=== PATIENT | female | born 1970 | race Caucasian/White ===

== ENCOUNTER → 2017-12-05 11:57 | Outpatient (CLI) | payer OTHER, SELFPAY ==
[2017-12-05 14:11] LABS: Absolute Lymphocyte Count 1.89 X10^3/ul (0.83-4.51); Absolute Neutrophil Count 4.5 X10^3/uL (2.0-7.7); Basophil# 0.02 X10^3/uL; Basophil% 0.3 % (0-1); Eosinophil# 0.43 X10^3/uL; Hematocrit 43.6 % (37-47); Hemoglobin 14.6 g/dl (12.0-15.0); Lymphocyte # 1.89 X10^3/ul (4.0); Lymphocyte % 26.2 % (19-41); Mean Corp Hgb Conc 33.5 g/gl (32-36); Mean Corpuscular Hgb 29.7 pg (27.0-32.0); Mean Corpuscular Volume 88.8 fL (81-99); Mean Platelet Vol. 9.9 fl (6.2-12.0); Monocyte# 0.38 X10^3/uL; Monocyte% 5.3 % (0-10); Neutrophil # 4.49 X10^3/uL (2.7-7.7); Neutrophil % 62.1 % (47-70); POSITIVE COUNT NO; POSITIVE DIFFERENTIAL NO; POSITIVE MORPHOLOGY NO; Platelet Count 317 K/mm3 (150-450); RBC Distribution Width CV 12.6 % (11.6-14.6); RBC Distribution Width SD 40.4 fl (35.1-43.9); Red Blood Count 4.91 M/mm3 (4.2-5.4); White Blood Count 7.2 K/mm3 (4.4-11.0)
[2017-12-05 14:29] LABS: ALB/GLOB Ratio 0.8 RATIO (0.9-2.4); AST(SGOT) 28 U/L (15-37); Alanine Aminotransfer ALT/SGPT 39 U/L (13-56); Albumin, Serum 3.6 g/dL (3.2-5.0); Alkaline Phosphatase 98 U/L (45-117); Anion Gap 6 (5-15); BUN 8 mg/dL (7-18); BUN/Creat Ratio 11.1 RATIO (10-20); Calcium,Total 8.9 mg/dL (8.5-10.1); Chloride 103 mmol/L (98-107); Creatinine, Serum 0.72 mg/dL (0.55-1.02); EST Glomerular Filtration Rate 92 mL/min (>60); Est Glom Filt Rate - Afr Amer 112 mL/min (>60); Globulin 4.3 g/dL (2.2-4.2); Glucose 189 mg/dL (74-106); Magnesium 1.8 mg/dL (1.6-2.6); Potassium 4.2 mmol/L (3.5-5.1); Protein, Total 7.9 g/dL (6.4-8.2); Sodium Level 137 mmol/L (136-145); Thyroid Stim Hormone (TSH) 2.81 uIU/mL (0.358-3.74)
[2017-12-05 14:34] LABS: Microalbumin:Creatinine Ratio 117.4 mg/g CRE (<30 mg/g CRE)
== END ==
PROVIDERS: Family Provider Family Medicine; PCP Family Medicine; Visit Provider Family Medicine
DX: E13.65 Other specified diabetes mellitus with hyperglycemia (principal); I10 Essential (primary) hypertension; E03.9 Hypothyroidism, unspecified
CPT/HCPCS: 36415; 80053; 82043; 82570; 83036; 83735; 84443; 85025

== ENCOUNTER → 2018-06-20 09:04 | Outpatient (CLI) | payer OTHER, SELFPAY ==
[2018-06-20 17:36] LABS: Absolute Neutrophil Count 6.6 X10^3/uL (2.0-7.7); Basophil# 0.05 X10^3/uL; Basophil% 0.5 % (0-1); Eosinophil# 0.28 X10^3/uL; Eosinophils% 2.8 % (0-5); Hematocrit 42.4 % (37-47); Hemoglobin 14.4 g/dl (12.0-15.0); Lymphocyte % 24.3 % (19-41); Mean Corpuscular Hgb 30.1 pg (27.0-32.0); Mean Corpuscular Volume 88.7 fL (81-99); Monocyte# 0.59 X10^3/uL; Neutrophil # 6.55 X10^3/uL (2.7-7.7); Neutrophil % 66.2 % (47-70); Platelet Count 354 K/mm3 (150-450); RBC Distribution Width CV 12.6 % (11.6-14.6); RBC Distribution Width SD 40.2 fl (35.1-43.9); Red Blood Count 4.78 M/mm3 (4.2-5.4); White Blood Count 9.9 K/mm3 (4.4-11.0)
[2018-06-20 17:38] LABS: POSITIVE COUNT NO; POSITIVE DIFFERENTIAL NO; POSITIVE MORPHOLOGY NO
[2018-06-20 18:01] LABS: Hemoglobin A1c 9.1 % (4.2-6.3)
[2018-06-20 18:14] LABS: ALB/GLOB Ratio 0.8 RATIO (0.9-2.4); AST(SGOT) 17 U/L (15-37); Alanine Aminotransfer ALT/SGPT 41 U/L (13-56); Albumin, Serum 3.6 g/dL (3.2-5.0); Alkaline Phosphatase 118 U/L (45-117); BUN 9 mg/dL (7-18); BUN/Creat Ratio 15.1 RATIO (10-20); Calcium,Total 9.1 mg/dL (8.5-10.1); Cholesterol 211 mg/dL (200); EST Glomerular Filtration Rate 114 mL/min (>60); Est Glom Filt Rate - Afr Amer 138 mL/min (>60); Globulin 4.3 g/dL (2.2-4.2); Glucose 128 mg/dL (74-106); Protein, Total 7.9 g/dL (6.4-8.2); Triglycerides 164 mg/dL
[2018-06-20 18:15] LABS: Anion Gap 10 (5-15); Chloride 103 mmol/L (98-107); High Density Lipoprotein 48 mg/dL; Microalbumin,Random Urine 34.7 mg/L (NO RANGE EST.); Microalbumin:Creatinine Ratio 58.2 mg/g CRE (<30 mg/g CRE); Potassium 3.9 mmol/L (3.5-5.1); Sodium Level 139 mmol/L (136-145); T4 Free Direct 1.93 ng/dL (0.76-1.46); Thyroid Stim Hormone (TSH) 1.54 uIU/mL (0.358-3.74); Very Low Density Lipoprotein 33 mg/dL (5-40)
== END ==
PROVIDERS: Family Provider Family Medicine; PCP Family Medicine; Visit Provider Family Medicine
DX: R07.9 Chest pain, unspecified (principal); E11.29 Type 2 diabetes mellitus with other diabetic kidney complication
CPT/HCPCS: 36415; 80053; 80061; 82043; 82570; 83036; 84439; 84443; 85025

== ENCOUNTER → 2018-07-21 06:39 | Outpatient (CLI) | payer OTHER, SELFPAY ==
[2018-06-25 14:08] VITALS: BMI 45.4
--- NOTE | 2018-07-21 06:42 | ECHOD_ITS ---
Reason For Study: chest pain Procedure This was a 2D Doppler, Color Flow transthoracic echocardiogram. Exam performed in department. Left Ventricle Normal LV size. Left ventricular systolic function is normal. The estimated ejection fraction is 65 %. Stage 1 diastolic dysfunction. No regional wall motion abnormalities noted. Right Ventricle Normal RV size. Normal systolic function. Atria Normal left atrium. Normal right atrium. Mitral Valve Normal mitral valve. Tricuspid Valve Normal tricuspid valve. Mild tricuspid valve insufficiency. Pulmonary artery systolic pressure is 25 mmHg. Aortic Valve Normal aortic valve. Trisinus/trileaflet aortic valve. Pulmonic Valve Normal pulmonic valve. Great Vessels Normal aortic root. The pulmonary artery is normal size. Normal inferior vena cava. Pericardium/Pleural No pericardial effusion. MMode/2D Measurements & Calculations LVIDd: 4.3 cm IVSd: 1.1 cm Ao root diam: 2.8 cm LVIDs: 2.8 cm LVPWd: 1.1 cm RVDd: 3.6 cm FS: 35.6 % LAV(MOD-bp): 35.3 ml LA A4 area: 14.6 cm2 LA dimension(2D): 3.8 cm LAV(MOD-bp) Indexed: 17.7 ml/m2 LAV(MOD-sp2): 35.0 ml LAV(MOD-sp4): 35.7 ml RA A4 area: 9.7 cm2 Doppler Measurements & Calculations MV E max timothy: 80.4 cm/sec Lat Peak E' Timothy: 10.5 cm/sec Med Peak E' Timothy: 12.6 cm/sec MV A max timothy: 98.8 cm/sec E/E' lat: 7.7 E/E' med: 6.4 MV E/A: 0.81 Ao V2 max: 147.8 cm/sec LV V1 max: 105.4 cm/sec PA V2 max: 119.9 cm/sec Ao max P.7 mmHg LV V1 max P.5 mmHg TR max timothy: 224.3 cm/sec TR max P.2 mmHg Interpretation Summary Normal LV size. Left ventricular systolic function is normal. The estimated ejection fraction is 65 %. Stage 1 diastolic dysfunction. Mild tricuspid valve insufficiency. Ordering Physician: Michael Liu Referring Physician: Elmre Richards Performed By: Sera Escobar, ERIC, RVT
--- NOTE | 2018-07-21 09:56 | STRESSREP ---
Stress Test Report Exercise myocardial perfusion stress test. 47-year-old lady with a history of coronary artery disease. Medications: Indapamide losartan and amlodipine. Stress protocol: Resting EKG demonstrates normal sinus rhythm with a rate of 75 bpm right bundle branch block and a blood pressure 130/90 mmHg. The patient exercised according to the regular Nikolay protocol for total duration of 3 minutes and 25 seconds the maximum heart rate attained was 148 bpm which was 85% of maximum predicted heart rate the maximum workload was 5.1 metabolic equivalents. At rest there were no ST or T wave changes noted suggest ischemia peak exercise upsloping ST changes only were noted with number the criteria for ischemia. Frequent premature ventricular complexes were noted similar pattern of bigeminy as well as couplets. No sustained runs were noted. The resting blood pressure 130/90 with a peak blood pressure 160/88. Myocardial perfusion protocol. 14.1 mCi of technetium 99m sestamibi was injected at rest. The patient exercised according to regular Nikolay protocol for 3-1/2 minutes at peak exercise 44.3 mCi of technetium 99m sestamibi was injected stress images were obtained stress and rest images were reconstructed and compared in the short axis vertical long horizontal long axis. Gated images was obtained Perfusion SPECT analysis: Review of the stress images demonstrate a focal defect noted in the distal anterior wall and apex on the stress and resting images suggesting a previous infarct. The rest of the images appeared to be normal except for mild reduction in the mid anterior wall. The patient however did not exercise enough to induce ischemia in this territory. Gated SPECT analysis: The gated ejection fraction is noted to be 80%. Conclusion: Myocardial perfusion stress test with evidence of apical infarct. Low exercise capacity does not completely exclude ischemia. Preserved ejection fraction.
== END ==
PROVIDERS: Family Provider Family Medicine; PCP Family Medicine; Referring Provider Internal Medicine Cardiovascular Disease; Visit Provider Internal Medicine Cardiovascular Disease
DX: E78.5 Hyperlipidemia, unspecified (principal)
CPT/HCPCS: 78452; 93017; 93306; A9500; A4216

== ENCOUNTER → 2018-07-23 09:33 | Outpatient (CLI) | payer OTHER, SELFPAY ==
[2018-06-25 14:08] VITALS: BMI 45.4
--- NOTE | 2018-07-23 09:36 | RAD_ITS ---
STUDY: X-RAY CHEST REASON FOR EXAM: Female, 47 years old. Chest pain TECHNIQUE: Frontal and lateral views COMPARISON: None. FINDINGS: Slightly elevated right hemidiaphragm. The lungs are clear and expanded. There is no demonstrated pleural abnormality. Normal size heart. Normal mediastinum and tim. Normal visualized pulmonary arteries. Normal visualized aortic arch and descending thoracic aorta. Normal visualized thoracic spine. Normal visualized ribs, clavicles, and shoulders. There is no demonstrated abnormality of the visualized soft tissue structures of the upper abdomen. RAD/Chest PA and Lateral IMPRESSION: Normal x-ray examination of the chest. Electronically Signed: Girish Mora DO at 23:52 EDT Tel [phone], Service support ,
== END ==
PROVIDERS: Family Provider Family Medicine; PCP Family Medicine; Referring Provider Internal Medicine Cardiovascular Disease; Visit Provider Internal Medicine Cardiovascular Disease
DX: I10 Essential (primary) hypertension (principal); R07.9 Chest pain, unspecified; R94.31 Abnormal electrocardiogram [ECG] [EKG]; I45.10 Unspecified right bundle-branch block
CPT/HCPCS: 71046

== ENCOUNTER 2018-07-30 06:51 | Day surgery (SDC) | payer OTHER, SELFPAY ==
[2018-06-25 14:08] VITALS: BMI 45.4
[2018-07-23 09:42] LABS: Absolute Lymphocyte Count 1.96 X10^3/ul (0.83-4.51); Absolute Neutrophil Count 5.3 X10^3/uL (2.0-7.7); Basophil# 0.04 X10^3/uL; Basophil% 0.5 % (0-1); Eosinophil# 0.38 X10^3/uL; Eosinophils% 4.7 % (0-5); Hematocrit 41.4 % (37-47); Hemoglobin 13.9 g/dl (12.0-15.0); Lymphocyte # 1.96 X10^3/ul (4.0); Mean Corp Hgb Conc 33.6 g/gl (32-36); Mean Corpuscular Hgb 29.8 pg (27.0-32.0); Mean Corpuscular Volume 88.7 fL (81-99); Mean Platelet Vol. 9.4 fl (6.2-12.0); Monocyte# 0.49 X10^3/uL; Neutrophil # 5.26 X10^3/uL (2.7-7.7); Neutrophil % 64.6 % (47-70); Platelet Count 379 K/mm3 (150-450); RBC Distribution Width CV 12.5 % (11.6-14.6); RBC Distribution Width SD 40.1 fl (35.1-43.9); Red Blood Count 4.67 M/mm3 (4.2-5.4); White Blood Count 8.2 K/mm3 (4.4-11.0)
[2018-07-23 09:45] LABS: POSITIVE COUNT NO; POSITIVE DIFFERENTIAL NO; POSITIVE MORPHOLOGY NO
[2018-07-23 09:52] LABS: Prothrombin Time (Protime)PT. 12.7 SECONDS (11.7-14.9)
[2018-07-23 10:02] LABS: Anion Gap 6 (5-15); BUN 10 mg/dL (7-18); BUN/Creat Ratio 15.8 RATIO (10-20); Calcium,Total 8.9 mg/dL (8.5-10.1); Chloride 106 mmol/L (98-107); Creatinine, Serum 0.63 mg/dL (0.55-1.02); EST Glomerular Filtration Rate 107 mL/min (>60); Est Glom Filt Rate - Afr Amer 129 mL/min (>60); Glucose 143 mg/dL (74-106); Sodium Level 140 mmol/L (136-145)
[2018-07-29 07:47] VITALS: BMI 45.5
--- NOTE | 2018-07-30 08:02 | PCM.CONS.C ---
Reason for Consult Date of Consultation: 07/30/18 Reason for Consultation: Chest pain History of Present Illness: KVNG PÉREZ, is a 47 F who presents to the hospital for a cardiac catheterization procedure. She is a pleasant lady with a history of hypertension, hyperlipidemia, diabetes mellitus, obesity who says that she is been having some chest discomfort episodes and on the last visit to her college campus she found that she was really struggling to keep up. She is denied any dizziness or diaphoresis near syncope or syncope but she has this tightness across her chest and also in her armpits. Exercise capacity she thinks has reduced recently. She also has a history of partial thyroidectomy but her TSH has been normal. She has had no other major surgeries. She did have an electrocardiogram performed which demonstrated sinus rhythm with a right bundle branch block pattern. Her physical exam here today demonstrates clear lung horowitz regular rate and rhythm no pedal edema her blood pressure is normal . Past Medical History Allergies/Adverse Reactions: Allergies aspirin Allergy (Verified 06/25/18 13:55) Anaphylaxis codeine Allergy (Verified 06/25/18 13:55) Anaphylaxis Penicillins Allergy (Verified 06/25/18 13:55) rash acetaminophen [From Vicodin] Adverse Reaction (Verified 06/25/18 13:55) syncope erythromycin base [From Erythrocin] Adverse Reaction (Verified 06/25/18 13:55) Unknown hydrocodone [From Vicodin] Adverse Reaction (Verified 06/25/18 13:55) syncope ketorolac [From Toradol] Adverse Reaction (Verified 06/25/18 13:57) anxious Home Medications: Ambulatory Orders Medication Instructions Recorded buspirone 10 mg tablet 10 mg PO DAILY tab 06/24/18 ergocalciferol (vitamin D2) 50,000 unit PO .weekly tab 06/24/18 unit tablet glatiramer 40 mg/mL subcutaneous 40 mg SC ONCE 06/24/18 syringe indapamide 1.25 mg tablet 1.25 mg PO QAM 06/24/18 insulin glargine (U-300) conc. 300 30 unit SC DAILY 06/24/18 unit/mL (3 mL) subcutaneous pen levothyroxine 150 mcg capsule 150 mcg PO DAILY 06/24/18 losartan 50 mg tablet 50 mg PO BID tab 06/24/18 magnesium 400 mg (as magnesium 400 mg PO BID tab 06/24/18 oxide) tablet metformin 500 mg tablet 500 mg PO BID 06/24/18 amlodipine 10 mg tablet 10 mg PO DAILY #90 tab 06/25/18 clopidogrel 75 mg tablet 75 mg PO QDAY #30 tab 07/23/18 Past Medical History (Chronic Problems): Chronic Problems (Last Reviewed 06/25/18 @ 14:35 by Michael Liu MD) Essential (primary) hypertension (Chronic) Hyperlipidemia (Chronic) Right bundle branch block (RBBB) (Chronic) Smoking Status: Former smoker Alcohol: None Drugs: None Review of Systems - Review of Systems General: Denies: Fever, Night Sweats, Fatigue HEENT: Denies: Vision Change Cardiovascular: Reports: Chest Discomfort. Denies: Shortness of Breath, Orthopnea, PND, Peripheral Edema, Palpitations, Lightheadedness, Dizziness, Near Syncope, Syncope Respiratory: Denies: Cough, Sputum Production, Hemoptysis Gastrointestinal: Denies: Hematemesis, Hematochezia, Melena Genitourinary: Denies: Dysuria, Hematuria Skin: Denies: Rash Neurological: Reports: Dizziness Psychiatric: Reports: Anxiety Endocrine: Reports: Heat Intolerance Hematologic/ Lymphatic: Reports: Lymph Node Enlargement Objective: Weight: 233 lb Body Mass Index (BMI) 45.5 Rhythm: EKG: ECHO: Stress Test: Cardiac Cath: PCI: CT Surgery: Holter monitor: EPS: PPM: CXR: Chest CT Scan: Assessment/Plan 1, Abnormal stress test. She does have a history of an abnormal stress test with evidence of previous apical infarct. She exercised to a low metabolic workload and therefore ischemia cannot be completely excluded. On the basis of this it was decided to pursue a cardiac catheterization the risk benefits alternatives have been explained to her she understands and agrees to proceed. Depending on the results further recommendations will be made. Thank you for allowing me to participate in the care of your patient. Please don't hesitate to call if any issues arise
--- NOTE | 2018-07-30 09:10 | CL.D_ITS ---
Patient Name: KVNG PÉREZ Study Date: 07/30/2018 Performing: Michael Liu MD Ht: 59.84 inches 152 cm : 1970 Wt: 233.69 lbs 106 kg Age: 47 Gender: female BSA: 1.99 PROCEDURE(S) PERFORMED HK32-MTU/COR/LV CLINICAL PROFILE AND INDICATIONS Indications: Suspected CAD Heart Failure: None Stress/Imaging Stress Test w/SPECT MPI: Yes Result: IndeterminantStress Test with SPECT MPI: Inde terminant CAD Presentations: Symptom unlikely to be ischemic. CONCLUSIONS Essentially normal coronary arteries with mild myocardial bridging in a small area of apical akinesis and preserved ejection fraction. RECOMMENDATIONS Medical therapy DESCRIPTION OF PROCEDURE The patient arrived to the procedure lab. The risks and benefits of the procedure as well as a full d escription of our services here and current unavailability of surgical backup were fully explained to the patient and/or their significant other prior to the catheterization. The Timeout was completed, verifying the correct patient and procedure. The patient's procedural site was prepped and draped in the usual fashion. Local anesthetic was given subcutaneously to right radial region with Lidocaine 2% . Using a modified Seldinger technique, arterial access was obtained via the right radial artery, a 6 Fr sheath was inserted. Left Coronary Artery selective angiography was performed in multiple views u sing a 5 Fr. 4.0 [place] catheter. Right Coronary Artery selective angiography was then performed in mu ltiple views using a 5 Fr. Angled Pigtail catheter. Left Ventriculography was performed in KAY projec tion using a 5 Fr. Pigtail catheter. LV to AO pullback pressures were then recorded.The arterial sheath was pulled and a TR Band was applied for hemostasis CORONARY ANGIOGRAPHY DOMINANCE: Right Dominant LEFT HEART ASSESSMENT Left Ventricular Ejection Fraction: by LV Gram 55 % Apical Akinesis Normal Left Ventricular systolic function LEFT MAIN: Angiographically normal LEFT ANTERIOR DECENDING ARTERY: No significant disease noted, Myocardial bridging CIRCUMFLEX ARTERY: Angiographically normal RIGHT CORONARY ARTERY: Angiographically normal COMPLICATIONS No Complications PROCEDURE MEDICATIONS Versed 1 mg IV Fentanyl 50 mcg IV Versed 1 mg IV Oxygen: 2 L/min via nasal cannula Heparin diluted in 23cc Heparinized saline. Patient given 10cc IA of this solution. 07/30/2018 08:09: 45 Verapamil 2.5mg, Ntg 100mcgs, 2000 units of Heparin diluted in 23cc Heparinized saline. Patient give n 10cc IA of this solution. 07/30/2018 08:09:45 SUMMARY OF HEMODYNAMIC DATA Time AIR REST ECG 07:10:14 AO 96/67 (80) SA 08:12:12 LV 111/0, 11 08:20:06 LV 115/0, 10 08:20:14 LV 125/1, 10 08:21:40 Signed By Michael Liu MD On 07/30/2018 09:09:11 Michael Liu MD
== END 2018-07-30 13:05 | disposition home or self-care (01) ==
LOC: CLSP 06:51
PROVIDERS: Family Provider Family Medicine; PCP Family Medicine; Referring Provider Internal Medicine Cardiovascular Disease; Visit Provider Internal Medicine Cardiovascular Disease
DX: R07.9 Chest pain, unspecified (principal); I10 Essential (primary) hypertension; E78.5 Hyperlipidemia, unspecified; I45.10 Unspecified right bundle-branch block; E11.69 Type 2 diabetes mellitus with other specified complication; R80.9 Proteinuria, unspecified; E03.9 Hypothyroidism, unspecified; G35 Multiple sclerosis; E55.9 Vitamin D deficiency, unspecified; E66.9 Obesity, unspecified; Z68.42 Body mass index [BMI] 45.0-49.9, adult; Z79.4 Long term (current) use of insulin; Z79.899 Other long term (current) drug therapy; Z87.891 Personal history of nicotine dependence
CPT/HCPCS: 36415; 80048; 85025; 85610; 93458; 99152; 99153; J7040; C1769; C1894; Q9967

== ENCOUNTER → 2019-02-19 09:54 | Outpatient (CLI) | payer OTHER, SELFPAY ==
[2019-02-18 15:24] VITALS: BMI 45.4
--- NOTE | 2019-02-18 15:40 | LIP_PTH ---
PATIENT: KVNG PÉREZ LOC: [facility] U#:[id number] AGE/SX: 54/F ROOM: RE02/19/[address]: Dr. Julio Gregorio MD : 1970 BED: DIS: SPEC #: [id number] RECD: 02/19/19 09:27 STATUS: GOMEZ MERE #: [id number] JACQUELIN: 02/18/19 15:[address]: Julio Gregorio DEPT: SURGICAL PATHOLOGY RECD BY: Carlos Sanchez ENTERED: 02/19/19 10:45 SP TYPE: LIPOMA OTHR DR: Dr. Elmer Richards MD Tissues: Soft tissues, NOS Procedures: Surgery Specimen Level III HEADER OPERATION: Excision right frontoparietal lipoma PRE-OP DIAGNOSIS: Right frontoparietal lipoma TISSUE SUBMITTED: Right frontoparietal lipoma MICROSCOPIC DIAGNOSIS Soft tissue mass, right frontoparietal region, excision: Mature adipose tissue consistent with lipoma. SJ:deborah 02/20/19 MICROSCOPIC DESCRIPTION Slides are reviewed. GROSS DESCRIPTION Received in fixative is one container labeled with the patient's name and designated right frontoparietal lipoma. The specimen consists of a piece of yellow adipose tissue measuring 2 x 2 x 0.3 cm. Also present in the container are multiple pieces of yellow adipose tissue measuring in aggregate 1 x 0.3 x 0.3 cm. The largest piece is bisected. The entire specimen is submitted in one cassette. / MARIELA:deborah 02/19/19 TC:1 CPT: 64131
== END ==
PROVIDERS: Family Provider Family Medicine; PCP Family Medicine; Referring Provider Surgery; Visit Provider Surgery
DX: D17.0 Benign lipomatous neoplasm of skin and subcutaneous tissue of head, face and neck (principal)
CPT/HCPCS: 88304

== ENCOUNTER → 2019-03-30 09:43 | Outpatient (CLI) | payer OTHER, SELFPAY ==
[2019-02-18 15:24] VITALS: BMI 45.4
[2019-03-30 12:18] LABS: Absolute Lymphocyte Count 1.77 X10^3/uL (0.83-4.51); Absolute Neutrophil Count 4.7 X10^3/uL (2.0-7.7); Basophil# 0.05 X10^3/uL; Basophil% 0.7 % (0-1); Eosinophil# 0.35 X10^3/uL; Eosinophils% 4.9 % (0-5); Hematocrit 43.4 % (37-47); Hemoglobin 14.6 g/dL (12.0-15.0); Lymphocyte # 1.77 X10^3/ul (4.0); Lymphocyte % 24.6 % (19-41); Mean Corp Hgb Conc 33.6 g/dL (32-36); Mean Corpuscular Hgb 30.5 pg (27.0-32.0); Mean Corpuscular Volume 90.8 fL (81-99); Mean Platelet Vol. 9.9 fl (6.2-12.0); Monocyte# 0.34 X10^3/uL; Monocyte% 4.7 % (0-10); NRBC Flagged by Analyzer 0 % (0-5); Neutrophil # 4.66 X10^3/uL (2.7-7.7); Neutrophil % 64.8 % (47-70); Platelet Count 359 K/mm3 (150-450); RBC Distribution Width CV 11.9 % (11.6-14.6); RBC Distribution Width SD 39.6 fl (35.1-43.9); Red Blood Count 4.78 M/mm3 (4.2-5.4); White Blood Count 7.2 K/mm3 (4.4-11.0)
[2019-03-30 12:34] LABS: Hemoglobin A1c 7.7 % (4.2-6.3)
[2019-03-30 12:36] LABS: ALB/GLOB Ratio 0.9 RATIO (0.9-2.4); AST(SGOT) 17 U/L (15-37); Alanine Aminotransfer ALT/SGPT 31 U/L (13-56); Albumin, Serum 3.5 g/dL (3.2-5.0); Alkaline Phosphatase 98 U/L (45-117); Anion Gap 7 (5-15); BUN 10 mg/dL (7-18); BUN/Creat Ratio 13.8 RATIO (10-20); Calcium,Total 9.2 mg/dL (8.5-10.1); Chloride 106 mmol/L (98-107); Cholesterol 228 mg/dL (200); Creatinine, Serum 0.73 mg/dL (0.55-1.02); EST Glomerular Filtration Rate 91 mL/min (>60); Est Glom Filt Rate - Afr Amer 110 mL/min (>60); Glucose 155 mg/dL (74-106); High Density Lipoprotein 48 mg/dL; Magnesium 1.8 mg/dL (1.6-2.6); Potassium 4.3 mmol/L (3.5-5.1); Protein, Total 7.5 g/dL (6.4-8.2); Sodium Level 139 mmol/L (136-145); T4 Free Direct 1.62 ng/dL (0.76-1.46); Thyroid Stim Hormone (TSH) 2.24 uIU/mL (0.358-3.74); Triglycerides 163 mg/dL; Very Low Density Lipoprotein 33 mg/dL (5-40)
[2019-03-30 12:37] LABS: Vitamin D,25 Hydroxy 29.4 ng/mL (29.95-100.01)
[2019-03-30 12:44] LABS: PTHIN 62.5 pg/mL (18.4-80.1)
== END ==
PROVIDERS: Family Provider Family Medicine; PCP Family Medicine; Visit Provider Family Medicine
DX: E11.29 Type 2 diabetes mellitus with other diabetic kidney complication (principal); E03.9 Hypothyroidism, unspecified; I10 Essential (primary) hypertension; R53.83 Other fatigue; E78.00 Pure hypercholesterolemia, unspecified
CPT/HCPCS: 36415; 80053; 80061; 82306; 83036; 83735; 83970; 84439; 84443; 85025

== ENCOUNTER → 2019-12-29 16:13 | Outpatient (CLI) | payer OTHER, SELFPAY ==
[2019-09-30 13:34] VITALS: BMI 45.4
[2019-12-29 17:42] LABS: Vitamin D,25 Hydroxy 31.9 ng/mL
[2019-12-29 17:46] LABS: ALB/GLOB Ratio 0.8 RATIO (0.9-2.4); AST(SGOT) 20 U/L (15-37); Alanine Aminotransfer ALT/SGPT 30 U/L (13-56); Albumin, Serum 3.5 g/dL (3.2-5.0); Alkaline Phosphatase 95 U/L (45-117); Anion Gap 5 (5-15); BUN 13 mg/dL (7-18); BUN/Creat Ratio 19.3 RATIO (10-20); Chloride 105 mmol/L (98-107); Cholesterol 224 mg/dL (200); Creatinine, Serum 0.68 mg/dL (0.55-1.02); EST Glomerular Filtration Rate 98 mL/min (>60); Est Glom Filt Rate - Afr Amer 119 mL/min (>60); Globulin 4.3 g/dL (2.2-4.2); Glucose 92 mg/dL (74-106); High Density Lipoprotein 50 mg/dL; Potassium 3.7 mmol/L (3.5-5.1); Protein, Total 7.8 g/dL (6.4-8.2); Sodium Level 136 mmol/L (136-145); T4 Free Direct 1.63 ng/dL (0.76-1.46); Thyroid Stim Hormone (TSH) 0.18 uIU/mL (0.358-3.74); Triglycerides 192 mg/dL; Very Low Density Lipoprotein 38 mg/dL (5-40)
[2019-12-29 17:52] LABS: Microalbumin:Creatinine Ratio 19.8 mg/g CRE (<30 mg/g CRE)
== END ==
PROVIDERS: PCP Family Medicine; Referring Provider Internal Medicine Endocrinology, Diabetes & Metabolism; Visit Provider Internal Medicine Endocrinology, Diabetes & Metabolism
DX: E11.9 Type 2 diabetes mellitus without complications (principal); I10 Essential (primary) hypertension; E78.5 Hyperlipidemia, unspecified; E06.3 Autoimmune thyroiditis; E03.8 Other specified hypothyroidism; E55.9 Vitamin D deficiency, unspecified
CPT/HCPCS: 36415; 80053; 80061; 82043; 82306; 82570; 84439; 84443

== ENCOUNTER → 2020-05-03 12:11 | Outpatient (CLI) | payer OTHER, SELFPAY ==
[2020-05-03 11:36] VITALS: BMI 45.0
[2020-05-03 15:27] LABS: Vitamin D,25 Hydroxy 20.3 ng/mL
[2020-05-03 15:31] LABS: ALB/GLOB Ratio 0.9 RATIO (0.9-2.4); AST(SGOT) 27 U/L (15-37); Alanine Aminotransfer ALT/SGPT 42 U/L (13-56); Albumin, Serum 3.5 g/dL (3.2-5.0); Alkaline Phosphatase 105 U/L (45-117); Anion Gap 6 (5-15); BUN 14 mg/dL (7-18); BUN/Creat Ratio 21.3 RATIO (10-20); Calcium,Total 8.9 mg/dL (8.5-10.1); Chloride 103 mmol/L (98-107); Cholesterol 264 mg/dL (200); Creatinine, Serum 0.66 mg/dL (0.55-1.02); EST Glomerular Filtration Rate 101 mL/min (>60); Est Glom Filt Rate - Afr Amer 123 mL/min (>60); Globulin 4.1 g/dL (2.2-4.2); Glucose 125 mg/dL (74-106); High Density Lipoprotein 63 mg/dL; Potassium 4.4 mmol/L (3.5-5.1); Protein, Total 7.6 g/dL (6.4-8.2); Sodium Level 135 mmol/L (136-145); T4 Free Direct 1.46 ng/dL (0.76-1.46); Thyroid Stim Hormone (TSH) 1.81 uIU/mL (0.358-3.74); Triglycerides 170 mg/dL; Very Low Density Lipoprotein 34 mg/dL (5-40)
[2020-05-03 15:58] LABS: Microalbumin,Random Urine 23.4 mg/L (NO RANGE EST.); Microalbumin:Creatinine Ratio 81.5 mg/g CRE (<30 mg/g CRE)
== END ==
PROVIDERS: PCP Family Medicine; Referring Provider Internal Medicine Endocrinology, Diabetes & Metabolism; Visit Provider Internal Medicine Endocrinology, Diabetes & Metabolism
DX: E03.8 Other specified hypothyroidism (principal); E06.3 Autoimmune thyroiditis; E55.9 Vitamin D deficiency, unspecified; E11.9 Type 2 diabetes mellitus without complications; E78.5 Hyperlipidemia, unspecified; I10 Essential (primary) hypertension
CPT/HCPCS: 36415; 80053; 80061; 82043; 82306; 82570; 84439; 84443

== ENCOUNTER → 2020-05-23 | Outpatient (CLI) | payer OTHER, BC, SELFPAY ==
[2020-05-03 11:36] VITALS: BMI 45.0
== END | disposition home or self-care (01) ==
PROVIDERS: PCP Family Medicine; Visit Provider Obstetrics & Gynecology
DX: Z36.85 Encounter for antenatal screening for Streptococcus B (principal)
CPT/HCPCS: 87081

== ENCOUNTER 2020-07-19 14:02 | Outpatient (RCR) | payer OTHER, BC, SELFPAY ==
[2020-05-03 11:36] VITALS: BMI 45.0
[2020-07-19] MEDS: COVID-19 VACC, MRNA(PFIZER)/PF 30 MCG/0.3 ML SYRINGE IM (13:48)
[2020-08-09] MEDS: COVID-19 VACC, MRNA(PFIZER)/PF 30 MCG/0.3 ML SYRINGE IM (13:52)
== END 2020-07-19 23:59 ==
LOC: IMMUN 14:02
PROVIDERS: PCP Family Medicine; Visit Provider Family Medicine
DX: Z23 Encounter for immunization (principal)
CPT/HCPCS: 0001A; 0002A; 91300

== ENCOUNTER → 2020-09-22 12:43 | Outpatient (CLI) | payer OTHER, SELFPAY ==
[2020-09-15 11:19] VITALS: BMI 45.1
== END ==
PROVIDERS: PCP Family Medicine; Referring Provider Physician Assistant Medical; Visit Provider Physician Assistant Medical
DX: R00.2 Palpitations (principal); R07.9 Chest pain, unspecified; R06.00 Dyspnea, unspecified
CPT/HCPCS: 93225; 93226

== ENCOUNTER → 2020-10-13 12:37 | Outpatient (CLI) | payer OTHER, SELFPAY ==
[2020-09-15 11:19] VITALS: BMI 45.1
== END ==
PROVIDERS: PCP Family Medicine; Referring Provider Physician Assistant Medical; Visit Provider Physician Assistant Medical
DX: I44.1 Atrioventricular block, second degree (principal); Q24.5 Malformation of coronary vessels
CPT/HCPCS: 93225; 93226

== ENCOUNTER → 2020-12-20 16:19 | Outpatient (CLI) | payer OTHER, SELFPAY ==
[2020-09-15 11:19] VITALS: BMI 45.1
--- NOTE | 2020-12-20 16:20 | BI_ITS ---
MAMMOGRAPHY - BILATERAL SCREENING REASON FOR EXAM: Female, 50 years old. Routine annual screening examination. PERTINENT HISTORY: Grandmother with breast cancer. TECHNIQUE: Digital bilateral breast verito (3D mammographic acquisition) in the CC and MLO projections. 2-D mediolateral oblique (MLO) and craniocaudad (CC) views of both breasts were obtained. CAD: Full Field Digital Mammography with Computer Added Detection was performed. COMPARISON: Comparison is made with prior outside examination dated 10/19/2019. FINDINGS: Breast Composition: The breasts are heterogeneously dense, which may obscure small masses. There are no dominant masses or suspicious calcifications. Stable benign-appearing bilateral axillary lymph nodes. No other significant abnormalities are identified. There has been no significant change since the prior study. BI/SCRN MAMM (CAD)W/VERITO BILAT IMPRESSION: Stable bilateral screening mammogram. Yearly follow-up mammogram recommended. (A) ASSESSMENT CATEGORY: BIRADS Category 2: Benign. A letter regarding these results will be sent to the patient by the facility within 30 days. Approximately 10% of breast cancers are not detected by mammography. A normal mammogram should not delay biopsy of a clinically suspicious abnormality. [id number] Electronically Signed: Chauncey Estrada MD at 8:15 EDT , Service support ,
[2020-12-20 18:00] LABS: Vitamin D,25 Hydroxy 42.8 ng/mL
== END ==
PROVIDERS: Nurse Practitioner Family; PCP Family Medicine; Referring Provider Obstetrics & Gynecology; Visit Provider Obstetrics & Gynecology
DX: Z12.31 Encounter for screening mammogram for malignant neoplasm of breast (principal); E55.9 Vitamin D deficiency, unspecified
CPT/HCPCS: 36415; 77063; 77067; 82306

== ENCOUNTER 2021-01-17 06:59 | Day surgery (SDC) | payer OTHER, SELFPAY ==
--- NOTE | 2021-01-17 07:16 | HP.PCM_ITS ---
HPI - General HPI Narrative KVNG PÉREZ, is a 50 F who presents for screening colonoscopy. This is based upon age. She has no bright red blood per rectum or melena. No change in bowel habits. She has not had COVID-19. She has been vaccinated. She states that Dr. 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 She has essential hypertension right bundle branch block and hyperlipidemia. It also appears that she is on Ozempic and insulin and gabapentin and Jardiance in addition to her other medicines She states that she does get short of breath when she walks approximately 1 mile [facility] Medical History (Updated 01/17/21 @ 07:[address] Julio Gregorio MD) Abnormal electrocardiogram Anemia Anxiety Arthritis Back pain Cardiology follow-up encounter Cervicalgia Coronary-myocardial bridge Dietary restriction Easy bruising Essential (primary) hypertension Excessive bleeding Former smoker History of echocardiogram History of edema History of pain when walking History of stress test Hx of vertigo Hyperlipidemia Hypothyroidism Insomnia Migraine headache Mobitz type 2 second degree AV block Multiple sclerosis Multiple sclerosis Obesity Obesity Rheumatoid arthritis Right bundle branch block (RBBB) Seasonal allergies Shortness of breath on exertion Spinal stenosis Thyroid disease Type 2 diabetes mellitus Uncontrolled diabetes mellitus with microalbuminuria Vitamin D deficiency Home Medications glatiramer 40 mg/mL subcutaneous syringe 40 mg SC .Q3DAYS 06/24/18 [History Last Taken Unknown] losartan 50 mg tablet 100 mg PO DAILY tab 09/29/20 [History Last Taken Unknown] amlodipine 5 mg tablet 2.5 mg PO DAILY tab 10/28/20 [History Last Taken Unknown] hydrochlorothiazide 25 mg tablet 25 mg PO DAILY #30 tab 10/28/20 [Rx Last Taken Unknown] cholecalciferol (vitamin D3) 1,250 mcg PO .Q2WEEK 01/16/21 [History Last Taken Unknown] empagliflozin [Jardiance] 25 mg PO DAILY 01/16/21 [History Last Taken Unknown] gabapentin 300 mg PO QHS 01/16/21 [History Last Taken Unknown] insulin degludec [Tresiba FlexTouch U-100] 28 unit SC 1500 01/16/21 [History Last Taken Unknown] levothyroxine 150 mcg PO DAILY 01/16/21 [History Last Taken Unknown] meloxicam [Mobic] 7.5 mg PO DAILY 01/16/21 [History Last Taken Unknown] semaglutide [Ozempic] 1 mg SC WEBB 01/16/21 [History Last Taken 01/08/21] tizanidine 4 mg PO QHS 01/16/21 [History Last Taken Unknown] Allergy/AdvReac Type Severity Reaction Status Date / Time aspirin Allergy Anaphylaxis Verified 01/16/21 11:41 codeine Allergy Anaphylaxis Verified 01/16/21 11:41 Penicillins Allergy rash Verified 01/16/21 11:41 acetaminophen [From Vicodin] AdvReac syncope Verified 01/16/21 11:41 erythromycin base AdvReac Unknown Verified 01/16/21 11:41 [From Erythrocin] hydrocodone [From Vicodin] AdvReac syncope Verified 01/16/21 11:41 ketorolac [From Toradol] AdvReac anxious Verified 01/16/21 11:41 Family History Other Adopted Surgical History (Updated 01/16/21 @ 11:59 by Katina Martinez) H/O partial thyroidectomy History of cardiac catheterization History of carpal tunnel release History of hysterectomy History of left heart catheterization (07/30/18) History of parathyroidectomy Hx of cholecystectomy Social History Smoking Status: Former smoker quit date: 05/06/96 pack-years: 2 alcohol intake: never substance use type: does not use caffeine: Yes what type of physical activity do you participate in: walking frequency: daily ROS Constitutional Constitutional: Denies change in weight Cardiovascular Cardiovascular: Denies chest pain with activity Respiratory/Chest Respiratory/Chest: Reports shortness of breath with exertion Gastrointestinal Gastrointestinal: Denies change in bowel habits or change in stool character Physical Exam Const alert, oriented x3 and no apparent distress General Appearance: cooperative and comfortable Eyes General Eye: normal appearance of both eyes Neck General: normal visual inspection Chest inspection of chest normal Resp Effort and Inspection: able to speak in complete sentences and symmetric chest movement Auscultation: clear to auscultation bilaterally Cardio regular rate and regular rhythm GI soft to palpation, non-tender and non-distended Extremity no calf tenderness Neuro oriented x3 Psych thought process normal Assessment & Plan Assessment/Plan (1) Screening for intestinal cancer: PLAN: I recommended the patient a screening colonoscopy with possible biopsy or polypectomy as indicated. She is aware of the technique, benefit, risk, alternatives. Because of her medical comorbidities we have arranged monitored anesthesia care. It is a note that she does presents via open access today. She has had an opportunity to ask and have questions answered. We will proceed at her discretion. Julio Gregorio M.D., F.A.C.S. Procedure Criteria Type of Procedure Procedure Type: Elective Elective Risks - COVID COVID Risk Discussion: The surgeon/proceduralist and patient have discussed in detail the risk of exposure to and/or potential harm posed by the COVID-19 virus with having a surgery/procedure at this time versus the risk of delaying the surgery/procedure. It is not possible to know either the risk of delaying the surgery or procedure or chance of getting an infection with perfect accuracy, but a joint decision was made between the patient and the surgeon/proceduralist to proceed at this time with the scheduled surgery/procedure as indicated on the consent form.
[2021-01-17 07:20] VITALS: BP 184/97; PULSE 82; RESP 16; TEMP 36.4; O2SAT 96; BMI 46.2
[2021-01-17 07:45] LABS: Bedside Glucose 167 mg/dL (70-110)
--- NOTE | 2021-01-17 08:00 | COLBX_PTH ---
PATIENT: KVNG PÉREZ LOC: [facility] U#:[id number] AGE/SX: 50/F ROOM: RE01/17/[address]: Dr. Julio Gregorio MD : 1970 BED: DIS: 01/17/2021 SPEC #: [id number] RECD: 01/17/21 10:10 STATUS: GOMEZ SEVERINO #: [id number] JACQUELIN: 01/17/21 08:[address]: Julio Gregorio DEPT: SURGICAL PATHOLOGY RECD BY: Samia Cueva ENTERED: 01/17/21 12:28 SP TYPE: COLON BX OTHR DR: Dr. Elmer Richards MD Tissues: A - Transverse colon B - Rectum, NOS Procedures: Surgery Specimen Level IV HEADER OPERATION: Colonoscopy ? open access (MAC) PRE-OP DIAGNOSIS: Screening for intestinal cancer TISSUE SUBMITTED: A ? Distal transverse polyp biopsy, B ? Rectal polyp MICROSCOPIC DIAGNOSIS A. Distal transverse colon polyp, biopsy: Colonic mucosa with focal hyperplastic change. B. Rectal polyp, biopsy: Consistent with severely cauterized hyperplastic polyp. AM:deborah 01/18/2021 MICROSCOPIC DESCRIPTION Slides are reviewed. GROSS DESCRIPTION A - Received in fixative is one container labeled with the patient's name and designated distal transverse polyp biopsy. The specimen consists of multiple irregular fragments of light joya soft tissue that in aggregate measure 0.2 x 0.2 x 0.1 cm. The specimen is totally submitted in one cassette. B - Received in fixative is one container labeled with the patient's name and designated rectal polyp. The specimen consists of one irregular fragment of light joay soft tissue that measures 0.5 x 0.5 x 0.6 cm. The specimen is totally submitted in one cassette. / AM:deborah 01/17/2021 TC:5 [facility]: [id number] x2
[2021-01-17 08:51] VITALS: BP 124/75; BP 184/97; PULSE 92; RESP 16; TEMP 36.5; O2SAT 100
--- NOTE | 2021-01-17 08:51 | OP.COLON_ITS ---
Patient Name: Apple Landry Procedure Date: 01/17/2021 8:22 AM Date of : 1970 Age: 50 Procedure: Colonoscopy Indications: Screening for colorectal malignant neoplasm Providers: Julio Gregorio MD Medicines: See the Anesthesia note for documentation of the administered medications Patient Profile: Last Colonoscopy: none. The patient's first colonoscopy is today. Complications: No immediate complications. Procedure: Pre-Anesthesia Assessment: - Prior to the procedure, a History and Physical was performed, and patient medications and allergies were reviewed. The patient's tolerance of previous anesthesia was also reviewed. The risks and benefits of the procedure and the sedation options and risks were discussed with the patient. All questions were answered, and informed consent was obtained. Prior Anticoagulants: The patient has taken no previous anticoagulant or antiplatelet agents. ASA Grade Assessment: II - A patient with mild systemic disease. After reviewing the risks and benefits, the patient was deemed in satisfactory condition to undergo the procedure. After I obtained informed consent, the scope was passed under direct vision. Throughout the procedure, the patient's blood pressure, pulse, and oxygen saturations were monitored continuously. The adult colonoscope was introduced through the anus and advanced to the cecum, identified by appendiceal orifice and ileocecal valve. The colonoscopy was performed without difficulty. The patient tolerated the procedure well. The quality of the bowel preparation was good. The ileocecal valve and the appendiceal orifice were photographed. Scope In: 8:29:46 AM Scope Withdrawal Time 0 hours 7 minutes 48 seconds Scope Out: 8:45:33 AM Total Procedure Duration Time 0 hours 15 minutes 47 seconds Findings: Hemorrhoids were found on perianal exam. A 5 mm polyp was found in the distal transverse colon. The polyp was sessile. The polyp was removed with a cold biopsy forceps. Resection and retrieval were complete. A 8 mm polyp was found in the rectum. The polyp was sessile. The polyp was removed with a hot snare. Resection and retrieval were complete. The exam was otherwise without abnormality. Impression: - Hemorrhoids found on perianal exam. - One 5 mm polyp in the distal transverse colon, removed with a cold biopsy forceps. Resected and retrieved. - One 8 mm polyp in the rectum, removed with a hot snare. Resected and retrieved. - The examination was otherwise normal. Recommendation: - Discharge patient to home. - Resume previous diet. - Continue present medications. - Repeat colonoscopy in 5 years for surveillance based on pathology results. - Telephone my office for pathology results in 1 week. Procedure Code(s): --- Professional --- 75759, Colonoscopy, flexible; with removal of tumor(s), polyp(s), or other lesion(s) by snare technique 32319, 59, Colonoscopy, flexible; with biopsy, single or multiple Diagnosis Code(s): --- Professional --- Z12.11, Encounter for screening for malignant neoplasm of colon K64.9, Unspecified hemorrhoids D12.3, Benign neoplasm of transverse colon (hepatic flexure or splenic flexure) K62.1, Rectal polyp CPT copyright 2017 [employer]. All rights reserved. The codes documented in this report are preliminary and upon station mechanic review may be revised to meet current compliance requirements. Julio Gregorio MD 01/17/2021 8:50:25 AM This report has been signed electronically. Number of Addenda: 0 Note Initiated On: 01/17/2021 8:22 AM
--- NOTE | 2021-01-17 08:51 | OP.CCLET_ITS ---
01/17/2021 Elmer Richards [address] [place] [address] Re : Colonoscopy procedure for Apple Landry Dear Dr. Richards This procedure was performed on Sunday, January 17, 2021. My impressions and recommendations are as follows: Impressions : - Hemorrhoids found on perianal exam. - One 5 mm polyp in the distal transverse colon, removed with a cold biopsy forceps. Resected and retrieved. - One 8 mm polyp in the rectum, removed with a hot snare. Resected and retrieved. - The examination was otherwise normal. Recommendations : - Discharge patient to home. - Resume previous diet. - Continue present medications. - Repeat colonoscopy in 5 years for surveillance based on pathology results. - Telephone my office for pathology results in 1 week. My findings are described in the full procedure note, which is enclosed. If I can be of further assistance, please feel free to contact me at Doctor phone number(s): Work: . Sincerely, Julio Gregorio MD 01/17/2021 8:50:25 AM This report has been signed electronically.
[2021-01-17 08:55] VITALS: BP 117/98; BP 184/97; PULSE 93; RESP 16; O2SAT 99
[2021-01-17 09:00] VITALS: BP 102/75; BP 184/97; PULSE 82; RESP 16; O2SAT 100
[2021-01-17 09:06] VITALS: BP 118/73; BP 184/97; PULSE 80; RESP 16; TEMP 35.9; O2SAT 95
[2021-01-17 09:28] VITALS: BP 184/97
== END 2021-01-17 09:30 ==
LOC: EN 07:00 → AC 07:01
PROVIDERS: PCP Family Medicine; Referring Provider Family Medicine; Visit Provider Surgery
PROC: 0DJD8ZZ Inspection of Lower Intestinal Tract, Via Natural or Artificial Opening Endoscopic (ICD-10-PCS; CPT 45378; principal; 2021-01-17 07:55)
DX: Z12.11 Encounter for screening for malignant neoplasm of colon (principal); K63.5 Polyp of colon; K64.9 Unspecified hemorrhoids; K62.1 Rectal polyp; I10 Essential (primary) hypertension; E03.9 Hypothyroidism, unspecified; E55.9 Vitamin D deficiency, unspecified; E66.9 Obesity, unspecified; Z68.42 Body mass index [BMI] 45.0-49.9, adult; E78.5 Hyperlipidemia, unspecified; F41.9 Anxiety disorder, unspecified; G35 Multiple sclerosis; M06.9 Rheumatoid arthritis, unspecified; Q24.5 Malformation of coronary vessels; E11.9 Type 2 diabetes mellitus without complications; G47.00 Insomnia, unspecified; I45.10 Unspecified right bundle-branch block; Z86.2 Personal history of diseases of the blood and blood-forming organs and certain disorders involving the immune mechanism; Z79.4 Long term (current) use of insulin; Z79.899 Other long term (current) drug therapy; Z87.891 Personal history of nicotine dependence
CPT/HCPCS: 45380; 45385; 82962; 88305; J7120

== ENCOUNTER → 2021-01-31 10:48 | Outpatient (CLI) | payer OTHER, SELFPAY ==
--- NOTE | 2021-01-31 17:04 | PFTCOMP ---
COMPLETE PULMONARY FUNCTION TEST INTERPRETATION Brief HPI: Patient is a 50 year old female, currently under the care of Vesta Dahl, who presents to [facility] for complete pulmonary function tests secondary to diagnosis of dyspnea. Respiratory therapist reports good effort and reproducible results. Interpretation: Forced expiration spirometry shows no large airways obstructive ventilatory defect with an FEV1 of 86% predicted. There is no significant bronchodilator response by strict ATS criteria. Spirograms are of good quality and plateau normally. The respiratory flow volume loop shows a normal pattern. Lung volumes by body plethysmography show a normal total lung capacity at 3.63 L, 87% predicted. All other lung volumes are within normal limits. Diffusion capacity by carbon monoxide is normal at 73% predicted. The airway resistance is normal. No previous pulmonary function tests were available for review. Impression: These pulmonary function tests are within normal limits
== END ==
PROVIDERS: PCP Family Medicine; Referring Provider Nurse Practitioner Gerontology; Visit Provider Nurse Practitioner Gerontology
DX: R06.00 Dyspnea, unspecified (principal)
CPT/HCPCS: 94060; 94726; 94729

== ENCOUNTER 2021-02-05 19:24 | Observation (INO) | payer OTHER, SELFPAY ==
[2021-02-05 19:26] VITALS: BP 149/92; PULSE 77; RESP 14; TEMP 35.8; O2SAT 98; BMI 47.2
--- NOTE | 2021-02-05 19:44 | EKG12_ITS ---
Test Reason : PALPITATIONS Blood Pressure : / mmHG Vent. Rate : 075 BPM Atrial Rate : 075 BPM P-R Int : 240 ms QRS Dur : 146 ms QT Int : 438 ms P-R-T Axes : 051 -68 062 degrees QTc Int : 489 ms Sinus rhythm with 1st degree A-V block Right bundle branch block Left anterior fascicular block Bifascicular block Abnormal ECG Confirmed by JEAN CARLOS MCLAIN, ABI ([id number]), continuity editor MAE STILL ([id number]) on 02/07/2021 8:06:24 AM Referred By: Omid Dubois Confirmed By:ABI EVANGELISTA MD
--- NOTE | 2021-02-05 19:46 | EDS_ITS ---
HPI History of Present Illness Chief Complaint: Chest Other Detail of Chief Complaint: Palpitations Informant: patient Narrative Narrative: Patient presents to the emergency department with complaint of palpitations that she has had ongoing for months. Patient's had pulmonary function test recently and today began wearing a 30-day event monitor. Patient was called at home and told that she needed to call the ambulance to come to the emergency department. Patient called cardiology on-call and she was advised to come to the emergency department for suspected heart block. Patient denies any shortness of breath out of the ordinary. She denies any chest pain. She never had a pacemaker. She denies syncopal episodes. Prior similar symptoms: Yes PFSH [facility] Medical History (Updated 02/05/21 @ 20:[address] Priyanka Kidd, DO) Abnormal electrocardiogram Anemia Anxiety Arthritis Back pain Cardiology follow-up encounter Cervicalgia Coronary-myocardial bridge Dietary restriction Easy bruising Essential (primary) hypertension Excessive bleeding Former smoker History of echocardiogram History of edema History of pain when walking History of stress test Hx of vertigo Hyperlipidemia Hypothyroidism Insomnia Migraine headache Mobitz type 2 second degree AV block Multiple sclerosis Multiple sclerosis Obesity Obesity Obesity Rheumatoid arthritis Right bundle branch block (RBBB) Seasonal allergies Shortness of breath on exertion Spinal stenosis Thyroid disease Type 2 diabetes mellitus Uncontrolled diabetes mellitus with microalbuminuria Vitamin D deficiency Home Medications glatiramer 40 mg/mL subcutaneous syringe 40 mg SC .Q3DAYS 06/24/18 [History Last Taken Unknown] amlodipine 5 mg tablet 2.5 mg PO DAILY tab 10/28/20 [History Last Taken Unknown] cholecalciferol (vitamin D3) 1,250 mcg PO .Q2WEEK 01/16/21 [History Last Taken Unknown] empagliflozin [Jardiance] 25 mg PO DAILY 01/16/21 [History Last Taken Unknown] gabapentin 300 mg PO QHS 01/16/21 [History Last Taken Unknown] insulin degludec [Tresiba FlexTouch U-100] 28 unit SC 1500 01/16/21 [History Last Taken Unknown] levothyroxine 150 mcg PO DAILY 01/16/21 [History Last Taken Unknown] meloxicam [Mobic] 7.5 mg PO DAILY 01/16/21 [History Last Taken Unknown] tizanidine 4 mg PO QHS 01/16/21 [History Last Taken Unknown] rosuvastatin 5 mg tablet 5 mg PO DAILY #30 tab 01/23/21 [Rx Last Taken Unknown] semaglutide 1 mg/dose (4 mg/3 mL) subcutaneous pen injector 1 mg SUBCUT QWEEK #3 ml 01/23/21 [Rx Last Taken Unknown] hydrochlorothiazide 25 mg tablet 25 mg PO DAILY #30 tab 01/31/21 [Rx Last Taken Unknown] losartan 50 mg tablet 50 mg PO BID #180 tab 01/31/21 [Rx Last Taken Unknown] Allergy/AdvReac Type Severity Reaction Status Date / Time aspirin Allergy Anaphylaxis Verified 02/05/21 19:26 codeine Allergy Anaphylaxis Verified 02/05/21 19:26 Penicillins Allergy rash Verified 02/05/21 19:26 acetaminophen [From Vicodin] AdvReac syncope Verified 02/05/21 19:26 erythromycin base AdvReac Unknown Verified 02/05/21 19:26 [From Erythrocin] hydrocodone [From Vicodin] AdvReac syncope Verified 02/05/21 19:26 ketorolac [From Toradol] AdvReac anxious Verified 02/05/21 19:26 Family History Other Adopted Surgical History H/O partial thyroidectomy History of cardiac catheterization History of carpal tunnel release History of hysterectomy History of left heart catheterization (07/30/18) History of parathyroidectomy Hx of cholecystectomy Social History Smoking Status: Former smoker quit date: 05/06/96 pack-years: 2 alcohol intake: never substance use type: does not use caffeine: Yes what type of physical activity do you participate in: walking frequency: daily ROS ROS ED Constitutional Constitutional ED: Reports systems reviewed and no addt'l complaints, except as documented; Denies body ache(s), change in weight or chills Eyes Eyes: Denies acute decrease in peripheral vision, change in vision, double vision or loss of vision ENT ENT ED: Reports none; Denies ear pain, lip swelling, loss taste/smell, neck pain, otalgia or sore throat Cardiovascular Cardiovascular: Reports none and palpitations; Denies abdominal pain, chest pain with activity, leg edema, lightheadedness, rapid heart rate or syncope Respiratory/Chest Respiratory/Chest: Reports none; Denies change in mental status, dry cough, dyspnea, hemoptysis, shortness of breath at rest or shortness of breath with exertion Gastrointestinal Gastrointestinal: Reports none; Denies abdominal pain, change in stool character, diarrhea, hematemesis, hematochezia, melena, rectal bleeding or vomiting Genitourinary Genitourinary ED: Reports none; Denies abdominal discomfort, anuria, dysuria, genital pain or polyuria Musculoskeletal Musculoskeletal: Reports none; Denies arthralgias, back pain, difficulty walking, extremity pain, muscle weakness or myalgias Integumentary Reports none; Denies abscess or rash Neurologic Neurologic: Reports none; Denies abnormal gait, confusion, focal weakness, frequent falls, headache(s), loss of vision, numbness, paresthesias, radicular pain, vertigo or weakness Psychiatric Psychiatric: Reports systems reviewed and no addt'l complaints, except as documented and none; Denies behavioral changes, confusion, difficulty concentrating, hallucinations, suicidal ideation, tactile hallucinations or visual hallucinations Endocrine Endocrinology: Denies none, cold intolerance, excessive sweating, fatigue or heat intolerance Hematologic/Lymphatic Hematologic/Lymphatic: Reports none; Denies anemia, easy bleeding or easy bruising Allergic/Immunologic Allergic/Immunologic ED: Denies as per HPI, none, lip swelling, mouth swelling, throat swelling, tongue swelling or hives EXAM Physical Exam Const Vital Signs: 02/05/21 19:26 02/05/21 19:44 Temperature 96.5 F L Temperature Source Temporal Pulse Rate 77 Respiratory Rate 14 Respiratory Effort Normal Non-Labored Respiratory Pattern Normal Blood Pressure 149/92 H Blood Pressure Mean 111 Pulse Ox 98 Oxygen Delivery Method Room Air Positive well nourished and well developed General Appearance ED: well developed and NAD HEENT Reports TM's clear and moist mucous membranes normocephalic and atraumatic; Negative for trauma or tenderness Tympanic Membrane ED: Yes TM's clear Eyes PERRL and EOMs intact bilaterally General Eye ED: Negative for pale conjunctiva or scleral icterus Neck no lymphadenopathy, supple and no JVD General: Negative for tenderness Chest Wall inspection of chest normal and palpation of chest normal Chest: Negative for tenderness Resp normal respiratory effort and clear to auscultation bilaterally Effort and Inspection: Negative for respiratory distress or pain with movement Auscultation: Negative for rhonchi, wheezes or diminished lung sounds Cardio regular rate, regular rhythm, S1 normal heart sound, S2 normal heart sound and no murmurs Peripheral Pulses: pulses 2+ throughout GI normal to inspection, nondistended, normoactive bowel sounds, soft to palpation, non-tender, non-distended and no masses Back/Spine no CVA tenderness and no thoracic nor lumbar tenderness Extremity normal to inspection General Extremety ED: Negative for edema General Extremity: Negative for edema Neuro oriented x3, CN's II-XII intact bilaterally, no sensory deficits noted and gait normal Sensorium / Orientation: awake, alert, oriented to person, oriented to place and oriented to time Motor Exam: strength 5/5 throughout and strength abnormal Psych mental status grossly normal Skin no rashes or lesions noted and no wounds MDM MDM MDM Narrative Medical decision making narrative: Patient was seen in the emergency department by buffet server on-call. I was asked to have patient admitted to hospitalist service to PCU. Patient's work-up unremarkable and hemodynamically she is stable currently. On arrival patient had pacer pads placed. Lab Data Attestation: I reviewed the patient's lab results. Labs: Laboratory Results - last 24 hr 02/05/21 02/05/21 19:59 19:59 WBC 14.1 H RBC 4.97 Hgb 14.5 Hct 44.5 MCV 89.5 MCH 29.2 MCHC 32.6 RDW Std Deviation 40.2 RDW Coeff of George 12.3 Plt Count 388 MPV 9.2 Immature Gran % (Auto) 0.400 Neut % (Auto) 78.1 H Lymph % (Auto) 15.3 L Rawlins % (Auto) 4.9 Eos % (Auto) 0.9 Baso % (Auto) 0.4 Absolute Neuts (auto) 11.0 H Absolute Lymphs (auto) 2.15 Nucleated RBC % 0 Sodium 136 Potassium 3.6 Chloride 101 Carbon Dioxide 25.0 Anion Gap 10 BUN 17 Creatinine 0.85 Estim Creat Clear Calc 56.87 Est GFR (MDRD) Af Amer 91 Est GFR (MDRD) Non-Af 75 BUN/Creatinine Ratio 20.0 Glucose 315 H Calcium 9.0 Magnesium 2.1 Troponin I High Sens 5 TSH 1.21 Radiography Chest X-Ray - ED: 1 View Diagnostic Testing: One view chest x-ray obtained interpreted by myself as no acute disease process. Official radiology report pending. EKG Initial EKG: Comments: Sinus rhythm with a ventricular rate of 75 bpm with a first- degree AV block as well as a right bundle branch block and left anterior fascicular block. Prior EKG tracings: available for review Prior: Changed Discharge Plan Triage Chief Complaint: Chest Other ED Provider: Priyanka Kidd Dx/Rx/DC Orders Clinical Impression: AV heart block Prescriptions: No Action glatiramer [Copaxone] 40 mg/mL syringe 40 mg SC .Q3DAYS RF: 0 rosuvastatin 5 mg tablet 5 mg PO DAILY Qty: 30 RF: 5 Ozempic 1 mg/dose (4 mg/3 mL) pen injector 1 mg subcut QWEEK Qty: 3 RF: 4 amlodipine 5 mg tablet 2.5 mg PO DAILY RF: 0 meloxicam [Mobic] 7.5 mg Tablet 7.5 mg PO DAILY RF: 0 gabapentin 300 mg Tablet 300 mg PO QHS RF: 0 tizanidine 4 mg Capsule 4 mg PO QHS RF: 0 Jardiance 25 mg Tablet 25 mg PO DAILY RF: 0 levothyroxine 150 mcg tablet 150 mcg PO DAILY RF: 0 cholecalciferol (vitamin D3) 1,250 mcg (50,000 unit) capsule 1,250 mcg PO .Q2WEEK RF: 0 Tresiba FlexTouch U-100 100 unit/mL (3 mL) insulin pen 28 unit SC 1500 RF: 0 hydrochlorothiazide 25 mg tablet 25 mg PO DAILY Qty: 30 RF: 3 losartan 50 mg tablet 50 mg PO BID Qty: 180 RF: 3 Primary Care Provider: Elmer Richards Referrals: Elmer Richards MD [Primary Care Provider] - Disposition Disposition: Acute Care Hospital [facility]
--- NOTE | 2021-02-05 20:08 | RAD_ITS ---
STUDY: X-RAY CHEST REASON FOR EXAM: Female, 50 years old. Palpitations TECHNIQUE: Frontal view COMPARISON: None. FINDINGS: The lungs are clear and expanded. There is no demonstrated pleural abnormality. Normal size heart. Normal mediastinum and tim. Normal visualized pulmonary arteries. Normal visualized aortic arch and descending thoracic aorta. Normal visualized thoracic spine. Normal visualized ribs, clavicles, and shoulders. There is no demonstrated abnormality of the visualized soft tissue structures of the upper abdomen. RAD/Chest 1 View (Portable) IMPRESSION: Normal x-ray examination of the chest. Electronically Signed: Girish Mora DO at 20:53 EDT Tel [phone], Service support ,
[2021-02-05 20:09] LABS: Absolute Lymphocyte Count 2.15 X10^3/uL (0.83-4.51); Basophil# 0.06 X10^3/uL; Basophil% 0.4 % (0-1); Eosinophil# 0.13 X10^3/uL; Eosinophils% 0.9 % (0-5); Hematocrit 44.5 % (37-47); Hemoglobin 14.5 g/dL (12.0-15.0); Lymphocyte # 2.15 X10^3/ul (0.83-4.51); Lymphocyte % 15.3 % (19-41); Mean Corp Hgb Conc 32.6 g/dL (32-36); Mean Corpuscular Hgb 29.2 pg (27.0-32.0); Mean Corpuscular Volume 89.5 fL (81-99); Mean Platelet Vol. 9.2 fl (6.2-12.0); Monocyte# 0.69 X10^3/uL; Monocyte% 4.9 % (0-10); NRBC Flagged by Analyzer 0 % (0-5); Neutrophil # 10.98 X10^3/uL (2.7-7.7); Neutrophil % 78.1 % (47-70); Platelet Count 388 K/mm3 (150-450); RBC Distribution Width CV 12.3 % (11.6-14.6); RBC Distribution Width SD 40.2 fl (35.1-43.9); Red Blood Count 4.97 M/mm3 (4.2-5.4); White Blood Count 14.1 K/mm3 (4.4-11.0)
--- NOTE | 2021-02-05 20:11 | CON.PCM.CA_ITS ---
Assessment & Plan Assessment/Plan (1) Obesity: QUALIFIERS: Obesity type: due to excess calories Obesity classification: adult class 3 (BMI >= 40) Serious obesity comorbidity presence: with serious comorbidity Body mass index: BMI 45.0-49.9 Qualified Code(s): E66.01 - Morbid (severe) obesity due to excess calories; Z68.42 - Body mass index [BMI] 45.0-49.9, adult (2) MUSTAFA (dyspnea on exertion): (3) Mobitz type 2 second degree AV block: (4) Coronary-myocardial bridge: (5) Essential (primary) hypertension: (6) Hyperlipidemia: QUALIFIERS: Hyperlipidemia type: mixed hyperlipidemia Qualified Code(s): E78.2 - Mixed hyperlipidemia (7) Right bundle branch block (RBBB): (8) First degree AV block: PLAN: 50-year-old female, seen and evaluated in the emergency department at [facility] Patient had symptoms of palpitation. This evening the [employer]event monitor [employer] called me And stated that patient has evidence of third-degree AV block. This patient has history of hypertension, hyperlipidemia and has a evidence of right bundle branch block and type II AV block Been patient denied any symptoms of dizziness or lightheadedness no history of syncopal episode symptoms is mainly palpitation no symptoms of chest pain She has been seen and followed by her primary medical stenographer Dr. Liu and in 07/20/2018 she had cardiac catheterization Revealed normal coronary arteries with mild myocardial bridging and preserved systolic function Cardiac recommendation plan; 1. We will get the records from the event monitor. Patient is stable clinically with EKG showing right bundle and 30 degree AV block, will admit to progressive care unit for telemetry monitoring. 2. I reviewed all her current medication will continue losartan/HCTZ and will hold calcium channel marly amlodipine 3. Primary medical stenographer Dr. Liu will resume care/for continuation of cardiac care plan and further recommendation. HPI Consult Data Date of Consult: 02/05/21 HPI Narrative Reason for Consultation: Called for abnormal event monitor/3rd degree AV block HPI Narrative: KVNG PÉREZ, is a 50 F who presents [facility] Medical History Abnormal electrocardiogram Anemia Anxiety Arthritis Back pain Cardiology follow-up encounter Cervicalgia Coronary-myocardial bridge Dietary restriction Easy bruising Essential (primary) hypertension Excessive bleeding Former smoker History of echocardiogram History of edema History of pain when walking History of stress test Hx of vertigo Hyperlipidemia Hypothyroidism Insomnia Migraine headache Mobitz type 2 second degree AV block Multiple sclerosis Multiple sclerosis Obesity Obesity Obesity Rheumatoid arthritis Right bundle branch block (RBBB) Seasonal allergies Shortness of breath on exertion Spinal stenosis Thyroid disease Type 2 diabetes mellitus Uncontrolled diabetes mellitus with microalbuminuria Vitamin D deficiency Home Medications glatiramer 40 mg/mL subcutaneous syringe 40 mg SC .Q3DAYS 06/24/18 [History Last Taken Unknown] amlodipine 5 mg tablet 2.5 mg PO DAILY tab 10/28/20 [History Last Taken Unknown] cholecalciferol (vitamin D3) 1,250 mcg PO .Q2WEEK 01/16/21 [History Last Taken Unknown] empagliflozin [Jardiance] 25 mg PO DAILY 01/16/21 [History Last Taken Unknown] gabapentin 300 mg PO QHS 01/16/21 [History Last Taken Unknown] insulin degludec [Tresiba FlexTouch U-100] 28 unit SC 1500 01/16/21 [History Last Taken Unknown] levothyroxine 150 mcg PO DAILY 01/16/21 [History Last Taken Unknown] meloxicam [Mobic] 7.5 mg PO DAILY 01/16/21 [History Last Taken Unknown] tizanidine 4 mg PO QHS 01/16/21 [History Last Taken Unknown] rosuvastatin 5 mg tablet 5 mg PO DAILY #30 tab 01/23/21 [Rx Last Taken Unknown] semaglutide 1 mg/dose (4 mg/3 mL) subcutaneous pen injector 1 mg SUBCUT QWEEK #3 ml 01/23/21 [Rx Last Taken Unknown] hydrochlorothiazide 25 mg tablet 25 mg PO DAILY #30 tab 01/31/21 [Rx Last Taken Unknown] losartan 50 mg tablet 50 mg PO BID #180 tab 01/31/21 [Rx Last Taken Unknown] Allergy/AdvReac Type Severity Reaction Status Date / Time aspirin Allergy Anaphylaxis Verified 02/05/21 19:26 codeine Allergy Anaphylaxis Verified 02/05/21 19:26 Penicillins Allergy rash Verified 02/05/21 19:26 acetaminophen [From Vicodin] AdvReac syncope Verified 02/05/21 19:26 erythromycin base AdvReac Unknown Verified 02/05/21 19:26 [From Erythrocin] hydrocodone [From Vicodin] AdvReac syncope Verified 02/05/21 19:26 ketorolac [From Toradol] AdvReac anxious Verified 02/05/21 19:26 Family History Other Adopted Surgical History H/O partial thyroidectomy History of cardiac catheterization History of carpal tunnel release History of hysterectomy History of left heart catheterization (07/30/18) History of parathyroidectomy Hx of cholecystectomy Social History Smoking Status: Former smoker quit date: 05/06/96 pack-years: 2 alcohol intake: never substance use type: does not use caffeine: Yes what type of physical activity do you participate in: walking frequency: daily ROS ROS Narrative Review of 14 point system is unremarkable apart from symptoms of palpitation Physical Exam Narrative Patient seen and evaluated at bedside in the emergency department She is comfortable lying in bed Not in acute distress media monitor normal sinus rhythm and stable hemodynamically Cardiovascular examination; S1-S2 is normal, there is no murmur no systolic or diastolic murmur No gallop rhythm or pericardial rub Chest examination; clear to auscultation bilaterally Examination lower extremity no clubbing no cyanosis no lower extremity edema Central nervous system exam no focal neurological deficit. Objective Data Vital Signs: Vital Signs Temp Pulse Resp BP Pulse Ox 96.5 F L 77 14 149/92 H 98 02/05/21 19:26 02/05/21 19:26 02/05/21 19:26 02/05/21 19:26 02/05/21 19:26 Oxygen Delivery Method Room Air Weight: 241 lb 13.553 oz Body Mass Index (BMI) 47.2 Lab / Micro Data Result Diagrams: 02/05/21 19:59 02/05/21 19:59 Cardiology Labs/Tests Rhythm: Normal sinus EKG: Right bundle branch block, first-degree AV block Cardiac Cath: Cardiac catheterization in 07/20/2018 Revealed normal coronary arteries with mild myocardial bridging and preserved LV systolic function
[2021-02-05] MEDS: 0.9% Normal Saline 1,000 ML 150 ML IV (20:14)
[2021-02-05 20:29] LABS: Anion Gap 10 (5-15); BUN 17 mg/dL (7-18); Chloride 101 mmol/L (98-107); Creatinine, Serum 0.85 mg/dL (0.55-1.02); EST Glomerular Filtration Rate 75 mL/min (>60); Est Glom Filt Rate - Afr Amer 91 mL/min (>60); Estimated Creatinine Clearance 56.87 ml/min; Glucose 315 mg/dL (74-106); Magnesium 2.1 mg/dL (1.6-2.6); Potassium 3.6 mmol/L (3.5-5.1); Sodium Level 136 mmol/L (136-145); Thyroid Stim Hormone (TSH) 1.21 uIU/mL (0.358-3.74); Troponin-I HS 5 pg/mL (3.0-54.0)
--- NOTE | 2021-02-05 20:46 | HP.PCM.HOS_ITS ---
HPI - General General Date of Admission: 02/05/21 Date of Service: 02/05/21 Chief Complaint: Heart block on event monitor HPI Narrative KVNG PÉREZ, is a 50 F with a significant history of multiple sclerosis and diabetes mellitus who was instructed come to emergency department because of heart block found on the monitor. Reportedly an event monitor was placed today (day of presentation) because of palpitations. The event monitor company called patient's and discussed with on-call cardiology. Patient was instructed by event monitor company to come to the emergency department. FOR[facility], [facility] Medical History Abnormal electrocardiogram Anemia Anxiety Arthritis Back pain Cardiology follow-up encounter Cervicalgia Coronary-myocardial bridge Dietary restriction Easy bruising Essential (primary) hypertension Excessive bleeding Former smoker History of echocardiogram History of edema History of pain when walking History of stress test Hx of vertigo Hyperlipidemia Hypothyroidism Insomnia Migraine headache Mobitz type 2 second degree AV block Multiple sclerosis Multiple sclerosis Obesity Obesity Obesity Rheumatoid arthritis Right bundle branch block (RBBB) Seasonal allergies Shortness of breath on exertion Spinal stenosis Thyroid disease Type 2 diabetes mellitus Uncontrolled diabetes mellitus with microalbuminuria Vitamin D deficiency Home Medications glatiramer 40 mg/mL subcutaneous syringe 40 mg SC .Q3DAYS 06/24/18 [History Last Taken Unknown] amlodipine 5 mg tablet 2.5 mg PO DAILY tab 10/28/20 [History Last Taken Unknown] cholecalciferol (vitamin D3) 1,250 mcg PO .Q2WEEK 01/16/21 [History Last Taken Unknown] empagliflozin [Jardiance] 25 mg PO DAILY 01/16/21 [History Last Taken Unknown] gabapentin 300 mg PO QHS 01/16/21 [History Last Taken Unknown] insulin degludec [Tresiba FlexTouch U-100] 28 unit SC 1500 01/16/21 [History Last Taken Unknown] levothyroxine 150 mcg PO DAILY 01/16/21 [History Last Taken Unknown] meloxicam [Mobic] 7.5 mg PO DAILY 01/16/21 [History Last Taken Unknown] tizanidine 4 mg PO QHS 01/16/21 [History Last Taken Unknown] rosuvastatin 5 mg tablet 5 mg PO DAILY #30 tab 01/23/21 [Rx Last Taken Unknown] semaglutide 1 mg/dose (4 mg/3 mL) subcutaneous pen injector 1 mg SUBCUT QWEEK #3 ml 01/23/21 [Rx Last Taken Unknown] hydrochlorothiazide 25 mg tablet 25 mg PO DAILY #30 tab 01/31/21 [Rx Last Taken Unknown] losartan 50 mg tablet 50 mg PO BID #180 tab 01/31/21 [Rx Last Taken Unknown] Allergy/AdvReac Type Severity Reaction Status Date / Time aspirin Allergy Anaphylaxis Verified 02/05/21 19:26 codeine Allergy Anaphylaxis Verified 02/05/21 19:26 Penicillins Allergy rash Verified 02/05/21 19:26 acetaminophen [From Vicodin] AdvReac syncope Verified 02/05/21 19:26 erythromycin base AdvReac Unknown Verified 02/05/21 19:26 [From Erythrocin] hydrocodone [From Vicodin] AdvReac syncope Verified 02/05/21 19:26 ketorolac [From Toradol] AdvReac anxious Verified 02/05/21 19:26 Family History Other Adopted Surgical History H/O partial thyroidectomy History of cardiac catheterization History of carpal tunnel release History of hysterectomy History of left heart catheterization (07/30/18) History of parathyroidectomy Hx of cholecystectomy Social History adopted: Yes household members: spouse and children current occupational status: employed 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 [employer] Smoking Status: Former smoker quit date: 05/06/96 pack-years: 2 alcohol intake: never substance use type: does not use caffeine: Yes what type of physical activity do you participate in: walking frequency: daily ROS ROS Narrative Constitutional: Denies fever, chills, anorexia and change in weight Eyes: Denies blurry vision, change in eye color, change in vision, discharge from eye(s), double vision, erythema, eye pain, loss of vision or other HEENT: Denies abnormal hearing, dysphagia, ear pain, epistaxis, headache(s), hearing loss, nasal congestion, nasal discharge, post nasal drip, sinus pressure, sore throat or other Cardiovascular: Reports palpitations. Reports lightheadedness. Denies chest pain. Respiratory/Chest: Reports shortness of breath. Denies cough. Gastrointestinal: Denies abdominal pain, coffee ground emesis, constipation, diarrhea, dyspepsia, hematemesis, hematochezia, loose stools, melena, nausea, vomiting or other Genitourinary: Denies burning urination, difficulty urinating, dysuria, hematuria, nocturia, urinary frequency, urinary hesitancy, urinary incontinence, urinary urgency or other Musculoskeletal: Denies arthralgias, back pain, joint pain, joint stiffness, joint swelling, myalgias, neck pain or other Neurologic: Denies abnormal gait, abnormal speech, confusion, disequilibrium, dizziness, focal weakness, headache(s), numbness, paresthesias, seizure-like activity, seizures, syncope, tingling, tremor(s) or other Psychiatric: Denies anxiety, depression, homicidal ideation, suicidal ideation or other Endocrinology: Denies change in body appearance, cold intolerance, excessive sweating, heat intolerance, polydipsia, polyuria or other Hematologic/Lymphatic: Denies anemia, easy bleeding, easy bruising, lymphadenopathy or other Integumentary: Denies rashes Allergic/Immunologic: Denies rhinitis, hives, eczema, asthma or other Vital Signs Vital Signs Vital Signs: 02/05/21 19:26 02/05/21 19:44 Temperature 96.5 F L Temperature Source Temporal Pulse Rate 77 Respiratory Rate 14 Respiratory Effort Normal Non-Labored Respiratory Pattern Normal Blood Pressure 149/92 H Blood Pressure Mean 111 Pulse Ox 98 Oxygen Delivery Method Room Air Weight Weight: 109.7 kg Body Mass Index (BMI) 47.2 Physical Exam Narrative Physical exam: General: Well-nourished, well-developed. Head: Normocephalic, atraumatic, no tenderness Eyes: PERRLA, EOMI ENT, no trauma, moist mucous membranes, no rhinorrhea Neck: Nontender, full range of motion, no spinal tenderness, deformities, step- off CVS: Regular rate and rhythm. S1-S2 present. No murmur, gallop or rub. Respiratory : clear to auscultation bilaterally, chest wall nontender, no wheezing Abdomen: Soft, nontender, nondistended, normal bowel sounds, no masses : Deferred Back: Nontender, no CVA tenderness, no midline spinal tenderness, deformities, step-offs Extremities: Nontender full range of motion, no trauma Skin: Normal color, no trauma, abrasions Neuro: Alert, oriented, cranial nerves II through XII grossly intact. Psychiatry: Normal mood. Normal affect. Not depressed. Not anxious. Results Lab / Micro Data Result Diagrams: 02/05/21 19:59 02/05/21 19:59 Labs: Laboratory Results - last 24 hr 02/05/21 19:59: WBC 14.1 H, RBC 4.97, Hgb 14.5, Hct 44.5, MCV 89.5, MCH 29.2, MCHC 32.6, RDW Std Deviation 40.2, RDW Coeff of George 12.3, Plt Count 388, MPV 9.2, Immature Gran % (Auto) 0.400, Neut % (Auto) 78.1 H, Lymph % (Auto) 15.3 L, [place] % (Auto) 4.9, Eos % (Auto) 0.9, Baso % (Auto) 0.4, Absolute Neuts (auto) 11.0 H, Absolute Lymphs (auto) 2.15, Nucleated RBC % 0 02/05/21 19:59: Sodium 136, Potassium 3.6, Chloride 101, Carbon Dioxide 25.0, Anion Gap 10, BUN 17, Creatinine 0.85, Estim Creat Clear Calc 56.87, Est GFR (MDRD) Af Amer 91, Est GFR (MDRD) Non-Af 75, BUN/Creatinine Ratio 20.0, Glucose 315 H, Calcium 9.0, Magnesium 2.1, Troponin I High Sens 5, TSH 1.21 Assessment & Plan Assessment/Plan (1) AV heart block: (2) Obesity: QUALIFIERS: Body mass index: BMI 45.0-49.9 Obesity classification: adult class 3 (BMI >= 40) Obesity type: due to excess calories Serious obesity comorbidity presence: with serious comorbidity Qualified Code(s): E66.01 - Morbid (severe) obesity due to excess calories; Z68.42 - Body mass index [BMI] 45.0-49.9, adult PLAN: Complete heart block Telemetry strip from event monitor was reviewed. It showed complete heart block. And with ventricular rate of 42.9. EKG at the emergency department showed sinus rhythm with first-degree AV block; right bundle branch block; left anterior fascicular block. Observe at progressive care unit on telemetry. Actual chest x-ray image was independently interpreted and I agree radiologist interpretation above. Replace potassium. Magnesium is normal. Discussed case with cardiology. Cardiology consult. N.p.o. after midnight for possible pacemaker placement. Hold home NSAIDs at this time. Neutrophilic leukocytosis White count of 14.1 with neutrophilia and lymphopenia. Likely reactive. Trend. Obesity BMI: 45.4. Complicates care. Lifestyle modification recommended. Diabetes mellitus Patient with hyperglycemia on presentation Basal insulin continued. On semaglutide which she has been taking for the past 2 weeks. The Jardiance continue Accu-Chek QA [facility] with correction scale insulin ordered. Hypertension Blood pressure is not within goal Hydrochlorthiazide and losartan continued. Trend blood pressure and adjust blood pressure medications. Multiple sclerosis Glatiramer continued. Tizanidine continued. DVT prophylaxis Subcutaneous Lovenox ordered. Charges/Coding Multi Select Codes Visit Charges Observation E&M Codin Initial observation care L2
[2021-02-05 21:17] VITALS: PULSE 67; RESP 18; O2SAT 96
[2021-02-05 22:19] VITALS: BP 139/76; PULSE 60; RESP 17; TEMP 36.5; O2SAT 96
[2021-02-05 23:20] VITALS: BP 154/88; PULSE 56; RESP 18; TEMP 36.3; O2SAT 98
[2021-02-05 23:22] VITALS: BMI 45.4
--- NOTE | 2021-02-05 23:23 | PCS.PANDOC ---
PANDEMIC DOCUMENTATION INITIATED: Date: 12/19/2020 Time: 190
[2021-02-05 23:28] VITALS: PULSE 61
[2021-02-05] MEDS: 0.9% Saline Lock 10 ML Syringe IV (23:41)
[2021-02-06] VITALS (17 sets, daily range): BP systolic 119–153; BP diastolic 73–87; PULSE 59–72; RESP 18–20; TEMP 36.2–36.8; O2SAT 94–97
[2021-02-06 00:06] LABS: Bedside Glucose 156 mg/dL (70-110)
[2021-02-06] MEDS: Potassium Chloride Oral Tablet 20 MEQ 40 MEQ PO (00:18)
[2021-02-06] MEDS: tiZANidine HCl 2 MG Tablet 4 MG PO ×2 (00:53→22:14)
[2021-02-06 04:31] LABS: Bedside Glucose 123 mg/dL (70-110)
[2021-02-06] MEDS: Levothyroxine 150 MCG Tablet PO (06:05)
[2021-02-06 06:16] LABS: Bedside Glucose 97 mg/dL (70-110)
[2021-02-06 06:52] LABS: Absolute Lymphocyte Count 2.72 X10^3/uL (0.83-4.51); Absolute Neutrophil Count 9.2 X10^3/uL (2.0-7.7); Basophil# 0.06 X10^3/uL; Basophil% 0.5 % (0-1); Eosinophil# 0.17 X10^3/uL; Eosinophils% 1.3 % (0-5); Hematocrit 43.4 % (37-47); Hemoglobin 13.9 g/dL (12.0-15.0); Lymphocyte # 2.72 X10^3/ul (0.83-4.51); Lymphocyte % 21.1 % (19-41); Mean Corpuscular Hgb 29.1 pg (27.0-32.0); Mean Platelet Vol. 9.5 fl (6.2-12.0); Monocyte# 0.71 X10^3/uL; Monocyte% 5.5 % (0-10); NRBC Flagged by Analyzer 0 % (0-5); Neutrophil # 9.18 X10^3/uL (2.7-7.7); Neutrophil % 71.1 % (47-70); Platelet Count 385 K/mm3 (150-450); RBC Distribution Width CV 12.2 % (11.6-14.6); RBC Distribution Width SD 40.9 fl (35.1-43.9); Red Blood Count 4.77 M/mm3 (4.2-5.4); White Blood Count 12.9 K/mm3 (4.4-11.0)
[2021-02-06] MEDS: 0.9% Normal Saline 1,000 ML 100 ML IV ×2 (09:00→19:37)
[2021-02-06 11:10] LABS: Bedside Glucose 89 mg/dL (70-110)
--- NOTE | 2021-02-06 12:48 | PCM.PN.CARD ---
Subjective Subjective Seen and evaluated. Underwent permanent pacemaker implantation. Objective Data Vital Signs: Vital Signs Temp Pulse Resp BP Pulse Ox 97.8 F 71 18 153/79 H 97 02/06/21 10:47 02/06/21 10:47 02/06/21 10:47 02/06/21 10:47 02/06/21 10:47 Oxygen Delivery Method Room Air Weight: 240 lb 8.389 oz Body Mass Index (BMI) 45.4 Intake & Output: Intake and Output for Last 24 Hours 02/04/21 02/05/21 02/06/21 23:59 23:59 23:59 Intake Total 1025 / 1025 Balance 1025 / 1025 Lab / Micro Data Result Diagrams: 02/06/21 06:10 02/05/21 19:59 Labs: Laboratory Results - last 24 hr 02/05/21 19:59: WBC 14.1 H, RBC 4.97, Hgb 14.5, Hct 44.5, MCV 89.5, MCH 29.2, MCHC 32.6, RDW Std Deviation 40.2, RDW Coeff of George 12.3, Plt Count 388, MPV 9.2, Immature Gran % (Auto) 0.400, Neut % (Auto) 78.1 H, Lymph % (Auto) 15.3 L, [place] % (Auto) 4.9, Eos % (Auto) 0.9, Baso % (Auto) 0.4, Absolute Neuts (auto) 11.0 H, Absolute Lymphs (auto) 2.15, Nucleated RBC % 0 02/05/21 19:59: Sodium 136, Potassium 3.6, Chloride 101, Carbon Dioxide 25.0, Anion Gap 10, BUN 17, Creatinine 0.85, Estim Creat Clear Calc 56.87, Est GFR (MDRD) Af Amer 91, Est GFR (MDRD) Non-Af 75, BUN/Creatinine Ratio 20.0, Glucose 315 H, Calcium 9.0, Magnesium 2.1, Troponin I High Sens 5, TSH 1.21 02/05/21 23:54: POC Glucose 156 H 02/06/21 04:23: POC Glucose 123 H 02/06/21 06:08: POC Glucose 97 02/06/21 06:10: WBC 12.9 H, RBC 4.77, Hgb 13.9, Hct 43.4, MCV 91.0, MCH 29.1, MCHC 32.0, RDW Std Deviation 40.9, RDW Coeff of George 12.2, Plt Count 385, MPV 9.5, Immature Gran % (Auto) 0.500, Neut % (Auto) 71.1 H, Lymph % (Auto) 21.1, [place] % (Auto) 5.5, Eos % (Auto) 1.3, Baso % (Auto) 0.5, Absolute Neuts (auto) 9.2 H, Absolute Lymphs (auto) 2.72, Nucleated RBC % 0 02/06/21 10:43: POC Glucose 89 Cardiology Labs/Tests 02/05/21 19:59: WBC 14.1 H, RBC 4.97, Hgb 14.5, Hct 44.5, MCV 89.5, MCH 29.2, MCHC 32.6, Plt Count 388, MPV 9.2, Immature Gran % (Auto) 0.400, Neut % (Auto) 78.1 H, Lymph % (Auto) 15.3 L, [place] % (Auto) 4.9, Eos % (Auto) 0.9, Baso % (Auto) 0.4, Absolute Neuts (auto) 11.0 H, Nucleated RBC % 0 02/05/21 19:59: Sodium 136, Potassium 3.6, Chloride 101, Carbon Dioxide 25.0, Anion Gap 10, BUN 17, Creatinine 0.85, Est GFR (MDRD) Af Amer 91, Est GFR (MDRD) Non-Af 75, BUN/Creatinine Ratio 20.0, Glucose 315 H, Calcium 9.0, Magnesium 2.1 02/06/21 06:10: WBC 12.9 H, RBC 4.77, Hgb 13.9, Hct 43.4, MCV 91.0, MCH 29.1, MCHC 32.0, Plt Count 385, MPV 9.5, Immature Gran % (Auto) 0.500, Neut % (Auto) 71.1 H, Lymph % (Auto) 21.1, [place] % (Auto) 5.5, Eos % (Auto) 1.3, Baso % (Auto) 0.5, Absolute Neuts (auto) 9.2 H, Nucleated RBC % 0 Rhythm: EKG: ECHO: Stress Test: Cardiac Cath: PCI: CT Surgery: Holter monitor: EPS: PPM: CXR: Chest CT Scan: Radiography Diagnostic Testing: Radiology Impression Chest X-Ray 02/05/21 20:08 IMPRESSION: Normal x-ray examination of the chest. Electronically Signed: Girish Mora DO at 20:53 EDT Tel [phone], Service support , Physical Exam Const alert, oriented x3 and no apparent distress General Appearance: cooperative HEENT hearing grossly normal bilaterally Head and Scalp: atraumatic Eyes EOMs intact bilaterally Neck General: normal visual inspection Chest inspection of chest normal and palpation of chest normal Resp normal respiratory effort Auscultation: clear to auscultation bilaterally Cardio regular rate, regular rhythm, S1 normal heart sound and S2 normal heart sound Jugular Venous Distention: JVD GI normal to inspection, nondistended, normoactive bowel sounds Extremity normal capillary refill and no pedal edema Peripheral Pulses: Yes pulses 2+ throughout and femoral pulses present Skin no rashes or lesions noted Neuro oriented x3 and CN's II-XII intact bilaterally Psych Appearance: grossly normal and appropriate Assessment & Plan Assessment/Plan (1) Complete heart block by electrocardiogram: PLAN: Patient underwent permanent pacemaker implantation successfully. The plan will be to watch her overnight and recheck her pacing parameters. If the above appear to be normal then patient will be discharged for outpatient follow-up. (2) Essential (primary) hypertension: PLAN: Her blood pressure is under good control. We will resume her antihypertensive medications. Thank you for allowing me to participate in the care of your patient. Please don't hesitate to call if any issues arise.
--- NOTE | 2021-02-06 12:49 | CL.IE_ITS ---
Patient: KVNG PÉREZ Study Date: 02/06/2021 Performing: Michael Liu MD : 1970 Age: 50 Gender: female PROCEDURES PERFORMED TI95-EIEBYPR PACER INSERT+DUAL LEADS INDICATIONS Atrioventricular (AV) block PROCEDURE DETAILS The patient was brought to the Catheterization Lab in the postabsorptive nonsedated state. Infor med consent was obtained prior to the procedure. Local anesthetic was given subcutaneously to the le ft upper chest area with Lidocaine 2%. Access was achieved and a guidewire was advanced into the left subclavian vein. Incision was made to the left upper chest. PPM ventricular lead was inserted / posi tioned to right ventricular apex. PPM ventricular lead testing performed. PPM ventricular lead testin g performed. The sheath was then removed. PPM atrial lead was inserted / positioned to the right atri al appendage. PPM atrial lead testing performed. The Atrial lead sutured in place with 2-0 Silk. The Ventricular PM lead sutured in place with 2-0 Silk. Device pocket was irrigated with antibiotic. PPM generator was attached to the lead(s) and inserted into the pocket. Subcutaneous closure was complete d with 3-0 Vicryl. Skin closure was completed with 4-0 Vicryl. Steri-strips applied to left subclavicular incision. The patient tolerated the procedure well. Estimated Blood Loss: 10 ml's IMPLANTED / EX-PLANTED DEVICES IMPLANTED DEVICE(S): PPM Generator - Roadway Technician: [employer], Model #L111 Paulo TAJ PADRON, Serial # [id number] Atrial lead - Roadway Technician: [employer], Model # 7840 [employer] , Serial # [id number] Ventricular lead - Roadway Technician: [employer], Model # 7841 [employer] , Serial # [id number] DEVICE PARAMETERS ATRIAL LEAD PARAMETERS: P wave- 8.7 (mV) Current- 0.7 (mA) threshold- 0.5 (V) impedence- 782 (OHMS) VENTRICULAR LEAD PARAMETERS: R wave- 9.0 (mV) Current- 2.0 (mA) threshold- 1.4 (V) impedence- 734 (OHMS) DEVICE PARAMETERS: Mode- DDD Lower rate- 60 Upper rate- 130 CONCLUSIONS / RECOMMENDATIONS Device Conclusions: Successful implantation of a dual chamber pacemaker Device Recommendations: Follow up with Primary Care Physician PROCEDURE MEDICATIONS Fentanyl 50 mcg IV Versed 1 mg IV Versed 1 mg IV Fentanyl 25 mcg IV Oxygen: 2 L/min via nasal cannula Antibiotic given in appropriate timeframe. Clindamycin 900 mg IV 02/06/2021 11:14:16 Signed By Michael Liu MD On 02/06/2021 12:48:33 Michael Liu MD
--- NOTE | 2021-02-06 13:29 | PN.HOSP_ITS ---
Subjective Subjective Patient seen and examined. She felt anxious about the upcoming pacemaker procedure. She denied any lightheadedness, dizziness, chest pain, palpitations, nausea or vomiting. Review of systems was otherwise negative. Objective Data Objective Data Vital Signs: Vital Signs Temp Pulse Resp BP Pulse Ox 97.3 F L 72 18 140/81 H 94 02/06/21 13:22 02/06/21 13:27 02/06/21 13:22 02/06/21 13:22 02/06/21 13:22 Oxygen Delivery Method Room Air Weight: 240 lb 8.389 oz Body Mass Index (BMI) 45.4 Intake & Output: Intake and Output for Last 24 Hours 02/04/21 02/05/21 02/06/21 23:59 23:59 23:59 Intake Total 1025 / 1025 Balance 1025 / 1025 Lab / Micro Data Result Diagrams: 02/06/21 06:10 02/05/21 19:59 Labs: Laboratory Results - last 24 hr 02/05/21 19:59: WBC 14.1 H, RBC 4.97, Hgb 14.5, Hct 44.5, MCV 89.5, MCH 29.2, MCHC 32.6, RDW Std Deviation 40.2, RDW Coeff of George 12.3, Plt Count 388, MPV 9.2, Immature Gran % (Auto) 0.400, Neut % (Auto) 78.1 H, Lymph % (Auto) 15.3 L, [place] % (Auto) 4.9, Eos % (Auto) 0.9, Baso % (Auto) 0.4, Absolute Neuts (auto) 1 1.0 H, Absolute Lymphs (auto) 2.15, Nucleated RBC % 0 02/05/21 19:59: Sodium 136, Potassium 3.6, Chloride 101, Carbon Dioxide 25.0, Anion Gap 10, BUN 17, Creatinine 0.85, Estim Creat Clear Calc 56.87, Est GFR (MDRD) Af Amer 91, Est GFR (MDRD) Non-Af 75, BUN/Creatinine Ratio 20.0, Glucose 315 H, Calcium 9.0, Magnesium 2.1, Troponin I High Sens 5, TSH 1.21 02/05/21 23:54: POC Glucose 156 H 02/06/21 04:23: POC Glucose 123 H 02/06/21 06:08: POC Glucose 97 02/06/21 06:10: WBC 12.9 H, RBC 4.77, Hgb 13.9, Hct 43.4, MCV 91.0, MCH 29.1, MCHC 32.0, RDW Std Deviation 40.9, RDW Coeff of George 12.2, Plt Count 385, MPV 9.5, Immature Gran % (Auto) 0.500, Neut % (Auto) 71.1 H, Lymph % (Auto) 21.1, [place] % (Auto) 5.5, Eos % (Auto) 1.3, Baso % (Auto) 0.5, Absolute Neuts (auto) 9.2 H, Absolute Lymphs (auto) 2.72, Nucleated RBC % 0 02/06/21 10:43: POC Glucose 89 Radiography Diagnostic Testing: Radiology Impression Chest X-Ray 02/05/21 20:08 IMPRESSION: Normal x-ray examination of the chest. Electronically Signed: Girish Mora DO at 20:53 EDT Tel [phone], Service support , Physical Exam Const alert, oriented x3 and no apparent distress Exam Limitations: no limitations HEENT head/scalp atraumatic, moist oral mucous membranes and oropharynx normal Head and Scalp: normocephalic Eyes PERRL, EOMs intact bilaterally and conjunctivae normal Neck no lymphadenopathy Resp normal respiratory effort, no retractions, no use of accessory muscles and clear to auscultation bilaterally Cardio regular rate, regular rhythm, S1 normal heart sound, S2 normal heart sound and no gallops GI normal to inspection, nondistended, normoactive bowel sounds, soft to palpation, non-tender and non-distended Extremity normal to inspection, full ROM and no clubbing, cyanosis or edema Peripheral Pulses: Yes pulses 2+ throughout Skin no rashes or lesions noted Neuro oriented x3, CN's II-XII intact bilaterally and moves all extremities Sensorium / Orientation: awake and alert Psych Mood & Affect: anxious Assessment & Plan Assessment/Plan (1) Complete heart block by electrocardiogram: (2) AV heart block: PLAN: #Heart block * she was reported as having complete heart block per event montor, however per cardiology notes, it seems she has a second degree heart block * cardiology on board * for pacemaker insertion today * #Type 2 diabetes mellitus * on semaglutide, jardiance and insulin lantus * ISS. Accuchecks ACHS * #Hypertension: On losartan and hydrochlorothiazide #Multiple sclerosis: On glatiramer acetate and tizanidine. DVT prophylaxis: Lovenox Charges/Coding Visit Charges Inpatient E&M: 56059 Subs Hosp L2
--- NOTE | 2021-02-06 14:13 | CHAPLAIN ---
Type of Pastoral Visit _x__ Initial Visit ___ Follow-up Visit ___ On-call Visit ___ General Patient Visit ___ Spiritual Assessment ___ Family Conference ___ Bereavement ___ Rapid Response ___ Code Blue ___ Other (describe below) Pastoral Care Referral From _x__ Patient ___ Family ___ Nurse ___ Physician ___ Machine Chocolate Molder ___ Manager Floral ___ Other (describe below) Sacrament/Intervention _x__ Active listening ___ Anointing ___ Taoism ___ Bereavement ___ Communion ___ Aditi exploration ___ _x__ Life review _x__ Prayer ___ Reconciliation ___ Sacrament of Sick _x__ Supportive presence ___ Wedding ___ Other (describe below) Pastoral Comments patient recognized this custom applicator from a previous meeting and was seeking spiritual care support for this time; spouse is with pt; today is anniversary for couple; pt also asks prayer for family member; no other concerns
[2021-02-06 15:08] LABS: M R Staph aureus DNA By PCR Negative (Negative); Probe Check PASS; Specimen Processing Control PASS
[2021-02-06 18:06] LABS: Bedside Glucose 142 mg/dL (70-110)
[2021-02-06] MEDS: Acetaminophen 325 MG Tablet 650 MG PO (18:14)
[2021-02-06] MEDS: Losartan Potassium 50 MG Tablet PO (22:14)
[2021-02-06] MEDS: Atorvastatin Calcium 10 MG Tablet PO (22:14)
[2021-02-06 22:30] LABS: Bedside Glucose 132 mg/dL (70-110)
[2021-02-07] MEDS: Acetaminophen 325 MG Tablet 650 MG PO ×3 (00:17→11:34)
[2021-02-07 03:00] VITALS: PULSE 63
[2021-02-07 03:33] VITALS: BP 152/79; PULSE 65; RESP 18; TEMP 36.3; O2SAT 98
--- NOTE | 2021-02-07 04:58 | EKG12_ITS ---
Test Reason : AM EKG Blood Pressure : / mmHG Vent. Rate : 060 BPM Atrial Rate : 060 BPM P-R Int : 232 ms QRS Dur : 146 ms QT Int : 456 ms P-R-T Axes : 049 -55 042 degrees QTc Int : 456 ms Sinus rhythm with 1st degree A-V block with Fusion complexes Right bundle branch block Left anterior fascicular block Bifascicular block Abnormal ECG When compared with ECG of 05-FEB-2021 19:43, MANUAL COMPARISON REQUIRED, DATA IS UNCONFIRMED Confirmed by LAUREN MCLAIN, NURIS ([id number]), multimedia editor MAE STILL ([id number]) on 02/13/2021 12:51:26 PM Referred By: Omid Dubois Confirmed By:NIK AGUILAR MD
--- NOTE | 2021-02-07 05:55 | RAD_ITS ---
EXAM: XR CHEST, 3 VIEWS CLINICAL INDICATION: Post permanant ICD/Pacemaker -- inspiration/expiration. Arms Down. Wet read to MD Post permanant ICD/Pacemaker -- inspiration/expiration. Arms Down. Wet read to MD TECHNIQUE: Frontal, lateral and one additional view of the chest. This report was created using [employer] report [employer] technology. COMPARISON: 02/05/2021. FINDINGS: LUNGS AND PLEURAL SPACES: Unremarkable. No consolidation or edema. No pneumothorax. No effusion. HEART: Unremarkable. Cardiac silhouette not enlarged. MEDIASTINUM: Central airways and mediastinal contour are unremarkable. BONES/JOINTS: Unremarkable. SOFT TISSUES: Unremarkable. TUBES, LINES AND DEVICES: There is an atrial ventricular pacemaker, which has been inserted via left subclavian approach. Wires appear to be intact. RAD/Chest 3 View IMPRESSION: 1. Atrial ventricular pacemaker. 2. No evidence for acute cardiopulmonary pathology. Electronically Signed: Kris James MD at 6:32 EDT , Service support ,
[2021-02-07] MEDS: Levothyroxine 150 MCG Tablet PO (06:36)
[2021-02-07] MEDS: 0.9% Normal Saline 1,000 ML 100 ML IV (06:36)
[2021-02-07 06:55] LABS: Bedside Glucose 131 mg/dL (70-110)
[2021-02-07 07:08] LABS: Absolute Lymphocyte Count 2.15 X10^3/uL (0.83-4.51); Basophil# 0.05 X10^3/uL; Basophil% 0.5 % (0-1); Eosinophil# 0.13 X10^3/uL; Eosinophils% 1.3 % (0-5); Hematocrit 43.1 % (37-47); Hemoglobin 13.8 g/dL (12.0-15.0); Lymphocyte # 2.15 X10^3/ul (0.83-4.51); Lymphocyte % 21.8 % (19-41); Mean Corpuscular Hgb 29.4 pg (27.0-32.0); Mean Corpuscular Volume 91.7 fL (81-99); Mean Platelet Vol. 9.4 fl (6.2-12.0); Monocyte# 0.51 X10^3/uL; Monocyte% 5.2 % (0-10); NRBC Flagged by Analyzer 0 % (0-5); Neutrophil # 6.96 X10^3/uL (2.7-7.7); Neutrophil % 70.8 % (47-70); Platelet Count 342 K/mm3 (150-450); RBC Distribution Width CV 12.4 % (11.6-14.6); RBC Distribution Width SD 41.6 fl (35.1-43.9); White Blood Count 9.8 K/mm3 (4.4-11.0)
[2021-02-07 07:50] LABS: Anion Gap 9 (5-15); BUN 12 mg/dL (7-18); BUN/Creat Ratio 22.6 RATIO (10-20); Calcium,Total 8.3 mg/dL (8.5-10.1); Chloride 106 mmol/L (98-107); Creatinine, Serum 0.53 mg/dL (0.55-1.02); EST Glomerular Filtration Rate 129 mL/min (>60); Est Glom Filt Rate - Afr Amer 156 mL/min (>60); Estimated Creatinine Clearance 95.83 ml/min; Glucose 119 mg/dL (74-106); Sodium Level 139 mmol/L (136-145)
[2021-02-07 08:15] VITALS: O2SAT 98
[2021-02-07 08:18] VITALS: BP 171/94; PULSE 61; RESP 14; TEMP 36.9; O2SAT 96
[2021-02-07] MEDS: amLODIPine 2.5 MG Tablet PO (08:24)
[2021-02-07] MEDS: hydroCHLOROthiazide 25 MG Tablet PO (08:24)
[2021-02-07] MEDS: Empagliflozin 25 MG Tablet PO (08:24)
[2021-02-07] MEDS: Losartan Potassium 50 MG Tablet PO (08:24)
--- NOTE | 2021-02-07 08:33 | PN.CARD_ITS ---
Subjective Subjective Patient seen and evaluated. Appears to be doing well. Objective Data Vital Signs: Vital Signs Temp Pulse Resp BP Pulse Ox 98.5 F 61 14 171/94 H 96 02/07/21 08:18 02/07/21 08:18 02/07/21 08:18 02/07/21 08:18 02/07/21 08:18 Oxygen Delivery Method Room Air Weight: 240 lb 8.389 oz Body Mass Index (BMI) 45.4 Intake & Output: Intake and Output for Last 24 Hours 02/05/21 02/06/21 02/07/21 23:59 23:59 23:59 Intake Total 2024 1000 / 1000 Output Total 900 / 900 Balance 2024 100 / 100 Lab / Micro Data Result Diagrams: 02/07/21 05:55 02/07/21 05:55 Labs: Laboratory Results - last 24 hr 02/06/21 08:44: MRSA (PCR) Negative 02/06/21 10:43: POC Glucose 89 02/06/21 16:41: POC Glucose 142 H 02/06/21 22:11: POC Glucose 132 H 02/07/21 05:55: WBC 9.8, RBC 4.70, Hgb 13.8, Hct 43.1, MCV 91.7, MCH 29.4, MCHC 32.0, RDW Std Deviation 41.6, RDW Coeff of George 12.4, Plt Count 342, MPV 9.4, Immature Gran % (Auto) 0.400, Neut % (Auto) 70.8 H, Lymph % (Auto) 21.8, [place] % (Auto) 5.2, Eos % (Auto) 1.3, Baso % (Auto) 0.5, Absolute Neuts (auto) 7.0, Absolute Lymphs (auto) 2.15, Nucleated RBC % 0 02/07/21 05:55: Sodium 139, Potassium 4.0, Chloride 106, Carbon Dioxide 24.0, Anion Gap 9, BUN 12, Creatinine 0.53 L, Estim Creat Clear Calc 95.83, Est GFR (MDRD) Af Amer 156, Est GFR (MDRD) Non-Af 129, BUN/Creatinine Ratio 22.6 H, Glucose 119 H, Calcium 8.3 L 02/07/21 06:34: POC Glucose 131 H Cardiology Labs/Tests 02/07/21 05:55: WBC 9.8, RBC 4.70, Hgb 13.8, Hct 43.1, MCV 91.7, MCH 29.4, MCHC 32.0, Plt Count 342, MPV 9.4, Immature Gran % (Auto) 0.400, Neut % (Auto) 70.8 H , Lymph % (Auto) 21.8, [place] % (Auto) 5.2, Eos % (Auto) 1.3, Baso % (Auto) 0.5, Absolute Neuts (auto) 7.0, Nucleated RBC % 0 02/07/21 05:55: Sodium 139, Potassium 4.0, Chloride 106, Carbon Dioxide 24.0, Anion Gap 9, BUN 12, Creatinine 0.53 L, Est GFR (MDRD) Af Amer 156, Est GFR (MDRD) Non-Af 129, BUN/Creatinine Ratio 22.6 H, Glucose 119 H, Calcium 8.3 L Rhythm: EKG: ECHO: Stress Test: Cardiac Cath: PCI: CT Surgery: Holter monitor: EPS: PPM: CXR: Chest CT Scan: Radiography Diagnostic Testing: Radiology Impression Chest X-Ray 02/07/21 05:55 IMPRESSION: 1. Atrial ventricular pacemaker. 2. No evidence for acute cardiopulmonary pathology. Electronically Signed: Kris James MD at 6:32 EDT , Service support , Physical Exam Const alert, oriented x3 and no apparent distress General Appearance: cooperative HEENT hearing grossly normal bilaterally Head and Scalp: atraumatic Eyes EOMs intact bilaterally Neck General: normal visual inspection Chest inspection of chest normal and palpation of chest normal Resp normal respiratory effort Auscultation: clear to auscultation bilaterally Cardio regular rate, regular rhythm, S1 normal heart sound and S2 normal heart sound Jugular Venous Distention: JVD GI normal to inspection, nondistended, normoactive bowel sounds Extremity normal capillary refill and no pedal edema Peripheral Pulses: Yes pulses 2+ throughout and femoral pulses present Skin no rashes or lesions noted Neuro oriented x3 and CN's II-XII intact bilaterally Psych Appearance: grossly normal and appropriate Assessment & Plan Assessment/Plan (1) Mobitz type 2 second degree AV block: PLAN: Patient has intermittent Mobitz type II second-degree AV block which is symptomatic. Underwent permanent pacemaker implantation yesterday. No pneumothorax noted and pacemaker numbers appear to be stable. Will be discharged for outpatient follow-up.
--- NOTE | 2021-02-07 08:35 | PCM.DC ---
Discharge Instructions Diet Discharge Diet: No restrictions (as you feel able. No excessive stretching. No lifting your arm over your head (keep elbow below shoulder level) until seen for your pacemaker check. Do not lift your elbow away from your side until you are seen for your first visit. Keep the arm sling on if it helps remind you not to lift your arm.) Activity Additional Activity Instructions:: May shower or bathe on []. Do not scrub the incision or soak in the tub. Just wash with soap and let the water run over the incision. Gently pat dry with towel. Medications: Take your pain medication as directed. Refer to your discharge instruction sheet for a list of medications you are to take. Dressing / Incision Call your doctor if your incision/area has: Continuous Slow Oozing, Sudden Increased Bleeding, Increased Pain/ Swelling, Increased Redness, Foul Smelling Discharge and Swelling at the incision site Call your doctor if you observe: Fever of 101 or Higher, Shortness of breath, Dizziness, Fainting spells, Swelling in the ankles, Chest pain, Prolonged hiccupping and Increased palpitations (irregular heartbeat) Additional Dressing/Incision Instructions:: When dressing is removed, wash and dry incision. Keep covered with a light bandage if it is rubbing against your clothing. Do not cover the incision with an airtight bandage. Change the bandage daily. Do not remove steri strips. The strips will fall off on their own. Follow Up Care Please Follow Up With: Michael Liu MD When: Call [phone] for follow up. Follow-up in [facility]acer clinic on February 14 at 11 AM Test Results: Test results from this visit will be discussed in further detail at your follow-up appointment, if applicable. Discharge Plan Admission Admit Date/Time: 02/05/21 20:53 Attending Provider: Yissel Bauer Primary Care Provider: Elmer Richards Consulting Providers: Omid Dubois Discharge Orders/Prescriptions Prescriptions: No Action glatiramer [Copaxone] 40 mg/mL syringe 40 mg SC .Q3DAYS RF: 0 rosuvastatin 5 mg tablet 5 mg PO DAILY Qty: 30 RF: 5 Ozempic 1 mg/dose (4 mg/3 mL) pen injector 1 mg subcut QWEEK Qty: 3 RF: 4 amlodipine 5 mg tablet 2.5 mg PO DAILY RF: 0 meloxicam [Mobic] 7.5 mg Tablet 7.5 mg PO DAILY RF: 0 gabapentin 300 mg Tablet 300 mg PO QHS RF: 0 tizanidine 4 mg Capsule 4 mg PO QHS RF: 0 Jardiance 25 mg Tablet 25 mg PO DAILY RF: 0 levothyroxine 150 mcg tablet 150 mcg PO DAILY RF: 0 cholecalciferol (vitamin D3) 1,250 mcg (50,000 unit) capsule 1,250 mcg PO .Q2WEEK RF: 0 Tresiba FlexTouch U-100 100 unit/mL (3 mL) insulin pen 28 unit SC 1500 RF: 0 hydrochlorothiazide 25 mg tablet 25 mg PO DAILY Qty: 30 RF: 3 losartan 50 mg tablet 50 mg PO BID Qty: 180 RF: 3 Referrals / Follow Up: Elmer Richards MD [Primary Care Provider] -
[2021-02-07 11:07] VITALS: PULSE 63
--- NOTE | 2021-02-07 11:34 | DS.PCM_ITS ---
Providers Date of Admission: 02/05/21 Primary Care Physician: Dr. Elmer Richards MD Consultations 02/05/21 23:25 Consult: Cardiology Routine Consulting Provider: Omid Dubois Reason for Consult: Heart block EMERGENT Consult: No MD Notified: Yes Date Notified: 02/05/21 Time Notified: 20:42 Method of Notification: Verbal Method of Consult:: In-Person Reason For Visit: DYSRHYTHMIA Diagnosis Discharge Diagnosis (1) Mobitz type 2 second degree AV block: Status: Acute Code(s): I44.1 - Atrioventricular block, second degree Medications at Discharge Home Medications glatiramer 40 mg/mL subcutaneous syringe 40 mg SC .Q3DAYS 06/24/18 amlodipine 5 mg tablet 2.5 mg PO DAILY tab 10/28/20 Jardiance 25 mg PO DAILY 01/16/21 Tresiba FlexTouch U-100 28 unit SC 1500 01/16/21 cholecalciferol (vitamin D3) 1,250 mcg PO .Q2WEEK 01/16/21 gabapentin 300 mg PO QHS 01/16/21 levothyroxine 150 mcg PO DAILY 01/16/21 meloxicam [Mobic] 7.5 mg PO DAILY 01/16/21 tizanidine 4 mg PO QHS 01/16/21 rosuvastatin 5 mg tablet 5 mg PO DAILY #30 tab 01/23/21 hydrochlorothiazide 25 mg tablet 25 mg PO DAILY #30 tab 01/31/21 losartan 50 mg tablet 50 mg PO BID #180 tab 01/31/21 Ozempic 1 mg SUBCUT QWEEK 02/07/21 Hospital Course Operations None Procedures - (pacemaker insertion) Summary of Care Provided Minutes Spent on Discharge: 45 Hospital Course: Patient is a-year-old female with past medical history as outlined which includes multiple sclerosis and diabetes mellitus. She was admitted via the ED on 02/05/2021 on account of suspicion for heart block. Patient had an event monitor placed on the day of admission on outpatient basis on account of palpitations. She said was at home, the event monitor company ca lled her and told her she had heart block so she should come into the ED. She denied any chest pain, dizziness, nausea vomiting or diarrhea. Review of systems was otherwise negative. On admission, EKG was suspicious for first- degree AV block and left anterior fascicular block. Cardiology was consulted and per their review, thought patient had a Mobitz type II second-degree AV block.. Patient had a pacemaker insertion on 02/06/2021 and tolerated procedure well. She remained stable and was discharged home on 02/07/2021. She is to follow-up with cardiology and her primary care doctor. Patient seen and examined prior to discharge. She had no complaints and pain was well controlled. Review of systems otherwise negative. Labs and vitals reviewed. Home medication reviewed and reconciled. Physical Exam Const alert, oriented x3 and no apparent distress General Appearance: cooperative, comfortable and well kempt Exam Limitations: no limitations HEENT normocephalic, head/scalp atraumatic, moist oral mucous membranes and oropharynx normal Eyes PERRL, EOMs intact bilaterally and conjunctivae normal Neck no lymphadenopathy Resp normal respiratory effort, no retractions, no use of accessory muscles and clear to auscultation bilaterally Cardio regular rate, regular rhythm, S1 normal heart sound, S2 normal heart sound and no gallops Cardio Narrative: left sided pacemaker inserted, with dressing over pacemaker. GI normal to inspection, nondistended, normoactive bowel sounds, soft to palpation, non-tender and non-distended Extremity normal to inspection, full ROM and no clubbing, cyanosis or edema Skin no rashes or lesions noted Neuro oriented x3, CN's II-XII intact bilaterally and moves all extremities Sensorium / Orientation: awake and alert Psych affect normal Weight / BMI Weight Weight: 240 lb 8.389 oz Body Mass Index (BMI) 45.4 ABG / Lab / Microbiology Data Result Diagrams: 02/07/21 05:55 02/07/21 05:55 Laboratory: Laboratory Results - last 24 hr 02/06/21 08:44: MRSA (PCR) Negative 02/06/21 16:41: POC Glucose 142 H 02/06/21 22:11: POC Glucose 132 H 02/07/21 05:55: WBC 9.8, RBC 4.70, Hgb 13.8, Hct 43.1, MCV 91.7, MCH 29.4, MCHC 32.0, RDW Std Deviation 41.6, RDW Coeff of George 12.4, Plt Count 342, MPV 9.4, Immature Gran % (Auto) 0.400, Neut % (Auto) 70.8 H, Lymph % (Auto) 21.8, [place] % (Auto) 5.2, Eos % (Auto) 1.3, Baso % (Auto) 0.5, Absolute Neuts (auto) 7.0, Absolute Lymphs (auto) 2.15, Nucleated RBC % 0 02/07/21 05:55: Sodium 139, Potassium 4.0, Chloride 106, Carbon Dioxide 24.0, Anion Gap 9, BUN 12, Creatinine 0.53 L, Estim Creat Clear Calc 95.83, Est GFR (MDRD) Af Amer 156, Est GFR (MDRD) Non-Af 129, BUN/Creatinine Ratio 22.6 H, Glucose 119 H, Calcium 8.3 L 02/07/21 06:34: POC Glucose 131 H Radiography Diagnostic Testing: Radiology Impression Chest X-Ray 02/07/21 05:55 IMPRESSION: 1. Atrial ventricular pacemaker. 2. No evidence for acute cardiopulmonary pathology. Electronically Signed: Kris James MD at 6:32 EDT , Service support , D/C Instructions Discharge Diet: No restrictions (as you feel able. No excessive stretching. No lifting your arm over your head (keep elbow below shoulder level) until seen for your pacemaker check. Do not lift your elbow away from your side until you are seen for your first visit. Keep the arm sling on if it helps remind you not to lift your arm.) Additional Activity Instructions: May shower or bathe on []. Do not scrub the incision or soak in the tub. Just wash with soap and let the water run over the incision. Gently pat dry with towel. Medications: Take your pain medication as directed. Refer to your discharge instruction sheet for a list of medications you are to take. Call your doctor if your incision/area has: Continuous Slow Oozing, Sudden Increased Bleeding, Increased Pain/ Swelling, Increased Redness, Foul Smelling Discharge and Swelling at the incision site Call your doctor if you observe: Fever of 101 or Higher, Shortness of breath, Dizziness, Fainting spells, Swelling in the ankles, Chest pain, Prolonged hiccupping and Increased palpitations (irregular heartbeat) Additional Dressing/Incision Instructions: When dressing is removed, wash and dry incision. Keep covered with a light bandage if it is rubbing against your clothing. Do not cover the incision with an airtight bandage. Change the bandage daily. Do not remove steri strips. The strips will fall off on their own. Please Follow Up With: Michael Liu MD When: Call [phone] for follow up. Follow-up in pacer clinic on February 14 at 11 AM Meaningful Use Info Meaningful Use Diagnoses (Choose all that apply): None applicable Discharge Plan Admission Admit Date/Time: 02/05/21 20:53 Primary Reason for Your Visit: second degree heart block Attending Provider: Yissel Bauer Primary Care Provider: Elmer Richards Consulting Providers: Omid Dubois Discharge Orders/Prescriptions Prescriptions: Continued glatiramer [Copaxone] 40 mg/mL syringe 40 mg SC .Q3DAYS RF: 0 rosuvastatin 5 mg tablet 5 mg PO DAILY Qty: 30 RF: 5 amlodipine 5 mg tablet 2.5 mg PO DAILY RF: 0 meloxicam [Mobic] 7.5 mg Tablet 7.5 mg PO DAILY RF: 0 gabapentin 300 mg Tablet 300 mg PO QHS RF: 0 tizanidine 4 mg Capsule 4 mg PO QHS RF: 0 Jardiance 25 mg Tablet 25 mg PO DAILY RF: 0 levothyroxine 150 mcg tablet 150 mcg PO DAILY RF: 0 cholecalciferol (vitamin D3) 1,250 mcg (50,000 unit) capsule 1,250 mcg PO .Q2WEEK RF: 0 Tresiba FlexTouch U-100 100 unit/mL (3 mL) insulin pen 28 unit SC 1500 RF: 0 Ozempic 1 mg/dose (4 mg/3 mL) pen injector 1 mg subcut QWEEK RF: 0 hydrochlorothiazide 25 mg tablet 25 mg PO DAILY Qty: 30 RF: 3 losartan 50 mg tablet 50 mg PO BID Qty: 180 RF: 3 Referrals / Follow Up: Michael Liu MD [STAFF PHYSICIAN] - (As directed) Elmer Richards MD [Primary Care Provider] - Within 2 Weeks Disposition Disposition (needs filled in before D/C Order can be placed): Home, Self Care Charges/Coding Visit Charges Inpatient E&M: 19179 Disch Hosp
[2021-02-07] MEDS: Insulin Lispro 100 UNIT/ML INSULN.PEN SC (11:38)
--- NOTE | 2021-02-07 11:47 | PHA.DC.MR ---
Pharmacy Service has performed discharge medication reconciliation for this patient. The patient's discharge medication list was reviewed for discrepancies and discrepancies were resolved. Home Medications glatiramer 40 mg/mL subcutaneous syringe 40 mg SC .Q3DAYS 06/24/18 amlodipine 5 mg tablet 2.5 mg PO DAILY tab 10/28/20 Jardiance 25 mg PO DAILY 01/16/21 Tresiba FlexTouch U-100 28 unit SC 1500 01/16/21 cholecalciferol (vitamin D3) 1,250 mcg PO .Q2WEEK 01/16/21 gabapentin 300 mg PO QHS 01/16/21 levothyroxine 150 mcg PO DAILY 01/16/21 meloxicam [Mobic] 7.5 mg PO DAILY 01/16/21 tizanidine 4 mg PO QHS 01/16/21 rosuvastatin 5 mg tablet 5 mg PO DAILY #30 tab 01/23/21 hydrochlorothiazide 25 mg tablet 25 mg PO DAILY #30 tab 01/31/21 losartan 50 mg tablet 50 mg PO BID #180 tab 01/31/21 Ozempic 1 mg SUBCUT QWEEK 02/07/21
[2021-02-07 11:56] LABS: Bedside Glucose 160 mg/dL (70-110)
[2021-02-07 12:47] VITALS: BP 143/88; PULSE 66; RESP 14; TEMP 37.1; O2SAT 93
== END 2021-02-07 11:42 | disposition home or self-care (01) ==
LOC: ED 20:35 → PCU 23:04
PROVIDERS: Internal Medicine Cardiovascular Disease; Admitting Provider Hospitalist; Emergency Provider Emergency Medicine; PCP Family Medicine; Referring Provider Internal Medicine Interventional Cardiology; Visit Provider Student in an Organized Health Care Education/Training Program
DX: I44.1 Atrioventricular block, second degree (principal); I45.2 Bifascicular block; Z23 Encounter for immunization; I10 Essential (primary) hypertension; F41.9 Anxiety disorder, unspecified; Q24.5 Malformation of coronary vessels; E03.9 Hypothyroidism, unspecified; G35 Multiple sclerosis; M06.9 Rheumatoid arthritis, unspecified; E55.9 Vitamin D deficiency, unspecified; E11.65 Type 2 diabetes mellitus with hyperglycemia; E78.2 Mixed hyperlipidemia; E66.01 Morbid (severe) obesity due to excess calories; Z68.42 Body mass index [BMI] 45.0-49.9, adult; Z79.899 Other long term (current) drug therapy; Z87.891 Personal history of nicotine dependence; Z79.4 Long term (current) use of insulin; Z79.890 Hormone replacement therapy
CPT/HCPCS: 33208; 36415; 71045; 71047; 80048; 82962; 83735; 84443; 84484; 85025; 87641; 93005; 96360; 96361; 99152; 99153; 99218; 99285; J7030; J7050; 90686; A4216; C1894; G0378

== ENCOUNTER 2021-06-29 11:09 | Outpatient (CLI) | payer OTHER, SELFPAY ==
[2021-06-29 12:21] LABS: Cholesterol 173 mg/dL (200); High Density Lipoprotein 52 mg/dL; Triglycerides 246 mg/dL; Very Low Density Lipoprotein 49 mg/dL (5-40)
== END 2021-06-29 23:59 | disposition home or self-care (01) ==
LOC: BIMLAB 11:09
PROVIDERS: PCP Family Medicine; Referring Provider Nurse Practitioner Family; Visit Provider Nurse Practitioner Family
DX: I44.1 Atrioventricular block, second degree (principal); E78.2 Mixed hyperlipidemia
CPT/HCPCS: 36415; 80061

== ENCOUNTER → 2021-12-07 | Outpatient (CLI) | payer OTHER, SELFPAY ==
[2021-12-07 17:07] LABS: Absolute Lymphocyte Count 2.01 X10^3/uL (0.83-4.51); Absolute Neutrophil Count 7.8 X10^3/uL (2.0-7.7); Basophil# 0.06 X10^3/uL; Basophil% 0.5 % (0-1); Eosinophil# 0.32 X10^3/uL; Eosinophils% 2.9 % (0-5); Hematocrit 48.7 % (37-47); Hemoglobin 15.9 g/dL (12.0-15.0); Lymphocyte # 2.01 X10^3/ul (0.83-4.51); Lymphocyte % 18.3 % (19-41); Mean Corp Hgb Conc 32.6 g/dL (32-36); Mean Corpuscular Hgb 30.1 pg (27.0-32.0); Mean Corpuscular Volume 92.1 fL (81-99); Mean Platelet Vol. 9.5 fl (6.2-12.0); Monocyte# 0.71 X10^3/uL; Monocyte% 6.5 % (0-10); NRBC Flagged by Analyzer 0 % (0-5); Neutrophil # 7.82 X10^3/uL (2.7-7.7); Neutrophil % 71.4 % (47-70); Platelet Count 318 K/mm3 (150-450); RBC Distribution Width SD 43.5 fl (35.1-43.9); Red Blood Count 5.29 M/mm3 (4.2-5.4)
[2021-12-07 17:39] LABS: ALB/GLOB Ratio 0.8 RATIO (0.9-2.4); AST(SGOT) 28 U/L (15-37); Alanine Aminotransfer ALT/SGPT 39 U/L (13-56); Albumin, Serum 3.5 g/dL (3.2-5.0); Alkaline Phosphatase 84 U/L (45-117); Anion Gap 7 (5-15); BUN 15 mg/dL (7-18); BUN/Creat Ratio 20.5 RATIO (10-20); Calcium,Total 9.6 mg/dL (8.5-10.1); Chloride 101 mmol/L (98-107); Creatinine, Serum 0.73 mg/dL (0.55-1.02); EST Glomerular Filtration Rate 89 mL/min (>60); Est Glom Filt Rate - Afr Amer 108 mL/min (>60); Globulin 4.5 g/dL (2.2-4.2); Glucose 145 mg/dL (74-106); Magnesium 2.1 mg/dL (1.6-2.6); Potassium 3.8 mmol/L (3.5-5.1); Sodium Level 137 mmol/L (136-145); Thyroid Stim Hormone (TSH) 0.09 uIU/mL (0.358-3.74)
[2021-12-07 17:45] LABS: Hemoglobin A1c 8.3 % (3.8-5.6)
== END | disposition home or self-care (01) ==
LOC: LAB 16:08
PROVIDERS: PCP Family Medicine; Referring Provider Nurse Practitioner Family; Visit Provider Nurse Practitioner Family
DX: R53.83 Other fatigue (principal); E11.65 Type 2 diabetes mellitus with hyperglycemia; Z79.4 Long term (current) use of insulin; R00.2 Palpitations
CPT/HCPCS: 36415; 80053; 83036; 83735; 84443; 85025

== ENCOUNTER → 2022-02-05 | Outpatient (CLI) | payer OTHER, SELFPAY ==
--- NOTE | 2022-02-05 14:25 | BI_ITS ---
MAMMOGRAPHY - BILATERAL SCREENING REASON FOR EXAM: Female, 51 years old. Routine annual screening examination. PERTINENT HISTORY: Grandmother with breast cancer. TECHNIQUE: Digital bilateral breast verito (3D mammographic acquisition) in the CC and MLO projections. 2-D mediolateral oblique (MLO) and craniocaudad (CC) views of both breasts were obtained. CAD: Full Field Digital Mammography with Computer Added Detection was performed. COMPARISON: Comparison is made with prior study dated 12/20/2020. FINDINGS: Breast Composition: The breasts are heterogeneously dense, which may obscure small masses. There are no dominant masses or suspicious calcifications. Stable small benign-appearing right axillary lymph nodes. A battery pack of a pacemaker device is seen in the left axillary region. No other significant abnormalities are identified. There has been no significant change since the prior study. BI/SCRN MAMM (CAD)W/VERITO BILAT IMPRESSION: Stable bilateral screening mammogram. Yearly follow-up mammogram recommended. (A) ASSESSMENT CATEGORY: BIRADS Category 2: Benign. A letter regarding these results will be sent to the patient by the facility within 30 days. Approximately 10% of breast cancers are not detected by mammography. A normal mammogram should not delay biopsy of a clinically suspicious abnormality. [id number] Electronically Signed: Chauncey Estrada MD at 15:41 EDT ,
== END | disposition home or self-care (01) ==
LOC: OPBI 14:24
PROVIDERS: PCP Family Medicine; Visit Provider Obstetrics & Gynecology
DX: Z12.31 Encounter for screening mammogram for malignant neoplasm of breast (principal)
CPT/HCPCS: 77063; 77067

== ENCOUNTER → 2022-03-19 | Outpatient (CLI) | payer OTHER, SELFPAY ==
[2022-03-19 17:36] LABS: Hemoglobin A1c 7.7 % (3.8-5.6)
[2022-03-19 17:41] LABS: T4 Free Direct 1.57 ng/dL (0.76-1.46); Thyroid Stim Hormone (TSH) 0.65 uIU/mL (0.358-3.74)
== END | disposition home or self-care (01) ==
LOC: LAB 16:15
PROVIDERS: Nurse Practitioner Family; PCP Family Medicine; Referring Provider Internal Medicine Endocrinology, Diabetes & Metabolism; Visit Provider Internal Medicine Endocrinology, Diabetes & Metabolism
DX: E11.9 Type 2 diabetes mellitus without complications (principal); E03.8 Other specified hypothyroidism; E06.3 Autoimmune thyroiditis
CPT/HCPCS: 36415; 83036; 84439; 84443

== ENCOUNTER → 2022-12-24 | Outpatient (CLI) | payer OTHER, SELFPAY ==
--- NOTE | 2022-12-24 15:17 | CT_ITS ---
STUDY: CT ABDOMEN AND PELVIS WITH CONTRAST - URINARY TRACT REASON FOR EXAM: Female, 52 years old. 3days bloody bowel motions and lower abd/back pain, immunocompromised RADIATION DOSAGE (If Supplied By Facility): CTDIvol = ( 17.83 ) mGy, DLP = ( 1177.02 ) mGycm TECHNIQUE: Oral and amp; IV Gastrografin and amp; 100mL Isovue-300 was administered. Transaxial images were obtained from the dome of the diaphragm to the symphysis pubis subsequent to intravenous contrast administration. Multiplanar coronal and sagittal images were reformatted. Individualized Dose Optimization Techniques Were Used For This CT. COMPARISON: No relevant prior comparison study available FINDINGS: The visualized lung bases are unremarkable. There is a dual-lead cardiac pacer device in place. Normal liver. There are surgical clips in the gallbladder fossa consistent with a prior cholecystectomy. Normal spleen. Normal pancreas. Normal bilateral adrenal glands. Normal visualized stomach. There is a diverticulum arising from the duodenum. There is circumferential wall thickening of the descending and sigmoid colon with adjacent mild stranding. There are a few scattered diverticula arising from the colon. The appendix is visualized and appears normal. There are scattered peripheral calcifications of the abdominal aorta consistent with atherosclerosis. No retroperitoneal adenopathy. Normal right kidney. Normal left kidney. Normal urinary bladder. There is a small umbilical hernia containing fat. There are diffuse degenerative changes of the visualized lumbar spine. CT/Abdomen/Pelvis WITH Contrast IMPRESSION: Colitis involving the descending and sigmoid colon, etiologies include ischemic, infectious and inflammatory colitis. Atherosclerosis. Colonic diverticulosis. Duodenal diverticulum. Electronically Signed: Camille Castellanos MD at 15:44 EDT ,
[2022-12-24 15:29] LABS: Absolute Lymphocyte Count 1.82 X10^3/uL (0.83-4.51); Basophil# 0.04 X10^3/uL; Basophil% 0.4 % (0-1); Eosinophil# 0.26 X10^3/uL; Eosinophils% 2.4 % (0-5); Hematocrit 43.8 % (37-47); Hemoglobin 14.1 g/dL (12.0-15.0); Lymphocyte # 1.82 X10^3/ul (0.83-4.51); Lymphocyte % 16.9 % (19-41); Mean Corp Hgb Conc 32.2 g/dL (32-36); Mean Corpuscular Hgb 29.8 pg (27.0-32.0); Mean Corpuscular Volume 92.6 fL (81-99); Monocyte% 5.6 % (0-10); NRBC Flagged by Analyzer 0 % (0-5); Neutrophil # 7.99 X10^3/uL (2.7-7.7); Neutrophil % 74.3 % (47-70); Platelet Count 323 K/mm3 (150-450); RBC Distribution Width CV 12.3 % (11.6-14.6); RBC Distribution Width SD 42.4 fl (35.1-43.9); Red Blood Count 4.73 M/mm3 (4.2-5.4); White Blood Count 10.8 K/mm3 (4.4-11.0)
[2022-12-24 16:25] LABS: ALB/GLOB Ratio 0.7 RATIO (0.9-2.4); AST(SGOT) 19 U/L (15-37); Alanine Aminotransfer ALT/SGPT 29 U/L (13-56); Albumin, Serum 2.9 g/dL (3.2-5.0); Alkaline Phosphatase 93 U/L (45-117); Anion Gap 2 (5-15); BUN 7 mg/dL (7-18); BUN/Creat Ratio 11.3 RATIO (10-20); Calcium,Total 8.7 mg/dL (8.5-10.1); Chloride 105 mmol/L (98-107); Creatinine, Serum 0.62 mg/dL (0.55-1.02); EST Glomerular Filtration Rate 107 mL/min (>60); Est Glom Filt Rate - Afr Amer 130 mL/min (>60); Glucose 190 mg/dL (74-106); Protein, Total 6.9 g/dL (6.4-8.2); Sodium Level 137 mmol/L (136-145)
== END | disposition home or self-care (01) ==
PROVIDERS: PCP Family Medicine; Referring Provider Family Medicine; Visit Provider Family Medicine
DX: K57.32 Diverticulitis of large intestine without perforation or abscess without bleeding (principal)
CPT/HCPCS: 74177; 80053; 85025; 86140; 87506; Q9967

== ENCOUNTER → 2023-01-21 | Outpatient (CLI) | payer OTHER, SELFPAY ==
[2023-01-21 12:37] LABS: Color, Urine Yellow (Yellow); Glucose, Dipstick Normal (Normal); Ketone-Dipstick Negative (Negative); Leukocyte Esterase-Dipstick Negative /ul (Negative); Nitrite-Dipstick Negative (Negative); Occult Blood-Urine Negative /ul (Negative); Protein-Dipstick Negative (Negative); Urine Bilirubin Dipstick Negative (Negative); Urine Clarity Sl. Cloudy (Clear); Urine Urobilinogen Normal (Normal); Urine pH 6.5 (5.0 - 8.0)
[2023-01-21 13:15] LABS: Cholesterol 201 mg/dL (200); High Density Lipoprotein 60 mg/dL; T4 Free Direct 1.36 ng/dL (0.76-1.46); Thyroid Stim Hormone (TSH) 2.44 uIU/mL (0.358-3.74); Triglycerides 175 mg/dL; Very Low Density Lipoprotein 35 mg/dL (5-40)
[2023-01-21 13:33] LABS: Hepatitis B Surface Antibody Non-Reactive; Hepatitis B Surface Antigen Non-Reactive (Nonreactive); Hepatitis C Antibody Non-Reactive (Nonreactive)
[2023-01-23 14:09] LABS: Anti-dsDNA Ab <1 IU/mL (0-9); Vitamin D 1,25-Dihydroxy 66.2 pg/mL (24.8-81.5)
[2023-01-23 15:09] LABS: ANA- Smooth Homogeneous >1:1280 (.); Anti-Nuclear Antibody Test Positive (.)
[2023-01-23 16:09] LABS: Beta-2-Glycoprotein I IgA <9 (0-25); Beta-2-Glycoprotein I IgG <9 (0-20); Beta-2-Glycoprotein I IgM 33 (0-32); Complement C3 157 mg/dL (82-167); Dilute Prothrombin Time (dPT) 33.9 sec (0.0-47.6); Dilute Russell Viper Venom 41.8 sec (0.0-47.0); Hepatitis B Core Ab Total Negative (Negative); Hexagonal Phase Phospholipid 2 14 sec (0-11); Interpretation Comment: (.); PTT-LA 43.7 sec (0.0-43.5); PTT-LA Mix 43.2 sec (0.0-40.5); Thrombin Time 16.3 sec (0.0-23.0); dPT Confirm Ratio 0.97 Ratio (0.00-1.34)
== END | disposition home or self-care (01) ==
LOC: LAB 11:24
PROVIDERS: PCP Family Medicine; Referring Provider Nurse Practitioner Family; Visit Provider Nurse Practitioner Family
DX: G35 Multiple sclerosis (principal); E11.9 Type 2 diabetes mellitus without complications; R53.83 Other fatigue; R76.0 Raised antibody titer; E03.9 Hypothyroidism, unspecified; E78.5 Hyperlipidemia, unspecified; E66.9 Obesity, unspecified
CPT/HCPCS: 80061; 81002; 82306; 82652; 84439; 84443; 86038; 86146; 86160; 86225; 86704; 86706; 86803; 87340

== ENCOUNTER → 2023-02-28 | Outpatient (CLI) | payer OTHER, SELFPAY ==
[2023-03-04 17:07] LABS: Anti-Cardiolipin Ab, IgA, Qn < 9 APL U/mL (0-11); Anti-Cardiolipin Ab, IgG, Qn < 9 GPL U/mL (0-14); Anti-Cardiolipin Ab, IgM, Qn 73 MPL U/mL (0-12); Beta-2-Glycoprotein I IgA <9 (0-25); Beta-2-Glycoprotein I IgG <9 (0-20); Beta-2-Glycoprotein I IgM 42 (0-32); Dilute Russell Viper Venom 46.4 sec (0.0-47.0); Interpretation Comment: (.); PTT-LA 42.9 sec (0.0-43.5); Thrombin Time 16.9 sec (0.0-23.0); dPT Confirm Ratio 1.05 Ratio (0.00-1.34)
== END | disposition home or self-care (01) ==
LOC: LAB 10:22
PROVIDERS: PCP Family Medicine
DX: D68.62 Lupus anticoagulant syndrome (principal)
CPT/HCPCS: 36415; 81240; 86146; 86147

== ENCOUNTER → 2023-03-12 | Outpatient (CLI) | payer OTHER, SELFPAY ==
--- NOTE | 2023-03-12 15:40 | RAD_ITS ---
INDICATION: Please check for ATRIAL LEAD FRACTURE EXAMINATION/TECHNIQUE: X-RAY - XR Chest 2 Views COMPARISON: February 07, 2021 FINDINGS: LINES/DEVICES: Stable left-sided pacemaker. No fracture lead is noted. LUNGS: No consolidation, edema or effusion. No pneumothorax. MEDIASTINUM AND CARDIOVASCULAR STRUCTURES: Cardiac silhouette not enlarged. Central airways and mediastinal contour are unremarkable. BONES AND SOFT TISSUES: Unremarkable. RAD/Chest PA and Lateral IMPRESSION: No radiographic evidence of acute cardiopulmonary disease. Electronically Signed: Girish Mora DO at 23:28 EST ,
== END | disposition home or self-care (01) ==
LOC: RAD 15:40
PROVIDERS: PCP Family Medicine; Referring Provider Specialist; Visit Provider Specialist
DX: I48.0 Paroxysmal atrial fibrillation (principal); I44.1 Atrioventricular block, second degree; Z95.0 Presence of cardiac pacemaker; I45.9 Conduction disorder, unspecified; T82.110A Breakdown (mechanical) of cardiac electrode, initial encounter
CPT/HCPCS: 71046

== ENCOUNTER → 2023-03-20 | Outpatient (CLI) | payer OTHER, SELFPAY ==
--- NOTE | 2023-03-20 14:33 | BI_ITS ---
MAMMOGRAPHY - BILATERAL DIAGNOSTIC REASON FOR EXAM: Female, 52 years old. Occasional left breast pain. PERTINENT HISTORY: Grandmother with breast cancer. TECHNIQUE: Digital bilateral breast fede (3D mammographic acquisition) in the CC and MLO projections. 2-D mediolateral oblique (MLO) and craniocaudad (CC) views of both breasts were obtained. CAD: Full Field Digital Mammography with Computer Added Detection was performed. COMPARISON: Comparison is made with prior study dated February 05, 2022 and December 20, 2020. FINDINGS: Breast Composition: The breasts are heterogeneously dense, which may obscure small masses. There are no dominant masses or suspicious calcifications. Stable axillary lymph nodes. A battery pack from a pacemaker is seen in the left axilla. No other significant abnormalities are identified. There has been no significant change since the prior study. BI/DIAG MAMM W/CAD, BILAT IMPRESSION: Stable bilateral diagnostic mammogram. With the patient''s history of occasional left lateral breast pain, correlation with ultrasound is recommended. ASSESSMENT CATEGORY: BIRADS Category 0: Incomplete. Need additional imaging evaluation. A letter regarding these results will be sent to the patient by the facility within 30 days. Approximately 10% of breast cancers are not detected by mammography. A normal mammogram should not delay biopsy of a clinically suspicious abnormality. Electronically Signed: Chauncey Estrada MD at 15:34 EST ,
--- NOTE | 2023-03-20 14:33 | US_ITS ---
STUDY: ULTRASOUND BREAST - LEFT REASON FOR EXAM: Female, 52 years old. Pain in the left breast. TECHNIQUE: Axial and longitudinal images of the LEFT breast were performed with a high resolution ultrasound transducer. # OF IMAGES: 49 COMPARISON: Comparison is made with prior mammogram done earlier in the day. FINDINGS: LEFT Breast: The lateral half of the left breast was examined with ultrasound. No sonographic abnormality is seen. US/Breast Limited Unilateral IMPRESSION: No sonographic abnormality is seen. ASSESSMENT CATEGORY: BIRADS Category 1: Negative. A letter regarding these results will be sent to the patient by the facility within 30 days. Electronically Signed: Chauncey Estrada MD at 9:21 EST ,
== END | disposition home or self-care (01) ==
PROVIDERS: PCP Family Medicine; Referring Provider Obstetrics & Gynecology; Visit Provider Obstetrics & Gynecology
DX: N64.4 Mastodynia (principal)
CPT/HCPCS: 76642; 77062; 77066; G0279

== ENCOUNTER → 2023-08-02 | Outpatient (CLI) | payer OTHER, SELFPAY ==
--- NOTE | 2023-08-02 08:07 | ECHOD_ITS ---
Reason For Study: Dyspnea Procedure This was a 2D Doppler, Color Flow transthoracic echocardiogram. Exam performed in department. Left Ventricle Normal LV size. Left ventricular systolic function is normal. The estimated ejection fraction is 55 %. No regional wall motion abnormalities noted. Right Ventricle Normal RV size. ICD or pacer leads identified within the right ventricle. Normal systolic function. Atria Normal left atrium. Normal right atrium. Mitral Valve Normal mitral valve. Mild (1+) mitral valve insufficiency. Tricuspid Valve Normal tricuspid valve. Mild (1+) tricuspid valve insufficiency. Pulmonary artery systolic pressure is 28 mmHg. Aortic Valve Trisinus/trileaflet aortic valve. Pulmonic Valve Normal pulmonic valve. Great Vessels Normal aortic root. The pulmonary artery is normal size. Normal inferior vena cava. Pericardium/Pleural No pericardial effusion. MMode/2D Measurements & Calculations LVIDd: 4.6 cm IVSd: 0.89 cm Ao root diam: 3.1 cm LVIDs: 2.4 cm LVPWd: 1.0 cm RVDd: 3.4 cm FS: 47.1 % LAV(MOD-bp): 36.8 ml LVAd ap4: 26.2 cm2 SV(MOD-sp4): 45.4 ml LAV(MOD-bp) Indexed: 17.9 ml/m2 LVLd ap4: 7.2 cm LAV(MOD-sp2): 33.2 ml EDV(MOD-sp4): 78.8 ml LAV(MOD-sp4): 36.2 ml EDV(sp4-el): 81.4 ml LVAs ap4: 15.2 cm2 LVLs ap4: 6.0 cm ESV(MOD-sp4): 33.4 ml ESV(sp4-el): 33.0 ml EF(MOD-sp4): 57.6 % EF(sp4-el): 59.4 % SV(sp4-el): 48.4 ml LA A4 area: 14.3 cm2 LA dimension(2D): 4.4 cm RA A4 area: 10.3 cm2 TAPSE: 2.0 cm Time Measurements MV dec time: 0.20 sec Doppler Measurements & Calculations MV E max timothy: 88.8 cm/sec Lat Peak E' Timothy: 10.7 cm/sec Med Peak E' Timothy: 6.2 cm/sec MV A max timothy: 83.3 cm/sec E/E' lat: 8.3 E/E' med: 14.4 MV E/A: 1.1 Ao V2 max: 151.9 cm/sec LV V1 max: 95.4 cm/sec MV dec slope: 444.7 cm/sec2 Ao max P.2 mmHg LV V1 max P.6 mmHg Ao V2 mean: 111.5 cm/sec Ao mean P.3 mmHg Ao V2 VTI: 36.5 cm PA V2 max: 104.5 cm/sec TR max timothy: 246.2 cm/sec TR max P.3 mmHg ECHO/Echo Complete Interpretation Summary Normal LV size. Left ventricular systolic function is normal. The estimated ejection fraction is 55 %. Mild (1+) mitral valve insufficiency. Ordering Physician: Milvia Negron Referring Physician: Elmer Richards Performed By: Rhianna Ji, ERIC, RVT
== END | disposition home or self-care (01) ==
LOC: CVS 08:07
PROVIDERS: PCP Family Medicine; Referring Provider Physician Assistant Medical; Visit Provider Physician Assistant Medical
DX: R06.00 Dyspnea, unspecified (principal)
CPT/HCPCS: 93306

== ENCOUNTER → 2023-09-03 | Outpatient (CLI) | payer OTHER, SELFPAY ==
[2023-09-03 16:09] LABS: Absolute Lymphocyte Count 1.63 X10^3/uL (0.83-4.51); Absolute Neutrophil Count 5.6 X10^3/uL (2.0-7.7); Basophil# 0.07 X10^3/uL; Basophil% 0.8 % (0-1); Eosinophil# 0.38 X10^3/uL; Eosinophils% 4.6 % (0-5); Hematocrit 41.6 % (37-47); Hemoglobin 13.7 g/dL (12.0-15.0); Lymphocyte # 1.63 X10^3/ul (0.83-4.51); Lymphocyte % 19.6 % (19-41); Mean Corp Hgb Conc 32.9 g/dL (32-36); Mean Corpuscular Hgb 29.3 pg (27.0-32.0); Mean Corpuscular Volume 88.9 fL (81-99); Mean Platelet Vol. 9.9 fl (6.2-12.0); Monocyte# 0.58 X10^3/uL; NRBC Flagged by Analyzer 0 % (0-5); Neutrophil # 5.61 X10^3/uL (2.7-7.7); Neutrophil % 67.6 % (47-70); Platelet Count 296 K/mm3 (150-450); RBC Distribution Width CV 12.4 % (11.6-14.6); RBC Distribution Width SD 40.5 fl (35.1-43.9); Red Blood Count 4.68 M/mm3 (4.2-5.4); White Blood Count 8.3 K/mm3 (4.4-11.0)
[2023-09-03 16:35] LABS: BNP,B-Type NATRIURETIC PEPTIDE 34.9 pg/mL (0-100)
[2023-09-03 16:38] LABS: ALB/GLOB Ratio 0.9 RATIO (0.9-2.4); AST(SGOT) 18 U/L (15-37); Alanine Aminotransfer ALT/SGPT 27 U/L (13-56); Albumin, Serum 3.4 g/dL (3.2-5.0); Alkaline Phosphatase 79 U/L (45-117); Anion Gap 7 (5-15); BUN 10 mg/dL (7-18); BUN/Creat Ratio 15.2 RATIO (10-20); Calcium,Total 8.9 mg/dL (8.5-10.1); Chloride 103 mmol/L (98-107); Creatinine, Serum 0.66 mg/dL (0.55-1.02); EST Glomerular Filtration Rate 100 mL/min (>60); Est Glom Filt Rate - Afr Amer 121 mL/min (>60); Globulin 3.9 g/dL (2.2-4.2); Glucose 214 mg/dL (74-106); Potassium 3.8 mmol/L (3.5-5.1); Protein, Total 7.3 g/dL (6.4-8.2); Sodium Level 135 mmol/L (136-145)
== END | disposition home or self-care (01) ==
LOC: LAB 15:17
PROVIDERS: PCP Family Medicine; Referring Provider Physician Assistant Medical; Visit Provider Physician Assistant Medical
DX: R06.02 Shortness of breath (principal); M79.89 Other specified soft tissue disorders
CPT/HCPCS: 36415; 80053; 83880; 85025

== ENCOUNTER → 2023-09-13 | Outpatient (CLI) | payer OTHER, SELFPAY ==
--- NOTE | 2023-09-13 12:37 | VDUE_ITS ---
Reason For Study: Swelling both hands Right Proximal Left Proximal Right jugular vein is spontaneous, widely Left jugular vein is spontaneous, widely patent, phasic, with no intraluminal patent, phasic, with no intraluminal echogenicity noted. echogenicity noted. Right subclavian vein is spontaneous, widely Left subclavian vein is visualized with color patent, phasic, with no intraluminal only, continuous venous flow noted. echogenicity noted. Left Arm Right Lower Arm Left axillary vein is compressible with Right radial vein is compressible. continuous venous flow noted. Right ulnar vein is compressible. Left brachial vein is compressible. Right Arm Superficial vein thrombosis is noted in the Right axillary vein is spontaneous, patent, left cephalic vein from distal bicep to phasic, competent, compressible and antecube. demonstrates augmentation. Left basilic vein is compressible. Right brachial vein is compressible. Left Lower Arm Right cephalic vein is compressible. Left radial vein is compressible. Right basilic vein is compressible. Left ulnar vein is compressible. Patient Safety Preliminary report to Marjan EARL @ Dr. Adam's office. VL/Venous Duplex US - Brandon Extrem Interpretation Summary Deep veins of the right upper extremity are patent and compressible segmentally . There is no evidence of deep vein thrombosis. Superficial veins of the right upper extremity are patent and compressible segm entally. There is no evidence of superficial vein thrombosis. Superficial vein thrombosis noted in the left upper arm cephalic vein. Continuous flow pattern in left subclavian vein, axillary vein, suggesting more central obstruction Ordering Physician: Michael Liu Referring Physician: Elmer Richards MD Performed By: Marixa Malik RVT ???
== END | disposition home or self-care (01) ==
LOC: CVS 12:36
PROVIDERS: PCP Family Medicine; Referring Provider Internal Medicine Cardiovascular Disease; Visit Provider Internal Medicine Cardiovascular Disease
DX: R60.0 Localized edema (principal)
CPT/HCPCS: 93970

== ENCOUNTER → 2023-10-28 | Outpatient (CLI) | payer OTHER, SELFPAY ==
--- NOTE | 2023-10-28 14:45 | RAD_ITS ---
HISTORY: PAIN IN UNSPECIFIED JOINT. TECHNIQUE: XR Hand Min 3 Views. COMPARISON: None. FINDINGS: BONES : No acute fracture identified. Small bone island of the scaphoid. JOINTS: No dislocation. Joint spaces maintained. RAD/Hand Min 3 Views IMPRESSION: No acute fracture or dislocation identified in the left hand. Electronically Signed: Allyn Pitts MD at 9:15 EDT ,
--- NOTE | 2023-10-28 14:48 | RAD_ITS ---
HISTORY: PAIN IN UNSPECIFIED JOINT. TECHNIQUE: XR Wrist Min 3 Views. COMPARISON: None. FINDINGS: BONES : No acute fracture identified. Mineralization unremarkable. JOINTS: No dislocation. Joint spaces maintained. RAD/Wrist min 3 Views IMPRESSION: No acute fracture or dislocation identified in the right wrist. Electronically Signed: Allyn Pitts MD at 9:17 EDT ,
--- NOTE | 2023-10-28 14:48 | RAD_ITS ---
HISTORY: PAIN IN UNSPECIFIED JOINT. TECHNIQUE: XR Hand Min 3 Views. COMPARISON: None. FINDINGS: BONES : No acute fracture identified. Mineralization unremarkable. JOINTS: No dislocation. Joint spaces maintained. RAD/Hand Min 3 Views IMPRESSION: No acute fracture or dislocation identified in the right hand. Electronically Signed: Allyn Pitts MD at 9:17 EDT ,
--- NOTE | 2023-10-28 14:50 | RAD_ITS ---
HISTORY: PAIN IN UNSPECIFIED JOINT. TECHNIQUE: XR Wrist Min 3 Views. COMPARISON: None. FINDINGS: BONES : No acute fracture identified. Small bone island in the scaphoid. JOINTS: No dislocation. Joint spaces maintained. RAD/Wrist min 3 Views IMPRESSION: No acute fracture or dislocation identified in the left wrist. Electronically Signed: Allyn Pitts MD at 8:38 EDT ,
[2023-10-28 15:02] LABS: Absolute Lymphocyte Count 1.77 X10^3/uL (0.83-4.51); Absolute Neutrophil Count 9.9 X10^3/uL (2.0-7.7); Basophil# 0.06 X10^3/uL; Basophil% 0.5 % (0-1); Eosinophil# 0.17 X10^3/uL; Eosinophils% 1.3 % (0-5); Hematocrit 42.3 % (37-47); Hemoglobin 14.1 g/dL (12.0-15.0); Lymphocyte # 1.77 X10^3/ul (0.83-4.51); Lymphocyte % 13.6 % (19-41); Mean Corp Hgb Conc 33.3 g/dL (32-36); Mean Corpuscular Hgb 29.7 pg (27.0-32.0); Mean Corpuscular Volume 89.2 fL (81-99); Mean Platelet Vol. 9.4 fl (6.2-12.0); Monocyte# 1.03 X10^3/uL; Monocyte% 7.9 % (0-10); NRBC Flagged by Analyzer 0 % (0-5); Neutrophil % 76.3 % (47-70); Platelet Count 383 K/mm3 (150-450); RBC Distribution Width CV 12.5 % (11.6-14.6); RBC Distribution Width SD 40.4 fl (35.1-43.9); Red Blood Count 4.74 M/mm3 (4.2-5.4)
[2023-10-28 15:15] LABS: Color, Urine Yellow (Yellow); Glucose, Dipstick Normal (Normal); Ketone-Dipstick Negative (Negative); Leukocyte Esterase-Dipstick 100 /ul (Negative); Nitrite-Dipstick Negative (Negative); Occult Blood-Urine Negative /ul (Negative); Protein-Dipstick Negative (Negative); Specific Gravity, Urine 1.015 (1.002-1.030); Urine Bilirubin Dipstick Negative (Negative); Urine Clarity Sl. Cloudy (Clear); Urine Urobilinogen Normal (Normal)
[2023-10-28 15:25] LABS: Erythrocyte Sedimentation Rate 26 mm/hr (0-30)
[2023-10-28 15:41] LABS: AST(SGOT) 15 U/L (15-37); Alanine Aminotransfer ALT/SGPT 24 U/L (13-56); BUN 18 mg/dL (7-18); CRP 6.88 mg/L (0.0-3.0); Creatinine, Serum 0.77 mg/dL (0.55-1.02); EST Glomerular Filtration Rate 84 mL/min (>60); Est Glom Filt Rate - Afr Amer 101 mL/min (>60)
[2023-10-28 16:10] LABS: Calcium, Urine (Random) 7.7 mg/dL (Not Estab.)
[2023-10-30 04:08] LABS: Complement C3 166 mg/dL (82-167)
== END | disposition home or self-care (01) ==
LOC: LAB 14:13
PROVIDERS: PCP Family Medicine; Referring Provider Internal Medicine Rheumatology; Visit Provider Internal Medicine Rheumatology
DX: R76.0 Raised antibody titer (principal); M25.50 Pain in unspecified joint
CPT/HCPCS: 36415; 73110; 73130; 81002; 82340; 82565; 84450; 84460; 84520; 85025; 85652; 86140; 86160; 86850; 87086; 87088

== ENCOUNTER → 2024-02-04 | Outpatient (CLI) | payer OTHER, SELFPAY ==
--- NOTE | 2024-02-04 13:18 | US_ITS ---
STUDY: THYROID ULTRASOUND REASON FOR EXAM: Female, 53 years old. hx of partial thyroidectomy TECHNIQUE: Ultrasound evaluation of the thyroid was performed with real-time and static medina-scale imaging. COMPARISON: None. FINDINGS: RIGHT LOBE: Status post right lobectomy.. LEFT LOBE: The left lobe of the thyroid gland measures 4.9 x 1.3 x 1.6 cm. There is a homogeneous echotexture. There are no demonstrated solid, cystic or complex lesions. ISTHMUS: The isthmus measures 5 mm thick. . The regional lymph nodes are normal. US/Thyroid IMPRESSION: Normal ultrasound examination of the thyroid after right lobectomy. Electronically Signed: Bob Jiménez MD at 8:44 EDT ,
== END | disposition home or self-care (01) ==
LOC: US 13:17
PROVIDERS: PCP Family Medicine; Referring Provider Nurse Practitioner Family; Visit Provider Nurse Practitioner Family
DX: Z98.890 Other specified postprocedural states (principal)
CPT/HCPCS: 76536

== ENCOUNTER → 2024-04-15 | Outpatient (CLI) | payer OTHER, SELFPAY ==
--- NOTE | 2024-04-15 12:20 | BI_ITS ---
MAMMOGRAPHY - BILATERAL SCREENING REASON FOR EXAM: Female, 53 years old. Routine annual screening examination. PERTINENT HISTORY: Grandmother with breast cancer. TECHNIQUE: Digital bilateral breast verito (3D mammographic acquisition) in the CC and MLO projections. 2-D mediolateral oblique (MLO) and craniocaudad (CC) views of both breasts were obtained. CAD: Full Field Digital Mammography with Computer Added Detection was performed. COMPARISON: Comparison is made with prior study dated March 20, 2023 and February 05, 2022. FINDINGS: Breast Composition: The breasts are heterogeneously dense, which may obscure small masses. There are no dominant masses or suspicious calcifications. Stable bilateral fat containing axillary lymph nodes. The battery pack of a pacemaker is seen in the left axilla. No other significant abnormalities are identified. There has been no significant change since the prior study. BI/SCRN MAMM (CAD)W/VERITO BILAT IMPRESSION: Stable bilateral screening mammogram. Yearly follow-up mammogram recommended. (A) ASSESSMENT CATEGORY: BIRADS Category 2: Benign. A letter regarding these results will be sent to the patient by the facility within 30 days. Approximately 10% of breast cancers are not detected by mammography. A normal mammogram should not delay biopsy of a clinically suspicious abnormality. [id number] Electronically Signed: Chauncey Estrada MD at 13:54 EST ,
[2024-04-15 14:33] LABS: Mucous, Urine 0 SEEN /hpf (<or=2+); Red Blood Cells-Urine 0 SEEN /hpf (0-5); White Blood Cells 0 SEEN /hpf (0-5)
[2024-04-15 15:25] LABS: Color, Urine Yellow (Yellow); Glucose, Dipstick Normal (Normal); Ketone-Dipstick Negative (Negative); Leukocyte Esterase-Dipstick Negative /ul (Negative); Nitrite-Dipstick Negative (Negative); Occult Blood-Urine Negative /ul (Negative); Protein-Dipstick Negative (Negative); Urine Bilirubin Dipstick Negative (Negative); Urine Clarity Clear (Clear); Urine Urobilinogen Normal (Normal); Urine pH 6.5 (5.0 - 8.0)
[2024-04-15 15:29] LABS: Absolute Lymphocyte Count 1.22 X10^3/uL (0.83-4.51); Absolute Neutrophil Count 5.4 X10^3/uL (2.0-7.7); Basophil# 0.06 X10^3/uL; Basophil% 0.8 % (0-1); Eosinophil# 0.36 X10^3/uL; Eosinophils% 4.7 % (0-5); Hematocrit 40.3 % (37-47); Hemoglobin 13.4 g/dL (12.0-15.0); Lymphocyte # 1.22 X10^3/ul (0.83-4.51); Lymphocyte % 16.1 % (19-41); Mean Corp Hgb Conc 33.3 g/dL (32-36); Mean Corpuscular Hgb 29.7 pg (27.0-32.0); Mean Corpuscular Volume 89.4 fL (81-99); Mean Platelet Vol. 9.6 fl (6.2-12.0); Monocyte# 0.49 X10^3/uL; Monocyte% 6.5 % (0-10); NRBC Flagged by Analyzer 0 % (0-5); Neutrophil # 5.43 X10^3/uL (2.7-7.7); Neutrophil % 71.5 % (47-70); Platelet Count 334 K/mm3 (150-450); RBC Distribution Width CV 12.4 % (11.6-14.6); RBC Distribution Width SD 40.6 fl (35.1-43.9); Red Blood Count 4.51 M/mm3 (4.2-5.4); White Blood Count 7.6 K/mm3 (4.4-11.0)
[2024-04-15 15:40] LABS: Bacteria 1+ /hpf (None Seen); Squamous Epithelial Cells - UA 0-5 SEEN /hpf (5-10)
[2024-04-15 15:48] LABS: Vitamin D,25 Hydroxy 29.7 ng/mL
[2024-04-15 15:54] LABS: ALB/GLOB Ratio 0.9 RATIO (0.9-2.4); AST(SGOT) 20 U/L (15-37); Alanine Aminotransfer ALT/SGPT 29 U/L (13-56); Albumin, Serum 3.5 g/dL (3.2-5.0); Alkaline Phosphatase 82 U/L (45-117); Anion Gap 2 (5-15); BUN 10 mg/dL (7-18); BUN/Creat Ratio 14.7 RATIO (10-20); Chloride 104 mmol/L (98-107); Cholesterol 176 mg/dL (200); Creatinine, Serum 0.68 mg/dL (0.55-1.02); EST Glomerular Filtration Rate 96 mL/min (>60); Est Glom Filt Rate - Afr Amer 116 mL/min (>60); Glucose 77 mg/dL (74-106); High Density Lipoprotein 56 mg/dL; Potassium 3.7 mmol/L (3.5-5.1); Protein, Total 7.5 g/dL (6.4-8.2); Sodium Level 138 mmol/L (136-145); T4 Free Direct 1.04 ng/dL (0.76-1.46); Triglycerides 166 mg/dL; Very Low Density Lipoprotein 33 mg/dL (5-40)
[2024-04-15 17:07] LABS: Erythrocyte Sedimentation Rate 8 mm/hr (0-30)
[2024-04-20 09:22] LABS: Anti-dsDNA Ab <1 IU/mL (0-9); Complement C3 163 mg/dL (82-167)
== END | disposition home or self-care (01) ==
PROVIDERS: Internal Medicine Endocrinology, Diabetes & Metabolism; Nurse Practitioner Family; PCP Family Medicine; Referring Provider Nurse Practitioner Family; Visit Provider Nurse Practitioner Family
DX: Z12.31 Encounter for screening mammogram for malignant neoplasm of breast (principal); E11.65 Type 2 diabetes mellitus with hyperglycemia; Z79.4 Long term (current) use of insulin; Z80.3 Family history of malignant neoplasm of breast; R76.0 Raised antibody titer; E55.9 Vitamin D deficiency, unspecified; E78.2 Mixed hyperlipidemia
CPT/HCPCS: 36415; 77063; 77067; 80053; 80061; 81001; 82306; 84439; 84443; 85025; 85652; 86140; 86160; 86225

== ENCOUNTER → 2024-08-31 | Outpatient (CLI) | payer OTHER, SELFPAY ==
--- NOTE | 2024-08-31 13:34 | CT_ITS ---
PROCEDURE: CHEST WITH CONTRAST 08/31/2024 REASON FOR EXAM: ABNORMAL FINDINGS TECHNIQUE: Axial chest CT with intravenous contrast. Coronal and Sagittal reconstruction series were provided. One or more dose reduction techniques were used (e.g., Automated exposure control, adjustment of the mA and/or kV according to patient size, use of iterative reconstruction technique). FINDINGS: Hardware: Left subclavian pacemaker. Lymph nodes: Unremarkable. Heart and Vasculature: No cardiomegaly. No thoracic aortic aneurysm. Lungs and Airways: No pneumonia, atelectasis, nodule, or mass. Pleura: No pleural effusion. Upper Abdomen: Status post cholecystectomy. Bones: Unremarkable. CT/Chest WITH Contrast IMPRESSION: Coronary artery calcification (CAC) is was not evaluable NO ACUTE FINDINGS ON CONTRAST-ENHANCED CHEST CT. Reading Location: [id number]
[2024-08-31 14:24] LABS: CREATININE FINGERSTICK < 1.0 mg/dL (0.55-1.02); EGFR FINGERSTICK > 60.0000 mL/min (>60)
== END | disposition home or self-care (01) ==
LOC: CT 13:32
PROVIDERS: PCP Family Medicine; Referring Provider Family Medicine; Visit Provider Family Medicine
DX: R68.89 Other general symptoms and signs (principal)
CPT/HCPCS: 71260; Q9967

== ENCOUNTER 2024-10-09 10:44 | Emergency (ER) | payer OTHER, SELFPAY ==
[2024-10-09 10:44] VITALS: BP 147/80; PULSE 72; RESP 14; TEMP 36.4; O2SAT 98
--- NOTE | 2024-10-09 11:09 | VDLE_ITS ---
Reason For Study Reason For Study: RLE PAin / Swelling RIGHT LEFT GSV is normal. CFV is compressible, spontaneous, phasic, competent, CFV is compressible, spontaneous, phasic, competent and demonstrates normal augmentation. and demonstrates normal augmentation. FV is compressible, spontaneous, phasic, competent and demonstrates normal augmentation. POP V is compressible, spontaneous, phasic, competent and demonstrates normal augmentation. T/P Trunk is compressible. PTV is compressible. RT PerV is compressible. Anechoic Nonvascularized area measuring approximately 5.23cm x 1.76cm noted in Rt Pop Fossa. Procedure This is a venous duplex using B-mode, color flow and spectral Doppler. Exam performed portable in ED. The exam was diagnostic. A preliminary report was called and/or faxed to Dr. Doe. VL/Venous Duplex US, Unilateral Interpretation Summary Deep veins of the right lower extremity are patent and compressible segmentally . There is no evidence of right lower extremity deep vein thrombosis. Valvular competence appears intact within the p roximal deep venous system on the right . The right great saphenous vein appears patent and compressible segmentally. A n on-vascular, anechoic structure is noted in the right popliteal space, measuring 5.23 cm x 1.76 cm. This probably repres ents a popliteal cyst. Clinical correlation is advised. The left common femoral vein is patent and compressible . Ordering Physician: Marcello Doe Referring Physician: Elmer Richards MD Performed By: Yadiel Jensen RVT
--- NOTE | 2024-10-09 11:28 | EX.ED.DYSGE1 ---
HPI History of Present Illness Chief Complaint: Edema Detail of Chief Complaint: Right leg pain and swelling and respiratory symptoms Informant: patient Onset/Context/Timing Onset: Days (Cough and congestion started 3 days ago) and Weeks (Leg pain and swelling started approximate week ago) Context: Sudden Onset Timing: Continuous (Leg pain has been constant located proximal calf popliteal fossa) and Intermittent (Respiratory symptoms been intermittent) Quality: Pain Location: Posterior leg on the right Current Severity: Mild Maximum Severity: Moderate Worsened by: Palpation Relieved by: Nothing Associated Symptoms Associated Symptoms: HPI narrative Narrative Narrative: Patient is a 54-year-old woman. She is status post microdiscectomy beginning of August L4-L5 for herniated disc. She contacted her surgeon. Because she has been complaining of leg pain swelling and reported shortness of breath he recommended she come to the emergency room for evaluation. She denies fever, chills night sweats. She denies rhinorrhea or postnasal drainage. She denies sore throat. Her cough is nonproductive. She denies chest pressure, tightness or heaviness. She denies pleuritic chest pain. She denies GI symptoms. She denies prior history of DVT or PE. She is presently on a baby aspirin. She is on no anticoagulant. Prior similar symptoms: No Recent Illness/Hospitalization: Yes [facility] Medical History Preop cardiovascular exam Edema of both upper extremities Lupus (systemic lupus erythematosus) Nonsustained monomorphic ventricular tachycardia Pacemaker lead malfunction Coronary-myocardial bridge Obesity Anxiety Thyroid disease Rheumatoid arthritis Anemia Easy bruising Excessive bleeding Migraine headache Back pain Hx of vertigo Multiple sclerosis Dietary restriction Former smoker Shortness of breath on exertion History of pain when walking History of edema Cardiology follow-up encounter Mobitz type 2 second degree AV block Arthritis Seasonal allergies Coronary-myocardial bridge Abnormal electrocardiogram Vitamin D deficiency Hypothyroidism Essential (primary) hypertension Spinal stenosis Uncontrolled diabetes mellitus with microalbuminuria Type 2 diabetes mellitus Cervicalgia Hyperlipidemia Insomnia Right bundle branch block (RBBB) Home Medications ?Medication ?Instructions ?Recorded ?Last Taken ?Type tizanidine 4 mg capsule 4 mg PO QHS muscle spasms 01/16/21 Unknown History lancing device with lancets kit #1 ea 03/11/23 Unknown Rx (Accu-Chek FastClix Lancing Device kit) blood sugar diagnostic (Accu-Chek #150 ea 07/08/23 Unknown Rx Guide test strips) blood-glucose meter (Accu-Chek #1 ea 07/08/23 Unknown Rx Guide Glucose Meter) lancets (Accu-Chek Fastclix Lancet #200 ea 07/08/23 Unknown Rx Drum) aspirin 81 mg tablet,delayed 81 mg PO DAILY 07/12/23 Unknown History release (Adult Low Dose Aspirin) rosuvastatin 5 mg tablet 5 mg PO DAILY #90 tabs 11/22/23 Unknown Rx diclofenac sodium 50 mg 50 mg PO TID 01/01/24 Unknown History tablet,delayed release semaglutide 0.25 mg or 0.5 mg (2 0.5 mg (0.736 mL) subcut QWEEK #3 01/01/24 Unknown Rx mg/3 mL) subcutaneous pen injector mL (Ozempic) insulin lispro 100 unit/mL 15 unit (0.15 mL) subcut TID #40.5 05/11/24 Unknown Rx subcutaneous pen (Humalog KwikPen mL (U-100) Insulin) blood-glucose sensor (FreeStyle #2 ea 05/18/24 Unknown Rx Luis Miguel 3 Sensor device) modafinil 200 mg tablet 200 mg PO QDAY 05/18/24 Unknown History sertraline 50 mg tablet 50 mg PO QDAY 05/18/24 Unknown History levothyroxine 150 mcg tablet 150 mcg PO DAILY thyroid #90 tabs 05/28/24 Unknown Rx pen needle, diabetic 32 gauge x #400 ea 07/03/24 Unknown Rx 5/32 (BD Ultra-Fine Rin Pen Needle) cholecalciferol (vitamin D3) 50 50 mcg PO QDAY #90 caps 07/15/24 Unknown Rx mcg (2,000 unit) capsule carvedilol 25 mg tablet 12.5 mg (1/2 x 25 mg) PO BID #60 07/28/24 Unknown Rx tabs losartan 50 mg tablet 50 mg PO QDAY #180 tabs 07/28/24 Unknown Rx blood sugar diagnostic (True #50 ea 08/04/24 Unknown Rx Metrix Glucose Test Strip) blood-glucose meter (True Metrix #1 ea 08/04/24 Unknown Rx Glucose Meter) lancets 30 gauge (BD Microtainer #100 ea 08/04/24 Unknown Rx Lancet) acetaminophen 500 mg tablet 1,000 mg PO BID PRN 08/06/24 Unknown History (Tylenol Extra Strength) diroximel fumarate 231 mg 462 mg PO BID 08/06/24 Unknown History capsule,delayed release (Vumerity) gabapentin 600 mg tablet 600 mg PO BID 08/06/24 Unknown History hydrochlorothiazide 25 mg tablet 25 mg PO DAILY this is a dose 09/21/24 Unknown Rx increase #90 tabs insulin glargine 100 unit/mL (3 32 unit (0.32 mL) subcut QAM #30 mL 09/23/24 Unknown Rx mL) subcutaneous pen (Lantus Solostar U-100 Insulin) Allergy/AdvReac Type Severity Reaction Status Date / Time glatiramer (copolymer 1) Allergy Severe hypotension, Verified 10/09/24 10:45 (From Copaxone) shaking, irregular breathing empagliflozin (From Allergy Intermediate yeast Verified 10/09/24 10:45 Jardiance) infection codeine Allergy Anaphylaxis Verified 10/09/24 10:45 Penicillins Allergy rash Verified 10/09/24 10:45 amlodipine AdvReac Intermediate Swelling Verified 10/09/24 10:45 in shins and ankles ached erythromycin base (From AdvReac Unknown Verified 10/09/24 10:45 Erythrocin) hydrocodone (From Vicodin) AdvReac syncope Verified 10/09/24 10:45 ketorolac (From Toradol) AdvReac anxious Verified 10/09/24 10:45 Family History Other Adopted Surgical History History of permanent cardiac pacemaker placement (02/06/21) History of cardiac catheterization History of left heart catheterization (07/30/18) Hx of cholecystectomy History of carpal tunnel release History of hysterectomy History of parathyroidectomy H/O partial thyroidectomy Social History adopted: Yes household members: spouse and children current occupational status: employed 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 [employer] Smoking Status: Former smoker quit date: 05/06/96 pack-years: 2 alcohol intake: never substance use type: does not use caffeine: Yes what type of physical activity do you participate in: none frequency: daily ROS ROS ED Constitutional Constitutional ED: Denies chills, fever(s), subjective, sweats or weight loss Eyes Eyes: Denies blurry vision or change in vision ENT ENT ED: Denies rhinorrhea or sore throat Cardiovascular Cardiovascular: Denies chest pain, orthopnea, palpitations, paroxysmal nocturnal dyspnea or racing heartbeat Respiratory/Chest Respiratory/Chest: Reports cough and dyspnea; Denies dyspnea on exertion, orthopnea, paroxysmal nocturnal dyspnea or sputum Gastrointestinal Gastrointestinal: Denies abdominal pain, nausea or vomiting Musculoskeletal Musculoskeletal: Reports other Details: Posterior right lower extremity pain, leg ; Denies back pain Integumentary Denies rash Neurologic Neurologic: Denies headache(s) or paresthesias Hematologic/Lymphatic Hematologic/Lymphatic: Reports systems reviewed and no addt'l complaints, except as documented EXAM Physical Exam Const Vital Signs: 10/09/24 10:44 10/09/24 10:44 Temperature 97.5 F L Temperature Source Temporal Pulse Rate 72 Respiratory Rate 14 Respiratory Effort Normal Non-Labored Respiratory Pattern Normal Blood Pressure 147/80 H Blood Pressure Mean 102 Pulse Ox 98 Oxygen Delivery Method Room Air Positive well nourished and well developed Constitutional Narrative: Blood pressure slightly elevated. Patient not tachypneic nor is she hypoxic. General Appearance ED: well developed and pallor HEENT Reports moist mucous membranes HEENT Narrative: Head is atraumatic normocephalic. Ears normal. Nares patent. Posterior pharynx is normal Eyes PERRL and EOMs intact bilaterally General Eye ED: Negative for pale conjunctiva or scleral icterus Neck no lymphadenopathy, supple and no JVD Chest Wall inspection of chest normal and palpation of chest normal Resp normal respiratory effort and clear to auscultation bilaterally Cardio regular rate, regular rhythm, S1 normal heart sound, S2 normal heart sound and no murmurs GI normal to inspection, nondistended, normoactive bowel sounds and non-tender Extremity Negative for normal to inspection Extremity Narrative: There is swelling of the right lower extremity. There is pain along the distribution deep venous system i.e. proximal calf, popliteal fossa and abductor canal. There is question of some leg vein distention. Patient is on baby aspirin because she has a history of lupus anticardiolipin. She states if she ever has a blood clot she will be on anticoagulant for life. Patient also reports cough and shortness of breath started 3 days ago. Cough is nonproductive. She denies fever or chills. She denies any other symptoms. General Extremety ED: Yes tenderness; Negative for edema General Extremity: Negative for edema Neuro oriented x3, CN's II-XII intact bilaterally and no sensory deficits noted Sensorium / Orientation: alert Motor Exam: strength 5/5 throughout Psych mental status grossly normal Skin no rashes or lesions noted, no wounds and skin turgor normal General Skin Exam: pallor; Negative for elasticity normal or jaundice MDM MDM MDM Narrative Medical decision making narrative: Light of the fact the patient is status post surgery not been as active as atraumatic right leg swelling with pain palpation along the distribution deep venous system and has a Wells score of 2 patient's moderate pretest probability for DVT. Venous duplex study was ordered. Because she reports upper respiratory symptoms with cough a chest x-ray was obtained to assess for pneumonia. Prior records were reviewed. Last ER visit was February 2021. Patient's final diagnosis was noncardiac chest pain. She also had AV block. She does have a pacemaker. History & Record Review Additional record(s) reviewed:: Prior ED visit and Prior labs Lab Data Attestation: I reviewed the patient's lab results. Lab results narrative: CBC is unremarkable. Basic metabolic panel reveals a glucose of 255 with a normal CO2 anion gap. Patient does have history of diabetes. She is on insulin. Labs: Laboratory Results - last 24 hr 10/09/24 11:19 WBC 7.2 RBC 4.30 Hgb 12.9 Hct 37.8 MCV 87.9 MCH 30.0 MCHC 34.1 RDW Std Deviation 40.5 RDW Coeff of George 12.6 Plt Count 264 MPV 9.4 Immature Gran % (Auto) 0.300 Neut % (Auto) 74.5 H Lymph % (Auto) 11.2 L [place] % (Auto) 5.7 Eos % (Auto) 7.9 H Baso % (Auto) 0.4 Absolute Neuts (auto) 5.4 Absolute Lymphs (auto) 0.81 L Nucleated RBC % 0 Sodium 139 Potassium 4.0 Chloride 102 Carbon Dioxide 27.6 Anion Gap 9 BUN 10 Creatinine 0.64 L Est GFR (MDRD) Non-Af 105 BUN/Creatinine Ratio 15.4 Glucose 255 H Calcium 9.1 Venous duplex study reveals a Haji's cyst. There is no evidence of DVT. Radiography Chest X-Ray - ED: 2 View and Read by ED Physician (2 view chest x-ray reveals hyperinflation. There is no obvious infiltrate and there is no effusion. Patient has dual-chamber pacemaker noted. Mediastinum appears unremarkable. Osseous structures with no acute process.) Diagnostic Testing: Clinical Impression(s) from Imaging Studies Chest X-Ray 10/09/24 12:10 IMPRESSION: Examination limited by AP portable technique, hypoinflation, body habitus, and patient motion. A left thoracic transvenous pacemaker with atrial and ventricular leads remains in place. Although lungs are hypoinflated, no acute pneumonic process is appreciated. No pleural effusion or pneumothorax is seen. The cardiomediastinal silhouette is stable, without evidence of cardiomegaly. Mild thoracic spine degenerative changes are seen. Reading Location: [address] Treatment and Re-Evaluation :: Patient was informed the results. She is discharged to home. Discharge Plan Triage Chief Complaint: Edema ED Provider: Marcello Doe Dx/Rx/DC Orders Clinical Impression: Synovial cyst of popliteal space [Haji], right knee, Mobitz type 2 second degree AV block, History of permanent cardiac pacemaker placement, Lupus (systemic lupus erythematosus), Acute upper respiratory infection, Type 1 diabetes mellitus with hyperglycemia Instructions: ED Haji's Cyst, ED URI, Viral, No Abx (Adult) Prescriptions: No Action Vumerity 231 mg capsule,delayed release(DR/EC) 462 mg PO BID aspirin [Adult Low Dose Aspirin] 81 mg tablet,delayed release (DR/EC) 81 mg PO DAILY diclofenac sodium 50 mg tablet,delayed release (DR/EC) 50 mg PO TID Ozempic 0.25 mg or 0.5 mg (2 mg/3 mL) pen injector 0.5 mg subcut QWEEK Qty: 3 5RF modafinil 200 mg tablet 200 mg PO QDAY sertraline 50 mg tablet 50 mg PO QDAY (DME) FreeStyle Luis Miguel 3 Sensor Device See Rx Instructions .Route Qty: 2 5RF Rx Instructions: 1 sensor q 14 days gabapentin 600 mg tablet 600 mg PO BID acetaminophen [Tylenol Extra Strength] 500 mg tablet 1,000 mg PO BID PRN tizanidine 4 mg Capsule 4 mg PO QHS (DME) lancing device with lancets [Accu-Chek FastClix Lancing Dev] Kit See Rx Instructions .Route Qty: 1 0RF Rx Instructions: As directed (DME) blood-glucose meter [Accu-Chek Guide Glucose Meter] Misc See Rx Instructions .Route Qty: 1 0RF Rx Instructions: As directed (DME) Accu-Chek Guide test strips Strip See Rx Instructions .Route Qty: 150 6RF Rx Instructions: 4 times daily (DME) lancets [Accu-Chek Fastclix Lancet Drum] Misc See Rx Instructions .Route Qty: 200 3RF Rx Instructions: 4 times per day rosuvastatin 5 mg tablet 5 mg PO DAILY Qty: 90 3RF insulin lispro [Humalog KwikPen Insulin] 100 unit/mL insulin pen 15 unit subcut TID Qty: 40.5 1RF levothyroxine 150 mcg tablet 150 mcg PO DAILY Qty: 90 1RF (DME) pen needle, diabetic [BD Ultra-Fine Rin Pen Needle] 32 gauge x 5/32 needle See Rx Instructions .ROUTE .MEDSUPPLY Qty: 400 3RF Rx Instructions: 4 times daily cholecalciferol (vitamin D3) 50 mcg (2,000 unit) capsule 50 mcg PO QDAY Qty: 90 3RF losartan 50 mg tablet 50 mg PO QDAY Qty: 180 3RF carvedilol 25 mg tablet 12.5 mg PO BID Qty: 60 11RF Rx Instructions: must administer with a meal/food (DME) blood-glucose meter [True Metrix Glucose Meter] Misc See Rx Instructions .Route Qty: 1 0RF Rx Instructions: As directed (DME) True Metrix Glucose Test Strip Strip See Rx Instructions .Route Qty: 50 8RF Rx Instructions: daily as backup to CGM (DME) lancets [BD Microtainer Lancet] 30 gauge misc See Rx Instructions .Route Qty: 100 3RF Rx Instructions: daily hydrochlorothiazide 25 mg tablet 25 mg PO DAILY Qty: 90 3RF insulin glargine [Lantus Solostar U-100 Insulin] 100 unit/mL (3 mL) insulin pen 32 unit subcut QAM Qty: 30 1RF Primary Care Provider: Elmer Richards Referrals: Elmer Richards MD [Primary Care Provider] - As Needed Activity Restrictions/Additional Instructions: Recommend contacting your orthopedic surgeon regarding the Haji's cyst. Your blood sugar was elevated to 2 and 55. Print Language: Bangladeshi Disposition Disposition: Home, Self Care
[2024-10-09 11:32] LABS: Absolute Lymphocyte Count 0.81 X10^3/uL (0.83-4.51); Absolute Neutrophil Count 5.4 X10^3/uL (2.0-7.7); Basophil# 0.03 X10^3/uL; Basophil% 0.4 % (0-1); Eosinophil# 0.57 X10^3/uL; Eosinophils% 7.9 % (0-5); Hematocrit 37.8 % (37-47); Hemoglobin 12.9 g/dL (12.0-15.0); Lymphocyte # 0.81 X10^3/ul (0.83-4.51); Lymphocyte % 11.2 % (19-41); Mean Corp Hgb Conc 34.1 g/dL (32-36); Mean Corpuscular Volume 87.9 fL (81-99); Mean Platelet Vol. 9.4 fl (6.2-12.0); Monocyte# 0.41 X10^3/uL; Monocyte% 5.7 % (0-10); NRBC Flagged by Analyzer 0 % (0-5); Neutrophil # 5.39 X10^3/uL (2.7-7.7); Neutrophil % 74.5 % (47-70); Platelet Count 264 K/mm3 (150-450); RBC Distribution Width CV 12.6 % (11.6-14.6); RBC Distribution Width SD 40.5 fl (35.1-43.9); White Blood Count 7.2 K/mm3 (4.4-11.0)
[2024-10-09 11:51] LABS: Anion Gap 9 (5-15); BUN 10 mg/dL (4-19); BUN/Creat Ratio 15.4 RATIO (10-20); Calcium,Total 9.1 mg/dL (7.6-11.0); Carbon Dioxide 27.6 mmol/L (21.0-32.0); Chloride 102 mmol/L (98-108); Creatinine, Serum 0.64 mg/dL (0.70-1.20); EST Glomerular Filtration Rate 105 (>60); Glucose 255 mg/dL (70-99); Sodium Level 139 mmol/L (133-145)
--- NOTE | 2024-10-09 12:10 | RAD_ITS ---
PROCEDURE: CHEST PA AND LATERAL 10/09/2024 REASON FOR EXAM: UPPER RESPIRATORY SYMPTOMS WITH SHORTNESS OF BREAT TECHNIQUE: Frontal and lateral views of the chest. COMPARISON: PA and lateral chest x-ray 03/12/2023. RAD/Chest PA and Lateral IMPRESSION: Examination limited by AP portable technique, hypoinflation, body habitus, and patient motion. A left thoracic transvenous pacemaker with atrial and ventricular leads remains in place. Although lungs are hypoinflated, no acute pneumonic process is appreciated. No pleural effusion or pneumothorax is seen. The cardiomediastinal silhouette is stable, without evidence of cardiomegaly. Mild thoracic spine degenerative changes are seen. Reading Location: [id number]
[2024-10-09 12:44] VITALS: BP 132/84; PULSE 71; RESP 16; O2SAT 99
[2024-10-09 12:48] VITALS: BP 132/84; PULSE 71; RESP 16; TEMP 36.2; O2SAT 99
== END 2024-10-09 12:49 | disposition home or self-care (01) ==
PROVIDERS: Emergency Provider Emergency Medicine; PCP Family Medicine; Visit Provider Emergency Medicine
DX: M79.604 Pain in right leg (principal); Z79.4 Long term (current) use of insulin; M79.89 Other specified soft tissue disorders; M71.21 Synovial cyst of popliteal space [Baker], right knee; E78.5 Hyperlipidemia, unspecified; Z87.891 Personal history of nicotine dependence; I10 Essential (primary) hypertension; Z95.0 Presence of cardiac pacemaker; I44.1 Atrioventricular block, second degree; Z90.710 Acquired absence of both cervix and uterus; Z90.49 Acquired absence of other specified parts of digestive tract; J06.9 Acute upper respiratory infection, unspecified; Z79.899 Other long term (current) drug therapy; Z79.85 Long-term (current) use of injectable non-insulin antidiabetic drugs; E03.9 Hypothyroidism, unspecified; Z79.890 Hormone replacement therapy; F41.9 Anxiety disorder, unspecified
CPT/HCPCS: 71046; 80048; 85025; 93971; 99283; A4216

== ENCOUNTER → 2025-04-28 | Outpatient (CLI) | payer OTHER, SELFPAY ==
--- NOTE | 2025-04-28 12:33 | RAD_ITS ---
PROCEDURE: CHEST PA AND LATERAL 04/28/2025 REASON FOR EXAM: COUGH AND BRONCHITIS TECHNIQUE: Procedure Code: RADCXR Modality: DX Procedure: CHEST PA AND LATERAL COMPARISON: 10/09/24 FINDINGS: Left chest pacer. Diffuse reticular opacities may reflect pulmonary interstitial edema versus atypical pneumonia. Right upper lobe opacity may reflect aspiration/atelectasis/pneumonia. No pleural effusion or pneumothorax. Cardiac silhouette is within normal limits. No acute fractures. RAD/Chest PA and Lateral IMPRESSION: Diffuse reticular opacities may reflect pulmonary interstitial edema versus aty pical pneumonia. Right upper lobe opacity may reflect aspiration/atelectasis/pneumonia. Reading Location: [id number]
--- OUTSIDE RECORDS SUMMARY | 2025-04-28 12:49 | XMS RPT_ITS | CCD ---
Author Organization [facility] Care Team Providers Care Music Engineer Name Role Phone ELMER RICHARDS MD Primary Care Physician ([facility] [place])[phone] Mara Betancourt Unavailable Unavailable Samples Painter Barrel, Amy Unavailable Unavailable Alysia Winkler Unavailable Unavailable Dr. Elmer Richards Primary Care Provider 1([facility] [phone] Michael Liu Attending Provider 1([facility] [phone] Michael Liu Referring Provider 1([facility] [phone] Elmer Richards Referring Provider 1([facility] [place])[phone] Garrison TUNGSTEN TENDERMIGUEL Attending Provider 1([facility] [place])[phone] ELMER RICHARDS MD Primary Care Physician ([facility] [place])[phone] Elmer Richards Primary Care Provider 1([facility] [phone] Elmer Richards Referring Provider 1([facility] [place])[phone] Michael Liu Attending Provider 1([facility] [place][phone] MIGUEL Lnyn Attending Provider 1([facility] [place])[phone] Dr. Elmer Richards Primary Care Provider 1([facility] [place])[phone] Elmer Richards Referring Provider 1([facility] [place])[phone] Michael Liu Attending Provider 1([facility] [place])[phone] Roof TUNGSTEN TENDERMIGUEL Attending Provider 1([facility] [place])[phone] MIGUEL Lynn Attending Provider 1([facility] [place])[phone] Dr. Elmer Richards Primary Care Provider 1([facility] [phone] Elmer Richards Referring Provider 1([facility] [place])[phone] Jami Lopez Attending Provider Unavailable Dr. Michael Liu Attending Provider 1([facility])-[phone] MIGUEL Lynn Attending Provider Dr. Elmer Richards Referring Provider Dr. Elmer Richards Primary Care Provider [phone] Jamil WAGNER, [place] Milvia Miller Attending Provider Dr. Elmer Richards Referring Provider MIGUEL Lynn Attending Provider Dr. Elmer Richards Primary Care Provider [phone] Jamil [place]AG[place], [place] Milvia Miller Attending Provider Dr. Deidre Stanley Attending Provider [phone] Jami Lopez Attending Provider Unavailable Elmer Richards MD Primary Care Provider [phone] Sushil Galvan Unavailable Michael Liu MD Unavailable Elmer Richards MD Primary Care Provider Elmer Richards MD Primary Care Provider Group, [facility] Unavailable Dr. Elmer Richards Primary Care Provider [phone] Michael Liu Attending Provider [phone] Elmer Richards Referring Provider [phone] MIGUEL Lynn Attending Provider [phone] Jamil WAGNER, [place] Milvia Miller Attending Provider Elmer Richards MD Primary Care Provider Dr. Elmer Richards Primary Care Provider [phone] Michael Liu Attending Provider Milan MCLAIN, Ivan uMstafa Unavailable ELMER RICHARDS MD A Primary Care Unavailable DICK MCLAIN, DR CHRISTINA Webster Attending Cecile JENNINGS MD, DR CHRISTINA Webster Attending ELMER Solis MD A Primary Care Unavailable RJ WHALEY MD Attending Unavailable ELMER RICHARDS MD Primary Care Unavailable RJ WHALEY MD Attending Unavailable RICHARDS MD, ELMER A Primary Care Unavailable ANNA MCLAIN, ELMER A Primary Care Unavailable NANA MCLAIN, ELMER A Attending Unavailable SISI DIAZ Attending Cecile RICHARDS MD, ELMER A Primary Care Unavailable ANNA MCLAIN, ELMER A Primary Care Unavailable ARIANNE PA-C, BERNARD Hill Attending Unavailable ANNA MCLAIN, ELMER A Primary Care Unavailable IVAN SEVERINO MD Attending Unavailable ANNA MCLAIN, ELMER A Primary Care Unavailable HEAVENLY BARNES, CORNELL Pina Attending IONA Vigil MD Attending Unavail gracia RICHARDS MD, ELMER A Primary Care Unavailable ANNA MCLAIN, ELMER A Primary Care Unavailable ARIANNE WAGNER-C, BERNARD Hill Attending Unavailable HEAVENLY BARNES, CORNELL Pina Attending Nancy RICHARDS MD, ELMER A Primary Care Unavailable HEAVENLY BARNES, CORNELL Pina Attending Nancy RICHARDS MD, ELMER A Primary Care Unavailable IONA URRUTIA MD Attending Unavail gracia RICHARDS MD, ELMER A Primary Care Unavailable DICK MCLAIN, DR CHRISTINA Webster Attending Cecile RICHARDS MD, ELMER A Primary Care Unavailable ANNA MCLAIN, LEMER A Primary Care Unavailable HEAVENLY BARNES, CORNELL Pina Attending Nancy RICHARDS MD, ELMER A Primary Care Unavailable ARIANNE MCKENNA, BERNARD iHll Attending Unavailable IONA URRUTIA MD Attending Unavail able ANNA MCLAIN, ELMER A Primary Care Unavailable ANNA MCLAIN, ELMER A Primary Care Unavailable DICK MCLAIN, DR CHRISTINA Webster Attending IONA Alegria MD Attending Unavail able ANNA MCLAIN, ELMER A Primary Care Unavailable Group, [facility] Unavailable Unavailable TATO CARRANZA MD Attending Unavailable ANNA MCLAIN, ELMER A Primary Care Unavailable ANNA MCLAIN, ELMER A Primary Care Unavailable MARQUITA MOREIRA Attending Unavail gracia RICHARDS MD, ELMER A Primary Care Unavailable IVAN SEVERINO MD Attending Unavailable TATO CARRANZA MD Attending Unavailable ANNA MCLAIN, ELMER A Primary Care Unavailable ANNA MCLAIN, ELMER A Primary Care Unavailable TATO CARRANZA MD Attending Unavailable ANNA MCLAIN, ELMER A Primary Care Unavailable IVAN SEVERINO MD Attending Unavailable TATO CARRANZA MD Attending Unavailable ANNA MCLAIN, ELMER A Primary Care Unavailable MARQUITA MOREIRA Attending Unavail able Unavailable Primary Care Provider UnavailVLADIMIR Smith Referring Unavaila ble ARMAN DO, ADELINE Admitting Unavailable RICHARDS, ELMER A Primary Care Unavailable JOE MCLAIN, TYLER Consulting Unavailable Anna MCLAIN, Dr. Payne Primary Care Provider Noe MCLAIN, Dr. Rodriguez Attending Provider [phone] Elmer Richards MD Referring Provider [phone] Garrison TUNGSTEN TENDER-Giovanni Sahni Attending Provider Anna MCLAIN, Dr. Payne Attending Provider [phone] Nader MCLAIN, Dr. Armendariz Emergency Provider [phone] Everette MCLAIN, Dyana Unavailable KING CHEMO, ZINA Miller Attending Unavailable ELMER RICHARDS MD Primary Care Unavailable ANNA MCLAIN, ELMER Pina Primary Care Unavailable JUDD MCLAIN, RJ Miller Attending Unavailable ANNA MCLAIN, ELMER A Primary Care Unavailable IVAN SEVERINO MD Attending Unavailable Dr. Elmer Richards MD Primary Care Provider Noe MCLAIN, Dr. Rodriguez Attending Provider [phone] Marcello Doe MD Attending Provider Naveen MCLAIN, Dr. Major Pina Attending Provider Nader MCLAIN, Dr. Armendariz Referring Provider Jami Lopez Attending Provider Unavailable Paresh Dior Attending Provider Shane TUNGSTEN TENDER-Josey Sahni Attending Provider Anna MCLAIN, Dr. Payne Primary Care Provider Dr. Elmer Richards MD Referring Provider DYANA MORAN Referring Unavailable RICHARDS, ELMER A Primary Care Unavailable MORANDYANA Attending Unavailable RICHARDS, ELMER A Primary Care Unavailable RICHARDS, ELMER A Primary Care Unavailable MORANDYANA KERR Attending Unavailable RICHARDS, ELMER A Primary Care Unavailable MORAN, DYANA Referring Unavailable RICHARDS, ELMER A Primary Care Unavailable LYNDSEY HEDRICK Attending Unavailab mir RICHARDS, ELMER A Primary Care Unavailable AYAAN MORELAND Referring Unavailable RICHARDS, ELMER A Primary Care Unavailable AYAAN MORELAND Attending Unavailable MACKI, MOHAMED Referring Unavailable RICHARDS, ELMER A Primary Care Unavailable AYAAN MORELAND Attending Unavailable RICHRADS, ELMER A Primary Care Unavailable MUSHKAT CONOMY, LYNDSEY H Attending Unavailab le MUSHKAT CONOMY, LYNDSEY H Attending Unavailab le RICHARDS, ELMER A Primary Care Unavailable MUSHKAT CONOMY, LYNDSEY H Attending Unavailab le RICHARDS, ELMER A Primary Care Unavailable RICHARDS, ELMER A Primary Care Unavailable MUSHKAT CONOMY, LYNDSEY H Attending Unavailab le RICHARDS, ELMER A Primary Care Unavailable MUSHKAT CONOMY, LYNDSEY H Attending Unavailab le RICHARDS, ELMER A Primary Care Unavailable MUSHKAT CONOMY, LYNDSEY H Attending Unavailab le RICHARDS, ELMER A Primary Care Unavailable AYAAN MORELAND Attending Unavailable RICHARDS, ELMER A Primary Care Unavailable SHAWN EVERETT Admitting Unavailable SHAWN EVERETT Attending Unavailable Richards, Elmer Primary Care Unavailable Richards, Elmer Referring Unavailable Giovanni Ji NP Attending Unavailable Richards, Elmer Primary Care Unavailable Noe, [place] Attending Unavailable Richards, Elmer Primary Care Unavailable Noe, Michael Attending Unavailable Paresh Ramos Attending Unavailable Richards, Elmer Primary Care Unavailable Richards, Elmer Referring Unavailable Richards, Elmer Primary Care Unavailable Richards, Elmer Referring Unavailable Noe, [place] Attending Unavailable Richards, Elmer Primary Care Unavailable Richards, Elmer Referring Unavailable Josey Lynn Attending Unavailable Richards, Elmer Primary Care Unavailable Noe, Michael Attending Unavailable Richards, Elmer Referring Unavailable Deidre Stanley Attending Unavailabl e Richards, Elmer Primary Care Unavailable Richards, Elmer Primary Care Unavailable Marcello Doe Attending Unavailable Josey Lynn Attending Unavailable Richards, Elmer Primary Care Unavailable Noe, Michael Attending Unavailable Richards, Elmer Primary Care Unavailable Noe, Michael Attending Unavailable Richards, Elmer Primary Care Unavailable Richards, Elmer Primary Care Unavailable Richards, Elmer Referring Unavailable Noe, Michael Attending Unavailable Richards, Elmer Primary Care Unavailable Noe, Michael Attending Unavailable Richards, Elmer Referring Unavailable Josey Lynn Attending Unavailable Richards, Elmer Primary Care Unavailable Richards, Elmer Primary Care Unavailable Milvia Soto Referring Unavail able Milvia Soto Attending Unavail able Richards, Elmer Primary Care Unavailable Brigida Rivers Referring Unavailable Brigida Rivers Attending Unavailable Richards, Elmer Primary Care Unavailable Richards, Elmer Referring Unavailable Richards, Elmer Attending Unavailable Richards, Elmer Primary Care Unavailable Richards, Elmer Referring Unavailable Richards, Elmer Attending Unavailable Anna MCLAIN, Dr. Payne Primary Care Physician Noe MCLAIN, Dr. Rdoriguez Attending Physician Dr. Elmer Richards MD Referring Provider Paresh Dior Attending Physician Shane TUNGSTEN TENDER-C, Josey Attending Physician [phone] STEWART FRANKS Attending Unavailable RICHARSD, ELMER A Primary Care Unavailable RICHARDS, ELMER A Primary Care Unavailable MARV PRETTY Referring Unavailable SATISH PACE Attending Unavailable RICHARDS, ELMER A Primary Care Unavailable RICHARDS, ELMER A Primary Care Unavailable STEWART FRANKS Attending Unavailable RICHARDS, ELMER A Primary Care Unavailable SHAWN EVERETT Attending Unavailable STEWART FRANKS Attending Unavailable RICHARDS, ELMER A Primary Care Unavailable RICHARDS, ELMER A Primary Care Unavailable STEWART FRANKS Referring Unavailable STEWART FRANKS Attending Unavailable SHAWN EVERETT Attending Unavailable RICHARDS, ELMER A Primary Care Unavailable SHAWN EVERETT Attending Unavailable RICHARDS, ELMER A Primary Care Unavailable RICHARDS, ELMER A Primary Care Unavailable SELF Referring Unavailable Allergies Allergy Classification Reported Allergen(s) Allergy Type Date of Onset Reaction(s) Facility (20 sources) Acetaminophen / HYDROcodone; Translations: [acetaminophen-hy drocodone] Drug Allergy 5 Itching [facility] (20 sources) Amoxicillin / Clavulanate; Translations: [amoxicillin-clav ulanate] Drug Allergy [facility] (20 sources) Codeine; Translations: [codeine] Drug Allergy 9 Anaphylaxis, Other: See Comments [facility] (20 sources) Erythromycin; Translations: [erythromycin] Drug Allergy 5 Rash, Swelling [facility] (20 sources) Ketorolac; Translations: [ketorolac] Drug Allergy 5 Itching [facility] (20 sources) Penicillin; Translations: [penicillins] Drug Allergy [facility] (9 sources) Aspirin Drug Allergy 2 Anaphylaxis [facility] (20 sources) HYDROcodone; Translations: [HYDROCODONE] Drug Allergy 9 Other: See Comments [facility] (20 sources) Penicillins; Translations: [PENICILLINS] Allergy to substance 5 Hives [facility] (20 sources) Glatiramer; Translations: [glatiramer] Drug Allergy 2 Dyspnea (finding), Tremor (finding) [facility] (17 sources) empagliflozin; Translations: [empagliflozin] Drug Allergy Mycosis (disorder) [facility] (20 sources) amLODIPine; Translations: [AMLODIPINE] Drug Allergy 3 Other: See Comments [facility] (20 sources) empagliflozin; Translations: [EMPAGLIFLOZIN] Drug Allergy 3 Other: See Comments [facility] (20 sources) Glatiramer Drug Allergy 3 Shortness of Breath [facility] (4 sources) Acetaminophen Drug Allergy 9 Other: See Comments [facility] Work Phone: (20 sources) cefdinir; Translations: [CEFDINIR] Drug Allergy 9 Other: See Comments [facility] Work Phone: (1 source) ALLERGIES NOT ON FILE; Translations: [ALLERGIES NOT ON FILE] Propensity to adverse reactions (disorder) [facility] 2 Repository (3 sources) Acetaminophen / HYDROcodone; Translations: [HYDROCODONE-ACET AMINOPHEN] Drug Allergy 5 [facility] Repository (1 source) amLODIPine Drug Allergy 5 [facility] Repository (1 source) Aspirin Drug Allergy 4 [facility] Repository (1 source) Codeine Drug Allergy 5 [facility] Repository (1 source) empagliflozin Drug Allergy 5 [facility] Repository (1 source) Erythromycin Drug Allergy 5 [facility] Repository (1 source) Glatiramer Drug Allergy 5 [facility] Repository (1 source) HYDROcodone Drug Allergy 5 [facility] Repository (1 source) Ketorolac Drug Allergy 5 [facility] Repository Medications Current Medications Medication Drug Class(es) Dates Sig (Normalized) Sig (Original) acetaminophen 500 mg oral tablet (20 sources) Start: 08-06-2024 take 2 tablets by mouth twice daily as needed Start: 04-07-2016 Tylenol Dose : 325 mg =, Oral, PRN as needed for pain, 0 Refill(s) Start Date: 04/07/16 Status: Ordered Repeat number: 1 Start: 04-07-2016 Tylenol 0 Refi ll(s) Start Date: 04/07/16 Status: Ordered Start: 08-19-2014 take 1 tablet by maicol th every six hours as needed acetaminophen (TYLENOL) 500 mg tablet Take 1 tablet by mouth every 6 hours as needed. 0 08/19/2014 Active Comment on above: Take 1 tablet by maicol th every 6 hours as needed. acetaminophen 325 mg / oxyCODONE hydrochloride 5 mg oral tablet (13 sources) Opioid Agonist Start: End: 5 take 1 tablet by mouth every eight hours as needed for pain oxyCODONE-acetaminoph en (PERCOCET) 5-325 mg tablet Indications: Spinal stenosis, lumbar region with neurogenic claudication Take 1 tablet by mouth every 8 hours as needed for pain (for acute post oeprative pain) for up to 7 days. 21 tablet 09/02/2024 09/09/2024 Active Start: 2024 End: 09-02-2024 take 1 tablet by mouth every four hours as needed for pain oxyCODONE-acetaminophen (PERCOCET) 5-325 mg tablet Indications: Spinal stenosis, lumbar region with neurogenic claudication Take 1 tablet by mouth every 4 hours as needed for pain (for acute post oeprative pain) for up to 7 days. 21 tablet 2024 09/02/2024 Discontinued take 1 tablet by maicol th every eight hours as needed oxyCODONE-acetaminophen (PERCOCET) 5-325 mg tablet Take 1 tablet by mouth every 8 hours as needed for pain. 0 Active amLODIPine 2.5 mg oral tablet (20 sources) Dihydropyridine Calcium Channel Josephine Start: 11-09-2020 amLODIPine 2.5 mg oral tablet Dose : 2.5 mg = 1 tab(s), Oral, qDay, # 30 tab(s), 0 Refill(s) Start Date: 11/09/20 Status: Ordered Start: 10-28-2020 End: 04-19-2021 take 2.5 mg by mouth once daily Amlodipine 5 mg tablet Discontinued 2.5 mg PO DAILY October 28, 2020 1:09pm April 19, 2021 4:33pm blood pressure Start: 10-28-2020 End: 04-19-2021 take 2.5 mg by mouth once daily Amlodipine Discontinue d 2.5 MG PO DAILY October 28, 2020 1:09pm April 19, 2021 4:33pm Start: 09-29-2020 End: 10-28-2020 take 1 tablet by mouth once daily Amlodipine 5 mg tablet Discontinued 5 mg PO DAILY 30 6 September 29, 2020 5:08pm October 28, 2020 1:10pm Start: 09-15-2020 End: 09-29-2020 take 1 tablet by mouth once daily Amlodipine (Norvasc) 2.5 mg tablet Discontinued 2.5 mg PO .daily at noon 30 September 19, 2020 5:11pm September 29, 2020 5:09pm Start: 06-25-2018 End: 09-30-2019 take 1 tablet by mouth once daily Amlodipine 10 mg tablet Discontinued 10 mg PO DAILY 90 3 June 25, 2018 1:00am September 30, 2019 10:12am Start: 06-24-2018 End: 06-25-2018 take 1 tablet by mouth once daily Amlodipine 5 mg tablet Discontinued 5 mg PO DAILY June 24, 2018 1:00am June 25, 2018 3:33pm aspirin 81 mg delayed release oral tablet (20 sources) Platelet Aggregation Inhibitor, Nonsteroidal Anti-inflammatory Drug Start: 07-12-2023 Comment on above: Take 81 mg by mouth once daily. Blood-Glucose Meter (Onetouch Verio Reflect Meter) misc (4 sources) Start: 11-19-2024 Blood-Glucose Meter (Onetouch Verio Reflect Meter) misc Active 0 .Route 1 November 19, 2024 12:00am Diabetes mellitus Type 2 diabetes mellitus with hyperglycemia assisted (current) use of insulin As directed Blood-Glucose Sensor (Dexcom G7 Sensor) device (7 sources) Start: 11-02-2024 Blood-Glucose Sensor (Dexcom G7 Sensor) device Active 0 .Route 3 November 02, 2024 12:00am Diabetes mellitus Type 2 diabetes mellitus with hyperglycemia assisted (current) use of insulin 1 sensor q 10 days carvedilol 25 mg oral tablet (20 sources) alpha-Adrenergic Josephine, beta-Adrenergic Josephine Start: 07-28-2024 Start: 07-24-2024 carvedilol (CO REG) 25 mg tablet Take by mouth once daily. 07/24/2024 Active Start: 05-20-2024 End: 07-28-2024 take 1 tablet by mouth twice daily at mealtime Carvedilol 25 mg tablet Discontinued 25 mg PO TWICE A DAY 60 May 20, 2024 3:57pm July 28, 2024 8:21pm must administer with a meal/food Start: 05-01-2024 End: 05-20-2024 take 1 tablet by mouth twice daily at mealtime Carvedilol (Coreg) 12.5 mg tablet Discontinued 12.5 mg PO TWICE A DAY 60 May 01, 2024 1:00am May 20, 2024 3:57pm must administer with a meal/food celecoxib 200 mg oral capsule (13 sources) Nonsteroidal Anti-inflammatory Drug Start: 10-16-2024 End: 12-15-2024 take 1 capsule by mouth twice daily celecoxib (CELEBREX) 200 mg capsule Take 1 capsule by mouth two times a day. 60 capsule 1 10/16/2024 12/15/2024 Active cholecalciferol 0.05 mg oral capsule (20 sources) Vitamin D Start: 07-15-2024 take 1 capsule by mouth once daily Start: 06-24-2024 take [address] [facility] every week cholecalciferol, Vitamin D3, (VITAMIN D3) 1,250 mcg (50,000 unit) cap capsule Take 1 capsule by mouth one time a week. 06/24/2024 Active Start: 05-18-2024 End: 07-15-2024 take 1 capsule by mouth once daily Cholecalciferol (Vitamin D3) 25 mcg (1,000 unit) capsule Discontinued 50 ug PO DAILY May 18, 2024 2:18pm July 15, 2024 4:50pm Start: 04-22-2024 End: 07-15-2024 take 1 capsule by mouth every week Cholecalciferol (Vitamin D3) 1,250 mcg (50,000 unit) capsule Discontinued 1250 ug PO EVERY WEEK April 22, 2024 1:00am July 15, 2024 4:50pm Vitamin d deficiency Vitamin D deficiency, unspecified Start: 04-23-2023 take 1 tablet by mouth once ch olecalciferol (VITAMIN D3) 50 mcg (2,000 unit) tablet Take 2,000 Units by mouth every afternoon. 04/23/2023 Active Start: 04-23-2023 take 1 tablet by mouth once ch olecalciferol (VITAMIN D3) 1,000 unit tab tablet Take 1 tablet by mouth every afternoon. 04/23/2023 Active Start: 02-28-2023 End: 05-18-2024 take 1 capsule by mouth once daily Cholecalciferol (Vitamin D3) 25 mcg (1,000 unit) capsule Discontinued 25 ug PO DAILY February 28, 2023 12:00am May 18, 2024 2:19pm Start: 01-16-2021 End: 04-19-2021 take 1 capsule by mouth every other week Cholecalciferol (Vitamin D3) 1,250 mcg (50,000 unit) capsule Discontinued 1250 ug PO .Q2WEEK 6 February 23, 2021 4:55pm April 19, 2021 4:09pm vitamin Start: 09-30-2019 End: 01-16-2021 take 1 capsule by mouth every week Cholecalciferol (Vitamin D3) 1,250 mcg (50,000 unit) capsule Discontinued 1250 ug PO EVERY WEEK 12 March 11, 2020 1:00am August 22, 2020 10:53am Comment on above: Take 1 tablet by maicol th every afternoon. Copaxone 40 mg/mL subcutaneous solution (2 sources) Start: Copaxone 40 mg/mL subcutaneous solution Dose : 40 mg =, Subcutaneous, Mon/Wed/Fri, # 12 EA, 0 Refill(s) Start Date: 10/17/20 Status: Ordered Diclofenac-Capsicum Oleoresin 75 mg- 0.025 % kit (7 sources) Start: take 75 mg by mouth three times daily Start: 11-11-2024 take 75 mg by mouth three times daily Diclofenac-Capsicum Oleoresin 75 mg- 0.025 % kit Active 1 NMA PO THREE TIMES A DAY November 11, 2024 12:00am back pain/ leg pain diroximel fumarate 231 mg de layed release oral capsule (20 sources) Start: 08-06-2024 Start: 01-03-2022 End: 08-06-2024 take 1 capsule by mouth twice daily Diroximel Fumarate (Vumerity) 231 mg capsule,delayed release(DR/EC) Discontinued 231 mg PO TWICE A DAY January 21, 2023 12:00am August 06, 2024 8:57am Comment on above: Take 462 mg by mouth two times a day. ergocalciferol 1.25 mg oral capsule (10 sources) Provitamin D2 Compound Start: 11-11-2024 take 1 capsule by [place] every other week ergocalciferol, vitamin D2, (VITAMIN D) 50,000 unit capsule Take 50,000 Units by mouth every 2 weeks. 0 Active Comment on above: Take 50,000 Units by mouth every 2 weeks. FREESTYLE LUIS MIGUEL 3 SENSOR [place] (20 sources) Start: 07-14-2024 FREESTYLE LUIS MIGUEL 3 SENSOR [place] CHANGE SENSOR EVERY 14 DAYS 07/14/2024 Active furosemide 40 mg oral tablet (11 sources) Loop Diuretic Start: 11-19-2024 take 1 tablet by mouth once daily in the morning Start: 11-11-2024 End: 11-15-2024 take 1 tablet by mouth once daily in the morning Furosemide (Lasix) 40 mg tablet Discontinued 40 mg PO EVERY MORNING 10 0 November 11, 2024 12:00am November 14, 2024 12:00am November 15, 2024 12:07am gabapentin 800 mg oral tablet (20 sources) Anti-epileptic Agent Start: 11-11-2024 take 1 tablet by mouth three times daily Start: 08-06-2024 End: 11-11-2024 take 1 tablet by mouth twice daily Gabapentin 600 mg tablet Discontinued 600 mg PO TWICE A DAY August 06, 2024 12:00am November 11, 2024 1:27pm Start: 12-16-2023 End: 08-06-2024 take 1 capsule by mouth twice daily Gabapentin 400 mg capsule Discontinued 400 mg PO TWICE A DAY January 01, 2024 12:00am August 06, 2024 8:55am Start: 09-04-2023 End: 03-02-2024 gabapentin 100 mg oral capsu le Dose : 100 mg = 1 cap(s), Oral, BID, # 180 cap(s), 1 Refill(s), Pharmacy: [facility], [place]am[place] stenosis of lumbosacral region, 09/04/23, 152, cm, 09/04/23 9:07:00 EDT, Height, 113.1, kg, 09/04/23 9:07:00 EDT, Dosing Weight Start Date: 09/04/23 Stop Date: 03/02/24 Status: Ordered Start: 07-04-2023 End: 01-01-2024 take 1 tablet by mouth twice daily Gabapentin 300 mg tablet Discontinued 300 mg PO TWICE A DAY July 12, 2023 10:41am January 01, 2024 2:41pm nerve pain Start: 08-29-2022 End: 12-31-2023 take 1 tablet by mouth three times daily Gabapentin 300 mg tablet Discontinued 300 mg PO THREE TIMES A DAY August 29, 2022 1:47pm July 12, 2023 10:43am nerve pain Start: 11-09-2020 End: 08-29-2022 take 1 tablet by mouth twice daily Gabapentin 300 mg tablet Discontinued 300 mg PO TWICE A DAY December 07, 2021 3:08pm August 29, 2022 1:50pm nerve pain Start: 11-09-2020 End: 12-07-2021 take 300 mg by mouth at bedtime Gabapentin Discontinue d 300 MG PO AT BEDTIME January 15, 2021 11:00pm December 07, 2021 2:08pm Start: 05-03-2020 End: 09-15-2020 Gabapentin 300 mg capsule Discontinued NMA PO May 03, 2020 1:00am September 15, 2020 11:17am Start: 05-03-2020 End: 09-15-2020 Gabapentin Discontinued EACH PO May 03, 2020 1:00am September 15, 2020 11:17am Start: 05-03-2020 End: 09-15-2020 Gabapentin Discontinued EACH PO May 03, 2020 12:00am September 15, 2020 10:17am End: 12-01-2024 take 1 tablet by mouth three times daily gabapentin (NEURONTIN) 600 mg tablet Take 600 mg by mouth three times a day. 12/01/2024 Discontinued (Discontinued by Patient) take 2 capsules by m outh twice daily gabapentin (NEURONTIN) 300 mg capsule Take 600 mg by mouth two times a day. Active gabapentin (NEUR ONTIN) 300 mg capsule Take 400 mg by mouth three times a day as needed (nerve pain). Active Comment on above: Take 300 mg by mouth two times a day. Take 300 mg by mouth three times a day as needed (nerve pain). 1 ml glatiramer acetate 40 mg/ml prefilled syringe (20 sources) Start: 10-17-2020 Copaxone 40 mg/mL subcutaneous solution Dose : 40 mg =, Subcutaneous, Sat/Sat/Sat, # 12 EA, 0 Refill(s) Start Date: 10/17/20 Status: Ordered Start: 06-24-2018 End: 12-25-2021 Glatiramer (Copaxone) 40 mg/ mL syringe Discontinued 40 mg SC .Q3June 24, 2018 1:00am December 25, 2021 1:46pm MS Comment on above: Inject 40 mg subcuta neously every other day. 3 ml insulin glargine 100 unt/ml pen injector (20 sources) Insulin Analog Start: 11-19-2024 Start: 08-06-2024 End: 11-19-2024 Insulin Glargine (Lantus Dunia ostar U-100 Insulin) 100 unit/mL (3 mL) insulin pen Discontinued 32 U SC EVERY MORNING 04 06September 23, 2024 4:40pm November 19, 2024 2:29pm Diabetes mellitus Type 2 diabetes mellitus with hyperglycemia assisted (current) use of insulin Start: 02-27-2024 End: 08-06-2024 Insulin Glargine (Lantus Dunia ostar U-100 Insulin) 100 unit/mL (3 mL) insulin pen Discontinued 28 U SC EVERY MORNING 30 February 27, 2024 2:41pm August 06, 2024 8:57am Diabetes mellitus Type 2 diabetes mellitus with hyperglycemia assisted (current) use of insulin Start: 11-27-2023 End: 02-27-2024 Insulin Glargine (Lantus Dunia ostar U-100 Insulin) 100 unit/mL (3 mL) insulin pen Discontinued 30 U SC EVERY MORNING 27 1 November 27, 2023 10:15am February 27, 2024 1:51pm Diabetes mellitus Type 2 diabetes mellitus with hyperglycemia assisted (current) use of insulin Start: 06-17-2023 End: 07-18-2023 LANTUS SOLOSTAR U-100 INSULI N 100 unit/mL (3 mL) Start: 01-22-2023 inject 1 dose by sub cutaneous injection once daily Lantus Dose : 30 unit(s) =, Subcutaneous, qDay, 0 Refill(s) Start Date: 01/22/23 Status: Ordered Repeat number: 1 Start: 01-22-2023 inject 1 dose by sub cutaneous injection once daily Lantus Dose : 30 unit(s) =, Subcutaneous, qDay, 0 Refill(s) Start Date: 01/22/23 Status: Ordered Start: 07-04-2022 End: 11-27-2023 Insulin Glargine (Lantus Dunia ostar U-100 Insulin) 100 unit/mL (3 mL) insulin pen Discontinued 28 U SC EVERY MORNING 25.2 1 September 16, 2023 10:19am November 27, 2023 10:16am Diabetes mellitus Type 2 diabetes mellitus with hyperglycemia assisted (current) use of insulin Start: 06-24-2018 End: 08-13-2019 Insulin Glargine U-300 Conc (Toujeo Max U-300 Solostar) 300 unit/mL (3 mL) insulin pen Discontinued 30 U SC DAILY June 24, 2018 1:00am August 13, 2019 1:12pm insulin glargine (LANTUS SOLOSTAR U-100 INSULIN) 100 unit/mL (3 mL) Inject 32 Units subcutaneously every morning. Active insulin glargine (LANTUS SOLOSTAR U-100 INSULIN) 100 unit/mL (3 mL) Inject subcutaneously. Active insulin glargine (LANTUS SOLOSTAR U-100 INSULIN) 100 unit/mL (3 mL) Inject subcutaneously. 0 Active Comment on above: Inject subcutaneousl y. 3 ml insulin lispro 100 unt/ ml pen injector (20 sources) Insulin Analog Start: 11-23-2024 Start: 11-19-2024 End: 11-23-2024 Insulin Lispro (Humalog Kwik pen Insulin) 100 unit/mL insulin pen Discontinued 18 U SC THREE TIMES A DAY November 19, 2024 2:27pm November 23, 2024 12:18pm Diabetes mellitus Type 2 diabetes mellitus without complications Start: 11-11-2024 End: 11-19-2024 Insulin Lispro (Humalog Kwik pen Insulin) 100 unit/mL insulin pen Discontinued 12 U SC THREE TIMES A DAY November 11, 2024 1:28pm November 19, 2024 2:29pm Diabetes mellitus Type 2 diabetes mellitus without complications Start: 11-04-2024 End: 11-11-2024 Insulin Lispro (Humalog Kwik pen Insulin) 100 unit/mL insulin pen Discontinued 20 U SC THREE TIMES A DAY 54 November 04, 2024 9:47am November 11, 2024 1:30pm Diabetes mellitus Type 2 diabetes mellitus without complications Start: 05-11-2024 End: 11-04-2024 Insulin Lispro (Humalog Kwik pen Insulin) 100 unit/mL insulin pen Discontinued 15 U SC THREE TIMES A DAY 40.5 1 May 11, 2024 9:08am November 04, 2024 9:48am Diabetes mellitus Type 2 diabetes mellitus without complications Start: 02-27-2024 End: 05-11-2024 Insulin Lispro (Humalog Kwik pen Insulin) 100 unit/mL insulin pen Discontinued 10 U SC THREE TIMES A DAY February 27, 2024 1:49pm May 11, 2024 9:09am Diabetes mellitus Type 2 diabetes mellitus without complications Start: 11-27-2023 End: 02-27-2024 Insulin Lispro (Humalog Kwik pen Insulin) 100 unit/mL insulin pen Discontinued 15 U SC THREE TIMES A DAY 40.5 February 14, 2024 10:51am February 27, 2024 1:51pm Diabetes mellitus Type 2 diabetes mellitus without complications Start: 07-04-2023 Insulin Lispro KwikPen 100 units/mL injectable solution Dose : 16 unit(s) =, TIDAC, 0 Refill(s) Start Date: 07/04/23 Status: Ordered Repeat number: 1 Start: 06-27-2023 inject 12 [IU] by webb bcutaneous injection three times daily, then inject 14 [IU] by subcutaneous injection three times daily insulin lispro (HUMALOG KWIKPEN) 100 unit/mL 12 UNITS SQ TID, using 14 UNITS SQ TID while on steroids 06/27/2023 Active Start: 06-27-2023 inject 10 [IU] by webb bcutaneous injection three times daily insulin lispro (HUMALOG KWIKPEN) 100 unit/mL inject 10 units subcutaneously three times a day 06/27/2023 Active Start: 06-27-2023 End: 11-27-2023 Insulin Lispro (Humalog Kwik pen Insulin) 100 unit/mL insulin pen Discontinued 10 U SC THREE TIMES A DAY 9 June 27, 2023 1:00am November 27, 2023 10:16am Diabetes mellitus Type 2 diabetes mellitus without complications Comment on above: inject 10 units subc utaneously three times a day lidocaine 0.04 mg/mg medicated patch (20 sources) Antiarrhythmic, Amide Local Anesthetic Start: 11-19-2024 Start: 09-02-2024 End: 09-02-2024 lidocaine (PF) 10 mg/mL (1 % ) 3 mL injection (XYLOCAINE) Start: 09-02-2024 End: 09-02-2024 3 mL, Injection - FOR ORTHO USE ONLY, ONCE, 1 dose, Starting on Sat09/02/24 at 1339, Until Sat09/02/24 at 1339 lidocaine (SALON PAS) 4 % patch APPLY ONE PATCH AT NIGHT AND LEAVE ON FOR 12 HOURS THEN REMOVE DURING THE DAY Active Lidocaine 4 % adhesive patch,medicated (2 sources) Start: 11-19-2024 Lidocaine 4 % adhesive patch,medicated Active NMA TOPICAL November 19, 2024 12:00am LORazepam 1 mg oral tablet (20 sources) Benzodiazepine Start: 05-03-2023 take 1 tablet by mouth every twelve hours LORazepam (ATIVAN) 1 mg tablet Take 1 tablet by mouth every 12 hours. 05/03/2023 Active Comment on above: Take 1 tablet by maicol th every 12 hours. losartan potassium 50 mg oral tablet (20 sources) Angiotensin 2 Receptor Josephine Start: 07-28-2024 End: 10-15-2024 take 1 tablet by mouth once daily Start: 06-10-2023 End: 07-18-2023 take 1 tablet by mouth every twelve hours losartan (COZAAR) 50 mg tablet Take 1 tablet by mouth every 12 hours. 0 06/10/2023 07/18/2023 Discontinued (Other) Start: 09-29-2020 End: 01-31-2021 take 2 tablets by mouth once daily Losartan 50 mg tablet Discontinued 100 mg PO DAILY September 29, 2020 5:07pm January 31, 2021 10:06am Start: 09-29-2020 End: 01-31-2021 take 100 mg by mouth once daily Losartan Discontinued 100 MG PO DAILY September 29, 2020 5:07pm January 31, 2021 10:06am Start: 06-24-2018 End: 07-28-2024 take 1 tablet by mouth twice daily Losartan 50 mg tablet Discontinued 50 mg PO TWICE A DAY 180 November 22, 2023 11:54am July 28, 2024 8:21pm losartan (COZAAR ) 25 mg tablet Take 12.5 mg by mouth daily at bedtime. 0 Active Comment on above: Take 12.5 mg by mout h daily at bedtime. Take 50 mg by mouth two times a day. Take 1 tablet by maicol th every 12 hours. methocarbamol 500 mg oral tablet (14 sources) Muscle Relaxant Start: End: take 1 tablet by mouth every eight hours as needed methocarbamol (ROBAXIN) 500 mg tablet TAKE 1 TABLET BY MOUTH THREE TIMES A DAY NEEDED (MUSCLE SPASM) FOR UP TO 7 DAYS. 21 tablet 11/17/2024 11/24/2024 Active Start: 09-29-2024 End: 10-06-2024 take 1 tablet by mouth every eight hours as needed methocarbamol (ROBAXIN) 500 mg tablet Take 1 tablet by mouth three times a day as needed (Muscle spasm) for up to 7 days. 21 tablet 09/29/2024 10/06/2024 Active Start: 08-14-2024 End: 09-08-2024 take 1 tablet by mouth every eight hours as needed methocarbamol (ROBAXIN) 500 mg tablet TAKE 1 TABLET BY MOUTH THREE TIMES A DAY NEEDED (MUSCLE SPASM) FOR UP TO 7 DAYS. 21 tablet 09/01/2024 09/08/2024 Active methylPREDNISolone (2 sources) Corticosteroid Start: 2024 End: 08-30-2024 methylPREDNISolone (MEDROL, DIANE,) 4 mg Dose-Pack Day one: 6 tab, Day two: 5 tabs, Day three: 4 tabs, Day four: 3 tabs, Day five: 2 tabs, Day six: 1 tab 21 tablet 2024 08/30/2024 Active Start: 2024 End: 2024 methylPREDNISolone (MEDROL, DIANE,) 4 mg Dose-Pack Day one: 6 tab, Day two: 5 tabs, Day three: 4 tabs, Day four: 3 tabs, Day five: 2 tabs, Day six: 1 tab 21 tablet 2024 2024 Discontinued Gfamhclazmjbe-Vysgcidh-Ijyob n (MULTIVITAMIN 50 PLUS) tab (20 sources) Multivitamins-Mi nerals-Lutein (MULTIVITAMIN 50 PLUS) tab Take 1 tablet by mouth once daily. Active Multivitamins-Mi nerals-Lutein (MULTIVITAMIN 50 PLUS) tab Take 1 tablet by mouth once daily. 0 Suspended Multivitamins-Mi nerals-Lutein (MULTIVITAMIN 50 PLUS) tab Take 1 tablet by mouth once daily. 0 Active Comment on above: Take 1 tablet by maicol th once daily. predniSONE 10 mg oral tablet (3 sources) Start: 10-16-2024 End: 10-25-2024 take 1 tablet by mouth three times daily, then take 1 tablet by mouth twice daily, then take 1 tablet by mouth once daily predniSONE (DELTASONE) 10 mg tablet Take 1 tablet by mouth three times a day for 3 days, THEN 1 tablet two times a day for 3 days, THEN 1 tablet once daily for 3 days. 18 tablet 10/16/2024 10/25/2024 Active Ozempic (20 sources) Start: 01-23-2024 Ozempic Subcutaneous, 0 Refill(s) Start Date: 01/23/24 Status: Ordered Repeat number: 1 Start: 01-23-2024 Ozempic Subcut aneous, 0 Refill(s) Start Date: 01/23/24 Status: Ordered Start: 01-20-2021 End: 01-23-2021 Semaglutide (Ozempic) 1 mg/d ose (2 mg/1.5 mL) pen injector Discontinued 0.5 MG SC WEBB January 20, 2021 11:18am January 23, 2021 1:44pm Start: 01-16-2021 End: 01-20-2021 Semaglutide (Ozempic) 1 mg/d ose (2 mg/1.5 mL) pen injector Discontinued 1 MG SC WEBB January 16, 2021 11:46am January 20, 2021 11:19am Start: 12-29-2019 End: 01-16-2021 Semaglutide (Ozempic) 1 mg/d ose (2 mg/1.5 mL) pen injector Discontinued 1 MG SC EVERY WEEK December 29, 2019 12:00am January 16, 2021 11:49am sertraline 50 mg oral tablet (20 sources) Serotonin Reuptake Inhibitor Start: 03-25-2024 take 1 tablet by mouth once daily Start: 03-25-2024 sertraline (ZO LOFT) 50 mg tablet 100 mg. 03/25/2024 Active Start: 08-13-2019 End: 09-30-2019 take 1 tablet by mouth once daily Sertraline 100 mg tablet Discontinued 100 mg PO DAILY August 13, 2019 12:00am September 30, 2019 10:12am Comment on above: Take 100 mg by mouth every evening. Tirzepatide (2 sources) Start: 11-03-19 Tirzepatide (Mounjaro) 2.5 mg/0.5 mL pen injector (5 sources) Start: 11-03-19 Tirzepatide (Mounjaro) 2.5 mg/0.5 mL pen injector Active 2.5 mg SC EVERY WEEK 2 3 November 02, 2024 12:00am Diabetes mellitus Type 2 diabetes mellitus with hyperglycemia assisted (current) use of insulin tirzepatide (MOUNJARO) 2.5 mg/0.5 mL pen injector (5 sources) inject 2.5 mg by subcutaneous injection every week tirzepatide (MOUNJARO) 2.5 mg/0.5 mL pen injector Inject 2.5 mg subcutaneously one time a week. Active Tresiba FlexTouch 200 units/mL 3 mL subcutaneous solution (2 sources) Start: 05-09-19 21 inject 1 dose by subcutaneous injection once daily Tresiba FlexTouch 200 units/mL 3 mL subcutaneous solution Dose : 42 unit(s) =, Subcutaneous, qDay, 34 UNITS UNDER SKIN DAILY Start Date: 05/09/20 Status: Ordered TRUE METRIX GLUCOSE METER (20 sources) Start: 07-08-19 TRUE METRIX GLUCOSE METER as directed. 07/08/2023 Active Start: 07-08-2023 TRUE METRIX GL UCOSE METER as directed. 0 07/08/2023 Suspended Start: 07-08-2023 TRUE METRIX GL UCOSE METER as directed. 0 07/08/2023 Active Comment on above: as directed. Vitamin D3 (2 sources) Start: 04-07-2016 Vitamin D3 Dose : 50,000 unit(s) =, 0 Refill(s) Start Date: 04/07/16 Status: Ordered zzzOzempic (1 mg dose) 2 mg/1.5 mL subcutaneous solution [id number] (2 sources) Start: 10-17-2020 zzzOzempic (1 mg dose) 2 mg/1.5 mL subcutaneous solution [id number] Refill(s) Start Date: 10/17/20 Status: Ordered Completed/Discontinued Medications Medication Drug Class(es) Dates Sig (Normalized) Sig (Original) acarbose 25 mg oral tablet (18 sources) alpha-Glucosidas e Inhibitor Start: 06-24-2018 End: 06-25-2018 take 1 tablet by mouth three times daily Acarbose 25 mg tablet Discontinued 25 mg PO THREE TIMES A DAY June 24, 2018 1:00am June 25, 2018 3:13pm acetaminophen 325 mg / HYDROcodone bitartrate 5 mg oral tablet (8 sources) Opioid Agonist Start: 10-09-2024 End: 11-11-2024 Hydrocodone-Acetami nophen 5-325 mg tablet Discontinued 1 {tbl} PO EVERY 6 HOURS NEEDED as needed for Pain 10 3 0 October 09, 2024 November 11, 2024 1:28pm Synovial cyst of right popliteal space Type 1 diabetes mellitus with hyperglycemia Synovial cyst of popliteal space [Cullen], right knee Type 1 diabetes mellitus with hyperglycemia ascorbic acid 1000 mg oral tablet (20 sources) Vitamin C End: 12-01-2024 take 1 tablet by mouth once daily Ascorbic Acid (VITAMIN C) 1,000 mg tablet Take 1,000 mg by mouth once daily. 12/01/2024 Discontinued (Discontinued by Patient) Comment on above: Take 1,000 mg by maicol th once daily. atorvastatin 20 mg oral tablet (18 sources) HMG-CoA Reductase Inhibitor Start: 05-07-2020 End: 09-15-2020 take 1 tablet by mouth once daily Atorvastatin 20 mg tablet Discontinued 20 mg PO DAILY 90 May 07, 2020 1:00am September 15, 2020 11:17am Blood-Glucose Meter (Accu-Chek Guide Glucose Meter) misc (11 sources) Start: 07-08-2023 End: 11-19-2024 Blood-Glucose Meter (Accu-Chek Guide Glucose Meter) misc Discontinued 0 .Route 1 0 July 08, 2023 1:00am November 19, 2024 3:03pm As directed Start: 07-08-2023 Blood-Glucose Meter (Accu-Chek Guide Glucose Meter) misc Active 0 .Route 1 0 July 08, 2023 1:00am As directed Start: 07-08-2023 Blood-Glucose Meter (Accu-Chek Guide Glucose Meter) misc Active 0 .Route 1 July 08, 2023 1:00am As directed Blood-Glucose Meter (True Me trix Glucose Meter) misc (9 sources) Start: 08-04-2024 End: 11-19-2024 Blood-Glucose Meter (True Metrix Glucose Meter) misc Discontinued 0 .Route 1 0 August 04, 2024 12:00am November 19, 2024 3:03pm As directed Start: 08-04-2024 Blood-Glucose Meter (True Metrix Glucose Meter) misc Active 0 .Route 1 0 August 04, 2024 12:00am As directed Start: 08-04-2024 Blood-Glucose Meter (True Metrix Glucose Meter) misc Active 0 .Route 1 August 04, 2024 12:00am As directed Blood-Glucose Sensor (Freest [place]le [employer] Miguel 3 Sensor) device (9 sources) Start: 05-18-2024 End: 11-02-2024 Blood-Glucose Sensor (Freest yle Luis Miguel 3 Sensor) device Discontinued 0 .Route 2 May 18, 2024 1:00am November 02, 2024 8:17am Diabetes mellitus Type 2 diabetes mellitus with hyperglycemia assisted (current) use of insulin 1 sensor q 14 days Start: 05-18-2024 Blood-Glucose Sensor (Freestyle Luis Miguel 3 Sensor) device Active 0 .Route 2 May 18, 2024 1:00am 1 sensor q 14 days 12 hr buPROPion hydrochloride 100 mg extended release oral tablet (20 sources) Aminoketone Start: 04-19-2023 End: 07-18-2023 take 1 tablet by mouth every twelve hours buPROPion SR (WELLBUTRIN SR) 100 mg 12 hr tablet Take 1 tablet by mouth every 12 hours. 0 04/19/2023 07/18/2023 Discontinued (Course of therapy completed) Start: 01-21-2023 End: 02-28-2023 take 1 tablet by mouth twice daily Bupropion Hcl (Wellbutrin Sr) 100 mg tablet sustained-release 12 hr Discontinued 100 mg PO TWICE A DAY 60 5 January 21, 2023 11:00am February 28, 2023 9:13am Depression Depression, unspecified Start: 08-29-2022 End: 01-21-2023 take 1 tablet by mouth once daily Bupropion Hcl (Wellbutrin Sr) 100 mg tablet sustained-release 12 hr Discontinued 100 mg PO DAILY 30 September 03, 2022 12:13pm January 21, 2023 11:00am Depression Depression, unspecified Comment on above: Take 1 tablet by maicol th every 12 hours. busPIRone hydrochloride 10 mg oral tablet (18 sources) Start: End: take 1 tablet by mouth once daily Buspirone 10 mg tablet Discontinued 10 mg PO DAILY June 24, 2018 1:00am February 09, 2019 3:21pm calcium carbonate 500 mg chewable tablet (3 sources) Start: take 500 mg by mouth every hour as needed calcium carbonate (TUMS) 500 mg chew Take 1 tablet by mouth every hour as needed (numbness/tingling). 0 08/19/2014 Active Comment on above: Take 1 tablet by maicol th every hour as needed (numbness/tingling). calcium carbonate 1250 mg / cholecalciferol 0.01 mg chewable tablet (3 sources) Vitamin D Start: take 1 tablet by mouth three times daily calcium carbonate-vitamin D3 (OSCAL+D) 500 mg(1,250mg) -400 unit chewable tablet Take 1 tablet by mouth three times daily. 0 08/19/2014 Active Comment on above: Take 1 tablet by maicol th three times daily. chlorthalidone 25 mg oral tablet (3 sources) Thiazide-like Diuretic chlorthalidone (HYGROTON) 25 mg tablet Take 12.5 mg by mouth once daily. 0 Active Comment on above: Take 12.5 mg by mout h once daily. clopidogrel 75 mg oral tablet (18 sources) P2Y12 Platelet Inhibitor Start: End: take 1 tablet by mouth once daily Clopidogrel (Plavix) 75 mg tablet Discontinued 75 mg PO daily 04 04July 23, 2018 12:00am February 09, 2019 3:21pm diazePAM 5 mg oral tablet (4 sources) Benzodiazepine Start: End: diazePAM (VALIUM) 5 mg tablet take 1 tablet by mouth 20 TO 30 MINUTES PRIOR TO MRI MAY TAKE 2ND DOSE IF NEEDED 0 06/17/2023 09/05/2023 Discontinued Comment on above: take 1 tablet by maicol th 20 TO 30 MINUTES PRIOR TO MRI MAY TAKE 2ND DOSE IF NEEDED diclofenac sodium 75 mg delayed release oral tablet (20 sources) Nonsteroidal Anti-inflammatory Drug Start: End: take 1 tablet by mouth twice daily for pain diclofenac, EC, (VOLTAREN) 75 mg EC tablet Take 1 tablet by mouth two times a day. for pain. 60 tablet 1 09/11/2024 10/16/2024 Discontinued Start: 12-23-2023 End: 11-11-2024 take 1 tablet by mouth three times daily Diclofenac Sodium 50 mg tablet,delayed release (DR/EC) Discontinued 50 mg PO THREE TIMES A DAY January 01, 2024 12:00am November 11, 2024 1:26pm Start: 09-11-2022 End: 09-05-2023 diclofenac sodium 50 mg oral delayed release tablet Dose : 50 mg = 1 tab(s), Oral, TID, # 270 tab(s), 1 Refill(s), Pharmacy: [facility], 07/04/23, 152, cm, 07/04/23 6:52:00 EST, Height, kg, 07/04/23 6:52:00 EST, Dosing Weight Start Date: 07/04/23 Status: Ordered Start: 02-28-2023 diclofenac sod ium 50 mg oral delayed release tablet Dose : 50 mg = 1 tab(s), Oral, TID, # 270 tab(s), 0 Refill(s), [id number], [facility], cm, 07/03/22 12:41:00 EST, Height Start Date: 07/03/22 Status: Ordered Start: 04-26-2022 diclofenac sod ium 75 mg oral delayed release tablet Dose : 75 mg = 1 tab(s), Oral, BID, # 60 tab(s), 0 Refill(s), [id number], 152.4, cm, 04/26/22 9:01:00 EST, Height Start Date: 04/26/22 Status: Ordered End: 09-05-2023 take 1 tablet by mouth three times daily diclofenac potassium (CATAFLAM) 50 mg tablet Take 50 mg by mouth three times a day. 0 09/05/2023 Discontinued Comment on above: Take 50 mg by mouth three times a day. [facility] DULoxetine 30 mg delayed release oral capsule (2 sources) Serotonin and Norepinephrine Reuptake Inhibitor Start: 05-03-20 End: 07-18-19 take 1 capsule by mouth once DULoxetine (CYMBALTA) 30 mg capsule Take 1 capsule by mouth every afternoon. 0 05/03/2023 07/18/2023 Discontinued (Course of therapy completed) Start: 05-03-2023 End: 07-18-2023 take 1 capsule by mouth once DULoxetine (CYMBALTA) 60 mg capsule Take 1 capsule by mouth every afternoon. 0 05/03/2023 07/18/2023 Discontinued (Course of therapy completed) Comment on above: Take [address] [facility] every afternoon. empagliflozin 25 mg oral tablet (20 sources) Sodium-Glucose Cotransporter 2 Inhibitor Start: 01-17-20 End: 01-22-20 take 1 tablet by mouth once daily Empagliflozin (Jardiance) 25 mg tablet Discontinued 25 mg PO DAILY September 03, 2022 12:13pm January 21, 2023 10:23am diabetes Start: 09-30-2019 End: 08-22-2020 take 1 tablet by mouth once daily Empagliflozin (Jardiance) 25 mg tablet Discontinued 25 mg PO DAILY 02 11May 12, 2020 6:47pm August 22, 2020 10:42am ergocalciferol (vitamin D2) 50,000 unit tablet (9 sources) Start: 06-24-2018 End: 03-11-2020 take 1 tablet by mouth every week ergocalciferol (vitamin D2) 50,000 unit tablet Discontinued UNIT PO .weekly June 24, 2018 12:00am March 11, 2020 2:52pm Start: 06-24-2018 End: 03-11-2020 take 1 tablet by mouth every week ergocalciferol (vitamin D2) 50,000 unit tablet Discontinued UNIT PO .weekly June 24, 2018 1:00am March 11, 2020 3:52pm Ergocalciferol (Vitamin D2) 50,000 unit tablet (9 sources) Start: 06-24-2018 End: 03-11-2020 Ergocalciferol (Vitamin D2) 50,000 unit tablet Discontinued U PO .weekly June 24, 2018 1:00am March 11, 2020 3:52pm Start: 06-24-2018 End: 03-11-2020 Ergocalciferol (Vitamin D2) 50,000 unit tablet Discontinued U PO .weekly June 24, 2018 1:00am March 11, 2020 3:52pm fluconazole 150 mg oral tablet (20 sources) Azole Antifungal Start: 10-31-2022 End: 01-21-2023 Fluconazole (Diflucan) 150 mg tablet Discontinued 150 mg PO Every 3 Days 2 0 October 31, 2022 12:00am January 21, 2023 10:22am Candidiasis of vagina Acute candidiasis of vulva and vagina Start: 08-27-2021 End: 12-07-2021 take 1 tablet by mouth once Fluconazole 150 mg tablet Discontinued 150 mg PO ONCE 1 August 27, 2021 12:00am December 07, 2021 3:06pm as a single dose Start: 06-20-2020 End: 09-15-2020 Fluconazole 150 mg tablet Di scontinued 150 mg PO Every 3 Days 2 0 0 June 20, 2020 1:00am September 15, 2020 11:17am glimepiride 2 mg oral tablet (20 sources) Sulfonylurea Start: 01-22-2023 glimepiride 2 mg oral tablet Dose : 2 mg = 1 tab(s), Oral, qDay, # 30 tab(s), 0 Refill(s) Start Date: 01/22/23 Status: Ordered Start: 01-21-2023 End: 07-18-2023 take 3 tablets by mouth once daily Glimepiride 2 mg tablet Discontinued 6 mg PO DAILY January 21, 2023 12:00am June 27, 2023 3:25pm Diabetes mellitus Type 2 diabetes mellitus without complications Start: 01-21-2023 End: 06-27-2023 take 6 mg by mouth once daily Glimepiride Discontinued 6 MG PO DAILY January 21, 2023 12:00am June 27, 2023 3:25pm Start: 08-18-2020 End: 11-08-2020 take 1 tablet by mouth once daily Glimepiride 4 mg tablet Discontinued 4 mg PO DAILY 02 10August 18, 2020 12:00am November 08, 2020 11:45am Comment on above: Take 6 mg by mouth d aily with breakfast. Take [address] [facility] every afternoon. 3 ml sodium hyaluronate 10 mg/ml prefilled syringe (2 sources) Start: 11-13-2024 End: 11-13-2024 hyaluronate sod, cross-linked 30 mg injection (GEL-ONE) Start: 11-13-2024 End: 11-13-2024 30 mg, Injection - FOR ORTHO USE ONLY, ONCE, 1 dose, Starting on Sat11/13/24 at 1554, Until Sat11/13/24 at 1554 hydroCHLOROthiazide 25 mg oral tablet (20 sources) Thiazide Diuretic Start: 01-22-2023 End: 09-21-2024 take 1 tablet by mouth once daily Hydrochlorothiazide 25 mg tablet Discontinued 25 mg PO DAILY November 22, 2023 11:54am September 21, 2024 9:46am this is a dose increase Start: 08-29-2022 End: 01-23-2023 take 1 capsule by mouth once daily Hydrochlorothiazide 12.5 mg capsule Discontinued 12.5 mg PO DAILY August 29, 2022 12:00am January 23, 2023 5:15pm Start: 10-28-2020 End: 05-08-2022 take 1 tablet by mouth once daily Hydrochlorothiazide 25 mg tablet Discontinued 25 mg PO DAILY 04 04July 11, 2021 11:39am March 19, 2022 5:08pm hydroCHLOROthiaz raghu 25 mg tablet Take 12.5 mg by mouth once daily. Active Comment on above: Take 25 mg by mouth once daily. Take 1 tablet by maicol th every afternoon. hydroxychloroquine sulfate 200 mg oral tablet (15 sources) Antimalarial, Antirheumatic Agent Start: 2023 End: 2024 take 1 tablet by mouth once daily Hydroxychloroquine 200 mg tablet Discontinued 200 mg PO daily January 01, 2024 12:00am May 18, 2024 2:18pm ibuprofen 600 mg oral tablet (3 sources) Nonsteroidal Anti-inflammatory Drug Start: 2014 take 1 tablet by mouth every six hours as needed ibuprofen (MOTRIN) 600 mg tablet Take 1 tablet by mouth every 6 hours as needed. 0 08/19/2014 Active Comment on above: Take 1 tablet by maicol th every 6 hours as needed. indapamide 1.25 mg oral tablet (18 sources) Thiazide-like Diuretic Start: 2018 End: 2020 take 1 tablet by mouth once daily in the morning Indapamide 1.25 mg tablet Discontinued 1.25 mg PO EVERY MORNING June 24, 2018 1:00am October 28, 2020 1:09pm 3 ml insulin degludec 100 unt/ml pen injector (20 sources) Insulin Analog Start: 2021 End: 2022 Insulin Degludec (Tresiba Flextouch U-100) 100 unit/mL (3 mL) insulin pen Discontinued 28 U SC DAILY 30 June 20, 2022 1:56pm August 29, 2022 1:48pm diabetes Start: 01-16-2021 End: 07-04-2021 Insulin Degludec (Tresiba Flextouch U-100) 100 unit/mL (3 mL) insulin pen Discontinued 28 U SC 1500 30 May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 patient's multidisciplinary team (including the bedside nurse for hospitalized patients) applicable. Stewart Franks PA-C Referring Provider: STEWART FRANKS [[id number]] Allergies As of Date: 11/13/2024 Noted Allergy Reaction CODEINE 12/03/2008 10 - Anaphylaxis 14 - Other: See Comments ERYTHROMYCIN 07/20/2014 2 - Rash 7 - Swelling TORADOL (KETOROLAC) 07/20/2014 9 - Itching Comments: Given with Vicodin at the time of the reaction. VICODIN (HYDROCODONE-ACETAMINOP HE*07/20/2014 9 - Itching Comments: Given with Toradol at the time of the reaction. AMLODIPINE 01/23/2023 14 - Other: See Comments CEFDINIR 12/03/2008 14 - Other: See Comments COPAXONE (GLATIRAMER) 04/01/2023 12 - Shortness of Breath HYDROCODONE 12/03/2008 14 - Other: See Comments JARDIANCE (EMPAGLIFLOZIN) 04/01/2023 14 - Other: See Comments Comments: Chronic yeast infection PENICILLINS 07/20/2014 4 - Hives Date Reviewed: 11/13/2024 Reviewed by: Marixa Mc LPN - Fully Assessed Reason for Visit: Established Patient [175] Knee Pain [132] Primary Visit Diagnosis:Primary osteoarthritis of right knee [M17.11] Order(s):Large Joint Arthro/Inj: R knee joint [MOT431] Order #: [id number] [] hyaluronate sod, cross-linked 30 mg injection (GEL-ONE)Disp: Rfl: Prescriptions as of 11/13/2024 - celecoxib (CELEBREX) 200 mg capsule Take 1 capsule by mouth two times a day. - lidocaine (SALONPAS) 4 % patch APPLY ONE PATCH AT NIGHT AND LEAVE ON FOR 12 HOURS THEN REMOVE DURING THE DAY - sertraline (ZOLOFT) 50 mg tablet 100 mg. - carvedilol (COREG) 25 mg tablet Take by mouth once daily. - FREESTYLE LUIS MIGUEL 3 SENSOR wilbur CHANGE SENSOR EVERY 14 DAYS - cholecalciferol, Vitamin D3, (VITAMIN D3) 1,250 mcg (50,000 unit) cap capsule Take 1 capsule by mouth one time a week. - TRUE METRIX GLUCOSE TEST STRIP test strip use 1 TEST STRIP to TEST BLOOD SUGAR four times a day - TRUE METRIX GLUCOSE METER as directed. - TRUEPLUS LANCETS 30 gauge use 1 LANCET to TEST BLOOD SUGAR four times a day - cholecalciferol (VITAMIN D3) 50 mcg (2,000 unit) tablet Take 2,000 Units by mouth every afternoon. - tiZANidine (ZANAFLEX) 4 mg tablet Take 4 mg by mouth daily at bedtime. - levothyroxine (SYNTHROID) 150 mcg tablet Take 1 tablet by mouth every afternoon. - insulin lispro (HUMALOG KWIKPEN) 100 unit/mL 12 UNITS SQ TID, using 14 UNITS SQ TID while on steroids - aspirin, enteric coated (ASPIRIN, ENTERIC COATED) 81 mg EC tablet Take 81 mg by mouth once daily. - omega-3 fatty acids/fish oil (FISH OIL-OMEGA-3 FATTY ACIDS) 300-1,000 mg cap Take by mouth. - Multivitamins-Minerals- Lutein (MULTIVITAMIN 50 PLUS) tab Take 1 tablet by mouth once daily. - Ascorbic Acid (VITAMIN C) 1,000 mg tablet Take 1,000 mg by mouth once daily. - diroximel fumarate (VUMERITY) 231 mg capsule, delayed release Take 462 mg by mouth two times a day. - hydroCHLOROthiazide 25 mg tablet Take 12.5 mg by mouth once daily. - rosuvastatin (CRESTOR) 5 mg tablet Take 5 mg by mouth once daily. - i (more content not included)... Normal [facility] Large Joint Arthro/Inj: R kn ee jointon 11-13-2024 Stewart Franks P A-C 11/13/2024 3:54 PM Large Joint Arthro/Inj: R knee joint 11/13/2024 3:54 PM The procedure site was prepped in the usual sterile fashion. Site: R knee joint Medications: 30 mg hyaluronate sod, cross-linked 30 mg/3 mL Outcome: Tolerated well, no immediate complications Post-injection instructions were reviewed with the patient and the patient voiced understanding of these instructions. Informed Consent Consent Obtained: Verbal Sarah Ann Protocol A moment to CARE was completed. SIGN IN Personnel directly involved with the procedure wore the appropriate PPE. Special Equipment: N/A Patient/Surrogate Stated/Verified: Patient name, Date of , Relevant allergies and Intended procedure TIME OUT Relevant labs, photos, and/or imaging studies have been reviewed. Intended patient and procedure match source documents. Consent obtained and matches the intended procedure. Correct side/site marked and visible. Medications required for procedure verified. Fire risk assessed and interventions discussed. No implant(s) inserted. SIGN OUT No specimen collected. All instruments, equipment, possible retained foreign bodies accounted for. The post-procedure POC has been communicated to the patient or surrogate. No post-procedure POC communication to the patient's multidisciplinary team (including the bedside nurse for hospitalized patients) applicable. [facility] Cardiology Visit Reporton Cardiology Visit Report [facility] [address] [place] [address] OFFICE VISIT Date of Service: 11/11/24 MR#: [id number] Acct: [id number] Name: KVNG LANDRY Rep #: [id number] 0 : 1970 Provider: BERNARD Jasmine Age/Sex: 54/F Location: [facility] Status: Signed HPI HPI History of Present Illness Details: Kvng Landry is a 54-year-old female who presents to office today for follow-up for monitoring her cardiovascular health. Patient has a history of myocardial bridging, hypertension, hyperlipidemia, MS and diabetes. She notes that she may also have systemic lupus. As you remember she had presented with fatigue having undergone a left heart catheterization in July 2018. It demonstrated LAD myocardial bridging and a small area of apical akinesis. She underwent a 30-day Holter monitor which demonstrated sinus rhythm with first-degree AV block and a left bundle branch block. She also had periods of complete heart block. This led to a pacemaker implantation in February 2021. Due to yearly her young age she underwent a cardiac MRI which did confirm a transmural infarct in the apex. There was late gadolinium enhancement images demonstrating a subendocardial scar at the mid anterior wall involving less than 50%. No other infiltrative conditions were noted. Patient did see Dr. Montanez at [facility] and March 2023. They had adjusted her pacemaker programming to unipolar to help with her high atrial lead impedance that was noted on her pacemaker check. He had recommended that they could undergo an MRI with her pacemaker in the RENATA setting. 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 In May 2023, she was having an MS flare. She is in need of an MRI to look for additional lesions. The was denied per [employer]. Because of this this her insurance company will not cover this. Patient did develop symptoms with her fractured atrial lead. She feels like she did with prior to having her PPM placed. Because of this she she is seeing Dr. Baer on 07/18/2023. In September 2023 patient underwent an extraction of her Ferris pacemaker system with right atrial and right ventricular apex leads with subsequent reimplantation of Medtronic pacemaker system with right atrial and right ventricular septal lead with Dr. Baer. She was seen at outside facility in July 2024 for syncopal episode after obtaining x-ray. She had medication changes. Her episode was thought to be vasovagal related. Upon presentation today, she reports feeling well from a cardiac standpoint. She is battling some symptoms related to her back issues and MS. She is having some pain and numbness in her legs. She is experiencing fatigue that she associates with the medications she taking. This is chronic. Weakness is noticed in her lower extremities and she relates this to back problems and MS. She reports recent increase in her lower extremity edema and does notice some improvement with elevation. She has recently been on and off steroids. Her blood pressure at home has been around 120s over 70s. Further ROS below. Intake Vital Signs 10/09/24 10:44 11/11/24 13:17 Height 5 ft 5 ft Weight: 253 lb BMI 49.4 BP 131/83 H Blood Pressure Location Lt brachial Position Sitting Respiration 18 Pulse 77 Pulse Source Monitor Intake Visit Reasons: 2 M FU/EDEN @ 1 International Accountant Required: No Accompanied by: Self Allergies glatiramer (copolymer 1) (From Copaxone) Allergy (Severe, Verified 11/11/24 13:25) hypotension, shaking, irregular breathing empagliflozin (From Jardiance) Allergy (Intermediate, Verified 11/11/24 13:25) yeast infection codeine Allergy (Verified 11/11/24 13:25) Anaphylaxis Penicillins Allergy (Verified 11/11/24 13:25) rash amlodipine Adverse Reaction (Intermediate, Verified 11/11/24 13:25) Swelling in shins and ankles ached erythromycin base (From Erythrocin) Adverse Reaction (Verified 11/11/24 13:25) Unknown hydrocodone (From Vicodin) Adverse Reaction (Verified 11/11/24 13:25) syncope ketorolac (From Toradol) Adverse Reaction (Verified 11/11/24 13:25) anxious Medications ???Medication ???Instructions ???Recorded ???Confirmed ???Type tizanidine 4 mg capsule 4 mg PO QHS muscle spasms 01/16/21 11/11/24 History lancing device with lancets kit #1 ea 03/11/23 04/15/24 Rx (Accu-Chek FastClix Lancing Device kit) blood sugar diagnostic (Accu-Chek #150 ea 07/08/23 04/15/24 Rx Guide test strips) blood-glucose meter (Accu-Chek #1 ea 07/08/23 04/15/24 Rx Guide Glucose Meter) lancets (Accu-Chek Fastclix Lancet #200 ea 07/08/23 04/15/24 Rx Drum) aspirin 81 mg tablet,delayed 81 mg PO DAILY 07/12/23 11/11/24 H istory release (Adult Low Dose Aspirin) modafinil 200 mg tablet 200 mg PO QDAY 05/18/24 05/18/24 H istory (more content not included)... Normal [facility] Pacemaker Checkon 11-11-2024 Pacemaker Check [facility] [address] [place] [address]. [address] [place] [address] Pacemaker Check Date of Service: 11/11/24 1539 MR#: [id number] Acct: [id number] Name: KVNG LANDRY LEXI Rep #: [id number] 0 : 1970 From: Jami Lopez Age/Sex: 54/F Location: [facility] Status: Signed Billing Codes PM Device Codes: 96094 PM Dev Prog Eval, Dual Assessment and Plan Assessment and Plan (1) Mobitz type 2 second degree AV block: Status: Acute Comment: Intermittent (2) History of permanent cardiac pacemaker placement: Status: Chronic Comment: replacement 09/202311/11/24 1542 Date Jami Rascon Signature: Date (if applicable) CC: Normal [facility] Benigno 11-03-2024 GRANTN Telephone ([facility]) KVNG LANDRY ([id number]) 1970 F Date Time Provider Department 11/03/24 AYAAN MORELAND [facility] During your visit today, we recorded the following information about you: Allergies As of Date: 11/03/2024 Noted Allergy Reaction CODEINE 12/03/2008 10 - Anaphylaxis 14 - Other: See Comments ERYTHROMYCIN 07/20/2014 2 - Rash 7 - Swelling TORADOL (KETOROLAC) 07/20/2014 9 - Itching Comments: Given with Vicodin at the time of the reaction. VICODIN (HYDROCODONE-ACETAMINOP HE*07/20/2014 9 - Itching Comments: Given with Toradol at the time of the reaction. AMLODIPINE 01/23/2023 14 - Other: See Comments CEFDINIR 12/03/2008 14 - Other: See Comments COPAXONE (GLATIRAMER) 04/01/2023 12 - Shortness of Breath HYDROCODONE 12/03/2008 14 - Other: See Comments JARDIANCE (EMPAGLIFLOZIN) 04/01/2023 14 - Other: See Comments Comments: Chronic yeast infection PENICILLINS 07/20/2014 4 - Hives Date Reviewed: 10/22/2024 Reviewed by: Adriane De Los Santos LPN - Fully Assessed Prescriptions as of 11/09/2024 - celecoxib (CELEBREX) 200 mg capsule Take 1 capsule by mouth two times a day. - lidocaine (SALONPAS) 4 % patch APPLY ONE PATCH AT NIGHT AND LEAVE ON FOR 12 HOURS THEN REMOVE DURING THE DAY - sertraline (ZOLOFT) 50 mg tablet 100 mg. - carvedilol (COREG) 25 mg tablet Take by mouth once daily. - FREESTYLE LUIS MIGUEL 3 SENSOR wilbur CHANGE SENSOR EVERY 14 DAYS - cholecalciferol, Vitamin D3, (VITAMIN D3) 1,250 mcg (50,000 unit) cap capsule Take 1 capsule by mouth one time a week. - TRUE METRIX GLUCOSE TEST STRIP test strip use 1 TEST STRIP to TEST BLOOD SUGAR four times a day - TRUE METRIX GLUCOSE METER as directed. - TRUEPLUS LANCETS 30 gauge use 1 LANCET to TEST BLOOD SUGAR four times a day - cholecalciferol (VITAMIN D3) 50 mcg (2,000 unit) tablet Take 2,000 Units by mouth every afternoon. - tiZANidine (ZANAFLEX) 4 mg tablet Take 4 mg by mouth daily at bedtime. - levothyroxine (SYNTHROID) 150 mcg tablet Take 1 tablet by mouth every afternoon. - insulin lispro (HUMALOG KWIKPEN) 100 unit/mL 12 UNITS SQ TID, using 14 UNITS SQ TID while on steroids - aspirin, enteric coated (ASPIRIN, ENTERIC COATED) 81 mg EC tablet Take 81 mg by mouth once daily. - omega-3 fatty acids/fish oil (FISH OIL-OMEGA-3 FATTY ACIDS) 300-1,000 mg cap Take by mouth. - Multivitamins-Minerals- Lutein (MULTIVITAMIN 50 PLUS) tab Take 1 tablet by mouth once daily. - Ascorbic Acid (VITAMIN C) 1,000 mg tablet Take 1,000 mg by mouth once daily. - diroximel fumarate (VUMERITY) 231 mg capsule, delayed release Take 462 mg by mouth two times a day. - hydroCHLOROthiazide 25 mg tablet Take 12.5 mg by mouth once daily. - rosuvastatin (CRESTOR) 5 mg tablet Take 5 mg by mouth once daily. - insulin glargine (LANTUS SOLOSTAR U-100 INSULIN) 100 unit/mL (3 mL) Inject 32 Units subcutaneously every morning. - gabapentin (NEURONTIN) 600 mg tablet Take 600 mg by mouth three times a day. - losartan (COZAAR) 50 mg tablet Take 50 mg by mouth two times a day. - acetaminophen (TYLENOL) 500 mg tablet Take 1 tablet by mouth every 6 hours as needed. 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*03/19/2017 Spondylolisthesis of lumbar region [M43.16] 03/19/2017 Abnormal electrocardiography [R94.31] 07/17/2023 Diagnosed: 07/17/2023 Candidiasis of vagina [B37.31] 07/17/2023 07/18/2023 Diagnosed: 07/17/2023 Spondylosis of cervical spine [M47.812] 03/09/2022 Diagnosed: 07/17/2023 Chest pain [R07.9] 07/17/2023 Diagnosed: 07/17/2023 Diabetes mellitus (HCC) [E11.9] 01/21/2023 Diagnosed: 07/17/2023 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/2023 Diagnosed: 07/17/2023 Dyspnea on exertion [R06.09] 07/17/2023 Diagnosed: 07/17/2023 Fatigue [R53.83] 11/15/2022 Diagnosed: 07/17/2023 History of cardiac catheterization [Z98.890] 07/30/2018 Diagnosed: 07/17/2023 Hyperlipidemia [E78.5] 01/21/2023 Diagnosed: 07/17/2023 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 [*01/21/2023 Diagnosed: 07/17/2023 Lumbosacral radiculopathy [M54.17] 11/14/2021 Diagnosed: 07/17/2023 Migraine [G43.909] 07/17/2023 Diagnosed: 07/17/2023 Muscle pain [M79.10] 03/09/2022 Diagnosed: 07/17/2023 Neck pain [M54.2] 12/15/2021 Diagnosed: 07/17/2023 Palpitations [R00.2] 07/17/2023 Diagnosed: 07/17/2023 Paresis of lower extremity (HCC) [G83.10] 07/17/2023 Diagnosed: 07/17/2023 Paroxysmal atrial fibrillation (HCC) [I48.0] 01/15/2023 Diagnosed: 07/17/2023 Right bundle branch block (RBBB) with left ante*02/06/2021 Diagnosed: 07/17/2023 Systemic lupus erythematosus (HCC) [M32.9] 07/17/2023 Diagnosed: 07/17/2023 Vit (more content not included)... [facility] Telephone ([facility]) KVNG LANDRY ([id number]) 1970 F Date Time Provider Department 11/03/24 AYAAN MORELAND During your visit today, we recorded the following information about you: Yuridia Murcia RN 11/03/2024 3:45 PM Signed Triage received outside medical records including ov notes and outside imaging. Copy placed on Dr Moreland's desk for review and copy sent for scanning. Allergies As of Date: 11/03/2024 Noted Allergy Reaction CODEINE 12/03/2008 10 - Anaphylaxis 14 - Other: See Comments ERYTHROMYCIN 07/20/2014 2 - Rash 7 - Swelling TORADOL (KETOROLAC) 07/20/2014 9 - Itching Comments: Given with Vicodin at the time of the reaction. VICODIN (HYDROCODONE-ACETAMINOP HE*07/20/2014 9 - Itching Comments: Given with Toradol at the time of the reaction. AMLODIPINE 01/23/2023 14 - Other: See Comments CEFDINIR 12/03/2008 14 - Other: See Comments COPAXONE (GLATIRAMER) 04/01/2023 12 - Shortness of Breath HYDROCODONE 12/03/2008 14 - Other: See Comments JARDIANCE (EMPAGLIFLOZIN) 04/01/2023 14 - Other: See Comments Comments: Chronic yeast infection PENICILLINS 07/20/2014 4 - Hives Date Reviewed: 10/22/2024 Reviewed by: Adriane De Los Santos LPN - Fully Assessed Reason for Visit: Clinical Update [1735] Cmt: Outside medical records including ov notes and imaging results Prescriptions as of 11/03/2024 - celecoxib (CELEBREX) 200 mg capsule Take 1 capsule by mouth two times a day. - lidocaine (SALONPAS) 4 % patch APPLY ONE PATCH AT NIGHT AND LEAVE ON FOR 12 HOURS THEN REMOVE DURING THE DAY - sertraline (ZOLOFT) 50 mg tablet 100 mg. - carvedilol (COREG) 25 mg tablet Take by mouth once daily. - FREESTYLE LUIS MIGUEL 3 SENSOR wilbur CHANGE SENSOR EVERY 14 DAYS - cholecalciferol, Vitamin D3, (VITAMIN D3) 1,250 mcg (50,000 unit) cap capsule Take 1 capsule by mouth one time a week. - TRUE METRIX GLUCOSE TEST STRIP test strip use 1 TEST STRIP to TEST BLOOD SUGAR four times a day - TRUE METRIX GLUCOSE METER as directed. - TRUEPLUS LANCETS 30 gauge use 1 LANCET to TEST BLOOD SUGAR four times a day - cholecalciferol (VITAMIN D3) 50 mcg (2,000 unit) tablet Take 2,000 Units by mouth every afternoon. - tiZANidine (ZANAFLEX) 4 mg tablet Take 4 mg by mouth daily at bedtime. - levothyroxine (SYNTHROID) 150 mcg tablet Take 1 tablet by mouth every afternoon. - insulin lispro (HUMALOG KWIKPEN) 100 unit/mL 12 UNITS SQ TID, using 14 UNITS SQ TID while on steroids - aspirin, enteric coated (ASPIRIN, ENTERIC COATED) 81 mg EC tablet Take 81 mg by mouth once daily. - omega-3 fatty acids/fish oil (FISH OIL-OMEGA-3 FATTY ACIDS) 300-1,000 mg cap Take by mouth. - Multivitamins-Minerals- Lutein (MULTIVITAMIN 50 PLUS) tab Take 1 tablet by mouth once daily. - Ascorbic Acid (VITAMIN C) 1,000 mg tablet Take 1,000 mg by mouth once daily. - diroximel fumarate (VUMERITY) 231 mg capsule, delayed release Take 462 mg by mouth two times a day. - hydroCHLOROthiazide 25 mg tablet Take 12.5 mg by mouth once daily. - rosuvastatin (CRESTOR) 5 mg tablet Take 5 mg by mouth once daily. - insulin glargine (LANTUS SOLOSTAR U-100 INSULIN) 100 unit/mL (3 mL) Inject 32 Units subcutaneously every morning. - gabapentin (NEURONTIN) 600 mg tablet Take 600 mg by mouth three times a day. - losartan (COZAAR) 50 mg tablet Take 50 mg by mouth two times a day. - acetaminophen (TYLENOL) 500 mg tablet Take 1 tablet by mouth every 6 hours as needed. 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*03/19/2017 Spondylolisthesis of lumbar region [M43.16] 03/19/2017 Abnormal electrocardiography [R94.31] 07/17/2023 Diagnosed: 07/17/2023 Candidiasis of vagina [B37.31] 07/17/2023 07/18/2023 Diagnosed: 07/17/2023 Spondylosis of cervical spine [M47.812] 03/09/2022 Diagnosed: 07/17/2023 Chest pain [R07.9] 07/17/2023 Diagnosed: 07/17/2023 Diabetes mellitus (HCC) [E11.9] 01/21/2023 Diagnosed: 07/17/2023 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/2023 Diagnosed: 07/17/2023 Dyspnea on exertion [R06.09] 07/17/2023 Diagnosed: 07/17/2023 Fatigue [R53.83] 11/15/2022 Diagnosed: 07/17/2023 History of cardiac catheterization [Z98.890] 07/30/2018 Diagnosed: 07/17/2023 Hyperlipidemia [E78.5] 01/21/2023 Diagnosed: 07/17/2023 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 [facility] Telephone ([facility]) KVNG LANDRY ([id number]) 1970 F Date Time Provider Department 11/03/24 AYAAN MORELAND [facility] During your visit today, we recorded the following information about you: Sisi Whelan 11/03/2024 12:13 PM Signed Patient is inquiring what questions that she should ask of the MS Provider in regards to the spinal cord stimulator. Allergies As of Date: 11/03/2024 Noted Allergy Reaction CODEINE 12/03/2008 10 - Anaphylaxis 14 - Other: See Comments ERYTHROMYCIN 07/20/2014 2 - Rash 7 - Swelling TORADOL (KETOROLAC) 07/20/2014 9 - Itching Comments: Given with Vicodin at the time of the reaction. VICODIN (HYDROCODONE-ACETAMINOP HE*07/20/2014 9 - Itching Comments: Given with Toradol at the time of the reaction. AMLODIPINE 01/23/2023 14 - Other: See Comments CEFDINIR 12/03/2008 14 - Other: See Comments COPAXONE (GLATIRAMER) 04/01/2023 12 - Shortness of Breath HYDROCODONE 12/03/2008 14 - Other: See Comments JARDIANCE (EMPAGLIFLOZIN) 04/01/2023 14 - Other: See Comments Comments: Chronic yeast infection PENICILLINS 07/20/2014 4 - Hives Date Reviewed: 10/22/2024 Reviewed by: Adriane De Los Santos LPN - Fully Assessed Prescriptions as of 11/03/2024 - celecoxib (CELEBREX) 200 mg capsule Take 1 capsule by mouth two times a day. - lidocaine (SALONPAS) 4 % patch APPLY ONE PATCH AT NIGHT AND LEAVE ON FOR 12 HOURS THEN REMOVE DURING THE DAY - sertraline (ZOLOFT) 50 mg tablet 100 mg. - carvedilol (COREG) 25 mg tablet Take by mouth once daily. - FREESTYLE LUIS MIGUEL 3 SENSOR wilbur CHANGE SENSOR EVERY 14 DAYS - cholecalciferol, Vitamin D3, (VITAMIN D3) 1,250 mcg (50,000 unit) cap capsule Take 1 capsule by mouth one time a week. - TRUE METRIX GLUCOSE TEST STRIP test strip use 1 TEST STRIP to TEST BLOOD SUGAR four times a day - TRUE METRIX GLUCOSE METER as directed. - TRUEPLUS LANCETS 30 gauge use 1 LANCET to TEST BLOOD SUGAR four times a day - cholecalciferol (VITAMIN D3) 50 mcg (2,000 unit) tablet Take 2,000 Units by mouth every afternoon. - tiZANidine (ZANAFLEX) 4 mg tablet Take 4 mg by mouth daily at bedtime. - levothyroxine (SYNTHROID) 150 mcg tablet Take 1 tablet by mouth every afternoon. - insulin lispro (HUMALOG KWIKPEN) 100 unit/mL 12 UNITS SQ TID, using 14 UNITS SQ TID while on steroids - aspirin, enteric coated (ASPIRIN, ENTERIC COATED) 81 mg EC tablet Take 81 mg by mouth once daily. - omega-3 fatty acids/fish oil (FISH OIL-OMEGA-3 FATTY ACIDS) 300-1,000 mg cap Take by mouth. - Multivitamins-Minerals- Lutein (MULTIVITAMIN 50 PLUS) tab Take 1 tablet by mouth once daily. - Ascorbic Acid (VITAMIN C) 1,000 mg tablet Take 1,000 mg by mouth once daily. - diroximel fumarate (VUMERITY) 231 mg capsule, delayed release Take 462 mg by mouth two times a day. - hydroCHLOROthiazide 25 mg tablet Take 12.5 mg by mouth once daily. - rosuvastatin (CRESTOR) 5 mg tablet Take 5 mg by mouth once daily. - insulin glargine (LANTUS SOLOSTAR U-100 INSULIN) 100 unit/mL (3 mL) Inject 32 Units subcutaneously every morning. - gabapentin (NEURONTIN) 600 mg tablet Take 600 mg by mouth three times a day. - losartan (COZAAR) 50 mg tablet Take 50 mg by mouth two times a day. - acetaminophen (TYLENOL) 500 mg tablet Take 1 tablet by mouth every 6 hours as needed. 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*03/19/2017 Spondylolisthesis of lumbar region [M43.16] 03/19/2017 Abnormal electrocardiography [R94.31] 07/17/2023 Diagnosed: 07/17/2023 Candidiasis of vagina [B37.31] 07/17/2023 07/18/2023 Diagnosed: 07/17/2023 Spondylosis of cervical spine [M47.812] 03/09/2022 Diagnosed: 07/17/2023 Chest pain [R07.9] 07/17/2023 Diagnosed: 07/17/2023 Diabetes mellitus (HCC) [E11.9] 01/21/2023 Diagnosed: 07/17/2023 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/2023 Diagnosed: 07/17/2023 Dyspnea on exertion [R06.09] 07/17/2023 Diagnosed: 07/17/2023 Fatigue [R53.83] 11/15/2022 Diagnosed: 07/17/2023 History of cardiac catheterization [Z98.890] 07/30/2018 Diagnosed: 07/17/2023 Hyperlipidemia [E78.5] 01/21/2023 Diagnosed: 07/17/2023 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 Normal [facility] 25(OH)D3 [facility] 2024 25-hydroxyvitamin D3 [Mass/Vol] 50.6 ng/mL Normal >=30.0 [facility] Comment on above: Order Comment: Speci men Type: BLOOD SPECIMENOrdering Facility: [facility] Address: [address] [place], [place] [address] [address] Result Comment: Clas sification of 25 [place] Vitamin D status: Deficiency: <= 20.0 ng/ml. Insufficiency: 21.0-29.0 ng/ml. Sufficiency: >= 30.0 ng/ml. Performed By: #### 1 989-3 ####[facility] LABORATORYCLIA [id number] [place] [id number] [place] ROBBI BY IFA SCREENon 10-23-19 25 Nuclear Ab pattern (S) [Interp] Nuclear homogeneous Normal [facility] Comment on above: Order Comment: Speci men Type: BLOOD SPECIMENOrdering Facility: [facility] Address: [address] [place] [address] Performed By: #### A YON 6457-6 ####[facility] LABCLIA [id number] [address] [place] Nuclear Ab Ql (S) Positive Abnormal Negative [facility] Comment on above: Order Comment: Missy liang Type: BLOOD SPECIMENOrdering Facility: [facility] Address: [address] [place] [address] Result Comment: Anti -nuclear antibody test is used as an aid in diagnosis of systemic autoimmune diseases. Where positive and clinically warranted, follow-up using disease-specific testing is recommended. Low positive titers are not uncommon with advanced age, certain chronic infections, and malignancies among others. Test methodology: Indirect fluorescence immunoassay (IFA) using HEp-2 cells. >1:1280 Performed By: #### A YON, 6457-6 ####[facility] LABCLIA [id number] [place] [address] [place] CBC W Auto Differential pane l (Bld)on 10-22-2024 Basophils (Bld) [#/Vol] 0.05 10*3/uL [facility] Basophils/100 WBC (Bld) 0.3 % C [facility] Differential cell count method Nom (Bld) Auto [facility] Eosinophils (Bld) [#/Vol] 0.05 10*3/uL [facility] Eosinophils/100 WBC (Bld) 0.3 % [facility] Erythrocyte distribution width (RBC) [Ratio] 12.9 % 11.5 - 15.0 % [facility] Hematocrit (Bld) [Volume fraction] 42.1 % 36.0 - 46.0 % [facility] Hemoglobin (Bld) [Mass/Vol] 14.2 g/dL 11.5 - 15.5 g/dL [facility] Immature granulocytes (Bld) [#/Vol] 0.09 10*3/[facility] Immature granulocytes/100 WBC (Bld) 0.6 % [facility] Interpretation and review of laboratory results Abnormal [facility] Lymphocytes (Bld) [#/Vol] 1.18 10*3/uL [facility] Lymphocytes/100 WBC (Bld) 8.2 % [facility] MCH (RBC) [Entitic mass] 29.6 pg 26. 0 - 34.0 pg [facility] MCHC (RBC) [Mass/Vol] 33.7 g/dL 30.5 - 36.0 g/dL [facility] MCV (RBC) [Entitic vol] 87.7 fL 80.0 - 100.0 fL [facility] Monocytes (Bld) [#/Vol] 0.83 10*3/uL [facility] Monocytes/100 WBC (Bld) 5.7 % C [facility] Neutrophils (Bld) [#/Vol] 12.26 10*3/uL High [facility] Neutrophils/100 WBC (Bld) 84.9 % [facility] Nucleated RBC (Bld) [#/Vol] [facility] Nucleated RBC/100 WBC (Bld) [Ratio] 0 % /100 WBC [facility] Platelet mean volume (Bld) [Entitic vol] 9.7 fL 9.0 - 12.7 fL [facility] Platelets (Bld) [#/Vol] 332 10*3/uL [facility] RBC (Bld) [#/Vol] 4.8 10*6/uL 3.90 - 5.2 0 m/uL [facility] WBC (Bld) [#/Vol] 14.46 10*3/uL [facility] Basophils (Bld) [#/Vol] 0.05 10*3/uL Normal <0.11 [facility] Comment on above: Order Comment: Speci men Type: BLOOD SPECIMENOrdering Facility: [facility] Address: [address] [place] [address] Performed By: #### 5 7021-8 ####[facility]ORATORYCLIA [id number] [address] [place] Basophils/100 WBC (Bld) 0.3 % Normal [facility] Comment on above: Order Comment: Speci men Type: BLOOD SPECIMENOrdering Facility: [facility] Address: [address] [place] [address] Performed By: #### 5 7021-8 ####[facility]ORATORYCLIA [id number] [address] STATES OF [facility] Differential cell count method Nom (Bld) Auto Normal [facility] Comment on above: Order Comment: Speci men Type: BLOOD SPECIMENOrdering Facility: [facility] Address: [address] [place] [address] Performed By: #### 5 7021-8 ####[facility] LABORATORYCLIA [id number] [address] [place] Eosinophils (Bld) [#/Vol] 0.05 10*3/uL Normal <0.46 [facility] Comment on above: Order Comment: Speci men Type: BLOOD SPECIMENOrdering Facility: [facility] Address: [address] [place] [address] Performed By: #### 5 7021-8 ####[facility]ORATORYCLIA [id number] [address] Eosinophils/100 WBC (Bld) 0.3 % Normal [facility] Comment on above: Order Comment: Speci men Type: BLOOD SPECIMENOrdering Facility: [facility] Address: [address] [place] [address] Performed By: #### 5 7021-8 ####[facility]ORATORYCLIA [id number] [address] [place] Erythrocyte distribution width (RBC) [Ratio] 12.9 % Normal 11.5-15.0 [facility] Comment on above: Order Comment: Speci men Type: BLOOD SPECIMENOrdering Facility: [facility] Address: [address] [place] [address] Performed By: #### 5 7021-8 ####[facility] LABORATORYCLIA [id number] [address] Hematocrit (Bld) [Volume fraction] 42.1 % Normal 36.0-46.0 [facility] Comment on above: Order Comment: Speci men Type: BLOOD SPECIMENOrdering Facility: [facility] Address: [address] [place] [address] Performed By: #### 5 7021-8 ####[facility] LABORATORYCLIA [id number] [address] OF [place] Hemoglobin (Bld) [Mass/Vol] 14.2 g/dL Normal 11.5-15.5 [facility] Comment on above: Order Comment: Speci men Type: BLOOD SPECIMENOrdering Facility: [facility] Address: [address] [place] [address] Performed By: #### 5 7021-8 ####[facility] LABORATORYCLIA [id number] [address] [place] Immature granulocytes (Bld) [#/Vol] 0.09 10*3/uL Normal <0.10 [facility] Comment on above: Order Comment: Speci men Type: BLOOD SPECIMENOrdering Facility: [facility] Address: [address] [place] [address] Performed By: #### 5 7021-8 ####[facility] LABORATORYCLIA [id number] [address] OF [place] Immature granulocytes/100 WBC (Bld) 0.6 % Normal [facility] Comment on above: Order Comment: Speci men Type: BLOOD SPECIMENOrdering Facility: [facility] Address: [address] [place] [address] Performed By: #### 5 7021-8 ####[facility]ORATORYCLIA [id number] [address] OF [place] Lymphocytes (Bld) [#/Vol] 1.18 10*3/uL Normal 1.00-4.00 [facility] Comment on above: Order Comment: Speci men Type: BLOOD SPECIMENOrdering Facility: [facility] Address: [address] [place] [address] Performed By: #### 5 7021-8 ####[facility] LABORATORYCLIA [id number] [address] Lymphocytes/100 WBC (Bld) 8.2 % Normal [facility] Comment on above: Order Comment: Speci men Type: BLOOD SPECIMENOrdering Facility: [facility] Address: [address] [place] [address] Performed By: #### 5 7021-8 ####[facility] LABORATORYCLIA [id number] [address] [place] MCH (RBC) [Entitic mass] 29.6 pg Normal 26.0-34.0 [facility] Comment on above: Order Comment: Speci men Type: BLOOD SPECIMENOrdering Facility: [facility] Address: [address] [place] [address] Performed By: #### 5 7021-8 ####[facility] LABORATORYCLIA [id number] [address] [place] MCHC (RBC) [Mass/Vol] 33.7 g/dL Normal 30.5-36.0 [facility] Comment on above: Order Comment: Speci men Type: BLOOD SPECIMENOrdering Facility: [facility] Address: [address] [place] [address] Performed By: #### 5 7021-8 ####[facility] LABORATORYCLIA [id number] [address] [place] MCV (RBC) [Entitic vol] 87.7 fL Normal 80.0-100.0 A [facility] Comment on above: Order Comment: Speci men Type: BLOOD SPECIMENOrdering Facility: [facility] Address: [address] [place] [address] Performed By: #### 5 7021-8 ####[facility]ORATORYCLIA [id number] [address] [place] Monocytes (Bld) [#/Vol] 0.83 10*3/uL Normal <0.87 [facility] Comment on above: Order Comment: Speci men Type: BLOOD SPECIMENOrdering Facility: [facility] Address: [address] [place] [address] Performed By: #### 5 7021-8 ####[facility]ORATORYCLIA [id number] [address] Monocytes/100 WBC (Bld) 5.7 % Normal A [facility] Comment on above: Order Comment: Speci men Type: BLOOD SPECIMENOrdering Facility: [facility] Address: [address] [place] [address] Performed By: #### 5 7021-8 ####[facility] LABORATORYCLIA [id number] [address] [place] Neutrophils (Bld) [#/Vol] 12.26 10*3/uL High 1.45-7.50 [facility] Comment on above: Order Comment: Speci men Type: BLOOD SPECIMENOrdering Facility: [facility] Address: [address] [place] [address] Performed By: #### 5 7021-8 ####[facility]ORATORYCLIA [id number] [address] Neutrophils/100 WBC (Bld) 84.9 % Normal [facility] Comment on above: Order Comment: Speci men Type: BLOOD SPECIMENOrdering Facility: [facility] Address: [address] [place] [address] Performed By: #### 5 7021-8 ####[facility]ORATORYCLIA [id number] [address] [place] Nucleated RBC (Bld) [#/Vol] 10*3/uL Normal <0.01 [facility] Comment on above: Order Comment: Speci men Type: BLOOD SPECIMENOrdering Facility: [facility] Address: [address] [place] [address] Performed By: #### 5 7021-8 ####[facility] LABORATORYCLIA [id number] [address] [place] Nucleated RBC/100 WBC (Bld) [Ratio] 0.0 /100 WBC Normal [facility] Comment on above: Order Comment: Speci men Type: BLOOD SPECIMENOrdering Facility: [facility] Address: [address] [place] [address] Performed By: #### 5 7021-8 ####[facility] LABORATORYCLIA [id number] [address] [place] Platelet mean volume (Bld) [Entitic vol] 9.7 fL Normal 9.0-12.7 [facility] Comment on above: Order Comment: Speci men Type: BLOOD SPECIMENOrdering Facility: [facility] Address: [address] [place] [address] Performed By: #### 5 7021-8 ####[facility] LABORATORYCLIA [id number] [address] [place] Platelets (Bld) [#/Vol] 332 10*3/uL Normal 150-400 [facility] Comment on above: Order Comment: Speci men Type: BLOOD SPECIMENOrdering Facility: [facility] Address: [address] [place] [address] Performed By: #### 5 7021-8 ####[facility] LABORATORYCLIA [id number] [place] [address] [place] RBC (Bld) [#/Vol] 4.80 10*6/uL Normal 3.90-5.20 [facility] Comment on above: Order Comment: Speci men Type: BLOOD SPECIMENOrdering Facility: [facility] Address: [address] [place] [address] Performed By: #### 5 7021-8 ####[facility] LABORATORYCLIA [id number] [address] [place] WBC (Bld) [#/Vol] 14.46 10*3/uL High 3.70-11.00 [facility] Comment on above: Order Comment: Missy liang Type: BLOOD SPECIMENOrdering Facility: [facility] Address: [address] [place] [address] Performed By: #### 5 7021-8 ####[facility] LABORATORYCLIA [id number] [address] OF [facility] CK SerPl-cCncon 10-22-2024 CK [Catalytic activity/Vol] 89 U/L Normal 42-196 [facility] Comment on above: Order Comment: Missy liang Type: BLOOD SPECIMENOrdering Facility: [facility] Address: [address] [place] [address] Performed By: #### 2 157-6, 67380-7 ####[facility] LABORATORYCLIA [id number] [address] CNOVon 10-22-2024 CNOV Office Visit (RHBATH ) KVNG LANDRY ([id number]) 1970 F Date Time Provider Department 10/22/24 1:20 PM DYANA MORAN [facility] During your visit today, we recorded the following information about you: Temperature Pulse Respiration Blood pressure 97.3 degrees 67/minute 12/minute 129/85 Weight Height 111.1 kg 1.549 m Dyana Moran MD 10/22/2024 4:30 PM Signed RHEUMATOLOGY NEW PATIENT NOTE REFERRING PHYSICIAN: CHIEF COMPLAINT: Patient presents with: Joint Pain New Patient HPI: Kvng Landry is a 54-year-old female with a history of MS, diabetes, and thyroid disease, presenting with joint pain and swelling. Kvng reports severe arthritis in the right knee and has undergone lower back surgery, which did not alleviate symptoms. She experiences significant swelling and stiffness in her hands, ankles, and feet, particularly in the mornings and after periods of inactivity. The stiffness improves somewhat with movement and hydration in the morning but worsens by the end of the day due to fatigue. She describes the sensation as feeling "bloated" and "crunchy," with difficulty bending and gripping. She also notes stiffness and a "crunchy" sensation in her neck, along with dry eyes and mouth. She has been using Systane eye drops frequently over the past six months due to dryness and itching. She denies any sores in the mouth or nose. Kvng reports hair loss despite normal thyroid function tests and is taking multivitamins but has not tried biotin. She has gained approximately 21 pounds, attributing this to decreased activity following back surgery and frequent falls. She denies any recent changes in weight unrelated to these factors. She experiences paresthesia in her hands and feet, noting an inability to feel her baby toes since 2017. She reports some cephalalgia and vision changes, including tired and dry eyes, but denies double or blurry vision. She experiences a prickly sensation in the sun but denies any rashes that last several days. She reports dry patches on her skin but denies any significant rashes. She notes that her fingertips change color in cold weather, turning blue, white, and red. Kvng has a confirmed diagnosis of MS and is currently on Vumerity. She has a history of positive ROBBI and low-level positive rheumatoid factor but reports that hydroxychloroquine worsened her symptoms when taken twice for a couple of months each time. She denies any history of psoriasis and is unsure of her family history due to being adopted. She reports anxiety and depression, as well as poor sleep, averaging about five hours per night. She is currently taking tizanidine, which helps with sleep, and gabapentin, which she feels is not effective. She denies any gastrointestinal issues such as nausea, diarrhea, or blood in stool but notes that her medications sometimes upset her stomach. Kvng had a pacemaker placed in 2020, which was redone last year. She is currently seeing a new MS doctor and a psychiatrist and is considering a spinal cord stimulator. Smoking status: Tobacco Use: Types: Cigarettes All REVIEW OF SYSTEMS: as noted in HPI Otherwise negative 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HCC) Depression Diabetes mellitus, type 2 (HCC) DVT, lower extremity (HCC) Essential hypertension History of myocardial infarction due to atherothrombotic coronary artery disease Hypothyroidism Malfunction of electrode lead of cardiac pacemaker atrial lead Mixed hyperlipidemia MS (multiple sclerosis) (HCC) Multiple sclerosis (HCC) Presence of cardiac pacemaker [employer] dual-chamber MRI conditional pacemaker system implanted 02/06/2021 for second degree AV block; system extracted (removed) 09/11/2023 due to lead malfunction; new [employer] dual-chamber pacemaker system reimplanted (system will be MRI conditional after 6 weeks post implant) PVC (premature ventricular contraction) RA (rheumatoid arthritis) ([facility]) 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 Baer on 09/11/2023. Systemic lupus erythematosus ([facility]) PAST SURGICAL HISTORY Procedure Laterality Date BASIC PACEMAKER DUAL CHAMBER Left 02/06/2021 [employer] dual-chamber MRI conditional pacemaker system implanted for second degree AV block BASIC PACEMAKER DUAL CHAMBER Left 09/11/2023 [employer]onic dual-chamber pa (more content not included)... Normal [facility] Comprehensive metabolic 2000 panelon 10-22-2024 Albumin [Mass/Vol] 4.4 g/dL Normal 3.9-4.9 [facility] Comment on above: Order Comment: Speci men Type: BLOOD SPECIMENOrdering Facility: [facility] Address: [address] [place] [address] Performed By: #### 2 157-6, 81725-9 ####[facility] LABORATORYCLIA [id number] [place] [address] [place] ALP [Catalytic activity/Vol] 85 U/L Normal 34-123 [facility] Comment on above: Order Comment: Speci men Type: BLOOD SPECIMENOrdering Facility: [facility] Address: [address] [place] [address] Performed By: #### 2 157-6, 35177-1 ####[facility] LABORATORYCLIA [id number] [place] [address] [place] ALT With P-5'-P [Catalytic activity/Vol] 18 U/L Normal 7-38 [facility] Comment on above: Order Comment: Speci men Type: BLOOD SPECIMENOrdering Facility: [facility] Address: [address] [place] [address] Performed By: #### 2 157-6, 72664-5 ####[facility] LABORATORYCLIA [id number] [place] [address] [place] Anion gap [Moles/Vol] 11 mmol/L Normal 8-15 [facility] Comment on above: Order Comment: Speci men Type: BLOOD SPECIMENOrdering Facility: [facility] Address: [address] [place] [address] Performed By: #### 2 157-6, 98187-6 ####[facility] LABORATORYCLIA [id number] [address] [place] AST With P-5'-P [Catalytic activity/Vol] 13 U/L Normal 13-35 [facility] Comment on above: Order Comment: Speci men Type: BLOOD SPECIMENOrdering Facility: [facility] Address: [address] [place] [address] Performed By: #### 2 157-6, 38931-1 ####[facility] LABORATORYCLIA [id number] [place] [address] [place] Bilirubin [Mass/Vol] 0.6 mg/dL Normal 0.2-1.3 [facility] Comment on above: Order Comment: Speci men Type: BLOOD SPECIMENOrdering Facility: [facility] Address: [address] [place] [address] Performed By: #### 2 157-6, 44160-9 ####[facility] LABORATORYCLIA [id number] [address] [place] Calcium [Mass/Vol] 10.0 mg/dL Normal 8.5-10.2 [facility] Comment on above: Order Comment: Speci men Type: BLOOD SPECIMENOrdering Facility: [facility] Address: [address] [place] [address] Performed By: #### 2 157-6, 05655-9 ####[facility] LABORATORYCLIA [id number] [address] STATES OF [facility] Chloride [Moles/Vol] 97 mmol/L Low 98-107 [facility] Comment on above: Order Comment: Speci men Type: BLOOD SPECIMENOrdering Facility: [facility] Address: [address] [place] [address] Performed By: #### 2 157-6, 21151-5 ####[facility] LABORATORYCLIA [id number] [place] [id number] [place] CO2 [Moles/Vol] 28 mmol/L Normal 22-30 [facility] Comment on above: Order Comment: Speci men Type: BLOOD SPECIMENOrdering Facility: [facility] Address: [address] [place] [address] Performed By: #### 2 157-6, 21084-1 ####[facility] LABORATORYCLIA [id number] [address] OF [facility] Creatinine [Mass/Vol] 0.63 mg/dL Normal 0.58-0.96 [facility] Comment on above: Order Comment: Speci men Type: BLOOD SPECIMENOrdering Facility: [facility] Address: [address] [place] [address] Performed By: #### 2 157-6, 40991-9 ####[facility] LABORATORYCLIA [id number] [address] Creatinine and Glomerular filtration rate.predicted panel (S/P/Bld) 106 mL/min/1.73m??? Normal >=60 [facility] Comment on above: Order Comment: Speci men Type: BLOOD SPECIMENOrdering Facility: [facility] Address: [address] [place] [address] Result Comment: Mayr mated Glomerular Filtration Rate (eGFR) is calculated using the 2020 CKD-EPI creatinine equation. This equation utilizes serum creatinine, sex, and age as parameters. The creatinine assay has traceable calibration to isotope dilution-mass spectrometry. Refer to KDIGO guidelines for clinical interpretation. In patients with unstable renal function, e.g. those with acute kidney injury, the eGFR may not accurately reflect actual GFR. Performed By: #### 2 157-6, 81339-5 ####[facility] LABORATORYCLIA [id number] [place] [address] [place] Glucose [Mass/Vol] 148 mg/dL High 74-99 [facility] Comment on above: Order Comment: Missy liang Type: BLOOD SPECIMENOrdering Facility: [facility] Address: [address] [place] [address] Result Comment: The [place] Diabetes Association (ADA) provides guidance for cutoff values for fasting glucose and random glucose. The ADA defines fasting as no caloric intake for at least 8 hours. Fasting plasma glucose results between 100 to 125 mg/dL indicate increased risk for diabetes (prediabetes). Fasting plasma glucose results greater than or equal to 126 mg/dL meet the criteria for diagnosis of diabetes. In the absence of unequivocal hyperglycemia, results should be confirmed by repeat testing. In a patient with classic symptoms of hyperglycemia or hyperglycemic crisis, random plasma glucose results greater than or equal to 200 mg/dL meet the criteria for diagnosis of diabetes. Reference: Standards of Medical Care in Diabetes 2016, [place] Diabetes Association. Diabetes Care. 2016.39(Suppl 1). Performed By: #### 2 157-6, 68113-0 ####[facility] LABORATORYCLIA [id number] [place] [address] [place] Potassium [Moles/Vol] 4.2 mmol/L Normal 3.7-5.1 [facility] Comment on above: Order Comment: Missy liang Type: BLOOD SPECIMENOrdering Facility: [facility] Address: [address] [place] [address] Performed By: #### 2 157-6, 94652-3 ####[facility] LABORATORYCLIA [id number] [place] [address] [place] Protein [Mass/Vol] 7.5 g/dL Normal 6.3-8.0 [facility] Comment on above: Order Comment: Missy liang Type: BLOOD SPECIMENOrdering Facility: [facility] Address: [address] [place] [address] Performed By: #### 2 157-6, 50413-2 ####[facility] LABORATORYCLIA [id number] [place] [address] [place] Sodium [Moles/Vol] 136 mmol/L Normal 136-144 [facility] Comment on above: Order Comment: Speci men Type: BLOOD SPECIMENOrdering Facility: [facility] Address: [address] [place] [address] Performed By: #### 2 157-6, 20884-1 ####[facility] LABORATORYCLIA [id number] [place] [address] [place] Urea nitrogen [Mass/Vol] 12 mg/dL Normal 7-21 [facility] Comment on above: Order Comment: Speci men Type: BLOOD SPECIMENOrdering Facility: [facility] Address: [address] [place] [address] Performed By: #### 2 157-6, 06148-3 ####[facility] LABORATORYCLIA [id number] [place] [address] [place] Creatinine Unsp time (U) [Ma ss/Vol]on 10-22-2024 Creatinine (U) [Mass/Vol] 141.3 mg/dL 42.2 - 237.9 mg/dL [facility] Creatinine (U) [Mass/Vol] 141.3 mg/dL Normal 42.2-237.9 [facility] Comment on above: Order Comment: Speci men Type: URINE SPECIMENOrdering Facility: [facility] Address: [address] [place] [address] Performed By: #### 2 888-6, 12527-6 ####[facility] LABORATORYCLIA [id number] [address] [place] Cyclic citrullinated peptide IgG Qnon 10-22-2024 CCP ANTIBODY IGG QUALITATIVE Negative Normal Negative [facility] Comment on above: Order Comment: Speci men Type: BLOOD SPECIMENOrdering Facility: [facility] Address: [address] [place] [address] Performed By: #### 3 3935-8 ####[facility] LABCLIA [id number] [place] [address] [place] DNA ANTIBODY DS BLDon 2024 DNA ANTIBODY 52 IU/mL Normal <=200 [facility] Comment on above: Order Comment: Speci men Type: BLOOD SPECIMENOrdering Facility: [facility] Address: [address] [place] [address] Result Comment: Nega tive: <200 IU/mL Equivocal: 201-300 IU/mL Moderate Positive: 301-800 IU/mL Strong Positive: >801 IU/mL Performed By: #### D NAAB ####[facility] LABIA [id number] [address] [place] DNA ANTIBODY QUALITATIVE INTERPRETATION Negative Normal Negative [facility] Comment on above: Order Comment: Speci men Type: BLOOD SPECIMENOrdering Facility: [facility] Address: [address] [place] [address] Performed By: #### D NAAB ####[facility] LABIA [id number] [place] [address] [place] KANWAL RESEARCH ARCHAEOLOGIST Ab Ser-aCncon 2024 Ribonucleoprotein extractable nuclear Ab Qn (S) 0.3 AI Normal <1.0 [facility] Comment on above: Order Comment: Speci men Type: BLOOD SPECIMENOrdering Facility: [facility] Address: [address] [place] [address] Performed By: #### 1 8323-6, XSSAB, 02559-8 ####[facility] LABIA [id number] [place] [address] [place] KANWAL SM IgG Ser-aCncon 2024 Richards extractable nuclear IgG Qn (S) <0.2 Normal <1.0 [facility] Comment on above: Order Comment: Speci men Type: BLOOD SPECIMENOrdering Facility: [facility] Address: [address] [place] [address] Performed By: #### 1 8323-6, XSSAB, 55915-6 ####[facility] LABCLIA [id number] [place] [address] [place] No Panel Informationon 10-22 Interpretation and review of laboratory results Normal [facility] PROTEIN RANDOM URINEon 10-22 Protein (U) [Mass/Vol] 15 mg/dL 0 - 20 mg/dL [facility] Prot Ur-mCncon 10-22-2024 Protein (U) [Mass/Vol] 15 mg/dL Normal 0-[address] [facility] Comment on above: Order Comment: Speci men Type: URINE SPECIMENOrdering Facility: [facility] Address: [address] [place] [address] Performed By: #### 2 888-6, 81856-7 ####[facility] LABORATORYCLIA [id number] [place] [address] [place] Rheumatoid fact SerPl-aCncon 10-22-2024 Rheumatoid factor Qn 12 [IU]/mL Normal <16 [facility] Comment on above: Order Comment: Speci men Type: BLOOD SPECIMENOrdering Facility: [facility] Address: [address] [place] [address] Performed By: #### 1 1572-5 ####[facility] LABCLIA [id number] [place] [address] [place] Ribonucleoprotein extractabl e nuclear Ab Qn (S)on 10-22-2024 ANTI-RESEARCH ARCHAEOLOGIST QUAL Negative Normal Negative [facility] Comment on above: Order Comment: Speci men Type: BLOOD SPECIMENOrdering Facility: [facility] Address: [address] [place] [address] Performed By: #### 1 8323-6, XSSAB, 83385-4 ####[facility] LABCLIA [id number] [place] [id number] [place] SJOGREN ABS SSA/SSBon 2024 ANTI-SSB QUAL Negative Normal Negative [facility] Comment on above: Order Comment: Speci men Type: BLOOD SPECIMENOrdering Facility: [facility] Address: [address] [place] [address] Result Comment: Anti -SSB (anti-La) antibody is used as an aid in diagnosis of a variety of systemic autoimmune diseases, especially for Sjogren's syndrome and systemic lupus erythematosus. Clinical correlation is required. Test Methodology: Multiplex flow immunoassay. Performed By: #### 1 8323-6, XSYURIY, 76904-0 ####[facility] LABIA [id number] [place] [address] [place] Sjogrens syndrome-A extractable nuclear Ab Qn (S) <0.2 Normal <1.0 [facility] Comment on above: Order Comment: Speci men Type: BLOOD SPECIMENOrdering Facility: [facility] Address: [address] [place] [address] Performed By: #### 1 8323-6, XSYURIY, 41437-5 ####[facility] [id number] [place] [address] [place] Sjogrens syndrome-B extractable nuclear Ab Qn (S) <0.2 Normal <1.0 [facility] Comment on above: Order Comment: [place] men Type: BLOOD SPECIMENOrdering Facility: [facility] Address: [address] [place] [address] Performed By: #### 1 8323-6, XSSABridget, 56076-0 ####[facility] LABIA [id number] [place] [address] [place] SSA ANTIBODY QUAL Negative Normal Negative [facility] Comment on above: Order Comment: [place] men Type: BLOOD SPECIMENOrdering Facility: [facility] Address: [address] [place] [address] Result Comment: Anti -SSA (anti-Ro) antibody is used as an aid in diagnosis of a variety of systemic autoimmune diseases, Sjogren's syndrome among others. Clinical correlation is required. Test Methodology: Multiplex flow immunoassay. ??? \\X09\\ Performed By: #### 1 8323-6, XSSAB, 21117-2 ####[facility] LABCLIA [id number] [address] [place] Richards extractable nuclear Ig G Qn (S)on 10-22-2024 SM ANTIBODY QUAL Negative Normal Negative [facility] Comment on above: Order Comment: Speci men Type: BLOOD SPECIMENOrdering Facility: [facility] Address: [address] [place] [address] Result Comment: Anti -Sm (Richards) antibody is used as an aid in diagnosis of systemic lupus erythematosus and its presence is associated with renal disease. A negative result cannot rule out systemic lupus erythematosus. Clinical correlation is required. Test Methodology: Multiplex flow immunoassay. Performed By: #### 1 8323-6, XSSAB, 47051-9 ####[facility] LABCLIA [id number] [address] [place] Urinalysis complete panel (U )on 10-22-2024 Bacteria LM.HPF (Urine sed) [#/Area] Few Abnormal None Seen /HPF [facility] Bilirubin Ql (U) Negative Negative [facility] Clarity (Unsp spec) Clear Clear [facility] Color (U) Yellow yellow [facility] Glucose Test strip (U) [Mass/Vol] Negative Trace, Negative [facility] Hemoglobin Ql (U) Negative Negative, Trace [facility] Interpretation and review of laboratory results Abnormal [facility] Ketones Ql (U) Negative Negative, Trace [facility] Leukocyte esterase Test strip Ql (U) Negative Negative, 25 Matthew/uL [facility] Nitrite Ql (U) Negative Negative [facility] pH (U) 6.5 [pH] 5.0 - 8.0 [facility] Protein (U) [Mass/Vol] Negative Trace , Negative [facility] RBC LM.HPF (Urine sed) [#/Area] 0-3 /HPF 0-3 /HPF [facility] Specific gravity (U) [Rel density] 1.025 1.005 - 1.030 [facility] Urobilinogen Ql (U) Normal Normal [facility] WBC LM.HPF (Urine sed) [#/Area] 0-5 /HPF 0-5 /HPF [facility] Bacteria LM.HPF (Urine sed) [#/Area] Few Abnormal None Seen [facility] Comment on above: Order Comment: Speci men Type: URINE SPECIMENOrdering Facility: [facility] Address: [address] [place] [address] Performed By: #### 2 4356-8 ####[facility] LABORATORYCLIA [id number] [address] [place] Bilirubin Ql (U) Negative Normal Negative [facility] Comment on above: Order Comment: Speci men Type: URINE SPECIMENOrdering Facility: [facility] Address: [address] [place] [address] Performed By: #### 2 4356-8 ####[facility]ITAL[facility] [id number] [address] [place] Clarity (Unsp spec) Clear Normal Clear [facility] Comment on above: Order Comment: Speci men Type: URINE SPECIMENOrdering Facility: [facility] Address: [address] [place] [address] Performed By: #### 2 4356-8 ####[facility] LABORATORYCLIA [id number] [address] STATES OF [facility] Color (U) Yellow Normal yellow [facility] Comment on above: Order Comment: Speci men Type: URINE SPECIMENOrdering Facility: [facility] Address: [address] [place] [address] Performed By: #### 2 4356-8 ####[facility] LABORATORYCLIA [id number] [address] OF [place] Glucose Test strip (U) [Mass/Vol] Negative Normal Trace, Negative [facility] Comment on above: Order Comment: Speci men Type: URINE SPECIMENOrdering Facility: [facility] Address: [address] [place] [address] Performed By: #### 2 4356-8 ####[facility] LABORATORYCLIA [id number] [address] [place] Hemoglobin Ql (U) Negative Normal Negative, Trace [facility] Comment on above: Order Comment: Speci men Type: URINE SPECIMENOrdering Facility: [facility] Address: [address] [place] [address] Performed By: #### 2 4356-8 ####[facility] LABORATORYCLIA [id number] [place] [address] [place] Ketones Ql (U) Negative Normal Negative, Trace [facility] Comment on above: Order Comment: Speci men Type: URINE SPECIMENOrdering Facility: [facility] Address: [address] [place] [address] Performed By: #### 2 4356-8 ####[facility] LABORATORYCLIA [id number] [address] Leukocyte esterase Test strip Ql (U) Negative Normal Negative, 25 Matthew/uL [facility] Comment on above: Order Comment: Speci men Type: URINE SPECIMENOrdering Facility: [facility] Address: [address] [place] [address] Performed By: #### 2 4356-8 ####[facility] LABORATORYCLIA [id number] [address] STATES [facility] Nitrite Ql (U) Negative Normal Negative [facility] Comment on above: Order Comment: Speci men Type: URINE SPECIMENOrdering Facility: [facility] Address: [address] [place] [address] Performed By: #### 2 4356-8 ####[facility] LABORATORYCLIA [id number] [place] [address] [place] pH (U) 6.5 [pH] Normal 5.0-8.0 [facility] Comment on above: Order Comment: Speci men Type: URINE SPECIMENOrdering Facility: [facility] Address: [address] [place] [address] Performed By: #### 2 4356-8 ####[facility] LABORATORYCLIA [id number] [place] [address] [place] Protein (U) [Mass/Vol] Negative Normal Trace , Negative [facility] Comment on above: Order Comment: Speci men Type: URINE SPECIMENOrdering Facility: [facility] Address: [address] [place] [address] Performed By: #### 2 4356-8 ####[facility] LABORATORYCLIA [id number] [place] [address] [place] RBC LM.HPF (Urine sed) [#/Area] 0-3 /HPF Normal 0-3 /HPF [facility] Comment on above: Order Comment: Speci men Type: URINE SPECIMENOrdering Facility: [facility] Address: [address] [place] [address] Performed By: #### 2 4356-8 ####[facility]ITALCLIA [id number] [address] [place] Specific gravity (U) [Rel density] 1.025 Normal 1.005-1.030 [facility] Comment on above: Order Comment: Speci men Type: URINE SPECIMENOrdering Facility: [facility] Address: [address] [place] [address] Performed By: #### 2 4356-8 ####[facility] LABORATORYCLIA [id number] [address] STATES [facility] Urobilinogen Ql (U) Normal Normal Normal [facility] Comment on above: Order Comment: Speci men Type: URINE SPECIMENOrdering Facility: [facility] Address: [address] [place] [address] Performed By: #### 2 4356-8 ####[facility] LABORATORYCLIA [id number] [address] [place] WBC LM.HPF (Urine sed) [#/Area] 0-5 /HPF Normal 0-5 /HPF [facility] Comment on above: Order Comment: Speci men Type: URINE SPECIMENOrdering Facility: [facility] Address: [address] [place] [address] Performed By: #### 2 4356-8 ####[facility] LABORATORYCLIA [id number] [place] [id number] [place] XR FOOT 3V AP/LAT/OBL LTon 0 10-22-2024 XR FOOT 3V AP/LAT/OBL LT * * *Final Repo rt* * * DATE OF EXAM: Oct 22 2024 2:54PM [id number] [id number] - XR FOOT 3V AP/LAT/OBL LT / PROCEDURE REASON: Pain in joint, multiple sites * * * * Physician Interpretation * * * * EXAM TITLE: XR FOOT 3V AP/LAT/OBL LT, XR FOOT 3V AP/LAT/OBL RT DATE: 10/22/2024 COMPARISON: None CLINICAL INDICATION/HISTORY: Bilateral foot pain. TECHNIQUE: AP, lateral and oblique views of both feet are present. FINDINGS: No fractures or subluxations are noted. No bony erosions are seen. The joint spaces are well preserved. The mineralization of the bones is normal. There is no significant soft tissue swelling. Bilateral enthesophytes at the plantar fascia insertion. IMPRESSION: Bilateral calcaneal enthesopathy. Otherwise, negative bilateral feet. Technical Training Instructor: PSYCHIATRIC Transcribe Date/Time: Oct 24 2024 12:26P Dictated by : IWONA CALLAHAN MD This examination was interpreted and the report reviewed and electronically signed by: IWONA CALLAHAN MD on Oct 24 2024 12:32PM EST [id number] Normal [facility] XR FOOT 3V AP/LAT/OBL RTon 0 10-22-2024 XR FOOT 3V AP/LAT/OBL RT * * *Final Repo rt* * * DATE OF EXAM: Oct 22 2024 2:54PM [id number] [id number] - XR FOOT 3V AP/LAT/OBL RT / PROCEDURE REASON: Pain in joint, multiple sites * * * * Physician Interpretation * * * * EXAM TITLE: XR FOOT 3V AP/LAT/OBL LT, XR FOOT 3V AP/LAT/OBL RT DATE: 10/22/2024 COMPARISON: None CLINICAL INDICATION/HISTORY: Bilateral foot pain. TECHNIQUE: AP, lateral and oblique views of both feet are present. FINDINGS: No fractures or subluxations are noted. No bony erosions are seen. The joint spaces are well preserved. The mineralization of the bones is normal. There is no significant soft tissue swelling. Bilateral enthesophytes at the plantar fascia insertion. IMPRESSION: Bilateral calcaneal enthesopathy. Otherwise, negative bilateral feet. Technical Training Instructor: SANDEE Transcribe Date/Time: Oct 24 2024 12:26P Dictated by : IWONA CALLAHAN MD This examination was interpreted and the report reviewed and electronically signed by: IWONA CALLAHAN MD on Oct 24 2024 12:32PM EST [id number] Normal [facility] XR HAND 3V PA/LAT/OBL LTon 0 10-22-2024 XR HAND 3V PA/LAT/OBL LT * * *Final Repo rt* * * DATE OF EXAM: Oct 22 2024 2:54PM [id number] [id number] - XR HAND 3V PA/LAT/OBL LT / PROCEDURE REASON: Pain in joint, multiple sites * * * * Physician Interpretation * * * * EXAM TITLE: XR HAND 3V PA/LAT/OBL LT, XR HAND 3V PA/LAT/OBL RT DATE: 10/22/2024 COMPARISON: None. CLINICAL INDICATION/HISTORY: Bilateral hand pain. TECHNIQUE: PA, lateral and oblique of both hands are presented. FINDINGS: No fractures or subluxations are noted. No bony erosions are seen. The joint spaces are well preserved. The mineralization of the bones is normal. There is no significant soft tissue swelling. IMPRESSION: Negative 3 views of both hands. Technical Training Instructor: PSYCHIATRIC Transcribe Date/Time: Oct 24 2024 12:20P Dictated by : IWONA CALLAHAN MD This examination was interpreted and the report reviewed and electronically signed by: IWONA CALLAHAN MD on Oct 24 2024 12:25PM EST [id number] Normal [facility] XR HAND 3V PA/LAT/OBL RTon 0 10-22-2024 XR HAND 3V PA/LAT/OBL RT * * *Final Repo rt* * * DATE OF EXAM: Oct 22 2024 2:54PM [id number] [id number] - XR HAND 3V PA/LAT/OBL RT / PROCEDURE REASON: Pain in joint, multiple sites * * * * Physician Interpretation * * * * EXAM TITLE: XR HAND 3V PA/LAT/OBL LT, XR HAND 3V PA/LAT/OBL RT DATE: 10/22/2024 COMPARISON: None. CLINICAL INDICATION/HISTORY: Bilateral hand pain. TECHNIQUE: PA, lateral and oblique of both hands are presented. FINDINGS: No fractures or subluxations are noted. No bony erosions are seen. The joint spaces are well preserved. The mineralization of the bones is normal. There is no significant soft tissue swelling. IMPRESSION: Negative 3 views of both hands. Technical Training Instructor: SANDEE Transcribe Date/Time: Oct 24 2024 12:20P Dictated by : IWONA CALLAHAN MD This examination was interpreted and the report reviewed and electronically signed by: IWONA CALLAHAN MD on Oct 24 2024 12:25PM EST [id number] Normal [facility] XR SI JTS 2V AP PELV/FERGUSO Non 10-22-2024 XR SI JTS 2V AP PELV/TOTH * * *Final Report* * * DATE OF EXAM: Oct 22 2024 2:54PM [id number] 5245 - XR SI JTS 2V AP PELV/TOTH / PROCEDURE REASON: Pain in joint, multiple sites * * * * Physician Interpretation * * * * EXAM TITLE: SACROILIAC JOINTS, 2 VIEWS DATE: 10/22/2024 COMPARISON: None. CLINICAL INDICATION/HISTORY: Low back pain TECHNIQUE: AP and Toth views of the sacroiliac joints. FINDINGS: SI joints are symmetric. No sclerosis, ankylosis, erosive changes. Osseous sacrum intact. Hip joint spaces preserved. IMPRESSION: Negative sacroiliac joint radiographs. Technical Training Instructor: [facility] HOSPITALBridget Transcribe Date/Time: Oct 24 2024 9:53P Dictated by : IWONA CALLAHAN MD This examination was interpreted and the report reviewed and electronically signed by: IWONA CALLAHAN MD on Oct 24 2024 9:57PM EST [id number] Normal [facility] cCP IgG SerPl-aCncon 025 Cyclic citrullinated peptide IgG Qn <15 Normal <20 [facility] Comment on above: Order Comment: Speci men Type: BLOOD SPECIMENOrdering Facility: [facility] Address: [address] [place], [place] [address] Performed By: #### 3 3935-8 ####[facility] LABCLIA [id number] [place] [address] [place] dsDNA Ab Ser Ql CLIFon 10-22 DNA double strand Ab IF Crithicoltona luciliae Ql (S) Negative Normal Negative [facility] Comment on above: Order Comment: Speci men Type: BLOOD SPECIMENOrdering Facility: [facility] Address: [facility] [place] [address] Result Comment: Crit hidia luciliae assay is used as an aid in diagnosis of systemic lupus erythematosus (SLE). A negative result cannot rule out SLE. Low positive titers may be seen with other systemic autoimmune diseases. Clinical correlation is required. Performed By: #### A NAS, 6457-6 ####[facility] LABCLIA [id number] [address] [place] CNOVon 10-16-2024 CNOV Office Visit (ORMDNA ) KVNG LANDRY ([id number]) 1970 F Date Time Provider Department 10/16/24 3:30 PM STEWART FRANKS ORMDNA During your visit today, we recorded the following information about you: Stewart Franks PA-C 10/16/2024 4:04 PM Signed HISTORY OF PRESENT ILLNESS: Kvng is a 54 year old female. She is here for follow up of Right knee pain. Patient had US in [place] showing cullen's cyst. Spine doctor told her to follow up with me for this. Unfortunately patient had 2-3 days of relief from cortisone injection. Continues to [place] with pain. She is looking to lose weight in hopes of TKA surgery. PAIN EVALUATION 10/15/2024 0918 10/16/2024 1525 Pain Level: -- 7 Pain Location: Knee-Right Knee-Right Description: Burning;Crushing;Pressu re;Radiating;Raw;Sharp; Shooting;Stabbing;Stiff ness; Throbbing;Tightness Aching;Sharp;Dull Duration Amount of Time: 20 -- ongoing Duration Units: Hours -- Frequency: Continuous Continuous Intervention/Comfort measure: Medication;Reposition;C old;Positioning Medication;Reposition;R elaxation Comments: It hurts almost nonstop. Standing is worse and walking. Certain meds are not doing anything -- MEDICATIONS Current Outpatient Medications on File Prior to Visit Medication Sig diclofenac, EC, (VOLTAREN) 75 mg EC tablet Take 1 tablet by mouth two times a day. for pain. lidocaine (SALONPAS) 4 % patch APPLY ONE PATCH AT NIGHT AND LEAVE ON FOR 12 HOURS THEN REMOVE DURING THE DAY sertraline (ZOLOFT) 50 mg tablet 1 tablet every day by oral route. carvedilol (COREG) 25 mg tablet Take by mouth once daily. FREESTYLE LUIS MIGUEL 3 SENSOR wilbur CHANGE SENSOR EVERY 14 DAYS cholecalciferol, Vitamin D3, (VITAMIN D3) 1,250 mcg (50,000 unit) cap capsule Take 1 capsule by mouth one time a week. TRUE METRIX GLUCOSE TEST STRIP test strip use 1 TEST STRIP to TEST BLOOD SUGAR four times a day TRUE METRIX GLUCOSE METER as directed. TRUEPLUS LANCETS 30 gauge use 1 LANCET to TEST BLOOD SUGAR four times a day cholecalciferol (VITAMIN D3) 1,000 unit tab tablet Take 1 tablet by mouth every afternoon. tiZANidine (ZANAFLEX) 4 mg tablet Take 4 mg by mouth daily at bedtime. levothyroxine (SYNTHROID) 150 mcg tablet Take 1 tablet by mouth every afternoon. insulin lispro (HUMALOG KWIKPEN) 100 unit/mL inject 10 units subcutaneously three times a day aspirin, enteric coated (ASPIRIN, ENTERIC COATED) 81 mg EC tablet Take 81 mg by mouth once daily. omega-3 fatty acids/fish oil (FISH OIL-OMEGA-3 FATTY ACIDS) 300-1,000 mg cap Take by mouth. Multivitamins-Minerals- Lutein (MULTIVITAMIN 50 PLUS) tab Take 1 tablet by mouth once daily. Ascorbic Acid (VITAMIN C) 1,000 mg tablet Take 1,000 mg by mouth once daily. diroximel fumarate (VUMERITY) 231 mg capsule, delayed release Take 462 mg by mouth two times a day. hydroCHLOROthiazide 25 mg tablet Take 12.5 mg by mouth once daily. rosuvastatin (CRESTOR) 5 mg tablet Take 5 mg by mouth once daily. insulin glargine (LANTUS SOLOSTAR U-100 INSULIN) 100 unit/mL (3 mL) Inject 32 Units subcutaneously every morning. gabapentin (NEURONTIN) 300 mg capsule Take 600 mg by mouth two times a day. losartan (COZAAR) 50 mg tablet Take 50 mg by mouth two times a day. acetaminophen (TYLENOL) 500 mg tablet Take 1 tablet by mouth every 6 hours as needed. No current facility-administered medications on file prior to visit. ALLERGIES ALLERGIES Allergen Reactions Codeine Anaphylaxis, Other: See Comments Erythromycin Rash, Swelling Toradol [Ketorolac] Itching Given with Vicodin at the time of the reaction. Vicodin [Hydrocodon* Itching Given with Toradol at the time of the reaction. Amlodipine Other: See Comments Cefdinir Other: See Comments Copaxone [Glatirame* Shortness of Breath Hydrocodone Other: See Comments Jardiance [Empaglif* Other: See Comments Chronic yeast infection Penicillins Hives PHYSICAL EXAM: PE: All other systems deferred. GENERAL: Appears healthy, well-nourished, no deformities. HABITUS: Morbidly obese Gait: Antalgic to the right Right: Alignment: Varus deformity, Correctable Range of motion is 0 degrees in extension and 110 degrees of flexion. Extension La degrees Pain with ROM: Yes Effusion: Mild Tender to the palpation of Posterior Knee, Medial femoral condyle, and Medial joint line Pain with patellar compression: Yes Stability: Anterior/Posterior stable and Varus/Valgus stable Hip Exam: flexion to 100+ degrees, full extension, internal/external rotation adequate, and no pain with log roll Neurovascular Status: Sensation Intact, Moves foot and ankle up AND down, and 2+ dorsalis pedis Strength: 5 Skin: Normal RADIOGRAPHS (personally reviewed): advanced right knee OA MRI: none DIAGNOSIS Encounter Diagnosis ICD-10-CM 1. Primary osteoarthritis of right knee M17.11 ENDOCRINE MEDIC (more content not included)... Normal [facility] CNOVon 10-13-2024 CNOV Office Visit (PN) KVNG LANDRY ([id number]) 1970 F Date Time Provider Department 10/13/24 9:00 AM [facility]AN [facility] During your visit today, we recorded the following information about you: Pulse Respiration Blood pressure 81/minute 18/minute 136/79 Ayaan Moreland MD 10/13/2024 9:18 AM Signed [facility] Pain Management Department Consultation Date: October 13, 2024 - 8:50 AM Referring physician: Shawn Everett [address] [facility] [address] Kvng Landry is seen in consultation requested by Dr. Shawn Everett for an opinion regarding chronic lower back and bilateral lower extremity pain. My final recommendations will be communicated back to the requesting physician by way of shared medical record or via US mail. 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HCC) Depression Diabetes mellitus, type 2 (HCC) DVT, lower extremity ([facility]) Essential hypertension History of myocardial infarction due to atherothrombotic coronary artery disease Hypothyroidism Malfunction of electrode lead of cardiac pacemaker atrial lead Mixed hyperlipidemia MS (multiple sclerosis) (HCC) Multiple sclerosis (HCC) Presence of cardiac pacemaker [employer] dual-chamber MRI conditional pacemaker system implanted 02/06/2021 for second degree AV block; system extracted (removed) 09/11/2023 due to lead malfunction; new Med[employer] dual-chamber pacemaker system reimplanted (system will be MRI conditional after 6 weeks post implant) PVC (premature ventricular contraction) RA (rheumatoid arthritis) (HCC) 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 Baer on 09/11/2023. Systemic lupus erythematosus (HCC) Intensity of pain: 4 on a scale of 0-10 NRS. Duration of pain: 8 Years ago. The pain is located Back-Lower and radiates around the hips to the lateral and anterior thighs to the toes bilaterally, right much worse than left. Pain Description and Timing: Continuous Aching, Burning, Numbness, Pressure, Pulsating, Radiating, Shooting, Tenderness, Throbbing, Tightness, Tingling Aggravating Factors: activity, standing, and walking Alleviating Factors: Medication, Reposition, Relaxation, Cold, Heat, Massage, Positioning Interference with: physical activity, work, walking, cooking, household cleaning, and social activities Patient entered comments: stems from the back, back surgery has not helped. Did receive a right knee injection, lasted a week. Still stems from back i believe, due to the amount of numbness and pain that I have Kvng Landry is a 54-year-old female with a history of MS and chronic low back pain, presenting for evaluation of persistent pain and numbness following a recent laminotomy with decompression. Kvng reports chronic low back pain radiating to the anterior and lateral thighs, extending to the toes with associated numbness, particularly in the pinky toes. The right side is significantly worse than the left. She underwent a laminotomy with decompression in August by Dr. Temple, which provided no relief. Her pain history dates back to at least 2016, though symptoms began prior to that. She has a history of MS, diagnosed at age 26, and is currently on disability but working part-time until a replacement is found. Current medications include diclofenac 75 mg BID, gabapentin 600 mg BID, lidocaine patches, and tizanidine 4 mg at bedtime. She recently visited the emergency room to rule out a DVT and was found to have a Cullen's cyst behind one knee. She was prescribed Percocet until her upcoming orthopedic appointment. She also received a steroid injection recently. Prior to surgery, Kvng underwent extensive pain management and physical therapy, which reportedly worsened her symptoms. She received spinal injections, including epidurals, which initially provided relief but were less effective over time. Dr. Temple has suggested evaluation for a spinal cord stimulator. Kvng describes her pain as starting in the low back and radiating around to the anterior and lateral thighs, extending to the toes with associated numbness, particu (more content not included)... Normal [facility] Absolute lymphocyte countOrd ered By: [facility] 10-[facility]-2024 Lymphocytes Auto (Unsp spec) [#/Vol] 0.81 10*3/uL Low 0.83-4.51 [facility] Absolute neutrophil countOrd ered By: [facility] on 10-09-2024 Neutrophils (Bld) [#/Vol] 5.4 10*3/uL 2.0-7.7 [facility] Anion gap in Serum or Plasma Ordered By: [facility] on 10-09-2024 Anion gap [Moles/Vol] 9 mmol/L 5-15 [facility] Automated lymphocyte count a s percentage of total leukocytesOrdered By: [facility] on 10-09-2024 Lymphocytes/100 WBC Auto (Unsp spec) 11.2 % Low 19-41 [facility] BUN/creatinine ratioOrdered By: [facility] on 10-09-2024 Urea nitrogen/Creatinine [Mass ratio] 15.4 mg/mg 10- [facility] Basic Metabolic Profile (BMP )on 10-09-2024 BUN/CRE 15.4 RATIO Normal - [facility] Comment on above: Performed By: #### L 500.2500, L100.0100 #### [facility] [address] [facility] [address] Calcium [Mass/Vol] 9.1 mg/dL Normal 7.6-11.0 [facility] Comment on above: Performed By: #### L 500.2500, L100.0100 #### [facility] [address] [place], [address] Chloride [Moles/Vol] 102 mmol/L Normal 98-108 [facility] Comment on above: Performed By: #### L 500.2500, L100.0100 #### [facility] [address] [place], [address] CO2 [Moles/Vol] 27.6 mmol/L Normal 21.0-32.0 [facility] Comment on above: Performed By: #### L 500.2500, L100.0100 #### [facility] [address] [place], [address] Creatinine [Mass/Vol] 0.64 mg/dL Low 0.70-1.20 [facility] Comment on above: Performed By: #### L 500.2500, L100.0100 #### [facility] [address] [place], [address] GAP 9 Normal 5-15 [facility] Comment on above: Performed By: #### L 500.2500, L100.0100 #### [facility] [address] [place], [address] GFR/1.73 sq M.predicted among non-blacks MDRD (S/P/Bld) [Vol rate/Area] 105 mL/min/{1.73_m2} Normal >60 [facility] Comment on above: Result Comment: mL/m in/1.73m2 CKD-EPI Creatinine Equation (2020) Performed By: #### L 500.2500, L100.0100 #### [facility] [address] [place], [address] Glucose [Mass/Vol] 255 mg/dL High 70-99 [facility] Comment on above: Performed By: #### L 500.2500, L100.0100 #### [facility] [address] [place], [address] Potassium [Moles/Vol] 4.0 mmol/L Normal 3.3-5.1 [facility] Comment on above: Performed By: #### L 500.2500, L100.0100 #### [facility] [address] [place], [address] Sodium [Moles/Vol] 139 mmol/L Normal 133-145 [facility] Comment on above: Performed By: #### L 500.2500, L100.0100 #### [facility] [address] [place], [address] Urea nitrogen [Mass/Vol] 10 mg/dL Normal 4-19 [facility] Comment on above: Performed By: #### L 500.2500, L100.0100 #### [facility] [address] [place], [address] Basophil percentageOrdered B y: Marcello Doe on 10-09-2024 Basophils/100 WBC (Bld) 0.4 % 0-1 [facility] CBC W/Diff, Automatedon Absolute Lymph 0.81 X10 3/uL Low 0.83-4.51 [facility] Comment on above: Performed By: #### L 500.2500, L100.0100 #### [facility] [address] [place], [address] Absolute Neut 5.4 X10 3/uL Normal 2.0-7.7 [facility] Comment on above: Performed By: #### L 500.2500, L100.0100 #### [facility] [address] [place], [address] Basophils/100 WBC (Bld) 0.4 % Normal 0-1 [facility] Comment on above: Performed By: #### L 500.2500, L100.0100 #### [facility] [address] [place], [address] Eosinophils/100 WBC (Bld) 7.9 % High 0-5 [facility] Comment on above: Performed By: #### L 500.2500, L100.0100 #### [facility] [address] [place], [address] Erythrocyte distribution width (RBC) [Ratio] 12.6 % Normal 11.6-14.6 [facility] Comment on above: Performed By: #### L 500.2500, L100.0100 #### [facility] [address] [place], [address] Hematocrit (Bld) [Volume fraction] 37.8 % Normal 37-47 [facility] Comment on above: Performed By: #### L 500.2500, L100.0100 #### [facility] [address] [place], [address] Hemoglobin (Bld) [Mass/Vol] 12.9 g/dL Normal 12.0-15.0 [facility] Comment on above: Performed By: #### L 500.2500, L100.0100 #### [facility] [address] [place], [address] IG% 0.300 Normal 0.0-0.9 [facility] Comment on above: Result Comment: IG% - Immature Granulocytes (promyelocytes, myelocytes and metamyelocytes) > 1% indicates that a LEFT SHIFT is Present. Performed By: #### L 500.2500, L100.0100 #### [facility] [address] [place], [address] Lymphocytes/100 WBC (Bld) 11.2 % Low 19-41 [facility] Comment on above: Performed By: #### L 500.2500, L100.0100 #### [facility] [address] [place], [address] MCH (RBC) [Entitic mass] 30.0 pg Normal 27.0-32.0 [facility] Comment on above: Performed By: #### L 500.2500, L100.0100 #### [facility] [address] [place], [address] MCHC (RBC) [Mass/Vol] 34.1 g/dL Normal 32-36 [facility] Comment on above: Performed By: #### L 500.2500, L100.0100 #### [facility] [address] [place], [address] MCV (RBC) [Entitic vol] 87.9 fL Normal 81-99 [facility] Comment on above: Performed By: #### L 500.2500, L100.0100 #### [facility] [address] [place], [address] Monocytes/100 WBC (Bld) 5.7 % Normal 0-10 [facility] Comment on above: Performed By: #### L 500.2500, L100.0100 #### [facility] [address] [place], [address] Neutrophils/100 WBC (Bld) 74.5 % High 47-70 [facility] Comment on above: Performed By: #### L 500.2500, L100.0100 #### [facility] [address] [place], [address] Nucleated RBC (Bld) [#/Vol] 0 10*3/uL Normal 0-5 [facility] Comment on above: Performed By: #### L 500.2500, L100.0100 #### [facility] [address] [place], [address] Platelet mean volume (Bld) [Entitic vol] 9.4 fL Normal 6.2-12.0 [facility] Comment on above: Performed By: #### L 500.2500, L100.0100 #### [facility] [address] [place], [address] Platelets (Bld) [#/Vol] 264 10*3/uL Normal 150-450 [facility] Comment on above: Performed By: #### L 500.2500, L100.0100 #### [facility] [address] [place], [address] RBC (Bld) [#/Vol] 4.30 10*6/uL Normal 4.2-5.4 [facility] Comment on above: Performed By: #### L 500.2500, L100.0100 #### [facility] [address] [place], [address] RDW SD 40.5 fl Normal 35.1-43.9 [facility] Comment on above: Performed By: #### L 500.2500, L100.0100 #### [facility] [address] [place], [address] WBC (Bld) [#/Vol] 7.2 10*3/uL Normal 4.4-11.0 [facility] Comment on above: Performed By: #### L 500.2500, L100.0100 #### [facility] [address] [place], [address] CNPNon 10-09-2024 [facility] Telephone (ORMDNA) KVNG LANDRY ([id number]) 1970 F Date Time Provider Department 10/09/24 STEWART FRANKS During your visit today, we recorded the following information about you: Estrella Dean 10/09/2024 2:02 PM Signed Patient was seen recently in the ED for right knee pain. She would like to make a follow-up with Stewart Franks PA-C. Patient can be reached at [phone]. Thank you. Estrella King Med Sedc Edd, Nilda 10/09/2024 2:59 PM Signed Pt is man Nilda Edd Allergies As of Date: 10/09/2024 Noted Allergy Reaction CODEINE 12/03/2008 10 - Anaphylaxis 14 - Other: See Comments ERYTHROMYCIN 07/20/2014 2 - Rash 7 - Swelling TORADOL (KETOROLAC) 07/20/2014 9 - Itching Comments: Given with Vicodin at the time of the reaction. VICODIN (HYDROCODONE-ACETAMINOP HE*07/20/2014 9 - Itching Comments: Given with Toradol at the time of the reaction. AMLODIPINE 01/23/2023 14 - Other: See Comments CEFDINIR 12/03/2008 14 - Other: See Comments COPAXONE (GLATIRAMER) 04/01/2023 12 - Shortness of Breath HYDROCODONE 12/03/2008 14 - Other: See Comments JARDIANCE (EMPAGLIFLOZIN) 04/01/2023 14 - Other: See Comments Comments: Chronic yeast infection PENICILLINS 07/20/2014 4 - Hives Date Reviewed: 09/22/2024 Reviewed by: Tenisha Laughlin MA - Fully Assessed Reason for Visit: Appointment [186] Cmt: Follow-up right knee pain. Prescriptions as of 10/09/2024 - diclofenac, EC, (VOLTAREN) 75 mg EC tablet Take 1 tablet by mouth two times a day. for pain. - lidocaine (SALONPAS) 4 % patch APPLY ONE PATCH AT NIGHT AND LEAVE ON FOR 12 HOURS THEN REMOVE DURING THE DAY - sertraline (ZOLOFT) 50 mg tablet 1 tablet every day by oral route. - carvedilol (COREG) 25 mg tablet Take by mouth once daily. - FREESTYLE LUIS MIGUEL 3 SENSOR wilbur CHANGE SENSOR EVERY 14 DAYS - cholecalciferol, Vitamin D3, (VITAMIN D3) 1,250 mcg (50,000 unit) cap capsule Take 1 capsule by mouth one time a week. - TRUE METRIX GLUCOSE TEST STRIP test strip use 1 TEST STRIP to TEST BLOOD SUGAR four times a day - TRUE METRIX GLUCOSE METER as directed. - TRUEPLUS LANCETS 30 gauge use 1 LANCET to TEST BLOOD SUGAR four times a day - cholecalciferol (VITAMIN D3) 1,000 unit tab tablet Take 1 tablet by mouth every afternoon. - tiZANidine (ZANAFLEX) 4 mg tablet Take 4 mg by mouth daily at bedtime. - levothyroxine (SYNTHROID) 150 mcg tablet Take 1 tablet by mouth every afternoon. - insulin lispro (HUMALOG KWIKPEN) 100 unit/mL inject 10 units subcutaneously three times a day - aspirin, enteric coated (ASPIRIN, ENTERIC COATED) 81 mg EC tablet Take 81 mg by mouth once daily. - omega-3 fatty acids/fish oil (FISH OIL-OMEGA-3 FATTY ACIDS) 300-1,000 mg cap Take by mouth. - Multivitamins-Minerals- Lutein (MULTIVITAMIN 50 PLUS) tab Take 1 tablet by mouth once daily. - Ascorbic Acid (VITAMIN C) 1,000 mg tablet Take 1,000 mg by mouth once daily. - diroximel fumarate (VUMERITY) 231 mg capsule, delayed release Take 462 mg by mouth two times a day. - hydroCHLOROthiazide 25 mg tablet Take 12.5 mg by mouth once daily. - rosuvastatin (CRESTOR) 5 mg tablet Take 5 mg by mouth once daily. - insulin glargine (LANTUS SOLOSTAR U-100 INSULIN) 100 unit/mL (3 mL) Inject 32 Units subcutaneously every morning. - gabapentin (NEURONTIN) 300 mg capsule Take 600 mg by mouth two times a day. - losartan (COZAAR) 50 mg tablet Take 50 mg by mouth two times a day. - acetaminophen (TYLENOL) 500 mg tablet Take 1 tablet by mouth every 6 hours as needed. 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*03/19/2017 Spondylolisthesis of lumbar region [M43.16] 03/19/2017 Abnormal electrocardiography [R94.31] 07/17/2023 Diagnosed: 07/17/2023 Candidiasis of vagina [B37.31] 07/17/2023 07/18/2023 Diagnosed: 07/17/2023 Spondylosis of cervical spine [M47.812] 03/09/2022 Diagnosed: 07/17/2023 Chest pain [R07.9] 07/17/2023 Diagnosed: 07/17/2023 Diabetes mellitus (HCC) [E11.9] 01/21/2023 Diagnosed: 07/17/2023 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/2023 Diagnosed: 07/17/2023 Dyspnea on exertion [R06.09] 07/17/2023 Diagnosed: 07/17/2023 Fatigue [R53.83] 11/15/2022 Diagnosed: 07/17/2023 History of cardiac catheterization [Z98.890] 07/30/2018 Diagnosed: 07/17/2023 Hyperlipidemia [E78.5] 01/21/2023 Diagnosed: 07/17/2023 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 Normal [facility] Carbon dioxide, total [Moles /volume] in Central venous bloodOrdered By: Marcello Doe on 10-09-2024 CO2 [Moles/Vol] 27.6 mmol/L 21.0-32.0 [facility] Chest PA and Lateralon 10-09 Chest PA and Lateral [facility] Services [address] [place] [address] [id number] Chest PA and Lateral MR#: [id number] Acct: [id number] Name: KVNG LANDRY LEXI Rep #: [id number] : 1970 F 54 From: Jimmy Lew PCP: Dr. Elmer Richards MD Status: [facility] Study: Chest PA and Lateral Date of Exam: 10/09/24 Exam# [id number] Ordering Dr: Marcello Doe MD PROCEDURE: CHEST PA AND LATERAL 10/09/2024 REASON FOR EXAM: UPPER RESPIRATORY SYMPTOMS WITH SHORTNESS OF BREAT TECHNIQUE: Frontal and lateral views of the chest. COMPARISON: PA and lateral chest x-ray 03/12/2023. RAD/Chest PA and Lateral IMPRESSION: Examination limited by AP portable technique, hypoinflation, body habitus, and patient motion. A left thoracic transvenous pacemaker with atrial and ventricular leads remains in place. Although lungs are hypoinflated, no acute pneumonic process is appreciated. No pleural effusion or pneumothorax is seen. The cardiomediastinal silhouette is stable, without evidence of cardiomegaly. Mild thoracic spine degenerative changes are seen. Reading Location: [address] CC: Dr. Elmer Richards MD; Dr. Marcello Doe MD Technical Training Instructor: Signed Normal [facility] Chloride assayOrdered By: Lisa Doe on 10-09-2024 Chloride [Moles/Vol] 102 mmol/L 98-108 [facility] Emergency Department Summary on 10-09-2024 Emergency Department Summary [facility] Medical Records Department [address] [place] [address] Emergency Department Summary 10/09/24 MR#: [id number] Acct: [id number] Name: KVNG LANDRY Rep #: [id number] : 1970 54 From: Marcello Doe MD PCP: Dr. Elmer Richards MD Status:REG ER Location: ED HPI History of Present Illness Chief Complaint: Edema Detail of Chief Complaint: Right leg pain and swelling and respiratory symptoms Informant: patient Onset/Context/Timing Onset: Days (Cough and congestion started 3 days ago) and Weeks (Leg pain and swelling started approximate week ago) Context: Sudden Onset Timing: Continuous (Leg pain has been constant located proximal calf popliteal fossa) and Intermittent (Respiratory symptoms been intermittent) Quality: Pain Location: Posterior leg on the right Current Severity: Mild Maximum Severity: Moderate Worsened by: Palpation Relieved by: Nothing Associated Symptoms Associated Symptoms: HPI narrative Narrative Narrative: Patient is a 54-year-old woman. She is status post microdiscectomy beginning of Nery L4-L5 for herniated disc. She contacted her surgeon. Because she has been complaining of leg pain swelling and reported shortness of breath he recommended she come to the emergency room for evaluation. She denies fever, chills night sweats. She denies rhinorrhea or postnasal drainage. She denies sore throat. Her cough is nonproductive. She denies chest pressure, tightness or heaviness. She denies pleuritic chest pain. She denies GI symptoms. She denies prior history of DVT or PE. She is presently on a baby aspirin. She is on no anticoagulant. 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 Obesity Anxiety Thyroid disease Rheumatoid arthritis Anemia Easy bruising Excessive bleeding Migraine headache Back pain Hx of vertigo Multiple sclerosis Dietary restriction Former smoker Shortness of breath on exertion History of pain when walking History of edema Cardiology follow-up encounter Mobitz type 2 second degree AV block Arthritis Seasonal allergies Coronary-myocardial bridge Abnormal electrocardiogram Vitamin D deficiency Hypothyroidism Essential (primary) hypertension Spinal stenosis Uncontrolled diabetes mellitus with microalbuminuria Type 2 diabetes mellitus Cervicalgia Hyperlipidemia Insomnia Right bundle branch block (RBBB) Home Medications ???Medication ???Instructions ???Recorded ???Last Taken ???Type tizanidine 4 mg capsule 4 mg PO QHS muscle spasms 01/16/21 Unknown History lancing device with lancets kit #1 ea 03/11/23 Unknown Rx (Accu-Chek FastClix Lancing Device kit) blood sugar diagnostic (Accu-Chek #150 ea 07/08/23 Unknown Rx Guide test strips) blood-glucose meter (Accu-Chek #1 ea 07/08/23 Unknown Rx Guide Glucose Meter) lancets (Accu-Chek Fastclix Lancet #200 ea 07/08/23 Unknown Rx Drum) aspirin 81 mg tablet,delayed 81 mg PO DAILY 07/12/23 Unknown Hi story release (Adult Low Dose Aspirin) rosuvastatin 5 mg tablet 5 mg PO DAILY #90 tabs 11/22/23 Un known Rx diclofenac sodium 50 mg 50 mg PO TID 01/01/24 Unknown Hist ory tablet,delayed release semaglutide 0.25 mg or 0.5 mg (2 0.5 mg (0.736 mL) subcut QWEEK #3 01/01/24 Unknown Rx mg/3 mL) subcutaneous pen injector mL (Ozempic) insulin lispro 100 unit/mL 15 unit (0.15 mL) subcut TID #40.5 05/11/24 Unknown Rx subcutaneous pen (Humalog KwikPen mL (U-100) Insulin) blood-glucose sensor (FreeStyle #2 ea 05/18/24 Unknown Rx Luis Miguel 3 Sensor device) modafinil 200 mg tablet 200 mg PO QDAY 05/18/24 Unknown Hi story sertraline 50 mg tablet 50 mg PO QDAY 05/18/24 Unknown His tory levothyroxine 150 mcg tablet 150 mcg PO DAILY thyroid #90 tabs 05/28/24 Unknown Rx pen needle, diabetic 32 gauge x #400 ea 07/03/24 Unknown Rx 32" (BD Ultra-Fine Rin Pen Needle) cholecalciferol (vitamin D3) 50 50 mcg PO QDAY #90 caps 07/15/24 U nknown Rx mcg (2,000 unit) capsule carvedilol 25 mg tablet 12.5 mg (1/2 x 25 mg) PO BID #60 0 07/28/24 Unknown Rx tabs losartan 50 mg tablet 50 mg PO QDAY #180 tabs 07/28/24 U nknown Rx blood sugar diagnostic (True #50 ea 08/04/24 Unknown Rx Metrix Glucose Test Strip) blood-glucose meter (True Metrix #1 ea 08/04/24 Unknown Rx Glucose Meter) lancets 30 gauge (BD Microtainer #100 ea 08/04/24 Unknown Rx Lancet) acetaminophen 500 mg tablet 1,000 mg PO BID PRN 08/06/24 Unkno wn History (Tylenol Extra Strength) diroximel fumarate 231 mg 462 (more content not included)... Normal [facility] Eosinophil percentageOrdered By: Marcello Doe on 10-09-2024 Eosinophils/100 WBC (Bld) 7.9 % High 0-5 [facility] Erythrocyte distribution wid th ratioOrdered By: Marcello Doe on 10-09-2024 Erythrocyte distribution width (RBC) [Ratio] 12.6 % 11.6-14.6 [facility] Erythrocyte distribution wid th standard deviationOrdered By: Marcello Doe on 10-09-2024 Erythrocyte distribution width (RBC) [Ratio] 40.5 fl 35.1-43.9 [facility] Glomerular filtration rate ( GFR) estimation/1.73 sq m using serum, plasma, or whole bOrdered By: Marcello Doe on 10-09-2024 GFR/1.73 sq M.predicted among non-blacks MDRD (S/P/Bld) [Vol rate/Area] 105 mL/min/{1.73_m2} >60 [facility] Comment on above: mL/min/1.73m2 CKD-EP I Creatinine Equation (2020) Hematocrit Auto (Bld) [Volum e fraction][facility] By: [facility] 10-[facility] Hematocrit (Bld) [Volume fraction] 37.8 % 37-47 [facility] Hemoglobin measurementOrdere d By: Marcellofariba Doe on 10-09-2024 Hemoglobin (Bld) [Mass/Vol] 12.9 g/dL 12.0-15.0 [facility] Immature granulocytes/100 WB C Auto (Bld)Ordered By: [facility] on 10-09-2024 Immature granulocytes/100 WBC (Bld) 0.300 % 0.0-0.9 [facility] Comment on above: IG% - Immature Granu locytes (promyelocytes, myelocytes and metamyelocytes) > 1% indicates that a LEFT SHIFT is Present. MCV (mean corpuscular volume ) determinationOrdered By: [facility] on 10-09-2024 MCV (RBC) [Entitic vol] 87.9 fL 81-99 [facility] Mean corpuscular hemoglobin (MCH) determinationOrdered By: [facility] 10-09-2024 MCH (RBC) [Entitic mass] 30.0 pg 27.0-32.0 [facility] Mean corpuscular hemoglobin concentration (MCHC) determinationOrdered By: [facility] on 10-09-2024 MCHC (RBC) [Mass/Vol] 34.1 g/dL 32-36 [facility] Mean platelet volume determi nationOrdered By: [facility] on 10-09-2024 Platelet mean volume (Bld) [Entitic vol] 9.4 fL 6.2-12.0 [facility] Monocyte percentageOrdered B y: Marcellofariba Doe on 10-09-2024 Monocytes/100 WBC (Bld) 5.7 % 0-10 [facility] Neutrophil percentageOrdered By: [facility] Doe on 10-09-2024 Neutrophils/100 WBC (Bld) 74.5 % High 47-70 [facility] Nucleated red blood cell per centageOrdered By: Marcellofariba Doe on 10-09-2024 Nucleated RBC/100 WBC (Bld) [Ratio] 0 % 0-5 [facility] Platelet countOrdered By: [facility] Nader on 10-09-2024 Platelets (Bld) [#/Vol] 264 10*3/uL 150-450 [facility] Potassium measurement (mass/ volume)Ordered By: Marcellofariba Doe on 10-09-2024 Potassium (Unsp spec) [Mass/Vol] 4.0 mmol/L 3.3-5.1 [facility] RBC Auto (Bld) [#/Vol]Ordere d By: Marcellofariba Doe on 10-09-2024 RBC (Bld) [#/Vol] 4.30 10*6/uL 4.2-5.4 [facility] Serum creatinine measurement (mass/volume)Ordered By: Marcello Doe on 10-09-2024 Creatinine [Mass/Vol] 0.64 mg/dL Low 0.70-1.20 [facility] Serum glucose measurement (m ass/volume)Ordered By: Marcello Doe on 10-09-2024 Glucose [Mass/Vol] 255 mg/dL High 70-99 [facility] Serum or plasma calcium danna urement (mass/volume)Ordered By: Marcello Doe on 10-09-2024 Calcium [Mass/Vol] 9.1 mg/dL 7.6-11.0 [facility] Serum or plasma urea nitroge n measurement (mass/volume)Ordered By: Marcello Doe on 10-09-2024 Urea nitrogen [Mass/Vol] 10 mg/dL 4-19 [facility] Sodium levelOrdered By: [facility] on 10-09-2024 Sodium [Moles/Vol] 139 mmol/L 133-145 [facility] Venous Duplex US, Unilateral on 10-09-2024 Venous Duplex US, Unilateral [facility] [address] [place] [address] Venous Duplex US, Unilateral 10/09/24 1127 MR#: [id number] Acct: [id number] Name: KVNG LANDRY LEXI Rep #: [id number] : 1970 54 From: Major Hodge MD Attending Dr: Status: DEP ER Ordering Dr: Marcello Doe MD Date: 10/09/24 Location: ED Sex: F C Admitted: Reason For Study Reason For Study: RLE PAin / Swelling RIGHT LEFT GSV is normal. CFV is compressible, spontaneous, phasic, competent, CFV is compressible, spontaneous, phasic, competent and demonstrates normal augmentation. and demonstrates normal augmentation. FV is compressible, spontaneous, phasic, competent and demonstrates normal augmentation. POP V is compressible, spontaneous, phasic, competent and demonstrates normal augmentation. T/P Trunk is compressible. PTV is compressible. RT PerV is compressible. Anechoic Nonvascularized area measuring approximately 5.23cm x 1.76cm noted in Rt Pop Fossa. Procedure This is a venous duplex using B-mode, color flow and spectral Doppler. Exam performed portable in ED. The exam was diagnostic. A preliminary report was called and/or faxed to Dr. Doe. VL/Venous Duplex US, Unilateral Interpretation Summary Deep veins of the right lower extremity are patent and compressible segmentally. There is no evidence of right lower extremity deep vein thrombosis. Valvular competence appears intact within the proximal deep venous system on the right . The right great saphenous vein appears patent and compressible segmentally. A non-vascular, anechoic structure is noted in the right popliteal space, measuring 5.23 cm x 1.76 cm. This probably represents a popliteal cyst. Clinical correlation is advised. The left common femoral vein is patent and compressible . Ordering Physician: Marcello Doe Referring Physician: Elmer Richards MD Performed By: Yadiel Jensen, RVT 10/09/242037 Date Major Hodge MD CC: Dr. Elmer Richards MD; Dr. Marcello Doe MD Date Dictated: 10/09/241126 Date Transcribed: 10/09/242037 Technical Training Instructor: Signed Normal [facility] White blood cell (WBC) count Ordered By: Marcello Doe on 10-09-2024 WBC (Bld) [#/Vol] 7.2 10*3/uL 4.4-11.0 [facility] .Auto Diffon 10-07-2024 Basophil, Absolute 0.1 10 3/mcL Normal 0.0-0.3 [facility] Comment on above: Performed By: #### E SR, CK, CRP #### [address] [address] Basophils/100 WBC (Bld) 1.1 % Normal 0.0-2.5 [facility] Comment on above: Performed By: #### E SR, CK, CRP #### [address] [address] Eosinophil, Absolute 0.5 10 3/mcL Normal 0.0-0.7 [facility] Comment on above: Performed By: #### E SR, CK, CRP #### [address] [address] Eosinophils/100 WBC (Bld) 7.0 % High 0.0-6.0 [facility] Comment on above: Performed By: #### E SR, CK, CRP #### [address] [address] Lymphocyte, Absolute 1.2 10 3/mcL Normal 0.9-4.3 [facility] Comment on above: Performed By: #### E SR, CK, CRP #### [address] [address] Lymphocytes/100 WBC (Bld) 17.9 % Low 20.0-40.0 [facility] Comment on above: Performed By: #### E SR, CK, CRP #### [address] [address] Monocyte, Absolute 0.4 10 3/mcL Normal 0.1-1.4 [facility] Comment on above: Performed By: #### E SR, CK, CRP #### [address] [address] Monocytes/100 WBC (Bld) 6.1 % Normal 2.0-13.0 [facility] Comment on above: Performed By: #### E SR, CK, CRP #### [address] [address] Neutrophils/100 WBC (Bld) 67.9 % Normal 50.0-75.0 [facility] Comment on above: Performed By: #### E SR, CK, CRP #### [address] [address] .GFRon 10-07-2024 Estimated Glomerular Filtration Rate 104 ml/min/1.73sqm Normal [facility] Comment on above: Result Comment: Stages of Chronic Kidney Disease (CKD) Stage Description eGFR(ml/min/1.73 sq.m.) CKD 1 Normal kidney function or >=90 normal kindney function with possible kidney damage (ex. Proteinuria) CKD 2 Kidney damage with mild loss 60-89 of kidney function CKD 3a Mild to moderate loss of kidney 45-59 function CKD 3b Moderate to severe loss of 30-44 of kindey function CKD 4 Severe loss of kidney function 15-29 CKD 5 Kidney failure <15 Note: (go live 2024) the eGFR calculation was updated to the 2020 CKD-EPI creatinine equation without a race factor to calculate the eGFR results. Performed By: #### E SR, CK, CRP #### [address] [address] .NEUABSon 10-07-2024 Neutrophil, Absolute 4.7 10 3/mcL Normal 2.3-8.1 [facility] Comment on above: Performed By: #### E SR, CK, CRP #### [address] [address] CBCon 10-07-2024 Erythrocyte distribution width (RBC) [Ratio] 13.2 % Normal 11.5-15.5 [facility] Comment on above: Performed By: #### MARIE Mustafa SR CRP #### [address] [address] Hematocrit (Bld) [Volume fraction] 38.3 % Normal 34.0-46.0 [facility] Comment on above: Performed By: #### MARIE Mustafa SR, CRP #### [address] [address] Hgb 12.9 G/dL Normal 12.0-16.0 [facility] Comment on above: Performed By: #### MARIE Mustafa SR CRP #### [address] [address] MCH (RBC) [Entitic mass] 29.7 pg Normal 27.0-33.0 [facility] Comment on above: Performed By: #### MARIE Mustafa SR CRP #### [address] [address] MCHC 33.6 G/dL Normal 32.0-36.0 [facility] Comment on above: Performed By: #### MARIE Mustafa SR CRP #### [address] [address] MCV (RBC) [Entitic vol] 88.3 fL Normal 80.0-99.0 [facility] Comment on above: Performed By: #### MARIE Mustafa SR, CRP #### [address] [address] Platelet 291 10 3/mcL Normal 150-450 [facility] Comment on above: Performed By: #### MARIE Mustafa SR, CRP #### [address] [address] Platelet mean volume (Bld) [Entitic vol] 8.0 fL Normal 6.6-10.5 [facility] Comment on above: Performed By: #### MARIE Mustafa SR, CRP #### [address] [address] RBC 4.34 10 6/mcL Normal 4.10-5.30 [facility] Comment on above: Performed By: #### E SR, CK, CRP #### [address] [address] WBC 6.9 10 3/mcL Normal 4.5-10.8 [facility] Comment on above: Performed By: #### E SR, CK, CRP #### [address] [address] CKon 10-07-2024 CK [Catalytic activity/Vol] 141 U/L Normal 26-192 [facility] Comment on above: Performed By: #### E SR, CK, CRP #### [address] [address] CMPon 10-07-2024 Albumin Level 3.3 G/dL Low 3.5-5.0 [facility] Comment on above: Performed By: #### E SR, CK, CRP #### [address] [address] Albumin/Globulin [Mass ratio] 0.9 {ratio} Low 1.1-2.5 [facility] Comment on above: Performed By: #### E SR, CK, CRP #### [address] [address] ALP [Catalytic activity/Vol] 92 U/L Normal 40-135 [facility] Comment on above: Performed By: #### E SR, CK, CRP #### [address] [address] ALT [Catalytic activity/Vol] 27 U/L Normal 14-59 [facility] Comment on above: Performed By: #### E SR, CK, CRP #### [address] [address] AST [Catalytic activity/Vol] 14 U/L Normal 10-40 [facility] Comment on above: Performed By: #### E SR, CK, CRP #### [address] [address] Bili Total 0.6 mg/dL Normal 0.2-1.0 [facility] Comment on above: Result Comment: Use of this assay is not recommended for patients undergoing treatment with eltrombopag due to the potential for falsely elevated results. Performed By: #### E SR, CK, CRP #### [address] [address] BUN/Creatinine Ratio 18 ratio Normal 7-27 [facility] Comment on above: Performed By: #### E SR, CK, CRP #### [address] [address] Calcium [Mass/Vol] 9.0 mg/dL Normal 8.4-10.2 [facility] Comment on above: Performed By: #### E SR, CK, CRP #### [address] [address] Chloride [Moles/Vol] 99 mmol/L Normal 98-107 [facility] Comment on above: Performed By: #### E SR, CK, CRP #### [address] [address] CO2 [Moles/Vol] 30 mmol/L High 22-29 [facility] Comment on above: Performed By: #### E SR, CK, CRP #### [address] [address] Creatinine [Mass/Vol] 0.66 mg/dL Normal 0.51-0.95 [facility] Comment on above: Performed By: #### E SR, CK, CRP #### [address] [address] Electrolyte Balance 10.0 mEq/L Normal 4.0-15.0 [facility] Comment on above: Performed By: #### E SR, CK, CRP #### [address] [address] Globulin 3.5 G/dL Normal 2.7-4.4 [facility] Comment on above: Performed By: #### E SR, CK, CRP #### [address] [address] Glucose [Mass/Vol] 282 mg/dL High 70-105 [facility] Comment on above: Performed By: #### E SR, CK, CRP #### [address] [address] Potassium [Moles/Vol] 3.9 mmol/L Normal 3.5-5.1 [facility] Comment on above: Performed By: #### E SR, CK, CRP #### [address] [address] Sodium [Moles/Vol] 139 mmol/L Normal 136-145 [facility] Comment on above: Performed By: #### E SR, CK, CRP #### [address] [address] Total Protein 6.8 G/dL Normal 6.4-8.2 [facility] Comment on above: Performed By: #### E SR, CK, CRP #### [address] [address] Urea nitrogen [Mass/Vol] 12 mg/dL Normal 7-18 [facility] Comment on above: Performed By: #### E SR, CK, CRP #### [address] [address] CRPon 10-07-2024 C-Reactive Protein 0.7 mg/dL High 0.0-0.3 [facility] Comment on above: Performed By: #### E SR, CK, CRP #### [address] [address] ESRon 10-07-2024 Erythrocyte Sed Rate 12 mm/hr Normal 0-30 [facility] Comment on above: Performed By: #### E SR, CK, CRP #### [address] [address] FT4on 10-07-2024 Free T4 [Mass/Vol] 1.49 ng/dL High 0.76-1.46 [facility] Comment on above: Performed By: #### E SR, CK, CRP #### [address] [place], [place] [address] LABORATORYOrdered By: SYSTEM SYSTEM on 10-07-2024 Albumin BCP dye [Mass/Vol] 3.3 G/dL Low 3.5 - 5.0 G/dL AO ADM SS Albumin/Globulin [Mass ratio] 0.9 {ratio} Low 1.1 - 2.5 ratio AO ADM SS ALP [Catalytic activity/Vol] 92 U/L Normal 40 - 135 U/L AO ADM SS ALT With P-5'-P [Catalytic activity/Vol] 27 U/L Normal 14 - 59 U/L AO ADM SS AST With P-5'-P [Catalytic activity/Vol] 14 U/L Normal 10 - 40 U/L AO ADM SS Bilirubin [Mass/Vol] 0.6 mg/dL Normal 0.2 - 1 .0 mg/dL AO ADM SS Comment on above: Interpretive Data: U se of this assay is not recommended for patients undergoing treatment with eltrombopag due to the potential for falsely elevated results. Calcium [Mass/Vol] 9.0 mg/dL Normal 8.4 - 10. 2 mg/dL AO ADM SS Chloride [Moles/Vol] 99 mmol/L Normal 98 - 10 7 mmol/L AO ADM SS CO2 [Moles/Vol] 30 mmol/L High 22 - 29 mmol/L AO ADM SS Creatinine [Mass/Vol] 0.66 mg/dL Normal 0.51 - 0.95 mg/dL AO ADM SS Electrolyte Balance 10.0 mEq/L Normal 4.0 - 15 .0 mEq/L AO ADM SS Estimated Glomerular Filtration Rate 104 ml/min/1.73sqm Invalid Interpretation Code AO Chemistry S Comment on above: Interpretive Data: Stages of Chronic Kidney Disease (CKD) Stage Description eGFR(ml/min/1.73 sq.m.) CKD 1 Normal kidney function or >=90 normal kindney function with possible kidney damage (ex. Proteinuria) CKD 2 Kidney damage with mild loss 60-89 of kidney function CKD 3a Mild to moderate loss of kidney 45-59 function CKD 3b Moderate to severe loss of 30-44 of kindey function CKD 4 Severe loss of kidney function 15-29 CKD 5 Kidney failure <15 Note: (go live 2024) the eGFR calculation was updated to the 2020 CKD-EPI creatinine equation without a race factor to calculate the eGFR results. Globulin 3.5 G/dL Normal 2.7 - 4.4 G/dL AO ADM SS Glucose [Mass/Vol] 282 mg/dL High 70 - 105 mg/dL AO ADM SS Potassium [Moles/Vol] 3.9 mmol/L Normal 3.5 - 5.1 mmol/L AO ADM SS Protein [Mass/Vol] 6.8 G/dL Normal 6.4 - 8.2 G/dL AO ADM SS Sodium [Moles/Vol] 139 mmol/L Normal 136 - 145 mmol/L AO ADM SS Urea nitrogen [Mass/Vol] 12 mg/dL Normal 7 - 18 mg/d L AO ADM SS Urea nitrogen/Creatinine [Mass ratio] 18 ratio Normal 7 - 27 ratio AO ADM SS 25-hydroxyvitamin D3 [Mass/Vol] 30.9 ng/mL Invalid Interpretation Code AO ADM SS Comment on above: Interpretive Data: I nterpretive Values Based on Total 25(OH) Vitamin D: Deficient <20 ng/mL Insufficient 20 - <30 ng/mL Sufficient 30-100 ng/mL Free T4 [Mass/Vol] 1.49 ng/dL High 0.76 - 1. 46 ng/dL AO ADM SS TSH Qn 1.17 m[IU]/L Normal 0.36 - 3.74 mcIU/mL AO ADM SS LABORATORYOrdered By: Jie Peters on 10-07-2024 Cholesterol [Mass/Vol] 179 mg/dL Normal 0 - 2 00 mg/dL AO ADM SS Comment on above: Interpretive Data: C holesterol Reference Interval: Less than 200 Desirable 200-239 Borderline high risk 240 and above High risk Cholesterol in HDL [Mass/Vol] 46 mg/dL Normal 40 - 60 mg/dL AO ADM SS Cholesterol in LDL [Mass/Vol] 87 mg/dL Normal 0 - 130 mg/dL AO ADM SS Triglyceride [Mass/Vol] 229 mg/dL High 0 - 150 mg/dL AO ADM SS Comment on above: Interpretive Data: T riglyceride Reference Interval: Less than 150 Normal 150-199 Borderline high risk 200-499 High risk 500 or higher Very high risk LIPIDon 10-07-2024 Cholesterol [Mass/Vol] 179 mg/dL Normal 0-200 [facility] Comment on above: Result Comment: Chol esterol Reference Interval: Less than 200 Desirable 200-239 Borderline high risk 240 and above High risk Performed By: #### E SR, CK, CRP #### [place] [id number] Cholesterol in HDL [Mass/Vol] 46 mg/dL Normal 40-60 [facility] Comment on above: Performed By: #### E SR, CK, CRP #### [address] [place] [id number] Cholesterol in LDL [Mass/Vol] 87 mg/dL Normal 0-130 [facility] Comment on above: Performed By: #### E SR, CK, CRP #### [place] [address] Triglyceride [Mass/Vol] 229 mg/dL High 0-150 [facility] Comment on above: Result Comment: Trig lyceride Reference Interval: Less than 150 Normal 150-199 Borderline high risk 200-499 High risk 500 or higher Very high risk Performed By: #### E SR, CK, CRP #### [address] [address] TSHon 10-07-2024 TSH Qn 1.17 m[IU]/L Normal 0.36-3.74 [facility] Comment on above: Performed By: #### E SR, CK, CRP #### [address] [address] VIDHon 10-07-2024 Vit. D 25-Hydroxy 30.9 ng/mL Normal [facility] Comment on above: Result Comment: Inte rpretive Values Based on Total 25(OH) Vitamin D: Deficient <20 ng/mL Insufficient 20 - <30 ng/mL Sufficient 30-100 ng/mL Performed By: #### E SR, CK, CRP #### [address] [address] CNPNon 10-05-2024 CNPN Telephone ([facility]) LANDRY,KVNG Pina ([id number]) 1970 F Date Time Provider Department 10/05/24 STEWART FRANKS During your visit today, we recorded the following information about you: Yadi (Pharmacy Ai)Mercedes 10/05/2024 10:15 AM Signed === PHARMACY TEAM ==== ADDITIONAL INFORMATION NEEDED/REQUESTED Case Submitted: No Request Type: Provider Date of Service: TBD Additional Information Needed: Initial Requests (Most Payers A AND B are required) A. Diagnosis of osteoarthritis confirmed by radiological evidence (e.g. x-ray, MRI, CT Scan) B. Patient has tried and failed conservative therapies (when AND for how long): 1. Physical therapy or documented home exercise routine (at least 4-6 weeks1 2. NSAIDS, acetaminophen or topical capsacin creams (document length of use) and 3. At least two cortisone injections with documented results* (or efficacy was less than 4 weeks duration Request from Payor by: N/A Email Sent to: ENCOUNTER-STEWART FRANKS Requested Clinicals/Information Sent: N/A Allergies As of Date: 10/05/2024 Noted Allergy Reaction CODEINE 12/03/2008 10 - Anaphylaxis 14 - Other: See Comments ERYTHROMYCIN 07/20/2014 2 - Rash 7 - Swelling TORADOL (KETOROLAC) 07/20/2014 9 - Itching Comments: Given with Vicodin at the time of the reaction. VICODIN (HYDROCODONE-ACETAMINOP HE*07/20/2014 9 - Itching Comments: Given with Toradol at the time of the reaction. AMLODIPINE 01/23/2023 14 - Other: See Comments CEFDINIR 12/03/2008 14 - Other: See Comments COPAXONE (GLATIRAMER) 04/01/2023 12 - Shortness of Breath HYDROCODONE 12/03/2008 14 - Other: See Comments JARDIANCE (EMPAGLIFLOZIN) 04/01/2023 14 - Other: See Comments Comments: Chronic yeast infection PENICILLINS 07/20/2014 4 - Hives Date Reviewed: 09/22/2024 Reviewed by: Tenisha Laughlin MA - Fully Assessed Reason for Visit: Insurance Authorization [[id number]] Cmt: Prior Auth Delayed Additional Information Needed Requested Prescriptions as of 10/05/2024 - methocarbamol (ROBAXIN) 500 mg tablet Take 1 tablet by mouth three times a day as needed (Muscle spasm) for up to 7 days. - diclofenac, EC, (VOLTAREN) 75 mg EC tablet Take 1 tablet by mouth two times a day. for pain. - lidocaine (SALONPAS) 4 % patch APPLY ONE PATCH AT NIGHT AND LEAVE ON FOR 12 HOURS THEN REMOVE DURING THE DAY - sertraline (ZOLOFT) 50 mg tablet 1 tablet every day by oral route. - carvedilol (COREG) 25 mg tablet Take by mouth once daily. - FREESTYLE LUIS MIGUEL 3 SENSOR wilbur CHANGE SENSOR EVERY 14 DAYS - cholecalciferol, Vitamin D3, (VITAMIN D3) 1,250 mcg (50,000 unit) cap capsule Take 1 capsule by mouth one time a week. - TRUE METRIX GLUCOSE TEST STRIP test strip use 1 TEST STRIP to TEST BLOOD SUGAR four times a day - TRUE METRIX GLUCOSE METER as directed. - TRUEPLUS LANCETS 30 gauge use 1 LANCET to TEST BLOOD SUGAR four times a day - cholecalciferol (VITAMIN D3) 1,000 unit tab tablet Take 1 tablet by mouth every afternoon. - tiZANidine (ZANAFLEX) 4 mg tablet Take 4 mg by mouth daily at bedtime. - levothyroxine (SYNTHROID) 150 mcg tablet Take 1 tablet by mouth every afternoon. - insulin lispro (HUMALOG KWIKPEN) 100 unit/mL inject 10 units subcutaneously three times a day - aspirin, enteric coated (ASPIRIN, ENTERIC COATED) 81 mg EC tablet Take 81 mg by mouth once daily. - omega-3 fatty acids/fish oil (FISH OIL-OMEGA-3 FATTY ACIDS) 300-1,000 mg cap Take by mouth. - Multivitamins-Minerals- Lutein (MULTIVITAMIN 50 PLUS) tab Take 1 tablet by mouth once daily. - Ascorbic Acid (VITAMIN C) 1,000 mg tablet Take 1,000 mg by mouth once daily. - diroximel fumarate (VUMERITY) 231 mg capsule, delayed release Take 462 mg by mouth two times a day. - hydroCHLOROthiazide 25 mg tablet Take 12.5 mg by mouth once daily. - rosuvastatin (CRESTOR) 5 mg tablet Take 5 mg by mouth once daily. - insulin glargine (LANTUS SOLOSTAR U-100 INSULIN) 100 unit/mL (3 mL) Inject 32 Units subcutaneously every morning. - gabapentin (NEURONTIN) 300 mg capsule Take 600 mg by mouth two times a day. - losartan (COZAAR) 50 mg tablet Take 50 mg by mouth two times a day. - acetaminophen (TYLENOL) 500 mg tablet Take 1 tablet by mouth every 6 hours as needed. 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 Normal [facility] 09-29-2024 [facility] Telephone ([facility]) KVNG LANDRY ([id number]) 1970 F Date Time Provider Department 09/29/24 AYAAN MORELAND [facility] During your visit today, we recorded the following information about you: Faviola García 09/29/2024 11:41 AM Signed Patient referred by Dr. Everett to Dr. Moreland for SCS eval. Attempted to reach patient to schedule an office visit with Dr. Moreland. Voicemail was full, unable to leave a message. Allergies As of Date: 09/29/2024 Noted Allergy Reaction CODEINE 12/03/2008 10 - Anaphylaxis 14 - Other: See Comments ERYTHROMYCIN 07/20/2014 2 - Rash 7 - Swelling TORADOL (KETOROLAC) 07/20/2014 9 - Itching Comments: Given with Vicodin at the time of the reaction. VICODIN (HYDROCODONE-ACETAMINOP HE*07/20/2014 9 - Itching Comments: Given with Toradol at the time of the reaction. AMLODIPINE 01/23/2023 14 - Other: See Comments CEFDINIR 12/03/2008 14 - Other: See Comments COPAXONE (GLATIRAMER) 04/01/2023 12 - Shortness of Breath HYDROCODONE 12/03/2008 14 - Other: See Comments JARDIANCE (EMPAGLIFLOZIN) 04/01/2023 14 - Other: See Comments Comments: Chronic yeast infection PENICILLINS 07/20/2014 4 - Hives Date Reviewed: 09/22/2024 Reviewed by: Tenisha Laughlin MA - Fully Assessed Reason for Visit: Appointment [186] Prescriptions as of 09/29/2024 - diclofenac, EC, (VOLTAREN) 75 mg EC tablet Take 1 tablet by mouth two times a day. for pain. - lidocaine (SALONPAS) 4 % patch APPLY ONE PATCH AT NIGHT AND LEAVE ON FOR 12 HOURS THEN REMOVE DURING THE DAY - sertraline (ZOLOFT) 50 mg tablet 1 tablet every day by oral route. - carvedilol (COREG) 25 mg tablet Take by mouth once daily. - FREESTYLE LUIS MIGUEL 3 SENSOR wilbur CHANGE SENSOR EVERY 14 DAYS - cholecalciferol, Vitamin D3, (VITAMIN D3) 1,250 mcg (50,000 unit) cap capsule Take 1 capsule by mouth one time a week. - TRUE METRIX GLUCOSE TEST STRIP test strip use 1 TEST STRIP to TEST BLOOD SUGAR four times a day - TRUE METRIX GLUCOSE METER as directed. - TRUEPLUS LANCETS 30 gauge use 1 LANCET to TEST BLOOD SUGAR four times a day - cholecalciferol (VITAMIN D3) 1,000 unit tab tablet Take 1 tablet by mouth every afternoon. - tiZANidine (ZANAFLEX) 4 mg tablet Take 4 mg by mouth daily at bedtime. - levothyroxine (SYNTHROID) 150 mcg tablet Take 1 tablet by mouth every afternoon. - insulin lispro (HUMALOG KWIKPEN) 100 unit/mL inject 10 units subcutaneously three times a day - aspirin, enteric coated (ASPIRIN, ENTERIC COATED) 81 mg EC tablet Take 81 mg by mouth once daily. - omega-3 fatty acids/fish oil (FISH OIL-OMEGA-3 FATTY ACIDS) 300-1,000 mg cap Take by mouth. - Multivitamins-Minerals- Lutein (MULTIVITAMIN 50 PLUS) tab Take 1 tablet by mouth once daily. - Ascorbic Acid (VITAMIN C) 1,000 mg tablet Take 1,000 mg by mouth once daily. - diroximel fumarate (VUMERITY) 231 mg capsule, delayed release Take 462 mg by mouth two times a day. - hydroCHLOROthiazide 25 mg tablet Take 12.5 mg by mouth once daily. - rosuvastatin (CRESTOR) 5 mg tablet Take 5 mg by mouth once daily. - insulin glargine (LANTUS SOLOSTAR U-100 INSULIN) 100 unit/mL (3 mL) Inject 32 Units subcutaneously every morning. - gabapentin (NEURONTIN) 300 mg capsule Take 600 mg by mouth two times a day. - losartan (COZAAR) 50 mg tablet Take 50 mg by mouth two times a day. - acetaminophen (TYLENOL) 500 mg tablet Take 1 tablet by mouth every 6 hours as needed. 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 Spondylolisthesis of lumbar region [M43.16] 03/19/2017 Abnormal electrocardiography [R94.31] 07/17/2023 Diagnosed: 07/17/2023 Candidiasis of vagina [B37.31] 07/17/2023 07/18/2023 Diagnosed: 07/17/2023 Spondylosis of cervical spine [M47.812] 03/09/2022 Diagnosed: 07/17/2023 Chest pain [R07.9] 07/17/2023 Diagnosed: 07/17/2023 Diabetes mellitus (HCC) [E11.9] 01/21/2023 Diagnosed: 07/17/2023 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/2023 Diagnosed: 07/17/2023 Dyspnea on exertion [R06.09] 07/17/2023 Diagnosed: 07/17/2023 Fatigue [R53.83] 11/15/2022 Diagnosed: 07/17/2023 History of cardiac catheterization [Z98.890] 07/30/2018 Diagnosed: 07/17/2023 Hyperlipidemia [E78.5] 01/21/2023 Diagnosed: 07/17/2023 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 [facility] 09-22-2024 [facility] KVNG LANDRY ([id number]) 1970 F Date Time Provider Department 09/22/24 11:30 AM [facility] During your visit today, we recorded the following information about you: Pulse Blood pressure 110/minute 146/91 Allergies As of Date: 09/22/2024 Noted Allergy Reaction CODEINE 12/03/2008 10 - Anaphylaxis 14 - Other: See Comments ERYTHROMYCIN 07/20/2014 2 - Rash 7 - Swelling TORADOL (KETOROLAC) 07/20/2014 9 - Itching Comments: Given with Vicodin at the time of the reaction. VICODIN (HYDROCODONE-ACETAMINOP HE*07/20/2014 9 - Itching Comments: Given with Toradol at the time of the reaction. AMLODIPINE 01/23/2023 14 - Other: See Comments CEFDINIR 12/03/2008 14 - Other: See Comments COPAXONE (GLATIRAMER) 04/01/2023 12 - Shortness of Breath HYDROCODONE 12/03/2008 14 - Other: See Comments JARDIANCE (EMPAGLIFLOZIN) 04/01/2023 14 - Other: See Comments Comments: Chronic yeast infection PENICILLINS 07/20/2014 4 - Hives Date Reviewed: 09/22/2024 Reviewed by: Tenisha Laughlin MA - Fully Assessed Reason for Visit: Post Op [174] Primary Visit Diagnosis:Status post lumbar spine operative procedure for decompression of spinal cord [Z98.890] Other Visit Diagnoses:Class 3 severe obesity due to excess calories without serious comorbidity with body mass index (BMI) of 45.0 to 49.9 in adult [E66.813, Z68.42] MS (multiple sclerosis) ([facility]) [G35] Order(s):CONSULT TO PAIN MGT [19990811] Order #: [id number]: 1 FUTURE CONSULT TO ENDOCRINOLOGY [9001] Order #: [id number]: 1 FUTURE CONSULT TO NEUROLOGY [9076] Order #: [id number]: 1 FUTURE Prescriptions as of 09/22/2024 - diclofenac, EC, (VOLTAREN) 75 mg EC tablet Take 1 tablet by mouth two times a day. for pain. - lidocaine (SALONPAS) 4 % patch APPLY ONE PATCH AT NIGHT AND LEAVE ON FOR 12 HOURS THEN REMOVE DURING THE DAY - sertraline (ZOLOFT) 50 mg tablet 1 tablet every day by oral route. - carvedilol (COREG) 25 mg tablet Take by mouth once daily. - FREESTYLE LUIS MIGUEL 3 SENSOR wilbur CHANGE SENSOR EVERY 14 DAYS - cholecalciferol, Vitamin D3, (VITAMIN D3) 1,250 mcg (50,000 unit) cap capsule Take 1 capsule by mouth one time a week. - TRUE METRIX GLUCOSE TEST STRIP test strip use 1 TEST STRIP to TEST BLOOD SUGAR four times a day - TRUE METRIX GLUCOSE METER as directed. - TRUEPLUS LANCETS 30 gauge use 1 LANCET to TEST BLOOD SUGAR four times a day - cholecalciferol (VITAMIN D3) 1,000 unit tab tablet Take 1 tablet by mouth every afternoon. - tiZANidine (ZANAFLEX) 4 mg tablet Take 4 mg by mouth daily at bedtime. - levothyroxine (SYNTHROID) 150 mcg tablet Take 1 tablet by mouth every afternoon. - insulin lispro (HUMALOG KWIKPEN) 100 unit/mL inject 10 units subcutaneously three times a day - aspirin, enteric coated (ASPIRIN, ENTERIC COATED) 81 mg EC tablet Take 81 mg by mouth once daily. - omega-3 fatty acids/fish oil (FISH OIL-OMEGA-3 FATTY ACIDS) 300-1,000 mg cap Take by mouth. - Multivitamins-Minerals- Lutein (MULTIVITAMIN 50 PLUS) tab Take 1 tablet by mouth once daily. - Ascorbic Acid (VITAMIN C) 1,000 mg tablet Take 1,000 mg by mouth once daily. - diroximel fumarate (VUMERITY) 231 mg capsule, delayed release Take 462 mg by mouth two times a day. - hydroCHLOROthiazide 25 mg tablet Take 12.5 mg by mouth once daily. - rosuvastatin (CRESTOR) 5 mg tablet Take 5 mg by mouth once daily. - insulin glargine (LANTUS SOLOSTAR U-100 INSULIN) 100 unit/mL (3 mL) Inject 32 Units subcutaneously every morning. - gabapentin (NEURONTIN) 300 mg capsule Take 600 mg by mouth two times a day. - losartan (COZAAR) 50 mg tablet Take 50 mg by mouth two times a day. - acetaminophen (TYLENOL) 500 mg tablet Take 1 tablet by mouth every 6 hours as needed. 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 Spondylolisthesis of lumbar region [M43.16] 03/19/2017 Abnormal electrocardiography [R94.31] 07/17/2023 Diagnosed: 07/17/2023 Candidiasis of vagina [B37.31] 07/17/2023 07/18/2023 Diagnosed: 07/17/2023 Spondylosis of cervical spine [M47.812] 03/09/2022 Diagnosed: 07/17/2023 Chest pain [R07.9] 07/17/2023 Diagnosed: 07/17/2023 Diabetes mellitus (HCC) [E11.9] 01/21/2023 Diagnosed: 07/17/2023 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 Normal [facility] KVNG LANRDY ([id number]) 1970 F Date Time Provider Department 09/22/24 KORIN LOUISFreddy During your visit today, we recorded the following information about you: Charles Felder 09/22/2024 1:20 PM Signed lvm for patient to call so ewe can get her scheduled for a appointment with dr louis this week Allergies As of Date: 09/22/2024 Noted Allergy Reaction CODEINE 12/03/2008 10 - Anaphylaxis 14 - Other: See Comments ERYTHROMYCIN 07/20/2014 2 - Rash 7 - Swelling TORADOL (KETOROLAC) 07/20/2014 9 - Itching Comments: Given with Vicodin at the time of the reaction. VICODIN (HYDROCODONE-ACETAMINOP HE*07/20/2014 9 - Itching Comments: Given with Toradol at the time of the reaction. AMLODIPINE 01/23/2023 14 - Other: See Comments CEFDINIR 12/03/2008 14 - Other: See Comments COPAXONE (GLATIRAMER) 04/01/2023 12 - Shortness of Breath HYDROCODONE 12/03/2008 14 - Other: See Comments JARDIANCE (EMPAGLIFLOZIN) 04/01/2023 14 - Other: See Comments Comments: Chronic yeast infection PENICILLINS 07/20/2014 4 - Hives Date Reviewed: 09/22/2024 Reviewed by: Tensiha Laughlin MA - Fully Assessed Reason for Visit: Appointment [186] Cmt: [facility] for patient to call so ewe can get her scheduled for a appointment with dr louis this week Prescriptions as of 09/22/2024 - diclofenac, EC, (VOLTAREN) 75 mg EC tablet Take 1 tablet by mouth two times a day. for pain. - lidocaine (SALONPAS) 4 % patch APPLY ONE PATCH AT NIGHT AND LEAVE ON FOR 12 HOURS THEN REMOVE DURING THE DAY - sertraline (ZOLOFT) 50 mg tablet 1 tablet every day by oral route. - carvedilol (COREG) 25 mg tablet Take by mouth once daily. - FREESTYLE LUIS MIGUEL 3 SENSOR wilbur CHANGE SENSOR EVERY 14 DAYS - cholecalciferol, Vitamin D3, (VITAMIN D3) 1,250 mcg (50,000 unit) cap capsule Take 1 capsule by mouth one time a week. - TRUE METRIX GLUCOSE TEST STRIP test strip use 1 TEST STRIP to TEST BLOOD SUGAR four times a day - TRUE METRIX GLUCOSE METER as directed. - TRUEPLUS LANCETS 30 gauge use 1 LANCET to TEST BLOOD SUGAR four times a day - cholecalciferol (VITAMIN D3) 1,000 unit tab tablet Take 1 tablet by mouth every afternoon. - tiZANidine (ZANAFLEX) 4 mg tablet Take 4 mg by mouth daily at bedtime. - levothyroxine (SYNTHROID) 150 mcg tablet Take 1 tablet by mouth every afternoon. - insulin lispro (HUMALOG KWIKPEN) 100 unit/mL inject 10 units subcutaneously three times a day - aspirin, enteric coated (ASPIRIN, ENTERIC COATED) 81 mg EC tablet Take 81 mg by mouth once daily. - omega-3 fatty acids/fish oil (FISH OIL-OMEGA-3 FATTY ACIDS) 300-1,000 mg cap Take by mouth. - Multivitamins-Minerals- Lutein (MULTIVITAMIN 50 PLUS) tab Take 1 tablet by mouth once daily. - Ascorbic Acid (VITAMIN C) 1,000 mg tablet Take 1,000 mg by mouth once daily. - diroximel fumarate (VUMERITY) 231 mg capsule, delayed release Take 462 mg by mouth two times a day. - hydroCHLOROthiazide 25 mg tablet Take 12.5 mg by mouth once daily. - rosuvastatin (CRESTOR) 5 mg tablet Take 5 mg by mouth once daily. - insulin glargine (LANTUS SOLOSTAR U-100 INSULIN) 100 unit/mL (3 mL) Inject 32 Units subcutaneously every morning. - gabapentin (NEURONTIN) 300 mg capsule Take 600 mg by mouth two times a day. - losartan (COZAAR) 50 mg tablet Take 50 mg by mouth two times a day. - acetaminophen (TYLENOL) 500 mg tablet Take 1 tablet by mouth every 6 hours as needed. 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 Spondylolisthesis of lumbar region [M43.16] 03/19/2017 Abnormal electrocardiography [R94.31] 07/17/2023 Diagnosed: 07/17/2023 Candidiasis of vagina [B37.31] 07/17/2023 07/18/2023 Diagnosed: 07/17/2023 Spondylosis of cervical spine [M47.812] 03/09/2022 Diagnosed: 07/17/2023 Chest pain [R07.9] 07/17/2023 Diagnosed: 07/17/2023 Diabetes mellitus (HCC) [E11.9] 01/21/2023 Diagnosed: 07/17/2023 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/2023 Diagnosed: 07/17/2023 Dyspnea on exertion [R06.09] 07/17/2023 Diagnosed: 07/17/2023 Fatigue [R53.83] 11/15/2022 Diagnosed: 07/17/2023 History of cardiac catheterization [Z98.890] 07/30/2018 Diagnosed: 07/17/2023 Hyperlipidemia [E78.5] 01/21/2023 Diagnosed: 07/17/2023 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 Normal [facility] 09-02-2024 [facility] Office Visit ([facility] ) KVNG LANDRY ([id number]) 1970 F Date Time Provider Department 09/02/24 1:00 PM STEWART FRANKS ORDANDY During your visit today, we recorded the following information about you: Stewart Franks PA-C 09/02/2024 1:40 PM Signed HISTORY OF PRESENT ILLNESS: Kvng is a 54 year old female. She is here for evaluation of Right knee pain. Patient was supposed to see me on 07/20 in [facility], however patient had an emergency event with hypotension that requires transport to nearby ED. Patient coming back in today for continued right knee pain. Today she states she has 7/10 intermittent sharp, radiating, aching, throbbing pain in the right knee for 6 months. She recently had spine surgery on August 10 and fell yesterday on left hip and buttock. Patient just finished medrol pack 2 days ago. MEDICATIONS Current Outpatient Medications on File Prior to Visit Medication Sig methocarbamol (ROBAXIN) 500 mg tablet TAKE 1 TABLET BY MOUTH THREE TIMES A DAY NEEDED (MUSCLE SPASM) FOR UP TO 7 DAYS. lidocaine (SALONPAS) 4 % patch APPLY ONE PATCH AT NIGHT AND LEAVE ON FOR 12 HOURS THEN REMOVE DURING THE DAY sertraline (ZOLOFT) 50 mg tablet 1 tablet every day by oral route. carvedilol (COREG) 25 mg tablet Take by mouth once daily. FREESTYLE LUIS MIGUEL 3 SENSOR wilbur CHANGE SENSOR EVERY 14 DAYS cholecalciferol, Vitamin D3, (VITAMIN D3) 1,250 mcg (50,000 unit) cap capsule Take 1 capsule by mouth one time a week. TRUE METRIX GLUCOSE TEST STRIP test strip use 1 TEST STRIP to TEST BLOOD SUGAR four times a day TRUE METRIX GLUCOSE METER as directed. TRUEPLUS LANCETS 30 gauge use 1 LANCET to TEST BLOOD SUGAR four times a day cholecalciferol (VITAMIN D3) 1,000 unit tab tablet Take 1 tablet by mouth every afternoon. tiZANidine (ZANAFLEX) 4 mg tablet Take 4 mg by mouth daily at bedtime. levothyroxine (SYNTHROID) 150 mcg tablet Take 1 tablet by mouth every afternoon. insulin lispro (HUMALOG KWIKPEN) 100 unit/mL inject 10 units subcutaneously three times a day aspirin, enteric coated (ASPIRIN, ENTERIC COATED) 81 mg EC tablet Take 81 mg by mouth once daily. omega-3 fatty acids/fish oil (FISH OIL-OMEGA-3 FATTY ACIDS) 300-1,000 mg cap Take by mouth. Multivitamins-Minerals- Lutein (MULTIVITAMIN 50 PLUS) tab Take 1 tablet by mouth once daily. Ascorbic Acid (VITAMIN C) 1,000 mg tablet Take 1,000 mg by mouth once daily. diroximel fumarate (VUMERITY) 231 mg capsule, delayed release Take 462 mg by mouth two times a day. hydroCHLOROthiazide 25 mg tablet Take 12.5 mg by mouth once daily. rosuvastatin (CRESTOR) 5 mg tablet Take 5 mg by mouth once daily. insulin glargine (LANTUS SOLOSTAR U-100 INSULIN) 100 unit/mL (3 mL) Inject 32 Units subcutaneously every morning. gabapentin (NEURONTIN) 300 mg capsule Take 600 mg by mouth two times a day. losartan (COZAAR) 50 mg tablet Take 50 mg by mouth two times a day. acetaminophen (TYLENOL) 500 mg tablet Take 1 tablet by mouth every 6 hours as needed. No current facility-administered medications on file prior to visit. ALLERGIES ALLERGIES Allergen Reactions Codeine Anaphylaxis, Other: See Comments Erythromycin Rash, Swelling Toradol [Ketorolac] Itching Given with Vicodin at the time of the reaction. Vicodin [Hydrocodon* Itching Given with Toradol at the time of the reaction. 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[facility]) Depression Diabetes mellitus, type 2 ([facility]) DVT, lower extremity ([facility]) Essential hypertension History of myocardial infarction due to atherothrombotic coronary artery disease Hypothyroidism Malfunction of electrode lead of cardiac pacemaker atrial lead Mixed hyperlipidemia MS (multiple sclerosis) ([facility]) Multiple sclerosis ([facility]) Presence of cardiac pacemaker [employer] dual-chamber MRI conditional pacemaker system implanted 02/06/2021 for second degree AV block; system extracted (removed) 09/11/2023 due to lead malfunction; new [employer] dual-chamber pacemaker system reimplanted (system will be MRI conditional after 6 weeks post implant) PVC (premature ventricular contraction) RA (rheumatoid arthritis) ([facility]) Right bundle branch block (RBBB) Right bundle branch block (RBBB) with left anterior fascicular block (LAFB) 02/06/2021 S/P cardiac pacemaker procedure 09/12/2023 Patient underwent extraction of [employer] dual-chamber pacemaker system including removal of right atrial and right ventricular apex leads with subsequent implantation of [employer] dual-chamber permanent pacemaker with (more content not included)... Normal [facility] Large Joint Arthro/Inj: R kn ee jointon 09-02-2024 Stewart Franks P A-C 09/02/2024 1:40 PM Large Joint Arthro/Inj: R knee joint 09/02/2024 1:39 PM The procedure site was prepped in the usual sterile fashion. Site: R knee joint Medications: 40 mg triamcinolone acetonide 40 mg/mL Anesthetics: 3 mL lidocaine (PF) 10 mg/mL (1 %) Outcome: Tolerated well, no immediate complications Post-injection instructions were reviewed with the patient and the patient voiced understanding of these instructions. Informed Consent Consent Obtained: Verbal Sarah Ann Protocol A moment to CARE was completed. SIGN IN Personnel directly involved with the procedure wore the appropriate PPE. Special Equipment: N/A Patient/Surrogate Stated/Verified: Patient name, Date of , Relevant allergies and Intended procedure TIME OUT Relevant labs, photos, and/or imaging studies have been reviewed. Intended patient and procedure match source documents. Consent obtained and matches the intended procedure. Correct side/site marked and visible. Medications required for procedure verified. No fire risk assessment and interventions applicable. No implant(s) inserted. SIGN OUT No specimen collected. All instruments, equipment, possible retained foreign bodies accounted for. The post-procedure POC has been communicated to the patient or surrogate. No post-procedure POC communication to the patient's multidisciplinary team (including the bedside nurse for hospitalized patients) applicable. [facility] CREATININE FINGERSTICKon CREATININE WB < 1.0 Normal 0.55-1.02 [facility] Comment on above: Performed By: #### L 9100.0200 #### [facility] [address] [place], [address] EGFR WB > 60.0000 Normal >60 [facility] Comment on above: Performed By: #### L 9100.0200 #### [facility] [address] [place], [address] Chest WITH Contraston 2024 Chest WITH Contrast [facility] Services [address] [place] [address] Chest WITH Contrast MR#: [id number] Acct: [id number] Name: KVNG LANDRY LEXI Rep #: [id number] : 1970 F 54 From: Bob Jiménez MD PCP: Dr. Elmer Richards MD Status: REG CLI Study: Chest WITH Contrast Date of Exam: 08/31/24 Exam# [id number] Ordering Dr: Elmer Richards MD PROCEDURE: CHEST WITH CONTRAST 08/31/2024 REASON FOR EXAM: ABNORMAL FINDINGS TECHNIQUE: Axial chest CT with intravenous contrast. Coronal and Sagittal reconstruction series were provided. One or more dose reduction techniques were used (e.g., Automated exposure control, adjustment of the mA and/or kV according to patient size, use of iterative reconstruction technique). FINDINGS: Hardware: Left subclavian pacemaker. Lymph nodes: Unremarkable. Heart and Vasculature: No cardiomegaly. No thoracic aortic aneurysm. Lungs and Airways: No pneumonia, atelectasis, nodule, or mass. Pleura: No pleural effusion. Upper Abdomen: Status post cholecystectomy. Bones: Unremarkable. CT/Chest WITH Contrast IMPRESSION: Coronary artery calcification (CAC) is was not evaluable NO ACUTE FINDINGS ON CONTRAST-ENHANCED CHEST CT. Reading Location: [id number] CC: Dr. Elmer Richards MD Technical Training Instructor: Signed Normal [facility] EGFROrdered By: Elmer webster 08-31-2024 GFR/1.73 sq M.predicted among non-blacks MDRD (S/P/Bld) [Vol rate/Area] mL/min/{1.73_m2} >60 [facility] CNOVon 2024 CNOV Office Visit ([facility] ) KVNG LANDRY ([id number]) 1970 F Date Time Provider Department 08/24/24 11:40 AM SATISH PACE [facility] During your visit today, we recorded the following information about you: Pulse Respiration Blood pressure Weight 85/minute 20/minute 146/91 112.4 kg Satish Pace PA-C 2024 12:04 PM Signed SPINE SURGERY FOLLOW UP This is an in-person visit. SERVICE DATE: 2024 SURGERY DATE: 08/10/24 Kvng Landry is seen for 2 week post operative follow up s/p right L4/[address] Everett. Patient states today she has increased pain in right thigh stopping just above the knee. Patient states it is becoming difficult to walk due to pain. She denies any new numbness or weakness. She denies any issues with her incision. Patient has no other acute complaints or concerns at this time. PAIN EVALUATION 08/18/2024 1128 Pain Location: Back-Lower Description: Aching;Sore Frequency: Intermittent Intervention/Comfort measure: Medication;Cold;Pillow support;Positioning Patient Entered Questionnaires 03/30/2024 04/16/2024 08/18/2024 Spine Questions Pain Location: Lower back Lower back Lower back Pain Duration: 1 to 5 years Pain over last 6 months: Every day or nearly every day in the past 6 months Symptoms from neck/cervical spine: No No No Employment Status: Other Off work 1 month or more due to back/neck pain: Yes Applied for/receive disability/WC due to low back/neck pain Yes Involved in law suit/legal claim: No PROMIS Score Percentiles 03/30/2024 08/18/2024 Physical Health Physical Function Percentile 1 4 Sleep Percentile 10 10 Fatigue Percentile 4 4 Pain Interference Percentile 1 0 03/30/2024 08/18/2024 PROMIS SOCIAL ROLE SCORE Social Role Satisfaction Percentile 1 1 03/30/2023 03/30/2024 07/25/2024 PROMIS Global Health Scale Physical Health Percentile 7 2 7 Mental Health Percentile 5 5 13 Patient-reported Percentiles provide an indication of how the patient's score ranks in relation to the general population. Higher percentile rankings indicate better function/quality of life. 50th percentile is the average of the general population and indicates half of respondents had a worse score. Descriptive Summary for PROMIS Physical Function T-score = 33 (Percentile 4) Much difficulty - Carry a laundry basket up a flight of stairs. Some difficulty - Walk at a normal speed. Unable - Walk more than a mile (1.6 km). PHYSICAL EXAM: BP 146/91 Pulse 85 Resp 20 Wt 112.4 kg (247 lb 12.8 oz) LMP 08/08/2006 SpO2 98% BMI 46.48 kg/m? General: Awake, alert and in no acute distress. Patient is pleasant and cooperative Motor: LE Hip Flex Knee Flex Knee Extend Plantarflex Dorsiflex R 5/5 5/5 5/5 5/5 5/5 L 5/5 5/5 5/5 5/5 5/5 Neuro: Sensation to light touch intact of B/L lower extremities Wound: Appropriate post operative wound located in lower back. Incision appears well approximated with glue. No signs of erythema, fluctuance, blood/mucoid discharge, wound appears CDI. DATA REVIEW [facility] records independently reviewed ASSESSMENT/PLAN (M48.062) Spinal stenosis, lumbar region with neurogenic claudication (primary encounter diagnosis) Kvng Landry is seen for 2 week post operative follow up s/p right L4/[address] Everett. - Patient doing well - Discussed healing expectations - Discussed increasing activity - Medications refilled: yes - Start medrol dose pack - Imaging ordered: No - Follow up as previously scheduled SIGNATURE: Satish Pace PA-C PATIENT NAME: Kvng Landry DATE: 2024 TIME: 11:26 AM PAGER: Allergies As of Date: 2024 Noted Allergy Reaction CODEINE 12/03/2008 10 - Anaphylaxis 14 - Other: See Comments ERYTHROMYCIN 07/20/2014 2 - Rash 7 - Swelling TORADOL (KETOROLAC) 07/20/2014 9 - Itching Comments: Given with Vicodin at the time of the reaction. VICODIN (HYDROCODONE-ACETAMINOP HE*07/20/2014 9 - Itching Comments: Given with Toradol at the time of the reaction. AMLODIPINE 01/23/2023 14 - Other: See Comments CEFDINIR 12/03/2008 14 - Other: See Comments COPAXONE (GLATIRAMER) 04/01/2023 12 - Shortness of Breath HYDROCODONE 12/03/2008 14 - Other: See Comments JARDIANCE (EMPAGLIFLOZIN) 04/01/2023 14 - Other: See Comments Comments: Chronic yeast infection PENICILLINS 07/20/2014 4 - Hives Date Reviewed: 2024 Reviewed by: Andrea Swenson MA - Fully Assessed Reason for Visit: Post Op [174] Cmt: Pt states " right hip and right leg pain." Primary Visit Diagnosis:Spinal stenosis, lumbar region with neurogenic claudication [M48.062] Order(s):oxyCODONE-acet aminophen (PERCOCET) 5-325 mg tabletTake 1 tablet by mouth every 4 hours as needed for pain (for acute post oeprative pain) for up to 7 days.Disp: 21 tab (more content not included)... Normal [facility] ANES POSTPROC EVALon 025 ANES POSTPROC EVAL HNO ID: [id number] Author: JANET GALEANO MD Service: Anesthesiology Author Type: Anesthesiologist Type: Anesthesia Postprocedure Evaluation Filed: 08/10/2024 16:58 Note Text: POST ANESTHESIA EVALUATION NOTE : 1970 Procedure Summary Date: 08/10/24 Room / Location: [place] [address] / OR Anesthesia Start: 1325 Anesthesia Stop: 1532 Procedure: DECOMPRESSION LAMINECTOMY LUMBAR POSTERIOR LEVEL 1 (Right L4/5 MIS Decompression) (Right: Spine Lumbar) Diagnosis: Spinal stenosis, lumbar region with neurogenic claudication (Spinal stenosis, lumbar region with neurogenic claudication [M48.062]) Surgeons: Shawn Everett MD Responsible Provider: Janet Galeano MD Anesthesia Type: general ASA Status: 4 Anesthesia Type: general Airway Type: ETT Last Vitals Vitals Value Taken Time BP 160/77 08/10/24 1645 Temp 36.9 ?C (98.4 ?F) 08/10/24 1615 Pulse 61 08/10/24 1656 Resp 15 08/10/24 1656 SpO2 97 % 08/10/24 1656 Vitals shown include unfiled device data. Post Anesthesia Patient Status Patient Evaluation: PACU. PACU/ICU Patient Condition: stable. Neurological Status: aware and responsive. Pulmonary Status: breathing comfortably on supplemental oxygen Airway Control: returned to baseline unsupported. Cardiovascular Status: stable. Pain Management: clinically adequate Postoperative Hydration: acceptable. Intraoperative Events: no significant anesthesia events Post Operative Nausea/Vomiting Status: no significant post operative nausea or vomiting Recommendation: continue current plan of care. Anesthesia Observations No notable events were associated with this procedure. Documented by Deidre Moore APRN.ICE CREAM MACHINE OPERATOR 08/10/2024 3:33 PM EDT SIGNATURE: Janet Galeano MD PATIENT NAME: Kvng Landry DATE: August 10, 2024 TIME: 4:58 PM CSN: [id number] [facility] ANES PRE-OPon 08-10-2024 ANES PRE-OP HNO ID: [id number] Author: MARCEL PHELPS MD Service: Anesthesiology Author Type: Anesthesiologist Type: Anesthesia Preprocedure Evaluation Filed: 08/10/2024 11:15 Note Text: ANESTHESIOLOGY DAY OF SURGERY NOTE : 1970 Procedure Information Date/Time: 08/10/24 1245 Procedure: DECOMPRESSION LAMINECTOMY LUMBAR POSTERIOR LEVEL 1 (Right L4/5 MIS Decompression) (Right: Spine Lumbar) Location: [facility]04A / [facility] Surgeons: Shawn Everett MD Estimated body mass index is 46.77 kg/m? as calculated from the following: Height as of 07/27/24: 155.5 cm (5' 1.22"). Weight as of this encounter: 113.1 kg (249 lb 5.4 oz). 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 Tracheostomy tube not present Mallampati: III. TM distance: >3 FB. Neck ROM: limited flexion and extension. Mouth opening: adequate. Short neck: yes. Thick neck: yes Castro present: no Lip Bite Test: I Microretrognathia/Micro nagthia/Recessed Chin: No DENTAL Dental findings: teeth intact. Additional exam findings: no II - ANESTHESIA PLAN ASA Score: 4 Anesthetic Plan: general Airway type: ETT The patient is not a current smoker. NPO Status: adequate Beta Josephine Monitoring Plan Monitoring plan: standard ASA. Post Procedure Analgesic Plan Postoperative analgesic plan: multimodal analgesia and per surgical service. Informed Consent Anesthetic risks, benefits, alternatives, personnel and consent discussed: yes. Patient / Responsible Republican agrees to proceed: yes Patient / Surrogate agrees to blood products: Yes DNR status not reviewed with patient and/or family prior to surgery. Significant changes in the patient condition since the History and Physical, not otherwise documented in primary service progress note: no. Vitals Value Taken Time BP 161/95 08/10/24 1042 Pulse 64 08/10/24 1042 Resp 18 08/10/24 1042 Temp 37.1 ?C (98.8 ?F) 08/10/24 1042 SpO2 97 % 08/10/24 1042 Facility-Administered Medications as of 08/10/2024 Medication Dose Route Frequency - acetaminophen 1,000 mg tab(s) (TYLENOL) 1,000 mg ORAL ONCE - [COMPLETED] promethazine 12.5 mg tab(s) (PHENERGAN) 12.5 mg ORAL ONCE Outpatient Medications as of 08/10/2024 Medication Sig - cholecalciferol (VITAMIN D3) 1,000 unit tab tablet Take 1 tablet by mouth every afternoon. - tiZANidine (ZANAFLEX) 4 mg tablet Take 4 mg by mouth daily at bedtime. - levothyroxine (SYNTHROID) 150 mcg tablet Take 1 tablet by mouth every afternoon. - insulin lispro (HUMALOG KWIKPEN) 100 unit/mL inject 10 units subcutaneously three times a day - aspirin, enteric coated (ASPIRIN, ENTERIC COATED) 81 mg EC tablet Take 81 mg by mouth once daily. - Ascorbic Acid (VITAMIN C) 1,000 mg tablet Take 1,000 mg by mouth once daily. - hydroCHLOROthiazide 25 mg tablet Take 12.5 mg by mouth once daily. - rosuvastatin (CRESTOR) 5 mg tablet Take 5 mg by mouth once daily. - insulin glargine (LANTUS SOLOSTAR U-100 INSULIN) 100 unit/mL (3 mL) Inject 32 Units subcutaneously every morning. - gabapentin (NEURONTIN) 300 mg capsule Take 600 mg by mouth two times a day. - losartan (COZAAR) 50 mg tablet Take 50 mg by mouth two times a day. - acetaminophen (TYLENOL) 500 mg tablet Take 1 tablet by mouth every 6 hours as needed. - sertraline (ZOLOFT) 50 mg tablet 1 tablet every day by oral route. - TRUE METRIX GLUCOSE TEST STRIP test strip use 1 TEST STRIP to TEST BLOOD SUGAR four times a day - TRUE METRIX GLUCOSE METER as directed. - TRUEPLUS LANCETS 30 gauge use 1 LANCET to TEST BLOOD SUGAR four times a day - LORazepam (ATIVAN) 1 mg tablet Take 1 tablet by mouth every 12 hours. (Patient not taking: Reported on 07/27/2024) - omega-3 fatty acids/fish oil (FISH OIL-OMEGA-3 FATTY ACIDS) 300-1,000 mg cap Take by mouth. - Multivitamins-Minerals- Lutein (MULTIVITAMIN 50 PLUS) tab Take 1 tablet by mouth once daily. - diroximel fumarate (VUMERITY) 231 mg capsule, delayed release Take 462 mg by mouth two times a day. - metoprolol succinate ER (TOPROL XL) 50 mg 24 hr tablet Take 50 mg by mouth two times a day. (Patient not taking: Reported on 07/27/2024) I have interviewed and examined the patient. I have reviewed the med (more content not included)... Normal [facility] HISTORY PHYSICALon HISTORY PHYSICAL HNO ID: [id number] Author: SHAWN EVERETT MD Service: Neurosurgery Author Type: Physician Type: H&P Filed: 08/10/2024 12:32 Note Text: UPDATED HISTORY AND PHYSICAL EXAMINATION SERVICE DATE: 08/10/2024 SERVICE TIME: 12:32 PM PHYSICAL EXAM MUST BE COMPLETED ON ADMISSION The History and Physical (completed in the past 30 days) has been reviewed and the patient has been examined. The contents accurately reflect the patient's condition with the following additions or revisions since the HANDP was completed. Examination indicates no changes. This HANDP can be found in the attached. SIGNATURE: Shawn Everett MD PATIENT NAME: Kvng Landry DATE: August 10, 2024 TIME: 12:32 PM SPINE SURGERY NEW PATIENT I have communicated my name and active licensure. The patient's identity and physical location were verified at the time of this visit. Either the patient or their legal product sales representative has been informed of the risks and benefits of -- and alternatives to -- treatment through a remote evaluation and consents to proceed with the evaluation remotely. PCP: Elmer Richards MD REFERRING PROVIDER: No referring provider defined for this encounter. 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 Severe L4-L5 stenosis according to the report. Unknown if the weakness is arising form the lumbar spine or the multiple sclerosis. The only way to be certain is unfortunately surgery. Therefore, I recommend the simplest surgery possible: lumbar decompression. 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 She is unsure if the weakness in the legs is arising from multiple sclerosis of the lumbar stenosis Major Risk Factors Obesity High Risk High: BMI > 40 Moderate: BMI 30-40 Normal: BMI < 30 Diabetes Unknown Risk High: A1C > 8 Moderate: A1C 7-8 Normal: A1C < 7 Hx of DVT / PE High Risk High: dx of DVT / PE Normal: no dx of DVT / PE Smoking normal High: Current smoker Normal: Non smoker Narcotics Use normal High:NarxCare >=300 Moderate: 100-299 Normal: 0-99 Depression Moderate Risk High: PHQ-9 >14 Moderate: PHQ-9 5-14 Normal: PHQ-9 < 5 Data from [facility] Epic Last PT session: No date on file in last 365 days Last Epidural Steroid Injection: No epidural injection on file for last 365 days Last Spine Surgery: No history of prior spine surgery in search of available [facility] records PAST MEDICAL HISTORY Diagnosis Date Atrioventricular block, second degree Bradycardia Coronary-myocardial bridge Depression Diabetes mellitus, type 2 (HCC) DVT, lower extremity (HCC) Essential hypertension History of myocardial infarction due to atherothrombotic coronary artery disease Hypothyroidism Malfunction of electrode lead of cardiac pacemaker atrial lead Mixed hyperlipidemia MS (multiple sclerosis) (HCC) Multiple sclerosis (HCC) Presence of cardiac pacemaker [employer] dual-chamber MRI conditional pacemaker system implanted 02/06/2021 for second degree AV block; system extracted (removed) 09/11/2023 due to lead malfunction; new Medtronic dual-chamber pacemaker system reimplanted (system will be MRI conditional after 6 weeks post implant) PVC (premature ventricular contraction) RA (rheumatoid arthritis) (HCC) 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 Baer on 09/11/2023. Systemic lupus erythematosus (HCC) PAST SURGICAL HISTORY Procedure Laterality Date BASIC PACEMAKER DUAL CHAMBER Left 02/06/2021 [employer] dual-chamber MRI conditional pacemaker system implanted for second degree AV block BASIC PACEMAKER DUAL CHAMBER Left 09/11/2023 [employer]onic dual-chamber pacemaker system implant; RV septal lead, paced QRS duration 108 ms; system will be MRI conditional after 6 weeks post implant; CCAG Dr. Baer ECHOCARDIOGRAM 08/02/2023 [facility]; see scanned documents LAPAROSCOPY SURG CHOLECYSTECTOMY Cholecystectomy, lap NEUROPLASTY AND/TRANSPOS MEDIAN NRV CARPAL TUNNE Carpal tunnel decomp PACEMAKER - REMOVAL/REPOSITION LEAD DUAL Left 09/11/2023 [employer] dual-chamber pacemaker system extraction (removal); CCAG Dr. Baer PAST SURGICAL HISTORY OF uterine ablation TONSILLECTOMY PRIMAR (more content not included)... [facility] OPERATIVE NOon 08-10-2024 OPERATIVE NO HNO ID: [id number] Author: SHAWN EVERETT MD Service: Neurosurgery Author Type: Physician Type: Operative Report Filed: 08/10/2024 15:09 Note Text: OPERATIVE/PROCEDURE REPORT LOG ID: [id number] SURGERY/PROCEDURE DATE: 08/10/2024 INCISION/PROCEDURE START TIME: 2:22 PM INCISION CLOSE/PROCEDURE END TIME: 3:00 PM SURGEON(S)/PROCEDURALIS T(S) AND DIRECTOR OF EDUCATION AND TRAINING(S): Surgeons and Role: * Shawn Everett MD - Primary * Yg Hubbard MD - Fellow No Additional Staff SURGERY/PROCEDURE(S): Right-sided minimally-invasive approach to bilateral L4-L5 decompression Microscope for microdissection tehchniques ANESTHESIA: General SURGERY/PROCEDURE DETAILS: The patient was brought to the operative room where general anesthesia was induced. Preoperative antibiotics were administered. The patient was positioned prone on the operating room table. All pressure points were appropriately padded. A preoperative timeout was carried out with the entire operating room staff to verify the correct patient, surgical site, and procedure. The surgical site was then sterilely prepped and draped. After this, the midline palpated along the spinous processes was marked. A parallel line was then marked 1 cm to the right of midline. Placement of the percutaneous needle at the spinal level of interest was confirmed with C-arm fluoroscopy. An incision centered around the needle was marked. The planned incision was opened sharply with a #15 blade. The bovie cautery incised the deep dermis and adipose. The minimally-invasive tubular system dilated over the L4-L5 disc space. The final dilation was attached to the articulating arm. The correct position was confirmed with C-arm fluoroscopy, and the correct level was verified with radiology. The microscope was brought into the surgical field. The bovie cautery removed the muscle over the respective interspace. The highspeed pura removed the right caudal L4 lamina. The ligamentum flavum was pealed off with the Kerrison rongeurs. The ipsilateral descending and exiting nerve roots were completely free. Attention was directed to the contralateral decompression. The tubular dilator was then medialized. The undersurface of the spinous process and left L4 lamina was undercut with the highspeed pura. The ligamentum flavum was pealed off with the Kerrison rongeurs. The left descending and exiting nerve roots were completely free. Attention was directed to the discectomy. The nerve root retractor medialized the thecal sac to expose the L4-L5 disc space. The disc was incised with a #11 blade. A series of curettes and rongeurs removed the herniated disc fragment. The operative field was thoroughly inspected for any residual stenosis. After confirming adequate decompression, the wound was irrigated copiously with normal saline. Hemostasis was reinforced with hemostatic matrix. Methylprednisolone injectable suspension was applied into the surgical cavity. The wound was closed in successive layers with interrupted sutures and Monocryl for the skin. At the end of the procedure all counts were correct. At the conclusion of the operation, the patient was positioned supine on a hospital bed. PRE-OP/PRE-PROCEDURE DIAGNOSIS: L4-L5 stenosis with neurogenic claudicaiton POST-OP/POST-PROCEDURE DIAGNOSIS: Same as Preop ESTIMATED BLOOD LOSS: 20 mls SPECIMENS: None IMPLANTABLE DEVICES: NONE DRAINS: None COMPLICATIONS: None CLOSURE TECHNIQUE: Primary PARTICIPATION IN SURGERY/PROCEDURE: I/primary surgeon/proceduralist performed the procedure with assistance. SIGNATURE: Shawn Everett MD PATIENT NAME: Kvng Landry DATE: August 10, 2024 TIME: 3:06 PM [facility] XR VERIFY LEVEL [id number] 08-10-2024 XR VERIFY LEVEL L-SPINE-NB * * *Final Report* * * DATE OF EXAM: Aug 10 2024 2:28PM HCR 5642 - XR VERIFY LEVEL L-SPINE-NB / PROCEDURE REASON: VERIFY * * * * Physician Interpretation * * * * RESULT: INTRAOPERATIVE LUMBAR SPINE LOCALIZATION TECHNIQUE: Single lateral image of the lumbar spine COUNTING REFERENCE: Lumbosacral junction. L4/5 is presumed to be the level of the iliac crests. COMPARISON: 02/21/2024 RESULT: A single lateral image is obtained intraoperatively for surgical planning. A localizing surgical instrument is noted, overlying the posterior aspect of the L4-5 disc space. Image annotated with vertebral body levels and confirmed with the responsible surgeon at the time of interpretation. IMPRESSION: OPERATIVE ASSESSMENT COMMUNICATION: Localization level(s) confirmed with: SHAWN EVERETT on 08/10/2024 2:30 PM , via phone and Microsoft Teams during the surgical procedure. 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 -Poor R-wave progression -may be secondary to pulmonary disease consider old anterior infarct. ABNORMAL Electronically signed on 08/12/2024 at 11:29 by Michael Liu Software Version [id number] 08/12/24 1135 Date Giovanni GALOC CC: Dr. Elmer Richards MD Date Dictated: 08/06/24 0847 Date Transcribed: 08/06/24 0847 Technical Training Instructor: OSCAR Signed Normal [facility] Cardiology Visit Reporton Cardiology Visit Report [facility] [address] [place], [place] [address] OFFICE VISIT Date of Service: 08/06/24 MR#: [id number] Acct: [id number] Name: KVNG LANDRY Rep #: [id number] : 1970 Provider: MIGUEL bella Age/Sex: 53/F Location: [facility] Status: Signed with Addenda ADDENDUM by MIGUEL Ji on 08/06/24 at 1031 Addendum Addendum Details:: Twelve-lead ECG on 08/06/2024 shows sinus rhythm with first-degree AV block, at a rate of 71 bpm, P interval 222, QTc 419, and QRS 112. 08/06/24 1031 Date Giovanni Ji NP cc: Dr. Elmer Richards MD * Signed HPI HPI History of Present Illness Details: Kvng Landry is a 53 year old female who presents to the office today for a cardiovascular office visit. She has a history of myocardial bridging, hypertension, hyperlipidemia, MS and diabetes. She notes that she may also have systemic lupus. As you remember she had presented with fatigue having undergone a left heart catheterization in July 2018. It demonstrated LAD myocardial bridging and a small area of apical akinesis. She underwent a 30-day Holter monitor which demonstrated sinus rhythm with first-degree AV block and a left bundle branch block. She also had periods of complete heart block. This led to a pacemaker implantation in February 2021. Due to yearly her young age she underwent a cardiac MRI which did confirm a transmural infarct in the apex. There was late gadolinium enhancement images demonstrating a subendocardial scar at the mid anterior wall involving less than 50%. No other infiltrative conditions were noted. Patient did see Dr. Montanez at [facility] and March 2023. They had adjusted her pacemaker programming to unipolar to help with her high atrial lead impedance that was noted on her pacemaker check. He had recommended that they could undergo an MRI with her pacemaker in the RENATA setting. 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 In May 2023, she was having an MS flare. She is in need of an MRI to look for additional lesions. The was denied per [employer]. Because of this this her insurance company will not cover this. Patient did develop symptoms with her fractured atrial lead. She feels like she did with prior to having her PPM placed. Because of this she she is seeing Dr. Baer on 07/18/2023. In September 2023 patient underwent an extraction of her Ferris pacemaker system with right atrial and right ventricular apex leads with subsequent reimplantation of Medtronic pacemaker system with right atrial and right ventricular septal lead with Dr. Baer. She was seen at outside facility in July 2024 for syncopal episode after obtaining x-ray. She had medication changes. Her episode was thought to be vasovagal related. She denies chest, arm, jaw, or neck discomfort. She denies palpitations. She states intermittent bilateral lower extremity edema. She denies claudication. She states shortness of breath with activity such as going up stairs. she denies shortness of breath at rest, orthopnea, or PND. She denies chronic cough. She denies significant, sudden weight gain. She denies lightheadedness, dizziness, near-syncope, or syncope. She denies blood in urine, blood in stool, or epistaxis. He denies fever with chills. She denies myalgia. She denies fatigue. Her exercise level has remained stable. Intake Vital Signs 05/18/24 13:09 08/06/24 08:49 Height 5 ft 1 in 5 ft 1 in Weight: 255 lb 4 oz 253 lb BMI 48.2 47.7 BP 142/83 H 118/76 Blood Pressure Location Rt brachial Lt brachial Position Sitting Sitting Respiration 16 Pulse 64 75 Pulse Source Monitor NIBP Pulse Oximetry (%) 95 Oxygen Delivery Method room air Intake Visit Reasons: SURGICAL CLEARANCE International Accountant Required: No Is patient in pain?: No Allergies glatiramer (copolymer 1) (From Copaxone) Allergy (Severe, Verified 08/06/24 08:53) hypotension, shaking, irregular breathing empagliflozin (From Jardiance) Allergy (Intermediate, Verified 08/06/24 08:53) yeast infection codeine Allergy (Verified 08/06/24 08:53) Anaphylaxis Penicillins Allergy (Verified 08/06/24 08:53) rash amlodipine Adverse Reaction (Intermediate, Verified 08/06/24 08:53) Swelling in shins and ankles ached erythromycin base (From Erythrocin) Adverse Reaction (Verified 08/06/24 08:53) Unknown hydrocodone (From Vicodin) Adverse Reaction (Verified 08/06/24 08:53) syncope ketorolac (From Toradol) Adverse Reaction (Verified 08/06/24 08:53) anxious Medications ???Medication ???Instructions ???Recorded ???Confirmed ???Type tizanidine 4 mg capsule 4 mg PO QHS muscle spasms 01/16/21 08/06/24 History lancing device with lancets kit #1 ea 03/11/23 04/15/24 Rx (Accu-Chek FastClix (more content not included)... Normal [facility] Benigno 08-03-2024 [facility] Telephone (AGCARDPOB ) KVNG LANDRY ([id number]) 1970 F Date Time Provider Department 08/03/24 DHAVAL LICONA During your visit today, we recorded the following information about you: Darlene Castro 08/03/2024 9:05 AM Signed Pt had pre op appt 08/04 with Dhaval Licona. Dhaval stated pt follows for general cardiology. would be the one to clear her for surgery. Left pt message that appt is canceled and she would need to follow up with . Darlene Castro Allergies As of Date: 08/03/2024 Noted Allergy Reaction CODEINE 12/03/2008 10 - Anaphylaxis 14 - Other: See Comments ERYTHROMYCIN 07/20/2014 2 - Rash 7 - Swelling TORADOL (KETOROLAC) 07/20/2014 9 - Itching Comments: Given with Vicodin at the time of the reaction. VICODIN (HYDROCODONE-ACETAMINOP HE*07/20/2014 9 - Itching Comments: Given with Toradol at the time of the reaction. AMLODIPINE 01/23/2023 14 - Other: See Comments CEFDINIR 12/03/2008 14 - Other: See Comments COPAXONE (GLATIRAMER) 04/01/2023 12 - Shortness of Breath HYDROCODONE 12/03/2008 14 - Other: See Comments JARDIANCE (EMPAGLIFLOZIN) 04/01/2023 14 - Other: See Comments Comments: Chronic yeast infection PENICILLINS 07/20/2014 4 - Hives Date Reviewed: 07/27/2024 Reviewed by: Mae Lopez APRN.COUNSELING CASE MANAGER - Fully Assessed Prescriptions as of 08/03/2024 - lidocaine (SALONPAS) 4 % patch APPLY ONE PATCH AT NIGHT AND LEAVE ON FOR 12 HOURS THEN REMOVE DURING THE DAY - sertraline (ZOLOFT) 50 mg tablet 1 tablet every day by oral route. - carvedilol (COREG) 25 mg tablet Take by mouth once daily. - oxyCODONE-acetaminophen (PERCOCET) 5-325 mg tablet Take 1 tablet by mouth every 8 hours as needed for pain. - FREESTYLE LUIS MIGUEL 3 SENSOR wilbur CHANGE SENSOR EVERY 14 DAYS - cholecalciferol, Vitamin D3, (VITAMIN D3) 1,250 mcg (50,000 unit) cap capsule Take 1 capsule by mouth one time a week. - TRUE METRIX GLUCOSE TEST STRIP test strip use 1 TEST STRIP to TEST BLOOD SUGAR four times a day - TRUE METRIX GLUCOSE METER as directed. - TRUEPLUS LANCETS 30 gauge use 1 LANCET to TEST BLOOD SUGAR four times a day - LORazepam (ATIVAN) 1 mg tablet Take 1 tablet by mouth every 12 hours. - cholecalciferol (VITAMIN D3) 1,000 unit tab tablet Take 1 tablet by mouth every afternoon. - tiZANidine (ZANAFLEX) 4 mg tablet Take 4 mg by mouth daily at bedtime. - levothyroxine (SYNTHROID) 150 mcg tablet Take 1 tablet by mouth every afternoon. - insulin lispro (HUMALOG KWIKPEN) 100 unit/mL inject 10 units subcutaneously three times a day - aspirin, enteric coated (ASPIRIN, ENTERIC COATED) 81 mg EC tablet Take 81 mg by mouth once daily. - omega-3 fatty acids/fish oil (FISH OIL-OMEGA-3 FATTY ACIDS) 300-1,000 mg cap Take by mouth. - Multivitamins-Minerals- Lutein (MULTIVITAMIN 50 PLUS) tab Take 1 tablet by mouth once daily. - Ascorbic Acid (VITAMIN C) 1,000 mg tablet Take 1,000 mg by mouth once daily. - diroximel fumarate (VUMERITY) 231 mg capsule, delayed release Take 462 mg by mouth two times a day. - hydroCHLOROthiazide 25 mg tablet Take 12.5 mg by mouth once daily. - rosuvastatin (CRESTOR) 5 mg tablet Take 5 mg by mouth once daily. - metoprolol succinate ER (TOPROL XL) 50 mg 24 hr tablet Take 50 mg by mouth two times a day. - insulin glargine (LANTUS SOLOSTAR U-100 INSULIN) 100 unit/mL (3 mL) Inject 32 Units subcutaneously every morning. - gabapentin (NEURONTIN) 300 mg capsule Take 600 mg by mouth two times a day. - losartan (COZAAR) 50 mg tablet Take 50 mg by mouth two times a day. - acetaminophen (TYLENOL) 500 mg tablet Take 1 tablet by mouth every 6 hours as needed. 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*03/19/2017 Spondylolisthesis of lumbar region [M43.16] 03/19/2017 Abnormal electrocardiography [R94.31] 07/17/2023 Diagnosed: 07/17/2023 Candidiasis of vagina [B37.31] 07/17/2023 07/18/2023 Diagnosed: 07/17/2023 Spondylosis of cervical spine [M47.812] 03/09/2022 Diagnosed: 07/17/2023 Chest pain [R07.9] 07/17/2023 Diagnosed: 07/17/2023 Diabetes mellitus (HCC) [E11.9] 01/21/2023 Diagnosed: 07/17/2023 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/2023 Diagnosed: 07/17/2023 Dyspnea on exertion [R06.09] 07/17/2023 Diagnosed: 07/17/2023 Fatigue [R53.83] 11/15/2022 Diagnosed: 07/17/2023 History of cardiac catheterization [Z98.890] 07/30/2018 Diagnosed: 07/17/2023 Hyperlipidemia [E78.5] 01/21/2023 Diagnosed: 07/17/2023 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 Normal [facility] Telephone (NSADH) LANDRYKVNG BROWN ([id number]) 1970 F Date Time Provider Department 08/03/24 [facility] During your visit today, we recorded the following information about you: Stephanie Storm, RN 08/03/2024 5:02 PM Signed NEUROSURGERY CARE COORDINATION [facility] PRE-OP EDUCATION TELEPHONE CALL Patient scheduled for Right L4/[address] Everett for Thursday 08/10 at [facility]. Noted medical clearance pending cardiology clearance, noted telephone encounters dated today 08/03 with further information regarding this, this RN to f/u with this, and noted financial clearance obtained. Called patient at home/mobile phone number, name and verified. Spoke with patient Kvng Pina Landry for pre-op education. Given both written and verbal instructions regarding: pre-op skin preparation and post-op pain management, wound care, and restrictions. Provided to patient and discussed the following education materials and supplies: Map of [facility] 1st Floor, Spine Surgery Pre-/Post-Op Instructions, Skin Preparation AND NPO Instructions including Hibiclens AND CHG wipes, Pain Management After Spine Surgery, Smoking AND Spine Surgery, Nearby Accommodations List, Preparing for Post-Acute Care Instructions, and Preparing for Surgery Card? Yes. Patient states has Hibiclens soap. Discussed recommendation and provided education material to have Advance Directives completed? Yes. Provided [facility] Healthcare Power of Net Architect form? No. Provided [facility] Living Will form? No. Does patient already have forms completed and scanned into system or were forms scanned during this visit? No. Reviewed with patient to have pre-testing done within 30 days of scheduled surgery and phone number provided to call and schedule? Yes; [facility] appointment dated 07/27, reviewed and relayed [facility] provider instructions, including medications, see notes, this RN to f/u regarding cardiology clearance, see above, states aware and states understanding. Reviewed with patient that Pre-Op will call between 2PM-5PM with time to arrive for surgery the next day? Yes. Reviewed with patient that they will report to Pre/Post Op Services desk day of surgery? Yes. Does patient have transportation to and from surgery? Yes. Patient aware surgery anticipated to be OUTPATIENT. Discussed anticipated care after discharge to be self care. Post-op support: spouse. Falls Education provided? Yes. Questions and concerns answered and patient verbalized understanding via teach back. Instructed to call office as needed, office phone number provided. TRINI Cohen, RN August 03, 2024 5:02 PM Stephanie Storm RN 08/06/2024 10:47 AM Signed NEUROSURGERY CARE COORDINATION [facility] PRE-OP EDUCATION TELEPHONE CALL Noted cardiology clearance obtained; noted 'Scanned Docs' dated 08/03. Routing to P[facility] team in order to notify. No further action required by this RN at this time. TRINI Cohen, RN August 06, 2024 10:46 AM Allergies As of Date: 08/03/2024 Noted Allergy Reaction CODEINE 12/03/2008 10 - Anaphylaxis 14 - Other: See Comments ERYTHROMYCIN 07/20/2014 2 - Rash 7 - Swelling TORADOL (KETOROLAC) 07/20/2014 9 - Itching Comments: Given with Vicodin at the time of the reaction. VICODIN (HYDROCODONE-ACETAMINOP HE*07/20/2014 9 - Itching Comments: Given with Toradol at the time of the reaction. AMLODIPINE 01/23/2023 14 - Other: See Comments CEFDINIR 12/03/2008 14 - Other: See Comments COPAXONE (GLATIRAMER) 04/01/2023 12 - Shortness of Breath HYDROCODONE 12/03/2008 14 - Other: See Comments JARDIANCE (EMPAGLIFLOZIN) 04/01/2023 14 - Other: See Comments Comments: Chronic yeast infection PENICILLINS 07/20/2014 4 - Hives Date Reviewed: 07/27/2024 Reviewed by: Mae Lopez APRN.COUNSELING CASE MANAGER - Fully Assessed Reason for Visit: Pre-Op Teaching [134] Cmt: DOS 08/10/2024 Prescriptions as of 08/06/2024 - lidocaine (SALONPAS) 4 % patch APPLY ONE PATCH AT NIGHT AND LEAVE ON FOR 12 HOURS THEN REMOVE DURING THE DAY - sertraline (ZOLOFT) 50 mg tablet 1 tablet every day by oral route. - carvedilol (COREG) 25 mg tablet Take by mouth once daily. - oxyCODONE-acetaminophen (PERCOCET) 5-325 mg tablet Take 1 tablet by mouth every 8 hours as needed for pain. - FREESTYLE LUIS MIGUEL 3 SENSOR wilbur CHANGE SENSOR EVERY 14 DAYS - cholecalciferol, Vitamin D3, (VITAMIN D3) 1,250 mcg (50,000 unit) cap capsule Take 1 capsule by mouth one time a week. - TRUE METRIX GLUCOSE TEST STRIP test strip use 1 TEST STRIP to TEST BLOOD SUGAR four times a day - TRUE METRIX GLUCOSE METER as directed. - TRUEPLUS LANCETS 30 gauge use 1 LANCET to TEST BLOOD SUGAR four times a day - LORazepam (ATIVAN) 1 mg tablet Take 1 tablet by mouth every 12 hours. - cholecalciferol (VITAMIN D3) 1,000 unit tab tablet Take 1 tablet by mouth every a (more content not included)... [facility] ([id number]) 1970 F Date Time Provider Department 08/03/24 ELMER RICHARDS [facility] During your visit today, we recorded the following information about you: Ld Justine Talisha 08/03/2024 9:57 AM Signed Patient called stating that Dhaval Licona's office called and cancelled her appointment. They stated that they can not give her clearance, that she will need to see her regular Psych Therapist. She tried calling other offices, but no one will see her. Her Surgery is on August 10 Talisha Hicks 08/03/2024 10:35 AM Signed Patient called back stating that she was able to get an appointment with [facility]. She will need a clearance form faxd to [phone]. Her appointment is 08/06 @ 830am with Sisi [address] LPN 08/05/2024 11:43 AM Addendum Clearance Letter faxed to Dr. Giovanni Ji's office per Mae Lopez NP request . Receipt obtained Allergies As of Date: 08/03/2024 Noted Allergy Reaction CODEINE 12/03/2008 10 - Anaphylaxis 14 - Other: See Comments ERYTHROMYCIN 07/20/2014 2 - Rash 7 - Swelling TORADOL (KETOROLAC) 07/20/2014 9 - Itching Comments: Given with Vicodin at the time of the reaction. VICODIN (HYDROCODONE-ACETAMINOP HE*07/20/2014 9 - Itching Comments: Given with Toradol at the time of the reaction. AMLODIPINE 01/23/2023 14 - Other: See Comments CEFDINIR 12/03/2008 14 - Other: See Comments COPAXONE (GLATIRAMER) 04/01/2023 12 - Shortness of Breath HYDROCODONE 12/03/2008 14 - Other: See Comments JARDIANCE (EMPAGLIFLOZIN) 04/01/2023 14 - Other: See Comments Comments: Chronic yeast infection PENICILLINS 07/20/2014 4 - Hives Date Reviewed: 07/27/2024 Reviewed by: Mae Lopez APRN.COUNSELING CASE MANAGER - Fully Assessed Reason for Visit: Appointment [186] Prescriptions as of 08/05/2024 - lidocaine (SALONPAS) 4 % patch APPLY ONE PATCH AT NIGHT AND LEAVE ON FOR 12 HOURS THEN REMOVE DURING THE DAY - sertraline (ZOLOFT) 50 mg tablet 1 tablet every day by oral route. - carvedilol (COREG) 25 mg tablet Take by mouth once daily. - oxyCODONE-acetaminophen (PERCOCET) 5-325 mg tablet Take 1 tablet by mouth every 8 hours as needed for pain. - FREESTYLE LUIS MIGUEL 3 SENSOR wilbur CHANGE SENSOR EVERY 14 DAYS - cholecalciferol, Vitamin D3, (VITAMIN D3) 1,250 mcg (50,000 unit) cap capsule Take 1 capsule by mouth one time a week. - TRUE METRIX GLUCOSE TEST STRIP test strip use 1 TEST STRIP to TEST BLOOD SUGAR four times a day - TRUE METRIX GLUCOSE METER as directed. - TRUEPLUS LANCETS 30 gauge use 1 LANCET to TEST BLOOD SUGAR four times a day - LORazepam (ATIVAN) 1 mg tablet Take 1 tablet by mouth every 12 hours. - cholecalciferol (VITAMIN D3) 1,000 unit tab tablet Take 1 tablet by mouth every afternoon. - tiZANidine (ZANAFLEX) 4 mg tablet Take 4 mg by mouth daily at bedtime. - levothyroxine (SYNTHROID) 150 mcg tablet Take 1 tablet by mouth every afternoon. - insulin lispro (HUMALOG KWIKPEN) 100 unit/mL inject 10 units subcutaneously three times a day - aspirin, enteric coated (ASPIRIN, ENTERIC COATED) 81 mg EC tablet Take 81 mg by mouth once daily. - omega-3 fatty acids/fish oil (FISH OIL-OMEGA-3 FATTY ACIDS) 300-1,000 mg cap Take by mouth. - Multivitamins-Minerals- Lutein (MULTIVITAMIN 50 PLUS) tab Take 1 tablet by mouth once daily. - Ascorbic Acid (VITAMIN C) 1,000 mg tablet Take 1,000 mg by mouth once daily. - diroximel fumarate (VUMERITY) 231 mg capsule, delayed release Take 462 mg by mouth two times a day. - hydroCHLOROthiazide 25 mg tablet Take 12.5 mg by mouth once daily. - rosuvastatin (CRESTOR) 5 mg tablet Take 5 mg by mouth once daily. - metoprolol succinate ER (TOPROL XL) 50 mg 24 hr tablet Take 50 mg by mouth two times a day. - insulin glargine (LANTUS SOLOSTAR U-100 INSULIN) 100 unit/mL (3 mL) Inject 32 Units subcutaneously every morning. - gabapentin (NEURONTIN) 300 mg capsule Take 600 mg by mouth two times a day. - losartan (COZAAR) 50 mg tablet Take 50 mg by mouth two times a day. - acetaminophen (TYLENOL) 500 mg tablet Take 1 tablet by mouth every 6 hours as needed. 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 Normal [facility] ED Physician Reporton 2024 ED Physician Report KVNG LANDRY DOB:1970 Registration Date:07/20/2024 Basic Information Time Seen: ADELINE IBRAHIM DO / 07/20/2024 09:44 Arrival Mode: Ambulance [] History Source: Patient _ _ [] History limitation: None [] History of Present Illness Patient is a 53-year-old female who presents to the emergency department with syncope. Per EMS, patient has been having right knee pain and was having an outpatient x-ray done. When she stood up, pt had a syncopal episode. ED states that the staff at the facility said she did not hit her head, they were able to catch her and lay her back before she fell. Patient states she recalls passing out. She thinks it was because she felt sharp pain in her knee prior to passing out. She denies having any chest pain. She did have preceding lightheadedness and felt hot.. Patient does have a pacemaker. Milvia Negron is her certified industrial hygienist. She is not on blood thinners. She also states she has chronic low back pain. She follows with a Dr. Everett out of [facility]. She states she is having surgery in about a month. The pain is located in her low back and radiates to her knee. She states she was having the x-ray today because they were unsure if the pain was related to her radicular pain from her back versus a new knee issue. Patient states she has chronic numbness and tingling in her distal legs secondary to history of MS. She states this is unchanged from baseline. No saddle anesthesia. However, she states she has been having urinary incontinence with her back pain. She states this has been occurring for about a year. She states this is unchanged from baseline. She does report that her back pain has been worsening in intensity recently. No fever. No vomiting or diarrhea. No abdominal pain. No further concerns at this time. I did speak with Andrew, TUNGSTEN TENDER for patient's neurosurgeon. He was able to review their prior records. He does confirm that the urinary incontinence is not new and has been documented in previous charts. Review of Systems Constitutional symptoms: Negative except as documented in HPI. Skin symptoms: Negative except as documented in HPI. Eye symptoms: Negative except as documented in HPI. ENMT symptoms: Negative except as documented in HPI. Respiratory symptoms: Negative except as documented in HPI. Cardiovascular symptoms: Negative except as documented in HPI. Gastrointestinal symptoms: Negative except as documented in HPI. Genitourinary symptoms: Negative except as documented in HPI. Musculoskeletal symptoms: Negative except as documented in HPI. Psychiatric symptoms: Negative except as documented in HPI. Neurologic symptoms: Negative except as documented in HPI. Additional review of systems information: All other systems reviewed and otherwise negative, Systems negative except as stated in the H&P. Physical Exam Vitals & Measurements Initial: T: 36.7 ?C (Oral) HR: 65 (Peripheral) BP: 85/ 51 RR: 19 SpO2: 94% O2 Therapy: Room air WT: 115.9 kg (Dosing) Latest: HR: 59 (Peripheral) HR: 61 (Monitored) BP: 119/69 RR: 16 SpO2: 95% O2 Therapy: Room air Vital Signs: Per nurse's notes. General: Alert, No acute distress Skin: Warm, dry, no rash. Head: Normocephalic, atraumatic. Neck: Supple, trachea midline. Eye: Pupils are equal, round and reactive to light, extraocular movements are intact, normal conjunctiva. Ears, nose, mouth and throat: Oral mucosa moist. Cardiovascular: Regular rate and rhythm, no murmur, peripheral pulses intact, no edema. Respiratory: Lungs are clear to auscultation, respirations are non-labored, breath sounds are equal. Back: Normal alignment, normal ROM, diffuse tenderness to palpation to lumbar spine Musculoskeletal: No deformity, diffuse tenderness to palpation to right knee. No significant effusion. No erythema or warmth. Range of motion is limited secondary to pain. Normal right hip and ankle exam. Distal pulses and sensation are intact. Gastrointestinal: Soft, nontender, non distended, normal bowel sounds. Neurological: Alert and oriented to person, place, time, and situation, CNII-XII intact, Motor strength equal and intact in all extremities, Sensation grossly intact and equal in all extremities. Medical Decision Making ED Course: EKG shows paced rhythm. Pacer interrogation was completed. Troponin negative x 2. Chest x-ray is negative for pneumonia, effusion, pneumothorax, or other significant acute findings. CT brain is negative for hemorrhage or mass. X-ray of patient's knee was done and is consistent with osteoarthritis. No acute bony lesion or fracture. Lab work shows elevated white blood cell count and mildly elevated CRP. Urinalysis is negative for UTI. No clinical findings to suggest septic joint at this time, such as joint erythema or warmth. Aspiration of her knee will be deferred at this immediate time. Patient will need MRI to rule out acute infectious process of he (more content not included)... Normal [facility] 07-30-2024 TOBI Telephone (SHEA) KVNG LANDRY ([id number]) 1970 F Date Time Provider Department 07/30/24 SISI TRUONG During your visit today, we recorded the following information about you: Sisi Truong LPN 07/30/2024 2:47 PM Signed Signed pre op received from Ann WAGNER. Also received EKG, assessment and plan, echo , stress test ,cardiac cath reports from [facility] . Placed in scanning , 21 pages received Sisi Truong LPN 08/06/2024 3:53 PM Signed Received additional records , given to Sky to scan into chart . Allergies As of Date: 07/30/2024 Noted Allergy Reaction CODEINE 12/03/2008 10 - Anaphylaxis 14 - Other: See Comments ERYTHROMYCIN 07/20/2014 2 - Rash 7 - Swelling TORADOL (KETOROLAC) 07/20/2014 9 - Itching Comments: Given with Vicodin at the time of the reaction. VICODIN (HYDROCODONE-ACETAMINOP HE*07/20/2014 9 - Itching Comments: Given with Toradol at the time of the reaction. AMLODIPINE 01/23/2023 14 - Other: See Comments CEFDINIR 12/03/2008 14 - Other: See Comments COPAXONE (GLATIRAMER) 04/01/2023 12 - Shortness of Breath HYDROCODONE 12/03/2008 14 - Other: See Comments JARDIANCE (EMPAGLIFLOZIN) 04/01/2023 14 - Other: See Comments Comments: Chronic yeast infection PENICILLINS 07/20/2014 4 - Hives Date Reviewed: 07/27/2024 Reviewed by: Mae Lopez APRN.COUNSELING CASE MANAGER - Fully Assessed Prescriptions as of 08/06/2024 - lidocaine (SALONPAS) 4 % patch APPLY ONE PATCH AT NIGHT AND LEAVE ON FOR 12 HOURS THEN REMOVE DURING THE DAY - sertraline (ZOLOFT) 50 mg tablet 1 tablet every day by oral route. - carvedilol (COREG) 25 mg tablet Take by mouth once daily. - oxyCODONE-acetaminophen (PERCOCET) 5-325 mg tablet Take 1 tablet by mouth every 8 hours as needed for pain. - FREESTYLE LUIS MIGUEL 3 SENSOR wilbur CHANGE SENSOR EVERY 14 DAYS - cholecalciferol, Vitamin D3, (VITAMIN D3) 1,250 mcg (50,000 unit) cap capsule Take 1 capsule by mouth one time a week. - TRUE METRIX GLUCOSE TEST STRIP test strip use 1 TEST STRIP to TEST BLOOD SUGAR four times a day - TRUE METRIX GLUCOSE METER as directed. - TRUEPLUS LANCETS 30 gauge use 1 LANCET to TEST BLOOD SUGAR four times a day - LORazepam (ATIVAN) 1 mg tablet Take 1 tablet by mouth every 12 hours. - cholecalciferol (VITAMIN D3) 1,000 unit tab tablet Take 1 tablet by mouth every afternoon. - tiZANidine (ZANAFLEX) 4 mg tablet Take 4 mg by mouth daily at bedtime. - levothyroxine (SYNTHROID) 150 mcg tablet Take 1 tablet by mouth every afternoon. - insulin lispro (HUMALOG KWIKPEN) 100 unit/mL inject 10 units subcutaneously three times a day - aspirin, enteric coated (ASPIRIN, ENTERIC COATED) 81 mg EC tablet Take 81 mg by mouth once daily. - omega-3 fatty acids/fish oil (FISH OIL-OMEGA-3 FATTY ACIDS) 300-1,000 mg cap Take by mouth. - Multivitamins-Minerals- Lutein (MULTIVITAMIN 50 PLUS) tab Take 1 tablet by mouth once daily. - Ascorbic Acid (VITAMIN C) 1,000 mg tablet Take 1,000 mg by mouth once daily. - diroximel fumarate (VUMERITY) 231 mg capsule, delayed release Take 462 mg by mouth two times a day. - hydroCHLOROthiazide 25 mg tablet Take 12.5 mg by mouth once daily. - rosuvastatin (CRESTOR) 5 mg tablet Take 5 mg by mouth once daily. - metoprolol succinate ER (TOPROL XL) 50 mg 24 hr tablet Take 50 mg by mouth two times a day. - insulin glargine (LANTUS SOLOSTAR U-100 INSULIN) 100 unit/mL (3 mL) Inject 32 Units subcutaneously every morning. - gabapentin (NEURONTIN) 300 mg capsule Take 600 mg by mouth two times a day. - losartan (COZAAR) 50 mg tablet Take 50 mg by mouth two times a day. - acetaminophen (TYLENOL) 500 mg tablet Take 1 tablet by mouth every 6 hours as needed. 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/19/2017 Spondylolisthesis of lumbar region [M43.16] 03/19/2017 Abnormal electrocardiography [R94.31] 07/17/2023 Diagnosed: 07/17/2023 Candidiasis of vagina [B37.31] 07/17/2023 07/18/2023 Diagnosed: 07/17/2023 Spondylosis of cervical spine [M47.812] 03/09/2022 Diagnosed: 07/17/2023 Chest pain [R07.9] 07/17/2023 Diagnosed: 07/17/2023 Diabetes mellitus (HCC) [E11.9] 01/21/2023 Diagnosed: 07/17/2023 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 Normal [facility] 07-28-2024 CNPN Telephone (PAHCB1) KVNG LANDRY ([id number]) 1970 F Date Time Provider Department 07/28/[address] [facility] During your visit today, we recorded the following information about you: Francesca Reno LPN 07/28/2024 1:02 PM Signed Records received via fax from [facility]. Scanned in to [employer]. Jenifer Reno LPN Allergies As of Date: 07/28/2024 Noted Allergy Reaction CODEINE 12/03/2008 10 - Anaphylaxis 14 - Other: See Comments ERYTHROMYCIN 07/20/2014 2 - Rash 7 - Swelling TORADOL (KETOROLAC) 07/20/2014 9 - Itching Comments: Given with Vicodin at the time of the reaction. VICODIN (HYDROCODONE-ACETAMINOP HE*07/20/2014 9 - Itching Comments: Given with Toradol at the time of the reaction. AMLODIPINE 01/23/2023 14 - Other: See Comments CEFDINIR 12/03/2008 14 - Other: See Comments COPAXONE (GLATIRAMER) 04/01/2023 12 - Shortness of Breath HYDROCODONE 12/03/2008 14 - Other: See Comments JARDIANCE (EMPAGLIFLOZIN) 04/01/2023 14 - Other: See Comments Comments: Chronic yeast infection PENICILLINS 07/20/2014 4 - Hives Date Reviewed: 07/27/2024 Reviewed by: Mae Lopez APRN.COUNSELING CASE MANAGER - Fully Assessed Prescriptions as of 07/28/2024 - lidocaine (SALONPAS) 4 % patch APPLY ONE PATCH AT NIGHT AND LEAVE ON FOR 12 HOURS THEN REMOVE DURING THE DAY - sertraline (ZOLOFT) 50 mg tablet 1 tablet every day by oral route. - carvedilol (COREG) 25 mg tablet Take by mouth once daily. - oxyCODONE-acetaminophen (PERCOCET) 5-325 mg tablet Take 1 tablet by mouth every 8 hours as needed for pain. - FREESTYLE LUIS MIGUEL 3 SENSOR wilbur CHANGE SENSOR EVERY 14 DAYS - cholecalciferol, Vitamin D3, (VITAMIN D3) 1,250 mcg (50,000 unit) cap capsule Take 1 capsule by mouth one time a week. - TRUE METRIX GLUCOSE TEST STRIP test strip use 1 TEST STRIP to TEST BLOOD SUGAR four times a day - TRUE METRIX GLUCOSE METER as directed. - TRUEPLUS LANCETS 30 gauge use 1 LANCET to TEST BLOOD SUGAR four times a day - LORazepam (ATIVAN) 1 mg tablet Take 1 tablet by mouth every 12 hours. - cholecalciferol (VITAMIN D3) 1,000 unit tab tablet Take 1 tablet by mouth every afternoon. - tiZANidine (ZANAFLEX) 4 mg tablet Take 4 mg by mouth daily at bedtime. - levothyroxine (SYNTHROID) 150 mcg tablet Take 1 tablet by mouth every afternoon. - insulin lispro (HUMALOG KWIKPEN) 100 unit/mL inject 10 units subcutaneously three times a day - aspirin, enteric coated (ASPIRIN, ENTERIC COATED) 81 mg EC tablet Take 81 mg by mouth once daily. - omega-3 fatty acids/fish oil (FISH OIL-OMEGA-3 FATTY ACIDS) 300-1,000 mg cap Take by mouth. - Multivitamins-Minerals- Lutein (MULTIVITAMIN 50 PLUS) tab Take 1 tablet by mouth once daily. - Ascorbic Acid (VITAMIN C) 1,000 mg tablet Take 1,000 mg by mouth once daily. - diroximel fumarate (VUMERITY) 231 mg capsule, delayed release Take 462 mg by mouth two times a day. - hydroCHLOROthiazide 25 mg tablet Take 12.5 mg by mouth once daily. - rosuvastatin (CRESTOR) 5 mg tablet Take 5 mg by mouth once daily. - metoprolol succinate ER (TOPROL XL) 50 mg 24 hr tablet Take 50 mg by mouth two times a day. - insulin glargine (LANTUS SOLOSTAR U-100 INSULIN) 100 unit/mL (3 mL) Inject 32 Units subcutaneously every morning. - gabapentin (NEURONTIN) 300 mg capsule Take 600 mg by mouth two times a day. - losartan (COZAAR) 50 mg tablet Take 50 mg by mouth two times a day. - acetaminophen (TYLENOL) 500 mg tablet Take 1 tablet by mouth every 6 hours as needed. 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/2017 Spondylolisthesis of lumbar region [M43.16] 03/19/2017 Abnormal electrocardiography [R94.31] 07/17/2023 Diagnosed: 07/17/2023 Candidiasis of vagina [B37.31] 07/17/2023 07/18/2023 Diagnosed: 07/17/2023 Spondylosis of cervical spine [M47.812] 03/09/2022 Diagnosed: 07/17/2023 Chest pain [R07.9] 07/17/2023 Diagnosed: 07/17/2023 Diabetes mellitus (HCC) [E11.9] 01/21/2023 Diagnosed: 07/17/2023 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/2023 Diagnosed: 07/17/2023 Dyspnea on exertion [R06.09] 07/17/2023 Diagnosed: 07/17/2023 Fatigue [R53.83] 11/15/2022 Diagnosed: 07/17/2023 History of cardiac catheterization [Z98.890] 07/30/2018 Diagnosed: 07/17/2023 Hyperlipidemia [E78.5] 01/21/2023 Diagnosed: 07/17/2023 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 Normal [facility] Basic metabolic 2000 panelon 07-27-2024 Anion gap [Moles/Vol] 10 mmol/L Normal 8-15 [facility] Comment on above: Order Comment: Speci men Type: BLOOD SPECIMENOrdering Facility: [facility] Address: [address] [place] [address] Performed By: #### 1 3317-3 #### [facility] CLIA [id number] [address] [place] [address] [place] Calcium [Mass/Vol] 9.8 mg/dL Normal 8.5-10.2 [facility] Comment on above: Order Comment: Speci men Type: BLOOD SPECIMENOrdering Facility: [facility] Address: [address] [place] [address] Performed By: #### 1 3317-3 #### [facility] CLIA [id number] [address] [place] [address] [place] Chloride [Moles/Vol] 102 mmol/L Normal 98-107 [facility] Comment on above: Order Comment: Speci men Type: BLOOD SPECIMENOrdering Facility: [facility] Address: [address] [place] [address] Performed By: #### 1 3317-3 #### [facility] CLIA [id number] [address] [place] [address] [place] CO2 [Moles/Vol] 27 mmol/L Normal 22-30 [facility] Comment on above: Order Comment: Speci men Type: BLOOD SPECIMENOrdering Facility: [facility] Address: [address] [place] [address] Performed By: #### 1 3317-3 #### [facility] CLIA [id number] [address] [id number] [place] Creatinine [Mass/Vol] 0.72 mg/dL Normal 0.58-0.96 [facility] Comment on above: Order Comment: Missy liang Type: BLOOD SPECIMENOrdering Facility: [facility] Address: [address] [place] [address] Performed By: #### 1 3317-3 #### [facility] CLIA [id number] [facility] [place] [address] [place] Creatinine and Glomerular filtration rate.predicted panel (S/P/Bld) 100 mL/min/1.73m??? Normal >=60 [facility] Comment on above: Order Comment: Missy liang Type: BLOOD SPECIMENOrdering Facility: [facility] Address: [address] [place] [address] Result Comment: Mary mated Glomerular Filtration Rate (eGFR) is calculated using the 2020 CKD-EPI creatinine equation. This equation utilizes serum creatinine, sex, and age as parameters. The creatinine assay has traceable calibration to isotope dilution-mass spectrometry. Refer to KDIGO guidelines for clinical interpretation. In patients with unstable renal function, e.g. those with acute kidney injury, the eGFR may not accurately reflect actual GFR. Performed By: #### 1 3317-3 #### [facility] CLIA [id number] [address] [place] [address] [place] Glucose [Mass/Vol] 153 mg/dL High 74-99 [facility] Comment on above: Order Comment: Speci men Type: BLOOD SPECIMENOrdering Facility: [facility] Address: [address] [place] [address] Result Comment: The [place] Diabetes Association (ADA) provides guidance for cutoff values for fasting glucose and random glucose. The ADA defines fasting as no caloric intake for at least 8 hours. Fasting plasma glucose results between 100 to 125 mg/dL indicate increased risk for diabetes (prediabetes). Fasting plasma glucose results greater than or equal to 126 mg/dL meet the criteria for diagnosis of diabetes. In the absence of unequivocal hyperglycemia, results should be confirmed by repeat testing. In a patient with classic symptoms of hyperglycemia or hyperglycemic crisis, random plasma glucose results greater than or equal to 200 mg/dL meet the criteria for diagnosis of diabetes. Reference: Standards of Medical Care in Diabetes 2016, [place] Diabetes Association. Diabetes Care. 2016.39(Suppl 1). Performed By: #### 1 3317-3 #### [facility] CLIA [id number] [address] [place] [address] [place] Potassium [Moles/Vol] 4.5 mmol/L Normal 3.7-5.1 [facility] Comment on above: Order Comment: Speci men Type: BLOOD SPECIMENOrdering Facility: [facility] Address: [address] [place] [address] Performed By: #### 1 3317-3 #### [facility] CLIA [id number] [address] [place] [address] [place] Sodium [Moles/Vol] 139 mmol/L Normal 136-144 [facility] Comment on above: Order Comment: Speci men Type: BLOOD SPECIMENOrdering Facility: [facility] Address: [address] [place] [address] Performed By: #### 1 3317-3 #### [facility] CLIA [id number] [address] [place] [address] [place] Urea nitrogen [Mass/Vol] 10 mg/dL Normal 7-21 [facility] Comment on above: Order Comment: Speci men Type: BLOOD SPECIMENOrdering Facility: [facility] Address: [address] [place] [address] Performed By: #### 1 3317-3 #### [facility] CLIA [id number] [address] [place] [address] [place] CBC W Auto Differential pane l (Bld)on 07-27-2024 Basophils (Bld) [#/Vol] 0.05 10*3/uL Normal <0.11 [facility] Comment on above: Order Comment: Speci men Type: BLOOD SPECIMENOrdering Facility: [facility] Address: [address] [place] [address] Performed By: #### 1 3317-3 #### [facility] CLIA [id number] [address] [place] [address] [place] Basophils/100 WBC (Bld) 0.5 % Normal [facility] Comment on above: Order Comment: Speci men Type: BLOOD SPECIMENOrdering Facility: [facility] Address: [address] [place] [address] Performed By: #### 1 3317-3 #### [facility] CLIA [id number] [address] [place] [address] [place] Differential cell count method Nom (Bld) Auto Normal [facility] Comment on above: Order Comment: Speci men Type: BLOOD SPECIMENOrdering Facility: [facility] Address: [address] [place] [address] Performed By: #### 1 3317-3 #### [facility] CLIA [id number] [address] [place] [address] [place] Eosinophils (Bld) [#/Vol] 0.48 10*3/uL High <0.46 [facility] Comment on above: Order Comment: Speci men Type: BLOOD SPECIMENOrdering Facility: [facility] Address: [address] [place] [address] Performed By: #### 1 7-3 #### [facility] CLIA [id number] [address] [place] [address] [place] Eosinophils/100 WBC (Bld) 5.3 % Normal [facility] Comment on above: Order Comment: Speci men Type: BLOOD SPECIMENOrdering Facility: [facility] Address: [address] [place] [address] Performed By: #### 1 3317-3 #### [facility] CLIA [id number] [address] [place] [address] [place] Erythrocyte distribution width (RBC) [Ratio] 12.5 % Normal 11.5-15.0 [facility] Comment on above: Order Comment: Speci men Type: BLOOD SPECIMENOrdering Facility: [facility] Address: [address] [place] [address] Performed By: #### 1 3317-3 #### [facility] CLIA [id number] [address] [place] [address] [place] Hematocrit (Bld) [Volume fraction] 39.8 % Normal 36.0-46.0 [facility] Comment on above: Order Comment: Speci men Type: BLOOD SPECIMENOrdering Facility: [facility] Address: [address] [place] [address] Performed By: #### 1 3317-3 #### [facility] CLIA [id number] [address] [place] [address] [place] Hemoglobin (Bld) [Mass/Vol] 13.1 g/dL Normal 11.5-15.5 [facility] Comment on above: Order Comment: Speci men Type: BLOOD SPECIMENOrdering Facility: [facility] Address: [address] [place] [address] Performed By: #### 1 3317-3 #### [facility] CLIA [id number] [address] [place] [address] [place] Immature granulocytes (Bld) [#/Vol] 10*3/uL Normal <0.10 [facility] Comment on above: Order Comment: Speci men Type: BLOOD SPECIMENOrdering Facility: [facility] Address: [address] [place] [address] Performed By: #### 1 3317-3 #### [facility] CLIA [id number] [address] [place] [address] [place] Immature granulocytes/100 WBC (Bld) 0.2 % Normal [facility] Comment on above: Order Comment: Speci men Type: BLOOD SPECIMENOrdering Facility: [facility] Address: [address] [place] [address] Performed By: #### 1 3317-3 #### [facility] CLIA [id number] [address] [place] [address] [place] Lymphocytes (Bld) [#/Vol] 1.14 10*3/uL Normal 1.00-4.00 [facility] Comment on above: Order Comment: Speci men Type: BLOOD SPECIMENOrdering Facility: [facility] Address: [address] [place] [address] Performed By: #### 1 3317-3 #### [facility] CLIA [id number] [address] [place] [address] [place] Lymphocytes/100 WBC (Bld) 12.5 % Normal [facility] Comment on above: Order Comment: Speci men Type: BLOOD SPECIMENOrdering Facility: [facility] Address: [address] [place] [address] Performed By: #### 1 3317-3 #### [facility] CLIA [id number] [address] [place] [address] [place] MCH (RBC) [Entitic mass] 29.6 pg Normal 26.0-34.0 [facility] Comment on above: Order Comment: Speci men Type: BLOOD SPECIMENOrdering Facility: [facility] Address: [address] [place] [address] Performed By: #### 1 3317-3 #### [facility] CLIA [id number] [address] [place] [address] [place] MCHC (RBC) [Mass/Vol] 32.9 g/dL Normal 30.5-36.0 [facility] Comment on above: Order Comment: Speci men Type: BLOOD SPECIMENOrdering Facility: [facility] Address: [address] [place] [address] Performed By: #### 1 3317-3 #### [facility] CLIA [id number] [address] [place] [address] [place] MCV (RBC) [Entitic vol] 90.0 fL Normal 80.0-100.0 [facility] Comment on above: Order Comment: Speci men Type: BLOOD SPECIMENOrdering Facility: [facility] Address: [address] [place] [address] Performed By: #### 1 3317-3 #### [facility] CLIA [id number] [address] [place] [address] [place] Monocytes (Bld) [#/Vol] 0.57 10*3/uL Normal <0.87 [facility] Comment on above: Order Comment: Speci men Type: BLOOD SPECIMENOrdering Facility: [facility] Address: [address] [place] [address] Performed By: #### 1 3317-3 #### [facility] CLIA [id number] [address] [place] [address] [place] Monocytes/100 WBC (Bld) 6.3 % Normal [facility] Comment on above: Order Comment: Speci men Type: BLOOD SPECIMENOrdering Facility: [facility] Address: [address] [place] [address] Performed By: #### 1 3317-3 #### [facility] CLIA [id number] [address] [place] [address] [place] Neutrophils (Bld) [#/Vol] 6.84 10*3/uL Normal 1.45-7.50 [facility] Comment on above: Order Comment: Speci men Type: BLOOD SPECIMENOrdering Facility: [facility] Address: [address] [place] [address] Performed By: #### 1 3317-3 #### [facility] CLIA [id number] [address] [place] [address] [place] Neutrophils/100 WBC (Bld) 75.2 % Normal [facility] Comment on above: Order Comment: Speci men Type: BLOOD SPECIMENOrdering Facility: [facility] Address: [address] [place] [address] Performed By: #### 1 3317-3 #### [facility] CLIA [id number] [address] [place] [address] [place] Nucleated RBC (Bld) [#/Vol] 10*3/uL Normal <0.01 [facility] Comment on above: Order Comment: Speci men Type: BLOOD SPECIMENOrdering Facility: [facility] Address: [address] [place] [address] Performed By: #### 1 3317-3 #### [facility] CLIA [id number] [address] [place] [address] [place] Nucleated RBC/100 WBC (Bld) [Ratio] 0.0 /100 WBC Normal [facility] Comment on above: Order Comment: Speci men Type: BLOOD SPECIMENOrdering Facility: [facility] Address: [address] [place] [address] Performed By: #### 1 3317-3 #### [facility] CLIA [id number] [address] [place] [address] [place] Platelet mean volume (Bld) [Entitic vol] 9.8 fL Normal 9.0-12.7 [facility] Comment on above: Order Comment: Speci men Type: BLOOD SPECIMENOrdering Facility: [facility] Address: [address] [place] [address] Performed By: #### 1 3317-3 #### [facility] CLIA [id number] [address] [place] [address] [place] Platelets (Bld) [#/Vol] 265 10*3/uL Normal 150-400 [facility] Comment on above: Order Comment: Speci men Type: BLOOD SPECIMENOrdering Facility: [facility] Address: [address] [place] [address] Performed By: #### 1 3317-3 #### [facility] CLIA [id number] [address] [place] [address] [place] RBC (Bld) [#/Vol] 4.42 10*6/uL Normal 3.90-5.20 [facility] Comment on above: Order Comment: Speci men Type: BLOOD SPECIMENOrdering Facility: [facility] Address: [address] [place] [address] Performed By: #### 1 3317-3 #### [facility] CLIA [id number] [address] [place] [address] [place] WBC (Bld) [#/Vol] 9.10 10*3/uL Normal 3.70-11.00 [facility] Comment on above: Order Comment: Speci men Type: BLOOD SPECIMENOrdering Facility: [facility] Address: [address] [place] [address] Performed By: #### 1 3317-3 #### [facility] CLIA [id number] [address] [place] [address] OF ANDIE Benigno 07-27-2024 GRANTN Telephone (SHEA) KVNG LANDRY ([id number]) 1970 F Date Time Provider Department 07/27/24 MAE LOPEZ During your visit today, we recorded the following information about you: Mae Lopez APRN.COUNSELING CASE MANAGER 07/27/2024 3:22 PM Signed Good afternoon, Patient was seen in [facility] today; she had a syncopal episode requiring ER visit via squad from outpatient x-ray. I faxed a letter for optimization to her certified industrial hygienist Dr. Liu at [facility]. Can we call their office to see if patient can be evaluated pre-op? She has been trying to get in touch with them for the past week and has not received a return call. If she cannot be seen, I was going to try and get her into a [facility] certified industrial hygienist. Thank you for your assistance, Mae Lopez APRN.Latisha Christine RN 07/28/2024 11:23 AM Signed Good Morning Mae, Spoke with DR Liu's office, they do not have any available apts until the middle of August. Last OV was Feb 2024 and she will fax that over to us. They did receive the faxed letter, however it has not been completed Maricel, Could you pls see if there are any [facility] available appointments and touch base with pt? The pt lives in [facility], so maybe [place] or [place]? Thank you, Latisha Patrick RN July 28, 2024 11:21 AM Moraima Gomez 07/28/2024 2:22 PM Signed Dre Maricel is out the office until tomorrow morning. I did check to see if there were any openings and currently the first opening that is showing is 11/30/24. Maricel can check back again in the morning once she returns so the office. Thanks, Maxine Infante 08/03/2024 10:13 AM Signed Patient is calling and stating that [facility] faxed a letter of clearance to you on 07/30/2024. Please advise patient if you received this. Allergies As of Date: 07/27/2024 Noted Allergy Reaction CODEINE 12/03/2008 10 - Anaphylaxis 14 - Other: See Comments ERYTHROMYCIN 07/20/2014 2 - Rash 7 - Swelling TORADOL (KETOROLAC) 07/20/2014 9 - Itching Comments: Given with Vicodin at the time of the reaction. VICODIN (HYDROCODONE-ACETAMINOP HE*07/20/2014 9 - Itching Comments: Given with Toradol at the time of the reaction. AMLODIPINE 01/23/2023 14 - Other: See Comments CEFDINIR 12/03/2008 14 - Other: See Comments COPAXONE (GLATIRAMER) 04/01/2023 12 - Shortness of Breath HYDROCODONE 12/03/2008 14 - Other: See Comments JARDIANCE (EMPAGLIFLOZIN) 04/01/2023 14 - Other: See Comments Comments: Chronic yeast infection PENICILLINS 07/20/2014 4 - Hives Date Reviewed: 07/27/2024 Reviewed by: Mae Lopez APRN.COUNSELING CASE MANAGER - Fully Assessed Reason for Visit: Cardiac optimization letter [Other] Patient Question [4697] Prescriptions as of 08/03/2024 - lidocaine (SALONPAS) 4 % patch APPLY ONE PATCH AT NIGHT AND LEAVE ON FOR 12 HOURS THEN REMOVE DURING THE DAY - sertraline (ZOLOFT) 50 mg tablet 1 tablet every day by oral route. - carvedilol (COREG) 25 mg tablet Take by mouth once daily. - oxyCODONE-acetaminophen (PERCOCET) 5-325 mg tablet Take 1 tablet by mouth every 8 hours as needed for pain. - FREESTYLE LUIS MIGUEL 3 SENSOR wilbur CHANGE SENSOR EVERY 14 DAYS - cholecalciferol, Vitamin D3, (VITAMIN D3) 1,250 mcg (50,000 unit) cap capsule Take 1 capsule by mouth one time a week. - TRUE METRIX GLUCOSE TEST STRIP test strip use 1 TEST STRIP to TEST BLOOD SUGAR four times a day - TRUE METRIX GLUCOSE METER as directed. - TRUEPLUS LANCETS 30 gauge use 1 LANCET to TEST BLOOD SUGAR four times a day - LORazepam (ATIVAN) 1 mg tablet Take 1 tablet by mouth every 12 hours. - cholecalciferol (VITAMIN D3) 1,000 unit tab tablet Take 1 tablet by mouth every afternoon. - tiZANidine (ZANAFLEX) 4 mg tablet Take 4 mg by mouth daily at bedtime. - levothyroxine (SYNTHROID) 150 mcg tablet Take 1 tablet by mouth every afternoon. - insulin lispro (HUMALOG KWIKPEN) 100 unit/mL inject 10 units subcutaneously three times a day - aspirin, enteric coated (ASPIRIN, ENTERIC COATED) 81 mg EC tablet Take 81 mg by mouth once daily. - omega-3 fatty acids/fish oil (FISH OIL-OMEGA-3 FATTY ACIDS) 300-1,000 mg cap Take by mouth. - Multivitamins-Minerals- Lutein (MULTIVITAMIN 50 PLUS) tab Take 1 tablet by mouth once daily. - Ascorbic Acid (VITAMIN C) 1,000 mg tablet Take 1,000 mg by mouth once daily. - diroximel fumarate (VUMERITY) 231 mg capsule, delayed release Take 462 mg by mouth two times a day. - hydroCHLOROthiazide 25 mg tablet Take 12.5 mg by mouth once daily. - rosuvastatin (CRESTOR) 5 mg tablet Take 5 mg by mouth once daily. - metoprolol succinate ER (TOPROL XL) 50 mg 24 hr tablet Take 50 mg by mouth two times a day. - insulin glargine (LANTUS SOLOSTAR U-100 INSULIN) 100 unit/mL (3 mL) Inject 32 Units subcutaneously every morning. - gabapentin (NEURONTIN) 300 mg capsule Take 600 mg by (more content not included)... Normal [facility] Telephone ([employer]) KVNG LANDRY ([id number]) 1970 F Date Time Provider Department 07/27/24 SISI TRUONG During your visit today, we recorded the following information about you: Sisi Truong LPN 07/27/2024 2:37 PM Signed Faxed signed records release to [facility] records dept. @ [phone] , requesting EKG , ,Echo, Pakemaker/AICD check, ER notes and chest xray , CT scan . Fax receipt obtained , placed in scanning. Sisi Truong LPN 07/28/2024 9:14 AM Signed Records received , provider notified and asked PSS to scan into chart TAMIKO , as this is time sensitive for patients upcoming surgery on 08/10/24 Allergies As of Date: 07/27/2024 Noted Allergy Reaction CODEINE 12/03/2008 10 - Anaphylaxis 14 - Other: See Comments ERYTHROMYCIN 07/20/2014 2 - Rash 7 - Swelling TORADOL (KETOROLAC) 07/20/2014 9 - Itching Comments: Given with Vicodin at the time of the reaction. VICODIN (HYDROCODONE-ACETAMINOP HE*07/20/2014 9 - Itching Comments: Given with Toradol at the time of the reaction. AMLODIPINE 01/23/2023 14 - Other: See Comments CEFDINIR 12/03/2008 14 - Other: See Comments COPAXONE (GLATIRAMER) 04/01/2023 12 - Shortness of Breath HYDROCODONE 12/03/2008 14 - Other: See Comments JARDIANCE (EMPAGLIFLOZIN) 04/01/2023 14 - Other: See Comments Comments: Chronic yeast infection PENICILLINS 07/20/2014 4 - Hives Date Reviewed: 07/27/2024 Reviewed by: Mae Lopez APRN.COUNSELING CASE MANAGER - Fully Assessed Prescriptions as of 07/28/2024 - lidocaine (SALONPAS) 4 % patch APPLY ONE PATCH AT NIGHT AND LEAVE ON FOR 12 HOURS THEN REMOVE DURING THE DAY - sertraline (ZOLOFT) 50 mg tablet 1 tablet every day by oral route. - carvedilol (COREG) 25 mg tablet Take by mouth once daily. - oxyCODONE-acetaminophen (PERCOCET) 5-325 mg tablet Take 1 tablet by mouth every 8 hours as needed for pain. - FREESTYLE LUIS MIGUEL 3 SENSOR wilbur CHANGE SENSOR EVERY 14 DAYS - cholecalciferol, Vitamin D3, (VITAMIN D3) 1,250 mcg (50,000 unit) cap capsule Take 1 capsule by mouth one time a week. - TRUE METRIX GLUCOSE TEST STRIP test strip use 1 TEST STRIP to TEST BLOOD SUGAR four times a day - TRUE METRIX GLUCOSE METER as directed. - TRUEPLUS LANCETS 30 gauge use 1 LANCET to TEST BLOOD SUGAR four times a day - LORazepam (ATIVAN) 1 mg tablet Take 1 tablet by mouth every 12 hours. - cholecalciferol (VITAMIN D3) 1,000 unit tab tablet Take 1 tablet by mouth every afternoon. - tiZANidine (ZANAFLEX) 4 mg tablet Take 4 mg by mouth daily at bedtime. - levothyroxine (SYNTHROID) 150 mcg tablet Take 1 tablet by mouth every afternoon. - insulin lispro (HUMALOG KWIKPEN) 100 unit/mL inject 10 units subcutaneously three times a day - aspirin, enteric coated (ASPIRIN, ENTERIC COATED) 81 mg EC tablet Take 81 mg by mouth once daily. - omega-3 fatty acids/fish oil (FISH OIL-OMEGA-3 FATTY ACIDS) 300-1,000 mg cap Take by mouth. - Multivitamins-Minerals- Lutein (MULTIVITAMIN 50 PLUS) tab Take 1 tablet by mouth once daily. - Ascorbic Acid (VITAMIN C) 1,000 mg tablet Take 1,000 mg by mouth once daily. - diroximel fumarate (VUMERITY) 231 mg capsule, delayed release Take 462 mg by mouth two times a day. - hydroCHLOROthiazide 25 mg tablet Take 12.5 mg by mouth once daily. - rosuvastatin (CRESTOR) 5 mg tablet Take 5 mg by mouth once daily. - metoprolol succinate ER (TOPROL XL) 50 mg 24 hr tablet Take 50 mg by mouth two times a day. - insulin glargine (LANTUS SOLOSTAR U-100 INSULIN) 100 unit/mL (3 mL) Inject 32 Units subcutaneously every morning. - gabapentin (NEURONTIN) 300 mg capsule Take 600 mg by mouth two times a day. - losartan (COZAAR) 50 mg tablet Take 50 mg by mouth two times a day. - acetaminophen (TYLENOL) 500 mg tablet Take 1 tablet by mouth every 6 hours as needed. 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*03/19/2017 Spondylolisthesis of lumbar region [M43.16] 03/19/2017 Abnormal electrocardiography [R94.31] 07/17/2023 Diagnosed: 07/17/2023 Candidiasis of vagina [B37.31] 07/17/2023 07/18/2023 Diagnosed: 07/17/2023 Spondylosis of cervical spine [M47.812] 03/09/2022 Diagnosed: 07/17/2023 Chest pain [R07.9] 07/17/2023 Diagnosed: 07/17/2023 Diabetes mellitus (HCC) [E11.9] 01/21/2023 Diagnosed: 07/17/2023 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/2023 Diagnosed: 07/17/2023 Dyspnea on exertion [R06.09] 07/17/2023 Diagnosed: 07/17/2023 Fatigue [R53.83] 11/15/2022 Diagnosed: 07/17/2023 History of cardiac catheterization [Z98.890] 07/30/2018 Diagnosed: 07/17/2023 Hyperlipidemia [E78.5] 01/21/2023 Diagnosed: 07/17/2023 (more content not included)... Normal [facility] [id number] 07-27-2024 ECG01 Ventricular Rate : 6 9 BPM Atrial Rate : 69 BPM P-R Interval : 214 ms QRS Duration : 104 ms Q-T Interval : 422 ms QTC Calculation(Bazett) : 452 ms Calculated P [place] : -3 degrees Calculated R [place] : 11 degrees Calculated T [place] : 9 degrees AV DUAL-PACED RHYTHM WITH PROLONGED AV CONDUCTION ABNORMAL ECG Confirmed by JIMMY CUMMINS MD ([id number]) on 07/28/2024 7:07:10 PM NAME : KVNG LANDRY PID : [id number] : 1970 Gender : Female Race : ORD : Procedure Date : Jul 27 2024 13:35:24 Edit Date : Jul 28 2024 19:07:11 Diagnosis: AV DUAL-PACED RHYTHM WITH PROLONGED AV CONDUCTION ABNORMAL ECG Confirmed by JIMMY CUMMINS MD ([id number]) on 07/28/2024 7:07:10 PM Test Reason : Location : [address] [place] [address] Overread By : JIMMY CUMMINS MD Edited By : JIMMY CUMMINS MD Referred By : SHAWN EVERETT Acquired by : , Normal [facility] HISTORY PHYSICALon HISTORY PHYSICAL HNO ID: [id number] Author: AME LOPEZ APRN.CNP Service: ? Author Type: Nurse Practitioner Type: H&P Filed: 08/07/2024 09:38 Note Text: [facility] HISTORY AND PHYSICAL EXAMINATION SERVICE DATE: 07/27/2024 SERVICE TIME: 1:23 PM PRIMARY CARE PHYSICIAN: Elmer Richards MD Assessment Patient has the following medical conditions which may affect alireza-operative course: Anxiety Assessment: Mood stable on sertraline, follows with PCP Coronary-myocardial bridge Assessment: Follows with certified industrial hygienist Dr. Liu, last OV 03/02/24. Letter faxed for optimization/cardiology records. Denies CP or palpitations; has baseline exertional dyspnea. ADDENDUM 08/07/24: Cardiac optimization letter and OV notes received from Dr. Ji and scanned into [employer]. 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 Had exacerbation in May 2024 which was treated with 3 days of IV Solu-Medrol outpatient. Obesity, Class III, BMI >= 40 Assessment: Body mass index is 47.52 kg/m?. Procedure scheduled appropriately at hospital based OR at [place]. Paroxysmal atrial fibrillation (HCC) Assessment: Hx PVCs and PAF. Follows with certified industrial hygienist Dr. Liu, last OV 03/02/24. Hx PPM, EKG in [facility] today shows atrial-paced rhythm with no extra beats. Controlled on carvedilol. PONV (postoperative nausea and vomiting) Assessment: Potential issue, would likely benefit from premedication due to history of PONV in the past Presence of cardiac pacemaker Assessment: PPM present, last interrogation on 09/12/23 reviewed. Follows with certified industrial hygienist, Dr. Liu, last OV 03/02/24. Type of device/Virology Teacher: [employer] [id number] [place] XT DR VANG Last interrogation: 09/12/23 Pacemaker dependency: Yes Surgical site: Lumbar spine Location of CIED generator in body: Chest Device rep needed: No ADDENDUM 07/28/24: Pacemaker check received in ER records; last check was 07/20/24. 11.4 years battery life remaining. Pacemaker dependent. RA (rheumatoid arthritis) (HCC) Assessment: Chronic back/joint pain. Had steroid burst earlier this month for knee pain. On Percocet, diclofenac, gabapentin, Zanaflex. Systemic lupus erythematosus (HCC) Assessment: No current treatment. Has chronic back/joint pain. History of syncope Assessment: Patient was transferred via squad to [facility] ER 07/20/24 from an outpatient x-ray due to syncopal episode. Patient states ER decreased BP medications. Fax for records sent; patient states she had CT head and x-ray. EKG today shows atrial-paced rhythm. Anesthesia consulted for chart review and letter also sent to certified industrial hygienist for optimization. ADDENDUM 07/28/24: Chart reviewed by staff anesthesiologist Dr. Aguayo; okay to proceed pending cardiac optimization. ADDENDUM 08/07/24: Cardiac optimization letter and OV notes received from Dr. Ji and scanned into [employer]. ANESTHESIA FINDINGS: Intubation History: No abnormal airway history Significant Anesthesia Considerations: +has required ultrasound guidance potential postop nausea/vomiting potential slow emergence potential difficult IV/vein access Airway History: No abnormal airway history Lu Activity Status Index: METS: Walk indoors, such as around the house (1.75 METs) Do light work around the house, such as dusting or washing dishes (2.70 METs) Take care of self; that is eating, dressing, bathing, using the toilet (2.75 METs) DASI Score: 7.2 Patient denies any chest pain or undue shortness of breath with the above physical activity. Dependency List (Category): +SOB with most activity due to back/joint pain. Clinical Frailty Scale: 4. Apparently vulnerable STOP-Bang Score: Has or is being treated for high blood pressure BMI greater than 35 kg/m2 Patient over 50 years old Denies snoring loudly Denies feeling tired, fatigued, or sleepy during the daytime Has not been observed to stop breathing or choking/gasping during sleep Does not have a large neck Non-male patient STOP-Bang Score: 3 [id number] Score: Age: <65 Sex: female CHF history: No Hypertension history: Yes Stroke/TIA/thromboembol ism history: No Vascular disease history: No Diabetes history: Yes [id number] Score: 3 ARISCAT Score: Age: (more content not included)... Normal [facility] MRSA Spec Ql Culton 03-24-20 25 MRSA isol Org specific cx Ql (Unsp spec) STAPHYLOCOCCUS AUREUS CULTURE: No growth Normal [facility] Comment on above: Performed By: #### 1 3317-3 #### [facility] CLIA [id number] [address] [place] [address] [place] TYPE AND SCREEN,30 DAYon ABO B Normal [facility] Comment on above: Order Comment: Speci men Type: BLOOD SPECIMENOrdering Facility: [facility] Address: [address] [place] [address] Performed By: #### 1 3317-3 #### [facility] CLIA [id number] [address] [place] [address] [place] Rh Nom (Bld) Negative Normal [facility] Comment on above: Order Comment: Speci men Type: BLOOD SPECIMENOrdering Facility: [facility] Address: [address] [place] [address] Performed By: #### 1 3317-3 #### [facility] CLIA [id number] [address] [place] [address] [place] Consult Reporton 07-24-2024 Consult Report Patient: KVNG LANDRY Age: 53 years Sex: Female : 1970 Associated Diagnoses: None Author: JOE MCLAIN, TYLER Basic Information 53-year-old female admitted for syncopal episode while having an x-ray done at the [facility] of her right knee. Upon examination and review of radiographs her pain is consistent with moderate degenerative joint disease of the right knee. Some of her pain is likely contributed by from her lumbar spine pathology as well. There is no current evidence of any infectious process to the knee and no clear evidence of any stress fracture either at this time. She was recently initiated on oral prednisone and has an upcoming spine surgery. Thus I would not recommend any invasive treatment such as cortisone injection until approved by her spine surgeon as not to delay her planned surgery. She may ambulate as tolerated likely using a walker and weight-bear as tolerated to the right lower extremity. Will have physical therapy and Occupational Therapy consult her and she can follow-up with me on an outpatient basis as needed. We discussed treatment of osteoarthritis conservative measures at length. Thank you for this consultation Chief Complaint Left ankle pain History of Present Illness 53-year-old female whom was at the [facility] today obtaining an x-ray of her right knee in preparation for upcoming spine surgery and sustained a syncopal episode for which she was brought to our emergency department for further care. She reports her knee pain is somewhat acute on chronic. She describes it as sharp and achy to the medial aspect worse with attempted motion and difficult with weightbearing. Her PCP recently started her on prednisone which has not improved her condition. She has tried some topical things as well without significant relief. Again she is preparing for spine surgery at the beginning of August as well. Histories Past Medical History: Active Problems (1) At risk for falls Family History: No family history items have been selected or recorded. Social History Social History No active social history has been recorded Psychosocial History No active psychosocial history has been recorded . Health Status Allergies (8) Active Severity Reaction azithromycin None Documented Copaxone None Documented erythromycin None Documented Jardiance None Documented penicillin None Documented Toradol None Documented Vicodin None Documented Augmentin Torulosis .Current medications: Home Meds (ST) Home Medications (16) Active Coreg 25 mg oral tablet 25 mg = 1 tabs, ORAL, BID Cozaar 50 mg oral tablet 50 mg = 1 tabs, ORAL, BID Crestor 5 mg oral tablet 5 mg = 1 tabs, ORAL, QHS HumaLOG 100 units/mL injectable solution 12 units, Subcutaneous, TIDAC HumaLOG 100 units/mL injectable solution home scale, Subcutaneous, TIDWM hydroCHLOROthiazide 25 mg oral tablet 25 mg = 1 tabs, ORAL, DAILY Lantus 100 units/mL subcutaneous solution 32 units, Subcutaneous, DAILY lidocaine 4% patch 1 patches, Topical, QHS Neurontin 600 mg oral tablet 600 mg = 1 tabs, ORAL, BID oxyCODONE 5 mg oral tablet (IR) 5 mg = 1 tabs, ORAL, QHS Synthroid 150 mcg (0.15 mg) oral tablet 150 mcg = 1 tabs, ORAL, DAILY Vitamin D3 1250 mcg (50,000 intl units) oral capsule 1,250 mcg = 1 caps, ORAL, SATURDAY Vitamin D3 50 mcg (2000 intl units) oral tablet 50 mcg = 1 tabs, ORAL, DAILY Vumerity 231 mg oral delayed release capsule 462 mg = 2 caps, ORAL, BID Zanaflex 4 mg oral tablet 4 mg = 1 tabs, ORAL, QHS Zoloft 50 mg oral tablet 50 mg = 1 tabs, ORAL, QHS Review of Systems Constitutional: Negative except as documented in history of present illness. Eye: Negative except as documented in history of present illness. Ear/Nose/Mouth/Throat: Negative except as documented in history of present illness. Respiratory: Negative except as documented in history of present illness. Cardiovascular: Negative except as documented in history of present illness. Gastrointestinal: Negative except as documented in history of present illness. Genitourinary: Negative except as documented in history of present illness. Hematology/Lymphatics: Negative except as documented in history of present illness. Endocrine: Negative except as documented in history of present illness. Immunologic: Negative except as documented in history of present illness. Musculoskeletal: Back pain: The pain is moderate. Integumentary: Negative except as documented in history of present illness. Neurologic: Negative except as documented in history of present illness. Psychiatric: Negative except as documented in history of present illness. Physical Examination VS/Measurements Measurements from flowsheet : Measurements 07/20/2024 10:04 EDT Weight Measured Type of Scale Bed Scale (digital) Height/Length Dosing 152.40 cm Weight Dosing 115.9 kg Body Mass Index Dosing 50 , Vital Signs (last 24 hrs)__ (more content not included)... Normal [facility] CBCNDon 07-21-2024 Erythrocyte distribution width (RBC) [Ratio] 13.0 % Normal 11.5-14.5 [facility] Comment on above: Performed By: #### 1 [id number], [id number] #### [facility] [address] [place] [address] [employer] Network Engineer: Dewayne Faustin MD Hematocrit (Bld) [Volume fraction] 36.2 % Normal 36.0-46.0 [facility] Comment on above: Performed By: #### 1 [id number] #### [facility] [address] [place] [address] [employer] Engineer: Dewayne Faustin MD Hemoglobin (Bld) [Mass/Vol] 12.6 g/dL Normal 12.0-16.0 [facility] Comment on above: Performed By: #### 1 [id number], [id number] #### [facility] [address] [place] [id number] [employer] Network Engineer: Dewayne Faustin MD Instr WBC ND 9.0 Normal [facility] Comment on above: Performed By: #### 1 00543, [id number], [id number] #### [facility] [address] [place] [address] 79071 [employer] Network Engineer: Dewayne Faustin MD MCH (RBC) [Entitic mass] 30.6 pg Normal 27.0-34.0 [facility] Comment on above: Performed By: #### 1 74098, [id number], [id number] #### [facility] [address] [place] [address] 67375 [employer] Network Engineer: Dewayne Faustin MD MCHC (RBC) [Mass/Vol] 34.8 g/dL Normal 32.0-37.0 [facility] Comment on above: Performed By: #### 1 18263, [id number], [id number] #### [facility] [address] [place] [address] 00624 [employer] Network Engineer: Dewayne Faustin MD MCV (RBC) [Entitic vol] 87.9 fL Normal 80.0-100.0 [facility] Comment on above: Performed By: #### 1 26900, [id number], [id number] #### [facility] [address] [place] [address] 09198 [employer] Network Engineer: Dewayne Faustin MD Platelet 294 x10 Normal 150-450 [facility] Comment on above: Performed By: #### 1 36519, 267745, [id number] #### [facility] [address] [place] [address] 65939 [employer] Network Engineer: Dewayne Faustin MD Platelet mean volume (Bld) [Entitic vol] 7.6 fL Normal 7.4-10.4 [facility] Comment on above: Performed By: #### 1 52807, 923954, [id number] #### [facility] [address] [place] [address] 91216 [employer] Network Engineer: Dewayne Faustin MD RBC 4.12 x10 Low 4.20-5.40 [facility] Comment on above: Result Comment: Note : RBC morphology is normal unless otherwise stated. Evaluation performed only if differential is requested. Performed By: #### 1 68497, [id number], [id number] #### [facility] [address] [place], [place] [id number] [employer] Network Engineer: Dewayne Faustin MD WBC 9.0 x10 Normal 4.5-11.0 [facility] Comment on above: Performed By: #### 1 35668, 545431, [id number] #### [facility] [address] [place], [place] [id number] [employer] Network Engineer: Dewayne Faustin MD HGB A1Con 07-21-2024 HbA1c (Bld) [Mass fraction] 7.0 % Normal [facility] Comment on above: Result Comment: Refe rence Range: Diabetic Greater than or equal to 6.5 % Prediabetic 5.7?6.4 % Normal Less than 5.7 % Performed By: #### 1 [id number] #### [facility] [address] [place], [place] [id number] [employer] Network Engineer: Dewayne Faustin MD MG LEVELon 07-21-2024 Magnesium [Mass/Vol] 1.7 mg/dL Normal 1.6-2.6 [facility] Comment on above: Performed By: #### 1 76863, 414165, [id number] #### [facility] [address] [place] [address] 73228 [employer] Network Engineer: Dewayne Faustin MD POC Glucoseon 07-21-2024 Glucose [Mass/Vol] 128 mg/dL High 72-100 [facility] Comment on above: Performed By: #### 6 [id number] #### [facility] [address] [place] [address] 29963 [employer] Network Engineer: Dewayne Faustin MD Glucose [Mass/Vol] 159 mg/dL High 72-100 [facility] Comment on above: Performed By: #### 1 01656, 118688, [id number] #### [facility] [address] [place] [address] 93643 [employer] Network Engineer: Dewayne Faustin MD RENAL PNLon 07-21-2024 Albumin [Mass/Vol] 3.0 g/dL Low 3.4-5.0 [facility] Comment on above: Performed By: #### 1 25145, 205943, [id number] #### [facility] [address] [place] [address] 95597 [employer] Network Engineer: Dewayne Faustin MD Calcium [Mass/Vol] 10.0 mg/dL Normal 8.5-10.5 [facility] Comment on above: Performed By: #### 1 16171, 608805, [id number] #### [facility] [address] [place] [address] 05187 [employer] Network Engineer: Dewayne Faustin MD Calcium [Mass/Vol] 9.2 mg/dL Normal 8.7-10.4 [facility] Comment on above: Performed By: #### 1 08917, 717433, [id number] #### [facility] [address] [place] [address] 52453 [employer] Network Engineer: Dewayne Faustin MD Chloride [Moles/Vol] 100 mmol/L Normal 98-107 [facility] Comment on above: Performed By: #### 1 96089, 193929, [id number] #### [facility] [address] [place] [address] 98180 [employer] Network Engineer: Dewayne Faustin MD CO2 [Moles/Vol] 29.0 mmol/L Normal 20.0-31.0 [facility] Comment on above: Performed By: #### 1 52127, 863701, [id number] #### [facility] [address] [place] [address] [employer] Network Engineer: Dewayne Faustin MD Creatinine [Mass/Vol] 0.7 mg/dL Normal 0.5-0.8 [facility] Comment on above: Performed By: #### 1 05519, 208014, [id number] #### [facility] [address] [place] [address] 55107 [employer] Network Engineer: Dewayne Faustin MD GFR AA >60 Normal [facility] Comment on above: Result Comment: Afri can Israeli GFR Calc Medical judgement is necessary to interpret GFR. The calculated GFR may not accurately reflect renal status in patients >70 years, women, acutely ill hospitalized patients and patients with acute renal failure or known renal disease. The MDRD GFR formula is valid only for adults greater than 18 years of age. Note: Creatinine clearance (not GFR) should be used for drug dosing. Performed By: #### 1 08497, 688036, [id number] #### [facility] [address] [place] [address] 65639 [employer] Network Engineer: Dewayne Faustin MD Glomerular Filtration Rate >60 Normal [facility] Comment on above: Result Comment: Non- GFR Calc Medical judgement is necessary to interpret GFR. The calculated GFR may not accurately reflect renal status in patients >70 years, women, acutely ill hospitalized patients and patients with acute renal failure or known renal disease. The MDRD GFR formula is valid only for adults greater than 18 years of age. Note: Creatinine clearance (not GFR) should be used for drug dosing. Performed By: #### 1 10427, 027193, [id number] #### [facility] [address] [place] [address] 52451 [employer] Network Engineer: Dewayne Faustin MD Glucose [Mass/Vol] 171 mg/dL High 74-106 [facility] Comment on above: Performed By: #### 1 86481, 532796, [id number] #### [facility] [address] [place] [address] 25353 [employer] Network Engineer: Dewayne Faustin MD Osmolality [Osmolality] 283 mosm/kg Normal 275-295 [facility] Comment on above: Performed By: #### 1 21863, 714020, [id number] #### [facility] [address] [place] [address] 63809 [employer] Network Engineer: Dewayne Faustin MD Phosphate [Mass/Vol] 3.2 mg/dL Normal 2.0-5.1 [facility] Comment on above: Result Comment: Bloo d samples from some patients with monoclonal gammopathies may produce falsely elevated results Performed By: #### 1 71744, 923309, [id number] #### [facility] [address] [place] [address] 81216 [employer] Network Engineer: Dewayne Faustin MD Potassium [Moles/Vol] 3.7 mmol/L Normal 3.5-5.1 [facility] Comment on above: Performed By: #### 1 08145, 302322, [id number] #### [facility] [address] [place] [address] 97390 [employer] Network Engineer: Dewayne Faustin MD Sodium [Moles/Vol] 139 mmol/L Normal 135-145 [facility] Comment on above: Performed By: #### 1 73286, 480244, [id number] #### [facility] [address] [place] [address] 33684 [employer] Network Engineer: Dewayne Faustin MD Urea nitrogen [Mass/Vol] 15 mg/dL Normal 9-23 [facility] Comment on above: Result Comment: - Ve nipuncture should occur prior to N-Acetyl Cysteine (NAC) or Metamizole (Sulpyrine) administration due to the potential for falsely depressed results. - Blood samples from some patients with monoclonal gammopathies may produce falsely elevated results Performed By: #### 1 31589, 024700, [id number] #### [facility] [address] [place] [address] 64358 [employer] Network Engineer: Dewayne Faustin MD Urea nitrogen/Creatinine [Mass ratio] 21.4 mg/mg Normal [facility] Comment on above: Performed By: #### 1 23561, 037434, [id number] #### [facility] [address] [place] [address] 30860 [employer] Network Engineer: MD CARMEN Lowery Recheckon 07-20-2024 a cells 4+ Normal [facility] Comment on above: Performed By: #### 1 [id number] #### [facility] [address] [place] [address] 99307 [employer] Network Engineer: Dewayne Faustin MD ABO Interp Negative Normal [facility] Comment on above: Performed By: #### 1 [id number] #### [facility] [address] [place] [address] 14004 [employer] Network Engineer: Dewayne Faustin MD Anti-A 0 Normal [facility] Comment on above: Performed By: #### 1 [id number] #### [facility] [address] [place] [address] 00535 [employer] Network Engineer: Dewayne Faustin MD Anti-B 4+ [facility] Comment on above: Performed By: #### 1 [id number] #### [facility] [address] [place] [address] 15210 [employer] Network Engineer: Dewayne Faustin MD Anti-D 0 [facility] Comment on above: Performed By: #### 1 [id number] #### [facility] [address] [place] [address] 26646 [employer] Network Engineer: Dewayne Faustin MD b cells 0 [facility] Comment on above: Performed By: #### 1 [id number] #### [facility] [address] [place] [address] 33799 [employer] Network Engineer: Dewayne Faustin MD ABORHon 07-20-2024 ABORH Interpretation Negative Normal [facility] Comment on above: Performed By: #### 6 [id number], [id number] #### [facility] [address] [place] [address] 34823 [employer] Network Engineer: Dewayne Faustin MD Patient History Check No Previous Hx Normal [facility] Comment on above: Result Comment: 07/04 12:41 03572 ABO Recheck Ordered Performed By: #### 6 [id number], [id number] #### [facility] [address] [place] [address] 36806 [employer] Network Engineer: Dewayne Faustin MD VS 0.8% a cells 3+ [facility] Comment on above: Performed By: #### 6 [id number], [id number] #### [facility] [address] [place] [address] 46198 [employer] Network Engineer: Dewayne Faustin MD VS 0.8% b cells 0 [facility] Comment on above: Performed By: #### 6 [id number], [id number] #### [facility] [address] [place] [address] 92375 [employer] Network Engineer: Dewayne Faustin MD VS Anti-A Unit 0 Normal [facility] Comment on above: Performed By: #### 6 [id number], [id number] #### [facility] [address] [place] [address] 26545 [employer] Network Engineer: Dewayne Faustin MD VS Anti-B Unit 4+ Normal [facility] Comment on above: Performed By: #### 6 [id number], [id number] #### [facility] [address] [place] [address] 61783 [employer] Network Engineer: Dewayne Faustin MD VS Anti-D Unit 0 [facility] Comment on above: Performed By: #### 6 [id number], [id number] #### [facility] [address] [place] [address] 20109 [employer] Network Engineer: Dewayne Faustin MD ABSCon 07-20-2024 ABSC Final Interp Negative Normal [facility] Comment on above: Performed By: #### 6 [id number], [id number] #### [facility] [address] [place] [address] 80585 [employer] Network Engineer: Dewayne Faustin MD Pt Hx check done? Yes Normal [facility] Comment on above: Performed By: #### 6 [id number], [id number] #### [facility] [address] [place] [address] 29885 [employer] Network Engineer: Dewayne Faustin MD VS SCI Gel 0 [facility] Comment on above: Performed By: #### 6 [id number], [id number] #### [facility] [address] [place] [address] 46500 [employer] Network Engineer: Dewayne Faustin MD VS SCII Gel 0 [facility] Comment on above: Performed By: #### 6 [id number], [id number] #### [facility] [address] [place] [address] 56461 [employer] Network Engineer: Dewayne Faustin MD APTTon 07-20-2024 aPTT Coag (Bld) [Time] 27.1 s Normal 26.0-36.0 [facility] Comment on above: Result Comment: APTT Interpretation: This test has not been validated to monitor heparin therapy. APTT test is used as an initial test for suspected bleeding disorder. Anti-Xa UFH test is used to monitor heparin therapy. Performed By: #### 6 [id number], [id number] #### [facility] [address] [place] [address] 97791 [employer] Network Engineer: Dewayne Faustin MD AUTO DIFFon 07-20-2024 Baso Count 0.05 x1000 Normal 0.00-0.20 [facility] Comment on above: Performed By: #### 1 77852, 7721433, 665967, 5773153, 949379, 062131, 319119, [id number] #### [facility] [address] [place] [address] 10040 [employer] Network Engineer: Dewayne Faustin MD Basos % 0.3 % Normal [facility] Comment on above: Performed By: #### 1 59480, 2407669, 221213, 2639749, 418676, 417963, 142858, [id number] #### [facility] [address] [place] [address] 95168 [employer] Network Engineer: Dewayne Faustin MD Eos Count 0.52 x1000 High 0.00-0.50 [facility] Comment on above: Performed By: #### 1 53776, 8690425, 952789, 8427379, 194457, 345491, 324491, [id number] #### [facility] [address] [place], [place] [address] [employer] Network Engineer: Dewayne Faustin MD Eosinophils/100 WBC (Bld) 3.2 % Normal [facility] Comment on above: Performed By: #### 1 04028, 1826651, 777704, 1896578, 922469, 270671, 280194, [id number] #### [facility] [address] [place] [address] 97752 [employer] Network Engineer: Dewayne Faustin MD Lymph Count 1.08 x1000 Low 1.20-4.80 [facility] Comment on above: Performed By: #### 1 11361, [id number], 645852, 4195453, 720386, 666947, 484304, [id number] #### [facility] [address] [place] [address] 67539 [employer] Network Engineer: Dewayne Faustin MD Lymphocytes/100 WBC (Bld) 6.7 % Normal [facility] Comment on above: Performed By: #### 1 19405, 6687110, 775913, 5844569, 895005, 268380, 331898, [id number] #### [facility] [address] [place] [address] 36168 [employer] Network Engineer: Dewayne Faustin MD Porter Count 0.83 x1000 Normal 0.10-1.00 [facility] Comment on above: Performed By: #### 1 44583, 7373885, 782750, 5146885, 810913, 720239, 293705, [id number] #### [facility] [address] [place] [address] 62350 [employer] Network Engineer: Dewayne Faustin MD Monocytes/100 WBC (Bld) 5.1 % Normal [facility] Comment on above: Performed By: #### 1 36873, 0857970, 340312, 5674152, 257642, 675129, 927072, [id number] #### [facility] [address] [place] [address] 26680 [employer] Network Engineer: Dewayne Faustin MD Neutrophil Count (ANC) 13.72 x1000 High 1.40-8.80 [facility] Comment on above: Performed By: #### 1 94687, 9859940, 639638, 3902723, 919364, 175529, 968731, [id number] #### [facility] [address] [place] [address] 24060 [employer] Network Engineer: Dewayne Faustin MD Neutrophils/100 WBC (Bld) 84.7 % Normal [facility] Comment on above: Performed By: #### 1 48558, 9428003, 933209, 8358125, 169325, 372704, 625505, [id number] #### [facility] [address] [place] [address] 08685 [employer] Network Engineer: Dewayne Faustin MD Basic Admission Informationo n 07-20-2024 Basic Admission Information Basic Admission Information Entered On: 07/20/2024 17:52 EDT Performed On: 07/20/2024 17:50 EDT by Yoana España Admission Height/Weight Height/Length Measured : 152.40 cm(Converted to: 5.00 ft, 60.00 in) Height/Length Dosing : 152.40 cm(Converted to: 5.00 ft, 60.00 in) Weight Measured : 119.9 kg(Converted to: 264 lb 5 oz, 264.334 lb) Weight Dosing : 115.9 kg(Converted to: 4,088.253 oz, 255.516 lb) BSA Measured : 2.25 BSA Dosing : 2.22 Body Mass Index Measured : 51.62 kg/m2 Body Mass Index Dosing : 50 Weight Measured Type of Scale : Bed Scale (digital) Last Documented Height/Length : Height/Length Dosin.40 cm 07/20/24 10:04:00 Height/Length Estimated: No results available. Height/Length Measured: No results available. Last Documented Weight and Type of Scale Used : Weight Measured Type of Scale: Bed Scale (digital) 07/20/24 10:04:00 Weight Dosin.9 kg 07/20/24 10:04:00 Weight Measured: No results available. Yoana España - 07/20/2024 17:50 EDT Belongings Valuables/Belongings Grid Valuables at Bedside Clothes : Coat, Shirt, Shoes Electronic Devices : Cell phone Yoana España - 07/20/2024 17:50 EDT Patient Safety : Bed / Chair Alarm, Bed in low position, Call device within reach, Fall proposition player ID Band, Falling [place], ID band check, Mobility support items readily available, Non-Slip footwear, Personal items within reach, Sensory aids within reach, Upper/Half-length side-rails up, Traffic path in room free of clutter, Wheels locked Demonstrates Ability to Use Call Light Successfully : Yes Yoana España - 07/20/2024 17:50 EDT Normal [facility] Comment on above: Order Comment: Order entered secondary to admission Benigno 07-20-2024 TOBI Telephone (OT[facility]) KVNG LANDRY ([id number]) 1970 F Date Time Provider Department 07/20/24 STEWART FRANKS During your visit today, we recorded the following information about you: Dalia Cuellar RN 07/20/2024 9:49 AM Signed [facility] Emergency Response Form. NOT TO BE USED AT [facility] Complete this report when the Emergency Medical Response is activated (911 calls/EmergencyTranspor t to the ED) or when a Code Sheet is utilized in the care of a patient (i.e., ASC) Date of the Event: 07/20/24 Time of the Event: 9:14 AM Was emergency response activated? (Local EMS/Emergency Department) YES Location of the Incident: [facility] ([facility]) Reason/Chief Complaint for Emergency Call (Check all that apply): Fall, Hypertension/Hypotensio n, Lack of Consciousnes (LOC), and Mental Status Change/Dizziness/Syncop e CPR Initiated-Chest Compressions and/or Rescue Breathing Provided: NO Facility AED Used-Automatic External Defibrillator: NO EMS AED Used-Automatic External Defibrillator: NO Prior to EMS arrival, was any treatment administered? NO Patient Disposition: Transferred to Hospital ED Butt Welder information: Dalia Cuellar RN Allergies As of Date: 07/20/2024 Noted Allergy Reaction CODEINE 12/03/2008 10 - Anaphylaxis 14 - Other: See Comments ERYTHROMYCIN 07/20/2014 2 - Rash 7 - Swelling TORADOL (KETOROLAC) 07/20/2014 9 - Itching Comments: Given with Vicodin at the time of the reaction. VICODIN (HYDROCODONE-ACETAMINOP HE*07/20/2014 9 - Itching Comments: Given with Toradol at the time of the reaction. AMLODIPINE 01/23/2023 14 - Other: See Comments CEFDINIR 12/03/2008 14 - Other: See Comments COPAXONE (GLATIRAMER) 04/01/2023 12 - Shortness of Breath HYDROCODONE 12/03/2008 14 - Other: See Comments JARDIANCE (EMPAGLIFLOZIN) 04/01/2023 14 - Other: See Comments Comments: Chronic yeast infection PENICILLINS 07/20/2014 4 - Hives Date Reviewed: 09/11/2023 Reviewed by: Claudio Flores RN - Fully Assessed Reason for Visit: Emergency Situation [Other] Prescriptions as of 07/20/2024 - TRUE METRIX GLUCOSE TEST STRIP test strip use 1 TEST STRIP to TEST BLOOD SUGAR four times a day - TRUE METRIX GLUCOSE METER as directed. - TRUEPLUS LANCETS 30 gauge use 1 LANCET to TEST BLOOD SUGAR four times a day - LORazepam (ATIVAN) 1 mg tablet Take 1 tablet by mouth every 12 hours. - cholecalciferol (VITAMIN D3) 1,000 unit tab tablet Take 1 tablet by mouth every afternoon. - tiZANidine (ZANAFLEX) 4 mg tablet - levothyroxine (SYNTHROID) 150 mcg tablet Take 1 tablet by mouth every afternoon. - insulin lispro (HUMALOG KWIKPEN) 100 unit/mL inject 10 units subcutaneously three times a day - aspirin, enteric coated (ASPIRIN, ENTERIC COATED) 81 mg EC tablet Take 81 mg by mouth once daily. - omega-3 fatty acids/fish oil (FISH OIL-OMEGA-3 FATTY ACIDS) 300-1,000 mg cap Take by mouth. - Multivitamins-Minerals- Lutein (MULTIVITAMIN 50 PLUS) tab Take 1 tablet by mouth once daily. - Ascorbic Acid (VITAMIN C) 1,000 mg tablet Take 1,000 mg by mouth once daily. - diroximel fumarate (VUMERITY) 231 mg capsule, delayed release Take 462 mg by mouth two times a day. - hydroCHLOROthiazide 25 mg tablet Take 25 mg by mouth once daily. - rosuvastatin (CRESTOR) 5 mg tablet Take 5 mg by mouth once daily. - metoprolol succinate ER (TOPROL XL) 50 mg 24 hr tablet Take 50 mg by mouth two times a day. - insulin glargine (LANTUS SOLOSTAR U-100 INSULIN) 100 unit/mL (3 mL) Inject subcutaneously. - gabapentin (NEURONTIN) 300 mg capsule Take 400 mg by mouth three times a day as needed (nerve pain). - losartan (COZAAR) 50 mg tablet Take 50 mg by mouth two times a day. - acetaminophen (TYLENOL) 500 mg tablet Take 1 tablet by mouth every 6 hours as needed. 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 Spondylolisthesis of lumbar region [M43.16] 03/19/2017 Abnormal electrocardiography [R94.31] 07/17/2023 Diagnosed: 07/17/2023 Candidiasis of vagina [B37.31] 07/17/2023 07/18/2023 Diagnosed: 07/17/2023 Spondylosis of cervical spine [M47.812] 03/09/2022 Diagnosed: 07/17/2023 Chest pain [R07.9] 07/17/2023 Diagnosed: 07/17/2023 Diabetes mellitus (HCC) [E11.9] 01/21/2023 Diagnosed: 07/17/2023 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 Normal [facility] COMPMETAon 07-20-2024 CO2 [Moles/Vol] 31.0 mmol/L Normal 20.0-31.0 [facility] Comment on above: Performed By: #### 6 [id number], [id number] #### [facility] [address] [place] [address] 44130 [employer] Network Engineer: Dewayne Faustin MD Albumin [Mass/Vol] 3.4 g/dL Normal 3.4-5.0 [facility] Comment on above: Performed By: #### 6 [id number], [id number] #### [facility] [facility] [address] [place] [address] 44130 [employer] Network Engineer: Dewayne Faustin MD Albumin/Globulin [Mass ratio] 1.0 {ratio} Normal [facility] Comment on above: Performed By: #### 6 [id number] #### [facility] [address] [place] [address] 46561 [employer] Network Engineer: Dewayne Faustin MD Alk Phos 77 unit/L Normal 45-117 [facility] Comment on above: Performed By: #### 6 [id number], [id number] #### [facility] [address] [place] [address] 97536 [employer] Network Engineer: Dewayne Faustin MD Bilirubin [Mass/Vol] 0.70 mg/dL Normal 0.30-1.20 [facility] Comment on above: Result Comment: Use of this assay is not recommended for patients undergoing treatment with eltrombopag due to the potential for falsely elevated results. Performed By: #### 6 [id number], [id number] #### [facility] [address] [place] [address] 51093 [employer] Network Engineer: Dewayne Faustin MD Calcium [Mass/Vol] 9.5 mg/dL Normal 8.7-10.4 [facility] Comment on above: Performed By: #### 6 [id number], [id number] #### [facility] [address] [place] [address] 13452 [employer] Network Engineer: Dewayne Faustin MD Chloride [Moles/Vol] 98 mmol/L Normal 98-107 [facility] Comment on above: Performed By: #### 6 [id number], [id number] #### [facility] [address] [place] [address] 36534 [employer] Network Engineer: Dewayne Faustin MD Creatinine [Mass/Vol] 1.0 mg/dL High 0.5-0.8 [facility] Comment on above: Performed By: #### 6 [id number], [id number] #### [facility] [address] [place] [address] 00916 [employer] Network Engineer: Dewayne Faustin MD GFR AA >60 Normal [facility] Comment on above: Result Comment: Afri can Israeli GFR Calc Medical judgement is necessary to interpret GFR. The calculated GFR may not accurately reflect renal status in patients >70 years, women, acutely ill hospitalized patients and patients with acute renal failure or known renal disease. The MDRD GFR formula is valid only for adults greater than 18 years of age. Note: Creatinine clearance (not GFR) should be used for drug dosing. Performed By: #### 6 [id number], [id number] #### [facility] [address] [place] [address] 69677 [employer] Network Engineer: Dewayne Faustin MD Globulin (S) [Mass/Vol] 3.4 g/dL Normal [facility] Comment on above: Performed By: #### 6 [id number], [id number] #### [facility] [address] [place] [address] 10010 [employer] Network Engineer: Dewayne Faustin MD Glomerular Filtration Rate 58 mL/min/1.73m? Normal [facility] Comment on above: Result Comment: Non- GFR Calc Medical judgement is necessary to interpret GFR. The calculated GFR may not accurately reflect renal status in patients >70 years, women, acutely ill hospitalized patients and patients with acute renal failure or known renal disease. The MDRD GFR formula is valid only for adults greater than 18 years of age. Note: Creatinine clearance (not GFR) should be used for drug dosing. Performed By: #### 6 [id number], [id number] #### [facility] [address] [place] [address] 33409 [employer] Network Engineer: Dewayne Faustin MD Glucose [Mass/Vol] 111 mg/dL High 74-106 [facility] Comment on above: Performed By: #### 6 [id number], [id number] #### [facility] [address] [place] [address] 62683 [employer] Network Engineer: Dewayne Faustin MD GOT 17 unit/L Normal 15-37 [facility] Comment on above: Performed By: #### 6 [id number], [id number] #### [facility] [address] [place] [address] 31588 [employer] Network Engineer: Dewayne Faustin MD GPT 21 unit/L Normal 10-49 [facility] Comment on above: Performed By: #### 6 [id number], [id number] #### [facility] [address] [place] [address] 73917 [employer] Network Engineer: Dewayne Faustin MD Osmolality [Osmolality] 280 mosm/kg Normal 275-295 [facility] Comment on above: Performed By: #### 6 [id number], [id number] #### [facility] [address] [place] [address] 11181 [employer] Network Engineer: Dewayne Faustin MD Potassium [Moles/Vol] 3.7 mmol/L Normal 3.5-5.1 [facility] Comment on above: Performed By: #### 6 [id number], [id number] #### [facility] [address] [place] [address] 34745 [employer] Network Engineer: Dewayne Faustin MD Protein [Mass/Vol] 6.8 g/dL Normal 5.7-8.2 [facility] Comment on above: Result Comment: Tota l Protein results may be increased in patients receiving dextran as a blood volume manager employment Performed By: #### 6 [id number], [id number] #### [facility] [address] [place] [address] 13879 [employer] Network Engineer: Dewayne Faustin MD Sodium [Moles/Vol] 139 mmol/L Normal 135-145 [facility] Comment on above: Performed By: #### 6 [id number], [id number] #### [facility] [address] [place] [address] 30758 [employer] Network Engineer: Dewayne Faustin MD Urea nitrogen [Mass/Vol] 18 mg/dL Normal 9-23 [facility] Comment on above: Result Comment: - Ve nipuncture should occur prior to N-Acetyl Cysteine (NAC) or Metamizole (Sulpyrine) administration due to the potential for falsely depressed results. - Blood samples from some patients with monoclonal gammopathies may produce falsely elevated results Performed By: #### 6 [id number], [id number] #### [facility] [address] [place] [address] 15165 [employer] Network Engineer: Dewayne Faustin MD Urea nitrogen/Creatinine [Mass ratio] 18.0 mg/mg Normal [facility] Comment on above: Performed By: #### 6 [id number], [id number] #### [facility] [address] [place] [address] 52864 [employer] Network Engineer: Dewayne Faustin MD CRP QUANTon 07-20-2024 C-Reactive Protein, Quantitative 1.2 mg/dL High 0.0-0.5 [facility] Comment on above: Result Comment: ?- C RP testing for cardiovascular risk assessment should not be performed while there is an indication of active infection, systemic inflammation, or trauma. Performed By: #### 6 [id number], [id number] #### [facility] [address] [place] [address] 36740 [employer] Network Engineer: Dewayne Faustin MD HEMOon 07-20-2024 DIFF? No Normal [facility] Comment on above: Performed By: #### 1 28985, [id number], 842098, 8071223, 761892, 787469, 478437, [id number] #### [facility] [address] [place] [address] 85179 [employer] Network Engineer: Dewayne Faustin MD Erythrocyte distribution width (RBC) [Ratio] 12.9 % Normal 11.5-14.5 [facility] Comment on above: Performed By: #### 1 32927, [id number], 714993, 2441433, 310048, 738076, 088708, [id number] #### [facility] [address] [place] [address] 46781 [employer] Network Engineer: Dewayne Faustin MD Hematocrit (Bld) [Volume fraction] 40.5 % Normal 36.0-46.0 [facility] Comment on above: Performed By: #### 1 16926, [id number], 896368, 7930016, 531091, 500192, 504487, [id number] #### [facility] [address] [place] [address] 90848 [employer] Network Engineer: Dewayne Faustin MD Hemoglobin (Bld) [Mass/Vol] 13.9 g/dL Normal 12.0-16.0 [facility] Comment on above: Performed By: #### 1 10280, [id number], 325156, 5103115, 628686, 051096, 458074, [id number] #### [facility] [address] [place] [address] 13509 [employer] Network Engineer: Dewayne Faustin MD Instr WBC 16.2 Normal [facility] Comment on above: Performed By: #### 1 26399, 6070605, 585163, 6043234, 261250, 606479, 816678, [id number] #### [facility] [address] [place] [address] 42298 [employer] Network Engineer: Dewayne Faustin MD MCH (RBC) [Entitic mass] 30.2 pg Normal 27.0-34.0 [facility] Comment on above: Performed By: #### 1 22100, 0544092, 440641, 0440706, 974556, 647599, 837287, [id number] #### [facility] [address] [place] [address] 44658 [employer] Network Engineer: Dewayne Faustin MD MCHC (RBC) [Mass/Vol] 34.3 g/dL Normal 32.0-37.0 [facility] Comment on above: Performed By: #### 1 74738, 1861907, 117538, 3373922, 774487, 219132, 415209, [id number] #### [facility] [address] [place] [address] 34615 [employer] Network Engineer: Dewayne Faustin MD MCV (RBC) [Entitic vol] 88.0 fL Normal 80.0-100.0 [facility] Comment on above: Performed By: #### 1 92907, 2345195, 879728, 7082449, 750328, 299988, 655976, [id number] #### [facility] [address] [place] [address] 57652 [employer] Network Engineer: Dewayne Faustin MD MDW 20.38 High 13.98-20.00 [facility] Comment on above: Result Comment: MDW Interpretation: - For adults age 18-89 in ED, MDW >20.0 may be associated with a higher risk of Sepsis during the first 12 hours of hospital admission. - The predictive value of MDW for identifying Sepsis in patients with hematological abnormalities has not been established. - Interpret with caution when immature granulocytes, variant lymphs, or blast cells are noted on the differential. - Confirm patient age is within intended use population (18-89 years) for MDW. - For ED adults suspected of Sepsis, MDW less than or equal to 20.0 does not rule out Sepsis or the risk of Sepsis. Performed By: #### 1 95798, [id number], 771770, 9433747, 459093, 205863, 481729, [id number] #### [facility] [address] [place] [address] 44130 [employer] Network Engineer: Dewayne Faustin MD Nucleated RBC 0 /100WBC Normal [facility] Comment on above: Performed By: #### 1 93003, 1160520, 000799, 2976893, 191347, 320554, 115222, [id number] #### [facility] [id number] [place] [address] 44130 [employer] Network Engineer: Dewayne Faustin MD Platelet 316 x10 Normal 150-450 [facility] Comment on above: Performed By: #### 1 70209, 7762140, 976151, 1511769, 487936, 705991, 261143, [id number] #### [facility] [address] [place] [address] [employer] Network Engineer: Dewayne Faustin MD Platelet mean volume (Bld) [Entitic vol] 7.4 fL Normal 7.4-10.4 [facility] Comment on above: Performed By: #### 1 08122, 0216755, 532537, 9170958, 181441, 653859, 516006, [id number] #### [facility] [address] [place] [address] [employer] Network Engineer: Dewayne Faustin MD RBC 4.60 x10 Normal 4.20-5.40 [facility] Comment on above: Result Comment: Note : RBC morphology is normal unless otherwise stated. Evaluation performed only if differential is requested. Performed By: #### 1 03007, 0064360, 074709, 6388467, 454773, 992909, 959230, [id number] #### [facility] [address] [place] [address] [employer] Network Engineer: Dewayne Faustin MD WBC 16.2 x10 High 4.5-11.0 [facility] Comment on above: Performed By: #### 1 09692, 2169343, 250349, 5677389, 191964, 592998, 596289, [id number] #### [facility] [address] [place] [address] [employer] Network Engineer: Dewayne Faustin MD Dragsaw Operator Detailson 2024 Dragsaw Operator Details Dragsaw Operator Details Entered On: 07/20/2024 23:13 EDT Performed On: 07/20/2024 23:13 EDT by Evangelina Truong RN Dragsaw Operator Details Transport Mode Order Detail EV : Bed Isolation Precautions RTF : Communication CONSTANT Order, 07/22/2024 08:00:00 EDT, Constant Order, Check PLT count on Day 2 after initiation of Heparin or Lovenox, Notify Physician if PLTs less than 100,000 Repeat PLT count every 3 days., Ordered Communication CONSTANT Order, 07/20/2024 16:41:00 EDT, Constant Order, For two blood glucose readings in 24 hours, of 200 or greater,, contact physician to advance sliding scale., Ordered Communication CONSTANT Order, 07/20/2024 16:41:00 EDT, Constant Order, STAT EKG for Chest Pain, STAT ABGs for Acute Respiratory Distress, STAT Potassium/Magnesium for any significant change in condition/rhythm, Ordered Communication CONSTANT Order, 07/20/2024 16:41:00 EDT, Constant Order, Current ACLS Provider may, Initiate [employer] Advanced Cardiac Life support Algorithm per patient code status, Ordered Notify Provider, 07/20/2024 16:41:00 EDT, Constant Order, Call physician treating blood glucose for any of the following:, Ordered Oxygen Therapy, 07/20/2024 16:41:00 EDT, Nasal Cannula, Constant Order, Dyspnea with Dx COPD, 2-5 L NC PRN (if pt has COPD, oxygen at 2 L NC), Ordered Consult Physician, 07/20/2024 13:45:00 EDT, TYLER DIAZ MD, right knee pain, Completed Level of Care Order, 07/20/2024 13:45:00 EDT, Medical Outpatient with Observation Services, JAIDA HERMAN MD, Ordered Transfer Care of Patient to Attending, 07/20/2024 13:45:00 EDT, Upon discharge from the ED, all continued medications and orders become the responsibility of the admitting/attending physician., Ordered Obtain Consent, 07/20/2024 10:04:00 EDT, Obtain Blood Transfusion Consent, 07/20/2024 10:04:00 EDT, Ordered Isolation Precaution Order Detail EV : NONE IV Order Detail - EV : Yes Oxygen Order Detail EV : No Order Detail EV : No Pacemaker Order Detail : 1 Dragsaw Operator Details Review Status : Reviewed, changes made Nurse Collects Blood Specimens : Evangelina Walker RN - 07/20/2024 23:13 EDT Normal [facility] Comment on above: Order Comment: Order entered secondary to admission Dragsaw Operator Details Dragsaw Operator Details Entered On: 07/20/2024 17:47 EDT Performed On: 07/20/2024 17:46 EDT by Louie Purvis RN Dragsaw Operator Details Transport Mode Order Detail EV : Ambulatory Isolation Precautions RTF : Communication CONSTANT Order, 07/22/2024 08:00:00 EDT, Constant Order, Check PLT count on Day 2 after initiation of Heparin or Lovenox, Notify Physician if PLTs less than 100,000 Repeat PLT count every 3 days., Ordered Communication CONSTANT Order, 07/20/2024 16:41:00 EDT, Constant Order, For two blood glucose readings in 24 hours, of 200 or greater,, contact physician to advance sliding scale., Ordered Communication CONSTANT Order, 07/20/2024 16:41:00 EDT, Constant Order, STAT EKG for Chest Pain, STAT ABGs for Acute Respiratory Distress, STAT Potassium/Magnesium for any significant change in condition/rhythm, Ordered Communication CONSTANT Order, 07/20/2024 16:41:00 EDT, Constant Order, Current ACLS Provider may, Initiate [employer] Advanced Cardiac Life support Algorithm per patient code status, Ordered Notify Provider, 07/20/2024 16:41:00 EDT, Constant Order, Call physician treating blood glucose for any of the following:, Ordered Oxygen Therapy, 07/20/2024 16:41:00 EDT, Nasal Cannula, Constant Order, Dyspnea with Dx COPD, 2-5 L NC PRN (if pt has COPD, oxygen at 2 L NC), Ordered Consult Physician, 07/20/2024 13:45:00 EDT, TYLER DIAZ MD, right knee pain, Ordered Level of Care Order, 07/20/2024 13:45:00 EDT, Medical Outpatient with Observation Services, JAIDA HERMAN MD, Ordered Transfer Care of Patient to Attending, 07/20/2024 13:45:00 EDT, Upon discharge from the ED, all continued medications and orders become the responsibility of the admitting/attending physician., Ordered Obtain Consent, 07/20/2024 10:04:00 EDT, Obtain Blood Transfusion Consent, 07/20/2024 10:04:00 EDT, Ordered Isolation Precaution Order Detail EV : NONE IV Order Detail - EV : No Oxygen Order Detail EV : No Order Detail EV : No Pacemaker Order Detail : 1 Dragsaw Operator Details Review Status : Initial Review Nurse Collects Blood Specimens : No Louie Purvis RN - 07/20/2024 17:46 EDT Normal [facility] Comment on above: Order Comment: Order entered secondary to admission POC Glucoseon 07-20-2024 Glucose [Mass/Vol] 188 mg/dL High 72-100 [facility] Comment on above: Performed By: #### 1 [id number] #### [facility] [address] [place] [address] 67477 [employer] Network Engineer: Dewayne Faustin MD Glucose [Mass/Vol] 189 mg/dL High 72-100 [facility] Comment on above: Performed By: #### 1 [id number], [id number], [id number] #### [facility] [address] [place] [address] 40281 [employer] Network Engineer: Dewayne Faustin MD PT INRon 07-20-2024 INR Coag (PPP) [Relative time] 1.0 {INR} Normal [facility] Comment on above: Result Comment: INR Reference Range: Normal reference range for INR on patients not on anticoagulant therapy: 0.9-1.1 General therapeutic range for patients on anticoagulant therapy: 2.0-3.5 Performed By: #### 6 [id number], [id number] #### [facility] [address] [place] [address] 03064 [employer] Network Engineer: Dewayne Faustin MD Protime Patient 11.1 seconds Normal 9.8-12.4 [facility] Comment on above: Performed By: #### 6 [id number], [id number] #### [facility] [address] [place] [address] 59652 [employer] Network Engineer: Dewayne Faustin MD SED RATEon 07-20-2024 Sed Rate Westergren 21 mm/hr Normal 0-30 [facility] Comment on above: Performed By: #### 6 [id number], [id number] #### [facility] [address] [place] [address] 34467 [employer] Network Engineer: Dewayne Faustin MD TROPONIN HS 0HRon 07-20-2024 Troponin HS 0 Hr 3 pg/mL Normal 3-34 [facility] Comment on above: Result Comment: Spec imens from some individuals with pathologically high gamma globulin levels may demonstrate depressed troponin values Performed By: #### 6 [id number], [id number] #### [facility] [address] [place] [address] 41877 [employer] Network Engineer: Dewayne Faustin MD TROPONIN HS 2HRon 07-20-2024 Delta Troponin 2 Hr 1 pg/mL Normal 0-14 [facility] Comment on above: Result Comment: The term acute myocardial infarction should be used when there is acute myocardial injury with clinical evidence of acute myocardial ischemia and the rise or fall of serial Troponin HS values (delta troponin) greater than or equal to 15 pg/mL with at least one Troponin HS value above the 99th percentile reference range Performed By: #### 6 [id number], [id number] #### [facility] [address] [place] [address] 59193 [employer] Network Engineer: Dewayne Faustin MD Troponin HS 2 Hr <3 Low 3-34 [facility] Comment on above: Result Comment: Spec imens from some individuals with pathologically high gamma globulin levels may demonstrate depressed troponin values Performed By: #### 6 [id number], [id number] #### [facility] [address] [place], [place] [id number] [employer] Network Engineer: Dewayne Faustin MD TROPONIN HS 6HRon 07-20-2024 Delta Troponin 6 Hr 0 pg/mL Normal 0-14 [facility] Comment on above: Result Comment: The term acute myocardial infarction should be used when there is acute myocardial injury with clinical evidence of acute myocardial ischemia and the rise or fall of serial Troponin HS values (delta troponin) greater than or equal to 15 pg/mL with at least one Troponin HS value above the 99th percentile reference range Performed By: #### 6 [id number], [id number] #### [facility] [address] [place] [address] 79764 [employer] Network Engineer: Dewayne Faustin MD Troponin HS 6 Hr <3 Low 3-34 [facility] Comment on above: Result Comment: Spec imens from some individuals with pathologically high gamma globulin levels may demonstrate depressed troponin values Performed By: #### 6 [id number], [id number] #### [facility] [address] [place] [address] 83658 [employer] Network Engineer: Dewayne Faustin MD UAon 07-20-2024 U MICRO Indicated Normal [facility] Comment on above: Performed By: #### 1 [id number] #### [facility] [address] [place] [address] 51999 [employer] Network Engineer: Dewayne Faustin MD Appearance, U Hazy Abnormal Clear [facility] Comment on above: Performed By: #### 1 [id number] #### [facility] [address] [place] [address] 93386 [employer] Network Engineer: Dewayne Faustin MD Bacteria, U Many Normal [facility] Comment on above: Performed By: #### 1 [id number] #### [facility] [address] [place], [place] [id number] [employer] Network Engineer: Dewayne Faustin MD Bilirubin, U Negative Normal Negative [facility] Comment on above: Result Comment: Bili cummins, U: Initial positive urine bilirubin results are not confirmed. Interfering substances may include elevated urobilinogen. Trace = 0.5-1.0 mg/dL Small = 2.0-4.0 mg/dL Moderate = 6.0-8.0 mg/dL Large = 10 mg/dl and greater Performed By: #### 1 [id number] #### [facility] [address] [place], [place] [address] [employer] Network Engineer: Dewayne Faustin MD Blood, U Negative Normal Negative [facility] Comment on above: Result Comment: Bloo d, U: Trace = 0.03-0.05 mg/dL Small = 0.06-0.1 mg/dL Moderate = 0.2-0.5 mg/dL Large = 1.0 mg/dL and greater Performed By: #### 1 [id number] #### [facility] [address] [place] [address] 32580 [employer] Network Engineer: Dewayne Faustin MD Color, U Light-Yellow Normal Yellow [facility] Comment on above: Performed By: #### 1 [id number] #### [facility] [address] [place] [address] 93721 [employer] Network Engineer: Dewayne Faustin MD Glucose Qual, U Negative Normal Negative [facility] Comment on above: Performed By: #### 1 [id number] #### [facility] [address] [place] [address] 20459 [employer] Network Engineer: Dewayne Faustin MD Hyaline Cast <1 Normal [facility] Comment on above: Performed By: #### 1 [id number] #### [facility] [address] [place] [address] 48368 [employer] Network Engineer: Dewayne Faustin MD Ketones, U Negative Normal Negative [facility] Comment on above: Performed By: #### 1 [id number] #### [facility] [address] [place] [address] 21441 [employer] Network Engineer: Dewayne Faustin MD Leukocyte Esterase, U 25 Matthew/ul Abnormal Negative [facility] Comment on above: Result Comment: Leuk ocyte Esterase, U: Trace = 25 Matthew/uL Small = 75 Matthew/uL Moderate = 250 Matthew/uL Large = 500 Matthew/uL and greater Performed By: #### 1 [id number] #### [facility] [address] [place] [address] 21272 [employer] Network Engineer: Dewayne Faustin MD Mucous, U Few Normal [facility] Comment on above: Performed By: #### 1 [id number] #### [facility] [address] [place] [address] 96078 [employer] Network Engineer: Dewayne Faustin MD Nitrite, U Negative Normal Negative [facility] Comment on above: Performed By: #### 1 [id number] #### [facility] [address] [place] [id number] [employer] Network Engineer: Dewayne Faustin MD pH, U 6.0 Normal 4.5-8.0 [facility] Comment on above: Performed By: #### 1 [id number] #### [facility] [address] [place] [id number] [employer] Network Engineer: Dewayne Faustin MD Protein, U Negative Normal Negative [facility] Comment on above: Performed By: #### 1 [id number] #### [facility] [address] [place] [address] [id number] [employer] Network Engineer: Dewayne Faustin MD RBC/HPF, U 1 #/HPF Normal 0-3 [facility] Comment on above: Performed By: #### 1 [id number] #### [facility] [address] [place] [address] 61117 [employer] Network Engineer: Dewayne Faustin MD Specific [place], U 1.014 Normal 1.001-1.035 [facility] Comment on above: Performed By: #### 1 [id number] #### [facility] [address] [place] [address] 75015 [employer] Network Engineer: Dewayne Faustin MD Squamous Epithelial Cells, U 2 #/HPF Normal [facility] Comment on above: Performed By: #### 1 [id number] #### [facility] [address] [place] [address] 99868 [employer] Network Engineer: Dewayne Faustin MD Urobilinogen Qual, U < 2 mg/dl Normal < 2 mg/dl [facility] Comment on above: Result Comment: Urob ilinogen, U: EU/dl and mg/dl are equivalent units. Performed By: #### 1 92730 #### [facility] [address] [place] [address] 96373 [employer] Network Engineer: Dewayne Faustin MD WBC/HPF, U 2 #/HPF Normal 0-5 [facility] Comment on above: Performed By: #### 1 [id number] #### [facility] [address] [place] [address] 49872 [employer] Network Engineer: Dewayne Faustin MD XR KNEE 4V AP/PA BOTH+LAT/ME R RTon 07-20-2024 XR KNEE 4V AP/PA BOTH+LAT/LIAN RT * * *Final Report* * * DATE OF EXAM: Jul 20 2024 9:11AM M2X [id number] - XR KNEE 4V AP/PA BOTH+LAT/LIAN RT / PROCEDURE REASON: Right knee pain, unspecified chronicity * * * * Physician Interpretation * * * * EXAMINATION: XR KNEE 4V AP/PA BOTH+LAT/LIAN RT HISTORY: acute right knee pain Right knee pain, unspecified chronicity . TECHNIQUE: XR KNEE 4V AP/PA BOTH+LAT/LIAN RT Laterality: RIGHT Number of different views (projections): 2 M: XB_1 COMPARISON: None RESULT/ IMPRESSION: Moderately advanced osteoarthritis with severe medial joint compartment narrowing and tricompartmental osteophytosis. No acute fracture or dislocation. No other significant abnormality. Technical Training Instructor: SANDEE Transcribe Date/Time: Jul 22 2024 8:37A Dictated by : CHIO RUANO MD This examination was interpreted and the report reviewed and electronically signed by: CHIO RUANO MD on Jul 22 2024 8:38AM EST [id number] Normal [facility] XR KNEE RIGHT 3 VIEWSon 07-04 XR KNEE RIGHT 3 VIEWS XR KNEE RIGHT 3 EWS CLINICAL STATEMENT: TRAUMA. TECHNOLOGIST NOTES: WHAT SYMPTOMS ARE YOU EXPERIENCING?; right knee pain COMPARISON: None FINDINGS: Tricompartmental osteoarthritic changes. No fracture or dislocation. No joint effusion. IMPRESSION: Osteoarthritis. No acute fracture or dislocation. Electronically signed by: Michi Hill MD 07/20/2024 03:35 PM EDT Technologist: LINDA OSORIO Dictated By: MICHI HILL MD Signed By: MICHI HILL MD Signed Out: 07/20/24 15:35:25 Normal [facility] ([facility]) LANDRYKVNG BROWN ([id number]) 1970 F Date Time Provider Department 07/07/24 [facility] During your visit today, we recorded the following information about you: Stephanie Storm, RN 07/07/2024 8:17 AM Signed NEUROSURGERY CARE COORDINATION [facility] NOTE Patient scheduled for Right L4/[address] Everett for Thursday 08/10 at [facility]. Task Messenger message sent to patient by this RN, to send Pre-Op Surgical Guide, see Task Messenger message for further details. No further action required by this RN at this time. TRINI Cohen, RN July 07, 2024 8:14 AM Allergies As of Date: 07/07/2024 Noted Allergy Reaction CODEINE 12/03/2008 10 - Anaphylaxis 14 - Other: See Comments ERYTHROMYCIN 07/20/2014 2 - Rash 7 - Swelling TORADOL (KETOROLAC) 07/20/2014 9 - Itching Comments: Given with Vicodin at the time of the reaction. VICODIN (HYDROCODONE-ACETAMINOP HE*07/20/2014 9 - Itching Comments: Given with Toradol at the time of the reaction. AMLODIPINE 01/23/2023 14 - Other: See Comments CEFDINIR 12/03/2008 14 - Other: See Comments COPAXONE (GLATIRAMER) 04/01/2023 12 - Shortness of Breath HYDROCODONE 12/03/2008 14 - Other: See Comments JARDIANCE (EMPAGLIFLOZIN) 04/01/2023 14 - Other: See Comments Comments: Chronic yeast infection PENICILLINS 07/20/2014 4 - Hives Date Reviewed: 09/11/2023 Reviewed by: Claudio Flores, RN - Fully Assessed Reason for Visit: Preparations For Surgery [898] Prescriptions as of 07/07/2024 - TRUE METRIX GLUCOSE TEST STRIP test strip use 1 TEST STRIP to TEST BLOOD SUGAR four times a day - TRUE METRIX GLUCOSE METER as directed. - TRUEPLUS LANCETS 30 gauge use 1 LANCET to TEST BLOOD SUGAR four times a day - LORazepam (ATIVAN) 1 mg tablet Take 1 tablet by mouth every 12 hours. - cholecalciferol (VITAMIN D3) 1,000 unit tab tablet Take 1 tablet by mouth every afternoon. - tiZANidine (ZANAFLEX) 4 mg tablet - levothyroxine (SYNTHROID) 150 mcg tablet Take 1 tablet by mouth every afternoon. - insulin lispro (HUMALOG KWIKPEN) 100 unit/mL inject 10 units subcutaneously three times a day - aspirin, enteric coated (ASPIRIN, ENTERIC COATED) 81 mg EC tablet Take 81 mg by mouth once daily. - omega-3 fatty acids/fish oil (FISH OIL-OMEGA-3 FATTY ACIDS) 300-1,000 mg cap Take by mouth. - Multivitamins-Minerals- Lutein (MULTIVITAMIN 50 PLUS) tab Take 1 tablet by mouth once daily. - Ascorbic Acid (VITAMIN C) 1,000 mg tablet Take 1,000 mg by mouth once daily. - diroximel fumarate (VUMERITY) 231 mg capsule, delayed release Take 462 mg by mouth two times a day. - hydroCHLOROthiazide 25 mg tablet Take 25 mg by mouth once daily. - rosuvastatin (CRESTOR) 5 mg tablet Take 5 mg by mouth once daily. - metoprolol succinate ER (TOPROL XL) 50 mg 24 hr tablet Take 50 mg by mouth two times a day. - insulin glargine (LANTUS SOLOSTAR U-100 INSULIN) 100 unit/mL (3 mL) Inject subcutaneously. - gabapentin (NEURONTIN) 300 mg capsule Take 400 mg by mouth three times a day as needed (nerve pain). - losartan (COZAAR) 50 mg tablet Take 50 mg by mouth two times a day. - acetaminophen (TYLENOL) 500 mg tablet Take 1 tablet by mouth every 6 hours as needed. 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*03/19/2017 Spondylolisthesis of lumbar region [M43.16] 03/19/2017 Abnormal electrocardiography [R94.31] 07/17/2023 Diagnosed: 07/17/2023 Candidiasis of vagina [B37.31] 07/17/2023 07/18/2023 Diagnosed: 07/17/2023 Spondylosis of cervical spine [M47.812] 03/09/2022 Diagnosed: 07/17/2023 Chest pain [R07.9] 07/17/2023 Diagnosed: 07/17/2023 Diabetes mellitus (HCC) [E11.9] 01/21/2023 Diagnosed: 07/17/2023 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/2023 Diagnosed: 07/17/2023 Dyspnea on exertion [R06.09] 07/17/2023 Diagnosed: 07/17/2023 Fatigue [R53.83] 11/15/2022 Diagnosed: 07/17/2023 History of cardiac catheterization [Z98.890] 07/30/2018 Diagnosed: 07/17/2023 Hyperlipidemia [E78.5] 01/21/2023 Diagnosed: 07/17/2023 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 Normal [facility] CT CARDIAC SCORING WO IV CON TRASTon 06-20-2024 CT CARDIAC SCORING WO IV CONTRAST Interpreted By: Ricmhond Baum, STUDY: CT CARDIAC SCORING WO IV CONTRAST; 06/20/2024 10:40 am INDICATION: Signs/Symptoms:breath. COMPARISON: None. ACCESSION NUMBER(S): [id number] ORDERING CLINICIAN: INTERFACE UNSPECIFIELDPROVIDER TECHNIQUE: Using prospective ECG gating, limited CT scan of the chest for evaluation of coronary arteries was performed without intravenous contrast. Coronary calcium scoring was performed according to the method of Agatston. FINDINGS: The score and distribution of calcium in the coronary arteries is as follows: LM: 0. LAD: 8.9. LCx: 3.7. RCA: 17.8. Total: 30.4. The visualized segments of the lungs are normally expanded. Focal ground-glass infiltrative opacities left upper lobe perihilar region partially imaged. Patchy bibasilar infiltrates/atelectasis partially imaged. Mild diffuse bronchial wall thickening. The visualized mid/lower ascending thoracic aorta measures 3.7 cm in diameter. Mild vascular calcifications. The heart is mildly enlarged. No significant pericardial effusion is present. Partially imaged pacer wires entering the heart. No gross evidence of mediastinal or hilar lymphadenopathy is identified. Visualized stomach distended with ingested contents. IMPRESSION: 1. Coronary artery calcium score of 30.4*. 2. Focal ground-glass infiltrative opacities left upper lobe perihilar region partially imaged, could be sequela of infectious/inflammatory process among other etiologies. Partially imaged patchy bibasilar infiltrates/atelectasis elsewhere. Clinical correlation and follow-up advised. Consider dedicated complete CT chest for further assessment. 3. Additional findings as above. *Coronary artery calcium scoring may be helpful in predicting the risk for future coronary heart disease events. According to the [employer] Clinical Expert Consensus Task Force, such testing provides important prognostic information in patients with more than one coronary heart disease risk factor. The coronary artery calcium score correlates with the annual risk of a non-fatal myocardial infarction or coronary heart disease . Coronary artery score Annual Risk 0-99 0.4% 100-399 1.3% >400 2.4% These three breakpoints correspond to lower, intermediate and high risk states for future coronary events. Such information should be used, along with appropriate clinical judgment, to make decisions regarding the intensity of risk factor management strategies to treat blood lipids and to modify other non-lipid coronary risk factors. Reference: Thee P et al. Circulation. 2007; 115:402-426 MACRO: None Signed by: Richmond Baum 06/24/2024 10:58 AM Dictation workstation: [id number] [facility] Benigno 05-19-2024 [facility] Telephone ([facility]) KVNG LANDRY ([id number]) 1970 F Date Time Provider Department 05/19/24 [facility] During your visit today, we recorded the following information about you: Stephanie Storm, RN 05/19/2024 3:26 PM Signed NEUROSURGERY CARE COORDINATION [facility] SURGERY SCHEDULING ? See Task Messenger message encounter dated yester05/18. Called patient at home/mobile phone number, verified name and . Spoke with patient. Discussed surgery scheduling process. Patient Kvng Landry accepts surgery date of SaturdayAugust [address] Everett at [facility]. Planned procedure is Right L4/5 MIS Decompression. Discussed need for both medical clearance and financial clearance prior to scheduled surgery and discussed process of both. ? PAT will be completed at [facility]; informed message will be sent to restaurant front manager staff shortly to call patient in order to assist with scheduling this appointment, this RN to f/u with this, PACC questionnaire completed. ? Medications reviewed: Yes. Medications to be stopped prior to surgery: NSAIDS and vitamins and supplements to be stopped for 7 days prior to scheduled surgery. ? Additional pre-op clearances needed: per [facility] provider recommendations. ? Any implanted devices: No. ? Transplant History: No. ? Patient will require optimization lab work: per [facility] provider recommendations. ? Questions answered. Patient verbalizes understanding via teach back. ? Additional comments: Discussed need for PACC appointment prior to scheduled surgery and discussed process of this, see above, pre-op COVID test not needed d/t current [facility] policy stating no longer needed prior to surgery. Informed Pre-/Post-Op Education materials will be mailed to patient and informed that this RN will call patient closer to DOS in order to provide education over telephone, patient to purchase Hibiclens soap or patient to scrap picker both Hibiclens soap and CHG wipes at restaurant front manager of this office. Pre-Op Elizabeth Educational video to be ordered. Discussed recommended but optional trek for surgical success class and provided information sheet. All questions answered, states understanding, instructed to contact office as needed. Staff message to be sent to Dr. Everett's Event Operations Manager shortly in order to notify of scheduled surgery. This RN to f/u with this. No further action required by this RN at this time. TRINI Cohen, RN May 19, 2024 3:24 PM Stephanie Storm RN 05/20/2024 1:10 PM Signed NEUROSURGERY CARE COORDINATION [facility] SURGERY SCHEDULING Spine Surgery Pre-/Post-Op Instructions, Skin Preparation AND NPO Instructions including Hibiclens AND CHG wipes, Map of [facility] 1st Floor, Pain Management After Spine Surgery, Smoking AND Spine Surgery, Nearby Accommodations List, Preparing for Post-Acute Care Instructions, About Advance Directives handout, and trek for surgical success class handout placed in envelope with patient mail label and envelope placed in outgoing mailbox at restaurant front manager of this office. TRINI Cohen, RN May 20, 2024 1:08 PM Allergies As of Date: 05/19/2024 Noted Allergy Reaction CODEINE 12/03/2008 10 - Anaphylaxis 14 - Other: See Comments ERYTHROMYCIN 07/20/2014 2 - Rash 7 - Swelling TORADOL (KETOROLAC) 07/20/2014 9 - Itching Comments: Given with Vicodin at the time of the reaction. VICODIN (HYDROCODONE-ACETAMINOP HE*07/20/2014 9 - Itching Comments: Given with Toradol at the time of the reaction. AMLODIPINE 01/23/2023 14 - Other: See Comments CEFDINIR 12/03/2008 14 - Other: See Comments COPAXONE (GLATIRAMER) 04/01/2023 12 - Shortness of Breath HYDROCODONE 12/03/2008 14 - Other: See Comments JARDIANCE (EMPAGLIFLOZIN) 04/01/2023 14 - Other: See Comments Comments: Chronic yeast infection PENICILLINS 07/20/2014 4 - Hives Date Reviewed: 09/11/2023 Reviewed by: Claudio Flores, RN - Fully Assessed Reason for Visit: Schedule Surgery [1330] Prescriptions as of 05/20/2024 - TRUE METRIX GLUCOSE TEST STRIP test strip use 1 TEST STRIP to TEST BLOOD SUGAR four times a day - TRUE METRIX GLUCOSE METER as directed. - TRUEPLUS LANCETS 30 gauge use 1 LANCET to TEST BLOOD SUGAR four times a day - LORazepam (ATIVAN) 1 mg tablet Take 1 tablet by mouth every 12 hours. - cholecalciferol (VITAMIN D3) 1,000 unit tab tablet Take 1 tablet by mouth every afternoon. - tiZANidine (ZANAFLEX) 4 mg tablet - levothyroxine (SYNTHROID) 150 mcg tablet Take 1 tablet by mouth every afternoon. - insulin lispro (HUMALOG KWIKPEN) 100 unit/mL inject 10 units subcutaneously three times a day - aspirin, enteric coated (ASPIRIN, ENTERIC COATED) 81 mg EC tablet Take 81 mg by mouth once daily. - omega-3 fatty acids/fish oil (FISH OIL-OMEGA-3 FATTY ACIDS) 300-1,000 mg cap Take by mouth. - Multivitamins-Minerals- Lutein (MULTIVITAMIN 5 (more content not included)... Normal [facility] Endocrinology Visit Reporton 05-18-2024 Endocrinology Visit Report [facility] [address] [place] [address] OFFICE VISIT Date of Service: 05/18/24 MR#: [id number] Acct: [id number] Name: KVNG LANDRY LEXI Rep #: [id number] 1 : 1970 Provider: MIGUEL terrell Age/Sex: 53/F Location: [facility] Status: Signed Intake Vital Signs 01/01/24 14:35 03/16/24 13:58 04/15/24 13:22 04/17/24 14:39 05/18/24 13:09 Height 5 ft 1 in 5 ft 1 in 5 ft 1 in 5 ft 1 in 5 ft 1 in Weight: 255 lb 4 oz BMI 48.2 BP 142/83 H Blood Pressure Location Rt brachial Position Sitting Pulse 64 Pulse Source Monitor Pulse Oximetry (%) 95 Oxygen Delivery Method room air Intake Visit Reasons: 3 M FU R/S 04/01 Chief Complaint: f/u diabetes and hypothyroidism Is patient in pain?: Yes Allergies glatiramer (copolymer 1) (From Copaxone) Allergy (Severe, Verified 04/15/24 13:22) hypotension, shaking, irregular breathing empagliflozin (From Jardiance) Allergy (Intermediate, Verified 05/18/24 13:17) yeast infection codeine Allergy (Verified 04/15/24 13:22) Anaphylaxis Penicillins Allergy (Verified 04/15/24 13:22) rash amlodipine Adverse Reaction (Intermediate, Verified 04/15/24 13:22) Swelling in shins and ankles ached erythromycin base (From Erythrocin) Adverse Reaction (Verified 04/15/24 13:22) Unknown hydrocodone (From Vicodin) Adverse Reaction (Verified 04/15/24 13:22) syncope ketorolac (From Toradol) Adverse Reaction (Verified 04/15/24 13:22) anxious Medications ???Medication ???Instructions ???Recorded ???Confirmed ???Type tizanidine 4 mg capsule 4 mg PO QHS muscle spasms 01/16/21 05/18/24 History diroximel fumarate 231 mg 231 mg PO BID 01/21/23 05/18/24 History capsule,delayed release (Vumerity) lancing device with lancets kit #1 ea 03/11/23 04/15/24 Rx (Accu-Chek FastClix Lancing Device kit) blood sugar diagnostic (Accu-Chek #150 ea 07/08/23 04/15/24 Rx Guide test strips) blood-glucose meter (Accu-Chek #1 ea 07/08/23 04/15/24 Rx Guide Glucose Meter) lancets (Accu-Chek Fastclix Lancet #200 ea 07/08/23 04/15/24 Rx Drum) aspirin 81 mg tablet,delayed 81 mg PO DAILY 07/12/23 05/18/24 History release (Adult Low Dose Aspirin) hydrochlorothiazide 25 mg tablet 25 mg PO DAILY this is a dose 11/22/23 05/18/24 Rx increase #90 tabs losartan 50 mg tablet 50 mg PO BID #180 tabs 11/22/23 05/18/24 Rx rosuvastatin 5 mg tablet 5 mg PO DAILY #90 tabs 11/22/23 05/18/24 Rx levothyroxine 150 mcg tablet 150 mcg PO DAILY thyroid #90 tabs 12/23/23 05/18/24 Rx diclofenac sodium 50 mg 50 mg PO TID 01/01/24 05/18/24 History tablet,delayed release gabapentin 400 mg capsule 400 mg PO BID 01/01/24 05/18/24 History semaglutide 0.25 mg or 0.5 mg (2 0.5 mg (0.736 mL) subcut QWEEK #3 01/01/24 05/18/24 Rx mg/3 mL) subcutaneous pen injector mL (Ozempic) insulin glargine 100 unit/mL (3 28 unit (0.28 mL) subcut QAM #30 mL 02/27/24 05/18/24 Rx mL) subcutaneous pen (Lantus Solostar U-100 Insulin) cholecalciferol (vitamin D3) 1,250 1,250 mcg PO QWEEK #12 caps 04/22/24 05/18/24 Rx mcg (50,000 unit) capsule carvedilol 12.5 mg tablet (Coreg) 12.5 mg PO BID #60 tabs 05/01/24 05/18/24 Rx insulin lispro 100 unit/mL 15 unit (0.15 mL) subcut TID #40.5 05/11/24 05/18/24 Rx subcutaneous pen (Humalog KwikPen mL (U-100) Insulin) blood-glucose sensor (FreeStyle #2 ea 05/18/24 05/18/24 Rx Luis Miguel 3 Sensor device) cholecalciferol (vitamin D3) 25 50 mcg PO DAILY 05/18/24 05/18/24 History mcg (1,000 unit) capsule modafinil 200 mg tablet 200 mg PO QDAY 05/18/24 05/18/24 History sertraline 50 mg tablet 50 mg PO QDAY 05/18/24 05/18/24 History PFSH Medical History Edema of both upper extremities Lupus (systemic lupus erythematosus) Nonsustained monomorphic ventricular tachycardia Pacemaker lead malfunction Coronary-myocardial bridge Obesity Anxiety Thyroid disease Rheumatoid arthritis Anemia Easy bruising Excessive bleeding Migraine headache Back pain Hx of vertigo Multiple sclerosis Dietary restriction Former smoker Shortness of breath on exertion History of pain when walking History of edema Cardiology follow-up encounter Mobitz type 2 second degree AV block Arthritis Seasonal allergies Coronary-myocardial bridge Abnormal electrocardiogram Vitamin D deficiency Hypothyroidism Essential (primary) hypertension Spinal stenosis Uncontrolled diabetes mellitus with microalbuminuria Type 2 diabetes mellitus Cervicalgia Hyperlipidemia Insomnia Right bundle branch block (RBBB) Surgical History History of permanent cardiac pacemaker placement (02/06/21) History of cardiac ca (more content not included)... Normal [facility] Anti-dsDNA Abon 04-20-2024 ANTI-DNA (DS)AB <1 Normal 0-9 [facility] Comment on above: Order Comment: DR.AN SHAH ORDER- CMP,LIPID,TSH,T4FDR.JUDD ORDERED-ESR,CRP,ALT,AST,CRE,GFR,BUN,CBCD,C3,C4,DNA,UA, Result Comment: Nega tive <5 Equivocal 5 - 9 Positive >9 Performed at: [address] [id number] Basket Bottom Machine Operator: Pop Rios PhD, Phone: [phone] Performed By: #### L 500.2500, L100.0100 #### [facility] [address] [place], [address] Complement C3on 04-20-2024 COMP C3 163 mg/dL Normal 82-167 [facility] Comment on above: Order Comment: DR.AN SHAH ORDER- CMP,LIPID,TSH,T4FDR.JUDD ORDERED-ESR,CRP,ALT,AST,CRE,GFR,BUN,CBCD,C3,C4,DNA,UA Result Comment: Perf ormed at: [address] [id number] Basket Bottom Machine Operator: Pop Rios PhD, Phone: [phone] Performed By: #### L 500.2500, L100.0100 #### [facility] [address] [place], [place], [id number] Complement C4on 04-20-2024 COMPLEMENT, C4 25 mg/dL Normal 12-38 [facility] Comment on above: Order Comment: DR.AN SHAH ORDER- CMP,LIPID,TSH,T4FDR.JUDD ORDERED-ESR,CRP,ALT,AST,CRE,GFR,BUN,CBCD,C3,C4,DNA,UA Performed By: #### L 500.2500, L100.0100 #### [facility] [address] [place], [address] CBC W/Diff, Automatedon 12-2023 Absolute Lymph 1.22 X10 3/uL Normal 0.83-4.51 [facility] Comment on above: Order Comment: DR.AN SHAH ORDER- CMP,LIPID,TSH,T4F ORDERED- ESR,CRP,ALT,AST,CRE,GFR,BUN,CBCD,C3,C4,DNA,UA,CUUR Performed By: #### L 501.6710, L501.9520, L3100.5500, L100.0100, L500.4050, L500.4100, L3100.5800, L3100.5700, L506.0400, L400.0001, L101.9900 #### [facility] [address] [place], [address] Absolute Neut 5.4 X10 3/uL Normal 2.0-7.7 [facility] Comment on above: Order Comment: DR.AN SHAH ORDER- CMP,LIPID,TSH,T4F ORDERED- ESR,CRP,ALT,AST,CRE,GFR,BUN,CBCD,C3,C4,DNA,UA,CUUR Performed By: #### L 501.6710, L501.9520, L3100.5500, L100.0100, L500.4050, L500.4100, L3100.5800, L3100.5700, L506.0400, L400.0001, L101.9900 #### [facility] [address] [place], [address] Basophils/100 WBC (Bld) 0.8 % Normal 0-1 [facility] Comment on above: Order Comment: DR.AN SHAH ORDER- CMP,LIPID,TSH,T4F ORDERED- ESR,CRP,ALT,AST,CRE,GFR,BUN,CBCD,C3,C4,DNA,UA,CUUR Performed By: #### L 501.6710, L501.9520, L3100.5500, L100.0100, L500.4050, L500.4100, L3100.5800, L3100.5700, L506.0400, L400.0001, L101.9900 #### [facility] [address] [place], [address] Eosinophils/100 WBC (Bld) 4.7 % Normal 0-5 [facility] Comment on above: Order Comment: DR.AN SHAH ORDER- CMP,LIPID,TSH,T4F ORDERED- ESR,CRP,ALT,AST,CRE,GFR,BUN,CBCD,C3,C4,DNA,UA,CUUR Performed By: #### L 501.6710, L501.9520, L3100.5500, L100.0100, L500.4050, L500.4100, L3100.5800, L3100.5700, L506.0400, L400.0001, L101.9900 #### [facility] [address] [place], [address] Erythrocyte distribution width (RBC) [Ratio] 12.4 % Normal 11.6-14.6 [facility] Comment on above: Order Comment: DR.AN SHAH ORDER- CMP,LIPID,TSH,T4F ORDERED- ESR,CRP,ALT,AST,CRE,GFR,BUN,CBCD,C3,C4,DNA,UA,CUUR Performed By: #### L 501.6710, L501.9520, L3100.5500, L100.0100, L500.4050, L500.4100, L3100.5800, L3100.5700, L506.0400, L400.0001, L101.9900 #### [facility] [address] [place], [address] Hematocrit (Bld) [Volume fraction] 40.3 % Normal 37-47 [facility] Comment on above: Order Comment: DR.AN SHAH ORDER- CMP,LIPID,TSH,T4F ORDERED- ESR,CRP,ALT,AST,CRE,GFR,BUN,CBCD,C3,C4,DNA,UA,CUUR Performed By: #### L 501.6710, L501.9520, L3100.5500, L100.0100, L500.4050, L500.4100, L3100.5800, L3100.5700, L506.0400, L400.0001, L101.9900 #### [facility] [address] [place], [address] Hemoglobin (Bld) [Mass/Vol] 13.4 g/dL Normal 12.0-15.0 [facility] Comment on above: Order Comment: DR.AN SHAH ORDER- CMP,LIPID,TSH,T4F ORDERED- ESR,CRP,ALT,AST,CRE,GFR,BUN,CBCD,C3,C4,DNA,UA,CUUR Performed By: #### L 501.6710, L501.9520, L3100.5500, L100.0100, L500.4050, L500.4100, L3100.5800, L3100.5700, L506.0400, L400.0001, L101.9900 #### [facility] [address] [place], [place], [id number] (984) IG% 0.400 Normal 0.0-0.9 [facility] Comment on above: Order Comment: DR.AN SHAH ORDER- CMP,LIPID,TSH,T4F ORDERED- ESR,CRP,ALT,AST,CRE,GFR,BUN,CBCD,C3,C4,DNA,UA,CUUR Result Comment: IG% - Immature Granulocytes (promyelocytes, myelocytes and metamyelocytes) > 1% indicates that a LEFT SHIFT is Present. Performed By: #### L 501.6710, L501.9520, L3100.5500, L100.0100, L500.4050, L500.4100, L3100.5800, L3100.5700, L506.0400, L400.0001, L101.9900 #### [facility] [address] [place], [address] Lymphocytes/100 WBC (Bld) 16.1 % Low 19-41 [facility] Comment on above: Order Comment: DR.AN SHAH ORDER- CMP,LIPID,TSH,T4F ORDERED- ESR,CRP,ALT,AST,CRE,GFR,BUN,CBCD,C3,C4,DNA,UA,CUUR Performed By: #### L 501.6710, L501.9520, L3100.5500, L100.0100, L500.4050, L500.4100, L3100.5800, L3100.5700, L506.0400, L400.0001, L101.9900 #### [facility] [address] [facility] [place], [address] MCH (RBC) [Entitic mass] 29.7 pg Normal 27.0-32.0 [facility] Comment on above: Order Comment: DR.AN SHAH ORDER- CMP,LIPID,TSH,T4F ORDERED- ESR,CRP,ALT,AST,CRE,GFR,BUN,CBCD,C3,C4,DNA,UA,CUUR Performed By: #### L 501.6710, L501.9520, L3100.5500, L100.0100, L500.4050, L500.4100, L3100.5800, L3100.5700, L506.0400, L400.0001, L101.9900 #### [facility] [address] [facility] [place], [address] MCHC (RBC) [Mass/Vol] 33.3 g/dL Normal 32-36 [facility] Comment on above: Order Comment: DR.AN SHAH ORDER- CMP,LIPID,TSH,T4F ORDERED- ESR,CRP,ALT,AST,CRE,GFR,BUN,CBCD,C3,C4,DNA,UA,CUUR Performed By: #### L 501.6710, L501.9520, L3100.5500, L100.0100, L500.4050, L500.4100, L3100.5800, L3100.5700, L506.0400, L400.0001, L101.9900 #### [facility] [address] [place], [address] MCV (RBC) [Entitic vol] 89.4 fL Normal 81-99 [facility] Comment on above: Order Comment: DR.AN SHAH ORDER- CMP,LIPID,TSH,T4F ORDERED- ESR,CRP,ALT,AST,CRE,GFR,BUN,CBCD,C3,C4,DNA,UA,CUUR Performed By: #### L 501.6710, L501.9520, L3100.5500, L100.0100, L500.4050, L500.4100, L3100.5800, L3100.5700, L506.0400, L400.0001, L101.9900 #### [facility] [address] [place] [place], [address] Monocytes/100 WBC (Bld) 6.5 % Normal 0-10 [facility] Comment on above: Order Comment: DR.AN SHAH ORDER- CMP,LIPID,TSH,T4F ORDERED- ESR,CRP,ALT,AST,CRE,GFR,BUN,CBCD,C3,C4,DNA,UA,CUUR Performed By: #### L 501.6710, L501.9520, L3100.5500, L100.0100, L500.4050, L500.4100, L3100.5800, L3100.5700, L506.0400, L400.0001, L101.9900 #### [facility] [address] [place], [address] Neutrophils/100 WBC (Bld) 71.5 % High 47-70 [facility] Comment on above: Order Comment: DR.AN SHAH ORDER- CMP,LIPID,TSH,T4F ORDERED- ESR,CRP,ALT,AST,CRE,GFR,BUN,CBCD,C3,C4,DNA,UA,CUUR Performed By: #### L 501.6710, L501.9520, L3100.5500, L100.0100, L500.4050, L500.4100, L3100.5800, L3100.5700, L506.0400, L400.0001, L101.9900 #### [facility] [address] [place], [address] Nucleated RBC (Bld) [#/Vol] 0 10*3/uL Normal 0-5 [facility] Comment on above: Order Comment: DR.AN SHAH ORDER- CMP,LIPID,TSH,T4F ORDERED- ESR,CRP,ALT,AST,CRE,GFR,BUN,CBCD,C3,C4,DNA,UA,CUUR Performed By: #### L 501.6710, L501.9520, L3100.5500, L100.0100, L500.4050, L500.4100, L3100.5800, L3100.5700, L506.0400, L400.0001, L101.9900 #### [facility] [address] [place], [address] Platelet mean volume (Bld) [Entitic vol] 9.6 fL Normal 6.2-12.0 [facility] Comment on above: Order Comment: DR.AN SHAH ORDER- CMP,LIPID,TSH,T4F ORDERED- ESR,CRP,ALT,AST,CRE,GFR,BUN,CBCD,C3,C4,DNA,UA,CUUR Performed By: #### L 501.6710, L501.9520, L3100.5500, L100.0100, L500.4050, L500.4100, L3100.5800, L3100.5700, L506.0400, L400.0001, L101.9900 #### [facility] [address] [place], [address] Platelets (Bld) [#/Vol] 334 10*3/uL Normal 150-450 [facility] Comment on above: Order Comment: DR.AN SHAH ORDER- CMP,LIPID,TSH,T4F ORDERED- ESR,CRP,ALT,AST,CRE,GFR,BUN,CBCD,C3,C4,DNA,UA,CUUR Performed By: #### L 501.6710, L501.9520, L3100.5500, L100.0100, L500.4050, L500.4100, L3100.5800, L3100.5700, L506.0400, L400.0001, L101.9900 #### [facility] [address] [place], [address] RBC (Bld) [#/Vol] 4.51 10*6/uL Normal 4.2-5.4 [facility] Comment on above: Order Comment: DR.AN SHAH ORDER- CMP,LIPID,TSH,T4F ORDERED- ESR,CRP,ALT,AST,CRE,GFR,BUN,CBCD,C3,C4,DNA,UA,CUUR Performed By: #### L 501.6710, L501.9520, L3100.5500, L100.0100, L500.4050, L500.4100, L3100.5800, L3100.5700, L506.0400, L400.0001, L101.9900 #### [facility] [address] [place], [address] RDW SD 40.6 fl Normal 35.1-43.9 [facility] Comment on above: Order Comment: DR.AN SHAH ORDER- CMP,LIPID,TSH,T4F ORDERED- ESR,CRP,ALT,AST,CRE,GFR,BUN,CBCD,C3,C4,DNA,UA,CUUR Performed By: #### L 501.6710, L501.9520, L3100.5500, L100.0100, L500.4050, L500.4100, L3100.5800, L3100.5700, L506.0400, L400.0001, L101.9900 #### [facility] [address] [place], [address] WBC (Bld) [#/Vol] 7.6 10*3/uL Normal 4.4-11.0 [facility] Comment on above: Order Comment: DR.AN SHAH ORDER- CMP,LIPID,TSH,T4F ORDERED- ESR,CRP,ALT,AST,CRE,GFR,BUN,CBCD,C3,C4,DNA,UA,CUUR Performed By: #### L 501.6710, L501.9520, L3100.5500, L100.0100, L500.4050, L500.4100, L3100.5800, L3100.5700, L506.0400, L400.0001, L101.9900 #### [facility] [address] [place], [address] CRPon 04-15-2024 C-REACTIVE PROT 14.70 mg/L High 0.0-3.0 [facility] Comment on above: Order Comment: DR.AN SHAH ORDER- CMP,LIPID,TSH,T4F ORDERED- ESR,CRP,ALT,AST,CRE,GFR,BUN,CBCD,C3,C4,DNA,UA Result Comment: C-Re active Protein (CRP) provides useful information for the diagnosis, therapy and monitoring of inflammatory processes and associated diseases. For the evaluation of Relative Risk for Cardiovascular Disease, a High Sensitivity CRP (HSCRP) should be ordered. Performed By: #### L 501.6710, L501.9520, L3100.5500, L100.0100, L500.4050, L500.4100, L3100.5800, L3100.5700, L506.0400, L400.0001, L101.9900 #### [facility] [address] [place], [address] Comprehensive Metabolic Prof ilon 04-15-2024 Albumin [Mass/Vol] 3.5 g/dL Normal 3.2-5.0 [facility] Comment on above: Order Comment: DR.AN SHAH ORDER- CMP,LIPID,TSH,T4F ORDERED- ESR,CRP,ALT,AST,CRE,GFR,BUN,CBCD,C3,C4,DNA,UA Performed By: #### L 501.6710, L501.9520, L3100.5500, L100.0100, L500.4050, L500.4100, L3100.5800, L3100.5700, L506.0400, L400.0001, L101.9900 #### [facility] [address] [place], [address] Albumin/Globulin [Mass ratio] 0.9 {ratio} Normal 0.9-2.4 [facility] Comment on above: Order Comment: DR.AN SHAH ORDER- CMP,LIPID,TSH,T4F ORDERED- ESR,CRP,ALT,AST,CRE,GFR,BUN,CBCD,C3,C4,DNA,UA Performed By: #### L 501.6710, L501.9520, L3100.5500, L100.0100, L500.4050, L500.4100, L3100.5800, L3100.5700, L506.0400, L400.0001, L101.9900 #### [facility] [address] [place], [address] ALK P 82 U/L Normal 45-117 [facility] Comment on above: Order Comment: DR.AN SHAH ORDER- CMP,LIPID,TSH,T4F ORDERED- ESR,CRP,ALT,AST,CRE,GFR,BUN,CBCD,C3,C4,DNA,UA Performed By: #### L 501.6710, L501.9520, L3100.5500, L100.0100, L500.4050, L500.4100, L3100.5800, L3100.5700, L506.0400, L400.0001, L101.9900 #### [facility] [address] [place], [address] ALT [Catalytic activity/Vol] 29 U/L Normal 13-56 [facility] Comment on above: Order Comment: DR.AN SHAH ORDER- CMP,LIPID,TSH,T4F ORDERED- ESR,CRP,ALT,AST,CRE,GFR,BUN,CBCD,C3,C4,DNA,UA Performed By: #### L 501.6710, L501.9520, L3100.5500, L100.0100, L500.4050, L500.4100, L3100.5800, L3100.5700, L506.0400, L400.0001, L101.9900 #### [facility] [address] [facility] [place], [place], [id number] (218) AST [Catalytic activity/Vol] 20 U/L Normal 15-37 [facility] Comment on above: Order Comment: DR.AN SHAH ORDER- CMP,LIPID,TSH,T4F ORDERED- ESR,CRP,ALT,AST,CRE,GFR,BUN,CBCD,C3,C4,DNA,UA Performed By: #### L 501.6710, L501.9520, L3100.5500, L100.0100, L500.4050, L500.4100, L3100.5800, L3100.5700, L506.0400, L400.0001, L101.9900 #### [facility] [address] [place], [address] Bilirubin [Mass/Vol] 0.60 mg/dL Normal 0.20-1.00 [facility] Comment on above: Order Comment: DR.AN SHAH ORDER- CMP,LIPID,TSH,T4F ORDERED- ESR,CRP,ALT,AST,CRE,GFR,BUN,CBCD,C3,C4,DNA,UA Result Comment: For patients on eltrombopag therapy, use of Dimension [place] TBIL is not recommended. Performed By: #### L 501.6710, L501.9520, L3100.5500, L100.0100, L500.4050, L500.4100, L3100.5800, L3100.5700, L506.0400, L400.0001, L101.9900 #### [facility] [address] [place], [place], [id number] BUN/CRE 14.7 RATIO Normal 10-20 [facility] Comment on above: Order Comment: DR.AN SHAH ORDER- CMP,LIPID,TSH,T4F ORDERED- ESR,CRP,ALT,AST,CRE,GFR,BUN,CBCD,C3,C4,DNA,UA Performed By: #### L 501.6710, L501.9520, L3100.5500, L100.0100, L500.4050, L500.4100, L3100.5800, L3100.5700, L506.0400, L400.0001, L101.9900 #### [facility] [address] [place], [address] CA,Total 9.0 mg/dL Normal 8.5-10.1 [facility] Comment on above: Order Comment: DR.AN SHAH ORDER- CMP,LIPID,TSH,T4F ORDERED- ESR,CRP,ALT,AST,CRE,GFR,BUN,CBCD,C3,C4,DNA,UA Performed By: #### L 501.6710, L501.9520, L3100.5500, L100.0100, L500.4050, L500.4100, L3100.5800, L3100.5700, L506.0400, L400.0001, L101.9900 #### [facility] [address] [place], [place], [id number] Chloride [Moles/Vol] 104 mmol/L Normal 98-107 [facility] Comment on above: Order Comment: DR.AN SHAH ORDER- CMP,LIPID,TSH,T4F ORDERED- ESR,CRP,ALT,AST,CRE,GFR,BUN,CBCD,C3,C4,DNA,UA Performed By: #### L 501.6710, L501.9520, L3100.5500, L100.0100, L500.4050, L500.4100, L3100.5800, L3100.5700, L506.0400, L400.0001, L101.9900 #### [facility] [address] [place], [address] CO2 [Moles/Vol] 32.0 mmol/L Normal 21.0-32.0 [facility] Comment on above: Order Comment: DR.AN SHAH ORDER- CMP,LIPID,TSH,T4F ORDERED- ESR,CRP,ALT,AST,CRE,GFR,BUN,CBCD,C3,C4,DNA,UA Performed By: #### L 501.6710, L501.9520, L3100.5500, L100.0100, L500.4050, L500.4100, L3100.5800, L3100.5700, L506.0400, L400.0001, L101.9900 #### [facility] [address] [place], [address] Creatinine [Mass/Vol] 0.68 mg/dL Normal 0.55-1.02 [facility] Comment on above: Order Comment: DR.AN SHAH ORDER- CMP,LIPID,TSH,T4F ORDERED- ESR,CRP,ALT,AST,CRE,GFR,BUN,CBCD,C3,C4,DNA,UA Result Comment: The validity of the calculated GFR GFRAA in patients over 70 years has not been determined. Clinical correlation is essential. Performed By: #### L 501.6710, L501.9520, L3100.5500, L100.0100, L500.4050, L500.4100, L3100.5800, L3100.5700, L506.0400, L400.0001, L101.9900 #### [facility] [address] [place], [address] EST GFR - AA 116 mL/min Normal >60 [facility] Comment on above: Order Comment: DR.AN SHAH ORDER- CMP,LIPID,TSH,T4F ORDERED- ESR,CRP,ALT,AST,CRE,GFR,BUN,CBCD,C3,C4,DNA,UA Result Comment: Afri can Israeli GFR Calc Performed By: #### L 501.6710, L501.9520, L3100.5500, L100.0100, L500.4050, L500.4100, L3100.5800, L3100.5700, L506.0400, L400.0001, L101.9900 #### [facility] [address] [facility] [place], [place], [id number] GAP 2 Low 5-15 [facility] Comment on above: Order Comment: DR.AN SHAH ORDER- CMP,LIPID,TSH,T4F ORDERED- ESR,CRP,ALT,AST,CRE,GFR,BUN,CBCD,C3,C4,DNA,UA Performed By: #### L 501.6710, L501.9520, L3100.5500, L100.0100, L500.4050, L500.4100, L3100.5800, L3100.5700, L506.0400, L400.0001, L101.9900 #### [facility] [address] [place], [address] GFR/1.73 sq M.predicted among non-blacks MDRD (S/P/Bld) [Vol rate/Area] 96 mL/min/{1.73_m2} Normal >60 [facility] Comment on above: Order Comment: DR.AN SHAH ORDER- CMP,LIPID,TSH,T4F ORDERED- ESR,CRP,ALT,AST,CRE,GFR,BUN,CBCD,C3,C4,DNA,UA Result Comment: Non- GFR Calc Performed By: #### L 501.6710, L501.9520, L3100.5500, L100.0100, L500.4050, L500.4100, L3100.5800, L3100.5700, L506.0400, L400.0001, L101.9900 #### [facility] [address] [facility] [place], [place], [id number] Globulin (S) [Mass/Vol] 4.0 g/dL Normal 2.2-4.2 [facility] Comment on above: Order Comment: DR.AN SHAH ORDER- CMP,LIPID,TSH,T4F ORDERED- ESR,CRP,ALT,AST,CRE,GFR,BUN,CBCD,C3,C4,DNA,UA Performed By: #### L 501.6710, L501.9520, L3100.5500, L100.0100, L500.4050, L500.4100, L3100.5800, L3100.5700, L506.0400, L400.0001, L101.9900 #### [facility] [address] [place], [address] Glucose [Mass/Vol] 77 mg/dL Normal 74-106 [facility] Comment on above: Order Comment: DR.AN SHAH ORDER- CMP,LIPID,TSH,T4F ORDERED- ESR,CRP,ALT,AST,CRE,GFR,BUN,CBCD,C3,C4,DNA,UA Performed By: #### L 501.6710, L501.9520, L3100.5500, L100.0100, L500.4050, L500.4100, L3100.5800, L3100.5700, L506.0400, L400.0001, L101.9900 #### [facility] [address] [place] [place], [address] Potassium [Moles/Vol] 3.7 mmol/L Normal 3.5-5.1 [facility] Comment on above: Order Comment: DR.AN SHAH ORDER- CMP,LIPID,TSH,T4F ORDERED- ESR,CRP,ALT,AST,CRE,GFR,BUN,CBCD,C3,C4,DNA,UA Performed By: #### L 501.6710, L501.9520, L3100.5500, L100.0100, L500.4050, L500.4100, L3100.5800, L3100.5700, L506.0400, L400.0001, L101.9900 #### [facility] [address] [place], [address] Sodium [Moles/Vol] 138 mmol/L Normal 136-145 [facility] Comment on above: Order Comment: DR.AN SHAH ORDER- CMP,LIPID,TSH,T4F ORDERED- ESR,CRP,ALT,AST,CRE,GFR,BUN,CBCD,C3,C4,DNA,UA Performed By: #### L 501.6710, L501.9520, L3100.5500, L100.0100, L500.4050, L500.4100, L3100.5800, L3100.5700, L506.0400, L400.0001, L101.9900 #### [facility] [address] [place], [place], [id number] T PROT 7.5 g/dL Normal 6.4-8.2 [facility] Comment on above: Order Comment: DR.AN SHAH ORDER- CMP,LIPID,TSH,T4F ORDERED- ESR,CRP,ALT,AST,CRE,GFR,BUN,CBCD,C3,C4,DNA,UA Performed By: #### L 501.6710, L501.9520, L3100.5500, L100.0100, L500.4050, L500.4100, L3100.5800, L3100.5700, L506.0400, L400.0001, L101.9900 #### [facility] [address] [place], [place], [id number] Urea nitrogen [Mass/Vol] 10 mg/dL Normal 7-18 [facility] Comment on above: Order Comment: DR.AN SHAH ORDER- CMP,LIPID,TSH,T4F ORDERED- ESR,CRP,ALT,AST,CRE,GFR,BUN,CBCD,C3,C4,DNA,UA Performed By: #### L 501.6710, L501.9520, L3100.5500, L100.0100, L500.4050, L500.4100, L3100.5800, L3100.5700, L506.0400, L400.0001, L101.9900 #### [facility] [address] [place], [place], [id number] Erythrocyte Sed Rateon 04-15 SED RATE 8 mm/hr Normal 0-30 [facility] Comment on above: Order Comment: DR.AN SHAH ORDER- CMP,LIPID,TSH,T4FDJESS ORDERED-ESR,CRP,ALT,AST,CRE,GFR,BUN,CBCD,C3,C4,DNA,UA Performed By: #### L 500.2500, L100.0100 #### [facility] [address] [place], [place], [id number] Lipid Profileon 04-15-2024 Cholesterol [Mass/Vol] 176 mg/dL Normal [address] [facility] Comment on above: Order Comment: DR.AN SHAH ORDER- CMP,LIPID,TSH,T4F ORDERED- ESR,CRP,ALT,AST,CRE,GFR,BUN,CBCD,C3,C4,DNA,UA Result Comment: <200 mg/dL Desirable 200-240 mg/dL Borderline >240 mg/dL High Risk Performed By: #### L 501.6710, L501.9520, L3100.5500, L100.0100, L500.4050, L500.4100, L3100.5800, L3100.5700, L506.0400, L400.0001, L101.9900 #### [facility] [address] [place], [place], [id number] Cholesterol in HDL [Mass/Vol] 56 mg/dL Normal [facility] Comment on above: Order Comment: DR.AN SHAH ORDER- CMP,LIPID,TSH,T4F ORDERED- ESR,CRP,ALT,AST,CRE,GFR,BUN,CBCD,C3,C4,DNA,UA Result Comment: The drugs N-Acetylcysteine and Metamizole may falsely depress this assay. Reference Range HDL <40 mg/dL Low HDL Cholesterol HDL >or= 60 mg/dL High HDL Cholesterol Performed By: #### L 501.6710, L501.9520, L3100.5500, L100.0100, L500.4050, L500.4100, L3100.5800, L3100.5700, L506.0400, L400.0001, L101.9900 #### [facility] [address] [place], [address] Cholesterol in LDL [Mass/Vol] 87 mg/dL Normal 0-130 [facility] Comment on above: Order Comment: DR.AN SHAH ORDER- CMP,LIPID,TSH,T4F ORDERED- ESR,CRP,ALT,AST,CRE,GFR,BUN,CBCD,C3,C4,DNA,UA Performed By: #### L 501.6710, L501.9520, L3100.5500, L100.0100, L500.4050, L500.4100, L3100.5800, L3100.5700, L506.0400, L400.0001, L101.9900 #### [facility] [address] [place], [address] Cholesterol in VLDL [Mass/Vol] 33 mg/dL Normal 5-40 [facility] Comment on above: Order Comment: DR.AN SHAH ORDER- CMP,LIPID,TSH,T4F ORDERED- ESR,CRP,ALT,AST,CRE,GFR,BUN,CBCD,C3,C4,DNA,UA Performed By: #### L 501.6710, L501.9520, L3100.5500, L100.0100, L500.4050, L500.4100, L3100.5800, L3100.5700, L506.0400, L400.0001, L101.9900 #### [facility] [address] [place], [address] Triglyceride [Mass/Vol] 166 mg/dL Normal [facility] Comment on above: Order Comment: DR.AN SHAH ORDER- CMP,LIPID,TSH,T4F ORDERED- ESR,CRP,ALT,AST,CRE,GFR,BUN,CBCD,C3,C4,DNA,UA Result Comment: The drugs N-Acetylcysteine and Metamizole may falsely depress this assay. Serum Triglycerides Reference Interval Normal <150 mg/dL Borderline high 150 - 199 mg/dL High 200 - 499 mg/dL Very High > or = 500 mg/dL Performed By: #### L 501.6710, L501.9520, L3100.5500, L100.0100, L500.4050, L500.4100, L3100.5800, L3100.5700, L506.0400, L400.0001, L101.9900 #### [facility] [address] 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 Deidre Fagan DO Age/Sex: 53/F [place] [facility] [place]: Signed Intake Vital Signs 03/16/24 13:58 04/15/24 13:22 Height 5 ft 1 in 5 ft 1 in Weight: 254 lb 2 oz BMI 47.9 BP 140/89 H Intake Visit Reasons: ANNUAL [employer] Required: No Is patient in pain?: No Allergies glatiramer (copolymer 1) (From Copaxone) Allergy (Severe, Verified 04/15/24 13:22) hypotension, shaking, irregular breathing aspirin Allergy (Verified 04/15/24 13:22) Anaphylaxis codeine Allergy (Verified 04/15/24 13:22) Anaphylaxis Penicillins Allergy (Verified 04/15/24 13:22) rash amlodipine Adverse Reaction (Intermediate, Verified 04/15/24 13:22) Swelling in shins and ankles ached erythromycin base (From Erythrocin) Adverse Reaction (Verified 04/15/24 13:22) Unknown hydrocodone (From Vicodin) Adverse Reaction (Verified 04/15/24 13:22) syncope ketorolac (From Toradol) Adverse Reaction (Verified 04/15/24 13:22) anxious Medications ???Medication ???Instructions ???Recorded ???Confirmed ???Type tizanidine 4 mg capsule 4 mg PO QHS muscle spasms 01/16/21 04/15/24 History diroximel fumarate 231 mg 231 mg PO BID 01/21/23 04/15/24 History capsule,delayed release (Vumerity) cholecalciferol (vitamin D3) 25 25 mcg PO DAILY 02/28/23 04/15/24 History mcg (1,000 unit) capsule lancing device with lancets kit #1 ea 03/11/23 04/15/24 Rx (Accu-Chek FastClix Lancing Device kit) blood sugar diagnostic (Accu-Chek #150 ea 07/08/23 04/15/24 Rx Guide test strips) blood-glucose meter (Accu-Chek #1 ea 07/08/23 04/15/24 Rx Guide Glucose Meter) lancets (Accu-Chek Fastclix Lancet #200 ea 07/08/23 04/15/24 Rx Drum) aspirin 81 mg tablet,delayed 81 mg PO DAILY 07/12/23 04/15/24 History release (Adult Low Dose Aspirin) hydrochlorothiazide 25 mg tablet 25 mg PO DAILY this is a dose 11/22/23 04/15/24 Rx increase #90 tabs losartan 50 mg tablet 50 mg PO BID #180 tabs 11/22/23 04/15/24 Rx rosuvastatin 5 mg tablet 5 mg PO DAILY #90 tabs 11/22/23 04/15/24 Rx levothyroxine 150 mcg tablet 150 mcg PO DAILY thyroid #90 tabs 12/23/23 04/15/24 Rx diclofenac sodium 50 mg 50 mg PO TID 01/01/24 04/15/24 History tablet,delayed release gabapentin 400 mg capsule 400 mg PO BID 01/01/24 04/15/24 History hydroxychloroquine 200 mg tablet 200 mg PO QDAY 01/01/24 04/15/24 History semaglutide 0.25 mg or 0.5 mg (2 0.5 mg (0.736 mL) subcut QWEEK #3 01/01/24 04/15/24 Rx mg/3 mL) subcutaneous pen injector mL (Ozempic) insulin glargine 100 unit/mL (3 28 unit (0.28 mL) subcut QAM #30 mL 02/27/24 04/15/24 Rx mL) subcutaneous pen (Lantus Solostar U-100 Insulin) insulin lispro 100 unit/mL 10 unit subcut TID 02/27/24 04/15/24 History subcutaneous pen (Humalog KwikPen (U-100) Insulin) metoprolol succinate 50 mg 50 mg PO QDAY #180 tabs 02/27/24 04/15/24 Rx tablet,extended release 24 hr (Toprol XL) Post menopausal: No Patient : No : No PFSH Medical History Edema of both upper extremities Lupus (systemic lupus erythematosus) Nonsustained monomorphic ventricular tachycardia Pacemaker lead malfunction Coronary-myocardial bridge Obesity Anxiety Thyroid disease Rheumatoid arthritis Anemia Easy bruising Excessive bleeding Migraine headache Back pain Hx of vertigo Multiple sclerosis Dietary restriction Former smoker Shortness of breath on exertion History of pain when walking History of edema Cardiology follow-up encounter Mobitz type 2 second degree AV block Arthritis Seasonal allergies Coronary-myocardial bridge Abnormal electrocardiogram Vitamin D deficiency Hypothyroidism Essential (primary) hypertension Spinal stenosis Uncontrolled diabetes mellitus with microalbuminuria Type 2 diabetes mellitus Cervicalgia Hyperlipidemia Insomnia Right bundle branch block (RBBB) Surgical History History of permanent cardiac pacemaker placement (02/06/21) History of cardiac catheterization History of left heart catheterization (07/30/18) Hx of cholecystectomy History of carpal tunnel release History of hysterectomy History of parathyroidectomy H/O partial thyroidectomy Family History Other Adopted Social History adopted: Yes household members: spouse and children current occupational status: employed current occupation: [employer] Smoking (more content not included)... Normal [facility] SCRN MAMM (CAD)W/FEDE webster 04-15-2024 SCRN MAMM (CAD)W/FEDE DU [facility] Services [address], [place] [id number] SCRN MAMM (CAD)W/FEDE DU MR#: [id number] Acct: [id number] Name: KVNG LANDRY Rep #: [id number] : 1970 F 53 From: Chauncey khanna MD PCP: Dr. Elmer Richards MD Status: [facility] Study: SCRN MAMM (CAD)W/FEDE BILAT Date of Exam: 04/05 05/29 Exam# [id number] Ordering Dr: Brigida Rivers [employer]GST[employer]ENDER-C [id number] MAMMOGRAPHY - BILATERAL SCREENING REASON FOR EXAM: Female, 53 years old. Routine annual screening examination. PERTINENT HISTORY: Grandmother with breast cancer. TECHNIQUE: Digital bilateral breast fede (3D mammographic acquisition) in the CC and MLO projections. 2-D mediolateral oblique (MLO) and craniocaudad (CC) views of both breasts were obtained. CAD: Full Field Digital Mammography with Computer Added Detection was performed. COMPARISON: Comparison is made with prior study dated March 20, 2023 and February 05, 2022. FINDINGS: Breast Composition: The breasts are heterogeneously dense, which may obscure small masses. There are no dominant masses or suspicious calcifications. Stable bilateral fat containing axillary lymph nodes. The battery pack of a pacemaker is seen in the left axilla. No other significant abnormalities are identified. There has been no significant change since the prior study. BI/SCRN MAMM (CAD)W/FEDE BILAT IMPRESSION: Stable bilateral screening mammogram. Yearly follow-up mammogram recommended. (A) ASSESSMENT CATEGORY: BIRADS Category 2: Benign. A letter regarding these results will be sent to the patient by the facility within 30 days. Approximately 10% of breast cancers are not detected by mammography. A normal mammogram should not delay biopsy of a clinically suspicious abnormality. [id number] Electronically Signed: Chauncey Estrada MD at 13:54 EST , CC: MIGUEL Rivers; Dr. Elmer Richards MD Technical Training Instructor: Signed Normal [facility] T4 Free Directon 04-15-2024 T4 FREE DIRECT 1.04 ng/dL Normal 0.76-1.46 [facility] Comment on above: Order Comment: DR.AN SHAH ORDER- CMP,LIPID,TSH,T4F ORDERED- ESR,CRP,ALT,AST,CRE,GFR,BUN,CBCD,C3,C4,DNA,UA Performed By: #### L 501.6710, L501.9520, L3100.5500, L100.0100, L500.4050, L500.4100, L3100.5800, L3100.5700, L506.0400, L400.0001, L101.9900 #### [facility] [address] [place], [place], [id number] Thyroid Stim Hormone (TSH)on 04-15-2024 TSH 3.270 uIU/mL Normal 0.358-3.740 [facility] Comment on above: Order Comment: DR.AN SHAH ORDER- CMP,LIPID,TSH,T4F ORDERED- ESR,CRP,ALT,AST,CRE,GFR,BUN,CBCD,C3,C4,DNA,UA Performed By: #### L 501.6710, L501.9520, L3100.5500, L100.0100, L500.4050, L500.4100, L3100.5800, L3100.5700, L506.0400, L400.0001, L101.9900 #### [facility] [address] [place], [place], [id number] Urinalysis, Completeon 04-15 BACTERIA 1+ /hpf Normal None Seen [facility] Comment on above: Order Comment: DR.AN SHAH ORDER- CMP,LIPID,TSH,T4F ORDERED- ESR,CRP,ALT,AST,CRE,GFR,BUN,CBCD,C3,C4,DNA,UA CLEAN CATCH Performed By: #### L 501.6710, L501.9520, L3100.5500, L100.0100, L500.4050, L500.4100, L3100.5800, L3100.5700, L506.0400, L400.0001, L101.9900 #### [facility] [address] [place], [address] EPI,SQUAMOUS 0-5 SEEN Normal 5-10 [facility] Comment on above: Order Comment: DR.AN SHAH ORDER- CMP,LIPID,TSH,T4F ORDERED- ESR,CRP,ALT,AST,CRE,GFR,BUN,CBCD,C3,C4,DNA,UA CLEAN CATCH Performed By: #### L 501.6710, L501.9520, L3100.5500, L100.0100, L500.4050, L500.4100, L3100.5800, L3100.5700, L506.0400, L400.0001, L101.9900 #### [facility] [address] [place], [place], [id number] (312) Mucus Ql (Urine sed) 0 SEEN Normal [facility] Comment on above: Order Comment: DR.AN SHAH ORDER- CMP,LIPID,TSH,T4F ORDERED- ESR,CRP,ALT,AST,CRE,GFR,BUN,CBCD,C3,C4,DNA,UA CLEAN CATCH Performed By: #### L 501.6710, L501.9520, L3100.5500, L100.0100, L500.4050, L500.4100, L3100.5800, L3100.5700, L506.0400, L400.0001, L101.9900 #### [facility] [address] [place], [address] RBC 0 SEEN Normal 0-5 [facility] Comment on above: Order Comment: DR.AN SHAH ORDER- CMP,LIPID,TSH,T4F ORDERED- ESR,CRP,ALT,AST,CRE,GFR,BUN,CBCD,C3,C4,DNA,UA CLEAN CATCH Performed By: #### L 501.6710, L501.9520, L3100.5500, L100.0100, L500.4050, L500.4100, L3100.5800, L3100.5700, L506.0400, L400.0001, L101.9900 #### [facility] [address] [place], [place], [id number] WBC 0 SEEN Normal 0-5 [facility] Comment on above: Order Comment: DR.AN SHAH ORDER- CMP,LIPID,TSH,T4F ORDERED- ESR,CRP,ALT,AST,CRE,GFR,BUN,CBCD,C3,C4,DNA,UA CLEAN CATCH Performed By: #### L 501.6710, L501.9520, L3100.5500, L100.0100, L500.4050, L500.4100, L3100.5800, L3100.5700, L506.0400, L400.0001, L101.9900 #### [facility] [address] [place], [place], [id number] Vitamin D,25 Hydroxyon 04-15 Vitamin D 25-OH 29.7 ng/mL Normal [facility] Comment on above: Result Comment: Ashleigh min D 25(OH) Status Range Deficiency <20 ng/mL (50nmol/L) Insufficiency 20 - 30 ng/mL (50 - 75 nmol/L) Sufficiency 30 - 100 ng/mL (75 - 250 nmol/L) Toxicity >100 ng/mL (>250 nmol/L) Performed By: #### L 500.2500, L100.0100 #### [facility] [address] [place], [place], [id number] [facility] KVNG LANDRY ([id number]) 1970 F Date Time Provider Department 04/14/24 [facility] During your visit today, we recorded the following information about you: Jovita Teixeira 04/14/2024 9:16 AM Signed Called patient to schedule est VV with Dr Everett imaging review and surgical discussion, no answer left voicemail Allergies As of Date: 04/14/2024 Noted Allergy Reaction CODEINE 12/03/2008 10 - Anaphylaxis 14 - Other: See Comments ERYTHROMYCIN 07/20/2014 2 - Rash 7 - Swelling TORADOL (KETOROLAC) 07/20/2014 9 - Itching Comments: Given with Vicodin at the time of the reaction. VICODIN (HYDROCODONE-ACETAMINOP HE*07/20/2014 9 - Itching Comments: Given with Toradol at the time of the reaction. AMLODIPINE 01/23/2023 14 - Other: See Comments CEFDINIR 12/03/2008 14 - Other: See Comments COPAXONE (GLATIRAMER) 04/01/2023 12 - Shortness of Breath HYDROCODONE 12/03/2008 14 - Other: See Comments JARDIANCE (EMPAGLIFLOZIN) 04/01/2023 14 - Other: See Comments Comments: Chronic yeast infection PENICILLINS 07/20/2014 4 - Hives Date Reviewed: 09/11/2023 Reviewed by: Claudio Florse, RN - Fully Assessed Prescriptions as of 04/14/2024 - TRUE METRIX GLUCOSE TEST STRIP test strip use 1 TEST STRIP to TEST BLOOD SUGAR four times a day - TRUE METRIX GLUCOSE METER as directed. - TRUEPLUS LANCETS 30 gauge use 1 LANCET to TEST BLOOD SUGAR four times a day - LORazepam (ATIVAN) 1 mg tablet Take 1 tablet by mouth every 12 hours. - cholecalciferol (VITAMIN D3) 1,000 unit tab tablet Take 1 tablet by mouth every afternoon. - tiZANidine (ZANAFLEX) 4 mg tablet - levothyroxine (SYNTHROID) 150 mcg tablet Take 1 tablet by mouth every afternoon. - insulin lispro (HUMALOG KWIKPEN) 100 unit/mL inject 10 units subcutaneously three times a day - aspirin, enteric coated (ASPIRIN, ENTERIC COATED) 81 mg EC tablet Take 81 mg by mouth once daily. - omega-3 fatty acids/fish oil (FISH OIL-OMEGA-3 FATTY ACIDS) 300-1,000 mg cap Take by mouth. - Multivitamins-Minerals- Lutein (MULTIVITAMIN 50 PLUS) tab Take 1 tablet by mouth once daily. - Ascorbic Acid (VITAMIN C) 1,000 mg tablet Take 1,000 mg by mouth once daily. - diroximel fumarate (VUMERITY) 231 mg capsule, delayed release Take 462 mg by mouth two times a day. - hydroCHLOROthiazide 25 mg tablet Take 25 mg by mouth once daily. - rosuvastatin (CRESTOR) 5 mg tablet Take 5 mg by mouth once daily. - metoprolol succinate ER (TOPROL XL) 50 mg 24 hr tablet Take 50 mg by mouth two times a day. - insulin glargine (LANTUS SOLOSTAR U-100 INSULIN) 100 unit/mL (3 mL) Inject subcutaneously. - gabapentin (NEURONTIN) 300 mg capsule Take 400 mg by mouth three times a day as needed (nerve pain). - losartan (COZAAR) 50 mg tablet Take 50 mg by mouth two times a day. - acetaminophen (TYLENOL) 500 mg tablet Take 1 tablet by mouth every 6 hours as needed. 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*03/19/2017 Spondylolisthesis of lumbar region [M43.16] 03/19/2017 Abnormal electrocardiography [R94.31] 07/17/2023 Diagnosed: 07/17/2023 Candidiasis of vagina [B37.31] 07/17/2023 07/18/2023 Diagnosed: 07/17/2023 Spondylosis of cervical spine [M47.812] 03/09/2022 Diagnosed: 07/17/2023 Chest pain [R07.9] 07/17/2023 Diagnosed: 07/17/2023 Diabetes mellitus (HCC) [E11.9] 01/21/2023 Diagnosed: 07/17/2023 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/2023 Diagnosed: 07/17/2023 Dyspnea on exertion [R06.09] 07/17/2023 Diagnosed: 07/17/2023 Fatigue [R53.83] 11/15/2022 Diagnosed: 07/17/2023 History of cardiac catheterization [Z98.890] 07/30/2018 Diagnosed: 07/17/2023 Hyperlipidemia [E78.5] 01/21/2023 Diagnosed: 07/17/2023 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 [*01/21/2023 Diagnosed: 07/17/2023 Lumbosacral radiculopathy [M54.17] 11/14/2021 Diagnosed: 07/17/2023 Migraine [G43.909] 07/17/2023 Diagnosed: 07/17/2023 Muscle pain [M79.10] 03/09/2022 Diagnosed: 07/17/2023 Neck pain [M54.2] 12/15/2021 Diagnosed: 07/17/2023 Palpitations [R00.2] 07/17/2023 Diagnosed: 07/17/2023 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 Normal [facility] Benigno 04-13-2024 CNPN Telephone ([facility]) KVNG LANDRY ([id number]) 1970 F Date Time Provider Department 04/13/24 [facility] During your visit today, we recorded the following information about you: Tracie Landrum 04/13/2024 9:06 AM Signed Call received for Shawn Everett MD regarding Kvng A Gris 1970. Caller: Self Patient Identified by Name and : Yes Was permission obtained from patient ? Yes Reason for Call: The patient called to inform Dr. Everett that all her imaging, including the MRI and X-ray, has been uploaded to [employer] and is available for his review and surgical evaluation. Last Office Visit: Visit date not found Last [facility] visit: Visit date not found Next scheduled appointment: Visit date not found Best number to reach caller: [phone] Best time to reach caller: Any Is it OK to leave a detailed voice message? Yes Mila Barker RN 04/14/2024 4:43 PM Signed NEUROSURGERY CARE COORDINATION [facility] QUICK NOTE Per Dr. Everett, patient to schedule follow up appointment. Routing to [facility] to call patient and assist with scheduling follow up appointment to review and discuss images. Shawn Everett MD Dietz, Monica, [id number] hours ago (5:58 PM) Okay to schedule follow up TRINI León, RN April 14, 2024 4:42 PM Olive Xiao 04/15/2024 9:10 AM Signed Patient has been scheduled for a virtual follow up. Allergies As of Date: 04/13/2024 Noted Allergy Reaction CODEINE 12/03/2008 10 - Anaphylaxis 14 - Other: See Comments ERYTHROMYCIN 07/20/2014 2 - Rash 7 - Swelling TORADOL (KETOROLAC) 07/20/2014 9 - Itching Comments: Given with Vicodin at the time of the reaction. VICODIN (HYDROCODONE-ACETAMINOP HE*07/20/2014 9 - Itching Comments: Given with Toradol at the time of the reaction. AMLODIPINE 01/23/2023 14 - Other: See Comments CEFDINIR 12/03/2008 14 - Other: See Comments COPAXONE (GLATIRAMER) 04/01/2023 12 - Shortness of Breath HYDROCODONE 12/03/2008 14 - Other: See Comments JARDIANCE (EMPAGLIFLOZIN) 04/01/2023 14 - Other: See Comments Comments: Chronic yeast infection PENICILLINS 07/20/2014 4 - Hives Date Reviewed: 09/11/2023 Reviewed by: Claudio Flores RN - Fully Assessed Reason for Visit: Patient Question [1477] Prescriptions as of 04/15/2024 - TRUE METRIX GLUCOSE TEST STRIP test strip use 1 TEST STRIP to TEST BLOOD SUGAR four times a day - TRUE METRIX GLUCOSE METER as directed. - TRUEPLUS LANCETS 30 gauge use 1 LANCET to TEST BLOOD SUGAR four times a day - LORazepam (ATIVAN) 1 mg tablet Take 1 tablet by mouth every 12 hours. - cholecalciferol (VITAMIN D3) 1,000 unit tab tablet Take 1 tablet by mouth every afternoon. - tiZANidine (ZANAFLEX) 4 mg tablet - levothyroxine (SYNTHROID) 150 mcg tablet Take 1 tablet by mouth every afternoon. - insulin lispro (HUMALOG KWIKPEN) 100 unit/mL inject 10 units subcutaneously three times a day - aspirin, enteric coated (ASPIRIN, ENTERIC COATED) 81 mg EC tablet Take 81 mg by mouth once daily. - omega-3 fatty acids/fish oil (FISH OIL-OMEGA-3 FATTY ACIDS) 300-1,000 mg cap Take by mouth. - Multivitamins-Minerals- Lutein (MULTIVITAMIN 50 PLUS) tab Take 1 tablet by mouth once daily. - Ascorbic Acid (VITAMIN C) 1,000 mg tablet Take 1,000 mg by mouth once daily. - diroximel fumarate (VUMERITY) 231 mg capsule, delayed release Take 462 mg by mouth two times a day. - hydroCHLOROthiazide 25 mg tablet Take 25 mg by mouth once daily. - rosuvastatin (CRESTOR) 5 mg tablet Take 5 mg by mouth once daily. - metoprolol succinate ER (TOPROL XL) 50 mg 24 hr tablet Take 50 mg by mouth two times a day. - insulin glargine (LANTUS SOLOSTAR U-100 INSULIN) 100 unit/mL (3 mL) Inject subcutaneously. - gabapentin (NEURONTIN) 300 mg capsule Take 400 mg by mouth three times a day as needed (nerve pain). - losartan (COZAAR) 50 mg tablet Take 50 mg by mouth two times a day. - acetaminophen (TYLENOL) 500 mg tablet Take 1 tablet by mouth every 6 hours as needed. 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 Normal [facility] MRI SPINE CERVICAL W/ + W/O CONTRASTon 02-25-2024 MRI SPINE CERVICAL W/ + W/O CONTRAST ORIGINAL EXAMINATION: MRI OF THE CERVICAL SPINE WITHOUT AND WITH TKNJEIWZ18/21/2024 10:56 am TECHNIQUE: Multiplanar multisequence MRI of the cervical spine was performed without and with the administration of intravenous contrast. COMPARISON: 06/25/2022 MR cervical spine HISTORY: ORDERING SYSTEM PROVIDED HISTORY: Reason for Exam: MULTIPLE SCLEROSIS FINDINGS: The cervical spinal cord is normal in size and contour. Similar appearance intramedullary T2 STIR hyperintense focus involving the right lateral column at C3. There is no abnormal intramedullary or leptomeningeal enhancement. The cervical spine demonstrates normal alignment. Vertebral bodies are normal in height. There is a normal marrow signal pattern. Intervertebral disc desiccation at the levels of C3-C4 and C4-C5. The paraspinal soft tissues, craniocervical junction and included intracranial structures are normal. Susceptibility artifacts from a left precordial pacer visualized on localizer imaging. C2-3: No significant disc bulge. No central canal stenosis. No neural foramen stenosis. C3-4: No significant disc bulge. No central canal stenosis. Mild left neural foramen stenosis. C4-5: No significant disc bulge. No central canal stenosis. Mild left neural foraminal stenosis. C5-6: Mild posterior disc bulge eccentric to the left. Mild central canal stenosis. Mild bilateral neural foramen stenosis. C6-7: Mild posterior disc bulge mild central canal stenosis. Mild bilateral neural foramen stenosis. C7-T1: No significant disc bulge. Mild central canal stenosis. Mild bilateral neural foraminal stenosis. IMPRESSION: No areas contrast enhancement to suggest active demyelination. Similar appearance of STIR hyperintense focus involving the right lateral column at C3. Cervical spine levels described as above. I have personally reviewed the images of this examination and agree with the resident's findings and interpretation. Interpreted by: Tyler Montano MD Preliminary Report By: Fish Collins Electronically signed By Tyler Montano MD Dictated Date: 02/25/2024 10:59:11 AM Prelim Date: 02/25/2024 2:35:35 PM Sign Date: 02/25/2024 2:35:35 PM Ordering Provider: IVAN SEVERINO [facility] MAIN MRI BRAIN W/ + W/O CONTRASTo n 02-24-2024 MRI BRAIN W/ + W/O CONTRAST ORIGINAL HISTORY: Multiple sclerosis COMPARISON: 25 June 2022 TECHNIQUE: 1. Axial and sagittal T1-weighted images. 2. Axial T2-weighted images. 3. Axial and sagittal FLAIR images. 4. Axial diffusion-weighted images with ADC map. 5. Axial, coronal and sagittal T1-weighted images following uncomplicated administration of intravenous gadolinium contrast. FINDINGS: The ventricles and sulci are mildly enlarged. There are no abnormal intra or extra-axial fluid collections. There are mild scattered punctate and nodular T2 hyperintensities in the cerebral white matter. There is mild T2 hyperintensity along the callososeptal interface. Bhakta-white matter differentiation is maintained. There is no abnormal restriction of diffusion. There is no abnormal enhancement of the brain or its coverings. The orbital contents are unremarkable in appearance. The paranasal sinuses are clear. IMPRESSION: No significant interval change. Interpreted by: Sha Gaitan MD Preliminary Report By: Sha Gaitan MD Electronically signed By Sha Gaitan MD Dictated Date: 02/24/2024 1:52:49 PM Prelim Date: 02/24/2024 2:07:27 PM Sign Date: 02/24/2024 2:07:27 PM Ordering Provider: IVAN SEVERINO [facility] MAIN MRI SPINE LUMBAR W/ + W/O CO NTRASTon 02-21-2024 MRI SPINE LUMBAR W/ + W/O CONTRAST ORIGINAL EXAMINATION: MRI OF THE LUMBAR SPINE WITHOUT AND WITH CONTRAST 02/21/2024 12:47 pm TECHNIQUE: Multiplanar multisequence MRI of the lumbar spine was performed without and with the administration of intravenous contrast. COMPARISON: CT lumbar spine 07/02/2023. HISTORY: ORDERING SYSTEM PROVIDED HISTORY: Reason for Exam: Low back pain radiates down bilateral lower extremities with paresthesias and weakness, worse on the right. Saddle anesthesia since May FINDINGS: BONES/ALIGNMENT: 3 mm of anterolisthesis of L4 on L5 from facet hypertrophy. SPINAL CORD: The conus terminates normally. SOFT TISSUES: No abnormal enhancement is seen of the lumbar spine. No paraspinal mass identified. L1-L2: There is no significant disc protrusion, spinal canal stenosis or neural foraminal narrowing. L2-L3: There is no significant disc protrusion, spinal canal stenosis or neural foraminal narrowing. L3-L4: Facet hypertrophy. There is no significant disc protrusion, spinal canal stenosis or neural foraminal narrowing. L4-L5: Hypertrophic facet arthropathy results in about 3 mm of anterolisthesis of L4 on L5. There is moderately severe central canal stenosis without significant foraminal narrowing. L5-S1: Facet hypertrophy. There is no significant disc protrusion, spinal canal stenosis or neural foraminal narrowing. IMPRESSION: 1. Facet arthropathy at L3-L4 through L5-S1. 2. Moderately severe central canal stenosis at L4-L5 from facet hypertrophy and mild degenerative anterolisthesis. Interpreted by: Elmer Michel Preliminary Report By: Elmer Michel Electronically signed By Elmer Michel Dictated Date: 02/21/2024 12:49:45 PM Prelim Date: 02/21/2024 12:52:21 PM Sign Date: 02/21/2024 12:52:21 PM Ordering Provider: MARQUITA VERGARA [facility] MAIN MRI SPINE THORACIC W/ + W/O CONTRASTon 02-21-2024 MRI SPINE THORACIC W/ + W/O CONTRAST ORIGINAL EXAMINATION: MRI OF THE THORACIC SPINE WITHOUT AND WITH CONTRAST 02/21/2024 12:49 pm TECHNIQUE: Multiplanar multisequence MRI of the thoracic spine was performed without and with the administration of intravenous contrast. COMPARISON: None HISTORY: ORDERING SYSTEM PROVIDED HISTORY: Reason for Exam: MULTIPLE SCLEROSIS FINDINGS: BONES/ALIGNMENT: There is normal alignment of the spine. The vertebral body heights are maintained. The bone marrow signal appears unremarkable. SPINAL CORD: No abnormal cord signal is seen. SOFT TISSUES: No abnormal enhancement of the thoracic spine. No paraspinal mass identified. DEGENERATIVE CHANGES: No significant spinal canal stenosis or neural foraminal narrowing of the thoracic spine. IMPRESSION: No evidence of demyelinating disease in the thoracic spine. Interpreted by: Elmer Michel Preliminary Report By: Elmer Michel Electronically signed By Elmer Michel Dictated Date: 02/21/2024 12:52:41 PM Prelim Date: 02/21/2024 12:55:25 PM Sign Date: 02/21/2024 12:55:25 PM Ordering Provider: IVAN SEVERINO [facility] MAIN XR SPINE LUMBAR AP/LAT/FLEX/ EXTon 02-21-2024 XR SPINE LUMBAR AP/LAT/FLEX/EXT ORIGINAL EXAMINATION: AP lateral flexion and extension 4 XRAY VIEWS OF THE LUMBAR SPINE02/21/2024 11:53 am COMPARISON: 03/27/2017 HISTORY: ORDERING SYSTEM PROVIDED HISTORY: Reason for Exam: low back pain, FINDINGS: There are 5 non rib-bearing lumbar type vertebral bodies that show normal height with no fracture or compression deformity. In the neutral position there is 6 mm of L4-5 anterolisthesis that is unchanged with flexion and slightly reduces with extension. No underlying spondylolysis. There is mild to moderate lower lumbar facet arthropathy. Lower thoracic spondylosis also. IMPRESSION: Degenerative changes with L4-5 anterolisthesis with no dynamic instability. Interpreted by: Abdirahman Bolden MD Preliminary Report By: Abdirahman Bolden MD Electronically signed By Abdirahman Bolden MD Dictated Date: 02/21/2024 4:40:23 PM Prelim Date: 02/21/2024 4:41:57 PM Sign Date: 02/21/2024 4:41:57 PM Ordering Provider: TATO Hilton [facility] METon 02-16-2024 Methylmalonic Acid 179 nmol/L Normal 0-378 [facility] Comment on above: Result Comment: This test was developed and its performance characteristics determined by [facility]. It has not been cleared or approved by the Food and Drug Administration. Performed At: [address] [id number] Michael Mesa MD Ph:[phone] Performed By: #### E SR, CK, CRP #### [address] [address] [id number] 02-10-2024 Vitamin B1 Whl Bld 145.7 nmol/L Normal 66.5-200.0 [facility] Comment on above: Result Comment: This test was developed and its performance characteristics determined by [facility]. It has not been cleared or approved by the Food and Drug Administration. Performed At: [address] [id number] Michael Mesa MD Ph:[phone] Performed By: #### E SR, CK, CRP #### [address] [address] SPEon 02-06-2024 SPE Interpretation Normal serum protein electrophoresis pattern. No abnormality detected. Normal [facility] Comment on above: Result Comment: Elec tronically Signed by: FLORENCIA KEY 02/06/2024 15:07 EDT Performed By: #### E SR, CK, CRP #### [address] [address] Albumin 3.4 G/dL Normal 3.3-5.0 [facility] Comment on above: Performed By: #### E SR, CK, CRP #### [address] [address] Alpha 1 0.3 G/dL Normal 0.1-0.4 [facility] Comment on above: Performed By: #### E SR, CK, CRP #### [address] [address] Alpha 2 0.9 G/dL Normal 0.6-1.2 [facility] Comment on above: Performed By: #### E SR, CK, CRP #### [place] [address] Beta 1.1 G/dL Normal 0.6-1.3 [facility] Comment on above: Performed By: #### E SR, CK, CRP #### [place] [address] Gamma 1.1 G/dL Normal 0.7-1.6 [facility] Comment on above: Performed By: #### E SR, CK, CRP #### [place] [address] .Auto Diffon 02-05-2024 Basophil, Absolute 0.1 10 3/mcL Normal 0.0-0.2 [facility] Comment on above: Performed By: #### T SH, 011984, FT4, ANEU, HFP, 910043, ADIFF, CBC, A1C #### [place] [address] #### B12, SPE #### [address] [address] Basophils/100 WBC (Bld) 0.7 % Normal 0.0-2.5 [facility] Comment on above: Performed By: #### T SH, 958299, FT4, ANEU, HFP, 983485, ADIFF, CBC, A1C #### [place] [address] #### B12, SPE #### [address] [address] Eosinophil, Absolute 0.4 10 3/mcL Normal 0.0-0.7 [facility] Comment on above: Performed By: #### T SH, 765565, FT4, ANEU, HFP, 679685, ADIFF, CBC, A1C #### [place] [address] #### B12, SPE #### [address] [address] Eosinophils/100 WBC (Bld) 4.9 % Normal 0.0-7.0 [facility] Comment on above: Performed By: #### T SH, 162232, FT4, ANEU, HFP, 858274, ADIFF, CBC, A1C #### [place] [address] #### B12, SPE #### [address] [address] Lymphocyte, Absolute 1.2 10 3/mcL Normal 0.9-4.3 [facility] Comment on above: Performed By: #### T SH, 058812, FT4, ANEU, HFP, 291578, ADIFF, CBC, A1C #### [place] [address] #### B12, SPE #### [address] [address] Lymphocytes/100 WBC (Bld) 14.0 % Low 20.0-40.0 [facility] Comment on above: Performed By: #### T SH, 450920, FT4, ANEU, HFP, 194218, ADIFF, CBC, A1C #### [place] [address] #### B12, SPE #### [address] [address] Monocyte, Absolute 0.6 10 3/mcL Normal 0.1-1.4 [facility] Comment on above: Performed By: #### T SH, 613917, FT4, ANEU, HFP, 755373, ADIFF, CBC, A1C #### [place] [address] #### B12, SPE #### [address] [address] Monocytes/100 WBC (Bld) 7.6 % Normal 2.0-13.0 [facility] Comment on above: Performed By: #### T SH, 979892, FT4, ANEU, HFP, 640804, ADIFF, CBC, A1C #### [address] [address] #### B12, SPE #### [address] [address] Neutrophils/100 WBC (Bld) 72.8 % Normal 50.0-75.0 [facility] Comment on above: Performed By: #### T SH, 648130, FT4, ANEU, HFP, 545519, ADIFF, CBC, A1C #### [place] [address] #### B12, SPE #### [address] [address] .NEUABSon 02-05-2024 Neutrophil, Absolute 6.0 10 3/mcL Normal 2.3-8.1 [facility] Comment on above: Performed By: #### T SH, 830764, FT4, ANEU, HFP, 989728, ADIFF, CBC, A1C #### [place] [address] #### B12, SPE #### [address] [address] A1Con 02-05-2024 Glucose [Mass/Vol] 151 mg/dL Normal [facility] Comment on above: Result Comment: Mary mated Average Glucose calculated by equation ((28.7xA1C)-46.7) Estimated average glucose (eAG) is a calculated value from Hemoglobin A1C and is product sales representative of the average blood glucose level in the last 2-3 month period. Normal range: less than 114 mg/dL Performed By: #### T SH, 061834, FT4, ANEU, HFP, 919133, ADIFF, CBC, A1C #### [place] [address] #### B12, SPE #### [address] [address] HbA1c (Bld) [Mass fraction] 6.9 % High 4.3-6.4 [facility] Comment on above: Performed By: #### T SH, 583241, FT4, ANEU, HFP, 344750, ADIFF, CBC, A1C #### [place] [address] #### B12, SPE #### [address] [address] B12on 02-05-2024 Cobalamin (Vitamin B12) [Mass/Vol] 462 pg/mL Normal 211-911 [facility] Comment on above: Performed By: #### E SR, CK, CRP #### [place] [address] CBCon 02-05-2024 Erythrocyte distribution width (RBC) [Ratio] 12.7 % Normal 11.5-15.5 [facility] Comment on above: Performed By: #### T SH, 984918, FT4, ANEU, HFP, 626101, ADIFF, CBC, A1C #### [place] [address] #### B12, SPE #### [place] [address] Hematocrit (Bld) [Volume fraction] 40.0 % Normal 34.0-46.0 [facility] Comment on above: Performed By: #### T SH, 312529, FT4, ANEU, HFP, 759285, ADIFF, CBC, A1C #### [place] [address] #### B12, SPE #### [place] [address] Hgb 13.6 G/dL Normal 12.0-16.0 [facility] Comment on above: Performed By: #### T SH, 711742, FT4, ANEU, HFP, 142047, ADIFF, CBC, A1C #### [place] [address] #### B12, SPE #### [place] [address] MCH (RBC) [Entitic mass] 30.8 pg Normal 27.0-33.0 [facility] Comment on above: Performed By: #### T SH, 132995, FT4, ANEU, HFP, 539046, ADIFF, CBC, A1C #### [place] [address] #### B12, SPE #### [address] [address] MCHC 34.1 G/dL Normal 32.0-36.0 [facility] Comment on above: Performed By: #### T SH, 139525, FT4, ANEU, HFP, 147801, ADIFF, CBC, A1C #### [place] [address] #### B12, SPE #### [place] [address] MCV (RBC) [Entitic vol] 90.4 fL Normal 80.0-99.0 [facility] Comment on above: Performed By: #### T OMAR, 420394, FT4, ANEU, HFP, 754021, ADIFF, CBC, A1C #### [place] [address] #### B12, SPE #### [place] [address] Platelet 280 10 3/mcL Normal 150-450 [facility] Comment on above: Performed By: #### T OMAR, 069218, FT4, ANEU, HFP, 662790, ADIFF, CBC, A1C #### [place] [address] #### B12, SPE #### [place] [address] Platelet mean volume (Bld) [Entitic vol] 7.7 fL Normal 6.6-10.5 [facility] Comment on above: Performed By: #### T SH, 407235, FT4, ANEU, HFP, 878398, ADIFF, CBC, A1C #### [place] [address] #### B12, SPE #### [place] [address] RBC 4.43 10 6/mcL Normal 4.10-5.30 [facility] Comment on above: Performed By: #### T SH, 162930, FT4, ANEU, HFP, 983097, ADIFF, CBC, A1C #### [address] [address] #### B12, SPE #### [place] [address] WBC 8.3 10 3/mcL Normal 4.5-10.8 [facility] Comment on above: Performed By: #### T SH, 653828, FT4, ANEU, HFP, 245704, ADIFF, CBC, A1C #### [place] [address] #### B12, SPE #### [place] [address] FT4on 02-05-2024 Free T4 [Mass/Vol] 1.20 ng/dL Normal 0.76-1.46 [facility] Comment on above: Performed By: #### T SH, 837448, FT4, ANEU, HFP, 718232, ADIFF, CBC, A1C #### [place] [address] #### B12, SPE #### [place] [address] HFPon 02-05-2024 Bili Indirect 0.5 mg/dL Normal [facility] Comment on above: Performed By: #### T SH, 956806, FT4, ANEU, HFP, 709897, ADIFF, CBC, A1C #### [place] [address] #### B12, SPE #### [place] [address] Albumin Level 3.4 G/dL Low 3.5-5.0 [facility] Comment on above: Performed By: #### T SH, 697948, FT4, ANEU, HFP, 597979, ADIFF, CBC, A1C #### [place] [address] #### B12, SPE #### [place] [address] Albumin/Globulin [Mass ratio] 1.0 {ratio} Low 1.1-2.5 [facility] Comment on above: Performed By: #### T SH, 403643, FT4, ANEU, HFP, 509690, ADIFF, CBC, A1C #### [place] [address] #### B12, SPE #### [place] [address] ALP [Catalytic activity/Vol] 100 U/L Normal 40-135 [facility] Comment on above: Performed By: #### T OMAR, 662532, FT4, ANEU, HFP, 240178, ADIFF, CBC, A1C #### [place] [address] #### B12, SPE #### [place] [address] ALT [Catalytic activity/Vol] 32 U/L Normal 14-59 [facility] Comment on above: Performed By: #### T SH, 539935, FT4, ANEU, HFP, 880991, ADIFF, CBC, A1C #### [place] [address] #### B12, SPE #### [place] [address] AST [Catalytic activity/Vol] 14 U/L Normal 10-40 [facility] Comment on above: Performed By: #### T SH, 158102, FT4, ANEU, HFP, 067526, ADIFF, CBC, A1C #### [place] [address] #### B12, SPE #### [place] [id number] Bili Direct 0.1 mg/dL Normal 0.0-0.2 [facility] Comment on above: Result Comment: Use of this assay is not recommended for patients undergoing treatment with eltrombopag due to the potential for falsely elevated results. Performed By: #### T SH, 011892, FT4, ANEU, HFP, 704922, ADIFF, CBC, A1C #### [place] [address] #### B12, SPE #### [place] [address] Bili Total 0.6 mg/dL Normal 0.2-1.0 [facility] Comment on above: Result Comment: Use of this assay is not recommended for patients undergoing treatment with eltrombopag due to the potential for falsely elevated results. Performed By: #### T SH, 018626, FT4, ANEU, HFP, 561200, ADIFF, CBC, A1C #### [place] [address] #### B12, SPE #### [place] [address] Globulin 3.3 G/dL Normal [facility] Comment on above: Performed By: #### T SH, 469335, FT4, ANEU, HFP, 974533, ADIFF, CBC, A1C #### [place] [address] #### B12, SPE #### [place] [address] Total Protein 6.7 G/dL Normal 6.4-8.2 [facility] Comment on above: Performed By: #### T SH, 911051, FT4, ANEU, HFP, 569638, ADIFF, CBC, A1C #### [place] [address] #### B12, SPE #### [place] [address] LABORATORYOrdered By: SYSTEM SYSTEM on 02-05-2024 Albumin BCP dye [Mass/Vol] 3.4 G/dL Low 3.5 - 5.0 G/dL AO ADM SS Albumin/Globulin [Mass ratio] 1.0 {ratio} Low 1.1 - 2.5 ratio AO ADM SS ALP [Catalytic activity/Vol] 100 U/L Normal 40 - 135 U/L AO ADM SS ALT With P-5'-P [Catalytic activity/Vol] 32 U/L Normal 14 - 59 U/L AO ADM SS AST With P-5'-P [Catalytic activity/Vol] 14 U/L Normal 10 - 40 U/L AO ADM SS Basophils (Bld) [#/Vol] 0.1 103/mcL Normal 0.0 - 0.2 10^3/mcL AO Workflow SS Basophils/100 WBC (Bld) 0.7 % Normal 0.0 - 2.5 % AO Workflow SS Bilirubin [Mass/Vol] 0.6 mg/dL Normal 0.2 - 1 .0 mg/dL AO ADM SS Comment on above: Interpretive Data: U se of this assay is not recommended for patients undergoing treatment with eltrombopag due to the potential for falsely elevated results. Bilirubin.direct [Mass/Vol] 0.1 mg/dL Normal 0.0 - 0.2 mg/dL AO ADM SS Comment on above: Interpretive Data: U se of this assay is not recommended for patients undergoing treatment with eltrombopag due to the potential for falsely elevated results. Bilirubin.direct [Mass/Vol] 0.5 mg/dL Invalid Interpretation Code AO Chemistry S Cobalamin (Vitamin B12) [Mass/Vol] 462 pg/mL Normal 211 - 911 pg/mL AH ADM SS Eosinophil, Absolute 0.4 103/mcL Normal 0.0 - 0 .7 10^3/mcL AO Workflow SS Eosinophils/100 WBC (Bld) 4.9 % Normal 0.0 - 7.0 % AO Workflow SS Erythrocyte distribution width (RBC) [Ratio] 12.7 % Normal 11.5 - 15.5 % AO Workflow SS Free T4 [Mass/Vol] 1.20 ng/dL Normal 0.76 - 1. 46 ng/dL AO ADM SS Globulin 3.3 G/dL Invalid Interpretation Code AO ADM SS Glucose [Mass/Vol] 151 mg/dL Invalid Interpretation Code AO Chemistry S Comment on above: Interpretive Data: E stimated average glucose (eAG) is a calculated value from Hemoglobin A1C and is product sales representative of the average blood glucose level in the last 2-3 month period. Normal range: less than 114 mg/dL HbA1c (Bld) [Mass fraction] 6.9 % High 4.3 - 6.4 % AO ADM SS Hematocrit (Bld) [Volume fraction] 40.0 % Normal 34.0 - 46.0 % AO Workflow SS Hemoglobin (Bld) [Mass/Vol] 13.6 G/dL Normal 12.0 - 16.0 G/dL AO Workflow SS Lymphocytes (Bld) [#/Vol] 1.2 103/mcL Normal 0.9 - 4.3 10^3/mcL AO Workflow SS Lymphocytes/100 WBC (Bld) 14.0 % Low 20.0 - 40.0 % AO Workflow SS MCH (RBC) [Entitic mass] 30.8 pg Normal 27. 0 - 33.0 pg AO Workflow SS MCHC 34.1 G/dL Normal 32.0 - 36.0 G/dL AO Workflow SS MCV (RBC) [Entitic vol] 90.4 fL Normal 80.0 - 99.0 fL AO Workflow SS Monocytes (Bld) [#/Vol] 0.6 103/mcL Normal 0.1 - 1.4 10^3/mcL AO Workflow SS Monocytes/100 WBC (Bld) 7.6 % Normal 2.0 - 13.0 % AO Workflow SS Neutrophils (Bld) [#/Vol] 6.0 103/mcL Normal 2.3 - 8.1 10^3/mcL AO Workflow SS Neutrophils/100 WBC (Bld) 72.8 % Normal 50.0 - 75.0 % AO Workflow SS Platelet mean volume (Bld) [Entitic vol] 7.7 fL Normal 6.6 - 10.5 fL AO Workflow SS Platelets (Bld) [#/Vol] 280 103/mcL Normal 150 - 450 10^3/mcL AO Workflow SS RBC (Bld) [#/Vol] 4.43 106/mcL Normal 4.10 - 5.3 0 10^6/mcL AO Workflow SS TSH Qn 6.13 m[IU]/L High 0.36 - 3.74 mcIU/mL AO ADM SS WBC (Bld) [#/Vol] 8.3 103/mcL Normal 4.5 - 10.8 10^3/mcL AO Workflow SS Laboratory - Chemistry and C hemistry - challengeOrdered By: SYSTEM SYSTEM on 02-05-2024 Protein [Mass/Vol] 6.7 G/dL Normal 5.7 - 8.2 G/dL AO ADM SS Comment on above: Interpretive Data: * *Note - New Reference Range in effect 19 SPEon 02-05-2024 Total Protein 6.7 G/dL Normal 5.7-8.2 [facility] Comment on above: Result Comment: No te - New Reference Range in effect 19 Performed By: #### E SR, CK, CRP #### [address] [address] TSHon 02-05-2024 TSH Qn 6.13 m[IU]/L High 0.36-3.74 [facility] Comment on above: Performed By: #### T SH, 288789, FT4, ANEU, HFP, 830780, ADIFF, CBC, A1C #### [address] [address] #### B12, SPE #### [place] [address] XXLYL1po 12-24-2023 Class Description Comment Normal [facility] ([place]) Comment on above: Result Comment: Levels of Specific IgE Class Description of Class ----- < 0.10 0 Negative 0.10 - 0.31 0/I Equivocal/Low 0.32 - 0.55 I Low 0.56 - 1.40 II Moderate 1.41 - 3.90 III High 3.91 - 19.00 IV Very High 19.01 - 100.00 V Very High >100.00 Very High Performed By: #### G LIAD, TCANC, ENDO, FERR, CRP, 930113 #### [place] [address] IgE Alternaria alternata M006 <0.10 Normal Class 0 [facility] ([place]) Comment on above: Performed By: #### G LIAD, TCANC, ENDO, FERR, CRP, 722091 #### [place] [address] IgE Adalberto White T015 <0.10 Normal Class 0 [facility] ([place]) Comment on above: Performed By: #### G LIAD, TCANC, ENDO, FERR, CRP, 302247 #### [place] [address] IgE Aspergillus fumigatus M003 <0.10 Normal Class 0 [facility] ([place] Comment on above: Performed By: #### G LIAD, TCANC, ENDO, FERR, CRP, 636892 #### [place] [address] IgE B[place] Grass G002 <0.10 Normal Class 0 [facility] ([place] Comment on above: Performed By: #### G LIAD, TCANC, ENDO, FERR, CRP, 888299 #### [place] [address] IgE Cat Dander E001 <0.10 Normal Class 0 [facility] ([place] Comment on above: Performed By: #### G LIAD, TCANC, ENDO, FERR, CRP, 208034 #### [place] [address] IgE [place] T006 <0.10 Normal Class 0 [facility] ([place] Comment on above: Performed By: #### G LIAD, TCANC, ENDO, FERR, CRP, 991910 #### [place] [address] IgE Cladosporium herbarum M002 <0.10 Normal Class 0 [facility] ([place] Comment on above: Performed By: #### G LIAD, TCANC, ENDO, FERR, CRP, 382819 #### [place] [address] IgE Cockroach [place]i I006 <0.10 Normal Class 0 [facility] ([place] Comment on above: Performed By: #### G LIAD, TCANC, ENDO, FERR, CRP, 520445 #### [place] [address] IgE Common Silver [place]ch T003 <0.10 Normal Class 0 [facility] ([place] Comment on above: Performed By: #### G LIAD, TCANC, ENDO, FERR, CRP, 759477 #### [place] [address] IgE Rock T014 <0.10 Normal Class 0 [facility] ([place] Comment on above: Performed By: #### G LIAD, TCANC, ENDO, FERR, CRP, 700896 #### [place] [address] IgE D farinae D002 <0.10 Normal Class 0 [facility] ([place] Comment on above: Performed By: #### G LIAD, TCANC, ENDO, FERR, CRP, 354018 #### [place] [address] IgE D pteronyssinus D001 <0.10 Normal Class 0 [facility] ([place] Comment on above: Performed By: #### G LIAD, TCANC, ENDO, FERR, CRP, 912386 #### [place] [address] IgE Dog Dander E005 <0.10 Normal Class 0 [facility] ([place] Comment on above: Performed By: #### G LIAD, TCANC, ENDO, FERR, CRP, 735728 #### [place] [address] IgE Elm Israeli T008 <0.10 Normal Class 0 [facility] ([place]) Comment on above: Performed By: #### G LIAD, TCANC, ENDO, FERR, CRP, 938558 #### [place] [address] IgE Maple [place] T011 <0.10 Normal Class 0 [facility] ([place] Comment on above: Performed By: #### G LIAD, TCANC, ENDO, FERR, CRP, 670804 #### [place] [address] IgE Maple/Alcorn T001 <0.10 Normal Class 0 [facility] ([place] Comment on above: Performed By: #### G LIAD, TCANC, ENDO, FERR, CRP, 375843 #### [place] [id number] IgE Mouse Urine E072 <0.10 Normal Class 0 [facility] ([place]) Comment on above: Result Comment: Perf ormed At: [facility] [id number] Michael Mesa MD Ph:[phone] Performed By: #### G LIAVipin, TCANC, ENDO, FERR, CRP, 818018 #### [place] [address] IgE [place] White T007 <0.10 Normal Class 0 [facility] ([place] Comment on above: Performed By: #### G LIAVipin, TCANC, ENDO, FERR, CRP, 284624 #### [place] [address] IgE Kate Kimry T022 0.14 kunits/L Abnormal Class 0/I [facility] ([place]) Comment on above: Performed By: #### G SHELIA, TCANC, ENDO, FERR, CRP, 351848 #### [place] [address] IgE Penicillium chrysogen M001 <0.10 Normal Class 0 [facility] ([place] Comment on above: Performed By: #### G LIAVipin, TCANC, ENDO, FERR, CRP, 506415 #### [address] [address] IgE Pigweed Common W014 <0.10 Normal Class 0 [facility] ([place]) Comment on above: Performed By: #### G LIAVipin, TCANC, ENDO, FERR, CRP, 268354 #### [place] [id number] IgE Ragweed Short W001 <0.10 Normal Class 0 [facility] ([place] Comment on above: Performed By: #### G LIAVipin, TCANC, ENDO, FERR, CRP, 499395 #### [place] [address] IgE Sheep [place] W018 <0.10 Normal Class 0 [facility] ([place] Comment on above: Performed By: #### G LIAD, TCANC, ENDO, FERR, CRP, 211720 #### [address] [address] IgE Thistle Montserratian W011 <0.10 Normal Class 0 [facility] ([place] Comment on above: Performed By: #### G LIAD, TCANC, ENDO, FERR, CRP, 625578 #### [address] [address] IgE Abel Grass G006 <0.10 Normal Class 0 [facility] ([place] Comment on above: Performed By: #### G LIAD, TCANC, ENDO, FERR, CRP, 365351 #### [place] [address] IgE Total 5 IU/mL Low 6-495 [facility] ([place] Comment on above: Performed By: #### G LIAD, TCANC, ENDO, FERR, CRP, 199652 #### [place] [address] IgE [place] T010 <0.10 Normal Class 0 [facility] ([place] Comment on above: Performed By: #### G LIAD, TCANC, ENDO, FERR, CRP, 511341 #### [place] [address] IgE White [place] T070 <0.10 Normal Class 0 [facility] ([place] Comment on above: Performed By: #### G LIAD, TCANC, ENDO, FERR, CRP, 243372 #### [place] [address] DNAon 12-23-2023 ds DNA Ab Neg 10 Normal Neg 10 [facility] ([place] Comment on above: Result Comment: DNA Screen and Titer methodology is an immunofluorescent technique utilizing Crithidia luciliae Substrate. Performed By: #### G LIAD, TCANC, ENDO, FERR, CRP, 610650 #### [place] [address] FOODADon 12-21-2023 Class Description Comment Normal [facility] ([place] Comment on above: Result Comment: Levels of Specific IgE Class Description of Class ----- < 0.10 0 Negative 0.10 - 0.31 0/I Equivocal/Low 0.32 - 0.55 I Low 0.56 - 1.40 II Moderate 1.41 - 3.90 III High 3.91 - 19.00 IV Very High 19.01 - 100.00 V Very High >100.00 Very High Performed By: #### G LIAD, TCANC, ENDO, FERR, CRP, 720242 #### [place] [address] IgE Clam F207 <0.10 Normal Class 0 [facility] ([place] Comment on above: Performed By: #### G LIAD, TCANC, ENDO, FERR, CRP, 499644 #### [place] [address] IgE Codfish F003 <0.10 Normal Class 0 [facility] ([place] Comment on above: Performed By: #### G LIAD, TCANC, ENDO, FERR, CRP, 147711 #### [place] [address] IgE [place] F008 <0.10 Normal Class 0 [facility] [place] Comment on above: Performed By: #### G LIAD, TCANC, ENDO, FERR, CRP, 349530 #### [place] [address] IgE Egg White F001 <0.10 Normal Class 0 [facility] ([place] Comment on above: Performed By: #### G LIAD, TCANC, ENDO, FERR, CRP, 736274 #### [place] [address] IgE Milk F002 <0.10 Normal Class 0 [facility] ([place] Comment on above: Performed By: #### G LIAD, TCANC, ENDO, FERR, CRP, 619795 #### [place] [address] IgE Peanut F013 <0.10 Normal Class 0 [facility] ([place] Comment on above: Performed By: #### G LIAD, TCANC, ENDO, FERR, CRP, 535787 #### [place] [address] IgE Scallop F338 <0.10 Normal Class 0 [facility] [place] Comment on above: Performed By: #### G LIAD, TCANC, ENDO, FERR, CRP, 774700 #### [place] [address] IgE Sesame Seed F010 <0.10 Normal Class 0 [facility] ([place] Comment on above: Result Comment: Perf ormed At: [facility] [address] [id number] Michael Mesa MD Ph:[phone] Performed By: #### G LIAD, TCANC, ENDO, FERR, CRP, 716801 #### [place] [address] IgE Shrimp F024 <0.10 Normal Class 0 [facility] [place] Comment on above: Performed By: #### G LIAD, TCANC, ENDO, FERR, CRP, 596746 #### [place] [address] IgE Soybean F014 <0.10 Normal Class 0 [facility] [place] Comment on above: Performed By: #### G LIAD, TCANC, ENDO, FERR, CRP, 811580 #### [place] [address] IgE [place] F256 <0.10 Normal Class 0 [facility] ([place] Comment on above: Performed By: #### G LIAD, TCANC, ENDO, FERR, CRP, 424335 #### [place] [address] IgE Wheat F004 <0.10 Normal Class 0 [facility] ([place] Comment on above: Performed By: #### G LIAD, TCANC, ENDO, FERR, CRP, 372799 #### [place] [address] ENDOon 08-15-2024 TTG Ab (IgA) <4.0 Normal <=3.9 [facility] ([place]) Comment on above: Result Comment: Mariel ctive 11/26/2022: Evaluation of Transglutaminase Ab (IgA) results: Negative: Less than 4.0 Weak positive: 4.0 to 10.0 Positive: Greater than 10.0 Transglutaminase Ab is present in approximately 95% to 100% of patients with celiac disease and 80% of patients with dermatitis herpetiformis. The antibody is rarely found in other conditions. Transglutaminase Ab levels will decrease or increase depending on the removal or reintroduction of gluten into the diet. Patients who are IgA deficient develop celiac disease more frequently than individuals who have an intact IgA system. Therefore, gliadin and transglutaminase IgA antibodies may be absent in patients with celiac disease. IgG antibodies to gliadin are especially helpful in IgA deficient patients. These test results were obtained with the [employer] QUANTA Lite R-tTG IgA SARA. R-tTG IgA values obtained with different manufacturers' assay methods may not be used interchangeably. Performed By: #### G LIAD, TCANC, ENDO, FERR, CRP, 097370 #### [place] [address] GLIADon 12-17-2023 Gliadin Ab IgA <20 Normal <=19 [facility] ([place]) Comment on above: Result Comment: Glia din IgG and IgA Ab Interpretation (effective 03/31/07): Result Units Negative <20 Weak Positive 20-30 Moderate to Strong Positive >30 Both IgG and IgA antibodies to gliadin are present in most patients with celiac disease (CD). However, antibody to gliadin may be present in Crohn's disease, dermatitis herpetiformis or in subjects with no clinical evidence of intestinal disease. In healthy individuals with a family history of CD, the antibodies may precede the clinical onset of disease in approximately 25% of the subjects. Gliadin antibody levels will decrease or increase depending on the removal or reintroduction of gluten into the diet. Patients who are IgA deficient develop celiac disease more frequently than individuals who have an intact IgA system. Therefore, gliadin and transglutaminase IgA antibodies may be absent in patients with celiac disease. IgG antibodies to gliadin are especially helpful in IgA deficient patients. A negative result indicates no gliadin antibody or levels below the negative cut-off of the assay. Results of this assay should be used in conjunction with clinical findings and other serological tests. These test results were obtained with the [employer] QUANTA Lite Gliadin IgG II and Gliadin IgA II. Gliadin values obtained with different manufacturers' assay methods may not be used interchangeably. Performed By: #### G LIAD, TCANC, ENDO, FERR, CRP, 013313 #### [address] [address] Gliadin Ab IgG <20 Normal <=19 [facility] ([place] Comment on above: Result Comment: Glia din IgG and IgA Ab Interpretation (effective 03/31/07): Result Units Negative <20 Weak Positive 20-30 Moderate to Strong Positive >30 Both IgG and IgA antibodies to gliadin are present in most patients with celiac disease (CD). However, antibody to gliadin may be present in Crohn's disease, dermatitis herpetiformis or in subjects with no clinical evidence of intestinal disease. In healthy individuals with a family history of CD, the antibodies may precede the clinical onset of disease in approximately 25% of the subjects. Gliadin antibody levels will decrease or increase depending on the removal or reintroduction of gluten into the diet. Patients who are IgA deficient develop celiac disease more frequently than individuals who have an intact IgA system. Therefore, gliadin and transglutaminase IgA antibodies may be absent in patients with celiac disease. IgG antibodies to gliadin are especially helpful in IgA deficient patients. A negative result indicates no gliadin antibody or levels below the negative cut-off of the assay. Results of this assay should be used in conjunction with clinical findings and other serological tests. These test results were obtained with the INOVA QUANTA Lite Gliadin IgG II and Gliadin IgA II. Gliadin values obtained with different manufacturers' assay methods may not be used interchangeably. Performed By: #### G LIAD, TCANC, ENDO, FERR, CRP, [id number] #### [address] [address] CRPon 12-16-2023 C-Reactive Protein 0.9 mg/dL Normal 0.0-1.0 [facility] ([place]) Comment on above: Result Comment: No te - New Reference Range in effect 19 Performed By: #### G LIAD, TCANC, ENDO, FERR, CRP, [id number] #### [address] [address] Tova 12-16-2023 Ferritin [Mass/Vol] 129.0 ng/mL Normal 8.0-252.0 [facility] ([place]) Comment on above: Performed By: #### G LIAD, TCANC, ENDO, FERR, CRP, [id number] #### [place] [address] TCANCon 12-16-2023 Test cancelled: A1C Normal [facility] ([place]) Comment on above: Performed By: #### G LIAD, TCANC, ENDO, FERR, CRP, [id number] #### [place] [address] CIRANon 10-16-2023 Dil Filiberto Viper Venom 53.0 seconds High 30.0-42.0 [facility] ([place]) Comment on above: Result Comment: DRVV T Confirmation Test Performed: POSITIVE Performed By: #### G LIAD, TCANC, ENDO, FERR, CRP, [id number] #### [place] [address] [place] Interpretation See Below Normal [facility] ([place]) Comment on above: Result Comment: Lupu s Anticoagulant DETECTED by DRVVT method. Note: specimen was not rec'd frozen from [place] transport to [facility] lab; results may be affected. Performed By: #### G LIAD, TCANC, ENDO, FERR, CRP, [id number] #### [place] [address] Platelet neutraliz. Not Done Normal [facility] ([place]) Comment on above: Performed By: #### G LIAD, TCANC, ENDO, FERR, CRP, [id number] #### [place] [id number] 10-10-2023 B2 Glyco I IgG Ab <9 Normal 0-20 [facility] ([place]) Comment on above: Result Comment: The reference interval reflects a 3SD or 99th percentile interval, which is thought to represent a potentially clinically significant result in accordance with the International Consensus Statement on the classification criteria for definitive antiphospholipid syndrome (APS). J Thromb Haem 2006;4:295-306. Performed By: #### G LIAD, TCANC, ENDO, FERR, CRP, [id number] #### [place] [address] B2 Glyco I IgM Ab 36 GPI IgM units High 0-32 A [facility] ([place]) Comment on above: Result Comment: The reference interval reflects a 3SD or 99th percentile interval, which is thought to represent a potentially clinically significant result in accordance with the International Consensus Statement on the classification criteria for definitive antiphospholipid syndrome (APS). J Thromb Haem 2006;4:295-306. Performed At: [address] [id number] Michael Mesa MD Ph:[phone] Performed By: #### G LIAD, TCANC, ENDO, FERR, CRP, [id number] #### [address] 10-08-2023 Cardiolipin IgA <9 Normal 0-11 [facility] ([place]) Comment on above: Result Comment: Nega tive: <12 Indeterminate: 12 - 20 Low-Med Positive: >20 - 80 High Positive: >80 Performed At: [address] [id number] Blanca Lord PhD Ph:[phone] Performed By: #### G LIAD, TCANC, ENDO, FERR, CRP, [id number] #### [address] 10-08-2023 Cardiolipin IgG 9 GPL U/mL Normal 0-14 [facility] ([place]) Comment on above: Result Comment: Nega tive: <15 Indeterminate: 15 - 20 Low-Med Positive: >20 - 80 High Positive: >80 Performed At: [address] [id number] Blanca Lord PhD Ph:[phone] Performed By: #### G LIAD, TCANC, ENDO, FERR, CRP, [id number] #### [address] 10-08-2023 Cardiolipin IgM 74 MPL U/mL High 0-12 [facility] ([place]) Comment on above: Result Comment: Nega tive: <13 Indeterminate: 13 - 20 Low-Med Positive: >20 - 80 High Positive: >80 Performed At: [facility] [id number] Blanca Lord PhD Ph:[phone] Performed By: #### G LIAD, TCANC, ENDO, FERR, CRP, [id number] #### [facility] [address] [place] [address] No Panel Informationon 09-11 BLANK _ [facility] Implant Date 09/11/2023 [facility] CHECKon AV Delay Adaptive Paced Minimum (ms) 180 ms [facility] AV Delay Adaptive Sensed Minimum (ms) 150 ms [facility] AV Delay Adaptive Status DISABLED [facility] Battery Voltage (volts) 3.15 V [facility] Lm RA Pacing Amplitude (volts) 3.5 V [facility] Lm RA Pacing Polarity BI [facility] Lm RA Pacing Pulse Width (ms) 0.4 ms [facility] Lm RA Sensing Amplitude (mvolts) 0.3 mV [facility] Lm RA Sensing Blanking Period (ms) 150 ms [facility] Lm RA Sensing Polarity BI [facility] Lm RA Sensing Refractory Period (ms) Auto [facility] Lm RV Pacing Amplitude (volts) 3.5 V [facility] Lm RV Pacing Polarity BI [facility] Lm RV Pacing Pulse Width (ms) 0.4 ms [facility] Lm RV Sensing Amplitude (mvolts) 0.9 mV [facility] Lm RV Sensing Blanking Period (ms) 200 ms [facility] Lm RV Sensing Polarity BI [facility] Hysteresis Rate (bpm) DISABLED [facility] Lead1 Mfg [facility] Lead2 Mfg [facility] Location RV [facility] Location RA [facility] Lower Rate (bpm) 60 {beats}/min [facility] Max Sensor Rate (bmp) 140 {beats}/min [facility] Model [id number] Ema XT DR MRI Cl [facility] Model 3830-69 [facility] Model 5076-52 Capsurefix Novus [facility] Pacemaker Dependent? NO [facility] Pacing Mode DDDR [facility] PM-Device Mfg MDT [facility] PM-Percent Pacing (A) 51.56 % [facility] PM-Percent Pacing (V) 98.61 % [facility] PM-PMT Intervention ENABLED [facility] PM-PVC Intervention ENABLED [facility] PM-Rate Modulation Acceleration Reaction 30 s [facility] PM-Rate Modulation ADL Rate (bpm) 95 {beats}/min [facility] PM-Rate Modulation Deceleration Exercise [facility] PM-Rate Modulation [place] 3 [facility] PM-Rate Modulation Threshold Low [facility] RA Bipolar Impedance ohms 456 ohm [facility] RA Unipolar Impedance ohms 361 ohm [facility] Rhythm Sinus bradycardia at 58 BPM [facility] RV Bipolar Impedance ohms 532 ohm [facility] RV Unipolar Impedance 342 ohm [facility] Serial Number [id number] [facility] Serial Number [id number] [facility] Serial Number [id number] [facility] Thresh RA Capture Amplitude (volts) 0.5 V [facility] Thresh RA Capture Duration (ms) 0.4 ms [facility] Thresh RA Sensing Amplitude (mvolts) 5.125 mV [facility] Thresh RV Capture Amplitude (volts) 0.5 V [facility] Thresh RV Capture Duration (ms) 0.4 ms [facility] Thresh RV Sensing Amplitude (mvolts) 13.375 mV [facility] Tracking Rate (bpm) 140 {beats}/min [facility] PPM check, dual lead system with programming. Patient ID x 2. PM check 1st day post implant. AQUACEL drsg intact left pectoral area. No hematoma or drainage noted. Presenting rhythm AP/TENTERER at 60 BPM. No vent high rate or mode switch events. Measurements stable. EGM's without noise. No changes made. Teaching completed to patent and spouse, Tyson. Carelink monitor reviewed and given. Follow up in [place]. Will fax this report to that office. Joel EARL NOTE TO PROVIDERS: "CARD" Flowsheets contain detailed device programming and testing data. Paceart/Interrogation PDF can be found under CARDIAC DATA AND REPORT, "Scanned Documents" section. PACEART 09/12/2023 Formattin g of this note might be different from the original. PPM check, dual lead system with programming. Patient ID x 2. PM check 1st day post implant. AQUACEL drsg intact left pectoral area. No hematoma or drainage noted. Presenting rhythm AP/TENTERER at 60 BPM. No vent high rate or mode switch events. Measurements stable. EGM's without noise. No changes made. Teaching completed to patent and spouse, Tyson. Carelink monitor reviewed and given. Follow up in [place]. Will fax this report to that office. Joel RN NOTE TO PROVIDERS: "CARD" Flowsheets contain detailed device programming and testing data. Paceart/Interrogation PDF can be found under CARDIAC DATA AND REPORT, "Scanned Documents" section. [facility] ECG B/O W INTERP (MED OFFICE )on 09-05-2023 Normal sinus rhythm with a ventricular rate of 72. [facility] Absolute lymphocyte countOrd ered By: Milvia Negron on 09-03-2023 Lymphocytes Auto (Unsp spec) [#/Vol] 1.63 10*3/uL 0.83-4.51 [facility] Automated lymphocyte count a s percentage of total leukocytesOrdered By: Milvia Negron on 09-03-2023 Lymphocytes/100 WBC Auto (Unsp spec) 19.6 % 19-41 [facility] Basophil percentageOrdered B y: Milvia Negron on 09-03-2023 Basophils/100 WBC (Bld) 0.8 % 0-1 [facility] Bilirubin [Mass/Vol] 0.70 mg/dL 0.20-1.00 [facility] Comment on above: For patients on eltr ombopag therapy, use of Dimension [place] TBIL is not recommended. Chloride [Moles/Vol] 103 mmol/L 98-107 [facility] Eosinophils/100 WBC (Bld) 4.6 % 0-5 [facility] Glucose [Mass/Vol] 214 mg/dL 74-106 [facility] Comment on above: Glucose result great er than or equal to 200 mg/dLsuggests DIABETES MELLITUS per A.D.A. criteria. Hemoglobin (Bld) [Mass/Vol] 13.7 g/dL 12.0-15.0 [facility] Monocytes/100 WBC (Bld) 7.0 % 0-10 [facility] Neutrophils (Bld) [#/Vol] 5.6 10*3/uL 2.0-7.7 [facility] Neutrophils/100 WBC (Bld) 67.6 % 47-70 [facility] Potassium [Moles/Vol] 3.8 mmol/L 3.5-5.1 [facility] Protein [Mass/Vol] 7.3 g/dL 6.4-8.2 [facility] Sodium [Moles/Vol] 135 mmol/L 136-145 [facility] WBC (Bld) [#/Vol] 8.3 10*3/uL 4.4-11.0 [facility] Determination of erythrocyte mean corpuscular volume (MCV)Ordered By: Milvia Negron on 09-03-2023 MCV (RBC) [Entitic vol] 88.9 fL 81-99 [facility] Erythrocyte distribution wid th ratioOrdered By: Milvia Negron on 09-03-2023 Erythrocyte distribution width (RBC) [Ratio] 12.4 % 11.6-14.6 [facility] Erythrocyte distribution wid th standard deviationOrdered By: Milvia Negron on 09-03-2023 Erythrocyte distribution width (RBC) [Entitic vol] 40.5 fL 35.1-43.9 [facility] Hematocrit Auto (Bld) [Volum e fraction]Ordered By: Milvia Negron on 09-03-2023 Hematocrit (Bld) [Volume fraction] 41.6 % 37-47 [facility] Immature granulocytes/100 WB C Auto (Bld)Ordered By: Milvia Negron on 09-03-2023 Immature granulocytes/100 WBC (Bld) 0.400 % 0.0-0.9 [facility] Comment on above: IG% - Immature Granu locytes (promyelocytes, myelocytes and metamyelocytes) > 1% indicates that a LEFT SHIFT is Present. Laboratory - Chemistry and C hemistry - challengeOrdered By: Milvia Negron on 09-03-2023 Albumin/Globulin [Mass ratio] 0.9 {ratio} 0.9-2.4 [facility] ALP [Catalytic activity/Vol] 79 U/L 45-117 [facility] ALT [Catalytic activity/Vol] 27 U/L 13-56 [facility] CO2 [Moles/Vol] 25.0 mmol/L 21.0-32.0 [facility] Globulin (S) [Mass/Vol] 3.9 g/dL 2.2-4.2 [facility] Natriuretic peptide B (Bld) [Mass/Vol] 34.9 pg/mL 0-100 [facility] Urea nitrogen/Creatinine [Mass ratio] 15.2 mg/mg 10-20 [facility] Laboratory - Hematology and Cell countsOrdered By: Milvia Negron on 09-03-2023 MCH (RBC) [Entitic mass] 29.3 pg 27.0-32.0 [facility] MCHC (RBC) [Mass/Vol] 32.9 g/dL 32-36 [facility] Nucleated RBC/100 WBC (Bld) [Ratio] 0 % 0-5 [facility] Platelet mean volume (Bld) [Entitic vol] 9.9 fL 6.2-12.0 [facility] Platelets (Bld) [#/Vol] 296 10*3/uL 150-450 [facility] No Panel InformationOrdered By: Milvia Negron on 09-03-2023 Estimated GFR (MDRD) Amer 121 mL/min >60 [facility] Comment on above: GFR Calc Estimated GFR (MDRD) Non-Af Amer 100 mL/min >60 [facility] Comment on above: Non- GFR Calc RBC Auto (Bld) [#/Vol]Ordere d By: Milvia Negron on 09-03-2023 RBC (Bld) [#/Vol] 4.68 10*6/uL 4.2-5.4 [facility] Serum or plasma calcium danna urement (mass/volume)Ordered By: Milvia Negron on 09-03-2023 Calcium [Mass/Vol] 8.9 mg/dL 8.5-10.1 [facility] Serum or plasma creatinine m easurement (mass/volume)Ordered By: Milvia Negron on 09-03-2023 Creatinine [Mass/Vol] 0.66 mg/dL 0.55-1.02 [facility] Comment on above: The validity of the calculated GFR & GFRAA in patients over 70 years has not been determined. Clinical correlation is essential. Serum or plasma urea nitroge n measurement (mass/volume)Ordered By: Milvia Negron on 09-03-2023 Urea nitrogen [Mass/Vol] 10 mg/dL 7-18 [facility] Thin prep Papanicolaou smear with manual screeningOrdered By: Milvia Negron on 09-03-2023 Thin prep Papanicolaou smear with manual screening 3.4 g/dL 3.2-5.0 [facility] Thin prep Papanicolaou smear with manual screening 18 U/L 15-37 [facility] Thin prep Papanicolaou smear with manual screening 7 5-15 [facility] .Auto Diffon 08-26-2023 Basophil, Absolute 0.1 10 3/mcL Normal 0.0-0.2 [facility] ([place]) Comment on above: Performed By: #### A ELIUD, CBC, HFP, ADIFF #### [address] [address] Basophils/100 WBC (Bld) 0.7 % Normal 0.0-2.5 [facility] ([place]) Comment on above: Performed By: #### A ELIUD, CBC, HFP, ADIFF #### [address] [address] Eosinophil, Absolute 0.5 10 3/mcL High 0.0-0.4 [facility] ([place]) Comment on above: Performed By: #### A ELIUD, CBC, HFP, ADIFF #### [address] [address] Eosinophils/100 WBC (Bld) 6.1 % Normal 0.0-7.0 [facility] ([place]) Comment on above: Performed By: #### A ELIUD, CBC, HFP, ADIFF #### [address] [address] Lymphocyte, Absolute 1.4 10 3/mcL Normal 0.8-3.9 [facility] ([place]) Comment on above: Performed By: #### A ELIUD, CBC, HFP, ADIFF #### [address] [address] Lymphocytes/100 WBC (Bld) 18.5 % Normal 10.0-50.0 [facility] ([place]) Comment on above: Performed By: #### A ELIUD, CBC, HFP, ADIFF #### [address] [address] Monocyte, Absolute 0.5 10 3/mcL Normal 0.2-1.0 [facility] ([place]) Comment on above: Performed By: #### A ELIUD, CBC, HFP, ADIFF #### [address] [address] Monocytes/100 WBC (Bld) 6.3 % Normal 1.7-13.0 [facility] ([place]) Comment on above: Performed By: #### A ELIUD, CBC, HFP, ADIFF #### [address] [address] Neutrophils/100 WBC (Bld) 68.4 % Normal 37.0-80.0 [facility] ([place]) Comment on above: Performed By: #### A ELIUD, CBC, HFP, ADIFF #### [address] [address] .NEUABSon 08-26-2023 Neutrophil, Absolute 5.3 10 3/mcL Normal 2.9-6.2 [facility] ([place]) Comment on above: Performed By: #### A ELIUD, CBC, HFP, ADIFF #### [address] [address] CBCon 08-26-2023 Erythrocyte distribution width (RBC) [Ratio] 12.9 % Normal 11.5-14.5 [facility] ([place]) Comment on above: Performed By: #### A ELIUD, CBC, HFP, ADIFF #### [address] [address] Hematocrit (Bld) [Volume fraction] 39.7 % Normal 37.0-47.0 [facility] ([place]) Comment on above: Performed By: #### A ELIUD, CBC, HFP, ADIFF #### [address] [address] Hgb 13.8 G/dL Normal 12.0-16.0 [facility] ([place]) Comment on above: Performed By: #### A ELIUD, CBC, HFP, ADIFF #### [address] [address] MCH (RBC) [Entitic mass] 30.6 pg Normal 27.0-31.2 [facility] ([place]) Comment on above: Performed By: #### A ELIUD, CBC, HFP, ADIFF #### [address] [address] MCHC 34.7 G/dL Normal 33.0-37.0 [facility] ([place]) Comment on above: Performed By: #### A ELIUD, CBC, HFP, ADIFF #### [address] [address] MCV (RBC) [Entitic vol] 88.1 fL Normal 80.0-94.0 [facility] ([place]) Comment on above: Performed By: #### A ELIUD, CBC, HFP, ADIFF #### [address] [address] Platelet 275 10 3/mcL Normal 130-400 [facility] ([place]) Comment on above: Performed By: #### A ELIUD, CBC, HFP, ADIFF #### [address] [address] Platelet mean volume (Bld) [Entitic vol] 7.7 fL Normal 7.4-10.4 [facility] ([place]) Comment on above: Performed By: #### A ELIUD, CBC, HFP, ADIFF #### [address] [address] RBC 4.50 10 6/mcL Normal 4.20-5.40 [facility] ([place]) Comment on above: Performed By: #### A ELIUD, CBC, HFP, ADIFF #### [address] [address] WBC 7.7 10 3/mcL Normal 4.6-10.8 [facility] ([place]) Comment on above: Performed By: #### A ELIUD, CBC, HFP, ADIFF #### [address] [address] HFPon 08-26-2023 Albumin Level 3.6 G/dL Normal 3.5-5.0 [facility] ([place]) Comment on above: Performed By: #### A ELIUD, CBC, HFP, ADIFF #### [address] [address] Albumin/Globulin [Mass ratio] 1.1 {ratio} Normal 1.1-2.5 [facility] ([place]) Comment on above: Performed By: #### A ELIUD, CBC, HFP, ADIFF #### [address] [address] ALP [Catalytic activity/Vol] 92 U/L Normal 40-135 [facility] ([place]) Comment on above: Performed By: #### A ELIUD, CBC, HFP, ADIFF #### [address] [address] ALT [Catalytic activity/Vol] 31 U/L Normal 14-59 [facility] ([place]) Comment on above: Performed By: #### A ELIUD, CBC, HFP, ADIFF #### [address] [address] AST [Catalytic activity/Vol] 21 U/L Normal 10-40 [facility] ([place]) Comment on above: Performed By: #### A ELIUD, CBC, HFP, ADIFF #### [address] [address] Bili Direct 0.2 mg/dL Normal 0.0-0.2 [facility] ([place]) Comment on above: Result Comment: Use of this assay is not recommended for patients undergoing treatment with eltrombopag due to the potential for falsely elevated results. Performed By: #### A ELIUD, CBC, HFP, ADIFF #### [address] [address] Bili Indirect 0.4 mg/dL Normal [facility] ([place]) Comment on above: Performed By: #### A ELIUD, CBC, HFP, ADIFF #### [address] [address] Bili Total 0.6 mg/dL Normal 0.2-1.0 [facility] ([place]) Comment on above: Result Comment: Use of this assay is not recommended for patients undergoing treatment with eltrombopag due to the potential for falsely elevated results. Performed By: #### A ELIUD, CBC, HFP, ADIFF #### [place] [address] [place], [place] [address] Globulin 3.2 G/dL Normal [facility] ([place]) Comment on above: Performed By: #### A ELIUD, CBC, HFP, ADIFF #### [place] [address] [place], [place] [address] Total Protein 6.8 G/dL Normal 6.4-8.2 [facility] ([place]) Comment on above: Performed By: #### A ELIUD, CBC, HFP, ADIFF #### [place] [address] [place], [place] [address] LABORATORYOrdered By: SYSTEM SYSTEM on 08-26-2023 Albumin BCP dye [Mass/Vol] 3.6 G/dL Normal 3.5 - 5.0 G/dL AO ADM SS Albumin/Globulin [Mass ratio] 1.1 {ratio} Normal 1.1 - 2.5 ratio AO ADM SS ALP [Catalytic activity/Vol] 92 U/L Normal 40 - 135 U/L AO ADM SS ALT With P-5'-P [Catalytic activity/Vol] 31 U/L Normal 14 - 59 U/L AO ADM SS AST With P-5'-P [Catalytic activity/Vol] 21 U/L Normal 10 - 40 U/L AO ADM SS Basophil, Absolute 0.1 103/mcL Normal 0.0 - 0.2 10^3/mcL AO Workflow SS Basophils/100 WBC (Bld) 0.7 % Normal 0.0 - 2.5 % AO Workflow SS Bilirubin [Mass/Vol] 0.6 mg/dL Normal 0.2 - 1 .0 mg/dL AO ADM SS Comment on above: Interpretive Data: U se of this assay is not recommended for patients undergoing treatment with eltrombopag due to the potential for falsely elevated results. Bilirubin.direct [Mass/Vol] 0.2 mg/dL Normal 0.0 - 0.2 mg/dL AO ADM SS Comment on above: Interpretive Data: U se of this assay is not recommended for patients undergoing treatment with eltrombopag due to the potential for falsely elevated results. Bilirubin.direct [Mass/Vol] 0.4 mg/dL Invalid Interpretation Code AO Chemistry S Eosinophil, Absolute 0.5 103/mcL High 0.0 - 0 .4 10^3/mcL AO Workflow SS Eosinophils/100 WBC (Bld) 6.1 % Normal 0.0 - 7.0 % AO Workflow SS Erythrocyte distribution width (RBC) [Ratio] 12.9 % Normal 11.5 - 14.5 % AO Workflow SS Globulin 3.2 G/dL Invalid Interpretation Code AO ADM SS Hematocrit (Bld) [Volume fraction] 39.7 % Normal 37.0 - 47.0 % AO Workflow SS Hemoglobin (Bld) [Mass/Vol] 13.8 G/dL Normal 12.0 - 16.0 G/dL AO Workflow SS Lymphocyte, Absolute 1.4 103/mcL Normal 0.8 - 3 .9 10^3/mcL AO Workflow SS Lymphocytes/100 WBC (Bld) 18.5 % Normal 10.0 - 50.0 % AO Workflow SS MCH (RBC) [Entitic mass] 30.6 pg Normal 27. 0 - 31.2 pg AO Workflow SS MCHC 34.7 G/dL Normal 33.0 - 37.0 G/dL AO Workflow SS MCV (RBC) [Entitic vol] 88.1 fL Normal 80.0 - 94.0 fL AO Workflow SS Monocyte, Absolute 0.5 103/mcL Normal 0.2 - 1.0 10^3/mcL AO Workflow SS Monocytes/100 WBC (Bld) 6.3 % Normal 1.7 - 13.0 % AO Workflow SS Neutrophil, Absolute 5.3 103/mcL Normal 2.9 - 6 .2 10^3/mcL AO Workflow SS Neutrophils/100 WBC (Bld) 68.4 % Normal 37.0 - 80.0 % AO Workflow SS Platelet mean volume (Bld) [Entitic vol] 7.7 fL Normal 7.4 - 10.4 fL AO Workflow SS Platelets (Bld) [#/Vol] 275 103/mcL Normal 130 - 400 10^3/mcL AO Workflow SS Protein [Mass/Vol] 6.8 G/dL Normal 6.4 - 8.2 G/dL AO ADM SS RBC (Bld) [#/Vol] 4.50 106/mcL Normal 4.20 - 5.4 0 10^6/mcL AO Workflow SS WBC (Bld) [#/Vol] 7.7 103/mcL Normal 4.6 - 10.8 10^3/mcL AO Workflow SS CT SPINE LUMBAR W/O CONTRAST on 07-02-2023 CT SPINE LUMBAR W/O CONTRAST ORIGINAL HISTORY: Cauda Martinez a syndrome COMPARISON: MR 01 December 2019. TECHNIQUE: Axial non-contrast CT of the lumbar spine, with sagittal and coronal reconstruction. This exam was performed according to our departmental dose optimization program, and includes the following measures where applicable: automated exposure control, adjustment of the mAs and/or kVp according to patient size and/or exam, and an iterative reconstruction algorithm. FINDINGS: There are 5 lumbar type vertebral bodies counting from the last visible rib. There is mild grade 1 anterolisthesis at L4-L5. The individual vertebral bodies are intact. Disc spaces appear mostly maintained. The paraspinous tissues are unremarkable in appearance. Specific findings by level: L3-L4: There is mild facet and ligamentum flavum hypertrophy. L4-L5: There is a mild posterior disc bulge. There is facet and ligamentum flavum hypertrophy, likely with mild stenosis. L5-S1: There is mild facet hypertrophy. IMPRESSION: Mild lower lumbar degenerative changes; possible mild stenosis at L4-L5. Interpreted by: Sha Gaitan MD Preliminary Report By: Sha Gaitan MD Electronically signed By Sha Gaitan MD Dictated Date: 07/02/2023 3:59:38 PM Prelim Date: 07/02/2023 4:01:10 PM Sign Date: 07/02/2023 4:01:10 PM Ordering Provider: BERNARD ACUÑA [facility] ([place]) Laboratory - Hematology and Cell countson 06-27-2023 HbA1c (Bld) [Mass fraction] 9.1 % [facility] No Panel Informationon 04-01 BLANK _ [facility] Implant Date 02/06/2021 [facility] CHECKon AV Delay Adaptive Paced Minimum (ms) 230 ms [facility] AV Delay Adaptive Sensed Minimum (ms) 200 ms [facility] AV Delay Paced (ms) 150 ms [facility] AV Delay Sensed (ms) 130 ms [facility] RA Pacing Amplitude (volts) 2.0 V [facility] RA Pacing Polarity UNI [facility] Lm RA Pacing Pulse Width (ms) 0.4 ms [facility] Lm RA Sensing Amplitude (mvolts) 2.0 mV [facility] Lm RA Sensing Polarity UNI [facility] Lm RV Pacing Amplitude (volts) 3.0 V [facility] Lm RV Pacing Polarity BI [facility] Lm RV Pacing Pulse Width (ms) 0.4 ms [facility] Lm RV Sensing Amplitude (mvolts) 2.5 mV [facility] Lm RV Sensing Polarity BI [facility] Demand Interval (ms) 320 [facility] Lead1 Mfg BSX [facility] Lead2 Mfg BSX [facility] Location RA [facility] Location RV [facility] Lower Rate (bpm) 60 {beats}/min [facility] Model L111 ESSENTIO MRI [facility] Model 7840 Ingevity + MRI [facility] Model 7841 Ingevity + MRI [facility] Pacemaker Dependent? NO [facility] Pacing Mode DDD [facility] PM-Device Mfg BSX [facility] PM-Percent Pacing (A) 42 % [facility] PM-Percent Pacing (V) 98 % [facility] RA Unipolar Impedance ohms 517 ohm [facility] Rhythm Sinus Bradycardia [facility] RV Bipolar Impedance ohms 577 ohm [facility] Serial Number [id number] [facility] Serial Number [id number] [facility] Serial Number [id number] [facility] Thresh RA Capture Amplitude (volts) 0.5 V [facility] Thresh RA Capture Duration (ms) 0.4 ms [facility] Thresh RA Sensing Amplitude (mvolts) 3.9 mV [facility] Thresh RV Capture Amplitude (volts) 1.3 V [facility] Thresh RV Capture Duration (ms) 0.4 ms [facility] Thresh RV Sensing Amplitude (mvolts) 6.6 mV [facility] Tracking Rate (bpm) 130 {beats}/min [facility] Dilute Filiberto's viper venom timeon 02-28-2023 dRVVT Coag (PPP) [Time] 46.4 s 0.0-47.0 [facility] No Panel Informationon 02-28 Anti-Cardiolipin IgM Antibody 73 MPL U/mL 0-12 [facility] Comment on above: Negative: <13 Indete rminate: 13 - 20 Low-Med Positive: >20 - 80 High Positive: >80 Serum beta 2 glycoprotein 1 IgA antibody detectionon 02-28-2023 Beta 2 glycoprotein 1 IgA Ql (S) <9 0-25 [facility] Comment on above: Result Units: GPI Ig A unitsThe reference interval reflects a 3SD or 99th percentileinterval, which is thought to represent a potentiallyclinically significant result in accordance with theInternational Consensus Statement on the classificationcriteria for definitive antiphospholipid syndrome (APS). JThromb Haem 2006;4:295-306. Serum beta 2 glycoprotein 1 IgG antibody detectionon 02-28-2023 Beta 2 glycoprotein 1 IgG Ql (S) <9 0-20 [facility] Comment on above: Result Units: GPI Ig G unitsThe reference interval reflects a 3SD or 99th percentileinterval, which is thought to represent a potentiallyclinically significant result in accordance with theInternational Consensus Statement on the classificationcriteria for definitive antiphospholipid syndrome (APS). JThromb Haem 2006;4:295-306. Serum beta 2 glycoprotein 1 IgM antibody detectionon 02-28-2023 Beta 2 glycoprotein 1 IgM Ql (S) 42 0-32 [facility] Comment on above: Result Units: GPI Ig M unitsThe reference interval reflects a 3SD or 99th percentileinterval, which is thought to represent a potentiallyclinically significant result in accordance with theInternational Consensus Statement on the classificationcriteria for definitive antiphospholipid syndrome (APS). JThromb Haem 2006;4:295-306.Performed at: [facility] [id number] Director: Bonita Rodriguez MD, Phone: [phone] at: [facility] [id number] Director: Pop Rios PhD, Phone: [phone] Serum cardiolipin IgG antibo dy assay by immunoassay (units/volume)on 02-28-2023 Cardiolipin IgG IA Qn (S) < 9 GPL U/mL 0-14 [facility] Comment on above: Negative: <15 Indete rminate: 15 - 20 Low-Med Positive: >20 - 80 High Positive: >80 Serum or plasma cardiolipin IgA antibody assay (units/volume)on 02-28-2023 Cardiolipin IgA Qn < 9 APL U/mL 0-11 [facility] Comment on above: Negative: <12 Indete rminate: 12 - 20 Low-Med Positive: >20 - 80 High Positive: >80 Thin prep Papanicolaou smear with manual screeningon 02-28-2023 Thin prep Papanicolaou smear with manual screening 34.0 sec 0.0-47.6 [facility] Thin prep Papanicolaou smear with manual screening 1.05 Ratio 0.00-1.34 [facility] Thin prep Papanicolaou smear with manual screening 42.9 sec 0.0-43.5 [facility] Thin prep Papanicolaou smear with manual screening Comment: . [facility] Comment on above: No lupus anticoagula nt was detected. Thrombin time in platelet po or plasmaon 02-28-2023 Thrombin time Coag (PPP) [Time] 16.9 sec 0.0-23.0 [facility] Basophil percentageOrdered B y: Josey Lynn on 01-21-2023 Cholesterol [Mass/Vol] 201 mg/dL <[address] [facility] Comment on above: <200 mg/dL Desirable 200-240 mg/dL Borderline >240 mg/dL High Risk Triglyceride [Mass/Vol] 175 mg/dL <199 [facility] Comment on above: The drugs N-Acetylcy steine and Metamizole may falsely depress this assay.Serum Triglycerides Reference Interval Normal <150 mg/dL Borderline high 150 - 199 mg/dL High 200 - 499 mg/dL Very High > or = 500 mg/dL Bilirubin Test strip Ql (U)O rdered By: Josey Lynn on 01-21-2023 Bilirubin Ql (U) Negative Negative [facility] Dilute Filiberto's viper venom timeOrdered By: Josey Lnyn on 01-21-2023 dRVVT Coag (PPP) [Time] 41.8 s 0.0-47.0 [facility] Ketones Test strip Ql (U)Ord ered By: Josey Lynn on 01-21-2023 Ketones Ql (U) Negative Negative [facility] Laboratory - Chemistry and C hemistry - challengeOrdered By: Josey Lynn on 01-21-2023 Free T4 [Mass/Vol] 1.36 ng/dL 0.76-1.46 [facility] Laboratory - Hematology and Cell countson 01-21-2023 HbA1c (Bld) [Mass fraction] 8.1 % 4.2-6.3 [facility] Mitotic spindle apparatus Ab [Titer] in Serum or PlasmaOrdered By: Josey Lynn on 01-21-2023 Mitotic spindle apparatus Ab [Titer] TNP [facility] Comment on above: Test not performed Nitrite Test strip Ql (U)Ord ered By: Josey Lynn on 01-21-2023 Nitrite Ql (U) Negative Negative [facility] No Panel InformationOrdered By: Josey Lynn on 01-21-2023 ROBBI Nuclear Membrane Pattern TNP [facility] Comment on above: Test not performed Anti-Nuclear Antibody Comment 2 Comment . [facility] Comment on above: For more information about Hep-2 cell patterns use[employer]Com[employer], the official website for the InternationalConsensus on Antinuclear Antibody (ROBBI) Patterns (ICAP). ------A positive ROBBI result may occur in healthy individuals (lowtiter) or be associated with a variety of diseases. Seeinterpretation chart which is not all inclusive:Pattern Antigen Detected Suggested Disease Association Homogeneous DNA(ds,ss), SLE - High titers Nucleosomes, Histones Drug-induced SLE Speckled Sm, RESEARCH ARCHAEOLOGIST, SCL-70, SLE,MCTD,PSS (diffuse form), SS-A/SS-B Sjogrens Nucleolar SCL-70, PM-1/SCL High titers Scleroderma, PM/DM Centromere Centromere PSS (limited form) w/Crest syndrome variable Nuclear Dot [id number] Primary Biliary Cirrhosis Nuclear GP210, Primary Biliary CirrhosisMembrane yasmin A,B,C Hepatitis B Surface Antigen Non-Reactive Nonreactive [facility] Hepatitis C Antibody Non-Reactive Nonreactive [facility] Comment on above: Non Reactive: < 0.8 Equivocal: >/= 0.8 to < 1.0 Reactive: >/= 1.0The CDC recommends that a reactive/equivocal HCV antibody result be followed up by the HCV Nucleic Acid Amplificationtest (604670) Hexagonal Phase Phospholipid 14 sec 0-11 [facility] Vitamin D 25-Hydroxy 25.0 ng/mL [facility] Comment on above: Vitamin D 25(OH) Sta tus Range Deficiency <20 ng/mL (50nmol/L) Insufficiency 20 - 30 ng/mL (50 - 75 nmol/L) Sufficiency 30 - 100 ng/mL (75 - 250 nmol/L) Toxicity >100 ng/mL (>250 nmol/L) Thyroid Stimulating Hormone (TSH) 2.44 uIU/mL 0.358-3.74 [facility] Protein Test strip Ql (U)Ord ered By: Josey Lynn on 01-21-2023 Protein Ql (U) Negative Negative [facility] Serum DNA double strand anti body assay (units/volume)Ordered By: Josey Lynn on 01-21-2023 DNA double strand Ab Qn (S) [IU]/mL 0-9 [facility] Comment on above: Negative <5 Equivoca l 5 - 9 Positive >9Performed at: [facility] [id number] Director: Bonita Rodriguez MD, Phone: [phone] at: [facility] [id number] Director: Pop Rios PhD, Phone: [phone] Serum beta 2 glycoprotein 1 IgA antibody detectionOrdered By: Josey Lynn on 01-21-2023 Beta 2 glycoprotein 1 IgA Ql (S) <9 0-25 [facility] Comment on above: Result Units: GPI Ig A unitsThe reference interval reflects a 3SD or 99th percentileinterval, which is thought to represent a potentiallyclinically significant result in accordance with theInternational Consensus Statement on the classificationcriteria for definitive antiphospholipid syndrome (APS). JThromb Haem 2006;4:295-306. Serum beta 2 glycoprotein 1 IgG antibody detectionOrdered By: Josey Lynn on 01-21-2023 Beta 2 glycoprotein 1 IgG Ql (S) <9 0-20 [facility] Comment on above: Result Units: GPI Ig G unitsThe reference interval reflects a 3SD or 99th percentileinterval, which is thought to represent a potentiallyclinically significant result in accordance with theInternational Consensus Statement on the classificationcriteria for definitive antiphospholipid syndrome (APS). JThromb Haem 2006;4:295-306. Serum beta 2 glycoprotein 1 IgM antibody detectionOrdered By: Josey Lynn on 01-21-2023 Beta 2 glycoprotein 1 IgM Ql (S) 33 0-32 [facility] Comment on above: Result Units: GPI Ig M unitsThe reference interval reflects a 3SD or 99th percentileinterval, which is thought to represent a potentiallyclinically significant result in accordance with theInternational Consensus Statement on the classificationcriteria for definitive antiphospholipid syndrome (APS). JThromb Haem 2006;4:295-306. Serum hepatitis B virus core antibody detectionOrdered By: Josey Lynn on 01-21-2023 HBV core Ab Ql (S) Negative Negative [facility] Comment on above: Performed at: [address] [id number] Director: Bointa Rodriguez MD, Phone: [phone] at: - [facility] [address] [id number] Director: Pop Rios PhD, Phone: [phone] Serum hepatitis B virus surf anushka antibody IgG detectionOrdered By: Josey Lynn on 01-21-2023 HBV surface IgG Ql (S) Non-Reactive [facility] Comment on above: Non Reactive: Incons istent with immunity less than <10 mIU/mL Reactive: Consistent with immunity greater than or equal to 10 mIU/mL Serum midbody antibody titer by immunofluorescenceOrdered By: Josey Lynn on 01-21-2023 Midbody Ab IF (S) [Titer] [facility] Comment on above: Test not performed Serum multiple nuclear dot p attern antinuclear IgG antibody (ROBBI) titer by immunofluoOrdered By: Josey Lynn on 01-21-2023 Multiple nuclear dots nuclear IgG pattern IF (S) [Titer] [facility] Comment on above: Test not performed Serum neuronal nuclear antib alejandro detection by immunofluorescenceOrdered By: Josey Lynn on 01-21-2023 Neuronal nuclear Ab IF Ql (S) [facility] Comment on above: Test not performed Serum nuclear antibody patte rn homogenous titer by immunofluorescenceOrdered By: Josey Lynn on 01-21-2023 Homogenous nuclear Ab pattern IF (S) [Titer] >1:1280 . [facility] Comment on above: ICAP nomenclature: A C-1Previous reported result: TNP Edited by: FEDE on 01/23/23:1509 AMENDED REPORT 01/23/23 1509 HOMOGENEOUS previously reported as: Test not performed Serum nuclear antibody patte rn interpretation by immunofluorescenceOrdered By: Josey Lynn on 01-21-2023 Nuclear Ab pattern IF (S) [Interp] [facility] not performed Serum nuclear antibody titer by immunofluorescenceOrdered By: Josey Lynn on 01-21-2023 Nuclear Ab IF (S) [Titer] Positive . [facility] Comment on above: Negative <1:80 Borde rline 1:80 Positive >1:80 Serum or plasma calcitriol m easurement (mass/volume)Ordered By: Josey Lynn on 01-21-2023 1,25-dihydroxyvitamin D3 [Mass/Vol] 66.2 pg/mL 24.8-81.5 [facility] Serum or plasma cholesterol in HDL measurement (mass/volume)Ordered By: Josey Lynn on 01-21-2023 Cholesterol in HDL [Mass/Vol] 60 mg/dL >40 [facility] Comment on above: The drugs N-Acetylcy steine and Metamizole may falsely depress this assay. Reference Range HDL <40 mg/dL Low HDL Cholesterol HDL >or= 60 mg/dL High HDL Cholesterol Serum or plasma cholesterol in VLDL measurement (mass/volume)Ordered By: Josey Lynn on 01-21-2023 Cholesterol in VLDL [Mass/Vol] 35 mg/dL 5-40 [facility] Serum or plasma complement C 3 measurement (mass/volume)Ordered By: Josey Lynn on 01-21-2023 Complement C3 [Mass/Vol] 157 mg/dL 82-167 [facility] Serum or plasma complement C 4 measurement (mass/volume)Ordered By: Josey Lynn on 01-21-2023 Complement C4 [Mass/Vol] 25 mg/dL 12-38 [facility] Serum or plasma low density lipoprotein (LDL) cholesterol measurement (mass/volume)Ordered By: Josey Lynn on 01-21-2023 Cholesterol in LDL [Mass/Vol] 106 mg/dL 0-130 [facility] Serum proliferating cell nuc lear antigen (PCNA) antibody titer by immunofluorescenceOrdered By: Josey Lynn on 01-21-2023 PCNA extractable nuclear Ab IF (S) [Titer] TNP [facility] Comment on above: Test not performed Serum speckled nuclear antib alejandro pattern titerOrdered By: Josey Lynn on 01-21-2023 Speckled nuclear Ab pattern (S) [Titer] [facility] Comment on above: Test not performedDe nse Fine Speckled pattern is noted. This pattern suggeststhe presence of DFS70 antibody which has a low prevalencein systemic autoimmune rheumatic diseases.ICAP nomenclature: AC-2,4,5,29Previous reported result: >1:1280 Edited by: FEDE on 01/23/23:1509 AMENDED REPORT 01/23/23 1509 SPECKLED PAT. previously reported as: >1:1280 H Dense Fine Speckled pattern is noted. This pattern suggeststhe presence of DFS70 antibody which has a low prevalencein systemic autoimmune rheumatic diseases.ICAP nomenclature: AC-2,4,5,29 Thin prep Papanicolaou smear with manual screeningOrdered By: Josey Lynn on 01-21-2023 Thin prep Papanicolaou smear with manual screening [facility] Comment on above: Test not performed Thin prep Papanicolaou smear with manual screening 33.9 sec 0.0-47.6 [facility] Thin prep Papanicolaou smear with manual screening 0.97 Ratio 0.00-1.34 [facility] Thin prep Papanicolaou smear with manual screening 43.7 sec 0.0-43.5 [facility] Thin prep Papanicolaou smear with manual screening 43.2 sec 0.0-40.5 [facility] Thin prep Papanicolaou smear with manual screening Comment: . [facility] Comment on above: Results are consiste nt with the presence of a lupus anticoagulant. As onlypersistent lupus anticoagulant (LA) positivity meets laboratory diagnosticcriteria for antiphospholipid syndrome, repeat testing in 12 or more weeksis recommended, ideally in the absence of anticoagulant therapy.Important Note: The results of LA testing are not valid for patientsreceiving heparin, direct Xa inhibitor (e.g., rivaroxaban, apixaban) ordirect thrombin inhibitor (e.g., dabigatran) therapy. These drugs may causefalse positive LA results but will not interfere with anticardiolipin andbeta-2 glycoprotein 1 antibody testing. Thrombin time in platelet po or plasmaOrdered By: Josey Lynn on 01-21-2023 Thrombin time Coag (PPP) [Time] 16.3 sec 0.0-23.0 [facility] Urine blood detectionOrdered By: Josey Lynn on 01-21-2023 RBC Ql (U) Negative Negative [facility] Urine clarityOrdered By: Noa Lynn on 01-21-2023 Clarity (U) Sl. Cloudy Clear [facility] Urine color determinationOrd ered By: Josey Lynn on 01-21-2023 Color (U) Yellow Yellow [facility] Urine glucose detectionOrder ed By: Josey Lynn on 01-21-2023 Glucose Ql (U) Normal mg/dl Normal [facility] Urine leukocyte esterase det ection by dipstickOrdered By: Josey Lynn on 01-21-2023 Leukocyte esterase Test strip Ql (U) Negative Negative [facility] Urine pHOrdered By: Josey shah on 01-21-2023 pH (U) 6.5 [pH] 5.0 - 8.0 [facility] Urine specific gravity measu rementOrdered By: Josey Lynn on 01-21-2023 Specific gravity (U) [Rel density] 1.010 1.002-1.030 [facility] Urobilinogen Auto test strip Ql (U)Ordered By: Josey Lynn on 01-21-2023 Urobilinogen Ql (U) Normal mg/dl Normal [facility] Absolute lymphocyte countOrd ered By: Elmer Richards on 12-24-2022 Lymphocytes Auto (Unsp spec) [#/Vol] 1.82 10*3/uL 0.83-4.51 [facility] Basophil percentageOrdered B y: Elmer Richards on 12-24-2022 Basophils/100 WBC (Bld) 0.4 % 0-1 [facility] Bilirubin [Mass/Vol] 0.60 mg/dL 0.20-1.00 [facility] Comment on above: For patients on eltr ombopag therapy, use of Dimension [place] TBIL is not recommended. Chloride [Moles/Vol] 105 mmol/L 98-107 [facility] Eosinophils/100 WBC (Bld) 2.4 % 0-5 [facility] Glucose [Mass/Vol] 190 mg/dL 74-106 [facility] Comment on above: Fasting Glucose resu lt greater than or equal to 126 mg/dL suggests DIABETES MELLITUS per A.D.A. criteria. Neutrophils (Bld) [#/Vol] 8.0 10*3/uL 2.0-7.7 [facility] Neutrophils/100 WBC (Bld) 74.3 % 47-70 [facility] Potassium [Moles/Vol] 4.0 mmol/L 3.5-5.1 [facility] Protein [Mass/Vol] 6.9 g/dL 6.4-8.2 [facility] Sodium [Moles/Vol] 137 mmol/L 136-145 [facility] WBC (Bld) [#/Vol] 10.8 10*3/uL 4.4-11.0 [facility] Blood erythrocytes count (nu mber/volume)Ordered By: Elmer Richards on 12-24-2022 RBC (Bld) [#/Vol] 4.73 10*6/uL 4.2-5.4 [facility] Blood hemoglobin measurement (mass/volume)Ordered By: Elmer Richards on 12-24-2022 Hemoglobin (Bld) [Mass/Vol] 14.1 g/dL 12.0-15.0 [facility] Blood lymphocytes/100 leukoc ytesOrdered By: Elmer Richards on 12-24-2022 Lymphocytes/100 WBC (Bld) 16.9 % 19-41 [facility] Blood monocytes/100 leukocyt esOrdered By: Elmer Richards on 12-24-2022 Monocytes/100 WBC (Bld) 5.6 % 0-10 [facility] Blood platelet mean volumeOr dered By: Elmer Richards on 12-24-2022 Platelet mean volume (Bld) [Entitic vol] 9.0 fL 6.2-12.0 [facility] Determination of erythrocyte mean corpuscular volume (MCV)Ordered By: Elmer Richards on 12-24-2022 MCV (RBC) [Entitic vol] 92.6 fL 81-99 [facility] Gastrointestinal pathogens p ceasar KEITH+probe (Stl)Ordered By: Elmer Richards on 12-24-2022 Enteric Bacteriology Salmonella Sp. [facility] Enteric Bacteriology Salmonella Sp. [facility] Hematocrit Auto (Bld) [Volum e fraction]Ordered By: Elmer Richards on 12-24-2022 Hematocrit (Bld) [Volume fraction] 43.8 % 37-47 [facility] Laboratory - Chemistry and C hemistry - challengeOrdered By: Elmer Richards on 12-24-2022 ALP [Catalytic activity/Vol] 93 U/L 45-117 [facility] ALT [Catalytic activity/Vol] 29 U/L 13-56 [facility] CO2 [Moles/Vol] 30.0 mmol/L 21.0-32.0 [facility] Globulin (S) [Mass/Vol] 4.0 g/dL 2.2-4.2 [facility] Urea nitrogen/Creatinine [Mass ratio] 11.3 mg/mg 10-20 [facility] Laboratory - Hematology and Cell countsOrdered By: Elmer Richards on 12-24-2022 Erythrocyte distribution width (RBC) [Entitic vol] 42.4 fL 35.1-43.9 [facility] Erythrocyte distribution width (RBC) [Ratio] 12.3 % 11.6-14.6 [facility] Immature granulocytes/100 WBC (Bld) 0.400 % 0.0-0.9 [facility] Comment on above: IG% - Immature Granu locytes (promyelocytes, myelocytes and metamyelocytes) > 1% indicates that a LEFT SHIFT is Present. MCH (RBC) [Entitic mass] 29.8 pg 27.0-32.0 [facility] Nucleated RBC/100 WBC (Bld) [Ratio] 0 % 0-5 [facility] MCHC Auto (RBC) [Mass/Vol]Or dered By: Elmer Richards on 12-24-2022 MCHC (RBC) [Mass/Vol] 32.2 g/dL 32-36 [facility] No Panel InformationOrdered By: Elmer Richards on 12-24-2022 Estimated GFR (MDRD) Amer 130 mL/min >60 [facility] Comment on above: GFR Calc Estimated GFR (MDRD) Non-Af Amer 107 mL/min >60 [facility] Comment on above: Non- GFR Calc Platelets bldOrdered By: Hira Richards on 12-24-2022 Platelets (Bld) [#/Vol] 323 10*3/uL 150-450 [facility] Serum or plasma C reactive p rotein measurement (mass/volume)Ordered By: Elmer Richards on 12-24-2022 CRP [Mass/Vol] 19.50 mg/L 0.0-3.0 [facility] Comment on above: C-Reactive Protein ( CRP) provides useful information for thediagnosis, therapy and monitoring of inflammatory processesand associated diseases. For the evaluation of Relative Riskfor Cardiovascular Disease, a High Sensitivity CRP (HSCRP)should be ordered. Serum or plasma albumin danna urement (mass/volume)Ordered By: Elmer Richards on 12-24-2022 Albumin [Mass/Vol] 2.9 g/dL 3.2-5.0 [facility] Serum or plasma albumin/glob ulin mass ratioOrdered By: Elmer Richards on 12-24-2022 Albumin/Globulin [Mass ratio] 0.7 {ratio} 0.9-2.4 [facility] Serum or plasma calcium danna urement (mass/volume)Ordered By: Elmer Richards on 12-24-2022 Calcium [Mass/Vol] 8.7 mg/dL 8.5-10.1 [facility] Serum or plasma creatinine m easurement (mass/volume)Ordered By: Elmer Richards on 12-24-2022 Creatinine [Mass/Vol] 0.62 mg/dL 0.55-1.02 [facility] Comment on above: The validity of the calculated GFR & GFRAA in patients over 70 years has not been determined. Clinical correlation is essential. Serum or plasma urea nitroge n measurement (mass/volume)Ordered By: Elmer Richards on 12-24-2022 Urea nitrogen [Mass/Vol] 7 mg/dL 7-18 [facility] Thin prep Papanicolaou smear with manual screeningOrdered By: Elmer Richards on 12-24-2022 Thin prep Papanicolaou smear with manual screening 19 U/L 15-37 [facility] Thin prep Papanicolaou smear with manual screening 2 5-15 [facility] LABORATORYOrdered By: Susan Vergara on 04-16-2022 Albumin BCP dye [Mass/Vol] 3.4 G/dL Invalid Interpretation Code 3.5 - 5.0 G/dL AO ADM SS ALT With P-5'-P [Catalytic activity/Vol] 35 U/L Invalid Interpretation Code 14 - 59 U/L AO ADM SS Appearance (U) Clear (04/16/22 2:12 PM) Invalid Interpretation Code Clear AO Auto Urine SS AST With P-5'-P [Catalytic activity/Vol] 25 U/L Invalid Interpretation Code 10 - 40 U/L AO ADM SS Basophil, Absolute 0.1 103/mcL Invalid Interpretation Code 0.0 - 0.2 10^3/mcL AO Workflow SS Basophils/100 WBC (Bld) 0.8 % Invalid Interpretation Code 0.0 - 2.5 % AO Workflow SS Bilirubin Ql (U) Negative (04/16/22 2:12 PM) Invalid Interpretation Code Negative AO Auto Urine SS Color (U) Yellow (04/16/22 2:12 PM) Invalid Interpretation Code AO Auto Urine SS CPK 189 1 Invalid Interpretation Code 26 - 192 U/L AO ADM SS Creatinine [Mass/Vol] 0.57 mg/dL Invalid Interpretation Code 0.55 - 1.02 mg/dL AO ADM SS CRP [Mass/Vol] 0.3 mg/dL Invalid Interpretation Code 0.0 - 0.9 mg/dL AO ADM SS Eosinophil, Absolute 0.1 103/mcL Invalid Interpretation Code 0.0 - 0.4 10^3/mcL AO Workflow SS Eosinophils/100 WBC (Bld) 1.8 % Invalid Interpretation Code 0.0 - 7.0 % AO Workflow SS Erythrocyte distribution width (RBC) [Ratio] 12.6 % Invalid Interpretation Code 11.5 - 14.5 % AO Workflow SS Glucose Test strip (U) [Mass/Vol] >=1000 mg/dL Invalid Interpretation Code Negativemg/d L AO Auto Urine SS Hematocrit (Bld) [Volume fraction] 43.6 % Invalid Interpretation Code 37.0 - 47.0 % AO Workflow SS Hemoglobin (Bld) [Mass/Vol] 14.7 G/dL Invalid Interpretation Code 12.0 - 16.0 G/dL AO Workflow SS Hemoglobin Auto test strip (U) [Mass/Vol] Negative (04/16/22 2:12 PM) Invalid Interpretation Code Negative AO Auto Urine SS Ketones Ql (U) Negative Invalid Interpretation Code Negativemg/d L AO Auto Urine SS Lymphocyte, Absolute 1.4 103/mcL Invalid Interpretation Code 0.8 - 3.9 10^3/mcL AO Workflow SS Lymphocytes/100 WBC (Bld) 17.9 % Invalid Interpretation Code 10.0 - 50.0 % AO Workflow SS MCH (RBC) [Entitic mass] 30.2 pg Invalid Interpretation Code 27.0 - 31.2 pg AO Workflow SS MCHC 33.7 G/dL Invalid Interpretation Code 33.0 - 37.0 G/dL AO Workflow SS MCV (RBC) [Entitic vol] 89.9 fL Invalid Interpretation Code 80.0 - 94.0 fL AO Workflow SS Monocyte, Absolute 0.5 103/mcL Invalid Interpretation Code 0.2 - 1.0 10^3/mcL AO Workflow SS Monocytes/100 WBC (Bld) 5.9 % Invalid Interpretation Code 1.7 - 13.0 % AO Workflow SS Neutrophil, Absolute 5.8 103/mcL Invalid Interpretation Code 2.9 - 6.2 10^3/mcL AO Workflow SS Neutrophils/100 WBC (Bld) 73.6 % Invalid Interpretation Code 37.0 - 80.0 % AO Workflow SS Platelet mean volume (Bld) [Entitic vol] 7.2 fL Invalid Interpretation Code 7.4 - 10.4 fL AO Workflow SS Platelets (Bld) [#/Vol] 319 103/mcL Invalid Interpretation Code 130 - 400 10^3/mcL AO Workflow SS RBC (Bld) [#/Vol] 4.86 106/mcL Invalid Interpretation Code 4.20 - 5.40 10^6/mcL AO Workflow SS TSH Qn 1.29 m[IU]/L Invalid Interpretation Code 0.36 - 3.74 mcIU/mL AO ADM SS UA Leuk Est Negative (04/16/22 2:12 PM) Invalid Interpretation Code Negative AO Auto Urine SS UA Nitrite Negative (04/16/22 2:12 PM) Invalid Interpretation Code Negative AO Auto Urine SS UA pH 5.5 (04/16/22 2:12 PM) Invalid Interpretation Code 5.0 - 8.0 AO Auto Urine SS UA Protein Negative Invalid Interpretation Code Negativemg/d L AO Auto Urine SS UA Spec Grav 1.015 (04/16/22 2:12 PM) Invalid Interpretation Code 1.015-1.025 AO Auto Urine SS UA Specimen Type Not Given (04/16/22 2:12 PM) Invalid Interpretation Code AO Auto Urine SS UA Urobilinogen 0.2 E.U./dL Invalid Interpretation Code 0.2-1.0E.U./ dL AO Auto Urine SS Urea nitrogen [Mass/Vol] 12 mg/dL Invalid Interpretation Code 7 - 18 mg/dL AO ADM SS WBC (Bld) [#/Vol] 7.8 103/mcL Invalid Interpretation Code 4.6 - 10.8 10^3/mcL AO Workflow SS LABORATORYOrdered By: SYSTEM SYSTEM on 04-16-2022 Complement C3 [Mass/Vol] 150.0 mg/dL Invalid Interpretation Code 90.0 - 170.0 mg/dL ADM SS Complement C4 [Mass/Vol] 35.0 mg/dL Invalid Interpretation Code 16.0 - 38.0 mg/dL AH ADM SS GFR 136 ml/min/1.73sqm Invalid Interpretation Code AO Chemistry S GFR Non- 112 ml/min/1.73sqm Inva lid Interpretation Code AO Chemistry S TPO Ab IA Qn 36 unit/mL Invalid Interpretation Code 0 - 60 unit/mL ADM SS LABORATORYOrdered By: Jim Santa on 04-16-2022 Test cancelled: ciran Invalid Interpretation Code ALS Subsection Laboratory - Chemistry and C hemistry - challengeon 03-19-2022 Free T4 [Mass/Vol] 1.57 ng/dL 0.76-1.46 [facility] Work Phone: No Panel Informationon 03-19 Thyroid Stimulating Hormone (TSH) 0.65 uIU/mL 0.358-3.74 [facility] Work Phone: Whole blood hemoglobin A1c/t otal hemoglobin ratio (mass fraction)on 03-19-2022 HbA1c (Bld) [Mass fraction] 7.7 % 3.8-5.6 [facility] Work Phone: Comment on above: Normal < 5.7 % Predi abetic 5.7 - 6.4 % Diabetic >or= 6.5 % Please note range changes. Absolute lymphocyte counton 12-07-2021 Lymphocytes Auto (Unsp spec) [#/Vol] 2.01 10*3/uL 0.83-4.51 [facility] Work Phone: Basophil percentageon 2021 Basophils/100 WBC (Bld) 0.5 % 0-1 [facility] Work Phone: Bilirubin [Mass/Vol] 0.50 mg/dL 0.20-1.00 [facility] Work Phone: Comment on above: For patients on eltr ombopag therapy, use of Dimension [place] TBIL is not recommended. Chloride [Moles/Vol] 101 mmol/L 98-107 [facility] Work Phone: Eosinophils/100 WBC (Bld) 2.9 % 0-5 [facility] Work Phone: Glucose [Mass/Vol] 145 mg/dL 74-106 [facility] Work Phone: Comment on above: Fasting Glucose resu lt greater than or equal to 126 mg/dL suggests DIABETES MELLITUS per A.D.A. criteria. Neutrophils (Bld) [#/Vol] 7.8 10*3/uL 2.0-7.7 [facility] Work Phone: Neutrophils/100 WBC (Bld) 71.4 % 47-70 [facility] Work Phone: Potassium [Moles/Vol] 3.8 mmol/L 3.5-5.1 [facility] Work Phone: [phone] Protein [Mass/Vol] 8.0 g/dL 6.4-8.2 [facility] Work Phone: Sodium [Moles/Vol] 137 mmol/L 136-145 [facility] Work Phone: WBC (Bld) [#/Vol] 11.0 10*3/uL 4.4-11.0 [facility] Work Phone: Blood erythrocytes count (nu mber/volume)on 12-07-2021 RBC (Bld) [#/Vol] 5.29 10*6/uL 4.2-5.4 [facility] Work Phone: Blood hemoglobin measurement (mass/volume)on 12-07-2021 Hemoglobin (Bld) [Mass/Vol] 15.9 g/dL 12.0-15.0 [facility] Work Phone: Blood lymphocytes/100 leukoc yteson 08-04-2022 Lymphocytes/100 WBC (Bld) 18.3 % 19-41 [facility] Work Phone: Blood monocytes/100 leukocyt eson 12-07-2021 Monocytes/100 WBC (Bld) 6.5 % 0-10 [facility] Work Phone: Blood platelet mean volumeon 12-07-2021 Platelet mean volume (Bld) [Entitic vol] 9.5 fL 6.2-12.0 [facility] Work Phone: Determination of erythrocyte mean corpuscular volume (MCV)on 12-07-2021 MCV (RBC) [Entitic vol] 92.1 fL 81-99 [facility] Work Phone: Hematocrit Auto (Bld) [Volum e fraction]on 12-07-2021 Hematocrit (Bld) [Volume fraction] 48.7 % 37-47 [facility] Work Phone: Laboratory - Chemistry and C hemistry - challengeon 12-07-2021 ALP [Catalytic activity/Vol] 84 U/L 45-117 [facility] Work Phone: ALT [Catalytic activity/Vol] 39 U/L 13-56 [facility] Work Phone: CO2 [Moles/Vol] 29.0 mmol/L 21.0-32.0 [facility] Work Phone: Globulin (S) [Mass/Vol] 4.5 g/dL 2.2-4.2 [facility] Work Phone: [phone] Magnesium [Mass/Vol] 2.1 mg/dL 1.6-2.6 [facility] Work Phone: Urea nitrogen/Creatinine [Mass ratio] 20.5 mg/mg 10-20 [facility] Work Phone: Laboratory - Hematology and Cell countson 12-07-2021 Erythrocyte distribution width (RBC) [Entitic vol] 43.5 fL 35.1-43.9 [facility] Work Phone: Erythrocyte distribution width (RBC) [Ratio] 13.0 % 11.6-14.6 [facility] Work Phone: Immature granulocytes/100 WBC (Bld) 0.400 % 0.0-0.9 [facility] Work Phone: Comment on above: IG% - Immature Granu locytes (promyelocytes, myelocytes and metamyelocytes) > 1% indicates that a LEFT SHIFT is Present. MCH (RBC) [Entitic mass] 30.1 pg 27.0-32.0 [facility] Work Phone: Nucleated RBC/100 WBC (Bld) [Ratio] 0 % 0-5 [facility] Work Phone: MCHC Auto (RBC) [Mass/Vol]on 12-07-2021 MCHC (RBC) [Mass/Vol] 32.6 g/dL 32-36 [facility] Work Phone: No Panel Informationon 12-07 Estimated GFR (MDRD) Amer 108 mL/min >60 [facility] Work Phone: Comment on above: GFR Calc Estimated GFR (MDRD) Non-Af Amer 89 mL/min >60 [facility] Work Phone: Comment on above: Non- GFR Calc Thyroid Stimulating Hormone (TSH) 0.09 uIU/mL 0.358-3.74 [facility] Work Phone: Platelets bldon 12-07-2021 Platelets (Bld) [#/Vol] 318 10*3/uL 150-450 [facility] Work Phone: Serum or plasma albumin danna urement (mass/volume)on 12-07-2021 Albumin [Mass/Vol] 3.5 g/dL 3.2-5.0 [facility] Work Phone: Serum or plasma albumin/glob ulin mass ratioon 12-07-2021 Albumin/Globulin [Mass ratio] 0.8 {ratio} 0.9-2.4 [facility] Work Phone: Serum or plasma calcium danna urement (mass/volume)on 12-07-2021 Calcium [Mass/Vol] 9.6 mg/dL 8.5-10.1 [facility] Work Phone: Serum or plasma creatinine m easurement (mass/volume)on 12-07-2021 Creatinine [Mass/Vol] 0.73 mg/dL 0.55-1.02 [facility] Work Phone: Comment on above: The validity of the calculated GFR & GFRAA in patients over 70 years has not been determined. Clinical correlation is essential. Serum or plasma urea nitroge n measurement (mass/volume)on 12-07-2021 Urea nitrogen [Mass/Vol] 15 mg/dL 7-18 [facility] Work Phone: Thin prep Papanicolaou smear with manual screeningon 12-07-2021 Thin prep Papanicolaou smear with manual screening 28 U/L 15-37 [facility] Work Phone: Thin prep Papanicolaou smear with manual screening 7 5-15 [facility] Work Phone: Whole blood hemoglobin A1c/t otal hemoglobin ratio (mass fraction)on 12-07-2021 HbA1c (Bld) [Mass fraction] 8.3 % 3.8-5.6 [facility] Work Phone: Comment on above: Normal < 5.7 % Predi abetic 5.7 - 6.4 % Diabetic >or= 6.5 % Please note range changes. ECG B/O W INTERP (MED OFFICE ) [facility] Vital Signs Date Time Vital Sign Value Performing Clinician Facility 12-01-2024 12:52-0400 Diastolic blood pressure 91 mm[Hg] Ayaan Moreland MD Work Phone: [facility] 12-01-2024 12:52-0400 Heart rate 84 /min Ayaan Moreland MD Work Phone: [facility] 12-01-2024 12:52-0400 Respiratory rate 16 /min Ayaan Moreland MD Work Phone: [facility] 12-01-2024 12:52-0400 Systolic blood pressure 148 mm[Hg] Ayaan Moreland MD Work Phone: [facility] 11-19-2024 14:21-0400 Body height 152.[address] Elmer Richards MD Work Phone: [facility] 11-19-2024 14:21-0400 Body mass index (BMI) [Ratio] 50.2 kg/m2 Dr. Elmer Richards MD Work Phone: [facility] 11-19-2024 14:21-0400 Body weight 116.[address] Elmer Richards MD Work Phone: [facility] 11-19-2024 14:21-0400 Diastolic blood pressure 85 mm[Hg] Dr. Elmer Richards MD Work Phone: [facility] 11-19-2024 14:21-0400 Heart rate 76 /min Dr. Elmer Richards MD Work Phone: [facility] 11-19-2024 14:21-0400 SaO2% (BldA) [Mass fraction] 95 % Dr. Elmer Richards MD Work Phone: [facility] 11-19-2024 14:21-0400 Systolic blood pressure 136 mm[Hg] Dr. Elmer Richards MD Work Phone: [facility] 11-11-2024 13:17-0400 Body height 152.[address] Elmer Richards MD Work Phone: [facility] 11-11-2024 13:17-0400 Body mass index (BMI) [Ratio] 49.4 kg/m2 Dr. Elmer Richards MD Work Phone: [facility] 11-11-2024 13:17-0400 Body weight 114.[address] Elmer Richards MD Work Phone: [facility] 11-11-2024 13:17-0400 Diastolic blood pressure 83 mm[Hg] Dr. Elmer Richards MD Work Phone: [facility] 11-11-2024 13:17-0400 Heart rate 77 /min Dr. Elmer Richards MD Work Phone: [facility] 11-11-2024 13:17-0400 Respiratory rate 18 /min Dr. Elmer Richards MD Work Phone: [facility] 11-11-2024 13:17-0400 Systolic blood pressure 131 mm[Hg] Dr. Elmer Richards MD Work Phone: [facility] 10-22-2024 13:42-0400 Body height 154.9 cm Dyana Moran MD Work Phone: [facility] 10-22-2024 13:42-0400 Body mass index (BMI) [Ratio] 46.29 kg/m2 Dyana Moran MD Work Phone: [facility] 10-22-2024 13:42-0400 Body temperature 97.3 [degF] Dyana Moran MD Work Phone: [facility] 10-22-2024 13:42-0400 Body weight 111.13 kg Dyana Moran MD Work Phone: [facility] 10-22-2024 13:42-0400 Diastolic blood pressure 85 mm[Hg] Dyana Moran MD Work Phone: [facility] 10-22-2024 13:42-0400 Heart rate 67 /min Dyana Moran MD Work Phone: [facility] 10-22-2024 13:42-0400 Respiratory rate 12 /min Dyana Moran MD Work Phone: [facility] 10-22-2024 13:42-0400 SaO2% (BldA) [Mass fraction] 96 % Dyana Moran MD Work Phone: [facility] 10-22-2024 13:42-0400 Systolic blood pressure 129 mm[Hg] Dyana Moran MD Work Phone: [facility] 10-13-2024 08:57-0400 Diastolic blood pressure 79 mm[Hg] Ayaan Moreland MD Work Phone: [facility] 10-13-2024 08:57-0400 Heart rate 81 /min Ayaan Moreland MD Work Phone: [facility] 10-13-2024 08:57-0400 Respiratory rate 18 /min Ayaan Moreland MD Work Phone: [facility] 10-13-2024 08:57-0400 Systolic blood pressure 136 mm[Hg] Ayaan Moreland MD Work Phone: [facility] 10-09-2024 12:48-0400 Body temperature 97.1 [degF] Dr. Elmer Richards MD Work Phone: [facility] 10-09-2024 12:48-0400 Diastolic blood pressure 84 mm[Hg] Dr. Elmer Richards MD Work Phone: [facility] 10-09-2024 12:48-0400 Heart rate 71 /min Dr. Elmer Richards MD Work Phone: [facility] 10-09-2024 12:48-0400 Respiratory rate 16 /min Dr. Elmer Richards MD Work Phone: [facility] 10-09-2024 12:48-0400 SaO2% (BldA) [Mass fraction] 99 % Dr. Elmer Richards MD Work Phone: [facility] 10-09-2024 12:48-0400 Systolic blood pressure 132 mm[Hg] Dr. Elmer Richards MD Work Phone: [facility] 10-09-2024 10:44-0400 Body height 152.[address] Elmer Richards MD Work Phone: [facility] 2024 11:31-0400 Body mass index (BMI) [Ratio] 46.48 kg/m2 Satish Pace PA-C Work Phone: [facility] 2024 11:31-0400 Body weight 112.4 kg Satish Pace PA-C Work Phone: [facility] 2024 11:31-0400 Diastolic blood pressure 91 mm[Hg] Satish Pace PA-C Work Phone: [facility] 2024 11:31-0400 Heart rate 85 /min Satish Pace PA-C Work Phone: [facility] 2024 11:31-0400 Respiratory rate 20 /min Satish Pace PA-C Work Phone: [facility] 2024 11:31-0400 SaO2% (BldA) [Mass fraction] 98 % Satish Pace PA-C Work Phone: [facility] 2024 11:31-0400 Systolic blood pressure 146 mm[Hg] Satish Pace PA-C Work Phone: [facility] 08-06-2024 08:49-0400 Body height 154.[address] Elmer Richards MD Work Phone: [facility] 08-06-2024 08:49-0400 Body mass index (BMI) [Ratio] 47.7 kg/m2 Dr. Elmer Richards MD Work Phone: [facility] 08-06-2024 08:49-0400 Body weight 114.[address] Elmer Richards MD Work Phone: [facility] 08-06-2024 08:49-0400 Diastolic blood pressure 76 mm[Hg] Dr. Elmer Richards MD Work Phone: [facility] 08-06-2024 08:49-0400 Heart rate 75 /min Dr. Elmer Richards MD Work Phone: [facility] 08-06-2024 08:49-0400 Respiratory rate 16 /min Dr. Elmer Richards MD Work Phone: [facility] 08-06-2024 08:49-0400 Systolic blood pressure 118 mm[Hg] Dr. Elmer Richards MD Work Phone: [facility] 07-27-2024 13:33-0400 Body height 155.[address] [facility] 07-27-2024 13:33-0400 Body mass index (BMI) [Ratio] 47.52 kg/m2 [facility] 07-27-2024 13:33-0400 Body weight 114.[address] [facility] 07-27-2024 13:33-0400 Diastolic blood pressure 64 mm[Hg] [facility] 07-27-2024 13:33-0400 Heart rate 79 /min [facility] 07-27-2024 13:33-0400 Respiratory rate 20 /min [facility] 1 [facility] 07-27-2024 13:33-0400 SaO2% (BldA) [Mass fraction] 95 % [facility] 07-27-2024 13:33-0400 Systolic blood pressure 125 mm[Hg] [facility] 10-21-2023 13:46-0400 Diastolic Blood Pressure Non-Invasive 84 mm[Hg] DR CHRISTINA JENNINGS MD [facility] 10-21-2023 13:46-0400 Heart rate 66 /min DR CHRISTINA JENNINGS MD [facility] 10-21-2023 13:46-0400 Reason For Taking VItal Signs DR CHRISTINA JENNINGS MD [facility] 10-21-2023 13:46-0400 Respiratory rate 16 /min DR CHRISTINA JENNINGS MD [facility] 10-21-2023 13:46-0400 Systolic Blood Pressure Non-Invasive 178 mm[Hg] DR CHRISTINA JENNINGS MD [facility] 10-21-2023 13:29-0400 Diastolic Blood Pressure Non-Invasive 86 mm[Hg] DR CHRISTINA JENNINGS MD [facility] 10-21-2023 13:29-0400 Heart rate 68 /min DR CHRISTINA JENNINGS MD [facility] 10-21-2023 13:29-0400 Respiratory rate 16 /min DR CHRISTINA JENNINGS MD [facility] 10-21-2023 13:29-0400 Systolic Blood Pressure Non-Invasive 173 mm[Hg] DR CHRISTINA JENNINGS MD [facility] 10-21-2023 12:55-0400 Body height [address] CHRISTINA JENNINGS MD [facility] 10-21-2023 12:55-0400 Body weight [address] CHRISTINA JENNINGS MD [facility] 10-21-2023 12:55-0400 Body weight 48.48 kg/m2 DR CHRISTINA JENNINGS MD [facility] 10-21-2023 12:55-0400 Diastolic Blood Pressure Non-Invasive 73 mm[Hg] DR CHRISTINA JENNINGS MD [facility] 10-21-2023 12:55-0400 Heart rate 73 /min DR CHRISTINA JENNINGS MD [facility] 10-21-2023 12:55-0400 Respiratory rate 18 /min DR CHRISTINA JENNINGS MD [facility] 10-21-2023 12:55-0400 Systolic Blood Pressure Non-Invasive 171 mm[Hg] DR CHRISTINA JENNINGS MD [facility] 09-05-2023 09:41-0400 Body height 154.9 cm Dhaval Licona APRN.COUNSELING CASE MANAGER Work Phone: [facility] 09-05-2023 09:41-0400 Body mass index (BMI) [Ratio] 46.97 kg/m2 Dhaval Linardi COMB MACHINE OPERATOR.COUNSELING CASE MANAGER Work Phone: [facility] 09-05-2023 09:41-0400 Body weight 112.76 kg Dhaval Licona COMB MACHINE OPERATOR.COUNSELING CASE MANAGER Work Phone: [facility] 09-05-2023 09:41-0400 Diastolic blood pressure 81 mm[Hg] Dhaval Licona COMB MACHINE OPERATOR.COUNSELING CASE MANAGER Work Phone: [facility] 09-05-2023 09:41-0400 Heart rate 75 /min Dhaval Licona COMB MACHINE OPERATOR.COUNSELING CASE MANAGER Work Phone: [facility] 09-05-2023 09:41-0400 SaO2% (BldA) [Mass fraction] 99 % Dhaval Licona COMB MACHINE OPERATOR.COUNSELING CASE MANAGER Work Phone: [facility] 09-05-2023 09:41-0400 Systolic blood pressure 113 mm[Hg] Dhaval Licona COMB MACHINE OPERATOR.COUNSELING CASE MANAGER Work Phone: [facility] 07-18-2023 15:44-0400 Body height 154.9 cm Tyler Baer MD Work Phone: [facility] 07-18-2023 15:44-0400 Body weight 111.58 kg Tyler Baer MD Work Phone: [facility] 07-18-2023 15:44-0400 Diastolic blood pressure 85 mm[Hg] Tyler Baer MD Work Phone: [facility] 07-18-2023 15:44-0400 Heart rate 75 /min Tyler Baer MD Work Phone: [facility] 07-18-2023 15:44-0400 SaO2% (BldA) [Mass fraction] 96 % Tyler Baer MD Work Phone: [facility] 07-18-2023 15:44-0400 Systolic blood pressure 142 mm[Hg] Tyler Baer MD Work Phone: [facility] 07-12-2023 09:24-0500 Body height 154.[address] Elmer Richards Work Phone: [facility] 07-12-2023 09:24-0500 Body mass index (BMI) [Ratio] 45.9 kg/m2 Dr. Elmer Richards Work Phone: [facility] 07-12-2023 09:24-0500 Body weight 110.[address] Elmer Richards Work Phone: [facility] 07-12-2023 09:24-0500 Diastolic blood pressure 75 mm[Hg] Dr. Elmer Richards Work Phone: [facility] 07-12-2023 09:24-0500 Heart rate 84 /min Dr. Elmer Richards Work Phone: [facility] 07-12-2023 09:24-0500 Respiratory rate 22 /min Dr. Elmer Richards Work Phone: [facility] 07-12-2023 09:24-0500 SaO2% (BldA) [Mass fraction] 98 % Dr. Elmer Richards Work Phone: [facility] 07-12-2023 09:24-0500 Systolic blood pressure 123 mm[Hg] Dr. Elmer Richards Work Phone: [facility] 06-27-2023 13:56-0500 Body mass index (BMI) [Ratio] 46.6 kg/m2 Dr. Elmer Richards Work Phone: [facility] 06-27-2023 13:56-0500 Body temperature 97.8 [degF] Dr. Elmer Richards Work Phone: [facility] 06-27-2023 13:56-0500 Body weight 112.[address] Elmer Richards Work Phone: [facility] 06-27-2023 13:56-0500 Diastolic blood pressure 84 mm[Hg] Dr. Elmer Richards Work Phone: [facility] 06-27-2023 13:56-0500 Heart rate 68 /min Dr. Elmer Richards Work Phone: [facility] 06-27-2023 13:56-0500 Respiratory rate 14 /min Dr. Elmer Richards Work Phone: [facility] 06-27-2023 13:56-0500 SaO2% (BldA) [Mass fraction] 95 % Dr. Elmer Richards Work Phone: [facility] 06-27-2023 13:56-0500 Systolic blood pressure 148 mm[Hg] Dr. Elmer Richards Work Phone: [facility] 03-25-2023 12:26-0500 Diastolic Blood Pressure Non-Invasive 74 mm[Hg] CORNELL HEAVENLY COMB MACHINE OPERATOR-TELEVISION ENGINEERING TEACHER [facility] 03-25-2023 12:26-0500 Heart rate 68 /min CORNELL HEAVENLY COMB MACHINE OPERATOR-TELEVISION ENGINEERING TEACHER [facility] 03-25-2023 12:26-0500 Respiratory rate 16 /min CORNELL HEAVENLY COMB MACHINE OPERATOR-TELEVISION ENGINEERING TEACHER [facility] 03-25-2023 12:26-0500 Systolic Blood Pressure Non-Invasive 168 mm[Hg] CORNELL HEAVENLY COMB MACHINE OPERATOR-TELEVISION ENGINEERING TEACHER [facility] 03-25-2023 12:16-0500 Diastolic Blood Pressure Non-Invasive 74 mm[Hg] CORNELL HEAVENLY COMB MACHINE OPERATOR-TELEVISION ENGINEERING TEACHER [facility] 03-25-2023 12:16-0500 Heart rate 58 /min CORNELL HEAVENLY COMB MACHINE OPERATOR-TELEVISION ENGINEERING TEACHER [facility] 03-25-2023 12:16-0500 Reason For Taking VItal Signs CORNELL HEAVENLY COMB MACHINE OPERATOR-TELEVISION ENGINEERING TEACHER [facility] 03-25-2023 12:16-0500 Respiratory rate 18 /min CORNELL HEAVENLY COMB MACHINE OPERATOR-TELEVISION ENGINEERING TEACHER [facility] 03-25-2023 12:16-0500 Systolic Blood Pressure Non-Invasive 159 mm[Hg] CORNELL HEAVENLY COMB MACHINE OPERATOR-TELEVISION ENGINEERING TEACHER [facility] 03-25-2023 12:11-0500 Diastolic Blood Pressure Non-Invasive 78 mm[Hg] CORNELL BURDICK APRN-TELEVISION ENGINEERING TEACHER [facility] 03-25-2023 12:11-0500 Heart rate 68 /min CORNELL BURDICK APRN-TELEVISION ENGINEERING TEACHER [facility] [facility] 03-25-2023 12:11-0500 Respiratory rate 24 /min CORNELL BURDICK COMB MACHINE OPERATOR-TELEVISION ENGINEERING TEACHER [facility] 03-25-2023 12:11-0500 Systolic Blood Pressure Non-Invasive 143 mm[Hg] CORNELL BURDICK COMB MACHINE OPERATOR-TELEVISION ENGINEERING TEACHER [facility] 03-25-2023 12:08-0500 Heart rate 74 /min CORNELL BURDICK APRN-TELEVISION ENGINEERING TEACHER [facility] 03-25-2023 11:38-0500 Body height 152.4 cm CORNELL BURDIKC APRN-TELEVISION ENGINEERING TEACHER [facility] 03-25-2023 11:38-0500 Body weight 109 kg CORNELL BURDICK APRN-TELEVISION ENGINEERING TEACHER [facility] 03-25-2023 11:38-0500 Body weight 46.93 kg/m2 CORNELL BURDICK APRN-TELEVISION ENGINEERING TEACHER [facility] 03-25-2023 11:38-0500 Heart rate 73 /min CORNELL BURDICK COMB MACHINE OPERATOR-TELEVISION ENGINEERING TEACHER [facility] 03-12-2023 13:27-0500 Body height 154.[address] Elmer Richards Work Phone: [facility] 03-12-2023 13:25-0500 Body mass index (BMI) [Ratio] 46.1 kg/m2 Dr. Elmer Richards Work Phone: [facility] 03-12-2023 13:25-0500 Body weight 110.[address] Elmer Richards Work Phone: [facility] 03-12-2023 13:25-0500 Diastolic blood pressure 78 mm[Hg] Dr. Elmer Richards Work Phone: [facility] 03-12-2023 13:25-0500 Systolic blood pressure 152 mm[Hg] Dr. Elmer Richards Work Phone: [facility] 02-28-2023 08:28-0400 Body height 154.[address] Elmer Richards Work Phone: [phone] [address] 02-28-2023 08:28-0400 Body mass index (BMI) [Ratio] 44.7 kg/m2 Dr. Elmer Richards Work Phone: [phone] [address] 02-28-2023 08:28-0400 Body weight 107.[address] Elmer Richards Work Phone: [facility] 02-28-2023 08:28-0400 Diastolic blood pressure 76 mm[Hg] Dr. Elmer Richards Work Phone: [facility] 02-28-2023 08:28-0400 Heart rate 62 /min Dr. Elmer Richards Work Phone: [facility] 02-28-2023 08:28-0400 Respiratory rate 18 /min Dr. Elmer Richards Work Phone: [facility] 02-28-2023 08:28-0400 SaO2% (BldA) [Mass fraction] 98 % Dr. Elmer Richards Work Phone: [facility] 02-28-2023 08:28-0400 Systolic blood pressure 115 mm[Hg] Dr. Elmer Richards Work Phone: [facility] 02-05-2023 09:07-0400 Blood Pressure Cuff Size DR CHRISTINA JENNINGS MD [facility] 02-05-2023 09:07-[address] CHRISTINA JENNINGS MD [facility] Management 02-05-2023 09:07-[address] CHRISTINA JENNINGS MD [facility] Management 02-05-2023 09:07-0400 Diastolic Blood Pressure Non-Invasive [address] CHRISTINA JENNINGS MD [facility] Management 02-05-2023 09:07-0400 Heart rate 64 /min DR CHRISTINA JENNINGS MD [facility] Management 02-05-2023 09:07-0400 Respiratory rate 16 /min DR CHRISTINA JENNINGS MD [facility] Management 02-05-2023 09:07-0400 Systolic Blood Pressure Non-Invasive [address] CHRISTINA JENNINGS MD [facility] Management 02-05-2023 09:06-0400 Blood Pressure Cuff Size DR CHRISTINA JENNINGS MD [facility] Management 02-05-2023 09:06-[address] CHRISTINA JNENINGS MD [facility] Management 02-05-2023 09:06-[address] CHRISTINA JENNINGS MD [facility] Management 02-05-2023 09:06-0400 Diastolic Blood Pressure Non-Invasive [address] CHRISTINA JENNINGS MD [facility] 02-05-2023 09:06-0400 Heart rate 62 /min DR CHRISTINA JENNINGS MD [facility] Management 02-05-2023 09:06-0400 Respiratory rate 19 /min DR CHRISTINA JENNINGS MD [facility] Management 02-05-2023 09:06-0400 Systolic Blood Pressure Non-Invasive [address] CHRISTINA JENNINGS MD [facility] Management 02-05-2023 08:59-0400 Diastolic Blood Pressure Non-Invasive [address] CHRISTINA JENNINGS MD [facility] Management 02-05-2023 08:59-0400 Heart rate 57 /min DR CHRISTINA JENNINGS MD [facility] 02-05-2023 08:59-0400 Respiratory rate 16 /min DR CHRISTINA JENNINGS MD [facility] 02-05-2023 08:59-0400 Systolic Blood Pressure Non-Invasive [address] CHRISTINA JENNINGS MD [facility] 02-05-2023 08:57-0400 Blood Pressure Cuff Size DR CHRISTINA JENNINGS MD [facility] 02-05-2023 08:57-[address] CHRISTINA JENNINGS MD [facility] 02-05-2023 08:57-[address] CHRISTINA JENNINGS MD [facility] 02-05-2023 08:57-0400 Heart rate 64 /min DR CHRISTINA JENNINGS MD [facility] Management 02-05-2023 08:09-0400 Body height [address] CHRISTINA JENNINGS MD [facility] 02-05-2023 08:09-0400 Body weight 107.[address] CHRISTINA JENNINGS MD [facility] Management 02-05-2023 08:09-0400 Body weight 36.37 kg/m2 DR CHRISTINA JENNINGS MD [facility] Management 02-05-2023 08:09-0400 Heart rate 70 /min DR CHRISTINA JENNINGS MD [facility] 01-21-2023 10:21-0400 Body height 154.[address] Elmer Richards Work Phone: [facility] 01-21-2023 10:21-0400 Body mass index (BMI) [Ratio] 45.7 kg/m2 Dr. Elmer Richards Work Phone: [facility] 01-21-2023 10:21-0400 Body temperature 98.3 [degF] Dr. Elmer Richards Work Phone: [facility] 01-21-2023 10:21-0400 Body weight 109.[address] Elmer Richards Work Phone: [facility] 01-21-2023 10:21-0400 Diastolic blood pressure 92 mm[Hg] Dr. Elmer Richards Work Phone: [facility] 01-21-2023 10:21-0400 Heart rate 78 /min Dr. Elmer Richards Work Phone: [facility] 01-21-2023 10:21-0400 Respiratory rate 18 /min Dr. Elmer Richards Work Phone: [facility] 01-21-2023 10:21-0400 SaO2% (BldA) [Mass fraction] 97 % Dr. Elmer Richards Work Phone: [facility] 01-21-2023 10:21-0400 Systolic blood pressure 150 mm[Hg] Dr. Elmer Richards Work Phone: [facility] 11-09-2022 13:19-0400 Blood Pressure Cuff Size DR CHRISTINA JENNINGS MD [facility] 11-09-2022 13:19-[address] CHRISTINA JENNINGS MD [facility] 11-09-2022 13:19-[address] CHRISTINA JENNINGS MD [facility] 11-09-2022 13:19-0400 Diastolic Blood Pressure Non-Invasive [address] CHRISTINA JENNINGS MD [facility] 11-09-2022 13:19-0400 Heart rate 60 /min DR CHRISTINA JENNINGS MD [facility] 11-09-2022 13:19-0400 Respiratory rate 22 /min DR CHRISTINA JENNINGS MD [facility] 11-09-2022 13:19-0400 Systolic Blood Pressure Non-Invasive [address] CHRISTINA JENNINGS MD [facility] 11-09-2022 13:17-0400 Blood Pressure Cuff Size DR CHRISTINA JENNINGS MD [facility] 11-09-2022 13:17-[address] CHRISTINA JENNINGS MD [facility] 11-09-2022 13:17-[address] CHRISTINA JENNINGS MD [facility] 11-09-2022 13:17-0400 Diastolic Blood Pressure Non-Invasive [address] CHRISTINA JENNINGS MD [facility] 11-09-2022 13:17-0400 Heart rate 60 /min DR CHRISTINA JENNINGS MD [facility] 11-09-2022 13:17-0400 Respiratory rate 25 /min DR CHRISTINA JENNINGS MD [facility] 11-09-2022 13:17-0400 Systolic Blood Pressure Non-Invasive [address] CHRISTINA JENNINGS MD [facility] 11-09-2022 13:13-0400 Diastolic Blood Pressure Non-Invasive [address] CHRISTINA JENNINGS MD [facility] 11-09-2022 13:13-0400 Heart rate 60 /min DR CHRISTINA JENNINGS MD [facility] 11-09-2022 13:13-0400 Respiratory rate 12 /min DR CHRISTINA JENNINGS MD [facility] 11-09-2022 13:13-0400 Systolic Blood Pressure Non-Invasive [address] CHRISTINA JENNINGS MD [facility] 11-09-2022 12:55-0400 Blood Pressure Cuff Size DR CHRISTINA JENNINGS MD [facility] 11-09-2022 12:55-[address] CHRISTINA JENNINGS MD [facility] 11-09-2022 12:55-[address] CHRISTINA JENNINGS MD [facility] 11-09-2022 12:55-0400 Heart rate 60 /min DR CHRISTINA JENNINGS MD [facility] 11-09-2022 12:06-0400 Body height 152.[address] CHRISTINA JENNINGS MD [facility] 11-09-2022 12:06-0400 Body weight [address] CHRISTINA JENNINGS MD [facility] 11-09-2022 12:06-0400 Body weight 46.07 kg/m2 DR CHRISTINA JENNINGS MD [facility] 07-13-2022 08:51-0500 Diastolic Blood Pressure Non-Invasive [address] CHRISTINA JENNINGS MD [facility] 07-13-2022 08:51-0500 Heart rate 65 /min DR CHRISTINA JENNINGS MD [facility] 07-13-2022 08:51-0500 Respiratory rate 19 /min DR CHRISTINA JENNINGS MD [facility] 07-13-2022 08:51-0500 Systolic Blood Pressure Non-Invasive [address] CHRISTINA JENNINGS MD [facility] 07-13-2022 08:35-0500 Diastolic Blood Pressure Non-Invasive [address] CHRISTINA JENNINGS MD [facility] 07-13-2022 08:35-0500 Heart rate 73 /min DR CHRISTINA JENNINGS MD [facility] 07-13-2022 08:35-0500 Reason For Taking VItal Signs DR CHRISTINA JENNINGS MD [facility] 07-13-2022 08:35-0500 Respiratory rate 12 /min DR CHRISTINA JENNINGS MD [facility] 07-13-2022 08:35-0500 Systolic Blood Pressure Non-Invasive [address] CHRISTINA JENNINGS MD [facility] 07-13-2022 08:29-0500 Diastolic Blood Pressure Non-Invasive [address] CHRISTINA JENNINGS MD [facility] 07-13-2022 08:29-0500 Heart rate 70 /min DR CHRISTINA JENNINGS MD [facility] 07-13-2022 08:29-0500 Respiratory rate 22 /min DR CHRISTINA JENNINGS MD [facility] 07-13-2022 08:29-0500 Systolic Blood Pressure Non-Invasive [address] CHRISTINA JENNINGS MD [facility] 07-13-2022 08:26-0500 Heart rate 66 /min DR CHRISTINA JENNINGS MD [facility] 07-13-2022 08:09-0500 Body height [address] CHRISTINA JENNINGS MD [facility] 07-13-2022 08:09-0500 Body weight [address] CHRISTINA JENNINGS MD [facility] 07-13-2022 08:09-0500 Body weight 44.12 kg/m2 DR CHRISTINA JENNINGS MD [facility] 07-13-2022 08:09-0500 Heart rate 70 /min DR CHRISTINA JENNINGS MD [facility] 03-19-2022 15:22-0500 Body height 154.[address] Elmer Richards Work Phone: [facility] Work Phone: 03-19-2022 15:22-0500 Body mass index (BMI) [Ratio] 43.2 kg/m2 Dr. Elmer Richards Work Phone: [facility] Work Phone: 03-19-2022 15:22-0500 Body weight 103.[address] Elmer Richards Work Phone: [facility] Work Phone: 03-19-2022 15:22-0500 Diastolic blood pressure 76 mm[Hg] Dr. Elmer Richards Work Phone: [facility] Work Phone: 03-19-2022 15:22-0500 Heart rate 59 /min Dr. Elmer Richards Work Phone: [facility] Work Phone: 03-19-2022 15:22-0500 Respiratory rate 16 /min Dr. Elmer Richards Work Phone: [facility] Work Phone: 03-19-2022 15:22-0500 Systolic blood pressure 134 mm[Hg] Dr. Elmer Richards Work Phone: [facility] Work Phone: 03-09-2022 09:38-0400 Diastolic Blood Pressure NBP [address]RI[address]INA JENNINGS MD [facility] 03-09-2022 09:38-0400 Heart rate 54 /min DR CHRISTINA JENNINGS MD [facility] 03-09-2022 09:38-0400 Respiratory rate 16 /min DR CHRISTINA JENNINGS MD [facility] 03-09-2022 09:38-0400 Systolic Blood Pressure NBP [address] CHRISTINA JENNINGS MD [facility] 03-09-2022 09:22-0400 diastolic 70 mm[Hg] DR CHRISTINA JENNINGS MD [facility] 03-09-2022 09:22-0400 Heart rate 54 /min DR CHRISTINA JENNINGS MD [facility] 03-09-2022 09:22-0400 Respiratory rate 13 /min DR CHRISTINA JENNINGS MD [facility] 03-09-2022 09:22-0400 systolic 132 mm[Hg] DR CHRISTINA JENNINGS MD [facility] 03-09-2022 09:11-0400 diastolic 83 mm[Hg] DR CHRISTINA JENNINGS MD [facility] 03-09-2022 09:11-0400 Heart rate 65 /min DR CHRISTINA JENNINGS MD [facility] 03-09-2022 09:11-0400 systolic 171 mm[Hg] DR CHRISTINA JENNINGS MD [facility] 03-09-2022 08:34-0400 Body height 152.[address] CHRISTINA JENNINGS MD [facility] 03-09-2022 08:34-0400 Body weight [address] CHRISTINA JENNINGS MD [facility] 03-09-2022 08:34-0400 Body weight 45.21 kg/m2 DR CHRISTINA JENNINGS MD [facility] 03-09-2022 08:34-0400 diastolic 92 mm[Hg] DR CHRISTINA JENNINGS MD [facility] 03-09-2022 08:34-0400 systolic 143 mm[Hg] DR CHRISTINA JENNINGS MD [facility] 01-16-2022 08:07-0400 Diastolic blood pressure 73 mm[Hg] DR CHRISTIAN JENNINGS MD [facility] 01-16-2022 08:07-0400 Heart rate 73 /min DR CHRISTINA JENNINGS MD [facility] 01-16-2022 08:07-0400 Respiratory rate 19 /min DR CHRISTINA JENNINGS MD [facility] 01-16-2022 08:07-0400 Systolic blood pressure 138 mm[Hg] DR CHRISTINA JENNINGS MD [facility] 01-16-2022 08:01-0400 Diastolic Blood Pressure NBP [address] CHRISTINA JENNINGS MD [facility] 01-16-2022 08:01-0400 Heart rate 66 /min DR CHRISTINA JENNINGS MD [facility] 01-16-2022 08:01-0400 Respiratory rate 25 /min DR CHRISTINA JENNINGS MD [facility] 01-16-2022 08:01-0400 Systolic Blood Pressure NBP [address] CHRISTINA JENNINGS MD [facility] 01-16-2022 07:46-0400 Diastolic blood pressure 88 mm[Hg] DR CHRISTINA JENNINGS MD [facility] 01-16-2022 07:46-0400 Heart rate 69 /min DR CHRISTINA JENNINGS MD [facility] 01-16-2022 07:46-0400 Respiratory rate 17 /min DR CHRISTINA JENNINGS MD [facility] 01-16-2022 07:46-0400 Systolic blood pressure 159 mm[Hg] DR CHRISTINA JENNINGS MD [facility] 01-16-2022 07:40-0400 Diastolic blood pressure 67 mm[Hg] DR CHRISTINA JENNINGS MD [facility] 01-16-2022 07:40-0400 Heart rate 68 /min DR CHRISTINA JENNINGS MD [facility] 01-16-2022 07:40-0400 Mean blood pressure 99 mm[Hg] DR CHRISTINA JENNINGS MD [facility] 01-16-2022 07:40-0400 Systolic blood pressure 164 mm[Hg] DR CHRISTINA JENNINGS MD [facility] 01-16-2022 07:09-0400 Body height 152.[address] CHRISTINA JENNINGS MD [facility] 01-16-2022 07:09-0400 Body weight 106.[address] CHRISTINA JENNINGS MD [facility] 01-16-2022 07:09-0400 Body weight 45.9 kg/m2 DR CHRISTINA JENNINGS MD [facility] 01-16-2022 07:09-0400 Heart rate 83 /min DR CHRISTINA JENNINGS MD [facility] 12-25-2021 13:47-0400 Body height 154.[address] Elmer Richards Work Phone: [facility] Work Phone: 12-25-2021 13:47-0400 Body mass index (BMI) [Ratio] 44.6 kg/m2 Dr. Elmer Richards Work Phone: [facility] Work Phone: 12-25-2021 13:47-0400 Body temperature 95.7 [degF] Dr. Elmer Richards Work Phone: [facility] Work Phone: 12-25-2021 13:47-0400 Body weight 107.[address] Elmer Richards Work Phone: [facility] Work Phone: 12-25-2021 13:47-0400 Diastolic blood pressure 83 mm[Hg] Dr. Elmer Richards Work Phone: [facility] Work Phone: 12-25-2021 13:47-0400 Heart rate 70 /min Dr. Elmer Richards Work Phone: [facility] Work Phone: 12-25-2021 13:47-0400 Respiratory rate 18 /min Dr. Elmer Richards Work Phone: [facility] Work Phone: 12-25-2021 13:47-0400 SaO2% (BldA) [Mass fraction] 93 % Dr. Elmer Richards Work Phone: [facility] Work Phone: 12-25-2021 13:47-0400 Systolic blood pressure 168 mm[Hg] Dr. Elmer Richards Work Phone: [facility] Work Phone: 12-07-2021 15:03-0400 Body height 154.[address] Elmer Richards Work Phone: [facility] Work Phone: 12-07-2021 15:03-0400 Body mass index (BMI) [Ratio] 43.8 kg/m2 Dr. Elmer Richards Work Phone: [facility] Work Phone: 12-07-2021 15:03-0400 Body weight 105.[address] Elmer Richards Work Phone: [facility] Work Phone: 12-07-2021 15:03-0400 Diastolic blood pressure 64 mm[Hg] Dr. Elmer Richards Work Phone: [facility] Work Phone: 12-07-2021 15:03-0400 Heart rate 70 /min Dr. Elmer Richards Work Phone: [facility] Work Phone: 12-07-2021 15:03-0400 Respiratory rate 16 /min Dr. Elmer Richards Work Phone: [facility] Work Phone: 12-07-2021 15:03-0400 Systolic blood pressure 116 mm[Hg] Dr. Elmer Richards Work Phone: [facility] Work Phone: 11-14-2021 09:48-0400 Diastolic Blood Pressure NBP 74 1 CORNELL BURDICK APRN-TELEVISION ENGINEERING TEACHER [facility] 11-14-2021 09:48-0400 Heart rate 73 /min CORNELL BURDICK APRN-TELEVISION ENGINEERING TEACHER [facility] 11-14-2021 09:48-0400 Respiratory rate 18 /min CORNELL BURDICK COMB MACHINE OPERATOR-TELEVISION ENGINEERING TEACHER [facility] 11-14-2021 09:48-0400 Systolic Blood Pressure NBP 132 1 CORNELL BURDICK COMB MACHINE OPERATOR-TELEVISION ENGINEERING TEACHER [facility] 11-14-2021 09:39-0400 Diastolic Blood Pressure NBP 74 1 CORNELL BURDICK COMB MACHINE OPERATOR-TELEVISION ENGINEERING TEACHER [facility] 11-14-2021 09:39-0400 Heart rate 71 /min CORNELL BURDICK COMB MACHINE OPERATOR-TELEVISION ENGINEERING TEACHER [facility] Management 11-14-2021 09:39-0400 Reason For Taking VItal Signs CORNELL BURDICK COMB MACHINE OPERATOR-TELEVISION ENGINEERING TEACHER [facility] Management 11-14-2021 09:39-0400 Respiratory rate 20 /min CORNELL BURDICK COMB MACHINE OPERATOR-TELEVISION ENGINEERING TEACHER [facility] Management 11-14-2021 09:39-0400 Systolic Blood Pressure NBP 121 1 CORNELL BURDICK COMB MACHINE OPERATOR-TELEVISION ENGINEERING TEACHER [facility] Management 11-14-2021 09:27-0400 diastolic 77 mm[Hg] CORNELL BURDICK COMB MACHINE OPERATOR-TELEVISION ENGINEERING TEACHER [facility] 11-14-2021 09:27-0400 Heart rate 70 /min CORNELLAmber BURDICK COMB MACHINE OPERATOR-TELEVISION ENGINEERING TEACHER [facility] Management 11-14-2021 09:27-0400 Respiratory rate 16 /min CORNELL BURDICK COMB MACHINE OPERATOR-TELEVISION ENGINEERING TEACHER [facility] 11-14-2021 09:27-0400 systolic 134 mm[Hg] CORNELL BURDICK COMB MACHINE OPERATOR-TELEVISION ENGINEERING TEACHER [facility] 11-14-2021 09:22-0400 diastolic 47 mm[Hg] CORNELLAmber BURDICK COMB MACHINE OPERATOR-TELEVISION ENGINEERING TEACHER [facility] Management 11-14-2021 09:22-0400 Heart rate 80 /min CORNELLAmber BURDICK COMB MACHINE OPERATOR-TELEVISION ENGINEERING TEACHER [facility] Management 11-14-2021 09:22-0400 systolic 129 mm[Hg] CORNELLAmber BURDICK COMB MACHINE OPERATOR-TELEVISION ENGINEERING TEACHER [facility] Management 11-14-2021 08:58-0400 Body height 155 cm CORNELL HEAVENLY COMB MACHINE OPERATOR-TELEVISION ENGINEERING TEACHER [facility] 11-14-2021 08:58-0400 Body weight 106.1 kg CORNELL BURDICK [facility] 11-14-2021 08:58-0400 Body weight 44.16 kg/m2 CORNELL BURDICK [facility] 11-14-2021 08:58-0400 diastolic 55 mm[Hg] CORNELL BURDICK [facility] 11-14-2021 08:58-0400 Heart rate 77 /min CORNELL BURDICK [facility] 11-14-2021 08:58-0400 systolic 114 mm[Hg] CORNELL NERIETTA [facility] Encounters Encounter Date Encounter Type Care Provider Facility Start: 02-19-2025 End: 02-19-2025 ambulatory ELMER Yovani RICHARDS Facility:[facility] Start: 02-17-2025 End: 02-17-2025 ambulatory ELMERJEROD RICHARDS Facility:[facility] Start: 02-16-2025 End: 02-16-2025 ambulatory Elmer Richards Facility:[facility] Start: 02-16-2025 End: 02-16-[address] Michael Liu MD -[facility] Work Phone: Start: 02-11-2025 End: 02-11-2025 Emergency department patient visit ELMER Yovani RICHARDS Facility:[facility] Start: 02-10-2025 End: 02-10-2025 Evaluation and management of inpatient ELMERJEROD RICHARDS Facility:[facility] Start: 01-27-2025 End: 01-27-2025 ambulatory LYNDSEY SILVESTREKAT [place] Facility:[facility] Start: 01-25-2025 End: 01-25-2025 ambulatory LYNDSEY H KONRADKAT [place] Facility:[facility] Start: 01-14-2025 End: 01-15-2025 ambulatory Ayaan Moreland MD Work Phone: Pain Management Comment on above: Requesting me to [facility] for an appt. (over month away) - Question Start: 01-11-2025 End: 01-12-2025 [facility] [employer] Lyndsey Silvestreajit Desai PhD Work Phone: [facility] Management Comment on above: Depression, unspecif ied depression type (Primary Dx); Pain disorder associated with psychological and physical factors; Status post lumbar spine operative procedure for decompression of spinal cord Pain Start: 12-12-2024 End: 12-12-[address] Elmer Richards MD Work Phone: -[facility] Start: 12-12-2024 End: 12-12-[address] Michael Liu MD -[facility] Work Phone: Start: 12-02-2024 End: 12-02-2024 [facility] Lyndsey Akdemia Yuly Desai PhD Work Phone: Pain Management Comment on above: Depression, unspecif ied depression type (Primary Dx); Pain disorder associated with psychological and physical factors Start: 12-01-2024 End: 12-01-2024 Office outpatient visit 15 minutes Ayaan Moreland MD Work Phone: Pain Management Comment on above: Status post lumbar s pine operative procedure for decompression of spinal cord (Primary Dx); Post laminectomy syndrome; MS (multiple sclerosis) (HCC); Radiculopathy, lumbar region; S/P cardiac pacemaker procedure; Depression, unspecified depression type; Pain disorder associated with psychological and physical factors Start: 12-01-2024 End: 12-01-2024 ambulatory ELMER RICHARDS Facility:[facility] Start: 11-19-2024 End: 11-19-2024 Patient encounter procedure Josey GALOC -[facility] Work Phone: Start: 11-19-2024 End: 11-19-[address] Elmer Richards MD Work Phone: -[facility] Start: 11-18-2024 End: 11-18-2024 Patient encounter procedure Dyana Moran MD Work Phone: [facility] Comment on above: ROBBI positive (Primar y Dx); Raynaud's phenomenon without gangrene; Dry eye syndrome of both eyes; Fibromyalgia Start: 11-18-2024 End: 11-18-2024 Telemedicine consultation with patient Dyana Moran MD Work Phone: [facility]ology [facility] Start: 11-18-2024 End: 11-18-2024 ambulatory DYANA MORAN Facility:[facility] Start: 11-17-2024 End: 11-17-2024 Patient encounter procedure Lyndsey Desai PhD Work Phone: Pain Management Comment on above: Depression, unspecif ied depression type (Primary Dx); Pain disorder associated with psychological and physical factors; Status post lumbar spine operative procedure for decompression of spinal cord; Post laminectomy syndrome Start: 11-17-2024 End: 11-17-2024 ambulatory LYNDSEY DESAI Facility:[facility] Start: 11-16-2024 End: 11-17-2024 Refill Marv Pretty APRN.CNP Work Phone: Neurosurgery Comment on above: Refill Request Start: 11-13-2024 End: 11-13-2024 Patient encounter procedure Stewart Franks PA-C Work Phone: Orthopaedics Comment on above: Primary osteoarthrit is of right knee (Primary Dx) Start: 11-13-2024 End: 11-13-2024 ambulatory ELMER RICHARDS Facility:[facility] Start: 11-11-2024 End: 11-11-[address] Elmer Richards MD Work Phone: -[facility] Start: 11-11-2024 End: 11-11-2024 Patient encounter procedure Paresh Joshua [facility] Work Phone: Start: 11-03-2024 End: 11-09-2024 Telephone encounter Ayaan Moreland MD Work Phone: Pain Management Comment on above: Clinical Update (Out side medical records including ov notes and imaging results) Start: 10-29-2024 End: 10-29-2024 E-mail encounter from caregiver Stewart Franks PA-C Work Phone: Orthopaedics Start: 10-29-2024 End: 10-29-2024 Patient encounter procedure Stewart Franks PA-C Work Phone: Orthopaedics Comment on above: Appointment Request Start: 10-22-2024 End: 10-22-2024 ambulatory DYANA MORAN Facility:[facility] Start: 10-22-2024 End: 10-22-2024 Subsequent hospital visit by physician Xr [facility] Comment on above: Pain in joint, multi ple sites [M25.50] Start: 10-22-2024 End: 10-22-2024 Patient encounter procedure Dyana Moran MD Work Phone: [facility] Comment on above: Pain in joint, multi ple sites (Primary Dx); Vitamin D deficiency; ROBBI positive; Elevated rheumatoid factor; Fibromyalgia; Malaise and fatigue; Multiple sclerosis (HCC); Primary osteoarthritis of right knee; Presence of cardiac pacemaker; Dry eye syndrome of both eyes; Raynaud's disease without gangrene Start: 10-22-2024 End: 10-22-2024 ambulatory [facility] Facility:[facility] Start: 10-16-2024 End: 10-16-2024 Patient encounter procedure Stewart Franks PA-C Work Phone: Orthopaedics Comment on above: Primary osteoarthrit is of right knee (Primary Dx); BMI 45.0-49.9, adult (HCC) Start: 10-16-2024 End: 10-16-2024 ambulatory STEWART FRANKS Facility:[facility] Start: 10-13-2024 End: 10-13-2024 Patient encounter procedure Ayaan Moreland MD Work Phone: Pain Management Comment on above: Post laminectomy syn drome (Primary Dx); Status post lumbar spine operative procedure for decompression of spinal cord; Pain disorder associated with psychological and physical factors; Radiculopathy, lumbar region; MS (multiple sclerosis) (HCC); S/P cardiac pacemaker procedure; Presence of cardiac pacemaker; Obesity, Class III, BMI >= 40 Start: 10-13-2024 End: 10-13-2024 ambulatory ELMER RICHARDS Facility:[facility] Start: 10-09-2024 End: 11-17-2024 Admission to same day surgery center Shawn Everett MD Work Phone: Neurosurgery Comment on above: Pain Results from ER visi t Start: 10-09-2024 End: 11-17-2024 ambulatory Shawn Everett MD Work Phone: Neurosurgery Start: 10-09-2024 End: 10-09-2024 Telephone encounter Stewart Franks PA-C Work Phone: Orthopaedics Comment on above: Appointment (Follow- up right knee pain. ) Start: 10-09-2024 End: 10-09-2024 Emergency department patient visit Dr. Elmer Richards MD Work Phone: -Emergency Department Work Phone: Start: 10-07-2024 End: 10-07-2024 Patient encounter procedure ZINA GRANDE MD [facility] Start: 10-07-2024 End: 10-07-2024 ambulatory ZINA GRANDE MD Facility:[facility] Start: 10-05-2024 End: 10-05-2024 Telephone encounter Stewart Franks PA-C Work Phone: [facility] Comment on above: Insurance Authorizat ion (Prior Auth Delayed Additional Information Needed Requested) Start: 09-29-2024 End: 09-29-2024 Telephone encounter Ayaan Moreland MD Work Phone: Pain Management Comment on above: Appointment Start: 09-28-2024 End: 09-29-2024 Admission to same day surgery center Shawn Everett MD Work Phone: Neurosurgery Comment on above: Medication Start: 09-28-2024 End: 09-29-2024 ambulatory Shawn Everett MD Work Phone: Neurosurgery Start: 09-28-2024 End: 09-29-2024 Refill Satish Pace PA-C Work Phone: Spine Surgery Comment on above: Refill Request Start: 09-22-2024 End: 09-23-2024 ambulatory ELMER RICHARDS Facility:[facility] Start: 09-11-2024 End: 09-11-[address] Elmer Richards MD Work Phone: [facility] Work Phone: Start: 09-11-2024 End: 09-11-[address] Michael Liu MD -[facility] Work Phone: Start: 09-10-2024 End: 09-11-2024 ambulatory Stewart Franks PA-C Work Phone: Orthopaedics Comment on above: Right Knee Start: 09-02-2024 End: 09-02-2024 Patient encounter procedure Stewart Franks PA-C Work Phone: Orthopaedics Comment on above: Primary osteoarthrit is of right knee (Primary Dx) Start: 09-02-2024 End: 09-02-2024 ambulatory ELMER RICHARDS Facility:[facility] Start: 09-01-2024 End: 09-02-2024 Admission to same day surgery center Shawn Everett MD Work Phone: Neurosurgery Comment on above: Fell Start: 09-01-2024 End: 09-02-2024 ambulatory Shawn Everett MD Work Phone: Neurosurgery Start: 08-31-2024 End: 09-01-2024 ambulatory [facility] [place] Comment on above: Pain Start: 08-31-2024 End: 09-02-2024 Refill Soo Fang APRN.CNP Work Phone: Neurosurgery Comment on above: Refill Request Start: 08-31-2024 End: 08-31-[address] Elmer Richards MD -Cat Scan [facility] Work Phone: Start: 08-31-2024 End: 08-31-2024 ambulatory Elmer Richards Facility:[facility] Start: 2024 End: 2024 Patient encounter procedure Satish Pace PA-C Work Phone: Spine Surgery Comment on above: Spinal stenosis, lum bar region with neurogenic claudication (Primary Dx) Start: 2024 End: 09-01-2024 ambulatory [facility] [place] Comment on above: The steroids did not come to [facility]...just the pain meds. Meds Start: 08-20-2024 End: 08-21-2024 Refill Lion Sampson PA-C Work Phone: Neurosurgery Comment on above: Refill Request Start: 08-10-2024 End: 08-10-[address] [facility] Facility:[facility] Start: 08-06-2024 Encounter for preprocedural cardiovascular examination Giovanni Ji NP [facility] Start: 08-06-2024 End: 08-06-2024 Patient encounter procedure Giovanni Ji TUNGSTEN TENDER-C -[facility] Work Phone: Start: 08-06-2024 End: 08-06-2024 Patient encounter status Giovanni Ji TUNGSTEN TENDER-C [facility] Start: 08-06-2024 End: 08-06-2024 ambulatory [facility] Facility:[facility] Start: 08-05-2024 End: 08-06-2024 Admission to same day surgery center Shawn Everett MD Work Phone: Neurosurgery Comment on above: Question about getti erich yovani shialazian removed tomorrow Pain Start: 08-05-2024 End: 08-06-2024 ambulatory Shawn Everett MD Work Phone: Neurosurgery Start: 08-03-2024 End: 08-05-2024 Telephone encounter Dhaval Licona APRN.CNP Work Phone: [facility] [place] Comment on above: Pre-Op Teaching (DOS 08/10/2024) Appointment Start: 07-30-2024 End: 07-30-2024 Telephone encounter Sisi Truong LPN Pre Anesthesia Start: 07-28-2024 End: 07-28-2024 Telephone encounter Mae Lopez APRN.CNP Work Phone: Pre Anesthesia Start: 07-27-2024 End: 07-27-2024 ambulatory ELMER Yovani ANNA Facility:[facility] Start: 07-27-2024 Encounter for other preprocedural examination STEWART FRANKS [facility] Start: 07-27-2024 End: 07-27-2024 Telephone encounter Sisi Truong LPN Pre Anesthesia Comment on above: Cardiac optimization letter Start: 07-27-2024 End: 07-27-2024 Admission to establishment [place] [id number] Pre Anesthesia Start: 07-27-2024 End: 07-27-2024 Anesthesia consultation [place] [id number] Pre Anesthesia Comment on above: Pre-op evaluation (P rimary Dx); Difficult intravenous access; PONV (postoperative nausea and vomiting); Presence of cardiac pacemaker; Rheumatoid arthritis, involving unspecified site, unspecified whether rheumatoid factor present ([facility]); Coronary-myocardial bridge; Essential (primary) hypertension; Former smoker; Anxiety; 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; Hyperlipidemia, unspecified hyperlipidemia type; MS (multiple sclerosis) ([facility]); Obesity, Class III, BMI >= 40; Systemic lupus erythematosus, unspecified SLE type, unspecified organ involvement status ([facility]); Paroxysmal atrial fibrillation ([facility]); History of syncope Start: 07-27-2024 End: 07-27-2024 Preprocedural examination done [address] Work Phone: Start: 07-21-2024 [facility] Elmer Richards Facility:[facility] Start: 07-20-2024 End: 07-20-2024 Telephone encounter Stewart Franks PA-C Work Phone: Orthopaedic Surgery [facility] Comment on above: Emergency Situation Start: 07-20-2024 End: 07-21-2024 ambulatory ADELINE IBRAHIM DO Facility:[id number] Start: 07-20-2024 End: 07-20-2024 ambulatory ELMER RICHARDS Facility:[facility] Start: 07-20-2024 End: 07-20-2024 Subsequent hospital visit by physician [facility] July 1 Xray [facility] Comment on above: Right knee pain, uns pecified chronicity [M25.561] Start: 07-17-2024 End: 07-17-2024 Orders Only Stewart Franks PA-C Work Phone: Orthopaedics Comment on above: Right knee pain, uns pecified chronicity (Primary Dx) Start: 07-13-2024 End: 07-17-2024 Admission to same day surgery center Shawn Everett MD Work Phone: Neurosurgery Comment on above: Upcoming back surger y - continued pain in right leg Start: 07-13-2024 End: 07-17-2024 ambulatory Shawn Everett MD Work Phone: Neurosurgery Start: 07-07-2024 End: 07-07-2024 Telephone encounter Shawn Everett MD Work Phone: Neurosurgery Comment on above: Preparations For Aydee zonia Start: 06-22-2024 End: 06-23-2024 Admission to same day surgery center Shawn Everett MD Work Phone: Neurosurgery Comment on above: Pain associated with my spine/ lower back Start: 06-22-2024 End: 06-23-2024 ambulatory Shawn Everett MD Work Phone: Neurosurgery Start: 06-20-2024 End: 06-20-2024 Subsequent hospital visit by physician Farhad Nava [facility] Comment on above: Shortness of breath Start: 06-20-2024 End: 06-20-2024 ambulatory VLADIMIR JACQUES [facility] Start: 06-13-2024 End: 06-13-2024 ambulatory Elmer Richards Facility:[facility] Start: 06-13-2024 End: 06-13-[address] Michael Liu MD -[facility] Work Phone: Start: 06-08-2024 End: 06-08-2024 Patient encounter status Shawn Everett MD Work Phone: [facility] Start: 06-08-2024 End: 06-08-2024 Patient Update Shawn Everett MD Work Phone: Neurosurgery Comment on above: Orders Start: 06-08-2024 End: 06-08-2024 Preoperative state Shawn Everett MD Work Phone: [facility] Start: 05-19-2024 End: 05-19-2024 Telephone encounter Shawn Everett MD Work Phone: Neurosurgery Comment on above: Schedule Surgery Start: 05-18-2024 End: 05-18-2024 ambulatory Elmer Richards Facility:[facility] Start: 05-05-2024 ambulatory Elmer Richards Facility:[facility] Start: 04-16-2024 End: 04-16-2024 ambulatory SHAWN EVERETT Facility:[facility] Start: 04-16-2024 End: 04-16-2024 Office outpatient visit 25 minutes Shawn Everett MD Work Phone: Neurosurgery Comment on above: Spinal stenosis, lum bar region with neurogenic claudication (Primary Dx) Start: 04-15-[address] Elmer Richards MD Work Phone: [facility] Start: 04-15-2024 End: 04-15-2024 ambulatory Elmer Richards Facility:[facility] Start: 04-15-2024 End: 04-15-2024 ambulatory Elmer Richards Facility:[facility] Start: 04-14-2024 End: 04-14-2024 Telephone encounter Shawn Everett MD Work Phone: Neurosurgery Start: 04-13-2024 End: 04-15-2024 Telephone encounter Shawn Everett MD Work Phone: Neurosurgery Comment on above: Patient Question Start: 04-03-2024 End: 04-03-2024 ambulatory SHAWN EVERETT Facility:[facility] Start: 04-03-2024 End: 04-03-2024 Office outpatient new 45 minutes Shawn Everett MD Work Phone: [facility] [place] Comment on above: Spinal stenosis, lum bar region with neurogenic claudication (Primary Dx) Start: 03-24-2024 ambulatory TATO CARRANZA MD Facilit y:A Start: 03-20-2024 ambulatory ELMER RICHARDS MD Facilit y:A Start: 03-13-2024 End: 03-13-2024 ambulatory Michael Liu Facility:[facility] Start: 03-10-2024 ambulatory Josey Lynn Facility :[facility] Start: 03-09-2024 End: 03-11-2024 Chart abstracting Unk Pcp (Hist) Neurology Start: 02-26-2024 End: 02-26-2024 ambulatory TATO CARRANZA MD Facility:A Start: 02-26-2024 End: 02-26-2024 Patient encounter [facility] Start: 02-24-2024 End: 02-24-2024 ambulatory ELMER RICHARDS MD Facility:A Start: 02-24-2024 End: 02-24-2024 Patient encounter procedure IVAN SEVERINO MD [facility] Start: 02-21-2024 End: 02-21-2024 Patient encounter procedure MARQUITA VERGARA COMB MACHINE OPERATOR-COUNSELING CASE MANAGER [facility] Start: 02-21-2024 End: 02-21-2024 ambulatory ELMER RICHARDS MD Facility:A Start: 02-12-2024 End: 02-28-2024 ambulatory IONA URRUTIA MD Facility:A Start: 02-05-2024 End: 02-05-2024 ambulatory ELMER RICHARDS MD Facility:[facility] Start: 02-05-2024 End: 02-05-2024 Patient encounter procedure IVAN SEVERINO MD [facility] Start: 01-23-2024 End: 01-23-2024 ambulatory ELMER RICHARDS MD Facility:A Start: 01-23-2024 End: 01-23-2024 Patient encounter procedure MARQUITA VERGARA COMB MACHINE OPERATOR-COUNSELING CASE MANAGER [facility] Start: 01-07-2024 ambulatory IONA ZULETA MD Facility:A Start: 12-16-2023 End: 12-20-2023 ambulatory RJ WHALEY MD Facility:A Start: 12-16-2023 End: 12-16-2023 ambulatory ELMER RICHARDS MD Facility:A Start: 12-16-2023 End: 12-16-2023 ambulatory IONA URRUTIA MD Facility:A Start: 12-16-2023 End: 12-16-2023 Patient encounter procedure IONA URRUTIA MD [facility] Pain Management Start: 10-21-2023 End: 10-21-2023 ambulatory ELMER RICHARDS MD Facility:A Start: 10-21-2023 End: 10-21-[address] CHRISTINA JENNINGS MD [facility] Pain Management Start: 10-07-2023 End: 10-07-2023 ambulatory SISI RAMAN COMB MACHINE OPERATOR-COUNSELING CASE MANAGER Facility:B Start: 10-07-2023 End: 10-07-2023 Patient encounter procedure SISI RAMAN COMB MACHINE OPERATOR-COUNSELING CASE MANAGER [facility] Start: 10-01-2023 ambulatory Dhaval Licona COMB MACHINE OPERATOR.COUNSELING CASE MANAGER Work Phone: [facility] [place] Comment on above: Dr. bennett Start: 09-13-2023 Telephone encounter Tyler jimenes MD Work Phone: [facility] [place] Comment on above: Petal Shaper Hand - O ther Start: 09-12-2023 Follow-up encounter Tyler jimenes MD Work Phone: [facility]ED Start: 09-12-2023 Patient encounter procedure Tyler Baer MD Work Phone: [facility] Start: 09-11-2023 Telephone encounter Tyler jimenes MD Work Phone: [facility] Comment on above: Wound Check Start: 09-05-2023 End: 09-05-2023 Patient encounter procedure Dhaval Licona COMB MACHINE OPERATOR.COUNSELING CASE MANAGER Work Phone: [facility] [place] Comment on above: Presence of cardiac pacemaker (Primary Dx); Malfunction of cardiac pacemaker, subsequent encounter; Rheumatoid arthritis, involving unspecified site, unspecified whether rheumatoid factor present (HCC); Systemic lupus erythematosus, unspecified SLE type, unspecified organ involvement status (HCC); Obesity, Class III, BMI >= 40; Other fatigue; Essential (primary) hypertension Start: 09-03-2023 End: 09-04-[address] Elmer Richards Work Phone: [facility] Work Phone: Start: 09-03-2023 End: 09-04-[address] CHRISTINA JENNINGS MD [facility] Pain Management Start: 08-26-2023 End: 08-26-2023 ambulatory LEMER RICHARDS MD Facility:[facility] Start: 08-26-2023 End: 08-26-2023 Patient encounter procedure IVAN SEVERINO MD [facility] Start: 08-26-2023 Telephone encounter Tyler jimenes MD Work Phone: [facility] [place] Comment on above: Preparations For Pro cedures Start: 08-05-2023 End: 08-05-[address] Elmer Richards Work Phone: [facility] Work Phone: Start: 08-02-2023 Non-patient / Non-visit Dr. Alma Richards Work Phone: [facility] Start: 08-02-2023 End: 08-02-[address] Elmer Richards Work Phone: [facility] Work Phone: Start: 08-02-2023 End: 08-02-[address] Elmer [facility]: Start: 07-30-2023 Telephone encounter Tyler jimenes MD Work Phone: [facility] [place] Comment on above: Treatment Planning Start: 07-18-2023 End: 07-18-2023 Patient encounter procedure Tyler Baer MD Work Phone: [facility] [place] Comment on above: Bradycardia (Primary Dx); Atrioventricular block, second degree; Mobitz type 2 second degree AV block; Right bundle branch block (RBBB) with left anterior fascicular block (LAFB); Presence of cardiac pacemaker; Malfunction of electrode lead of cardiac pacemaker; Palpitations; Obesity, Class III, BMI >= 40 Start: 07-17-2023 Chart abstracting Bailee Garza [facility] [place] Start: 07-12-2023 End: 07-12-[address] [facility]mer Richards [facility] Work Phone: Start: 07-04-2023 End: 07-04-[address] CHRISTINA JENNINGS MD Facility:A Start: 07-04-2023 End: 07-04-[address] CHRISTINA JENNINGS MD [facility] Pain Management Start: 07-03-2023 Telephone encounter Ag Card Work Phone: [facility] [place] Start: 07-02-2023 End: 07-02-2023 ambulatory ELMER RICHARDS MD Facility:[facility] Start: 07-02-2023 End: 07-02-2023 Patient encounter procedure BERNARD ACUÑA PA-C [facility] Start: 07-01-2023 End: 07-01-[address] Elmer Richards [facility] Work Phone: Start: 06-27-2023 End: 06-27-[address] Elmer Richards Work Phone: [facility] Work Phone: Start: 06-26-2023 Telephone encounter Davin grover MD Work Phone: Cardiology Comment on above: Patient Update (Anh ent states he needs an MRI, but unable to get done because of Fx lead. BSX told patient to contact us regarding repair. Please call patient at [phone]) Start: 06-19-2023 ambulatory ELMER RICHARDS MD Facilit y:A Start: 05-06-2023 End: 05-06-[address] Elmer Richards Work Phone: [facility] Work Phone: Start: 04-01-2023 Follow-up encounter Davin grover MD Work Phone: [facility] Start: 04-01-2023 Patient encounter procedure Davin Montanez MD Work Phone: [facility] Department Start: 03-29-2023 Telephone encounter Davin grover MD Work Phone: Cardiology Comment on above: Received Outside Med ical Records (Imaging was pushed to [facility]) Start: 03-25-2023 End: 03-25-2023 ambulatory ELMER RICHARDS MD Facility:A Start: 03-25-2023 End: 03-25-2023 Minor Procedure CORNELL BURDICK APRN-[facility] Start: 03-15-2023 Orders Only Davin bledsoe MD Work Phone: Cardiology Comment on above: Paroxysmal atrial fi brillation (HCC) (Primary Dx) Start: 03-13-2023 Telephone encounter [facility] (Historical) Cardiology Comment on above: Received Outside Med ical Records ([facility]) Start: 03-12-2023 End: 03-12-[address] Elmer Richards Work Phone: [facility] Work Phone: Start: 03-12-2023 End: 03-12-[address] Elmer Richards Work Phone: [facility]-Radiology, [facility] Work Phone: Start: 03-12-2023 End: 03-12-[address] Elmer Richards Work Phone: [facility] Work Phone: Start: 03-12-2023 End: 03-12-[address] Elmer Richards Work Phone: [facility] Work Phone: Start: 03-12-2023 ambulatory ELMER Cruz y:A Start: 03-06-2023 End: 03-06-2023 ambulatory CORNELL BURDICK APRN-TELEVISION ENGINEERING TEACHER Facility:A Start: 03-06-2023 End: 03-06-2023 Patient encounter procedure CORNELL BURDICK [facility]B [facility] Start: 02-28-2023 End: 02-28-[address] Elmer Richards Work Phone: [facility] Work Phone: Start: 02-28-2023 End: 02-28-[address] Elmer Richards Work Phone: [facility]-Laboratory Work Phone: Start: 02-28-2023 End: 02-28-[address] Elmer Richards Work Phone: [facility] Work Phone: Start: 02-05-2023 End: 02-05-[address] CHRISTINA JENNINGS MD Facility:A Start: 02-05-2023 End: 02-05-[address] CHRISTINA JENNINGS MD [facility] Start: 01-21-2023 End: 01-22-2023 ambulatory Dr. Elmer Richards Work Phone: [facility] Work Phone: Start: 01-21-2023 End: 01-21-[address] Elmer Richards Work Phone: [facility] Work Phone: Start: 01-21-2023 End: 01-21-[address] Elmer Richards Work Phone: [facility] Work Phone: Start: 12-24-2022 End: 12-24-[address] Elmer Richards Work Phone: [facility] Work Phone: Start: 12-24-2022 End: 12-24-[address] Elmer Richards Work Phone: [facility] Work Phone: Start: 11-09-2022 End: 11-09-[address] CHRISTINA JENNINGS MD [facility] Start: 10-26-2022 End: 10-26-[address] Elmer Richards Work Phone: [facility] Work Phone: Start: 07-13-2022 End: 07-13-[address] CHRISTINA JENNINGS MD [facility] Start: 06-25-2022 End: 06-25-2022 Patient encounter procedure IVAN SEVERINO MD [facility] Start: 04-26-2022 End: 04-26-[address] CHRISTINA JENNINGS MD [facility] Start: 04-16-2022 End: 04-16-2022 Patient encounter procedure BRYANT SEGURA DO [place] Start: 03-19-2022 End: 03-19-[address] Elmer Richards Work Phone: [facility] Work Phone: Start: 03-19-2022 End: 03-19-[address] Elmer Richards Work Phone: [facility] Start: 03-19-2022 End: 03-19-[address] Elmer Richards Work Phone: [facility] Start: 03-09-2022 End: 03-09-[address] CHRISTINA JENNINGS MD [facility] Start: 02-21-2022 End: 02-21-[address] CHRISTINA JENNINGS MD [facility] Start: 02-05-2022 End: 02-05-[address] Elmer Richards Work Phone: [facility] Work Phone: Start: 02-05-2022 End: 02-05-[address] Elmer Richards Work Phone: [facility] Start: 01-16-2022 End: 01-16-[address] CHRISTINA JENNINGS MD [facility] Start: 01-03-2022 End: 01-03-2022 Patient encounter procedure CORNELL NERIETTA COMB MACHINE OPERATOR-TELEVISION ENGINEERING TEACHER [place] [facility] Start: 12-25-2021 End: 12-25-[address] Elmer Richards Work Phone: [facility] Start: 12-07-2021 End: 12-07-[address] Elmer Richards Work Phone: [facility] Start: 12-07-2021 End: 12-07-[address] Elmer Richards Work Phone: [facility] Start: 12-06-2021 End: 12-06-[address] Elmer Richards Work Phone: [facility] Start: 11-14-2021 End: 11-14-2021 Minor Procedure CORNELL Pina HEAVENLY COMB MACHINE OPERATOR-TELEVISION ENGINEERING TEACHER [facility] Start: 10-27-2021 End: 10-27-2021 Patient encounter procedure CORNELL NERIETTA COMB MACHINE OPERATOR-TELEVISION ENGINEERING TEACHER [facility] Start: 09-27-2021 End: 09-27-[address] Elmer Richards Work Phone: [facility] Start: 05-26-2021 End: 05-26-[address] CHRISTINA JENNINGS MD [facility] Start: 04-04-2021 End: 04-04-[address] CHRISTINA JENNINGS MD [facility] Procedures Date Procedure Procedure Detail Performing Clinician Start: 11-13-2024 Arthrocentesis aspir &/inj major jt/bursa w/o us Stewart Franks PA-C Work Phone: Start: 10-09-2024 X-ray of chest, PA a nd lateral views Dr. Elmer Richards MD Work Phone: Start: 09-02-2024 Arthrocentesis aspir &/inj major jt/bursa w/o us Stewart Franks PA-C Work Phone: Start: 08-31-[address] Alma Richards MD Work Phone: Start: 08-31-2024 CT of thorax with contrast Dr. Elmer Richards MD Work Phone: Start: 08-06-2024 Evaluation of diagno stic study results Dr. Elmer Richards MD Work Phone: Start: 07-27-2024 Antibody screen [facility] Comment on above: Order Comment: Speci men Type: BLOOD SPECIMENOrdering Facility: [facility] Address: [address] [place] [address] Performed By: #### 1 [id number] #### [facility] CLIA [id number] [address] [place] [address] [place] Start: 07-27-2024 Ecg routine ecg w/le ast 12 lds i&r only [facility] Provider Start: 10-21-2023 PM Inj Spine L/S [facility] SN 1 DR CHRISTINA JENNINGS MD Comment on above: auto-populated from documented surgical case Start: 09-12-2023 PACEMAKER CLINIC CHECK Tyler Baer MD Work Phone: Start: 09-05-2023 Ecg routine ecg w/le ast 12 lds w/i&r Dhaval Licona APRN.CNP Work Phone: Start: 07-18-2023 Ecg routine ecg w/le ast 12 lds w/i&r Tyler Baer MD Work Phone: Start: 04-01-2023 PACEMAKER CLINIC CHECK Davin Montanez MD Work Phone: Start: 03-25-2023 PM Inj Spine L/S Wit h Imaging SN 1 CORNELL [facility]ICK [facility] Comment on above: auto-populated from documented surgical case Start: 03-25-2023 PM Inj Spine L/S Wit h Imaging SN 2 DR CHRISTINA JENNINGS MD Comment on above: auto-populated from documented surgical case Start: 03-20-2023 Mammography Farhad 1 Start: 03-12-2023 Plain chest X-ray Dr. Moon Richards Work Phone: Start: 02-05-2023 PM Inj Spine L/S Wit h Imaging SN [address] CHRISTINA JENNINGS MD Comment on above: auto-populated from documented surgical case Start: 02-05-2023 PM Inj Spine L/S Wit h Imaging SN 2 CORNELL [facility] Comment on above: auto-populated from documented surgical case Start: 02-05-2023 PM Inj Spine L/S Wit h Imaging SN [address] DR CHRISTINA JENNINGS MD Comment on above: auto-populated from documented surgical case Start: 12-24-2022 Computed tomography of abdomen and pelvis with contrast Dr. Elmer Richards Work Phone: Start: 12-24-[address] Elmer Richards Work Phone: Start: 11-09-2022 PM Inj Spine L/S Wit h Imaging SN [address] CHRISTINA JENNINGS MD Comment on above: auto-populated from documented surgical case Start: 11-09-2022 PM Inj Spine L/S Wit h Imaging SN 2 DR CHRISTINA JENNINGS MD Comment on above: auto-populated from documented surgical case Start: 11-09-2022 PM Inj Spine L/S Wit h Imaging SN 3 CORNELL BURDICK COMB MACHINE OPERATOR-TELEVISION ENGINEERING TEACHER Comment on above: auto-populated from documented surgical case Start: 11-09-2022 PM Inj Spine L/S Wit h Imaging SN 4 DR CHRISTINA JENNINGS MD Comment on above: auto-populated from documented surgical case Start: 07-13-2022 PM Inj Spine L/S Wit h Imaging SN [address] CHRISTINA JENNINGS MD Comment on above: auto-populated from documented surgical case Start: 07-13-2022 PM Inj Spine L/S Wit h Imaging SN [address] CHRISTINA JENNINGS MD Comment on above: auto-populated from documented surgical case Start: 07-13-2022 PM Inj Spine L/S Wit h Imaging SN [address] CHRISTINA JENNINGS MD Comment on above: auto-populated from documented surgical case Start: 07-13-2022 PM Inj Spine L/S Wit h Imaging SN 4 CORNELL BURDICK COMB MACHINE OPERATOR-TELEVISION ENGINEERING TEACHER Comment on above: auto-populated from documented surgical case Start: 07-13-2022 PM Inj Spine L/S Wit h Imaging SN [address] DR CHRISTINA JENNINGS MD Comment on above: auto-populated from documented surgical case Start: 03-09-2022 PM Inj Spine L/S Wit h Imaging SN [address] CHRISTINA JENNINGS MD Comment on above: auto-populated from documented surgical case Start: 03-09-2022 PM Inj Spine L/S Wit h Imaging SN [address] CHRISTINA JENNINGS MD Comment on above: auto-populated from documented surgical case Start: 03-09-2022 PM Inj Spine L/S Wit h Imaging SN [address] DR CHRISTINA JENNINGS MD Comment on above: auto-populated from documented surgical case Start: 03-09-2022 PM Inj Spine L/S Wit h Imaging SN 4 DR CHRISTINA JENNINGS MD Comment on above: auto-populated from documented surgical case Start: 03-09-2022 PM Inj Spine L/S Wit h Imaging SN 5 CORNELL BURDICK COMB MACHINE OPERATOR-[facility] Comment on above: auto-populated from documented surgical case Start: 03-09-2022 PM Inj Spine L/S Wit h Imaging SN 6 DR CHRISTINA JENNINGS MD Comment on above: auto-populated from documented surgical case Start: 02-05-2022 Screening mammography D kashmir Richards Work Phone: Start: 01-16-2022 PM Inj Spine L/S Wit h Imaging SN [address] CHRISTINA JENINNGS MD Comment on above: auto-populated from documented surgical case Start: 01-16-2022 PM Inj Spine L/S Wit h Imaging SN [address] CHRISTINA JENNINGS MD Comment on above: auto-populated from documented surgical case Start: 01-16-2022 PM Inj Spine L/S Wit h Imaging SN [address] CHRISTINA JENNINGS MD Comment on above: auto-populated from documented surgical case Start: 01-16-2022 PM Inj Spine L/S Wit h Imaging SN [address] CHRISTINA JENNINGS MD Comment on above: auto-populated from documented surgical case Start: 01-16-2022 PM Inj Spine L/S Wit h Imaging SN 5 DR CHRISTINA JENNINGS MD Comment on above: auto-populated from documented surgical case Start: 01-16-2022 PM Inj Spine L/S Wit h Imaging SN 6 CORNELL BURDICK COMB MACHINE OPERATOR-[facility] Comment on above: auto-populated from documented surgical case Start: 01-16-2022 PM Inj Spine L/S Wit h Imaging SN 7 DR CHRISTINA JENNINGS MD Comment on above: auto-populated from documented surgical case Start: 11-14-2021 PM Inj Spine L/S Wit h Imaging SN (Bilateral) 1 CORNELL HEAVENLY [facility] Comment on above: auto-populated from documented surgical case Start: 11-14-2021 PM Inj Spine L/S Wit h Imaging SN (Bilateral) 2 DR CHRISTINA JENNINGS MD Comment on above: auto-populated from documented surgical case Start: 11-14-2021 PM Inj Spine L/S Wit h Imaging SN (Bilateral) 3 DR CHRISTINA JENNINGS MD Comment on above: auto-populated from documented surgical case Start: 11-14-2021 PM Inj Spine L/S Wit h Imaging SN (Bilateral) 4 DR CHRISTINA JENNINGS MD Comment on above: auto-populated from documented surgical case Start: 11-14-2021 PM Inj Spine L/S Wit h Imaging SN (Bilateral) 5 DR CHRISTINA JENNINGS MD Comment on above: auto-populated from documented surgical case Start: 11-14-2021 PM Inj Spine L/S Wit h Imaging SN (Bilateral) 6 DR CHRISTINA JENNINGS MD Comment on above: auto-populated from documented surgical case Start: 11-14-2021 PM Inj Spine L/S Wit h Imaging SN (Bilateral) 7 CORNELL [facility]UR[facility]ICK [facility] Comment on above: auto-populated from documented surgical case Start: 11-14-2021 PM Inj Spine L/S Wit h Imaging SN (Bilateral) 8 DR CHRISTINA JENNINGS MD Comment on above: auto-populated from documented surgical case Start: 07-12-2021 Lumbar epidural ster oid injection CORNELL BURDICK COMB [facility]ACHINE [facility] Comment on above: gave 85-90% relief f or 2 months Start: 02-06-2021 Pacemaker catheter, device (physical object) DR CHRISTINA JENNINGS MD Start: 01-16-2021 Colonoscopy Farhad 1 Start: 01-16-[address] CHRISTINA MISHRA MD Start: 07-04-2020 Lumbar epidural ster oid injection DR CHRISTINA JENNINGS MD Comment on above: 03/06/20 INJECTION 80 % LASTING 2 MONTHS Start: 03-06-2017 Epidural injection o f lumbar spine using fluoroscopic guidance DR CHRISTINA JENNINGS MD Comment on above: 03-06-2017 was her l ast LES injection Start: 05-06-2014 Prtl thyroid lobec u ni w/contratlat stot lobec DR CHRISTINA JENNINGS MD Start: 05-06-2011 Carpal tunnel syndro me (disorder) DR CHRISTINA JENNINGS MD 2019-nCoV vaccination DR MATEO JENNINGS MD Abdominal hysterectomy DR BRAD JENNINGS MD Cholecystectomy DR CHRISTINA FARRELL MD Parathyroidectomy DR CHRISTINA MISHRA MD Tonsillectomy DR CHRISTINA CHRISTINE MD Plan of Treatment Date Care Activity Detail Author Start: 01-16-2031 Screening for malignant neoplasm of colon [facility] Start: 07-27-2025 BP Controlled (<130/80) BP Controlled (<130/80) [facility] in Start: 02-19-2025 End: 02-19-2025 Patient encounter procedure 02/19/2025 3:45 PM EDT Office Visit Pain Management [address] [place] [address] Ayaan Moreland MD [address] [place] [address] OFFICE VISIT Pain Management Comment on above: OFFICE VISIT Start: 01-25-2025 End: 01-25-2025 ambulatory 01/25/2025 10:00 AM EDT [facility] [address] [place] [address] Lyndsey Hedrick, PhD [address] [place] [address] Office Pain Management Comment on above: Office Start: 01-25-2025 End: 01-25-2025 Patient encounter procedure 01/25/2025 10:00 AM EDT Office Visit Pain Management [address] [place] [address] Lyndsey Hedrick, PhD [address] [place] [address] Office Pain Management Comment on above: Office Start: 01-04-2025 Influenza vaccination [facility] Start: 12-28-2024 End: 12-28-2024 ambulatory 12/28/2024 10:00 AM EDT [facility] [address] [place] [address] Lyndsey Hedrick, PhD [address] [place] [address] [facility] Comment on above: Virtual Start: 12-28-2024 End: 12-28-2024 Patient encounter procedure 12/28/2024 10:00 AM EDT Office Visit Pain Management [address] [place] [address] Lyndsey Hedrick, PhD [address] [place] [address] Office Pain Management Comment on above: Office Start: 12-18-2024 End: 12-18-2024 Patient encounter procedure 12/18/2024 1:20 PM EDT Office Visit [facility] General Rheumatology and Arthritis [address] [place], [place] [id number] Dyana Moran MD [address] [place], [place] [address] Rheumatoid Arthritis, possible SLE lupus [facility] Rheumatology and Arthritis Comment on above: Rheumatoid Arthritis, possible SLE lupus Start: 12-02-2024 End: 12-02-2024 ambulatory 12/02/2024 2:30 PM EDT [facility] Pain Management [address] [place] [address] Lyndsey Hedrick, PhD [address] [place] [address] V[facility] Pain Management Comment on above: VIRTUAL Start: 12-02-2024 End: 12-02-2024 ambulatory 12/02/2024 10:45 AM EDT [facility] Pain Management [address] [place] [address] Lyndsey Hedrick, PhD [address] [place] [address] [facility] Management Comment on above: Virtual Start: 12-01-2024 End: 12-01-2024 Patient encounter procedure 12/01/2024 1:00 PM EDT Office Visit Pain Management [address] [place] [address] Ayaan Moreland MD [address] [place], [place] [id number] FOLLOW UP Pain Management Comment on above: FOLLOW UP Start: 11-18-2024 End: 11-18-2024 Patient encounter procedure 11/18/2024 12:40 PM EDT Distance [facility] General Rheumatology and Arthritis [address] [place], [place] [address] Dyana Moran MD [address] [facility] [address] [place] [address] [facility] General Rheumatology and Arthritis Comment on above: Labs x rays Start: 11-17-2024 End: 11-17-2024 Patient encounter procedure 11/17/2024 10:00 AM EDT Office Visit Pain Management [address] [facility] [address] [place] [address] Lyndsey Hedrick, PhD [address] [facility] [address] [place] [address] NPPS - Dr Moreland referred Pain Management Comment on above: NPPS - Dr Moreland referred Start: 11-13-2024 End: 11-13-2024 Patient encounter procedure 11/13/2024 3:30 PM EDT Office Visit Orthopaedics [address] [place] [address] Stewart Franks PA-C [address] [facility] [address] [place] [address] [facility] Orthopaedics Comment on above: Gel One - R Knee Start: 11-12-2024 End: 11-12-2024 ambulatory 11/12/2024 10:30 AM EDT [place] [id number] Korin Louis MD, PhD [address] [place], [place] [id number] MS (multiple sclerosis) ([facility]) [G35] [facility] Comment on above: MS (multiple sclerosis) (HCC) [G35] Start: 11-05-2024 End: 11-05-[address] [facility] General Rheumatology and Arthritis Comment on above: new pt r/ a Rheumatoid Arthritis , possible SLE lupus Start: 10-22-2024 End: 10-22-2024 ambulatory 10/22/2024 5:00 PM EDT [address] [address] Korin Louis MD, PhD [address] [place] [place] [id number] MS (multiple sclerosis) ([facility]) [G35] [facility] Comment on above: MS (multiple sclerosis) ([facility]) [G35] Start: 10-22-2024 End: 01-21-2025 25-hydroxyvitamin D3 [Mass/volume] in Serum or Plasma [facility] Comment on above: Expected: 10/22/2024, Expires: Start: 10-22-2024 End: 01-21-2025 ROBBI BY IFA SCREEN [facility] Work Phone: Comment on above: Expected: 10/22/2024, Expires: Start: 10-22-2024 End: 01-21-2025 Comprehensive metabolic 2000 panel - Serum or Plasma [facility] Comment on above: Expected: 10/22/2024, Expires: Start: 10-22-2024 End: 01-21-2025 Creatine kinase [Enzymatic activity/volume] in Serum or Plasma [facility] Comment on above: Expected: 10/22/2024, Expires: Start: 10-22-2024 End: 01-21-2025 Cyclic citrullinated peptide IgG Ab [Units/volume] in Serum or Plasma [facility] Comment on above: Expected: 10/22/2024, Expires: Start: 10-22-2024 End: 01-21-2025 DNA ANTIBODY DS BLD [facility] Comment on above: Expected: 10/22/2024, Expires: Start: 10-22-2024 End: 01-21-2025 DNA double strand Ab [Presence] in Serum by Immunofluorescence (IF) Berhane harris [facility] Comment on above: Expected: 10/22/2024, Expires: Start: 10-22-2024 End: 01-21-2025 Rheumatoid factor [Units/volume] in Serum or Plasma [facility] Comment on above: Expected: 10/22/2024, Expires: Start: 10-22-2024 End: 01-21-2025 Ribonucleoprotein extractable nuclear Ab [Units/volume] in Serum [facility] Comment on above: Expected: 10/22/2024, Expires: Start: 10-22-2024 End: 01-21-2025 SJOGREN ABS SSA/SSB [facility] Comment on above: Expected: 10/22/2024, Expires: Start: 10-22-2024 End: 01-21-2025 Richards extractable nuclear IgG Ab [Units/volume] in Serum [facility] Comment on above: Expected: 10/22/2024, Expires: Start: 10-22-2024 End: 10-22-2024 Patient encounter procedure 10/22/2024 1:20 PM EDT Office Visit [facility] General Rheumatology and Arthritis [address] [place], [place] [phone] Dyana Moran MD [address] [place] [address] Rheumatoid Arthritis, possible SLE lupus [facility] Rheumatology and Arthritis Comment on above: Rheumatoid Arthritis, possible SLE lupus Start: 10-16-2024 End: 10-16-2024 Patient encounter procedure Orthopaedics Comment on above: R knee pain Right knee pain (MARINA 09/02/2024 CSI) Start: 10-13-2024 End: 10-13-2024 Patient encounter procedure 10/13/2024 9:00 AM EDT Office Visit Pain Management [address] [place] [address] Ayaan Moreland MD [address] [place] [address] New Pain - Lower Back, Rt Leg Pain Management Comment on above: New Pain - Lower Back, Rt Leg Start: 10-09-2024 [facility] Start: 09-22-2024 End: 09-22-2024 Patient encounter procedure 09/22/2024 11:30 AM EDT Office Visit Neurosurgery [address] [place] [address] Shawn Everett MD [address] [place] [address] 2nd post op Neurosurgery Comment on above: 2nd post op Start: 09-02-2024 End: 09-02-2024 Patient encounter procedure Orthopaedics Comment on above: Right Knee Pain, Imaging in Epic Right Knee Pain Start: 2024 End: 2024 Patient encounter procedure 2024 11:40 AM EDT Office Visit Spine Surgery [address] [place] [address] Juan David Lopez PA-C [address] [place] [address] 1st post op Spine Surgery Comment on above: 1st post op Start: 08-10-2024 End: 08-10-2024 Admission to same day surgery center 08/10/2024 12:45 PM EDT - 08/10/2024 3:05 PM EDT Surgery [facility] Surgical Services [address] [place] [address] Shawn Everett MD [address] [place] [address] DECOMPRESSION LAMINECTOMY LUMBAR POSTERIOR LEVEL 1 (Right L4/5 MIS Decompression) [facility] Comment on above: DECOMPRESSION LAMINECTOMY LUMBAR POSTERI OR LEVEL 1 (Right L4/5 MIS Decompression) Start: 08-10-2024 End: 08-10-2024 Chavez facetectomy & foramotomy 1 segment lumbar DECOMPRESSION LAMINECTOMY LUMBAR POSTERIOR LEVEL 1 Spinal stenosis, lumbar region with neurogenic claudication 08/10/2024 12:45 PM EDT [facility] OR Start: 08-10-2024 Subsequent hospital visit by physician [facility] Comment on above: Spinal stenosis, lumbar region with neur ogenic claudication [M48.062] Start: 08-04-2024 End: 08-04-2024 Patient encounter procedure 08/04/2024 11:00 AM EDT Office Visit [facility] Cardiology [place] [address] [place] [address] Dhaval Licona APRN.COUNSELING CASE MANAGER [address] [place] [address] PREOP- hlk [facility] [place] Comment on above: PREOP- hlk Start: 07-27-2024 End: 10-26-2024 Basic metabolic 2000 panel - Serum or Plasma [facility] Work Phone: Comment on above: Expected: 07/27/2024, Expires: Start: 07-27-2024 End: 10-26-2024 CBC W Auto Differential panel - Blood [facility] Comment on above: Expected: 07/27/2024, Expires: Start: 07-27-2024 End: 10-26-2024 TYPE AND SCREEN,30 DAY [facility] Comment on above: Expected: 07/27/2024, Expires: Start: 07-27-2024 End: 07-27-2024 Anesthesia consultation 07/27/2024 1:40 PM EDT PAT Pre Anesthesia [address] [place] [phone] 1, Pacc [place] [address] [place] [address] PAC Pre Anesthesia Comment on above: PACC Start: 07-20-2024 End: 07-20-2024 Patient encounter procedure [facility] Comment on above: r knee right knee pain Start: 06-08-2024 End: 12-05-2024 STAPHYLOCOCCUS AUREUS & MRSA SCREEN, PCR, NASAL STAPHYLOCOCCUS AUREUS & MRSA SCREEN, PCR, NASAL Lab Routine Spinal stenosis, lumbar region with neurogenic claudication Preoperative clearance Pre-op testing Expected: 06/08/2024, Expires: 12/05/2024 [facility] Work Phone: Comment on above: Expected: 06/08/2024, Expires: Start: 05-27-2024 DTaP/Tdap/Td Vaccines (2 - Td or Tdap) DTaP/Tdap/Td Vaccines (2 - Td or Tdap) [facility] Start: 05-27-2024 Urine microalbumin profile DTaP,Tdap,Td Vaccine (2 - Td or Tdap) [facility] Start: 04-16-2024 End: 04-16-2024 Follow-up encounter 04/16/2024 10:00 AM EST [facility] Health Neurosurgery [address] [place], [place] [id number] Shawn Everett MD [address] [place] [address] FOLLOW UP Neurosurgery Comment on above: FOLLOW UP Start: 04-03-2024 End: 04-03-2024 Patient encounter procedure 04/03/2024 10:00 AM EST Office Visit [facility] [place] [address] [place], [place] [id number] Shawn Everett MD [address] [place] [address] symptoms of back and BL leg pain, numbness, weakness, difficulty walking. + some trouble with hands- has an MS dx. + report of intermittent urinary incontinence. [facility] [place] Comment on above: symptoms of back and BL leg pain, numbne ss, weakness, difficulty walking. + some trouble with hands- has an MS dx. + report of intermittent urinary incontinence. Start: 03-20-2024 Screening for malignant neoplasm of breast Mammogram [facility] Start: 01-05-2024 COVID-19 Vaccine ( season) COVID-19 Vaccine () [facility] Start: 01-05-2024 Covid-19 Vaccine ( season) Covid-19 Vaccine ( season) [facility] Start: 01-05-2024 Influenza vaccination Influenza Vaccine (#1) [facility] Start: 09-11-2023 End: 09-11-2023 Ins new/rplcmt prm pm w/transv eltrd atrial&vent (NEW IMPLANT DUAL CHAMBER PPM) INSERTION OF A NEW PERMANENT PACEMAKER W/ INSERTION OF NEW TRANSVENOUS ELECTRODE(S) ATRIAL & VENTRICULAR Bradycardia Atrioventricular block, second degree Mobitz type 2 second degree AV block Right bundle branch block (RBBB) with left anterior fascicular block (LAFB) Presence of cardiac pacemaker Malfunction of electrode lead of cardiac pacemaker 09/11/2023 8:00 AM EDT [facility] Start: 09-11-2023 End: 09-11-2023 Rmvl transvns pm eltrd dual lead sys REMOVAL PACEMAKER ELECTRODE DUAL LEAD SYSTEM Bradycardia Atrioventricular block, second degree Mobitz type 2 second degree AV block Right bundle branch block (RBBB) with left anterior fascicular block (LAFB) Presence of cardiac pacemaker Malfunction of electrode lead of cardiac pacemaker 09/11/2023 8:00 AM EDT [facility] Start: 09-11-2023 End: 09-11-2023 [facility] Comment on above: REMOVAL ELECTRODE(S) IMPLANTABLE DEFIBRI LLATOR TRANSVENOUS EXTRACTION REMOVAL PACEMAKER EL ECTRODE DUAL LEAD SYSTEM Start: 09-11-2023 End: 09-11-2023 Rmvl1/dual chmbr impltbl dfb eltrd transvns xtrj REMOVAL ELECTRODE(S) IMPLANTABLE DEFIBRILLATOR TRANSVENOUS EXTRACTION Bradycardia 09/11/2023 7:00 AM EDT [facility] Start: 09-11-2023 Subsequent hospital visit by physician 09/11/2023 7:00 AM EDT Hospital Encounter [facility] [address] [place] [address] Tyler Baer MD [address] [address] Bradycardia [R00.1] [facility] Comment on above: Bradycardia [R00.1] Start: 09-05-2023 End: 09-05-2023 Patient encounter procedure 09/05/2023 10:00 AM EDT Office Visit [facility] [address] [place], [place] [id number] Dhaval Licona, COMB MACHINE OPERATOR.COUNSELING CASE MANAGER [address] [place], [place] [id number] H&P for Extraction/Reimplant on 09/10 with [email or web address] [facility] Comment on above: H&P for Extraction/Reimplant on 09/10 with [email or web address] Start: 07-01-2023 Patient referral [facility] Work Phone: Start: 03-13-2023 Patient referral [facility] Work Phone: Start: 01-04-2023 Covid-19 Vaccine ( season) Covid-19 Vaccine () [facility] Start: 01-04-2023 Covid-19 Vaccine () Covid-19 Vaccine () [facility] Start: 01-04-2023 Influenza vaccination Influenza Vaccine (#1) [facility] Start: 12-24-2022 Nucleic acid assay Enteric Bacteriology [facility] Start: 05-06-2022 Depression Assessment Depression Assessment [facility] Start: 2020 Pneumococcal vaccination Pneumococcal Vaccine (2 of 2 - PCV) [facility] Start: 2020 Shingrix Vaccine (1 of 2) Shingrix Vaccine (1 of 2) [facility] Start: 2020 Zoster Vaccines (1 of 2) Zoster Vaccines (1 of 2) [facility] Start: 08-11-2017 Diabetes Screening Diabetes Screening [facility] Start: 08-25-2015 Cologuard (FIT-DNA) Cologuard (FIT-DNA) [facility] Start: 08-25-2015 Colonoscopy Colonoscopy [facility] Start: 08-25-2015 Colorectal Cancer Screening Colorectal Cancer Screening [facility] Start: 08-25-[address] Colonography [facility] Start: 08-25-2015 Fecal Occult Blood Fecal Occult Blood [facility] Start: 08-25-2015 Lipid 1996 panel - Serum or Plasma Lipid Screening [facility] Start: 08-25-2015 Lipid panel Lipid Screening [facility] Start: 08-25-2015 Screening for malignant neoplasm of colon [facility] Start: 08-25-2015 Sigmoidoscopy Sigmoidoscopy [facility] Start: 08-20-2015 Pneumococcal vaccination Pneumococcal Vaccine (2 of 2 - PCV) [facility] Start: 08-20-2015 Pneumococcal Vaccine: 50+ (2 of 2 - PCV) Pneumococcal Vaccine: 50+ (2 of 2 - PCV) [facility] Start: 2010 Mammography Mammogram Screening [facility] Start: 2010 Screening for malignant neoplasm of breast Mammogram Screening [facility] Start: 2000 HPV Testing HPV Testing [facility] Start: 2000 Screening for malignant neoplasm of cervix HPV Testing [facility] Start: 08-25-1991 Pap Testing Pap Testing [facility] Start: 08-25-1991 Screening for malignant neoplasm of cervix [facility] Start: 1989 Hepatitis B Vaccine (1 of 3 - 19+ 3-dose series) Hepatitis B Vaccine (1 of 3 - 19+ 3-dose series) [facility] Start: 1989 Hepatitis B Vaccines (1 of 3 - 19+ 3-dose series) Hepatitis B Vaccines (1 of 3 - 19+ 3-dose series) [facility] Start: 1989 Urine microalbumin profile DTaP,Tdap,Td Vaccine (1 - Tdap) [facility] Start: 1988 Annual PCP Team Chronic Disease Visit Annual PCP Team Chronic Disease Visit [facility] Start: 1988 BP Controlled (<130/80) BP Controlled (<130/80) [facility] Start: 1988 Diabetes mellitus screening Diabetes Screening [facility] Start: 1988 Hepatitis B surface antibody level LDL Cholesterol [facility] Start: 1988 Hepatitis C Screening Hepatitis C Screening [facility] Start: 1988 Hepatitis C screening Hepatitis C Screening [facility] Start: 1988 HIV Screening HIV Screening [facility] Start: 1988 HIV screening HIV Screening [facility] Start: 1981 Screening for malignant neoplasm of cervix Cervical Cancer Screening [facility] Start: 1980 Diabetic foot examination Diabetic Foot Exam [facility] Start: 1980 Glaucoma screening Dilated Retinal Exam [facility] Start: 1980 Hepatitis B screening Urine Albumin:Creatinine Ratio [facility] Start: 08-25-1975 Hemoglobin A1c measurement HbA1C [facility] Start: 08-25-1971 MMR Vaccines (1 of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 subcutaneously one time a week. lidocaine (SALONPAS) 4 % patch APPLY ONE PATCH AT NIGHT AND LEAVE ON FOR 12 HOURS THEN REMOVE DURING THE DAY sertraline (ZOLOFT) 50 mg tablet 100 mg. carvedilol (COREG) 25 mg tablet Take by mouth once daily. FREESTYLE LUIS MIGUEL 3 SENSOR wilbur CHANGE SENSOR EVERY 14 DAYS cholecalciferol, Vitamin D3, (VITAMIN D3) 1,250 mcg (50,000 unit) cap capsule Take 1 capsule by mouth one time a week. TRUE METRIX GLUCOSE TEST STRIP test strip use 1 TEST STRIP to TEST BLOOD SUGAR four times a day TRUE METRIX GLUCOSE METER as directed. TRUEPLUS LANCETS 30 gauge use 1 LANCET to TEST BLOOD SUGAR four times a day cholecalciferol (VITAMIN D3) 50 mcg (2,000 unit) tablet Take 2,000 Units by mouth every afternoon. levothyroxine (SYNTHROID) 150 mcg tablet Take 1 tablet by mouth every afternoon. insulin lispro (HUMALOG KWIKPEN) 100 unit/mL 12 UNITS SQ TID, using 14 UNITS SQ TID while on steroids aspirin, enteric coated (ASPIRIN, ENTERIC COATED) 81 mg EC tablet Take 81 mg by mouth once daily. Dcqerqiedgbvy-Wjkwwlpd-Jfdbne (MULTIVITAMIN 50 PLUS) tab Take 1 tablet by mouth once daily. diroximel fumarate (VUMERITY) 231 mg capsule, delayed release Take 462 mg by mouth two times a day. hydroCHLOROthiazide 25 mg tablet Take 12.5 mg by mouth once daily. rosuvastatin (CRESTOR) 5 mg tablet Take 5 mg by mouth once daily. insulin glargine (LANTUS SOLOSTAR U-100 INSULIN) 100 unit/mL (3 mL) Inject 32 Units subcutaneously every morning. losartan (COZAAR) 50 mg tablet Take 50 mg by mouth two times a day. acetaminophen (TYLENOL) 500 mg tablet Take 1 tablet by mouth every 6 hours as needed. 0 No current facility-administered medications for this visit. Medication Issues: D/C Cymbalta.. Assessment and Treatment: Focus on depression; she would like to find a medication that would work; she had been on 100 mg Zoloft. She has tried Wellbutrin, Effexor, through PCP. She does not appear to have tried Lexapro nor Celexa. "It's usually things I can't control." Worked on control, Next BioPsychoSocial model. Looked at what frustrates her. She does not like having to have her spouse doing things to help her. Interventions: Continue in therapy focusing on Cognitive behavioral therapy, Pain management, Stress management, Behavioral health, Relaxation skills, Sleep Strategies, Depression management, Anxiety management, Coping skills, Increased Functional Activity, Wellness behavior, Supportive Therapy, Behavior Modification, Self Care, and Interpersonal relationships/family/partner skills}. Frequency: Once every 2 weeks. Duration: 3 to 6 months. Goals: Continue in therapy working toward goals of: Cognitive behavioral therapy, Pain management, Stress management, Behavioral health, Relaxation skills, Sleep Strategies, Depression management, Anxiety management, Coping skills, Increased Functional Activity, Wellness behavior, Supportive Therapy, Behavior Modification, Self Care, and Interpersonal relationships/family/partner skills. Progress toward Treatment Goals: Stable. Homework:"Apply cognitive-behavioral skills Implement/continue exercise regimen Practice relaxation techniques. Diagnostic Impressions: (F32.A) Depression, unspecified depression type (primary encounter diagnosis) (F45.42) Pain disorder associated with psychological and physical factors (Z98.890) Status post (more content not included)... [facility] 12-02-2024 Note HNO ID: [id number] Author: LYNDSEY HEDRICK, PhD Service: ? Author Type: Psychologist Type: Progress Notes Filed: 12/02/2024 11:33 Note Text: Kvng Landry 12/02/2024 [id number] CPT Code: 08513 Psychotherapy 45 minutes. - Modality: Individual therapy. Data: Kvng Landry was seen for Individual therapy on December 02, 2024. I have communicated my name and active licensure. The patient's identity and physical location were ascertained at the time of the visit. Either the patient or legal product sales representative has been informed of the risks and benefits of treatment, and alternatives to that treatment through virtual visits, and consents to proceed with the session remotely. This is our 1st follow up session. The past 18 months have been difficult for her health. She feels Zoloft 100 mg is not helping; she will contact her PCP. She tried some others: Wellbutrin without success. She has not been on Cymbalta. She will need to coordinate titrations and options with her PCP. Current Medication from Chart: Current Outpatient Medications Medication Sig Dispense Refill tirzepatide (MOUNJARO) 2.5 mg/0.5 mL pen injector Inject 2.5 mg subcutaneously one time a week. celecoxib (CELEBREX) 200 mg capsule Take 1 capsule by mouth two times a day. 60 capsule 1 lidocaine (SALONPAS) 4 % patch APPLY ONE PATCH AT NIGHT AND LEAVE ON FOR 12 HOURS THEN REMOVE DURING THE DAY sertraline (ZOLOFT) 50 mg tablet 100 mg. carvedilol (COREG) 25 mg tablet Take by mouth once daily. FREESTYLE LUIS MIGUEL 3 SENSOR wilbur CHANGE SENSOR EVERY 14 DAYS cholecalciferol, Vitamin D3, (VITAMIN D3) 1,250 mcg (50,000 unit) cap capsule Take 1 capsule by mouth one time a week. TRUE METRIX GLUCOSE TEST STRIP test strip use 1 TEST STRIP to TEST BLOOD SUGAR four times a day TRUE METRIX GLUCOSE METER as directed. TRUEPLUS LANCETS 30 gauge use 1 LANCET to TEST BLOOD SUGAR four times a day cholecalciferol (VITAMIN D3) 50 mcg (2,000 unit) tablet Take 2,000 Units by mouth every afternoon. levothyroxine (SYNTHROID) 150 mcg tablet Take 1 tablet by mouth every afternoon. insulin lispro (HUMALOG KWIKPEN) 100 unit/mL 12 UNITS SQ TID, using 14 UNITS SQ TID while on steroids aspirin, enteric coated (ASPIRIN, ENTERIC COATED) 81 mg EC tablet Take 81 mg by mouth once daily. Vnchzkjutzpfu-Xwbkowpx-Rbthzw (MULTIVITAMIN 50 PLUS) tab Take 1 tablet by mouth once daily. diroximel fumarate (VUMERITY) 231 mg capsule, delayed release Take 462 mg by mouth two times a day. hydroCHLOROthiazide 25 mg tablet Take 12.5 mg by mouth once daily. rosuvastatin (CRESTOR) 5 mg tablet Take 5 mg by mouth once daily. insulin glargine (LANTUS SOLOSTAR U-100 INSULIN) 100 unit/mL (3 mL) Inject 32 Units subcutaneously every morning. losartan (COZAAR) 50 mg tablet Take 50 mg by mouth two times a day. acetaminophen (TYLENOL) 500 mg tablet Take 1 tablet by mouth every 6 hours as needed. 0 No current facility-administered medications for this visit. Medication issues. She has started Mounjaro Assessment and Treatment: We reviewed tests and validated them. We discussed tx plan and prep for SCS. We discussed exercise, stretching, aerobic weight bearing. Depression, assertiveness, perfectionism, internalizing emotions, self esteem/self critical, pessimistic, relaxation. She like swimming, encouraged to go. The next appointment will be in person. Interventions: Continue in therapy focusing on Cognitive behavioral therapy, Pain management, Stress management, Behavioral health, Relaxation skills, Sleep Strategies, Depression management, Anxiety management, Coping skills, Increased Functional Activity, Wellness behavior, Supportive Therapy, Behavior Modification, Self Care, and Interpersonal relationships/family/partner skills}. Frequency: Once every 2 weeks. Duration: 3 to 6 months. Goals: Continue in therapy working toward goals of: Cognitive behavioral therapy, Pain management, Stress management, Behavioral health, Relaxation skills, Sleep Strategies, Depression management, Anxiety management, Coping skills, Increased Functional Activity, Wellness behavior, Supportive Therapy, Behavior Modification, Self Care, and Interpersonal relationships/family/partner skills. Progress toward Treatment Goals: Just starting. Homework:"Check w/ PCP on antidepressants, perhaps . Diagnostic Impressions: No diagnosis found. Provider: Lyndsey Desai, PhD [facility] 12-02-2024 History of Present illness Narrative Formatting of this note is different fro m the original. Kvng Landry 12/02/2024 [id number] CPT Code: 10898 Psychotherapy 45 minutes. - Modality: Individual therapy. Data: Kvng Landry was seen for Individual therapy on December 02, 2024. I have communicated my name and active licensure. The patient's identity and physical location were ascertained at the time of the visit. Either the patient or legal product sales representative has been informed of the risks and benefits of treatment, and alternatives to that treatment through virtual visits, and consents to proceed with the session remotely. This is our 1st follow up session. The past 18 months have been difficult for her health. She feels Zoloft 100 mg is not helping; she will contact her PCP. She tried some others: Wellbutrin without success. She has not been on Cymbalta. She will need to coordinate titrations and options with her PCP. Current Medication from Chart: Current Outpatient Medications Medication Sig Dispense Refill tirzepatide (MOUNJARO) 2.5 mg/0.5 mL pen injector Inject 2.5 mg subcutaneously one time a week. celecoxib (CELEBREX) 200 mg capsule Take 1 capsule by mouth two times a day. 60 capsule 1 lidocaine (SALONPAS) 4 % patch APPLY ONE PATCH AT NIGHT AND LEAVE ON FOR 12 HOURS THEN REMOVE DURING THE DAY sertraline (ZOLOFT) 50 mg tablet 100 mg. carvedilol (COREG) 25 mg tablet Take by mouth once daily. FREESTYLE LUIS MIGUEL 3 SENSOR wilbur CHANGE SENSOR EVERY 14 DAYS cholecalciferol, Vitamin D3, (VITAMIN D3) 1,250 mcg (50,000 unit) cap capsule Take 1 capsule by mouth one time a week. TRUE METRIX GLUCOSE TEST STRIP test strip use 1 TEST STRIP to TEST BLOOD SUGAR four times a day TRUE METRIX GLUCOSE METER as directed. TRUEPLUS LANCETS 30 gauge use 1 LANCET to TEST BLOOD SUGAR four times a day cholecalciferol (VITAMIN D3) 50 mcg (2,000 unit) tablet Take 2,000 Units by mouth every afternoon. levothyroxine (SYNTHROID) 150 mcg tablet Take 1 tablet by mouth every afternoon. insulin lispro (HUMALOG KWIKPEN) 100 unit/mL 12 UNITS SQ TID, using 14 UNITS SQ TID while on steroids aspirin, enteric coated (ASPIRIN, ENTERIC COATED) 81 mg EC tablet Take 81 mg by mouth once daily. Izmqytfmdxown-Ohnhgihk-Onfgrm (MULTIVITAMIN 50 PLUS) tab Take 1 tablet by mouth once daily. diroximel fumarate (VUMERITY) 231 mg capsule, delayed release Take 462 mg by mouth two times a day. hydroCHLOROthiazide 25 mg tablet Take 12.5 mg by mouth once daily. rosuvastatin (CRESTOR) 5 mg tablet Take 5 mg by mouth once daily. insulin glargine (LANTUS SOLOSTAR U-100 INSULIN) 100 unit/mL (3 mL) Inject 32 Units subcutaneously every morning. losartan (COZAAR) 50 mg tablet Take 50 mg by mouth two times a day. acetaminophen (TYLENOL) 500 mg tablet Take 1 tablet by mouth every 6 hours as needed. 0 No current facility-administered medications for this visit. Medication issues. She has started Mounjaro Assessment and Treatment: We reviewed tests and validated them. We discussed tx plan and prep for SCS. We discussed exercise, stretching, aerobic weight bearing. Depression, assertiveness, perfectionism, internalizing emotions, self esteem/self critical, pessimistic, relaxation. She like swimming, encouraged to go. The next appointment will be in person. Interventions: Continue in therapy focusing on Cognitive behavioral therapy, Pain management, Stress management, Behavioral health, Relaxation skills, Sleep Strategies, Depression management, Anxiety management, Coping skills, Increased Functional Activity, Wellness behavior, Supportive Therapy, Behavior Modification, Self Care, and Interpersonal relationships/family/partner skills}. Frequency: Once every 2 weeks. Duration: 3 to 6 months. Goals: Continue in therapy working toward goals of: Cognitive behavioral therapy, Pain management, Stress management, Behavioral health, Relaxation skills, Sleep Strategies, Depression management, Anxiety management, Coping skills, Increased Functional Activity, Wellness behavior, Supportive Therapy, Behavior Modification, Self Care, and Interpersonal relationships/family/partner skills. Progress toward Treatment Goals: Just starting. Homework:"Check w/ PCP on antidepressants, perhaps . Diagnostic Impressions: No diagnosis found. Provider: Lyndsey Desai, PhD documented in this encounter [facility] 12-01-2024 Instructions Ayaan Moreland MD - 12/01/2024 1:09 PM EDT We discussed your chronic pain and treatment plan: - You will continue working with Dr. Emery to prepare for the spinal cord stimulator trial. She will help you develop mental tools for managing chronic pain, such as relaxation techniques and cognitive behavioral strategies. This preparation will improve the likelihood of success with the stimulator. - Please schedule 2-[address] Emery. These can likely be done virtually after the initial in-person visit. I will confirm this with her and send her a message to let her know we discussed moving forward with the stimulator. - Once Dr. Emery feels you are ready, I will order the spinal cord stimulator trial. You will be contacted with further details about the procedure. We discussed your current medications and inflammation management: - Continue taking Diclofenac as prescribed for inflammation and pain relief. This is a strong anti-inflammatory and appropriate for your current treatment plan. - Avoid Celebrex due to a potential interaction with Mounjaro, as advised by your pharmacist. - Maintain a healthy diet and regular exercise to help manage inflammation and overall health. We discussed your recent fall and low back pain: - You reported soreness after your fall but no concerns about fractures or serious injury. Continue using your walker to prevent further falls. - While you are experiencing pain in your lower right back, buttock, and leg, I do not recommend a steroid injection at this time. Instead, we will focus on moving forward with the spinal cord stimulator trial, as this is the best option for long-term relief. Next steps: - Schedule your follow-up sessions with Dr. Emery. - Once you complete these sessions, we will proceed with the spinal cord stimulator trial. - If your pain worsens or you experience new symptoms, please contact our office. documented in this encounter [facility] 12-01-2024 Note HNO ID: [id number] Author: AYAAN MORELAND MD Service: ? Author Type: Physician Type: Progress Notes Filed: 12/01/2024 13:17 Note Text: [facility] Pain Management Department Follow-Up Evaluation Chief Complaint: Patient presents with: Low Back Pain: Right side-radiating to the buttock, lower limb and feet SUBJECTIVE Kvng Landry, is a 54 year old with 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HCC) Depression Diabetes mellitus, type 2 (HCC) DVT, lower extremity (HCC) Essential hypertension History of myocardial infarction due to atherothrombotic coronary artery disease Hypothyroidism Malfunction of electrode lead of cardiac pacemaker atrial lead Mixed hyperlipidemia MS (multiple sclerosis) (HCC) Multiple sclerosis (HCC) Presence of cardiac pacemaker [employer] dual-chamber MRI conditional pacemaker system implanted 02/06/2021 for second degree AV block; system extracted (removed) 09/11/2023 due to lead malfunction; new Medtronic dual-chamber pacemaker system reimplanted (system will be MRI conditional after 6 weeks post implant) PVC (premature ventricular contraction) RA (rheumatoid arthritis) ([facility]) 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 Baer on 09/11/2023. Systemic lupus erythematosus ([facility]) Chief Complaint: Patient presents with: Low Back Pain: Right side-radiating to the buttock, lower limb and feet Intensity of pain: 6 on a scale of 0-10 NRS. Duration of pain: 22 Years ago. The pain is located (low back, right side). Pain Description and Timing: Continuous Pressure, Aching, Sharp, Radiating Alleviating Factors: (Dr. Emery, exercise bands, walking, gabapentin, tizanidine, diclofenac,Tylenol) Patient entered comments: Kvng Landry reports that her pain is unchanged. Her function is unchanged. Pain score today: 6/10 Tracy Landry is a 54-year-old female with a history of chronic pain, MS, and a recent fall, presenting for follow-up. Tracy reports a recent fall at home yesterday, resulting in soreness. The fall occurred when her right leg gave out while she was not using her walker. She denies any concerns about fractures or other serious injuries from the fall. She continues to experience chronic pain, primarily in the lower back, right buttock, leg, and foot. She is currently taking gabapentin, tizanidine, diclofenac, and Tylenol for pain management. She recently discontinued Celebrex due to a potential drug interaction with Mounjaro, which she started under the guidance of her freelance director. She has resumed taking diclofenac but continues to feel pressure in the nerve area. Tracy had a recent consultation with Dr. Champion, which she describes as "fairly well." She is considering a spinal cord stimulator for pain management and has discussed this option with Dr. Emery. She is scheduled for additional sessions with Dr. Champion to prepare for the stimulator trial. She inquires about the possibility of receiving a steroid injection to alleviate inflammation in the meantime. Past Pain Management Procedures, % relief, and duration: 09/02/24 Ortho did R knee CSI 08/10/24 L4-5 laminotomy Past and current medications: Celecoxib Text in 8pt font and Italicized was copied and pasted from the EHR to be considered in my evaluation of this patient today.Those areas highlighted in red are significant and specific to today's encounter. Information copied and pasted from last visit to Pain Management 10/13/2024 The primary encounter diagnosis was Post laminectomy syndrome. Diagnoses of Status post lumbar spine operative procedure for decompression of spinal cord, Pain disorder associated with psychological and physical factors, Radiculopathy, lumbar region, MS (multiple sclerosis) (HCC), S/P cardiac pacemaker procedure, Presence of cardiac pacemaker, and Obesity, Class III, BMI >= 40 were also pertinent to this visit. # Post laminectomy syndrome (M96.1) # Status post lumbar spine operative procedure for decompression of spinal cord (Z98.890) # Radiculopathy, lumbar region (M54.16) Persistent low back pain radiating to anterior and lateral thighs, extending to toes with numbness, predominantly on the right side. No relief from previous laminotomy with decompression performed by Dr. Temple in August. Extensive history of ventura (more content not included)... [facility] 12-01-2024 History of Present illness Narrative Formatting of this note is different fro m the original. Images from the original note were not included. [facility] Pain Management Department Follow-Up Evaluation Chief Complaint: Patient presents with: Low Back Pain: Right side-radiating to the buttock, lower limb and feet SUBJECTIVE Kvngyovani Landry, is a 54 year old with 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[facility]) Depression Diabetes mellitus, type 2 ([facility]) DVT, lower extremity ([facility]) Essential hypertension History of myocardial infarction due to atherothrombotic coronary artery disease Hypothyroidism Malfunction of electrode lead of cardiac pacemaker atrial lead Mixed hyperlipidemia MS (multiple sclerosis) ([facility]) Multiple sclerosis ([facility]) Presence of cardiac pacemaker [employer] dual-chamber MRI conditional pacemaker system implanted 02/06/2021 for second degree AV block; system extracted (removed) 09/11/2023 due to lead malfunction; new Medtronic dual-chamber pacemaker system reimplanted (system will be MRI conditional after 6 weeks post implant) PVC (premature ventricular contraction) RA (rheumatoid arthritis) ([facility]) 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 Baer on 09/11/2023. Systemic lupus erythematosus ([facility]) Chief Complaint: Patient presents with: Low Back Pain: Right side-radiating to the buttock, lower limb and feet Intensity of pain: 6 on a scale of 0-10 NRS. Duration of pain: 22 Years ago. The pain is located (low back, right side). Pain Description and Timing: Continuous Pressure, Aching, Sharp, Radiating Alleviating Factors: (Dr. Emery, exercise bands, walking, gabapentin, tizanidine, diclofenac,Tylenol) Patient entered comments: Kvng Landry reports that her pain is unchanged. Her function is unchanged. Pain score today: 10/13 Tracy Landry is a 54-year-old female with a history of chronic pain, MS, and a recent fall, presenting for follow-up. Tracy reports a recent fall at home yesterday, resulting in soreness. The fall occurred when her right leg gave out while she was not using her walker. She denies any concerns about fractures or other serious injuries from the fall. She continues to experience chronic pain, primarily in the lower back, right buttock, leg, and foot. She is currently taking gabapentin, tizanidine, diclofenac, and Tylenol for pain management. She recently discontinued Celebrex due to a potential drug interaction with Mounjaro, which she started under the guidance of her freelance director. She has resumed taking diclofenac but continues to feel pressure in the nerve area. Tracy had a recent consultation with Dr. Champion, which she describes as "fairly well." She is considering a spinal cord stimulator for pain management and has discussed this option with Dr. Emery. She is scheduled for additional sessions with Dr. Champion to prepare for the stimulator trial. She inquires about the possibility of receiving a steroid injection to alleviate inflammation in the meantime. Past Pain Management Procedures, % relief, and duration: 09/02/24 Ortho did R knee CSI 08/10/24 L4-5 laminotomy Past and current medications: Celecoxib Text in 8pt font and Italicized was copied and pasted from the EHR to be considered in my evaluation of this patient today.Those areas highlighted in red are significant and specific to today's encounter. Information copied and pasted from last visit to Pain Management 10/13/2024 The primary encounter diagnosis was Post laminectomy syndrome. Diagnoses of Status post lumbar spine operative procedure for decompression of spinal cord, Pain disorder associated with psychological and physical factors, Radiculopathy, lumbar region, MS (multiple sclerosis) (HCC), S/P cardiac pacemaker procedure, Presence of cardiac pacemaker, and Obesity, Class III, BMI >= 40 were also pertinent to this visit. # Post laminectomy syndrome (M96.1) # Status post lumbar spine operative procedure for decompression of spinal cord (Z98.890) # Radiculopathy, lumbar region (M54.16) Persistent low back pain radiating to anterior and lateral thighs, extending to toes with numbness, predominantly on the right side. No relief from previous laminotomy with decompression performed by Dr. Temple in August. Extensive history of pain management and physical therapy, with PT reportedly exacerbating symptoms. Previous epidural injections provided initial relief but were ineffective in the last year. - Increase gabapentin to 600 mg TID. - Consider transition to pregabalin if no improvement with increased gabapentin dosage. - Schedule follow-up in 1-2 months to reassess pain management and discuss potential spinal cord stimulator trial. # Pain disorder associated with psychological and physical factors (F45.42) Chronic pain with significant impact on daily functioning. No current evidence of treatable mental conditions contributing to pain. - Schedule evaluation with pain psychologist Lyndsey Emery to assess understanding and readiness for potential spinal cord stimulator trial. # MS (multiple sclerosis) ([facility]) (G35) Diagnosed at age 26, currently managed by Dr. Severino in [place]. Reports worsening symptoms. Potential contributor to bilateral foot numbness. - Follow-up with neurologist Dr. Korin Louis to assess current status and management of MS. - Prioritize control of MS symptoms before proceeding with spinal cord stimulator trial. # S/P cardiac pacemaker procedure (Z95.0) # Presence of cardiac pacemaker (Z95.0) Patient has a cardiac pacemaker in situ. - Ensure compatibility of spinal cord stimulator with existing pacemaker before proceeding with trial. # Obesity, Class III, BMI 40-49.9 (morbid obesity) ([facility]) (E66.813) Contributing factor to increased pressure and heaviness reported in lower extremities. New or Pertinent Imaging Objective December 01, 2024 Past imaging reviewed includes: October 13, 2024 02/21/24 MRI LUMBAR Latest Ref Rng 08/10/2024 Glucose, Point of Care 74 - 99 mg/dL 173 ! Glucose, Point of Care 220 ! Legend: ! Abnormal Labs: (No diagnostics mentioned) Tests: Nerve conduction studies: No results stated - unable to find record. Reports listed here were copied and pasted directly into the note by myself after review of the complete report and/or the images. Those areas highlighted in red are significant to today's encounter. Physical Examination Vitals: BP 148/91 Pulse 84 Resp 16 LMP 08/08/2006 General: Well appearing, alert, in no acute distress, well-hydrated, well nourished. Obese. Mental Status: Alert and Oriented x3. Speech is normal. Affect: even Skin: Skin color, texture, turgor normal, no suspicious rashes or lesions HEENT: Pupils equal, round, reactive to light. Not pinpoint. Pulmonary: Breathing easily without tachypnea or bradypnea. Cardiac: No LE edema. Abdomen: soft, not distended Ambulation: Gait is normal. . Neuro/Musculoskeletal: Cervical Spine: Shoulder: Upper Extremity: Thoracic Spine: Lumbar Spine: Sacroiliac Joint: Lower Extremity: Patient denies any red flag symptoms such as bowel/bladder dysfunction or sudden weakness. Assessment & Plan Assessment & Plan 12/01/2024 The primary encounter diagnosis was Status post lumbar spine operative procedure for decompression of spinal cord. Diagnoses of Post laminectomy syndrome, MS (multiple sclerosis) (HCC), Radiculopathy, lumbar region, S/P cardiac pacemaker procedure, Depression, unspecified depression type, and Pain disorder associated with psychological and physical factors were also pertinent to this visit. # Status post lumbar spine operative procedure for decompression of spinal cord (Z98.890) # Post laminectomy syndrome (M96.1) # Radiculopathy, lumbar region (M54.16) Persistent right-sided low back pain radiating to the buttock, leg, and foot. Recent fall due to right leg giving out. Currently managed with gabapentin, tizanidine, diclofenac, and Tylenol. Patient is a candidate for spinal cord stimulator trial. - Continue current medications: gabapentin, tizanidine, diclofenac, and Tylenol. - Scheduled additional sessions with Dr. Emery to work on cognitive aspects of chronic pain management before proceeding with the spinal cord stimulator trial. - Educated patient on the function of the spinal cord stimulator, explaining that it modulates pain signals without altering anatomy. - Discussed potential benefits and limitations of the stimulator in relation to MS and fibromyalgia. - Advised against steroid injection at this time, focusing on progressing towards the stimulator trial. - Follow-up with Dr. Emery; once ready, will proceed with ordering the spinal cord stimulator trial. # MS (multiple sclerosis) (HCC) (G35) Chronic condition with potential nerve-related pain. Discussed the possibility of the spinal cord stimulator providing some relief for nerve-related pain associated with MS. - Continue current management. - Monitor for any changes in symptoms. # S/P cardiac pacemaker procedure (Z95.0) Stable post-procedure. 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 Patient has been working with Dr. Emery on cognitive aspects of pain management. - Continue sessions with Dr. Emery to enhance cognitive tools for managing chronic pain. - Discussed the importance of cognitive behavioral therapy and relaxation techniques in managing chronic pain. yAaan Moreland MD Electronic signature This office note has been dictated and may contain minor typographic errors that escaped review. Parts of this note may have been input by my medical safety director, resident, fellow, nurse, or nurse practitioner and have been independently verified or corrected as indicated by myself. Relevant History from the Electronic Medical Record Possible Red Flag Kvng Landry has no red flag symptoms. Questionnaires: Descriptive Summary for PROMIS Physical Function T-score = 23 (Percentile 0) Unable - Do chores such as vacuuming or yard work. Much difficulty - Run errands and shop. Much difficulty - Walk about the house. Patient Entered Questionnaires 04/16/2024 08/18/2024 09/20/2024 Spine Questions Pain Location: Lower back Lower back Lower back Symptoms from neck/cervical spine: No No No Employment Status: Other Off work 1 month or more due to back/neck pain: Yes Applied for/receive disability/WC due to low back/neck pain Yes PROMIS Score Percentiles 09/20/2024 11/10/2024 11/26/2024 Physical Health Physical Function Percentile 0 0 Sleep Percentile 4 Fatigue Percentile 1 Pain Interference Percentile 0 0 03/30/2024 08/18/2024 09/20/2024 PROMIS SOCIAL ROLE SCORE Social Role Satisfaction Percentile 1 1 1 07/25/2024 11/10/2024 11/30/2024 PROMIS Global Health Scale Physical Health Percentile 7 2 2 Mental Health Percentile 13 5 5 Patient-reported Percentiles provide an indication of how the patient's score ranks in relation to the general population. Higher percentile rankings indicate better function/quality of life. 50th percentile is the average of the general population and indicates half of respondents had a worse score. Depression Screenin03/30/2024 09/02/2024 09/20/2024 PHQ-9 Score 14 24 22 09/20/2024 09/02/2024 03/30/2024 PHQ-9 Self Harm Question 9 More than half the days More than half the days Several days PHQ-9 Self-Harm (Item 9) response options: 0 Not at all 1 Several days 2 More than half the days 3 Nearly every day PHQ-9 Levels: 0-4 Minimal depression 5-9 Mild depression 10-14 Moderate depression 15-19 Moderately severe depression 20-27 Severe depression PHQ-9 Score 09/20/2024 22 09/02/2024 24 03/30/2024 14 (0-4) minimal depression, (5-9) mild depression, (10-14) moderate depression, (15-19) moderately severe depression, (20-27) severe depression No data to display ALLERGIES Allergen Reactions Codeine Anaphylaxis, Other: See Comments Erythromycin Rash, Swelling Toradol [Ketorolac] Itching Given with Vicodin at the time of the reaction. Vicodin [Hydrocodon* Itching Given with Toradol at the time of the reaction. Amlodipine Other: See Comments Cefdinir Other: See Comments Copaxone [Glatirame* Shortness of Breath Hydrocodone Other: See Comments Jardiance [Empaglif* Other: See Comments Chronic yeast infection Penicillins Hives Current Medications: celecoxib (CELEBREX) 200 mg capsule Take 1 capsule by mouth two times a day. lidocaine (SALONPAS) 4 % patch APPLY ONE PATCH AT NIGHT AND LEAVE ON FOR 12 HOURS THEN REMOVE DURING THE DAY sertraline (ZOLOFT) 50 mg tablet 100 mg. carvedilol (COREG) 25 mg tablet Take by mouth once daily. FREESTYLE LUIS MIGUEL 3 SENSOR wilbur CHANGE SENSOR EVERY 14 DAYS cholecalciferol, Vitamin D3, (VITAMIN D3) 1,250 mcg (50,000 unit) cap capsule Take 1 capsule by mouth one time a week. TRUE METRIX GLUCOSE TEST STRIP test strip use 1 TEST STRIP to TEST BLOOD SUGAR four times a day TRUE METRIX GLUCOSE METER as directed. TRUEPLUS LANCETS 30 gauge use 1 LANCET to TEST BLOOD SUGAR four times a day cholecalciferol (VITAMIN D3) 50 mcg (2,000 unit) tablet Take 2,000 Units by mouth every afternoon. levothyroxine (SYNTHROID) 150 mcg tablet Take 1 tablet by mouth every afternoon. insulin lispro (HUMALOG KWIKPEN) 100 unit/mL 12 UNITS SQ TID, using 14 UNITS SQ TID while on steroids aspirin, enteric coated (ASPIRIN, ENTERIC COATED) 81 mg EC tablet Take 81 mg by mouth once daily. Pxugocrovdyuu-Nclqnkrd-Jnbihj (MULTIVITAMIN 50 PLUS) tab Take 1 tablet by mouth once daily. diroximel fumarate (VUMERITY) 231 mg capsule, delayed release Take 462 mg by mouth two times a day. hydroCHLOROthiazide 25 mg tablet Take 12.5 mg by mouth once daily. rosuvastatin (CRESTOR) 5 mg tablet Take 5 mg by mouth once daily. insulin glargine (LANTUS SOLOSTAR U-100 INSULIN) 100 unit/mL (3 mL) Inject 32 Units subcutaneously every morning. losartan (COZAAR) 50 mg tablet Take 50 mg by mouth two times a day. acetaminophen (TYLENOL) 500 mg tablet Take 1 tablet by mouth every 6 hours as needed. tirzepatide (MOUNJARO) 2.5 mg/0.5 mL pen injector Inject 2.5 mg subcutaneously one time a week. 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HCC) Depression Diabetes mellitus, type 2 ([facility]) DVT, lower extremity ([facility]) Essential hypertension History of myocardial infarction due to atherothrombotic coronary artery disease Hypothyroidism Malfunction of electrode lead of cardiac pacemaker atrial lead Mixed hyperlipidemia MS (multiple sclerosis) ([facility]) Multiple sclerosis ([facility]) Presence of cardiac pacemaker [employer] dual-chamber MRI conditional pacemaker system implanted 02/06/2021 for second degree AV block; system extracted (removed) 09/11/2023 due to lead malfunction; new [employer] dual-chamber pacemaker system reimplanted (system will be MRI conditional after 6 weeks post implant) PVC (premature ventricular contraction) RA (rheumatoid arthritis) ([facility]) 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 Baer on 09/11/2023. Systemic lupus erythematosus (HCC) PAST SURGICAL HISTORY Procedure Laterality Date BASIC PACEMAKER DUAL CHAMBER Left 02/06/2021 [employer] dual-chamber MRI conditional pacemaker system implanted for second degree AV block BASIC PACEMAKER DUAL CHAMBER Left 09/11/2023 [employer] dual-chamber pacemaker system implant; RV septal lead, paced QRS duration 108 ms; system will be MRI conditional after 6 weeks post implant; CCAG Dr. Baer ECHOCARDIOGRAM 08/02/2023 [facility]; see scanned documents LAPAROSCOPY SURG CHOLECYSTECTOMY Cholecystectomy, lap NEUROPLASTY &/TRANSPOS MEDIAN NRV CARPAL TUNNE Carpal tunnel decomp PACEMAKER - REMOVAL/REPOSITION LEAD DUAL Left 09/11/2023 [employer] dual-chamber pacemaker system extraction (removal); CCAG Dr. Baer PAST SURGICAL HISTORY OF uterine ablation TONSILLECTOMY PRIMARY/SECONDARY <AGE 12 Tonsillectomy TOTAL ABDOMINAL HYSTERECT W/WO RMVL TUBE OVARY Hysterectomy, SHADY She reports that she quit smoking about 23 years ago. Her smoking use included cigarettes. She started smoking about 24 years ago. She has a 0.4 pack-year smoking history. She has never used smokeless tobacco. She reports current alcohol use. She reports that she does not use drugs. Medical Decision Making Notes and tests identified as copied and pasted above were directly placed into the frame of this note and are pertinent to my medical decision making. documented in this encounter [facility] 11-18-2024 Instructions Dyana Moran MD - 11/18/2024 1:08 PM EDT We discussed your recent test results and ongoing symptoms: - Your x-rays of the hands and SI joints showed no signs of rheumatoid arthritis or sacroiliitis. There is some thickening in the heel area, which is due to wear and tear but not arthritis. - Your bloodwork showed a positive ROBBI, which will remain high and is not concerning on its own. Tests for rheumatoid arthritis, lupus, vitamin D levels, and muscle enzymes were all normal. The positive ROBBI can be seen in 20% of people and does not indicate systemic disease requiring immune suppression at this time. - Your symptoms of Raynaud s and dry eyes were noted. Dry eyes can be managed with [id number] eye drops or prescription treatments from an space scheduler if needed. Other factors like medications, MS, or diabetes can also contribute to dry eyes. - Your rheumatoid factor was previously slightly positive but is now negative. This fluctuation is normal and non-specific. We discussed your pain management: - You are currently taking diclofenac for pain, and it is fine to continue if it is working for you. - You are following up with Dr. Moreland for pain management. There are additional medications that can be considered for chronic pain related to osteoarthritis and fibromyalgia, which you can discuss with your pain management provider. Follow-up plan: - We will monitor your symptoms, including Raynaud s and dry eyes, to ensure no systemic disease develops over time. - If your symptoms change or worsen, please contact our office. - Continue to follow up with your pain management provider for ongoing care. - Schedule a follow-up appointment with me in one year. My office will reach out to you to arrange this. documented in this encounter [facility] 11-18-2024 Note HNO ID: [id number] Author: DYANA MORAN MD Service: ? Author Type: Physician Type: Progress Notes Filed: 11/18/2024 13:09 Note Text: VIRTUAL VISIT PROGRESS NOTE This is a virtual visit using [employer] Zoom Video Visit. It required patient-provider interaction for the medical decision making as documented below. I have communicated my name and active licensure. The patient's identity and physical location were verified at the time of this visit. Either the patient or their legal product sales representative has been informed of the risks and benefits of -- and alternatives to -- treatment through a remote evaluation and consents to proceed with the evaluation remotely. Kvng Landry is a 54 year old female seen for history of MS, diabetes, and thyroid disease, presenting with joint pain and swelling. . Tracy has been experiencing joint pain and dryness of the eyes. She is currently under the care of a paint brush maker, Dr. Moreland, and is taking diclofenac for pain management, which she reports is effective. She inquires about switching to Celebrex but is advised to continue with diclofenac as it is working well for her. Recent lab results show a positive ROBBI, which is expected to remain elevated. Tests for rheumatoid arthritis are negative, vitamin D levels are normal, and muscle enzymes are within normal limits. Other tests for lupus, aside from the positive ROBBI, are negative. Previous rheumatoid factor was slightly positive but is now negative, with fluctuations considered normal and non-specific. X-rays of the hands show no signs of rheumatoid arthritis, and imaging of the SI joints reveals no sacroiliitis. There is some thickening in the heel area noted on the x-rays, attributed to wear and tear, but no evidence of arthritis. Kvng reports severe arthritis in the right knee and has undergone lower back surgery, which did not alleviate symptoms. She experiences significant swelling and stiffness in her hands, ankles, and feet, particularly in the mornings and after periods of inactivity. The stiffness improves somewhat with movement and hydration in the morning but worsens by the end of the day due to fatigue. She describes the sensation as feeling "bloated" and "crunchy," with difficulty bending and gripping. She also notes stiffness and a "crunchy" sensation in her neck, along with dry eyes and mouth. She has been using Systane eye drops frequently over the past six months due to dryness and itching. She denies any sores in the mouth or nose. Kvng reports hair loss despite normal thyroid function tests and is taking multivitamins but has not tried biotin. She has gained approximately 21 pounds, attributing this to decreased activity following back surgery and frequent falls. She denies any recent changes in weight unrelated to these factors. She experiences paresthesia in her hands and feet, noting an inability to feel her baby toes since 2017. She reports some cephalalgia and vision changes, including tired and dry eyes, but denies double or blurry vision. She experiences a prickly sensation in the sun but denies any rashes that last several days. She reports dry patches on her skin but denies any significant rashes. She notes that her fingertips change color in cold weather, turning blue, white, and red. Kvng has a confirmed diagnosis of MS and is currently on Vumerity. She has a history of positive ROBBI and low-level positive rheumatoid factor but reports that hydroxychloroquine worsened her symptoms when taken twice for a couple of months each time. She denies any history of psoriasis and is unsure of her family history due to being adopted. She reports anxiety and depression, as well as poor sleep, averaging about five hours per night. She is currently taking tizanidine, which helps with sleep, and gabapentin, which she feels is not effective. She denies any gastrointestinal issues such as nausea, diarrhea, or blood in stool but notes that her medications sometimes upset her stomach. Kvng had a pacemaker placed in 2020, which was redone last year. She is currently seeing a new MS doctor and a psychiatrist and is considering a spinal cord stimulator. Smoking status: Tobacco Use: Types: Cigarettes All REVIEW OF SYSTEMS: as noted in HPI Otherwise negative HISTORY REVIEWED (electronic chart updated): 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HCC) Depression Diabetes mellitus, type 2 (HCC) DVT, lower extremity (HCC) Essential hypertension History of myocardial infarction due to atherothrombotic coronary artery disease Hypothyroidism Malfunction of electrode lead of cardiac pacemaker atrial lead Mixed hyperlipidemia MS (multiple sclerosis) (HCC) Multiple sclerosis (HCC) Presence of cardiac pacemaker [employer] dual-chamber MRI conditional p (more content not included)... [facility] 11-18-2024 History of Present illness Narrative Formatting of this note is different fro m the original. VIRTUAL VISIT PROGRESS NOTE This is a virtual visit using [employer] Video Visit. It required patient-provider interaction for the medical decision making as documented below. I have communicated my name and active licensure. The patient's identity and physical location were verified at the time of this visit. Either the patient or their legal product sales representative has been informed of the risks and benefits of -- and alternatives to -- treatment through a remote evaluation and consents to proceed with the evaluation remotely. Kvng Landry is a 54 year old female seen for history of MS, diabetes, and thyroid disease, presenting with joint pain and swelling. . Tracy has been experiencing joint pain and dryness of the eyes. She is currently under the care of a paint brush maker, Dr. Moreland, and is taking diclofenac for pain management, which she reports is effective. She inquires about switching to Celebrex but is advised to continue with diclofenac as it is working well for her. Recent lab results show a positive ROBBI, which is expected to remain elevated. Tests for rheumatoid arthritis are negative, vitamin D levels are normal, and muscle enzymes are within normal limits. Other tests for lupus, aside from the positive ROBBI, are negative. Previous rheumatoid factor was slightly positive but is now negative, with fluctuations considered normal and non-specific. X-rays of the hands show no signs of rheumatoid arthritis, and imaging of the SI joints reveals no sacroiliitis. There is some thickening in the heel area noted on the x-rays, attributed to wear and tear, but no evidence of arthritis. Kvng reports severe arthritis in the right knee and has undergone lower back surgery, which did not alleviate symptoms. She experiences significant swelling and stiffness in her hands, ankles, and feet, particularly in the mornings and after periods of inactivity. The stiffness improves somewhat with movement and hydration in the morning but worsens by the end of the day due to fatigue. She describes the sensation as feeling "bloated" and "crunchy," with difficulty bending and gripping. She also notes stiffness and a "crunchy" sensation in her neck, along with dry eyes and mouth. She has been using Systane eye drops frequently over the past six months due to dryness and itching. She denies any sores in the mouth or nose. Kvng reports hair loss despite normal thyroid function tests and is taking multivitamins but has not tried biotin. She has gained approximately 21 pounds, attributing this to decreased activity following back surgery and frequent falls. She denies any recent changes in weight unrelated to these factors. She experiences paresthesia in her hands and feet, noting an inability to feel her baby toes since 2017. She reports some cephalalgia and vision changes, including tired and dry eyes, but denies double or blurry vision. She experiences a prickly sensation in the sun but denies any rashes that last several days. She reports dry patches on her skin but denies any significant rashes. She notes that her fingertips change color in cold weather, turning blue, white, and red. Kvng has a confirmed diagnosis of MS and is currently on Vumerity. She has a history of positive ROBBI and low-level positive rheumatoid factor but reports that hydroxychloroquine worsened her symptoms when taken twice for a couple of months each time. She denies any history of psoriasis and is unsure of her family history due to being adopted. She reports anxiety and depression, as well as poor sleep, averaging about five hours per night. She is currently taking tizanidine, which helps with sleep, and gabapentin, which she feels is not effective. She denies any gastrointestinal issues such as nausea, diarrhea, or blood in stool but notes that her medications sometimes upset her stomach. Kvng had a pacemaker placed in 2020, which was redone last year. She is currently seeing a new MS doctor and a psychiatrist and is considering a spinal cord stimulator. Smoking status: Tobacco Use: Types: Cigarettes All REVIEW OF SYSTEMS: as noted in HPI Otherwise negative HISTORY REVIEWED (electronic chart updated): 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[facility]) Depression Diabetes mellitus, type 2 ([facility]) DVT, lower extremity ([facility]) Essential hypertension History of myocardial infarction due to atherothrombotic coronary artery disease Hypothyroidism Malfunction of electrode lead of cardiac pacemaker atrial lead Mixed hyperlipidemia MS (multiple sclerosis) ([facility]) Multiple sclerosis ([facility]) Presence of cardiac pacemaker [employer] dual-chamber MRI conditional pacemaker system implanted 02/06/2021 for second degree AV block; system extracted (removed) 09/11/2023 due to lead malfunction; new Medtronic dual-chamber pacemaker system reimplanted (system will be MRI conditional after 6 weeks post implant) PVC (premature ventricular contraction) RA (rheumatoid arthritis) ([facility]) 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 Baer on 09/11/2023. Systemic lupus erythematosus (HCC) PAST SURGICAL HISTORY Procedure Laterality Date BASIC PACEMAKER DUAL CHAMBER Left 02/06/2021 [employer] dual-chamber MRI conditional pacemaker system implanted for second degree AV block BASIC PACEMAKER DUAL CHAMBER Left 09/11/2023 Medtronic dual-chamber pacemaker system implant; RV septal lead, paced QRS duration 108 ms; system will be MRI conditional after 6 weeks post implant; [facility]AG Dr. Baer ECHOCARDIOGRAM 08/02/2023 [facility]; see scanned documents LAPAROSCOPY SURG CHOLECYSTECTOMY Cholecystectomy, lap NEUROPLASTY &/TRANSPOS MEDIAN NRV CARPAL TUNNE Carpal tunnel decomp PACEMAKER - REMOVAL/REPOSITION LEAD DUAL Left 09/11/2023 [employer] dual-chamber pacemaker system extraction (removal); [facility]AG Dr. Baer PAST SURGICAL HISTORY OF uterine ablation TONSILLECTOMY PRIMARY/SECONDARY <AGE 12 Tonsillectomy TOTAL ABDOMINAL HYSTERECT W/WO RMVL TUBE OVARY Hysterectomy, SHADY FAMILY HISTORY Adopted: Yes Problem Relation Age of Onset No Known Problems Mother adopted, but knows some medical facts about mother other (other) Father adopted, does not know anything about father Breast Cancer Maternal Grandmother Alcohol abuse Maternal Grandfather Social History Tobacco Use Smoking status: Former Current packs/day: 0.00 Average packs/day: 0.3 packs/day for 1.5 years (0.4 ttl pk-yrs) Types: Cigarettes Start date: 02/24/2000 Quit date: 2001 Years since quittin.2 Smokeless tobacco: Never Vaping Use Vaping status: Never Used Substance Use Topics Alcohol use: Yes Comment: few times per week Drug use: No Current Outpatient Medications Medication Sig methocarbamol (ROBAXIN) 500 mg tablet TAKE 1 TABLET BY MOUTH THREE TIMES A DAY NEEDED (MUSCLE SPASM) FOR UP TO 7 DAYS. celecoxib (CELEBREX) 200 mg capsule Take 1 capsule by mouth two times a day. lidocaine (SALONPAS) 4 % patch APPLY ONE PATCH AT NIGHT AND LEAVE ON FOR 12 HOURS THEN REMOVE DURING THE DAY sertraline (ZOLOFT) 50 mg tablet 100 mg. carvedilol (COREG) 25 mg tablet Take by mouth once daily. FREESTYLE LUIS MIGUEL 3 SENSOR wilbur CHANGE SENSOR EVERY 14 DAYS cholecalciferol, Vitamin D3, (VITAMIN D3) 1,250 mcg (50,000 unit) cap capsule Take 1 capsule by mouth one time a week. TRUE METRIX GLUCOSE TEST STRIP test strip use 1 TEST STRIP to TEST BLOOD SUGAR four times a day TRUE METRIX GLUCOSE METER as directed. TRUEPLUS LANCETS 30 gauge use 1 LANCET to TEST BLOOD SUGAR four times a day cholecalciferol (VITAMIN D3) 50 mcg (2,000 unit) tablet Take 2,000 Units by mouth every afternoon. levothyroxine (SYNTHROID) 150 mcg tablet Take 1 tablet by mouth every afternoon. insulin lispro (HUMALOG KWIKPEN) 100 unit/mL 12 UNITS SQ TID, using 14 UNITS SQ TID while on steroids aspirin, enteric coated (ASPIRIN, ENTERIC COATED) 81 mg EC tablet Take 81 mg by mouth once daily. omega-3 fatty acids/fish oil (FISH OIL-OMEGA-3 FATTY ACIDS) 300-1,000 mg cap Take by mouth. (Patient not taking: Reported on 10/22/2024) Jsqtglrbosurw-Yczsrfak-Jlqsac (MULTIVITAMIN 50 PLUS) tab Take 1 tablet by mouth once daily. Ascorbic Acid (VITAMIN C) 1,000 mg tablet Take 1,000 mg by mouth once daily. (Patient not taking: Reported on 10/22/2024) diroximel fumarate (VUMERITY) 231 mg capsule, delayed release Take 462 mg by mouth two times a day. hydroCHLOROthiazide 25 mg tablet Take 12.5 mg by mouth once daily. rosuvastatin (CRESTOR) 5 mg tablet Take 5 mg by mouth once daily. insulin glargine (LANTUS SOLOSTAR U-100 INSULIN) 100 unit/mL (3 mL) Inject 32 Units subcutaneously every morning. gabapentin (NEURONTIN) 600 mg tablet Take 600 mg by mouth three times a day. losartan (COZAAR) 50 mg tablet Take 50 mg by mouth two times a day. acetaminophen (TYLENOL) 500 mg tablet Take 1 tablet by mouth every 6 hours as needed. No current facility-administered medications for this visit. ALLERGIES Allergen Reactions Codeine Anaphylaxis, Other: See Comments Erythromycin Rash, Swelling Toradol [Ketorolac] Itching Given with Vicodin at the time of the reaction. Vicodin [Hydrocodon* Itching Given with Toradol at the time of the reaction. Amlodipine Other: See Comments Cefdinir Other: See Comments Copaxone [Glatirame* Shortness of Breath Hydrocodone Other: See Comments Jardiance [Empaglif* Other: See Comments Chronic yeast infection Penicillins Hives REVIEW OF SYSTEMS: All other ROS: negative As noted in HPI PHYSICAL EXAMINATION: VIDEO EXAM: (if completed, performed via video enabled technology) GENERAL: alert and appropriate, in no distress, well-hydrated, well nourished, and happy, smiling, interactive Latest Reference Range & Units 10/22/24 15:16 CCP Antibody IgG Qualitative Negative Negative ROBBI Negative Positive ! ROBBI Pattern Nuclear homogeneous ROBBI Titer >1:1280 Anti-RESEARCH ARCHAEOLOGIST <1.0 AI 0.3 Anti-Sm <1.0 AI <0.2 Anti-SSA <1.0 AI <0.2 Anti-SSB <1.0 AI <0.2 CCP Antibody, IgG <20 Units <15 Crithidia lucillae Negative Negative DNA Antibody <=200 IU/mL 52 DNA Antibody Qualitative Interpretation Negative Negative Protein, Urine Random 0 - 20 mg/dL 15 Rheumatoid Factor <16 IU/mL 12 RESEARCH ARCHAEOLOGIST Antibody QUAL Negative Negative Sm Antibody Negative Negative SSA Antibody Qual Negative Negative SSB Antibody Qual Negative Negative Vitamin D 25 Hydroxy >=30.0 ng/mL 50.6 !: Data is abnormal IMPRESSION: Bilateral calcaneal enthesopathy. Otherwise, negative bilateral feet. TECHNIQUE: PA, lateral and oblique of both hands are presented. FINDINGS: No fractures or subluxations are noted. No bony erosions are seen. The joint spaces are well preserved. The mineralization of the bones is normal. There is no significant soft tissue swelling. ASSESSMENT: (R76.8) ROBBI positive (primary encounter diagnosis) (I73.00) Raynaud's phenomenon without gangrene (H04.123) Dry eye syndrome of both eyes (M79.7) Fibromyalgia Previous tests showed positive ROBBI and low-level positive rheumatoid factor. Further testing for lupus and rheumatoid arthritis was negative. Positive ROBBI and rheumatoid factor can be false positives and are non-specific. Raynaud's disease without gangrene Severe osteoarthritis in the right knee Dry eye syndrome of both eyes PLAN: # ROBBI positive (R76.8) ROBBI remains positive, which is expected to persist. No evidence of systemic disease requiring immunosuppression. Previous tests for rheumatoid arthritis were negative, and all other tests for lupus, except ROBBI, were negative. Rheumatoid factor was previously slightly positive but is now negative, which is non-specific and can fluctuate. - Monitor for any changes or evolution of symptoms. - Follow-up in one year unless symptoms change. # Raynaud's phenomenon without gangrene (I73.00) Raynaud's phenomenon present, contributing to the decision to investigate further for systemic disease. - Continue monitoring for any changes. # Dry eye syndrome of both eyes (H04.123) Dry eye syndrome noted. No systemic disease identified that would require immunosuppression. - Continue using keeb-gms-ntxfnez eye drops. - Consider prescription eye drops or procedures from ophthalmology if symptoms persist. # Fibromyalgia (M79.7) Chronic pain management ongoing with Dr. Moreland. Currently taking diclofenac, which is effective. - Continue diclofenac. - Discussed potential alternative medications for chronic pain management with paint brush maker. Patient Instructions We discussed your recent test results and ongoing symptoms: - Your x-rays of the hands and SI joints showed no signs of rheumatoid arthritis or sacroiliitis. There is some thickening in the heel area, which is due to wear and tear but not arthritis. - Your bloodwork showed a positive ROBBI, which will remain high and is not concerning on its own. Tests for rheumatoid arthritis, lupus, vitamin D levels, and muscle enzymes were all normal. The positive ROBBI can be seen in 20% of people and does not indicate systemic disease requiring immune suppression at this time. - Your symptoms of Raynaud s and dry eyes were noted. Dry eyes can be managed with fhac-zhq-ahctwsl eye drops or prescription treatments from an space scheduler if needed. Other factors like medications, MS, or diabetes can also contribute to dry eyes. - Your rheumatoid factor was previously slightly positive but is now negative. This fluctuation is normal and non-specific. We discussed your pain management: - You are currently taking diclofenac for pain, and it is fine to continue if it is working for you. - You are following up with Dr. Moreland for pain management. There are additional medications that can be considered for chronic pain related to osteoarthritis and fibromyalgia, which you can discuss with your pain management provider. Follow-up plan: - We will monitor your symptoms, including Raynaud s and dry eyes, to ensure no systemic disease develops over time. - If your symptoms change or worsen, please contact our office. - Continue to follow up with your pain management provider for ongoing care. - Schedule a follow-up appointment with me in one year. My office will reach out to you to arrange this. I spent a total of 20 minutes on the date of the service which included preparing to see the patient, borq-kv-sdrw patient care, completing clinical documentation, obtaining and/or reviewing separately obtained history, performing a medically appropriate examination, counseling and educating the patient/family/caregiver, ordering medications, tests, or procedures, independently interpreting results (not separately reported), and communicating results to the patient/family/caregiver Dyana Moran MD No orders found for this visit on 11/18/24. No orders of the defined types were placed in this encounter. Recording using [employer] software for draft documentation of the visit was discussed with the patient/authorized product sales representative; all questions welcomed and answered. Patient/authorized product sales representative agreed to proceed documented in this encounter [facility] 11-17-2024 History of Present illness Narrative Formatting of this note is different fro m the original. [facility]INE EVALUATION REFERRING PHYSICIAN: Ayaan Moreland MD; Shawn Everett MD ATTENDING PHYSICIAN: Lyndsey Desai, PHD Kvng Landry PATIENT TYPE: [facility] : 1970 DATE OF SERVICE: November 17, 2024 IDENTIFYING INFORMATION Kvng Landry is a 54 year old female from [place], [place] who was referred for evaluation by Ayaan Moreland MD; Shawn Everett MD to determine if she would be an appropriate candidate for spinal cord stimulator. 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 Her pain is mostly in her right lower back, hip, and down her right lower extremity and her knee with some symptoms on the left. Her usual pain intensity is 6-7 on a en pointe scale, subsiding to 3-4 and escalating to 8, the level it had been and escalating to 8, the level it had been prior to her spine surgery. She describes tingling, numbness in her crotch which causes difficulty identifying urges to urinate. She states she is unable to feel the last 3 toes on each foot. Sitting causes a lot of pressure and shooting pain; standing causes pulling, heavy, sharp pain. Walking feels as if there were sandbags pulling on her. She finds some relief by placing ice on her lower back, using gabapentin, diclofenac, and doing some stretches in bed. She states some days it is really difficult to do normal tasks. CIRCUMSTANCES OF ONSET Her pain began at this level in 2017, but there were symptoms even before that; however, that is when she has sought treatment. She reports it may have been of gradual onset, but she also may have lifted a box that was too heavy. She was also diagnosed with MS at age 26 and has been considering seeing a neurologist at [facility] at the [facility], but also likes her current neurologist. She has had pain after recent laminotomy and decompression surgery. OTHER PHYSICAL CONDITIONS There are no active hospital problems to display for this patient. 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[facility]) Depression Diabetes mellitus, type 2 ([facility]) DVT, lower extremity ([facility]) Essential hypertension History of myocardial infarction due to atherothrombotic coronary artery disease Hypothyroidism Malfunction of electrode lead of cardiac pacemaker atrial lead Mixed hyperlipidemia MS (multiple sclerosis) ([facility]) Multiple sclerosis ([facility]) Presence of cardiac pacemaker [employer] dual-chamber MRI conditional pacemaker system implanted 02/06/2021 for second degree AV block; system extracted (removed) 09/11/2023 due to lead malfunction; new [employer] dual-chamber pacemaker system reimplanted (system will be MRI conditional after 6 weeks post implant) PVC (premature ventricular contraction) RA (rheumatoid arthritis) ([facility]) 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 Baer on 09/11/2023. Systemic lupus erythematosus ([facility]) PAST SURGICAL HISTORY Procedure Laterality Date BASIC PACEMAKER DUAL CHAMBER Left 02/06/2021 [employer] dual-chamber MRI conditional pacemaker system implanted for second degree AV block BASIC PACEMAKER DUAL CHAMBER Left 09/11/2023 [employer] dual-chamber pacemaker system implant; RV septal lead, paced QRS duration 108 ms; system will be MRI conditional after 6 weeks post implant; [facility] Dr. Baer ECHOCARDIOGRAM 08/02/2023 [facility]; see scanned documents LAPAROSCOPY SURG CHOLECYSTECTOMY Cholecystectomy, lap NEUROPLASTY &/TRANSPOS MEDIAN NRV CARPAL TUNNE Carpal tunnel decomp PACEMAKER - REMOVAL/REPOSITION LEAD DUAL Left 09/11/2023 [employer] dual-chamber pacemaker system extraction (removal); CLAUDIAG Dr. Baer PAST SURGICAL HISTORY OF uterine ablation TONSILLECTOMY PRIMARY/SECONDARY <AGE 12 Tonsillectomy TOTAL ABDOMINAL HYSTERECT W/WO RMVL TUBE OVARY Hysterectomy, SHADY RELEVANT MEDICAL HISTORY She had spine surgery 08/10/24, with Dr. Temple. It is noted she also has diabetes, and a [employer] cardiac pacemaker. She has had injections in her back which helped for a while, then stopped helping. Physical therapy aggravates her condition. She saw a psychologist a few years ago, nothing recent. She has not had a TENS unit. When asked what treatments helped the most, she responded to the epidural steroid injections while they work. She has been seen in a pain management program in [place]. She notes that gabapentin is taking part of the edge off her pain. CURRENT MEDICATIONS Current Outpatient Medications Medication Sig Dispense Refill methocarbamol (ROBAXIN) 500 mg tablet TAKE 1 TABLET BY MOUTH THREE TIMES A DAY NEEDED (MUSCLE SPASM) FOR UP TO 7 DAYS. 21 tablet 0 celecoxib (CELEBREX) 200 mg capsule Take 1 capsule by mouth two times a day. 60 capsule 1 lidocaine (SALONPAS) 4 % patch APPLY ONE PATCH AT NIGHT AND LEAVE ON FOR 12 HOURS THEN REMOVE DURING THE DAY sertraline (ZOLOFT) 50 mg tablet 100 mg. carvedilol (COREG) 25 mg tablet Take by mouth once daily. FREESTYLE LUIS MIGUEL 3 SENSOR wilbur CHANGE SENSOR EVERY 14 DAYS cholecalciferol, Vitamin D3, (VITAMIN D3) 1,250 mcg (50,000 unit) cap capsule Take 1 capsule by mouth one time a week. TRUE METRIX GLUCOSE TEST STRIP test strip use 1 TEST STRIP to TEST BLOOD SUGAR four times a day TRUE METRIX GLUCOSE METER as directed. TRUEPLUS LANCETS 30 gauge use 1 LANCET to TEST BLOOD SUGAR four times a day cholecalciferol (VITAMIN D3) 50 mcg (2,000 unit) tablet Take 2,000 Units by mouth every afternoon. levothyroxine (SYNTHROID) 150 mcg tablet Take 1 tablet by mouth every afternoon. insulin lispro (HUMALOG KWIKPEN) 100 unit/mL 12 UNITS SQ TID, using 14 UNITS SQ TID while on steroids aspirin, enteric coated (ASPIRIN, ENTERIC COATED) 81 mg EC tablet Take 81 mg by mouth once daily. omega-3 fatty acids/fish oil (FISH OIL-OMEGA-3 FATTY ACIDS) 300-1,000 mg cap Take by mouth. (Patient not taking: Reported on 10/22/2024) Hpwgfdfnchpoj-Xwzmqliu-Srgigq (MULTIVITAMIN 50 PLUS) tab Take 1 tablet by mouth once daily. Ascorbic Acid (VITAMIN C) 1,000 mg tablet Take 1,000 mg by mouth once daily. (Patient not taking: Reported on 10/22/2024) diroximel fumarate (VUMERITY) 231 mg capsule, delayed release Take 462 mg by mouth two times a day. hydroCHLOROthiazide 25 mg tablet Take 12.5 mg by mouth once daily. rosuvastatin (CRESTOR) 5 mg tablet Take 5 mg by mouth once daily. insulin glargine (LANTUS SOLOSTAR U-100 INSULIN) 100 unit/mL (3 mL) Inject 32 Units subcutaneously every morning. gabapentin (NEURONTIN) 600 mg tablet Take 600 mg by mouth three times a day. losartan (COZAAR) 50 mg tablet Take 50 mg by mouth two times a day. acetaminophen (TYLENOL) 500 mg tablet Take 1 tablet by mouth every 6 hours as needed. 0 No current facility-administered medications for this visit. ALLERGIES ALLERGIES Allergen Reactions Codeine Anaphylaxis, Other: See Comments Erythromycin Rash, Swelling Toradol [Ketorolac] Itching Given with Vicodin at the time of the reaction. Vicodin [Hydrocodon* Itching Given with Toradol at the time of the reaction. Amlodipine Other: See Comments Cefdinir Other: See Comments Copaxone [Glatirame* Shortness of Breath Hydrocodone Other: See Comments Jardiance [Empaglif* Other: See Comments Chronic yeast infection Penicillins Hives SUBSTANCE USE She denies alcohol, tobacco, marijuana, CBD consumption. Caffeine averages about 3 caffeinated beverages a day, perhaps 1 coffee, 1 tea, and 1 diet soda. She denies any history of substance abuse. FAMILY HISTORY Her mother is . She states she had back surgery and became septic. She has no information on her father. She was adopted at 6 weeks of age and raised as a single child. She had a mostly pretty good relationship, noting that although there was no abuse, the household was very strict and her father was pretty hodge. She is 28 years, with no previous marriages and has 2 grown sons, a 25-year-old who lives 3 miles away and a 23-year-old in the [facility] in [place] who is about to be deployed. She is hoping to be able to visit him before then. Just she and her live together. He is and electrical controls designer. She describes the relationship with each other as being good. 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 In the past she worked in the [employer]. INTERVIEW She arrived for her appointment neatly groomed, with good attention to personal hygiene. She ambulates with a cane, and was able to sit throughout her session. She was friendly, pleasant, and cooperative. She was asked about memory problems and acknowledges being more forgetful recently. She has difficulty concentrating. She reports no significant mood changes. She experiences frustration some days, and irritability some days. Anxiety has been more lately. She has also been more depressed for the past 2 years. She states her pacemaker was extracted and replaced with a Medtronic unit. She denies problems with anger. She denies suicidal ideation. She states that she feels overwhelmed lately and that it does not help being home a lot. She adds "I've just gotten in a funk; I'd like to get out of it." We discussed that I could provide therapy for her if she would like. She was given my card and did make a follow-up appointment for virtual visit. She has difficulty with sleep onset at times and mostly has difficulty staying asleep, stating that she awakens and is unable to shut off her thoughts. She does not do much exercise besides some stretches in bed and a little bit of walking, but has had pain in her knees for which she was just given an injection. She recognizes the impact of her weight on her pain problems and stated that she is about to start Mounjaro for weight loss. She has relinquished getting together with friends, especially if walking is involved, and she is not able to go to the grocery store; she calls in an order and then drives by to pick it up. In the spring her helped her plants garay and she enjoys feeding and watching the birds, sitting on her deck. Recently she prepared a meal for the [employer]. Lately her time has been spent going to doctors appointments, 3 this week and going to work part-time. If she had some relief from her pain, she would like to go on vacation to visit her son in [place] before his deployment, and also go to [facility] in [place] with her . She does not know what to expect for the stimulator but is hopeful. She would like 60-70% relief, but states she would be fine with 50-60%. She is concerned about a spinal leak and also about having MRIs. We discussed the stimulator in detail utilizing demonstration models and visual images, reviewing pulse generation, high-frequency, and closed-loop technologies. She states Dr. Moreland plans to use a Medtronic device as she already has a Medtronic pacemaker. We addressed the trial process, permanent implant, and recharging, as well as the ability to readjust the IPG with significant weight loss. TESTS ADMINISTERED 1. [place] Depression Inventory (BDI-II) 2. Pain Disability Index (PDI) 3. Personality Assessment Inventory (VENTURA) 4. Chronic Pain Coping Inventory (CPCI) TEST INTERPRETATION Her score of 30 on the BDI suggests severe depression without suicidal ideation. Her score of 34 on the Oswestry is indicative of severe depression. Her scores on illness focused coping strategies on the CPCI are all in the moderate/subclinical range with a moderate need for improvement in guarding, indicating avoiding people, places, activities because of her pain, resting, and asking for assistance. All of her wellness focused coping strategies are also in the moderate/subclinical range with just a mild need for improvement in coping self statements, pacing, seeking social support. There is a more moderate need for improvement in exercise/stretching, despite saying she does not really do much beyond simple stretching. She also has a moderate need for improvement in relaxation, a stronger need for improvement in task persistence. She was also administered The Personality Assessment Inventory, the results of which suggest she responded to test items in an open honest manner in a profile suggestive of someone in distress who is very receptive to having help for her problems. She sees herself as having a great many health concerns upon which she is highly focused and prone to internalizing her emotions and finding may contribute to increased physical distress. She does report some of the cognitive aspects of anxiety and depression, perhaps making it difficult to concentrate along with some memory issues, which she has acknowledged. She reports a moderate elevation on the emotional and physiological aspects of anxiety, with the latter likely reflecting tension. She has moderate elevations on the anxiety related disorders, indicative of someone who is likely to be a bit of a perfectionist and easily frustrated when she is unable to do what she wants, as she wants. She is likely to have some fears, and a moderate elevation on traumatic stress, which will be explored further in therapy as she did not report any other than growing up in a very strict household. Depression is highly elevated on cognitive, emotional, and physiological domains, with the latter likely reflective of fatigue, lack of energy, sleep disturbance. She may be a bit irritable. She is likely to have mild to moderate difficulty trusting people, feeling she has been treated unfairly, and may have some resentment in that regard. There are no indications of psychotic experiences. She is moderately socially detached, and prone to worry a great deal. She has a moderate elevation on all of the characteristics on the borderline scale including emotional instability, identity issues, difficulty in relationships, and self-harm; again, these are moderately elevated, with self-harm mild to moderate. The test does not indicate what that may detail; however, it refers to any type of self-defeating behavior. There are no indications of antisocial behavior. She denies problems with drugs. She denies anger, suggesting the likelihood of internalizing that, and finding it contributes to increased physical distress. She may then reach the point where she loses her temper. She has a mild to moderate elevation on suicidal ideation, with no indication of any intent to harm herself, but acknowledgment of no interest in life. She sees herself as having generally low stress, but not a lot of support and not a lot of control over her life. She is likely to be self-conscious in social situations and uncomfortable asserting herself. As a result, she may avoid social interactions. IMPRESSIONS 1. 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 2. She has been dealing with multiple sclerosis since age 26. 3. She is concerned about some of the ramifications of her pain, particularly the numbness in her crotch which inhibits her ability to send urinary urgency. 4. It is positive that she has responded well to blocks in the past; although physical therapy aggravated her condition. 5. She reports having a long-term stable relationship with her spouse and is close with her 2 sons and their families. 1 son is a marine in [place] about to deploy and she is especially looking forward to some relief to enable her to visit him prior to his deployment. Despite this, she does not see herself as having sufficient support. 6. 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 7. She also has positive goals of vacationing in [facility] with her . 8. Areas of concern include that she is not doing much exercise beyond simple stretches in bed. 9. She recognizes the impact of her weight on her pain problems and mobility. She notes she is about to start taking Mounjaro and is looking forward to working with her physician weight loss. 10. Her testing indicates some areas of difficulty including 2 of the predictors for unfavorable outcomes when presenting in conjunction with each other, those being depression and identity issues, with the latter just moderately elevated, and the former standing alone presenting difficulties hanging successful outcomes for neuromodulation. There are also mixed personality characteristics which may present difficulties for her. 11. She does not know what to expect for the stimulator but is hopeful. She would like 60-70% relief, but states she would be fine with 50-60%. She is concerned about a spinal leak and also about having MRIs. We discussed the stimulator in detail utilizing demonstration models and visual images, reviewing pulse generation, high-frequency, and closed-loop technologies. She states Dr. Moreland plans to use a Medtronic device as she already has a Medtronic pacemaker. We addressed the trial process, permanent implant, and recharging, as well as the ability to readjust the IPG with significant weight loss. 12. She is also likely to have depression, unspecified type, F32.A. RECOMMENDATIONS 1. It is recommended that she proceed to a trial of the spinal cord stimulator in conjunction with therapy. Depression is a factor that can preclude successful outcomes. She is open to the idea of therapy and when given the option of scheduling an appointment to start, she did proceed to do so. We will be working together throughout the spinal cord stimulator process to help with adjustments and concerns as well as management of depression. 2. She was instructed in the need to maintain a journal of activities, pain, sleep, what she likes and does not like in order to to determine whether or not to continue to permanent implant. 3. If she does well with the trial, and would like to continue to permanent implant, it would be so indicated. 4. We will be able to work together virtually on pain and stress management, in addition to depression. This would include coping strategies, relaxation skills, sleep strategies, increased functional/recreational/exercise, and adjustment to neuromodulation. Cognitive behavioral therapy will be incorporated. Lyndsey Desai, documented in this encounter [facility] 11-17-2024 Note HNO ID: [id number] Author: LYNDSEY HEDRICK, PhD Service: ? Author Type: Psychologist Type: Progress Notes Filed: 11/18/2024 10:12 Note Text: [facility] REFERRING PHYSICIAN: Ayaan Moreland MD; Shawn Everett MD ATTENDING PHYSICIAN: Lyndsey Desai, PHD Kvng Landry PATIENT TYPE: [facility] : 1970 DATE OF SERVICE: November 17, 2024 IDENTIFYING INFORMATION Kvng Landry is a 54 year old female from [place], [place] who was referred for evaluation by Ayaan Moreland MD; Shawn Everett MD to determine if she would be an appropriate candidate for spinal cord stimulator. 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 Her pain is mostly in her right lower back, hip, and down her right lower extremity and her knee with some symptoms on the left. Her usual pain intensity is 6-7 on a en pointe scale, subsiding to 3-4 and escalating to 8, the level it had been and escalating to 8, the level it had been prior to her spine surgery. She describes tingling, numbness in her crotch which causes difficulty identifying urges to urinate. She states she is unable to feel the last 3 toes on each foot. Sitting causes a lot of pressure and shooting pain; standing causes pulling, heavy, sharp pain. Walking feels as if there were sandbags pulling on her. She finds some relief by placing ice on her lower back, using gabapentin, diclofenac, and doing some stretches in bed. She states some days it is really difficult to do normal tasks. CIRCUMSTANCES OF ONSET Her pain began at this level in 2017, but there were symptoms even before that; however, that is when she has sought treatment. She reports it may have been of gradual onset, but she also may have lifted a box that was too heavy. She was also diagnosed with MS at age 26 and has been considering seeing a neurologist at [facility] at the [facility], but also likes her current neurologist. She has had pain after recent laminotomy and decompression surgery. OTHER PHYSICAL CONDITIONS There are no active hospital problems to display for this patient. 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[facility]) Depression Diabetes mellitus, type 2 ([facility]) DVT, lower extremity ([facility]) Essential hypertension History of myocardial infarction due to atherothrombotic coronary artery disease Hypothyroidism Malfunction of electrode lead of cardiac pacemaker atrial lead Mixed hyperlipidemia MS (multiple sclerosis) ([facility]) Multiple sclerosis ([facility]CC) Presence of cardiac pacemaker [employer] dual-chamber MRI conditional pacemaker system implanted 02/06/2021 for second degree AV block; system extracted (removed) 09/11/2023 due to lead malfunction; new Medtronic dual-chamber pacemaker system reimplanted (system will be MRI conditional after 6 weeks post implant) PVC (premature ventricular contraction) RA (rheumatoid arthritis) ([facility]) 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 Baer on 09/11/2023. Systemic lupus erythematosus ([facility]) PAST SURGICAL HISTORY Procedure Laterality Date BASIC PACEMAKER DUAL CHAMBER Left 02/06/2021 [employer] dual-chamber MRI conditional pacemaker system implanted for second degree AV block BASIC PACEMAKER DUAL CHAMBER Left 09/11/2023 Medtronic dual-chamber pacemaker system implant; RV septal lead, paced QRS duration 108 ms; system will be MRI conditional after 6 weeks post implant; [facility] Dr. Baer ECHOCARDIOGRAM 08/02/2023 [facility]; see scanned documents LAPAROSCOPY SURG CHOLECYSTECTOMY Cholecystectomy, lap NEUROPLASTY AND/TRANSPOS MEDIAN NRV CARPAL TUNNE Carpal tunnel decomp PACEMAKER - REMOVAL/REPOSITION LEAD DUAL Left 09/11/2023 [employer] dual-chamber pacemaker system extraction (removal); [facility]AG Dr. Baer PAST SURGICAL HISTORY OF uterine ablation TONSILLECTOMY PRIMARY/SECONDARY Tonsillectomy TOTAL ABDOMINAL HYSTERECT W/WO RMVL TUBE OVARY Hysterectomy, SHADY RELEVANT MEDICAL HISTORY (more content not included)... [facility] 11-17-2024 Telephone encounter Note Formatting of this note might be differe nt from the original. NEUROSURGERY CARE COORDINATION [facility] QUICK NOTE Noted new Methocarbamol (Robaxin) prescription written by REBEKA. No further action required by this RN at this time. TRINI Cohen, RN November 17, 2024 9:49 AM [facility] 11-17-2024 Miscellaneous Notes Formatting of this note might be differe nt from the original. NEUROSURGERY CARE COORDINATION [facility] QUICK NOTE Noted new Methocarbamol (Robaxin) prescription written by REBEKA. No further action required by this RN at this time. TRINI Cohen, RN November 17, 2024 9:49 AM NEUROSURGERY CARE COORDINATION [facility] QUICK NOTE Chart reviewed. Patient S/P Right MIS Approach to Bilateral L4/[address] Everett on 08/10. Noted most recent post-op appointment with Dr. Everett dated 09/22. Noted recent encounters. Reviewed Methocarbamol (Robaxin) prescription. Routing to NSGY team. TRINI Cohen, RN November 17, 2024 8:58 AM Physician: Dr. Everett Call from pharmacy requesting refill. Please E-Scribe Last OV: 09/22/2024 Future OV: NS Requested Prescriptions Pending Prescriptions Disp Refills methocarbamol (ROBAXIN) 500 mg tablet [Pharmacy Med Name: METHOCARBAMOL 500 MG TABLET] 21 tablet 0 Sig: TAKE 1 TABLET BY MOUTH THREE TIMES A DAY NEEDED (MUSCLE SPASM) FOR UP TO 7 DAYS. Pharmacy Name: [facility] Pharmacy Tracie Sparks documented in this encounter [facility] 11-17-2024 Telephone encounter Note Formatting of this note might be differe nt from the original. NEUROSURGERY CARE COORDINATION [facility] QUICK NOTE Chart reviewed. Patient S/P Right MIS Approach to Bilateral L4/[address] Everett on 08/10. Noted most recent post-op appointment with Dr. Everett dated 09/22. Noted recent encounters. Reviewed Methocarbamol (Robaxin) prescription. Routing to NSGY team. TRINI Cohen, RN November 17, 2024 8:58 AM [facility] 11-17-2024 Telephone encounter Note Formatting of this note is different fro m the original. Physician: Dr. Everett Call from pharmacy requesting refill. Please E-Scribe Last OV: 09/22/2024 Future OV: NS Requested Prescriptions Pending Prescriptions Disp Refills methocarbamol (ROBAXIN) 500 mg tablet [Pharmacy Med Name: METHOCARBAMOL 500 MG TABLET] 21 tablet 0 Sig: TAKE 1 TABLET BY MOUTH THREE TIMES A DAY NEEDED (MUSCLE SPASM) FOR UP TO 7 DAYS. Pharmacy Name: [facility] Pharmacy Tracie Sparks [facility] 11-13-2024 Note HNO ID: [id number] Author: STEWART FRANKS PA-C Service: ? Author Type: Physician Home Care Rn Type: Progress Notes Filed: 11/13/2024 15:54 Note Text: INJECTION PROCEDURE NOTE: Patient returns today for right knee Gel-One injection. Prior to the procedure, the patient's allergies were reviewed. The procedure site was marked. The procedure team checked for proper functioning of devices and supplies to be used for the procedure. Large Joint Arthro/Inj: R knee joint 11/13/2024 3:54 PM The procedure site was prepped in the usual sterile fashion. Site: R knee joint Medications: 30 mg hyaluronate sod, cross-linked 30 mg/3 mL Outcome: Tolerated well, no immediate complications Post-injection instructions were reviewed with the patient and the patient voiced understanding of these instructions. Informed Consent Consent Obtained: Verbal Sarah Ann Protocol A moment to CARE was completed. SIGN IN Personnel directly involved with the procedure wore the appropriate PPE. Special Equipment: N/A Patient/Surrogate Stated/Verified: Patient name, Date of , Relevant allergies and Intended procedure TIME OUT Relevant labs, photos, and/or imaging studies have been reviewed. Intended patient and procedure match source documents. Consent obtained and matches the intended procedure. Correct side/site marked and visible. Medications required for procedure verified. Fire risk assessed and interventions discussed. No implant(s) inserted. SIGN OUT No specimen collected. All instruments, equipment, possible retained foreign bodies accounted for. The post-procedure POC has been communicated to the patient or surrogate. No post-procedure POC communication to the patient's multidisciplinary team (including the bedside nurse for hospitalized patients) applicable. Stewart Franks PA-C [facility] 11-13-2024 History of Present illness Narrative Associated Order(s): Large Joint Arthro/Inj: R knee joint Post-Procedure Diagnose(s): Primary osteoarthritis of right knee INJECTION PROCEDURE NOTE: Patient returns today for right knee Gel-One injection. Prior to the procedure, the patient's allergies were reviewed. The procedure site was marked. The procedure team checked for proper functioning of devices and supplies to be used for the procedure. Large Joint Arthro/Inj: R knee joint 11/13/2024 3:54 PM The procedure site was prepped in the usual sterile fashion. Site: R knee joint Medications: 30 mg hyaluronate sod, cross-linked 30 mg/3 mL Outcome: Tolerated well, no immediate complications Post-injection instructions were reviewed with the patient and the patient voiced understanding of these instructions. Informed Consent Consent Obtained: Verbal Sarah Ann Protocol A moment to CARE was completed. SIGN IN Personnel directly involved with the procedure wore the appropriate PPE. Special Equipment: N/A Patient/Surrogate Stated/Verified: Patient name, Date of , Relevant allergies and Intended procedure TIME OUT Relevant labs, photos, and/or imaging studies have been reviewed. Intended patient and procedure match source documents. Consent obtained and matches the intended procedure. Correct side/site marked and visible. Medications required for procedure verified. Fire risk assessed and interventions discussed. No implant(s) inserted. SIGN OUT No specimen collected. All instruments, equipment, possible retained foreign bodies accounted for. The post-procedure POC has been communicated to the patient or surrogate. No post-procedure POC communication to the patient's multidisciplinary team (including the bedside nurse for hospitalized patients) applicable. Stewart Franks PA-C documented in this encounter [facility] 11-11-2024 Procedure note [facility] 11-11-2024 Evaluation note Diagnosis Onset Date Resolution Mobitz type 2 second degree AV block acute November 11, 2024 1:01pm History of permanent cardiac pacemaker placement February 06, 2021 chronic November 11, 2024 1:01pm Leg swelling acute November 11 1:08pm Coronary-myocardial bridge chronic November 11, 2024 1:08pm Essential (primary) hypertension chronic November 11, 2024 1:08pm History of permanent cardiac pacemaker placement February 06, 2021 chronic November 11, 2024 1:08pm Hyperlipidemia chronic November 11, 2024 1:08pm Paroxysmal atrial fibrillation resolved November 11, 2024 1:08pm Diabetes chronic November 19 2:19pm Essential (primary) hypertension chronic November 19, 2024 2:19pm Hyperlipidemia chronic November 19, 2024 2:19pm Hypothyroidism chronic November 19, 2024 2:19pm Obesity chronic November 19 2:19pm Vitamin D deficiency chronic November 19, 2024 2:19pm [employer] Work Phone: 1(881) 534-487507-09-2025 Evaluation note* Diagnosis Onset Date Resolution Status Admit Date Mobitz type 2 second degree AV block acute November 11, 2024 1:01pm History of permanent cardiac pacemaker placement February 06, 2021 chronic Ju ly 2024 1:01pm Leg swelling acute November 11 1:08pm Coronary-myocardial bridge chronic November 11, 2024 1:08pm Essential (primary) hypertension chronic November 11, 2024 1:08pm History of permanent cardiac pacemaker placement February 06, 2021 chronic Ju ly 2024 1:08pm Hyperlipidemia chronic November 11, 2024 1:08pm Paroxysmal atrial fibrillation resolved November 11, 2024 1:08pm Diabetes chronic November 19 2:19pm Essential (primary) hypertension chronic November 19, 2024 2:19pm Hyperlipidemia chronic November 19, 2024 2:19pm Hypothyroidism chronic November 19, 2024 2:19pm Obesity chronic November 19 2:19pm Vitamin D deficiency chronic November 19, 2024 2:19pm Mobitz type 2 second degree AV block acute February 16 2:14pm Nonsustained monomorphic ventricular tachycardia acute February 16, 2025 2:14pm History of permanent cardiac pacemaker placement February 06, 2021 chronic Oc tober 2024 2:14pm [facility] Work Phone: 1(582) 845-863507-01-2025 Telephone encounter Note* Telephone Encounter - Yuridia Murcia RN - 11/03/2024 3:44 PM EDT Triage received outside medical records including ov notes and outside imaging. Copy placed on Dr Moreland's desk for review and copy sent for scanning. [facility]07-01-2025 Miscellaneous Notes* Telephone Encounter - Yuridia Murcia RN - 11/03/2024 3:44 PM EDT Triage received outside medical records including ov notes and outside imaging. Copy placed on Dr Moreland's desk for review and copy sent for scanning. [facility] Telephone encounter Note * Telephone Encounter - Sisi Whelan - 11/03/2024 12:13 PM EDT Patient is inquiring what questions that she should ask of the MS Provider in regards to the spinalcord stimulator. [facility]07-01-2025 Miscellaneous Notes* Telephone Encounter - Sisi Whelan - 11/03/2024 12:13 PM EDT Patient is inquiring what questions that she should ask of the MS Provider in regards to the spinalcord stimulator. documented in this [facility] History of Present illness Narrative* Randy Stephen, RT(R) - 10/22/2024 2:45 PM EDT Radiology Service Progress Note PATIENT NAME: Kvng Landry DATE OF SERVICE: October 22, 2024 TIME: 2:38 PM PATIENT IDENTITY VERIFICATION COMPLETED USING TWO (2) IDENTIFIERS: Name and Date of confirmedby patient verbally and Name and Date of confirmed by identification band. FALL SCREENING: Has the patient had 2 falls in the last year or 1 fall with injury or currently using an Ambulatory Assistive Device (Walker, Cane, Wheelchair, Crutches, etc.)? No PATIENT GENDER DATA: Assigned female at . status: : No status:NO. PATIENT RELEVANT IMPLANT DATA REVIEWED: Yes PATIENT PRESENTS WITH AN IMPLANTABLE OR ATTACHED ELEVATOR SUPERVISOR: No RADIOLOGY DEPARTMENT: General X-ray: Exam(s) Completed: Pelvis X-Ray: sacroiliac joints Lower Extremity X-Ray(s): Feet, Bilateral Upper Extremity X-Ray(s): Hand, bilateral PERIPHERAL IV DATA: Not applicable SIGNED BY: RT Tadeo(Kelvin) October 22, 2024 2:38 PM documented in this encounterK[facility]-2025 NoteHNO ID: [id number] Author: RANDY STEPHEN RT(R) Service: Radiology Author Type: Technologist Type: Progress Notes Filed: 10/22/2024 14:38 Note Text: Radiology Service Progress Note PATIENT NAME: Kvng Landry DATE OF SERVICE: October 22, 2024 TIME: 2:38 PM PATIENT IDENTITY VERIFICATION COMPLETED USING TWO (2) IDENTIFIERS: Name and Date of confirmed by patient verbally and Name and Date of confirmed by identification band. FALL SCREENING: Has the patient had 2 falls in the last year or 1 fall with injury or currently using an Ambulatory Assistive Device (Walker, Cane, Wheelchair, Crutches, etc.)? No PATIENT GENDER DATA: Assigned female at . status: : No status: NO. PATIENT RELEVANT IMPLANT DATA REVIEWED: Yes PATIENT PRESENTS WITH AN IMPLANTABLE OR ATTACHED ELEVATOR SUPERVISOR: No RADIOLOGY DEPARTMENT: General X-ray: Exam(s) Completed: Pelvis X-Ray: sacroiliac joints Lower Extremity X-Ray(s): Feet, Bilateral Upper Extremity X-Ray(s): Hand, bilateral PERIPHERAL IV DATA: Not applicable SIGNED BY: NEHEMIAH Piedra) October 22, 2024 2:38 [facility]06-19-2025 Instructions* Patient Instructions* Dyana Moran MD - 10/22/2024 2:07 PM EDT Patient education: Dry eye (The Basics) Written by the doctors and editors at [facility] What is dry eye? -- Dry eye happens when your eyes either do not make enough tears or the tears that they make evaporate (go away) too quickly. This causes your eyes to feel dry and irritated. The medical term for dry eye is keratoconjunctivitis sicca. What causes dry eye? -- Many people have dry eye, including about one-third of older adults. A few people with dry eye might have another disease, such as Sj gren's syndrome, diabetes, or Parkinson disease. Some medicines can cause dry eye symptoms or make them worse. What are the symptoms of dry eye? -- People have different symptoms but the most common ones are eyes that: ?Feel dry or burn ?Look red Other symptoms can include: ?Being bothered by light ?Feeling like something is in your eyes ?Blurry vision ?Watery eyes ?Discomfort wearing contact lenses In some people the symptoms are worse when it is cold or windy or if they are in a dry environment. Should I see a doctor or nurse? -- Yes. If your eye stays red, irritated, or painful for several days, you should see your doctor or nurse. Will I need tests? -- Probably not. The doctor or nurse should be able to tell if you have dry eye by learning about your symptoms and doing an exam. How is dry eye treated? -- "Artificial tears" are the main treatment for dry eye. They can keep theeye moist and help with the symptoms of dry eye. You can buy artificial tears at the drug store or grocery store without a prescription. They come in liquid, gel, or ointments. Your doctor or nurse will help you decide which form is best for you. It is usually best to avoid eye drops that are meantto reduce redness. Artificial tears help with the symptoms of dry eye, but they do not cure the condition. They work only as long as you keep using them. Other things you can do to help improve your symptoms are: ?Try to blink a lot, especially when you are reading or using the computer. This helps keep your eye moist. ?Avoid excess air conditioning or heating as much as you can. Also avoid sitting directly in the flow of the cold or hot air. ?Use a humidifier in your bedroom and any other space where you spend a lot of time. ?Avoid smoke and smoky air ?Wear protective eyewear when you are outside. Glasses that cover more of your face, or have special johnson on the sides, can protect your eyes from wind and dry air. Over the counter artificial eye drops like Genteal/Systane can be helpful. If your dry eye does not get better in 3 to 4 weeks, your doctor or nurse might send you to see an eye doctor (called an "space scheduler"). The eye doctor can do more tests and might suggest other treatments. These include prescription eye drops (like Restasis) or ointments, special glasses or goggles, oral medicines (pills), or surgery. This topic retrieved from [employer] on: Jul 25, 2017. We discussed your symptoms and medical history: - You have a history of MS and are currently on Vumerity for treatment. You also have a history of thyroid disease, diabetes, and osteoarthritis in your right knee. - Your symptoms include swelling and stiffness in your hands, feet, and ankles, particularly in themornings and evenings, as well as dry eyes, dry mouth, hair loss, and overall body aches. You also reported vision changes, fatigue, and difficulty sleeping. - Your symptoms may be related to a combination of MS, osteoarthritis, and possibly fibromyalgia. Fibromyalgia is a condition that can cause widespread pain, fatigue, and sensitivity to touch, and itis often influenced by stress, sleep, and other factors. We discussed your care plan: - I will order blood tests and x-rays today to evaluate for any signs of autoimmune disease, such as rheumatoid arthritis or lupus. Based on the results, we can decide if further imaging, such as an ultrasound of your hands, is needed to check for inflammation. - If autoimmune disease is ruled out, your symptoms may be attributed to fibromyalgia. Fibromyalgiais not an autoimmune condition, but there are medications that can help manage the pain, such as Cymbalta, Lyrica, or other alternatives to gabapentin. If gabapentin is not helping, your pain management provider may consider switching to a different medication. - For your dry eyes, continue using Sustane eye drops as needed. For dry mouth, you can try ubqb-mxk-wptgoru biotin products, such as mouthwashes or sprays, to help with lubrication. If these do not provide relief, there are prescription medications like Evoxac or Salagen that can stimulate saliva production. - For hair loss, you may try zukm-jkm-aymjkkc biotin vitamins, which can support hair, skin, and nail health. - Your MS treatment remains a priority. If your MS doctor recommends IV therapy, they can reach outto us for further discussion. However, MS treatments are unlikely to address your arthritic symptoms. We discussed lifestyle factors: - Stress, poor sleep, and other medical conditions can contribute to your symptoms. Improving sleepquality, managing stress, and maintaining regular movement or exercise may help reduce your symptoms over time. Next steps: - Please complete the blood tests and x-rays today. The orders have been sent to the lab. - We will review your test results in a few weeks to determine the next steps in your care. - If you have any new or worsening symptoms, please contact our office. Let us know if you have any questions or concerns. documented in this encounterK[facility]25 NoteHNO ID: [id number] Author: DYANA MORAN MD Service: ? Author Type: Physician Type: Progress Notes Filed: 10/22/2024 16:30 Note Text: RHEUMATOLOGY NEW PATIENT NOTE REFERRING PHYSICIAN: CHIEF COMPLAINT: Patient presents with: Joint Pain New Patient HPI: Kvng Landry is a 54-year-old female with a history of MS, diabetes, and thyroid disease, presenting with joint pain and swelling. Kvng reports severe arthritis in the right knee and has undergone lower back surgery, which did not alleviate symptoms. She experiences significant swelling and stiffness in her hands, ankles, and feet, particularly in the mornings and after periods of inactivity. The stiffness improves somewhat with movement and hydration in the morning but worsens by the end of the day due to fatigue. She describes the sensation as feeling "bloated" and "crunchy," with difficulty bending and gripping. She also notes stiffness and a "crunchy" sensation in her neck, along with dry eyes and mouth. She has been using Systane eye drops frequently over the past six months due to dryness and itching. She denies any sores in the mouth or nose. Kvng reports hair loss despite normal thyroid function tests and is taking multivitamins but has not tried biotin. She has gained approximately 21 pounds, attributing this to decreased activity following back surgery and frequent falls. She denies any recent changes in weight unrelated to these factors. She experiences paresthesia in her hands and feet, noting an inability to feel her baby toes since 2017. She reports some cephalalgia and vision changes, including tired and dry eyes, but denies double or blurry vision. She experiences a prickly sensation in the sun but denies any rashes that last several days. She reports dry patches on her skin but denies any significant rashes. She notes that her fingertips change color in cold weather, turning blue, white, and red. Kvng has a confirmed diagnosis of MS and is currently on Vumerity. She has a history of positive ROBBI and low-level positive rheumatoid factor but reports that hydroxychloroquine worsened her symptoms when taken twice for a couple of months each time. She denies any history of psoriasis and is unsure of her family history due to being adopted. She reports anxiety and depression, as well as poor sleep, averaging about five hours per night. She is currently taking tizanidine, which helps with sleep, and gabapentin, which she feels is not effective. She denies any gastrointestinal issues such as nausea, diarrhea, or blood in stool but notes that her medications sometimes upset her stomach. Kvng had a pacemaker placed in 2020, which was redone last year. She is currently seeing a new MS doctor and a psychiatrist and is considering a spinal cord stimulator. Smoking status: Tobacco Use: Types: Cigarettes All REVIEW OF SYSTEMS: as noted in HPI Otherwise negative 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HCC) Depression Diabetes mellitus, type 2 (HCC) DVT, lower extremity (HCC) Essential hypertension History of myocardial infarction due to atherothrombotic coronary artery disease Hypothyroidism Malfunction of electrode lead of cardiac pacemaker atrial lead Mixed hyperlipidemia MS (multiple sclerosis) (HCC) Multiple sclerosis (HCC) Presence of cardiac pacemaker [employer] dual-chamber MRI conditional pacemaker system implanted 02/06/2021 for second degree AV block; system extracted (removed) 09/11/2023 due to lead malfunction; new Medtronic dual-chamber pacemaker system reimplanted (system will be MRI conditional after 6 weeks post implant) PVC (premature ventricular contraction) RA (rheumatoid arthritis) (HCC) 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 Baer on 09/11/2023. Systemic lupus erythematosus (HCC) PAST SURGICAL HISTORY Procedure Laterality Date BASIC PACEMAKER DUAL CHAMBER Left 02/06/2021 [employer] dual-chamber MRI conditional pacemaker system implanted for second degree AV block BASIC PACEMAKER DUAL CHAMBER Left 09/11/2023 Medtronic dual-chamber pacemaker system implant; RV septal lead, paced QRS duration 108 ms; system will be MRI conditional after 6 weeks post implant; [facility] Dr. Baer ECHOCARDIOGRAM 08/02/2023 [facility]; see scanned documents LAPAROSCOPY SURG CHOLECYSTECTOMY Cholecystectomy, lap NEUROPLASTY AND/TRANSPOS MEDIAN NRV CAR (more content not included)...[facility]06-19-2025 History of Present illness Narrative* Dyana Moran MD - 10/22/2024 1:48 PM EDT RHEUMATOLOGY NEW PATIENT NOTE REFERRING PHYSICIAN: CHIEF COMPLAINT: Patient presents with: Joint Pain New Patient HPI: Kvng Landry is a 54-year-old female with a history of MS, diabetes, and thyroid disease, presenting with joint pain and swelling. Kvng reports severe arthritis in the right knee and has undergone lower back surgery, which did not alleviate symptoms. She experiences significant swelling and stiffness in her hands, ankles, andfeet, particularly in the mornings and after periods of inactivity. The stiffness improves somewhatwith movement and hydration in the morning but worsens by the end of the day due to fatigue. She describes the sensation as feeling "bloated" and "crunchy," with difficulty bending and gripping. She also notes stiffness and a "crunchy" sensation in her neck, along with dry eyes and mouth. She has been using Systane eye drops frequently over the past six months due to dryness and itching. Shedenies any sores in the mouth or nose. Kvng reports hair loss despite normal thyroid function tests and is taking multivitamins but hasnot tried biotin. She has gained approximately 21 pounds, attributing this to decreased activity following back surgery and frequent falls. She denies any recent changes in weight unrelated to these factors. She experiences paresthesia in her hands and feet, noting an inability to feel her baby toes since 2017. She reports some cephalalgia and vision changes, including tired and dry eyes, but denies double or blurry vision. She experiences a prickly sensation in the sun but denies any rashes that last several days. She reports dry patches on her skin but denies any significant rashes. She notes that her fingertips change color in cold weather, turning blue, white, and red. Kvng has a confirmed diagnosis of MS and is currently on Vumerity. She has a history of positiveANA and low-level positive rheumatoid factor but reports that hydroxychloroquine worsened her symptoms when taken twice for a couple of months each time. She denies any history of psoriasis and is unsure of her family history due to being adopted. She reports anxiety and depression, as well as poor sleep, averaging about five hours per night. She is currently taking tizanidine, which helps with sleep, and gabapentin, which she feels is not effective. She denies any gastrointestinal issues such as nausea, diarrhea, or blood in stool but notesthat her medications sometimes upset her stomach. Kvng had a pacemaker placed in 2020, which was redone last year. She is currently seeing a new MS doctor and a psychiatrist and is considering a spinal cord stimulator. Smoking status: Tobacco Use: Types: Cigarettes All REVIEW OF SYSTEMS: as noted in HPI Otherwise negative 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HCC) Depression Diabetes mellitus, type 2 (HCC) DVT, lower extremity (HCC) Essential hypertension History of myocardial infarction due to atherothrombotic coronary artery disease Hypothyroidism Malfunction of electrode lead of cardiac pacemaker atrial lead Mixed hyperlipidemia MS (multiple sclerosis) (HCC) Multiple sclerosis (HCC) Presence of cardiac pacemaker [employer] dual-chamber MRI conditional pacemaker system implanted 02/06/2021 for second degree AV block; system extracted (removed) 09/11/2023 due to lead malfunction; new Medtronic dual-chamber pacemaker system reimplanted (system will be MRI conditional after 6 weeks post implant) PVC (premature ventricular contraction) RA (rheumatoid arthritis) ([facility]) 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 Baer on 09/11/2023. Systemic lupus erythematosus (HCC) PAST SURGICAL HISTORY Procedure Laterality Date BASIC PACEMAKER DUAL CHAMBER Left 02/06/2021 [employer] dual-chamber MRI conditional pacemaker system implanted for second degree AV block BASIC PACEMAKER DUAL CHAMBER Left 09/11/2023 [employer] dual-chamber pacemaker system implant; RV septal lead, paced QRS duration 108 ms; system will be MRI conditional after 6 weeks post implant; [facility]AG Dr. Baer ECHOCARDIOGRAM 08/02/2023 [facility]; see scanned documents LAPAROSCOPY SURG CHOLECYSTECTOMY Cholecystectomy, lap NEUROPLASTY &/TRANSPOS MEDIAN NRV CARPAL TUNNE Carpal tunnel decomp PACEMAKER - REMOVAL/REPOSITION LEAD DUAL Left 09/11/2023 [employer] dual-chamber pacemaker system extraction (removal); CCAG Dr. Baer PAST SURGICAL HISTORY OF uterine ablation TONSILLECTOMY PRIMARY/SECONDARY <AGE 12 Tonsillectomy TOTAL ABDOMINAL HYSTERECT W/WO RMVL TUBE OVARY Hysterectomy, SHADY Current Outpatient Medications Medication Sig predniSONE (DELTASONE) 10 mg tablet Take 1 tablet by mouth three times a day for 3 days, THEN 1 tablet two times a day for 3 days, THEN 1 tablet once daily for 3 days. celecoxib (CELEBREX) 200 mg capsule Take 1 capsule by mouth two times a day. lidocaine (SALONPAS) 4 % patch APPLY ONE PATCH AT NIGHT AND LEAVE ON FOR 12 HOURS THEN REMOVE DURING THE DAY sertraline (ZOLOFT) 50 mg tablet 100 mg. carvedilol (COREG) 25 mg tablet Take by mouth once daily. FREESTYLE LUIS MIGUEL 3 SENSOR wilbur CHANGE SENSOR EVERY 14 DAYS cholecalciferol, Vitamin D3, (VITAMIN D3) 1,250 mcg (50,000 unit) cap capsule Take 1 capsule by mouth one time a week. TRUE METRIX GLUCOSE TEST STRIP test strip use 1 TEST STRIP to TEST BLOOD SUGAR four times a day TRUE METRIX GLUCOSE METER as directed. TRUEPLUS LANCETS 30 gauge use 1 LANCET to TEST BLOOD SUGAR four times a day cholecalciferol (VITAMIN D3) 50 mcg (2,000 unit) tablet Take 2,000 Units by mouth every afternoon. tiZANidine (ZANAFLEX) 4 mg tablet Take 4 mg by mouth daily at bedtime. levothyroxine (SYNTHROID) 150 mcg tablet Take 1 tablet by mouth every afternoon. insulin lispro (HUMALOG KWIKPEN) 100 unit/mL 12 UNITS SQ TID, using 14 UNITS SQ TID while on steroids aspirin, enteric coated (ASPIRIN, ENTERIC COATED) 81 mg EC tablet Take 81 mg by mouth once daily. Gdwxviuzttqrh-Apyfbteq-Fjxrtn (MULTIVITAMIN 50 PLUS) tab Take 1 tablet by mouth once daily. diroximel fumarate (VUMERITY) 231 mg capsule, delayed release Take 462 mg by mouth two times a day. hydroCHLOROthiazide 25 mg tablet Take 12.5 mg by mouth once daily. rosuvastatin (CRESTOR) 5 mg tablet Take 5 mg by mouth once daily. insulin glargine (LANTUS SOLOSTAR U-100 INSULIN) 100 unit/mL (3 mL) Inject 32 Units subcutaneously every morning. gabapentin (NEURONTIN) 600 mg tablet Take 600 mg by mouth three times a day. losartan (COZAAR) 50 mg tablet Take 50 mg by mouth two times a day. acetaminophen (TYLENOL) 500 mg tablet Take 1 tablet by mouth every 6 hours as needed. omega-3 fatty acids/fish oil (FISH OIL-OMEGA-3 FATTY ACIDS) 300-1,000 mg cap Take by mouth. (Patient not taking: Reported on 10/22/2024) Ascorbic Acid (VITAMIN C) 1,000 mg tablet Take 1,000 mg by mouth once daily. (Patient not taking: Reported on 10/22/2024) No current facility-administered medications for this visit. ALLERGIES Allergen Reactions Codeine Anaphylaxis, Other: See Comments Erythromycin Rash, Swelling Toradol [Ketorolac] Itching Given with Vicodin at the time of the reaction. Vicodin [Hydrocodon* Itching Given with Toradol at the time of the reaction. Amlodipine Other: See Comments Cefdinir Other: See Comments Copaxone [Glatirame* Shortness of Breath Hydrocodone Other: See Comments Jardiance [Empaglif* Other: See Comments Chronic yeast infection Penicillins Hives FAMILY HISTORY Adopted: Yes Problem Relation Age of Onset No Known Problems Mother adopted, but knows some medical facts about mother other (other) Father adopted, does not know anything about father Breast Cancer Maternal Grandmother Alcohol abuse Maternal Grandfather Social History Tobacco Use Smoking status: Former Current packs/day: 0.00 Average packs/day: 0.3 packs/day for 1.5 years (0.4 ttl pk-yrs) Types: Cigarettes Start date: 02/24/2000 Quit date: 2001 Years since quittin.1 Smokeless tobacco: Never Vaping Use Vaping status: Never Used Substance Use Topics Alcohol use: Yes Comment: few times per week Drug use: No Occupation: Employer And Job Title: None on file Years Of Education Completed: Not specified Marital Status: History Review: I have reviewed and modified as needed, the following during this visit: Allergies,Past Medical History, Past Surgical History, Past Family History, Past Social History. BP 129/85 Pulse 67 Temp 36.3 C (97.3 F) (Temporal) Resp 12 Ht 154.9 cm (5' 1") Wt 111.1 kg (245 lb) LMP 08/08/2006 SpO2 96% BMI 46.29 kg/m Physical Exam Constitutional: - Appearance: Normal appearance. No acute distress. HENT: - Head: Atraumatic. - Eyes: - Extraocular Movements: Extraocular movements intact. - Conjunctiva/sclera: Conjunctivae normal. - Pupils: Pupils are equal, round, and reactive to light. Cardiovascular: - Rate and Rhythm: Normal rate and regular rhythm. - Pulses: Normal pulses. - Heart sounds: Normal heart sounds. Pulmonary: - Breath sounds: Normal breath sounds. Musculoskeletal: - Cervical back: Normal range of motion. 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 Neurological: - General: No focal deficit present. Psychiatric: - Mood and Affect: Mood normal. - Behavior: Behavior normal. Summary of old labs/radiology: Review/request of outside labs and imaging: Pertinent labs: Glucose 153 07/27/2024 WBC 9.10 07/27/2024 Hemoglobin 13.1 07/27/2024 Platelet Count 265 07/27/2024 Serology: Pertinent imaging: IMPRESSION: Moderately advanced osteoarthritis with severe medial joint compartment narrowing and tricompartmental osteophytosis. No acute fracture or dislocation. No other significant abnormality. Assessment and Plan # Pain in joint, multiple sites (M25.50) Experiencing joint pain in hands, feet, ankles, and neck. No signs of synovitis or inflammation inside the joints on examination. Pain is more muscular and around the joints. - Ordered x-rays to further evaluate joint pain. - Discussed possibility of fibromyalgia contributing to pain. # Vitamin D deficiency (E55.9) # ROBBI positive (R76.8) # Elevated rheumatoid factor (R76.8) Previous tests showed positive ROBBI and low-level positive rheumatoid factor. Further testing for lupus and rheumatoid arthritis was negative. Positive ROBBI and rheumatoid factor can be false positivesand are non-specific. - Ordered repeat labs to reassess ROBBI and rheumatoid factor levels. - Consider ultrasound of hands to look for inflammation if lab results are inconclusive. # Fibromyalgia (M79.7) Symptoms and examination findings are concerning for fibromyalgia, including widespread tenderness and pain in muscles and around joints. - Discussed potential treatment options including medications like Cymbalta, Lyrica, and gabapentin. - Advised patient to follow up with primary care or pain management for fibromyalgia treatment. # Malaise and fatigue (R53.81) Experiencing fatigue, likely multifactorial due to MS, thyroid disease, diabetes, and medication side effects. - Monitor and manage underlying conditions contributing to fatigue. # Multiple sclerosis (HCC) (G35) Confirmed diagnosis of MS, currently on Vumerity. Symptoms overlap with autoimmune conditions, making diagnosis challenging. - Continue Vumerity. - Discussed potential benefits of MS IV therapy; patient to consult with MS specialist. # Primary osteoarthritis of right knee (M17.11) Severe osteoarthritis in the right knee confirmed by previous x-rays. - Continue current management for osteoarthritis. # Presence of cardiac pacemaker (Z95.0) Pacemaker implanted in 2020 and revised last year. # Dry eye syndrome of both eyes (H04.123) Experiencing dry eyes, using Systane eye drops. Dryness may be related to medications and underlying conditions. - Continue using Systane eye drops. - Provided handouts on lubrication options. # Raynaud's disease without gangrene (I73.00) Fingertips change color in cold weather, consistent with Raynaud's disease. Office Visit on 10/22/24 XR HAND GENERAL 3V PA/LAT/OBL LEFT XR HAND GENERAL 3V PA/LAT/OBL RIGHT XR FOOT GENERAL 3V AP/LAT/OBL LEFT XR FOOT GENERAL 3V AP/LAT/OBL RIGHT XR SACROILIAC JOINTS 2V AP PELVIS/FERGUESON ROBBI BY IFA SCREEN CRITHIDIA LUCILIAE DNA ANTIBODY DS BLD RESEARCH ARCHAEOLOGIST ANTIBODY BLOOD RICHARSD IGG AB SJOGREN ABS SSA/SSB RHEUMATOID FACTOR CCP ANTIBODY IGG CREATINE KINASE/CK COMPLETE BLOOD COUNT AND DIFFERENTIAL COMPREHENSIVE METABOLIC PANEL VITAMIN D 25 HYDROXY URINALYSIS (WITH MICROSCOPIC) WITH CULTURE IF INDICATED CREATININE RANDOM URINE PROTEIN RANDOM URINE No orders of the defined types were placed in this encounter. Dyana Moran MD I spent a total of 40 minutes on the date of the service which included preparing to see the patient, [id number] patient care, completing clinical documentation, obtaining and/or reviewing separately obtained history, performing a medically appropriate examination, counseling and educating the pat ient/family/caregiver, ordering medications, tests, or procedures, independently interpreting results (not separately reported), and communicating results to the patient/family/caregiver. Recording using [employer] software for draft documentation of the visit was discussed with the patient/authorized product sales representative; all questions welcomed and answered. Patient/authorized product sales representative agreed to proceed documented in this encounterK[facility] NoteHNO ID: [id number] Author: STEWART FRANKS PA-C Service: ? Author Type: Physician Home Care Rn Type: Progress Notes Filed: 10/16/2024 16:04 Note Text: HISTORY OF PRESENT ILLNESS: Kvng is a 54 year old female. She is here for follow up of Right knee pain. Patient had [place] in [place] showing cullen's cyst. Spine doctor told her to follow up with me for this. Unfortunately patient had 2-3 days of relief from cortisone injection. Continues to [place] with pain. She is looking to lose weight in hopes of TKA surgery. PAIN EVALUATION 10/15/2024 0918 10/16/2024 1525 Pain Level: -- 7 Pain Location: Knee-Right Knee-Right Description: Burning;Crushing;Pressure;Radiating;Raw;Sharp;Shooting;Stabbing;Stiffness;Throbb ing;Tightness Aching;Sharp;Dull Duration Amount of Time: 20 -- ongoing Duration Units: Hours -- Frequency: Continuous Continuous Intervention/Comfort measure: Medication;Reposition;Cold;Positioning Medication;Reposition;Relaxation Comments: It hurts almost nonstop. Standing is worse and walking. Certain meds are not doing anything -- MEDICATIONS Current Outpatient Medications on File Prior to Visit Medication Sig diclofenac, EC, (VOLTAREN) 75 mg EC tablet Take 1 tablet by mouth two times a day. for pain. lidocaine (SALONPAS) 4 % patch APPLY ONE PATCH AT NIGHT AND LEAVE ON FOR 12 HOURS THEN REMOVE DURING THE DAY sertraline (ZOLOFT) 50 mg tablet 1 tablet every day by oral route. carvedilol (COREG) 25 mg tablet Take by mouth once daily. FREESTYLE LUIS MIGUEL 3 SENSOR wilbur CHANGE SENSOR EVERY 14 DAYS cholecalciferol, Vitamin D3, (VITAMIN D3) 1,250 mcg (50,000 unit) cap capsule Take 1 capsule by mouth one time a week. TRUE METRIX GLUCOSE TEST STRIP test strip use 1 TEST STRIP to TEST BLOOD SUGAR four times a day TRUE METRIX GLUCOSE METER as directed. TRUEPLUS LANCETS 30 gauge use 1 LANCET to TEST BLOOD SUGAR four times a day cholecalciferol (VITAMIN D3) 1,000 unit tab tablet Take 1 tablet by mouth every afternoon. tiZANidine (ZANAFLEX) 4 mg tablet Take 4 mg by mouth daily at bedtime. levothyroxine (SYNTHROID) 150 mcg tablet Take 1 tablet by mouth every afternoon. insulin lispro (HUMALOG KWIKPEN) 100 unit/mL inject 10 units subcutaneously three times a day aspirin, enteric coated (ASPIRIN, ENTERIC COATED) 81 mg EC tablet Take 81 mg by mouth once daily. omega-3 fatty acids/fish oil (FISH OIL-OMEGA-3 FATTY ACIDS) 300-1,000 mg cap Take by mouth. Gjhrylpqalnyl-Ribzdybw-Fzasfj (MULTIVITAMIN 50 PLUS) tab Take 1 tablet by mouth once daily. Ascorbic Acid (VITAMIN C) 1,000 mg tablet Take 1,000 mg by mouth once daily. diroximel fumarate (VUMERITY) 231 mg capsule, delayed release Take 462 mg by mouth two times a day. hydroCHLOROthiazide 25 mg tablet Take 12.5 mg by mouth once daily. rosuvastatin (CRESTOR) 5 mg tablet Take 5 mg by mouth once daily. insulin glargine (LANTUS SOLOSTAR U-100 INSULIN) 100 unit/mL (3 mL) Inject 32 Units subcutaneously every morning. gabapentin (NEURONTIN) 300 mg capsule Take 600 mg by mouth two times a day. losartan (COZAAR) 50 mg tablet Take 50 mg by mouth two times a day. acetaminophen (TYLENOL) 500 mg tablet Take 1 tablet by mouth every 6 hours as needed. No current facility-administered medications on file prior to visit. ALLERGIES ALLERGIES Allergen Reactions Codeine Anaphylaxis, Other: See Comments Erythromycin Rash, Swelling Toradol [Ketorolac] Itching Given with Vicodin at the time of the reaction. Vicodin [Hydrocodon* Itching Given with Toradol at the time of the reaction. Amlodipine Other: See Comments Cefdinir Other: See Comments Copaxone [Glatirame* Shortness of Breath Hydrocodone Other: See Comments Jardiance [Empaglif* Other: See Comments Chronic yeast infection Penicillins Hives PHYSICAL EXAM: PE: All other systems deferred. GENERAL: Appears healthy, well-nourished, no deformities. HABITUS: Morbidly obese Gait: Antalgic to the right Right: Alignment: Varus deformity, Correctable Range of motion is 0 degrees in extension and 110 degrees of flexion. Extension La degrees Pain with ROM: Yes Effusion: Mild Tender to the palpation of Posterior Knee, Medial femoral condyle, and Medial joint line Pain with patellar compression: Yes Stability: Anterior/Posterior stable and Varus/Valgus stable Hip Exam: flexion to 100+ degrees, full extension, internal/external rotation adequate, and no pain with log roll Neurovascular Status: Sensation Intact, Moves foot and ankle up AND down, and 2+ dorsalis pedis Strength: 5 Skin: Normal RADIOGRAPHS (personally reviewed): advanced right knee OA MRI: none DIAGNOSIS Encounter Diagnosis ICD-10-CM 1. Primary osteoarthritis of right knee M17.11 ENDOCRINE MEDICAL WEIGHT MANAGEMENT 2. BMI 45.0-49.9, adult (HCC) Z68.42 ENDOCRINE MEDICAL WEIGHT MANAGEMENT PLAN Will get her prednisone taper to settle down pain and cyst. Gel injection is (more content not included)...[facility]06-13-2025 History of Present illness Narrative* Stewart Franks PA-C - 10/16/2024 3:32 PM EDT Images from the original note were not included. HISTORY OF PRESENT ILLNESS: Kvng is a 54 year old female. She is here for follow up of Right knee pain. Patient had [place] in [place] cullen's cyst. Spine doctor told her to follow up with me for this. Unfortunately patient had 2-3 days of relief from cortisone injection. Continues to [place] with pain. She is looking tolose weight in hopes of TKA surgery. PAIN EVALUATION 10/15/2024 0918 10/16/2024 1525 Pain Level: -- 7 Pain Location: Knee-Right Knee-Right Description: Burning;Crushing;Pressure;Radiating;Raw;Sharp;Shooting;Stabbing;Stiffness;Throbb ing;Tightness Aching;Sharp;Dull Duration Amount of Time: 20 -- ongoing Duration Units: Hours -- Frequency: Continuous Continuous Intervention/Comfort measure: Medication;Reposition;Cold;Positioning Medication;Reposition;Relaxation Comments: It hurts almost nonstop. Standing is worse and walking. Certain meds are not doing anything -- MEDICATIONS Current Outpatient Medications on File Prior to Visit Medication Sig diclofenac, EC, (VOLTAREN) 75 mg EC tablet Take 1 tablet by mouth two times a day. for pain. lidocaine (SALONPAS) 4 % patch APPLY ONE PATCH AT NIGHT AND LEAVE ON FOR 12 HOURS THEN REMOVE DURING THE DAY sertraline (ZOLOFT) 50 mg tablet 1 tablet every day by oral route. carvedilol (COREG) 25 mg tablet Take by mouth once daily. FREESTYLE LUIS MIGUEL 3 SENSOR wilbur CHANGE SENSOR EVERY 14 DAYS cholecalciferol, Vitamin D3, (VITAMIN D3) 1,250 mcg (50,000 unit) cap capsule Take 1 capsule by mouth one time a week. TRUE METRIX GLUCOSE TEST STRIP test strip use 1 TEST STRIP to TEST BLOOD SUGAR four times a day TRUE METRIX GLUCOSE METER as directed. TRUEPLUS LANCETS 30 gauge use 1 LANCET to TEST BLOOD SUGAR four times a day cholecalciferol (VITAMIN D3) 1,000 unit tab tablet Take 1 tablet by mouth every afternoon. tiZANidine (ZANAFLEX) 4 mg tablet Take 4 mg by mouth daily at bedtime. levothyroxine (SYNTHROID) 150 mcg tablet Take 1 tablet by mouth every afternoon. insulin lispro (HUMALOG KWIKPEN) 100 unit/mL inject 10 units subcutaneously three times a day aspirin, enteric coated (ASPIRIN, ENTERIC COATED) 81 mg EC tablet Take 81 mg by mouth once daily. omega-3 fatty acids/fish oil (FISH OIL-OMEGA-3 FATTY ACIDS) 300-1,000 mg cap Take by mouth. Heqprjayzqfrh-Idudtarm-Thnzid (MULTIVITAMIN 50 PLUS) tab Take 1 tablet by mouth once daily. Ascorbic Acid (VITAMIN C) 1,000 mg tablet Take 1,000 mg by mouth once daily. diroximel fumarate (VUMERITY) 231 mg capsule, delayed release Take 462 mg by mouth two times a day. hydroCHLOROthiazide 25 mg tablet Take 12.5 mg by mouth once daily. rosuvastatin (CRESTOR) 5 mg tablet Take 5 mg by mouth once daily. insulin glargine (LANTUS SOLOSTAR U-100 INSULIN) 100 unit/mL (3 mL) Inject 32 Units subcutaneously every morning. gabapentin (NEURONTIN) 300 mg capsule Take 600 mg by mouth two times a day. losartan (COZAAR) 50 mg tablet Take 50 mg by mouth two times a day. acetaminophen (TYLENOL) 500 mg tablet Take 1 tablet by mouth every 6 hours as needed. No current facility-administered medications on file prior to visit. ALLERGIES ALLERGIES Allergen Reactions Codeine Anaphylaxis, Other: See Comments Erythromycin Rash, Swelling Toradol [Ketorolac] Itching Given with Vicodin at the time of the reaction. Vicodin [Hydrocodon* Itching Given with Toradol at the time of the reaction. Amlodipine Other: See Comments Cefdinir Other: See Comments Copaxone [Glatirame* Shortness of Breath Hydrocodone Other: See Comments Jardiance [Empaglif* Other: See Comments Chronic yeast infection Penicillins Hives PHYSICAL EXAM: PE: All other systems deferred. GENERAL: Appears healthy, well-nourished, no deformities. HABITUS: Morbidly obese Gait: Antalgic to the right Right: Alignment: Varus deformity, Correctable Range of motion is 0 degrees in extension and 110 degrees of flexion. Extension La degrees Pain with ROM: Yes Effusion: Mild Tender to the palpation of Posterior Knee, Medial femoral condyle, and Medial joint line Pain with patellar compression: Yes Stability: Anterior/Posterior stable and Varus/Valgus stable Hip Exam: flexion to 100+ degrees, full extension, internal/external rotation adequate, and no painwith log roll Neurovascular Status: Sensation Intact, Moves foot and ankle up & down, and 2+ dorsalis pedis Strength: 5 Skin: Normal RADIOGRAPHS (personally reviewed): advanced right knee OA MRI: none DIAGNOSIS Encounter Diagnosis ICD-10-CM 1. Primary osteoarthritis of right knee M17.11 ENDOCRINE MEDICAL WEIGHT MANAGEMENT 2. BMI 45.0-49.9, adult (HCC) Z68.42 ENDOCRINE MEDICAL WEIGHT MANAGEMENT PLAN Will get her prednisone taper to settle down pain and cyst. Gel injection is still pending. GET [employer] program was consulted for weight loss. Follow up for gel once approved. I spent a total of approximately 15 minutes on the date of the service which included preparing to see the patient, [id number]-[id number] patient care, completing clinical documentation, obtaining and/or reviewing separately obtained history, performing a medically appropriate examination, counseling and educating the patient/family/caregiver, and care coordination (not separately reported). PROCEDURE: Procedures Stewart Franks PA-C documented in this encounterK[facility]06-10-2025 Instructions* Patient Instructions* Ayaan Moreland MD - 10/13/2024 9:16 AM EDT We discussed your chronic low back pain and associated symptoms: - Your pain radiates to your thighs, shins, and toes, with numbness in some toes, particularly on the right side. You also experience heaviness and weakness in your legs, which has led to falls. - You have a history of back surgery (laminotomy with decompression) in August, which did not provide relief. You have also tried physical therapy and spinal injections in the past with limited success. - We discussed the possibility of a spinal cord stimulator to help manage your pain. Before proceeding, you will need: - An evaluation with a neurologist to assess the status of your multiple sclerosis (MS) and ensure it is well-controlled. Dr. Temple referred you to Dr. Korin Louis for this. Please call to schedule this appointment. - A psychological evaluation with Dr. Lyndsey Emery, a pain psychologist, to ensure you are a good candidate for the stimulator. You can schedule this appointment today. - I will see you back in 1-2 months after these evaluations to determine the next steps. We discussed your current medications: - Continue taking gabapentin, but increase the dose to three times daily (600 mg per dose). Start by taking 600 mg twice daily and 300 mg once daily for 3-5 days, then increase to 600 mg three times daily. Let me know how this adjustment works for you. - If gabapentin does not provide sufficient relief, we can consider switching to pregabalin (Lyrica) at your next visit. - Continue your other medications as prescribed, including diclofenac, lidocaine patches, and tizanidine. We discussed your multiple sclerosis (MS): - You feel your MS symptoms may be worsening. It is important to prioritize controlling your MS, asthis could impact your pain and overall health. - Dr. Temple referred you to Dr. Korin Louis for neurology care. Please call to schedule this appointment as soon as possible. Follow-Up Plan: - Schedule an appointment with Dr. Korin Louis (neurology) to evaluate your MS. - Schedule an appointment with Dr. Lyndsey Emery (pain psychology) for a psychological evaluation related to the spinal cord stimulator. - Follow up with me in 1-2 months after completing these evaluations to discuss the next steps in your care plan. Please let us know if your symptoms worsen or if you have any questions about your care plan. documented in this encounterK[facility]06-10-2025 NoteHNO ID: [id number] Author: AYAAN MORELAND MD Service: ? Author Type: Physician Type: Progress Notes Filed: 10/13/2024 09:18 Note Text: [facility] Consultation Date: October 13, 2024 - 8:50 AM Referring physician: Shawn Everett [id number] [facility] [address] Kvng Landry is seen in consultation requested by Dr. Shawn Everett for an opinion regarding chronic lower back and bilateral lower extremity pain. My final recommendations will be communicated back to the requesting physician by way of shared medical record or via US mail. 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[facility]) Depression Diabetes mellitus, type 2 ([facility]) DVT, lower extremity ([facility]) Essential hypertension History of myocardial infarction due to atherothrombotic coronary artery disease Hypothyroidism Malfunction of electrode lead of cardiac pacemaker atrial lead Mixed hyperlipidemia MS (multiple sclerosis) ([facility]) Multiple sclerosis ([facility]) Presence of cardiac pacemaker [employer] dual-chamber MRI conditional pacemaker system implanted 02/06/2021 for second degree AV block; system extracted (removed) 09/11/2023 due to lead malfunction; new [employer]onic dual-chamber pacemaker system reimplanted (system will be MRI conditional after 6 weeks post implant) PVC (premature ventricular contraction) RA (rheumatoid arthritis) ([facility]) 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 Baer on 09/11/2023. Systemic lupus erythematosus ([facility]) Intensity of pain: 4 on a scale of 0-10 NRS. Duration of pain: 8 Years ago. The pain is located Back-Lower and radiates around the hips to the lateral and anterior thighs to the toes bilaterally, right much worse than left. Pain Description and Timing: Continuous Aching, Burning, Numbness, Pressure, Pulsating, Radiating, Shooting, Tenderness, Throbbing, Tightness, Tingling Aggravating Factors: activity, standing, and walking Alleviating Factors: Medication, Reposition, Relaxation, Cold, Heat, Massage, Positioning Interference with: physical activity, work, walking, cooking, household cleaning, and social activities Patient entered comments: stems from the back, back surgery has not helped. Did receive a right knee injection, lasted a week. Still stems from back i believe, due to the amount of numbness and pain that I have Kvng Landry is a 54-year-old female with a history of MS and chronic low back pain, presenting for evaluation of persistent pain and numbness following a recent laminotomy with decompression. Kvng reports chronic low back pain radiating to the anterior and lateral thighs, extending to the toes with associated numbness, particularly in the pinky toes. The right side is significantly worse than the left. She underwent a laminotomy with decompression in August by Dr. Temple, which provided no relief. Her pain history dates back to at least 2016, though symptoms began prior to that. She has a history of MS, diagnosed at age 26, and is currently on disability but working part-time until a replacement is found. Current medications include diclofenac 75 mg BID, gabapentin 600 mg BID, lidocaine patches, and tizanidine 4 mg at bedtime. She recently visited the emergency room to rule out a DVT and was found to have a Cullen's cyst behind one knee. She was prescribed Percocet until her upcoming orthopedic appointment. She also received a steroid injection recently. Prior to surgery, Kvng underwent extensive pain management and physical therapy, which reportedly worsened her symptoms. She received spinal injections, including epidurals, which initially provided relief but were less effective over time. Dr. Temple has suggested evaluation for a spinal cord stimulator. Kvng describes her pain as starting in the low back and radiating around to the anterior and lateral thighs, extending to the toes with associated numbness, particularly in the pinky toes. The right side is significantly worse than the left. She also reports a sensation of heaviness and pressure when standing, describing it as feeling like "sandbags" are attached to her waist. She has experienced falls due to (more content not included)...[facility] 10-13-2024 History of Present illness Narrative* Ayaan Moreland MD - 10/13/2024 8:50 AM EDT Images from the original note were not included. [facility] Pain Management Department Consultation Date: October 13, 2024 - 8:50 AM Referring physician: Shawn Everett [address] [facility] [address] Kvng Landry is seen in consultation requested by Dr. Shawn Everett for an opinion regarding chronic lower back and bilateral lower extremity pain. My final recommendations will be communicated back to the requesting physician by way of shared medical record or via US mail. 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[facility]) Depression Diabetes mellitus, type 2 ([facility]) DVT, lower extremity ([facility]) Essential hypertension History of myocardial infarction due to atherothrombotic coronary artery disease Hypothyroidism Malfunction of electrode lead of cardiac pacemaker atrial lead Mixed hyperlipidemia MS (multiple sclerosis) ([facility]) Multiple sclerosis ([facility]) Presence of cardiac pacemaker [employer] dual-chamber MRI conditional pacemaker system implanted 02/06/2021 for second degree AV block; system extracted (removed) 09/11/2023 due to lead malfunction; new Medtronic dual-chamber pacemaker system reimplanted (system will be MRI conditional after 6 weeks post implant) PVC (premature ventricular contraction) RA (rheumatoid arthritis) ([facility]) 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 Baer on 09/11/2023. Systemic lupus erythematosus (HCC) Intensity of pain: 4 on a scale of 0-10 NRS. Duration of pain: 8 Years ago. The pain is located Back-Lower and radiates around the hips to the lateral and anterior thighs to the toes bilaterally, right much worse than left. Pain Description and Timing: Continuous Aching, Burning, Numbness, Pressure, Pulsating, Radiating, Shooting, Tenderness, Throbbing, Tightness, Tingling Aggravating Factors: activity, standing, and walking Alleviating Factors: Medication, Reposition, Relaxation, Cold, Heat, Massage, Positioning Interference with: physical activity, work, walking, cooking, household cleaning, and social activities Patient entered comments: stems from the back, back surgery has not helped. Did receive a right knee injection, lasted a week. Still stems from back i believe, due to the amount of numbness and pain that I have Kvng Landry is a 54-year-old female with a history of MS and chronic low back pain, presentingfor evaluation of persistent pain and numbness following a recent laminotomy with decompression. Kvng reports chronic low back pain radiating to the anterior and lateral thighs, extending to the toes with associated numbness, particularly in the pinky toes. The right side is significantly worse than the left. She underwent a laminotomy with decompression in August by Dr. Temple, which provided no relief. Her pain history dates back to at least 2017, though symptoms began prior to that. Shehas a history of MS, diagnosed at age 26, and is currently on disability but working part-time until a replacement is found. Current medications include diclofenac 75 mg BID, gabapentin 600 mg BID, lidocaine patches, and tizanidine 4 mg at bedtime. She recently visited the emergency room to rule out a DVT and was found to have a Cullen's cyst behind one knee. She was prescribed Percocet until her upcoming orthopedic appointment. She also received a steroid injection recently. Prior to surgery, Kvng underwent extensive pain management and physical therapy, which reportedly worsened her symptoms. She received spinal injections, including epidurals, which initially provided relief but were less effective over time. Dr. Temple has suggested evaluation for a spinal cord stimulator. Kvng describes her pain as starting in the low back and radiating around to the anterior and lateral thighs, extending to the toes with associated numbness, particularly in the pinky toes. The right side is significantly worse than the left. She also reports a sensation of heaviness and pressurewhen standing, describing it as feeling like "sandbags" are attached to her waist. She has experienced falls due to weakness and numbness in her feet, which she attributes to either her back or MS. Nerve conduction tests have been performed, but the exact cause of the numbness remains unclear. She is currently under the care of Dr. Severino in [place] for her MS, but is considering a change in neurologists. She has been referred to Dr. Korin Louis for neurology and has an upcoming endocrinology appointment in 2 weeks. She expresses concern that her MS may be worsening, describing it as "on a slope that it's been really going." She reports that gabapentin provides some relief but does not address the deep pain and makes her feel "like my head's more in the clouds." Tizanidine is effective but impairs her ability to function. She has not yet increased her gabapentin to TID as suggested by Dr. Severino. 09/02/24 Ortho did R knee CSI 08/10/24 L4-5 laminotomy 03/31/24 CareEverywhere PM note: Tracy follows up for multiple sclerosis and spinal stenosis. Seemed to have been in clinical remission on Copaxone, but developed allergy, possible after switching to generic. Now on vumerity since Dec 2021 and progressive symptoms as noted below, possible related to another health issue like lupus. Also has L4-5 stenosis since 2016, was seeing Dr. Faulkner, now Dr. Carranza. MRI brain and cervical and thoracic spine w/wo contrast Feb 2024 stable MS lesions in brain and C3, no stenosis. Imaging in 2019 noted to be stable compared to 2011. CT lumbar spine Jun 2023 mild DDD with at most mild stenosis L4-5. CBC and HFT ok Feb 2024. Thiamine, B12, MMA, A1c, FT4, SPEP also unremarkable. A1c 6.9%. Despite imaging stability, progressive symptoms since 2021 -- right leg feeling heavy, walking change ("crooked"), tired (prior PSG negative), fatigued, cognitive decline, urge incontinence, foot numbness, 'jolts' on right side, burning pain right leg. Pending neurocog evaluation by Dr. Buchanan May 2024. Limited benefit from 3 days IV solumedrol Jun 2023. Last visit 02/05/24, ordered the neuropathy labs which were unremarkable except for diabetes. Mentioned prior EMG with pain management, no neuropathy reported. Reviewed continuing vumerity since symptoms did not seem consistent with progression of MS but consider switching to briumvi. She's also on modafinil 200 mg daily (restarted last visit), tizanidine 4 mg as needed, and vit D 1000U daily. Modafinil helping alertness and energy. Still hard to sleep at night. Still issues with imbalance and pain. Getting second opinion about the back. Dr. Everett at [facility]. No update about the lupus. Seeing Dr. Valencia Reviewed MS seems stable. Might want to consider briumvi next year. She still wonders about the neuropathy. Past Treatments: In the past 12 months, She completed 10 physical therapy sessions. Physical therapy is not helpful. Litigation: No. Worker's Compensation: No. The patient has seen other pain providers. Past pain treatment has included epidurals, PT, and Surgery Past pain medications have included NSAIDs (advil, ibuprofen, celebrex, meloxicam, etc) Gabapentin Muscle relaxers (tizanidine, methocarbamol (robaxin), cyclobenzaprine (flexeril) Opioids: Oxycodone (percocet) She had relief from the following interventions: None She had relief from the following medications:NSAIDs (advil, ibuprofen, celebrex, meloxicam, etc) Gabapentin Muscle relaxers (tizanidine, methocarbamol (robaxin), cyclobenzaprine (flexeril) Opioids: Oxycodone (percocet) Text in 8pt font and Italicized was copied and pasted from the EHR to be considered in my evaluation of this patient today. Those areas highlighted in red are significant and specific to today's encounter. Review of Systems Constitutional: Negative. HENT: Negative. Eyes: Negative. Respiratory: Negative. Cardiovascular: Negative. Gastrointestinal: Negative. Genitourinary: Negative. Musculoskeletal: Positive for back pain and joint pain. Skin: Negative. Neurological: Numbness Endo/Heme/Allergies: Negative. Psychiatric/Behavioral: Negative. OBJECTIVE Imaging Objective October 13, 2024 02/21/24 MRI LUMBAR Latest Ref Rng 08/10/2024 Glucose, Point of Care 74 - 99 mg/dL 173 ! Glucose, Point of Care 220 ! Legend: ! Abnormal Labs: (No diagnostics mentioned) Tests: Nerve conduction studies: No results stated - unable to find record. Reports listed here were copied and pasted directly into the note by myself after review of the complete report and/or the images. Those areas highlighted in red are significant to today's encounter. Physical Examination Physical Exam Vitals: BP 136/79 Pulse 81 Resp 18 LMP 08/08/2006 General: Well appearing, alert, in no acute distress, well-hydrated, well nourished. and Obese Mental Status: Alert and Oriented x3. Speech is normal. Affect: happy Skin: Skin color, texture, turgor normal, no suspicious rashes or lesions HEENT: Pupils equal, round, reactive to light. Not pinpoint. Pulmonary: Breathing easily without tachypnea or bradypnea. Cardiac: no LE edema. Abdomen: not distended Ambulation: Gait is normal. Patient ambulates, w/ cane. Neuro/Musculoskeletal: Cervical Spine: Shoulder: Upper Extremity: Thoracic Spine: Lumbar Spine: Sacroiliac Joint: Lower Extremity: Patient denies any red flag symptoms such as bowel/bladder dysfunction or sudden weakness. Assessment & Plan Assessment & Plan 10/13/2024 The primary encounter diagnosis was Post laminectomy syndrome. Diagnoses of Status post lumbar spine operative procedure for decompression of spinal cord, Pain disorder associated with psychological and physical factors, Radiculopathy, lumbar region, MS (multiple sclerosis) (HCC), S/P cardiac pacemaker procedure, Presence of cardiac pacemaker, and Obesity, Class III, BMI >= 40 were also pertinent to this visit. # Post laminectomy syndrome (M96.1) # Status post lumbar spine operative procedure for decompression of spinal cord (Z98.890) # Radiculopathy, lumbar region (M54.16) Persistent low back pain radiating to anterior and lateral thighs, extending to toes with numbness,predominantly on the right side. No relief from previous laminotomy with decompression performed byDr. Temple in August. Extensive history of pain management and physical therapy, with PT reportedly exacerbating symptoms. Previous epidural injections provided initial relief but were ineffective in the last year. - Increase gabapentin to 600 mg TID. - Consider transition to pregabalin if no improvement with increased gabapentin dosage. - Schedule follow-up in 1-2 months to reassess pain management and discuss potential spinal cord stimulator trial. # Pain disorder associated with psychological and physical factors (F45.42) Chronic pain with significant impact on daily functioning. No current evidence of treatable mental conditions contributing to pain. - Schedule evaluation with pain psychologist Lyndsey Emery to assess understanding and readiness forpotential spinal cord stimulator trial. # MS (multiple sclerosis) ([facility]) (G35) Diagnosed at age 26, currently managed by Dr. Severino in [place]. Reports worsening symptoms. Potentialcontributor to bilateral foot numbness. - Follow-up with neurologist Dr. Korin Louis to assess current status and management of MS. - Prioritize control of MS symptoms before proceeding with spinal cord stimulator trial. # S/P cardiac pacemaker procedure (Z95.0) # Presence of cardiac pacemaker (Z95.0) Patient has a cardiac pacemaker in situ. - Ensure compatibility of spinal cord stimulator with existing pacemaker before proceeding with trial. # Obesity, Class III, BMI 40-49.9 (morbid obesity) ([facility]) (E66.813) Contributing factor to increased pressure and heaviness reported in lower extremities. The above plan and management options were discussed with patient. The patient is in agreement withthe above and verbalized understanding. Ayaan Moreland MD Electronic signature This office note has been dictated and may contain minor typographic errors that escaped review. Parts of this note may have been input by my medical safety director, resident, fellow, nurse, or nurse practitioner and have been independently verified or corrected as indicated by myself. Relevant History from the Electronic Medical Record Questionnaires: Descriptive Summary for PROMIS Physical Function T-score = 23 (Percentile 0) Unable - Do chores such as vacuuming or yard work. Much difficulty - Run errands and shop. Much difficulty - Walk about the house. Pain Disability Index No data to display Patient Entered Questionnaires 04/16/2024 08/18/2024 09/20/2024 Spine Questions Pain Location: Lower back Lower back Lower back Symptoms from neck/cervical spine: No No No Employment Status: Other Off work 1 month or more due to back/neck pain: Yes Applied for/receive disability/WC due to low back/neck pain Yes PROMIS Score Percentiles 03/30/2024 08/18/2024 09/20/2024 Physical Health Physical Function Percentile 1 4 0 Sleep Percentile 10 10 4 Fatigue Percentile 4 4 1 Pain Interference Percentile 1 0 0 03/30/2024 08/18/2024 09/20/2024 PROMIS SOCIAL ROLE SCORE Social Role Satisfaction Percentile 1 1 1 03/30/2023 03/30/2024 07/25/2024 PROMIS Global Health Scale Physical Health Percentile 7 2 7 Mental Health Percentile 5 5 13 Patient-reported 09/20/2024 08/18/2024 03/30/2024 PROMIS CAT Physical Function T-Score 23 (severe dysfunction) 33 (moderate dysfunction) 27 (severe dysfunction) Percentile 0 4 1 Percentiles provide an indication of how the patient's score ranks in relation to the general population. Higher percentile rankings indicate better function/quality of life. 50th percentile is the average of the general population and indicates half of respondents had a worse score. > 31st percentile is within normal limits or better * < 31st percentile is at least SD worse than population, which may be clinically relevant < 16th percentile is at least 1 SD worse than population and warrants attention Depression Screenin03/30/2024 09/02/2024 09/20/2024 PHQ-9 Score 14 24 22 09/20/2024 09/02/2024 03/30/2024 PHQ-9 Self Harm Question 9 More than half the days More than half the days Several days PHQ-9 Self-Harm (Item 9) response options: 0 Not at all 1 Several days 2 More than half the days 3 Nearly every day PHQ-9 Levels: 0-4 Minimal depression 5-9 Mild depression 10-14 Moderate depression 15-19 Moderately severe depression 20-27 Severe depression PHQ-9 Score 09/20/2024 22 09/02/2024 24 03/30/2024 14 (0-4) minimal depression, (5-9) mild depression, (10-14) moderate depression, (15-19) moderately severe depression, (20-27) severe depression No data to display No data to display ALLERGIES Allergen Reactions Codeine Anaphylaxis, Other: See Comments Erythromycin Rash, Swelling Toradol [Ketorolac] Itching Given with Vicodin at the time of the reaction. Vicodin [Hydrocodon* Itching Given with Toradol at the time of the reaction. Amlodipine Other: See Comments Cefdinir Other: See Comments Copaxone [Glatirame* Shortness of Breath Hydrocodone Other: See Comments Jardiance [Empaglif* Other: See Comments Chronic yeast infection Penicillins Hives Current Medications: diclofenac, EC, (VOLTAREN) 75 mg EC tablet Take 1 tablet by mouth two times a day. for pain. lidocaine (SALONPAS) 4 % patch APPLY ONE PATCH AT NIGHT AND LEAVE ON FOR 12 HOURS THEN REMOVE DURING THE DAY sertraline (ZOLOFT) 50 mg tablet 1 tablet every day by oral route. carvedilol (COREG) 25 mg tablet Take by mouth once daily. FREESTYLE LUIS MIGUEL 3 SENSOR wilbur CHANGE SENSOR EVERY 14 DAYS cholecalciferol, Vitamin D3, (VITAMIN D3) 1,250 mcg (50,000 unit) cap capsule Take 1 capsule by mouth one time a week. TRUE METRIX GLUCOSE TEST STRIP test strip use 1 TEST STRIP to TEST BLOOD SUGAR four times a day TRUE METRIX GLUCOSE METER as directed. TRUEPLUS LANCETS 30 gauge use 1 LANCET to TEST BLOOD SUGAR four times a day cholecalciferol (VITAMIN D3) 1,000 unit tab tablet Take 1 tablet by mouth every afternoon. tiZANidine (ZANAFLEX) 4 mg tablet Take 4 mg by mouth daily at bedtime. levothyroxine (SYNTHROID) 150 mcg tablet Take 1 tablet by mouth every afternoon. insulin lispro (HUMALOG KWIKPEN) 100 unit/mL inject 10 units subcutaneously three times a day aspirin, enteric coated (ASPIRIN, ENTERIC COATED) 81 mg EC tablet Take 81 mg by mouth once daily. omega-3 fatty acids/fish oil (FISH OIL-OMEGA-3 FATTY ACIDS) 300-1,000 mg cap Take by mouth. Sjakttqybegxt-Nbqqmcug-Hpnqjb (MULTIVITAMIN 50 PLUS) tab Take 1 tablet by mouth once daily. Ascorbic Acid (VITAMIN C) 1,000 mg tablet Take 1,000 mg by mouth once daily. diroximel fumarate (VUMERITY) 231 mg capsule, delayed release Take 462 mg by mouth two times a day. hydroCHLOROthiazide 25 mg tablet Take 12.5 mg by mouth once daily. rosuvastatin (CRESTOR) 5 mg tablet Take 5 mg by mouth once daily. insulin glargine (LANTUS SOLOSTAR U-100 INSULIN) 100 unit/mL (3 mL) Inject 32 Units subcutaneously every morning. gabapentin (NEURONTIN) 300 mg capsule Take 600 mg by mouth two times a day. losartan (COZAAR) 50 mg tablet Take 50 mg by mouth two times a day. acetaminophen (TYLENOL) 500 mg tablet Take 1 tablet by mouth every 6 hours as needed. 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[facility]) Depression Diabetes mellitus, type 2 ([facility]) DVT, lower extremity ([facility]) Essential hypertension History of myocardial infarction due to atherothrombotic coronary artery disease Hypothyroidism Malfunction of electrode lead of cardiac pacemaker atrial lead Mixed hyperlipidemia MS (multiple sclerosis) ([facility]) Multiple sclerosis ([facility]) Presence of cardiac pacemaker [employer] dual-chamber MRI conditional pacemaker system implanted 02/06/2021 for second degree AV block; system extracted (removed) 09/11/2023 due to lead malfunction; new [employer] dual-chamber pacemaker system reimplanted (system will be MRI conditional after 6 weeks post implant) PVC (premature ventricular contraction) RA (rheumatoid arthritis) ([facility]) 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 Baer on 09/11/2023. Systemic lupus erythematosus ([facility]) PAST SURGICAL HISTORY Procedure Laterality Date BASIC PACEMAKER DUAL CHAMBER Left 02/06/2021 [employer] dual-chamber MRI conditional pacemaker system implanted for second degree AV block BASIC PACEMAKER DUAL CHAMBER Left 09/11/2023 [employer] dual-chamber pacemaker system implant; RV septal lead, paced QRS duration 108 ms; system will be MRI conditional after 6 weeks post implant; CCAG Dr. aBer ECHOCARDIOGRAM 08/02/2023 [facility]; see scanned documents LAPAROSCOPY SURG CHOLECYSTECTOMY Cholecystectomy, lap NEUROPLASTY &/TRANSPOS MEDIAN NRV CARPAL TUNNE Carpal tunnel decomp PACEMAKER - REMOVAL/REPOSITION LEAD DUAL Left 09/11/2023 [employer] dual-chamber pacemaker system extraction (removal); CCAG Dr. Baer PAST SURGICAL HISTORY OF uterine ablation TONSILLECTOMY PRIMARY/SECONDARY <AGE 12 Tonsillectomy TOTAL ABDOMINAL HYSTERECT W/WO RMVL TUBE OVARY Hysterectomy, SHADY FAMILY HISTORY Adopted: Yes Problem Relation Age of Onset No Known Problems Mother adopted, but knows some medical facts about mother other (other) Father adopted, does not know anything about father Breast Cancer Maternal Grandmother Alcohol abuse Maternal Grandfather Social History: Alcohol Use: Yes (few times per week) Tobacco Use: Types: Cigarettes Drug Use: No Employer And Job Title: None on file Years Of Education Completed: Not specified Marital Status: Medical Decision Making Notes and tests identified as copied and pasted above were directly placed into the frame of this note by myself and are pertinent to my medical decision making. [place]AR[place]: PDMP website checked and validated and is consistent with medication report. [facility] encounter Note * Telephone Encounter - Nilda Puga - 10/09/2024 2:58 PM EDT Pt is man Puga [facility]06-06[facility]25 Miscellaneous Notes* Telephone Encounter - Nilda Puga - 10/09/2024 2:58 PM EDT Pt is man Puga * Telephone Encounter - Estrella Dean - 10/09/2024 2:01 PM EDT Patient was seen recently in the ED for right knee pain. She would like to make a follow-up with Stewart Franks PA-C. Patient can be reached at [phone]. Thank you. Estrella Sauer documented in [facility] Telephone encounter Note * Telephone Encounter - Fernando Jose SauerEstrella - 10/09/2024 2:01 PM EDT Patient was seen recently in the ED for right knee pain. She would like to make a follow-up with Stewart Franks PA-C. Patient can be reached at [phone]. Thank you. Estrella King Jose Sauer [facility]06-06-2025 Discharge summary [facility] Medical Records Department [address] [place] [address] Emergency Department Summary 10/09/24 MR#: [id number] Acct: [id number] Name: KVNG LANDRY Rep #:[id number] : 1970 54 From: Marcello Doe MD PCP: Dr. Elmer Richards MD Status:REG ER Location: ED HPI History of Present Illness Chief Complaint: Edema Detail of Chief Complaint: Right leg pain and swelling and respiratory symptoms Informant: patient Onset/Context/Timing Onset: Days (Cough and congestion started 3 days ago) and Weeks (Leg pain and swelling started approximate week ago) Context: Sudden Onset Timing: Continuous (Leg pain has been constant located proximal calf popliteal fossa) and Intermittent (Respiratory symptoms been intermittent) Quality: Pain Location: Posterior leg on the right Current Severity: Mild Maximum Severity: Moderate Worsened by: Palpation Relieved by: Nothing Associated Symptoms Associated Symptoms: HPI narrative Narrative Narrative: Patient is a 54-year-old woman. She is status post microdiscectomy beginning ofApril L4-L5 for herniated disc. She contacted her surgeon. Because she has been complaining of leg pain swelling and reported shortness of breath he recommended she come to the emergency room for evaluation. She denies fever, chills night sweats. She denies rhinorrhea or postnasal drainage. She denies sore throat. Her cough is nonproductive. She denies chest pressure, tightness or heaviness. She denies pleuritic chest pain. She denies GI symptoms. She denies prior history of DVT or PE. She is presently on a baby aspirin. She is on no anticoagulant. Prior similar symptoms: No Recent Illness/Hospitalization: Yes [facility] Medical History Preop cardiovascular exam Edema of both upper extremities Lupus (systemic lupus erythematosus) Nonsustained monomorphic ventricular tachycardia Pacemaker lead malfunction Coronary-myocardial bridge Obesity Anxiety Thyroid disease Rheumatoid arthritis Anemia Easy bruising Excessive bleeding Migraine headache Back pain Hx of vertigo Multiple sclerosis Dietary restriction Former smoker Shortness of breath on exertion History of pain when walking History of edema Cardiology follow-up encounter Mobitz type 2 second degree AV block Arthritis Seasonal allergies Coronary-myocardial bridge Abnormal electrocardiogram Vitamin D deficiency Hypothyroidism Essential (primary) hypertension Spinal stenosis Uncontrolled diabetes mellitus with microalbuminuria Type 2 diabetes mellitus Cervicalgia Hyperlipidemia Insomnia Right bundle branch block (RBBB) Home Medications ?Medication ?Instructions ?Recorded ?Last Taken ?Type tizanidine 4 mg capsule 4 mg PO QHS muscle spasms Unknown History lancing device with lancets kit #1 ea 03/11/23 Unknown Rx (Accu-Chek FastClix Lancing Device kit) blood sugar diagnostic (Accu-Chek #150 ea 07/08/23 Unk nown Rx Guide test strips) blood-glucose meter (Accu-Chek #1 ea 07/08/23 Unknown Rx Guide Glucose Meter) lancets (Accu-Chek Fastclix Lancet #200 ea 07/08/23 Un known Rx Drum) aspirin 81 mg tablet,delayed 81 mg PO DAILY 07/12/23 U nknown History release (Adult Low Dose Aspirin) rosuvastatin 5 mg tablet 5 mg PO DAILY #90 tabs 11/21 Unknown Rx diclofenac sodium 50 mg 50 mg PO TID 01/01/24 Unknow n History tablet,delayed release semaglutide 0.25 mg or 0.5 mg (2 0.5 mg (0.736 mL) sub cut QWEEK #3 01/01/24 Unknown Rx mg/3 mL) subcutaneous pen injector mL (Ozempic) insulin lispro 100 unit/mL 15 unit (0.15 mL) subcut TI D #40.5 05/11/24 Unknown Rx subcutaneous pen (Humalog KwikPen mL (U-100) Insulin) blood-glucose sensor (FreeStyle #2 ea 05/18/24 Unknown Rx Luis Miguel 3 Sensor device) modafinil 200 mg tablet 200 mg PO QDAY 05/18/24 Unkn own History sertraline 50 mg tablet 50 mg PO QDAY 05/18/24 Unkno wn History levothyroxine 150 mcg tablet 150 mcg PO DAILY thyroid #90 tabs 05/28/24 Unknown Rx pen needle, diabetic 32 gauge x #400 ea 07/03/24 Unkno wn Rx " (BD Ultra-Fine Rin Pen Needle) cholecalciferol (vitamin D3) 50 50 mcg PO QDAY #90 cap s 07/15/24 Unknown Rx mcg (2,000 unit) capsule carvedilol 25 mg tablet 12.5 mg (1/2 x 25 mg) PO BID #60 07/28/24 Unknown Rx tabs losartan 50 mg tablet 50 mg PO QDAY #180 tabs 07/05 09/27 Unknown Rx blood sugar diagnostic (True #50 ea 08/04/24 Unknown R x Metrix Glucose Test Strip) blood-glucose meter (True Metrix #1 ea 08/04/24 Unknow n Rx Glucose Meter) lancets 30 gauge (BD Microtainer #100 ea 08/04/24 Unkn own Rx Lancet) acetaminophen 500 mg tablet 1,000 mg PO BID PRN Unknown History (Tylenol Extra Strength) diroximel fumarate 231 mg 462 mg PO BID 08/06/24 Unkno wn History capsule,delayed release (Vumerity) gabapentin 600 mg tablet 600 mg PO BID 08/06/24 Unkno wn History hydrochlorothiazide 25 mg tablet 25 mg PO DAILY this i s a dose 09/21/24 Unknown Rx increase #90 tabs insulin glargine 100 unit/mL (3 32 unit (0.32 mL) subc ut QAM #30 mL 09/23/24 Unknown Rx mL) subcutaneous pen (Lantus Solostar U-100 Insulin) Allergy/AdvReac Type Severity Reaction Status Date / Time glatiramer (copolymer 1) Allergy Severe hypotension, Verified 10/09/24 10:45 (From Copaxone) shaking, irregular breathing empagliflozin (From Allergy Intermediate yeast Verified 10/09/24 10:45 Jardiance) infection codeine Allergy Anaphylaxis Verified 10/09/24 10:45 Penicillins Allergy rash Verified 10/09/24 10:45 amlodipine AdvReac Intermediate Swelling Verified 10/09/24 10:45 in shins and ankles ached erythromycin base (From AdvReac Unknown Verified 10/09/24 10:45 Erythrocin) hydrocodone (From Vicodin) AdvReac syncope Verified 10/09/24 10:45 ketorolac (From Toradol) AdvReac anxious Verified 10/09/24 10:45 Family History Other Adopted Surgical History History of permanent cardiac pacemaker placement (02/06/21) History of cardiac catheterization History of left heart catheterization (07/30/18) Hx of cholecystectomy History of carpal tunnel release History of hysterectomy History of parathyroidectomy H/O partial thyroidectomy Social History adopted: Yes household members: spouse and children current occupational status: employed current occupation: [employer] Smoking Status: Former smoker quit date: 05/06/96 pack-years: 2 alcohol intake: never substance use type: does not use caffeine: Yes what type of physical activity do you participate in: none frequency: daily ROS ROS ED Constitutional Constitutional ED: Denies chills, fever(s), subjective, sweats or weight loss Eyes Eyes: Denies blurry vision or change in vision ENT ENT ED: Denies rhinorrhea or sore throat Cardiovascular Cardiovascular: Denies chest pain, orthopnea, palpitations, paroxysmal nocturnaldyspnea or racing heartbeat Respiratory/Chest Respiratory/Chest: Reports cough and dyspnea; Denies dyspnea on exertion, orthopnea, paroxysmal nocturnal dyspnea or sputum Gastrointestinal Gastrointestinal: Denies abdominal pain, nausea or vomiting Musculoskeletal Musculoskeletal: Reports other Details: Posterior right lower extremity pain, leg ; Denies back pain Integumentary Denies rash Neurologic Neurologic: Denies headache(s) or paresthesias Hematologic/Lymphatic Hematologic/Lymphatic: Reports systems reviewed and no addt'l complaints, exceptas documented EXAM Physical Exam Const Vital Signs: 10/09/24 10:44 10/09/24 10:44 Temperature 97.5 F L Temperature Source Temporal Pulse Rate 72 Respiratory Rate 14 Respiratory Effort Normal Non-Labored Respiratory Pattern Normal Blood Pressure 147/80 H Blood Pressure Mean 102 Pulse Ox 98 Oxygen Delivery Method Room Air Positive well nourished and well developed Constitutional Narrative: Blood pressure slightly elevated. Patient not tachypneic nor is she hypoxic. General Appearance ED: well developed and pallor HEENT Reports moist mucous membranes HEENT Narrative: Head is atraumatic normocephalic. Ears normal. Nares patent. Posterior pharynx is normal Eyes PERRL and EOMs intact bilaterally General Eye ED: Negative for pale conjunctiva or scleral icterus Neck no lymphadenopathy, supple and no JVD Chest Wall inspection of chest normal and palpation of chest normal Resp normal respiratory effort and clear to auscultation bilaterally Cardio regular rate, regular rhythm, S1 normal heart sound, S2 normal heart sound and no murmurs GI normal to inspection, nondistended, normoactive bowel sounds and non-tender Extremity Negative for normal to inspection Extremity Narrative: There is swelling of the right lower extremity. There is pain along the distribution deep venous system i.e. proximal calf, popliteal fossa and abductorcanal. There is question of some leg vein distention. Patient is on baby aspirin because she has a history of lupus anticardiolipin. She states if she ever has a blood clot she will be on anticoagulant for life. Patient also reports cough and shortness of breath started 3 days ago. Cough is nonproductive. She denies fever or chills. She denies any other symptoms. General Extremety ED: Yes tenderness; Negative for edema General Extremity: Negative for edema Neuro oriented x3, CN's II-XII intact bilaterally and no sensory deficits noted Sensorium / Orientation: alert Motor Exam: strength 5/5 throughout Psych mental status grossly normal Skin no rashes or lesions noted, no wounds and skin turgor normal General Skin Exam: pallor; Negative for elasticity normal or jaundice MDM MDM MDM Narrative Medical decision making narrative: Light of the fact the patient is status post surgery not been as active as atraumatic right leg swelling with pain palpation along the distribution deep venous system and has a Wells score of 2 patient's moderate pretest probability for DVT. Venous duplex study was ordered. Because she reports upper respiratory symptoms with cough a chest x-ray was obtained to assess for pneumonia. Prior records were reviewed. Last ER visit was February 2021. Patient's final diagnosis was noncardiac chest pain. She also had AV block. She does have a pacemaker. History & Record Review Additional record(s) reviewed:: Prior ED visit and Prior labs Lab Data Attestation: I reviewed the patient's lab results. Lab results narrative: CBC is unremarkable. Basic metabolic panel reveals a glucose of 255 with a normal CO2 anion gap. Patient does have history of diabetes. She is on insulin. Labs: Laboratory Results - last 24 hr 10/09/24 11:19 WBC 7.2 RBC 4.30 Hgb 12.9 Hct 37.8 MCV 87.9 MCH 30.0 MCHC 34.1 RDW Std Deviation 40.5 RDW Coeff of George 12.6 Plt Count 264 MPV 9.4 Immature Gran % (Auto) 0.300 Neut % (Auto) 74.5 H Lymph % (Auto) 11.2 L Porter % (Auto) 5.7 Eos % (Auto) 7.9 H Baso % (Auto) 0.4 Absolute Neuts (auto) 5.4 Absolute Lymphs (auto) 0.81 L Nucleated RBC % 0 Sodium 139 Potassium 4.0 Chloride 102 Carbon Dioxide 27.6 Anion Gap 9 BUN 10 Creatinine 0.64 L Est GFR (MDRD) Non-Af 105 BUN/Creatinine Ratio 15.4 Glucose 255 H Calcium 9.1 Venous duplex study reveals a Cullen's cyst. There is no evidence of DVT. Radiography Chest X-Ray - ED: 2 View and Read by ED Physician (2 view chest x-ray reveals hyperinflation. Thereis no obvious infiltrate and there is no effusion. Patient has dual-chamber pacemaker noted. Mediastinum appears unremarkable. Osseous structures with no acute process.) Diagnostic Testing: Clinical Impression(s) from Imaging Studies Chest X-Ray 10/09/24 12:10 IMPRESSION: Examination limited by AP portable technique, hypoinflation, body habitus, and patient motion. A left thoracic transvenous pacemaker with atrial and ventricular leads remains in place. Although lungs are hypoinflated, no acute pneumonic process is appreciated. No pleural effusion or pneumothorax is seen. The cardiomediastinal silhouette is stable, without evidence of cardiomegaly. Mild thoracic spine degenerative changes are seen. Reading Location: [address] Treatment and Re-Evaluation :: Patient was informed the results. She is discharged to home. Discharge Plan Triage Chief Complaint: Edema ED Provider: Marcello Doe Dx/Rx/DC Orders Clinical Impression: Synovial cyst of popliteal space [Cullen], right knee, Mobitz type 2 second degree AV block, Historyof permanent cardiac pacemaker placement, Lupus (systemic lupus erythematosus), Acute upper respiratory infection, Type 1 diabetes mellitus with hyperglycemia Instructions: ED Cullen's Cyst, ED URI, Viral, No Abx (Adult) Prescriptions: No Action Vumerity 231 mg capsule,delayed release(DR/EC) 462 mg PO BID aspirin [Adult Low Dose Aspirin] 81 mg tablet,delayed release (DR/EC) 81 mg PO DAILY diclofenac sodium 50 mg tablet,delayed release (DR/EC) 50 mg PO TID Ozempic 0.25 mg or 0.5 mg (2 mg/3 mL) pen injector 0.5 mg subcut QWEEK Qty: 3 5RF modafinil 200 mg tablet 200 mg PO QDAY sertraline 50 mg tablet 50 mg PO QDAY (DME) FreeStyle Luis Miguel 3 Sensor Device See Rx Instructions .Route Qty: 2 5RF Rx Instructions: 1 sensor q 14 days gabapentin 600 mg tablet 600 mg PO BID acetaminophen [Tylenol Extra Strength] 500 mg tablet 1,000 mg PO BID PRN tizanidine 4 mg Capsule 4 mg PO QHS (DME) lancing device with lancets [Accu-Chek FastClix Lancing Dev] Kit See Rx Instructions .Route Qty: 1 0RF Rx Instructions: As directed (DME) blood-glucose meter [Accu-Chek Guide Glucose Meter] Misc See Rx Instructions .Route Qty: 1 0RF Rx Instructions: As directed (DME) Accu-Chek Guide test strips Strip See Rx Instructions .Route Qty: 150 6RF Rx Instructions: 4 times daily (DME) lancets [Accu-Chek Fastclix Lancet Drum] Misc See Rx Instructions .Route Qty: 200 3RF Rx Instructions: 4 times per day rosuvastatin 5 mg tablet 5 mg PO DAILY Qty: 90 3RF insulin lispro [Humalog KwikPen Insulin] 100 unit/mL insulin pen 15 unit subcut TID Qty: 40.5 1RF levothyroxine 150 mcg tablet 150 mcg PO DAILY Qty: 90 1RF (DME) pen needle, diabetic [BD Ultra-Fine Rin Pen Needle] 32 gauge x 5/32" needle See Rx Instructions .ROUTE .MEDSUPPLY Qty: 400 3RF Rx Instructions: 4 times daily cholecalciferol (vitamin D3) 50 mcg (2,000 unit) capsule 50 mcg PO QDAY Qty: 90 3RF losartan 50 mg tablet 50 mg PO QDAY Qty: 180 3RF carvedilol 25 mg tablet 12.5 mg PO BID Qty: 60 11RF Rx Instructions: must administer with a meal/food (DME) blood-glucose meter [True Metrix Glucose Meter] Misc See Rx Instructions .Route Qty: 1 0RF Rx Instructions: As directed (DME) True Metrix Glucose Test Strip Strip See Rx Instructions .Route Qty: 50 8RF Rx Instructions: daily as backup to CGM (DME) lancets [BD Microtainer Lancet] 30 gauge misc See Rx Instructions .Route Qty: 100 3RF Rx Instructions: daily hydrochlorothiazide 25 mg tablet 25 mg PO DAILY Qty: 90 3RF insulin glargine [Lantus Solostar U-100 Insulin] 100 unit/mL (3 mL) insulin pen 32 unit subcut QAM Qty: 30 1RF Primary Care Provider: Elmer Richards Referrals: Elmer Richards MD [Primary Care Provider] - As Needed Activity Restrictions/Additional Instructions: Recommend contacting your orthopedic surgeon regarding the Cullen's cyst. Your blood sugar was elevated to 2 and 55. Print Language: Emirati Disposition Disposition: Home, Self Care What to do if you have Problems For any increased pain, shortness of breath, bleeding, nausea or vomiting, chestpain, or any unexpected problems, contact your Primary Care Provider. Call [facility] ([phone]) or report tothe closest Emergency Room. Call 911 if necessary. 10/09/24 1234 Cosigner Signature (if applicable): CC: Dr. Elmer Richards MD ~ Signed [facility]06-06-2025 Radiology Diagnostic study note [facility] Imaging Services [address] [place] [address] Chest PA and Lateral MR#: [id number] Acct: [id number] Name: KVNG LANDRY LEXI Rep #: [id number] : 1970 F 54 From: Rene Potter MD PCP: Dr. Elmer Richards MD Status: REG ER Study:Chest PA and Lateral Date of Exam: 10/09/24 Exam# [id number] Ordering Dr: Lisa Doe MD PROCEDURE: CHEST PA AND LATERAL 10/09/2024 REASON FOR EXAM: UPPER RESPIRATORY SYMPTOMS WITH SHORTNESS OF BREAT TECHNIQUE: Frontal and lateral views of the chest. COMPARISON: PA and lateral chest x-ray 03/12/2023. RAD/Chest PA and Lateral IMPRESSION: Examination limited by AP portable technique, hypoinflation, body habitus, and patient motion. A left thoracic transvenous pacemaker with atrial and ventricular leads remains in place. Although lungs are hypoinflated, no acute pneumonic process is appreciated. No pleural effusion or pneumothorax is seen. The cardiomediastinal silhouette is stable, without evidence of cardiomegaly. Mild thoracic spine degenerative changes are seen. Reading Location: [id number] CC: Dr. Elmer Richards MD; Dr. Marcello Doe MD ~ Technical Training Instructor: Signed [facility]06-06-2025 Telephone encounter Note* Telephone Encounter - Stephanie Storm RN - 10/09/2024 10:12 AM EDT NEUROSURGERY CARE COORDINATION [facility] QUICK NOTE Chart reviewed. Patient S/P Right MIS Approach to Bilateral L4/[address] Everett on 08/10. Noted most recent post-op appointment with Dr. Everett dated 09/22. Noted recent encounters. Called patient at home/mobile phone number, verified name and , discussed MC message, states currently en route to OSH ER d/t inability to bear weight on BLE, discussed OSH ER team will contact NSGY team with Dr. Everett, all questions answered, states understanding, aware to contact this office again as needed. No further action required by this RN at this time. TRINI Cohen, RN October 09, 2024 10:17 AM [facility]06-06-2025 Miscellaneous Notes* Telephone Encounter - Stephanie Storm RN - 10/09/2024 10:12 AM EDT NEUROSURGERY CARE COORDINATION [facility] QUICK NOTE Chart reviewed. Patient S/P Right MIS Approach to Bilateral L4/[address] Everett on 08/10. Noted most recent post-op appointment with Dr. Everett dated 09/22. Noted recent encounters. Called patient at home/mobile phone number, verified name and , discussed MC message, states currently en route to OSH ER d/t inability to bear weight on BLE, discussed OSH ER team will contact NSGY team with Dr. Everett, all questions answered, states understanding, aware to contact this office again as needed. No further action required by this RN at this time. TRINI Cohen, RN October 09, 2024 10:17 AM documented in [facility] Telephone encounter Note * Telephone Encounter - Yadi PalaciosPharmacy Rehab NurseMercedes mireles - 10/05/2024 10:14 AM EDT === PHARMACY TEAM ==== ADDITIONAL INFORMATION NEEDED/REQUESTED Case Submitted: No Request Type: Provider Date of Service: TBD Additional Information Needed: Initial Requests (Most Payers A & B are required) A. Diagnosis of osteoarthritis confirmed by radiological evidence (e.g. x-ray, MRI, CT Scan) B. Patient has tried and failed conservative therapies (when & for how long): 1. Physical therapy or documented home exercise routine (at least 4-6 weeks1 2. NSAIDS, acetaminophen or topical capsacin creams (document length of use) and 3. At least two cortisone injections with documented results* (or efficacy was less than 4 weeks duration Request from Payor by: N/A Email Sent to: ENCOUNTER-STEWART FRANKS Requested Clinicals/Information Sent: N/A [facility]06-02-2025 Miscellaneous Notes* Telephone Encounter - Yadi (Pharmacy Rehab Nurse)Mercedes - 10/05/2024 10:14 AM EDT === PHARMACY TEAM ==== ADDITIONAL INFORMATION NEEDED/REQUESTED Case Submitted: No Request Type: Provider Date of Service: TBD Additional Information Needed: Initial Requests (Most Payers A & B are required) A. Diagnosis of osteoarthritis confirmed by radiological evidence (e.g. x-ray, MRI, CT Scan) B. Patient has tried and failed conservative therapies (when & for how long): 1. Physical therapy or documented home exercise routine (at least 4-6 weeks1 2. NSAIDS, acetaminophen or topical capsacin creams (document length of use) and 3. At least two cortisone injections with documented results* (or efficacy was less than 4 weeks duration Request from Payor by: N/A Email Sent to: ENCOUNTER-STEWART FRANKS Requested Clinicals/Information Sent: N/A documented in this encounterK[facility] Telephone encounter Note * Telephone Encounter - Stephanie Storm RN - 09/29/2024 2:32 PM EDT NEUROSURGERY CARE CO[facility]IN[facility] QUICK NOTE See below response per REBEKA. Noted new Methocarbamol (Robaxin) prescription. Return Task Messenger message sent to patient by this RN, see Task Messenger message for further details. No further action required by this RN at this time. Marv Pretty, EVELIN.COUNSELING CASE MANAGER 09/29/24 1:56 PM Can increase Gabapentin to TID. Will reorder Robaxin. I do not think an opioid will help the type of pain she is experiencing." TRINI Cohen, RN September 29, 2024 2:33 PM [facility]05-27-2025 Miscellaneous Notes* Telephone Encounter - Stephanie Storm RN - 09/29/2024 2:32 PM EDT NEUROSURGERY CARE COORDINATION [place] QUICK NOTE See below response per REBEKA. Noted new Methocarbamol (Robaxin) prescription. Return Red Tricyclet message sent to patient by this RN, see KeyOwnerhart message for further details. No further action required by this RN at this time. Marv Pretty APRN.COUNSELING CASE MANAGER 09/29/24 1:56 PM Can increase Gabapentin to TID. Will reorder Robaxin. I do not think an opioid will help the type of pain she is experiencing." TRINI Cohen, RN September 29, 2024 2:33 PM * Telephone Encounter - Stephanie Storm RN - 09/29/2024 1:24 PM EDT NEUROSURGERY CARE COORDINATION [facility] QUICK NOTE Called patient at home/mobile phone number, verified name and , discussed below, states having 6/10 pain throughout day through low back, right buttocks, and right leg, states falling more d/t RLEpain, states feels "more stiff", states walking causes increased pain, states still having perinealnumbness and pressure and burning and states discussed with Dr. Everett on 09/[address] Santoted may be from [place] but states Dr. Everett placed pain management referral d/t these s/s and d/t possibility for spinal cord stimulator, states having BLE swelling, states already contacted PCP regarding swelling and states has appointment with PCP scheduled for Monday 10/02, states taking Gabapentin 600mg BID and states feels is helping but asking if should increase dose, states taking Diclofenac and states feels is not helping, asking if should take Percocet and/or Robaxin again, verified pharmacy, informed message will be sent to NSGY team and that response will be relayed afterwards via return Red Tricyclet message per patient request, states understanding. Routing to NSGY team. TRINI Cohen, RN September 29, 2024 1:40 PM * Telephone Encounter - Stephanie Storm RN - 09/29/2024 11:13 AM EDT NEUROSURGERY CARE COORDINATION [facility] QUICK NOTE Chart reviewed. Patient S/P Right MIS Approach to Bilateral L4/[address] Everett on 08/10. Noted most recent post-op appointment with Dr. Everett dated 09/22. Noted recent encounters. Attempted to call patient at home/mobile phone number, no answer. Message left on unidentified VM to return call to office when able, office phone number provided. TRINI Cohen, RN September 29, 2024 11:22 AM documented in this encounterK[facility]05-[facility]25 Telephone encounter Note * Telephone Encounter - Stephanie Storm RN - 09/29/2024 1:24 PM EDT NEUROSURGERY CARE COORDINATION [facility] QUICK NOTE Called patient at home/mobile phone number, verified name and , discussed below, states having 6/10 pain throughout day through low back, right buttocks, and right leg, states falling more d/t RLEpain, states feels "more stiff", states walking causes increased pain, states still having perinealnumbness and pressure and burning and states discussed with Dr. Everett on 09/[address] Burks may be from [place] but states Dr. Everett placed pain management referral d/t these s/s and d/t possibility for spinal cord stimulator, states having BLE swelling, states already contacted PCP regarding swelling and states has appointment with PCP scheduled for Monday 10/02, states taking Gabapentin 600mg BID and states feels is helping but asking if should increase dose, states taking Diclofenac and states feels is not helping, asking if should take Percocet and/or Robaxin again, verified pharmacy, informed message will be sent to NSGY team and that response will be relayed afterwards via return Red Tricyclet message per patient request, states understanding. Routing to NSGY team. TRINI Cohen, RN September 29, 2024 1:40 PM [facility]05-27-2025 Telephone encounter Note* Telephone Encounter - Faviola García - 09/29/2024 11:40 AM EDT Patient referred by Dr. Everett to Dr. Moreland for SCS eval. Attempted to reach patient to schedule an office visit with Dr. Moreland. Voicemail was full, unable to leave a message. [facility]05-27-2025 Miscellaneous Notes* Telephone Encounter - Faviola García - 09/29/2024 11:40 AM EDT Patient referred by Dr. Everett to Dr. Moreland for SCS eval. Attempted to reach patient to schedule an office visit with Dr. Moreland. Voicemail was full, unable to leave a message. documented in this encounterK[facility] Telephone encounter Note * Telephone Encounter - Stephanie Storm RN - 09/29/2024 11:19 AM EDT NEUROSURGERY CARE COORDINATION [place] QUICK NOTE See additional MyChart message encounter dated yesterday 09/28 for further information here. No further action required by this RN at this time. TRINI Cohen, RN September 29, 2024 11:19 AM [facility]05-27-2025 Miscellaneous Notes* Telephone Encounter - Stephanie Storm RN - 09/29/2024 11:19 AM EDT NEUROSURGERY CARE COORDINATION [place] QUICK NOTE See additional MyChart message encounter dated yester09/28 for further information here. No further action required by this RN at this time. TRINI Cohen, RN September 29, 2024 11:19 AM documented in this encounterK[facility] Telephone encounter Note * Telephone Encounter - Stephanie Storm RN - 09/29/2024 11:13 AM EDT NE[facility]OSURGERY CARE COORDIN[facility] [place] QUICK NOTE Chart reviewed. Patient S/P Right MIS Approach to Bilateral L4/[address] Everett on 08/10. Noted most recent post-op appointment with Dr. Everett dated 09/22. Noted recent encounters. Attempted to call patient at home/mobile phone number, no answer. Message left on unidentified VM to return call to office when able, office phone number provided. TRNII Cohen, RN September 29, 2024 11:22 AM [facility]05-09-2025 Note* Addendum Note - Stewart Franks PA-C - 09/11/2024 3:44 PM EDTAddended by: STEWART FRANKS on: 09/11/2024 03:44 PM Modules accepted: Orders [facility]05-09-2025 Miscellaneous Notes* Addendum Note - Stewart Franks PA-C - 09/11/2024 3:44 PM EDTAddended by: STEWART FRANKS on: 09/11/2024 03:44 PM Modules accepted: Orders documented in this encounterK[facility] Telephone encounter Note * Telephone Encounter - Stephanie Storm RN - 09/02/2024 1:15 PM EDT Images from the original note were not included. [facility]UR[facility] [place] QUICK NOTE See below response per REBEKA. Noted prescription. No further action required by this RN at this time. Satish Pace PA-C [facility] Nurse Nisha Medication refilled" TRINI Cohen, RN September 02, 2024 1:15 PM [facility]04-30-2025 Miscellaneous Notes* Telephone Encounter - Stephanie Storm RN - 09/02/2024 1:15 PM EDT Images from the original note were not included. NEUROSURGERY CARE COORDINATION [place] QUICK NOTE See below response per REBEKA. Noted prescription. No further action required by this RN at this time. Satish Pace PA-C [facility] [place] Nurse Nisha Medication refilled" TRINI Cohen, RN September 02, 2024 1:15 PM * Telephone Encounter - Stephanie Storm RN - 09/02/2024 11:15 AM EDT NEUROSURGERY CARE COORDINATION [place] QUICK NOTE Notified by Event Operations Manager that patient returned call to office at this time, call transferred to this RN, discussed all recent encounters, states having back pain but states feeling OK after fall, discussed continuing to monitor pain, discussed taking medications as prescribed/prn including Percocet & Robaxin, asking for refill for Percocet, informed message will be sent to NSGY team with Dr. Everett regarding this, states will scrap picker both Percocet & Robaxin, discussed taking OTC Tylenol prn and educated not to exceed 3,000mg of Acetaminophen in 24 hour period, discussed taking Gabapentin as prescribed, discussed use of ice and heat prn, discussed rest, instructed to contact office again if pain worsens or does not improve or prn, states surgical incision site OK, all questions answered, states understanding. Routing to NSGY team. TRINI Cohen, RN September 02, 2024 11:33 AM * Telephone Encounter - Stephanie Storm RN - 09/02/2024 10:59 AM EDT NEUROSURGERY CARE COORDINATION [place] QUICK NOTE Noted additional MyChart message encounter dated yesterday 09/01. Attempted to call patient at home/mobile phone number, no answer. Message left on unidentified VM to return call to office when able,office phone number provided. TRINI Cohen, RN September 02, 2024 10:59 AM * Telephone Encounter - Stephanie Storm RN - 09/01/2024 11:55 AM EDT NEUROSURGERY CARE COORDINATION [facility] QUICK NOTE Noted. Noted prescription. Noted additional KeyOwnerhart message encounter dated yesterday 08/31. Attempted to call patient at home/mobile phone number, no answer. Message left on unidentified VM to return call to office when able, office phone number provided. TRINI Cohen, MADY September 01, 2024 11:56 AM * Telephone Encounter - Juleitte Huston APRN.CNP - 09/01/2024 10:07 AM EDT Chart reviewed. Patient's request for medication is as follows: Requested Prescriptions Signed Prescriptions Disp Refills methocarbamol (ROBAXIN) 500 mg tablet 21 tablet 0 Sig: TAKE 1 TABLET BY MOUTH THREE TIMES A DAY NEEDED (MUSCLE SPASM) FOR UP TO 7 DAYS. Authorizing Provider: UJLIETTE HUSTON Prescription(s) as above. Please process accordingly. Juliette Huston APRN.COUNSELING CASE MANAGER * Telephone Encounter - Stephanie Storm RN - 09/01/2024 10:00 AM EDT Images from the original note were not included. NEUROSURGERY CARE COORDINATION [place] QUICK NOTE See below response per Dr. Everett's Event Operations Manager. Tracie Landrum [place] Nurse Nisha Called the patient-she stated that she needs the medication." Routing to NSGY team. TRINI Cohen, RN September 01, 2024 10:00 AM * Telephone Encounter - Stephanie Storm RN - 09/01/2024 8:37 AM EDT NEUROSURGERY CARE COORDINATION [facility] QUICK NOTE Chart reviewed. Patient S/P Right MIS Approach to Bilateral L4/[address] Everett on 08/10. Noted first post-op appointment with REBEKA dated 08/24. Reviewed Methocarbamol (Robaxin) prescription. Routing back to Dr. Everett's Event Operations Manager to call patient in order to inquire if refill needed at this time as refill request per pharmacy at this time. TRINI Cohen, RN September 01, 2024 8:38 AM * Telephone Encounter - Tracie Landrum - 09/01/2024 8:29 AM EDT Physician: Dr. Everett Call from patient requesting refill. Please E-Scribe Last OV: 2024 Future OV: 09/22/2024 Requested Prescriptions Pending Prescriptions Disp Refills methocarbamol (ROBAXIN) 500 mg tablet [Pharmacy Med Name: METHOCARBAMOL 500 MG TABLET] 21 tablet 0 Sig: TAKE 1 TABLET BY MOUTH THREE TIMES A DAY NEEDED (MUSCLE SPASM) FOR UP TO 7 DAYS. Pharmacy Name: [facility] Pharmacy Tracie Sparks documented in this encounterK[facility] History of Present illness Narrative* Stewart Franks PA-C - 09/02/2024 1:00 PM EDTAssociated Order(s): Large Joint Arthro/Inj: R knee joint Post-Procedure Diagnose(s): Primary osteoarthritis of right knee HISTORY OF PRESENT ILLNESS: Kvng is a 54 year old female. She is here for evaluation of Right knee pain. Patient was supposed to see me on 07/20 in [facility], however patient had an emergency event with hypotension that requires transport to nearby ED. Patient coming back in today for continued right knee pain. Today she states she has 7/10 intermittent sharp, radiating, aching, throbbing pain in the right knee for 6 months. She recently had spine surgery on August 10 and fell yesterday on left hip and buttock. Patient just finished medrol pack 2 days ago. MEDICATIONS Current Outpatient Medications on File Prior to Visit Medication Sig methocarbamol (ROBAXIN) 500 mg tablet TAKE 1 TABLET BY MOUTH THREE TIMES A DAY NEEDED (MUSCLE SPASM) FOR UP TO 7 DAYS. lidocaine (SALONPAS) 4 % patch APPLY ONE PATCH AT NIGHT AND LEAVE ON FOR 12 HOURS THEN REMOVE DURING THE DAY sertraline (ZOLOFT) 50 mg tablet 1 tablet every day by oral route. carvedilol (COREG) 25 mg tablet Take by mouth once daily. FREESTYLE LUIS MIGUEL 3 SENSOR wilbur CHANGE SENSOR EVERY 14 DAYS cholecalciferol, Vitamin D3, (VITAMIN D3) 1,250 mcg (50,000 unit) cap capsule Take 1 capsule by mouth one time a week. TRUE METRIX GLUCOSE TEST STRIP test strip use 1 TEST STRIP to TEST BLOOD SUGAR four times a day TRUE METRIX GLUCOSE METER as directed. TRUEPLUS LANCETS 30 gauge use 1 LANCET to TEST BLOOD SUGAR four times a day cholecalciferol (VITAMIN D3) 1,000 unit tab tablet Take 1 tablet by mouth every afternoon. tiZANidine (ZANAFLEX) 4 mg tablet Take 4 mg by mouth daily at bedtime. levothyroxine (SYNTHROID) 150 mcg tablet Take 1 tablet by mouth every afternoon. insulin lispro (HUMALOG KWIKPEN) 100 unit/mL inject 10 units subcutaneously three times a day aspirin, enteric coated (ASPIRIN, ENTERIC COATED) 81 mg EC tablet Take 81 mg by mouth once daily. omega-3 fatty acids/fish oil (FISH OIL-OMEGA-3 FATTY ACIDS) 300-1,000 mg cap Take by mouth. Aaozmufvwltrp-Nyfjfnvz-Viruli (MULTIVITAMIN 50 PLUS) tab Take 1 tablet by mouth once daily. Ascorbic Acid (VITAMIN C) 1,000 mg tablet Take 1,000 mg by mouth once daily. diroximel fumarate (VUMERITY) 231 mg capsule, delayed release Take 462 mg by mouth two times a day. hydroCHLOROthiazide 25 mg tablet Take 12.5 mg by mouth once daily. rosuvastatin (CRESTOR) 5 mg tablet Take 5 mg by mouth once daily. insulin glargine (LANTUS SOLOSTAR U-100 INSULIN) 100 unit/mL (3 mL) Inject 32 Units subcutaneously every morning. gabapentin (NEURONTIN) 300 mg capsule Take 600 mg by mouth two times a day. losartan (COZAAR) 50 mg tablet Take 50 mg by mouth two times a day. acetaminophen (TYLENOL) 500 mg tablet Take 1 tablet by mouth every 6 hours as needed. No current facility-administered medications on file prior to visit. ALLERGIES ALLERGIES Allergen Reactions Codeine Anaphylaxis, Other: See Comments Erythromycin Rash, Swelling Toradol [Ketorolac] Itching Given with Vicodin at the time of the reaction. Vicodin [Hydrocodon* Itching Given with Toradol at the time of the reaction. 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[facility]) Depression Diabetes mellitus, type 2 ([facility]) DVT, lower extremity ([facility]) Essential hypertension History of myocardial infarction due to atherothrombotic coronary artery disease Hypothyroidism Malfunction of electrode lead of cardiac pacemaker atrial lead Mixed hyperlipidemia MS (multiple sclerosis) ([facility]) Multiple sclerosis ([facility]) Presence of cardiac pacemaker [employer] dual-chamber MRI conditional pacemaker system implanted 02/06/2021 for second degree AV block; system extracted (removed) 09/11/2023 due to lead malfunction; new Medtronic dual-chamber pacemaker system reimplanted (system will be MRI conditional after 6 weeks post implant) PVC (premature ventricular contraction) RA (rheumatoid arthritis) ([facility]) 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 Baer on 09/11/2023. Systemic lupus erythematosus (HCC) PAST SURGICAL HISTORY PAST SURGICAL HISTORY Procedure Laterality Date BASIC PACEMAKER DUAL CHAMBER Left 02/06/2021 [employer] dual-chamber MRI conditional pacemaker system implanted for second degree AV block BASIC PACEMAKER DUAL CHAMBER Left 09/11/2023 [employer]onic dual-chamber pacemaker system implant; RV septal lead, paced QRS duration 108 ms; system will be MRI conditional after 6 weeks post implant; CCAG Dr. Baer ECHOCARDIOGRAM 08/02/2023 [facility]; see scanned documents LAPAROSCOPY SURG CHOLECYSTECTOMY Cholecystectomy, lap NEUROPLASTY &/TRANSPOS MEDIAN NRV CARPAL TUNNE Carpal tunnel decomp PACEMAKER - REMOVAL/REPOSITION LEAD DUAL Left 09/11/2023 [employer] dual-chamber pacemaker system extraction (removal); CLAUDIAG Dr. Baer PAST SURGICAL HISTORY OF uterine ablation TONSILLECTOMY PRIMARY/SECONDARY <AGE 12 Tonsillectomy TOTAL ABDOMINAL HYSTERECT W/WO RMVL TUBE OVARY Hysterectomy, SHADY SOCIAL HISTORY Tobacco: Ex-smoker FAMILY HISTORY Does a similar condition to what you are experiencing run in your family? No REVIEW OF SYSTEMS: All other systems negative. PHYSICAL EXAM: PE: All other systems deferred. GENERAL: Appears healthy, well-nourished, no deformities. HABITUS: Morbidly obese Gait: Antalgic to the right and Ambulatory Aid: a cane Right: Alignment: Varus deformity, Correctable Range of motion is 0 degrees in extension and 110 degrees of flexion. Extension La degrees Pain with ROM: Yes Effusion: Slight Tender to the palpation of Medial femoral condyle and Medial joint line Pain with patellar compression: Yes Stability: Anterior/Posterior stable and Varus/Valgus stable Hip Exam: flexion to 100+ degrees, full extension, internal/external rotation adequate, and no painwith log roll Neurovascular Status: Sensation Intact, Moves foot and ankle up & down, and 2+ dorsalis pedis Strength: 5 Skin: Normal RADIOGRAPHS (personally reviewed): Severe right knee osteoarthritis predominantly medial compartment with [id number] articulation. MRI: None DIAGNOSIS Encounter Diagnosis ICD-10-CM 1. Primary osteoarthritis of right knee M17.11 PLAN Patient has right knee osteoarthritis. Treatment options were discussed today. We decided on right knee cortisone injection today. Patient is a diabetic on insulin so she will watch her sugars more closely. Follow up as needed for knee pain. I spent a total of approximately 30 minutes on the date of the service which included preparing to see the patient, vkjf-tz-soth patient care, completing clinical documentation, obtaining and/or reviewing separately obtained history, performing a medically appropriate examination, counseling and educating the patient/family/caregiver, ordering medications, tests, or procedures, communicating withother HCPs (not separately reported), independently interpreting results (not separately reported),communicating results to the patient/family/caregiver, and care coordination (not separately reported). PROCEDURE: Large Joint Arthro/Inj: R knee joint 09/02/2024 1:39 PM The procedure site was prepped in the usual sterile fashion. Site: R knee joint Medications: 40 mg triamcinolone acetonide 40 mg/mL Anesthetics: 3 mL lidocaine (PF) 10 mg/mL (1 %) Outcome: Tolerated well, no immediate complications Post-injection instructions were reviewed with the patient and the patient voiced understanding of these instructions. Informed Consent Consent Obtained: Verbal Sarah Ann Protocol A moment to CARE was completed. SIGN IN Personnel directly involved with the procedure wore the appropriate PPE. Special Equipment: N/A Patient/Surrogate Stated/Verified: Patient name, Date of , Relevant allergies and Intended procedure TIME OUT Relevant labs, photos, and/or imaging studies have been reviewed. Intended patient and procedure match source documents. Consent obtained and matches the intended procedure. Correct side/site marked and visible. Medications required for procedure verified. No fire risk assessment and interventions applicable. No implant(s) inserted. SIGN OUT No specimen collected. All instruments, equipment, possible retained foreign bodies accounted for. The post-procedure POC has been communicated to the patient or surrogate. No post-procedure POC communication to the patient's multidisciplinary team (including the bedside nurse for hospitalized patients) applicable. Stewart Franks PA-C documented in this encounterK[facility]25 NoteHNO ID: [id number] Author: STEWART FRANKS PA-C Service: ? Author Type: Physician Home Care Rn Type: Progress Notes Filed: 09/02/2024 13:40 Note Text: HISTORY OF PRESENT ILLNESS: Kvng is a 54 year old female. She is here for evaluation of Right knee pain. Patient was supposed to see me on 07/20 in [facility], however patient had an emergency event with hypotension that requires transport to nearby ED. Patient coming back in today for continued right knee pain. Today she states she has 7/10 intermittent sharp, radiating, aching, throbbing pain in the right knee for 6 months. She recently had spine surgery on August 10 and fell yesterday on left hip and buttock. Patient just finished medrol pack 2 days ago. MEDICATIONS Current Outpatient Medications on File Prior to Visit Medication Sig methocarbamol (ROBAXIN) 500 mg tablet TAKE 1 TABLET BY MOUTH THREE TIMES A DAY NEEDED (MUSCLE SPASM) FOR UP TO 7 DAYS. lidocaine (SALONPAS) 4 % patch APPLY ONE PATCH AT NIGHT AND LEAVE ON FOR 12 HOURS THEN REMOVE DURING THE DAY sertraline (ZOLOFT) 50 mg tablet 1 tablet every day by oral route. carvedilol (COREG) 25 mg tablet Take by mouth once daily. FREESTYLE LUIS MIGUEL 3 SENSOR wilbur CHANGE SENSOR EVERY 14 DAYS cholecalciferol, Vitamin D3, (VITAMIN D3) 1,250 mcg (50,000 unit) cap capsule Take 1 capsule by mouth one time a week. TRUE METRIX GLUCOSE TEST STRIP test strip use 1 TEST STRIP to TEST BLOOD SUGAR four times a day TRUE METRIX GLUCOSE METER as directed. TRUEPLUS LANCETS 30 gauge use 1 LANCET to TEST BLOOD SUGAR four times a day cholecalciferol (VITAMIN D3) 1,000 unit tab tablet Take 1 tablet by mouth every afternoon. tiZANidine (ZANAFLEX) 4 mg tablet Take 4 mg by mouth daily at bedtime. levothyroxine (SYNTHROID) 150 mcg tablet Take 1 tablet by mouth every afternoon. insulin lispro (HUMALOG KWIKPEN) 100 unit/mL inject 10 units subcutaneously three times a day aspirin, enteric coated (ASPIRIN, ENTERIC COATED) 81 mg EC tablet Take 81 mg by mouth once daily. omega-3 fatty acids/fish oil (FISH OIL-OMEGA-3 FATTY ACIDS) 300-1,000 mg cap Take by mouth. Xhoqxqhliydpe-Cyvvzdjp-Tssupy (MULTIVITAMIN 50 PLUS) tab Take 1 tablet by mouth once daily. Ascorbic Acid (VITAMIN C) 1,000 mg tablet Take 1,000 mg by mouth once daily. diroximel fumarate (VUMERITY) 231 mg capsule, delayed release Take 462 mg by mouth two times a day. hydroCHLOROthiazide 25 mg tablet Take 12.5 mg by mouth once daily. rosuvastatin (CRESTOR) 5 mg tablet Take 5 mg by mouth once daily. insulin glargine (LANTUS SOLOSTAR U-100 INSULIN) 100 unit/mL (3 mL) Inject 32 Units subcutaneously every morning. gabapentin (NEURONTIN) 300 mg capsule Take 600 mg by mouth two times a day. losartan (COZAAR) 50 mg tablet Take 50 mg by mouth two times a day. acetaminophen (TYLENOL) 500 mg tablet Take 1 tablet by mouth every 6 hours as needed. No current facility-administered medications on file prior to visit. ALLERGIES ALLERGIES Allergen Reactions Codeine Anaphylaxis, Other: See Comments Erythromycin Rash, Swelling Toradol [Ketorolac] Itching Given with Vicodin at the time of the reaction. Vicodin [Hydrocodon* Itching Given with Toradol at the time of the reaction. 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[facility]) Depression Diabetes mellitus, type 2 ([facility]) DVT, lower extremity ([facility]) Essential hypertension History of myocardial infarction due to atherothrombotic coronary artery disease Hypothyroidism Malfunction of electrode lead of cardiac pacemaker atrial lead Mixed hyperlipidemia MS (multiple sclerosis) ([facility]) Multiple sclerosis ([facility]) Presence of cardiac pacemaker [employer] dual-chamber MRI conditional pacemaker system implanted 02/06/2021 for second degree AV block; system extracted (removed) 09/11/2023 due to lead malfunction; new [employer] dual-chamber pacemaker system reimplanted (system will be MRI conditional after 6 weeks post implant) PVC (premature ventricular contraction) RA (rheumatoid arthritis) ([facility]) 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 Baer on 09/11/2023. Systemic lupus erythematosus (HCC) PAST SURGICAL HISTORY PAST SURGICAL HISTORY Procedure Later (more content not included)...[facility] 09-02-2024 Telephone encounter Note* Telephone Encounter - Stephanie Storm RN - 09/02/2024 11:15 AM EDT NEUROSURGERY CARE COORDINATION [place] QUICK NOTE Notified by Event Operations Manager that patient returned call to office at this time, call transferred to this RN, discussed all recent encounters, states having back pain but states feeling OK after fall, discussed continuing to monitor pain, discussed taking medications as prescribed/prn including Percocet & Robaxin, asking for refill for Percocet, informed message will be sent to NSGY team with Dr. Everett regarding this, states will scrap picker both Percocet & Robaxin, discussed taking OTC Tylenol prn and educated not to exceed 3,000mg of Acetaminophen in 24 hour period, discussed taking Gabapentin as prescribed, discussed use of ice and heat prn, discussed rest, instructed to contact office again if pain worsens or does not improve or prn, states surgical incision site OK, all questions answered, states understanding. Routing to NSGY team. TRINI Cohen, RN September 02, 2024 11:33 AM [facility]04-30-2025 Telephone encounter Note* Telephone Encounter - Stephanie Storm RN - 09/02/2024 10:59 AM EDT NEUROSURGERY CARE COORDINATION [place] QUICK NOTE Noted additional MyChart message encounter dated yesterday 09/01. Attempted to call patient at home/mobile phone number, no answer. Message left on unidentified VM to return call to office when able,office phone number provided. TRINI Cohen, RN September 02, 2024 10:59 AM [facility]04-30-2025 Telephone encounter Note* Telephone Encounter - Stephanie Storm RN - 09/02/2024 10:13 AM EDT NEUROSURGERY CARE COORDINATION [place] QUICK NOTE Noted. See telephone encounter dated 08/31 for further information here. No further action requiredby this RN at this time. TRINI Cohen, RN September 02, 2024 10:13 AM [facility]04-30-2025 Miscellaneous Notes* Telephone Encounter - Stephanie Storm RN - 09/02/2024 10:13 AM EDT NEUROSURGERY CARE COORDINATION [facility] QUICK NOTE Noted. See telephone encounter dated 08/31 for further information here. No further action requiredby this RN at this time. TRINI Cohen, RN September 02, 2024 10:13 AM documented [facility]25 Telephone encounter Note * Telephone Encounter - Stephanie Storm RN - 09/01/2024 11:55 AM EDT NEUROSURGERY CARE COORDINATION [facility] QUICK NOTE Noted. Noted prescription. Noted additional KeyOwnerhart message encounter dated yester08/31. Attempted to call patient at home/mobile phone number, no answer. Message left on unidentified VM to return call to office when able, office phone number provided. TRINI Cohen, RN September 01, 2024 11:56 AM [facility]04-29-2025 Telephone encounter Note* Telephone Encounter - Stephanie Storm RN - 09/01/2024 11:54 AM EDT NEUROSURGERY CARE COORDINATION [facility] QUICK NOTE Noted. See additional refill encounter dated yester08/31 for further information here. No further action required by this RN at this time. TRINI Cohen, RN September 01, 2024 11:54 AM [facility]04-29-2025 Miscellaneous Notes* Telephone Encounter - Stephanie Storm RN - 09/01/2024 11:54 AM EDT NEUROSURGERY CARE COORDINATION [facility] QUICK NOTE Noted. See additional refill encounter dated yester08/31 for further information here. No further action required by this RN at this time. TRINI Cohen, MADY September 01, 2024 11:54 AM documented in this encounterK[facility]04-29-2025 Telephone encounter Note * Telephone Encounter - Juliette Huston APRN.CNP - 09/01/2024 10:07 AM EDT Chart reviewed. Patient's request for medication is as follows: Requested Prescriptions Signed Prescriptions Disp Refills methocarbamol (ROBAXIN) 500 mg tablet 21 tablet 0 Sig: TAKE 1 TABLET BY MOUTH THREE TIMES A DAY NEEDED (MUSCLE SPASM) FOR UP TO 7 DAYS. Authorizing Provider: JULIETTE HUSTON Prescription(s) as above. Please process accordingly. Juliette Huston APRN.COUNSELING CASE MANAGER [facility]04-29-2025 Telephone encounter Note* Telephone Encounter - Stephanie Storm RN - 09/01/2024 10:00 AM EDT Images from the original note were not included. NEUROSURGERY CARE COORDINATION [facility] QUICK NOTE See below response per Dr. Everett's Event Operations Manager. Tracie Landrum [place] Nurse Nisha Called the patient-she stated that she needs the medication." Routing to NSGY team. TRINI Cohen, MADY September 01, 2024 10:00 AM [facility]04-29-20[facility] Telephone encounter Note* Telephone Encounter - Stephanie Storm RN - 09/01/2024 8:37 AM EDT NEUROSURGERY CARE COORDINATION [facility] QUICK NOTE Chart reviewed. Patient S/P Right MIS Approach to Bilateral L4/[address] Everett on 08/10. Noted first post-op appointment with REBEKA dated 08/24. Reviewed Methocarbamol (Robaxin) prescription. Routing back to Dr. Everett's Event Operations Manager to call patient in order to inquire if refill needed at this time as refill request per pharmacy at this time. TRINI Cohen, RN September 01, 2024 8:38 AM [facility]04-29-[facility] Telephone encounter Note* Telephone Encounter - Tracie Landrum - 09/01/2024 8:29 AM EDT Physician: Dr. Everett Call from patient requesting refill. Please E-Scribe Last OV: 2024 Future OV: 09/22/2024 Requested Prescriptions Pending Prescriptions Disp Refills methocarbamol (ROBAXIN) 500 mg tablet [Pharmacy Med Name: METHOCARBAMOL 500 MG TABLET] 21 tablet 0 Sig: TAKE 1 TABLET BY MOUTH THREE TIMES A DAY NEEDED (MUSCLE SPASM) FOR UP TO 7 DAYS. Pharmacy Name: [facility] Pharmacy Tracie Sparks [facility]04-21-2025 NoteHNO ID: [id number] Author: SATISH PACE PA-C Service: ? Author Type: Physician Home Care Rn Type: Progress Notes Filed: 2024 12:04 Note Text: SPINE SURGERY FOLLOW UP This is an in-person visit. SERVICE DATE: 2024 SURGERY DATE: 08/10/24 Kvng Landry is seen for 2 week post operative follow up s/p right L4/[address] Everett. Patient states today she has increased pain in right thigh stopping just above the knee. Patient states it is becoming difficult to walk due to pain. She denies any new numbness or weakness. She denies any issues with her incision. Patient has no other acute complaints or concerns at this time. PAIN EVALUATION 08/18/2024 1128 Pain Location: Back-Lower Description: Aching;Sore Frequency: Intermittent Intervention/Comfort measure: Medication;Cold;Pillow support;Positioning Patient Entered Questionnaires 03/30/2024 04/16/2024 08/18/2024 Spine Questions Pain Location: Lower back Lower back Lower back Pain Duration: 1 to 5 years Pain over last 6 months: Every day or nearly every day in the past 6 months Symptoms from neck/cervical spine: No No No Employment Status: Other Off work 1 month or more due to back/neck pain: Yes Applied for/receive disability/WC due to low back/neck pain Yes Involved in law suit/legal claim: No PROMIS Score Percentiles 03/30/2024 08/18/2024 Physical Health Physical Function Percentile 1 4 Sleep Percentile 10 10 Fatigue Percentile 4 4 Pain Interference Percentile 1 0 03/30/2024 08/18/2024 PROMIS SOCIAL ROLE SCORE Social Role Satisfaction Percentile 1 1 03/30/2023 03/30/2024 07/25/2024 PROMIS Global Health Scale Physical Health Percentile 7 2 7 Mental Health Percentile 5 5 13 Patient-reported Percentiles provide an indication of how the patient's score ranks in relation to the general population. Higher percentile rankings indicate better function/quality of life. 50th percentile is the average of the general population and indicates half of respondents had a worse score. Descriptive Summary for PROMIS Physical Function T-score = 33 (Percentile 4) Much difficulty - Carry a laundry basket up a flight of stairs. Some difficulty - Walk at a normal speed. Unable - Walk more than a mile (1.6 km). PHYSICAL EXAM: BP 146/91 Pulse 85 Resp 20 Wt 112.4 kg (247 lb 12.8 oz) LMP 08/08/2006 SpO2 98% BMI 46.48 kg/m? General: Awake, alert and in no acute distress. Patient is pleasant and cooperative Motor: LE Hip Flex Knee Flex Knee Extend Plantarflex Dorsiflex R 5/5 5/5 5/5 5/5 5/5 L 5/5 5/5 5/5 5/5 5/5 Neuro: Sensation to light touch intact of B/L lower extremities Wound: Appropriate post operative wound located in lower back. Incision appears well approximated with glue. No signs of erythema, fluctuance, blood/mucoid discharge, wound appears CDI. DATA REVIEW [facility] records independently reviewed ASSESSMENT/PLAN (M48.062) Spinal stenosis, lumbar region with neurogenic claudication (primary encounter diagnosis) Kvng Landry is seen for 2 week post operative follow up s/p right L4/[address] Everett. - Patient doing well - Discussed healing expectations - Discussed increasing activity - Medications refilled: yes - Start medrol dose pack - Imaging ordered: No - Follow up as previously scheduled SIGNATURE: Satish Pace PA-C PATIENT NAME: Kvng Landry DATE: 2024 TIME: 11:26 AM PAGER:[facility]04-21-2025 History of Present illness Narrative* Satish Pace PA-C - 2024 11:24 AM EDT Images from the original note were not included. SPINE SURGERY FOLLOW UP This is an in-person visit. SERVICE DATE: 2024 SURGERY DATE: 08/10/24 Kvng Landry is seen for 2 week post operative follow up s/p right L4/[address] Everett. Patient states today she has increased pain in right thigh stopping just above the knee. Patient states it is becoming difficult to walk due to pain. She denies any new numbness or weakness. She denies any issues with her incision. Patient has no other acute complaints or concerns at this time. PAIN EVALUATION 08/18/2024 1128 Pain Location: Back-Lower Description: Aching;Sore Frequency: Intermittent Intervention/Comfort measure: Medication;Cold;Pillow support;Positioning Patient Entered Questionnaires 03/30/2024 04/16/2024 08/18/2024 Spine Questions Pain Location: Lower back Lower back Lower back Pain Duration: 1 to 5 years Pain over last 6 months: Every day or nearly every day in the past 6 months Symptoms from neck/cervical spine: No No No Employment Status: Other Off work 1 month or more due to back/neck pain: Yes Applied for/receive disability/WC due to low back/neck pain Yes Involved in law suit/legal claim: No PROMIS Score Percentiles 03/30/2024 08/18/2024 Physical Health Physical Function Percentile 1 4 Sleep Percentile 10 10 Fatigue Percentile 4 4 Pain Interference Percentile 1 0 03/30/2024 08/18/2024 PROMIS SOCIAL ROLE SCORE Social Role Satisfaction Percentile 1 1 03/30/2023 03/30/202407/2507/25/2024 PROMIS Global Health Scale Physical Health Percentile 7 2 7 Mental Health Percentile 5 5 13 Patient-reported Percentiles provide an indication of how the patient's score ranks in relation to the general population. Higher percentile rankings indicate better function/quality of life. 50th percentile is the average of the general population and indicates half of respondents had a worse score. Descriptive Summary for PROMIS Physical Function T-score = 33 (Percentile 4) Much difficulty - Carry a laundry basket up a flight of stairs. Some difficulty - Walk at a normal speed. Unable - Walk more than a mile (1.6 km). PHYSICAL EXAM: BP 146/91 Pulse 85 Resp 20 Wt 112.4 kg (247 lb 12.8 oz) LMP 08/08/2006 SpO2 98% BMI 46.48 kg/m General: Awake, alert and in no acute distress. Patient is pleasant and cooperative Motor: LE Hip Flex Knee Flex Knee Extend Plantarflex Dorsiflex R 5/5 5/5 5/5 5/5 5/5 L 5/5 5/5 5/5 5/5 5/5 Neuro: Sensation to light touch intact of B/L lower extremities Wound: Appropriate post operative wound located in lower back. Incision appears well approximated with glue. No signs of erythema, fluctuance, blood/mucoid discharge, wound appears CDI. DATA REVIEW [facility] records independently reviewed ASSESSMENT/PLAN (M48.062) Spinal stenosis, lumbar region with neurogenic claudication (primary encounter diagnosis) Kvng Landry is seen for 2 week post operative follow up s/p right L4/[address] Everett. - Patient doing well - Discussed healing expectations - Discussed increasing activity - Medications refilled: yes - Start medrol dose pack - Imaging ordered: No - Follow up as previously scheduled SIGNATURE: Satish Pace PA-C PATIENT NAME: Kvng Landry DATE: 2024 TIME: 11:26 AM PAGER: documented in this encounterK[facility]04-[facility]-2025 Miscellaneous Notes* Telephone Encounter - Stephanie Storm RN - 08/21/2024 8:49 AM EDT NEUROSURGERY CARE COORDINATION [facility] QUICK NOTE Chart reviewed. Patient S/P Right MIS Approach to Bilateral L4/[address] Everett on 08/10. Noted first post-op appointment scheduled with REBEKA for 08/24. Reviewed Methocarbamol (Robaxin) prescription. Routing to NSGY team. TRINI Cohen, MADY August 21, 2024 8:52 AM * Telephone Encounter - Tracie Landrum - 08/21/2024 8:15 AM EDT Physician: Dr. Everett Call from patient requesting refill. Please E-Scribe Last OV: 08/10/2024 Future OV: 2024 Requested Prescriptions Pending Prescriptions Disp Refills methocarbamol (ROBAXIN) 500 mg tablet 21 tablet 0 Sig: Take 1 tablet by mouth three times a day as needed (Muscle spasm) for up to 7 days. Pharmacy Name: [facility] Tracie Sparks documented in this encounterK[facility]04-18-2025 Telephone encounter Note * Telephone Encounter - Stephanie Storm RN - 08/21/2024 8:49 AM EDT NEUROSURGERY CARE COORDINATION [facility] QUICK NOTE Chart reviewed. Patient S/P Right MIS Approach to Bilateral L4/[address] Everett on 08/10. Noted first post-op appointment scheduled with REBEKA for 08/24. Reviewed Methocarbamol (Robaxin) prescription. Routing to NSGY team. TRINI Cohen, MADY August 21, 2024 8:52 AM [facility]04-18-2025 Telephone encounter Note* Telephone Encounter - Tracie Landrum - 08/21/2024 8:15 AM EDT Physician: Dr. Everett Call from patient requesting refill. Please E-Scribe Last OV: 08/10/2024 Future OV: 2024 Requested Prescriptions Pending Prescriptions Disp Refills methocarbamol (ROBAXIN) 500 mg tablet 21 tablet 0 Sig: Take 1 tablet by mouth three times a day as needed (Muscle spasm) for up to 7 days. Pharmacy Name: [facility] Tracie Sparks [facility]04-11-2025 NoteHNO ID: [id number] Author: SHAWN EVERETT MD Service: ? Author Type: Physician Type: Progress Notes Filed: 08/14/2024 19:45 Note Text: I called the patient who reports she?s doing well after surgery. She still has some pain. She is unfortunately taking scheduled oxycodone. I recommended against that. We came up with a plan to do scheduled muscle relaxants and diclofenac. I advised to only take the oxycodone for breakthrough pain. We will send a prescription for Robaxin to her pharmacy.[facility]04-07-2025 NoteHNO ID: [id number] Author: ABIMBOLA TALAMANTES RN Service: Nursing Author Type: Registered Nurse Type: Nursing Progress Note Filed: 08/10/2024 15:37 Note Text: [id number] Received pt from OR. Resting comfortably in bed. No s/s of distress. 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 and care water team leader Staffing Anesthesiologist: Marcel Phelps MD ICE CREAM MACHINE OPERATOR: Deidre Moore APRN.ICE CREAM MACHINE OPERATOR Performed by: ICE CREAM MACHINE OPERATOR Indications and Patient Condition Indications for airway management: anesthesia and airway protection Preoxygenated: yes anesthesia circuit Patient position: sniffing Method: asleep Cricoid Pressure: No Manual In-Line Stabilization: No Difficult Mask: No Final Airway Details Final airway type: endotracheal airway Final Endotracheal Airway: ETT Cuffed: yes Successful intubation technique: video laryngoscopy Devices used: Glidescope and intubating stylet Endotracheal tube insertion site: oral Blade size: #3 ETT size (mm): 7.0 Measured from: lips Measurement (cm): 22 Placement verified by: capnometry Cormack-Lehane Classification: grade I - full view of glottis Number of attempts at approach: 1 Failed airway: no Unrecognized esophageal intubation: no Airway not difficult SIGNATURE: Deidre Moore APRN.CRNA PATIENT NAME: Kvng Landry DATE: August 10, 2024 TIME: 2:16 PM CSN: [id number] Telephone encounter Note* Telephone Encounter - Stephanie Storm RN - 08/06/2024 10:44 AM EDT NEUROSURGERY CARE COORDINATION [facility] QUICK NOTE Patient scheduled for Right L4/[address] Everett for Thursday 08/10 at [facility]. Called patient at home/mobile phone number, verified name and , discussed patient's MyChart message, discussed taking Gabapentin, Tizanidine, and Tylenol as prescribed/prn, discussed use of ice and heat prn, discussed contacting PCP and/or provider managing Gabapentin, states is [place] provider, regarding ordering another medication as necessary or in order to discuss increasing Gabapentin dosage,informed Dr. Everett and NSGY team will prescribe and manage pain medication for pain control after surgery, all questions answered, states understanding, denies needing anything further, instructed tocontact office again as needed. No further action required by this RN at this time. TRINI Cohen, RN August 06, 2024 10:55 AM [facility]04-03-2025 Miscellaneous Notes* Telephone Encounter - Stephanie Storm RN - 08/06/2024 10:44 AM EDT NEUROSURGERY CARE COORDINATION [facility] QUICK NOTE Patient scheduled for Right L4/[address] Everett for Thursday 08/10 at [facility]. Called patient at home/mobile phone number, verified name and , discussed patient's MyChart message, discussed taking Gabapentin, Tizanidine, and Tylenol as prescribed/prn, discussed use of ice and heat prn, discussed contacting PCP and/or provider managing Gabapentin, states is [place] provider, regarding ordering another medication as necessary or in order to discuss increasing Gabapentin dosage,informed Dr. Everett and NSGY team will prescribe and manage pain medication for pain control after surgery, all questions answered, states understanding, denies needing anything further, instructed tocontact office again as needed. No further action required by this RN at this time. TRINI Cohen, RN August 06, 2024 10:55 AM documented in this encounterK[facility]04-[facility]-2025 Evaluation note* Diagnosis Onset Date Resolution Status Admit Date Paroxysmal atrial fibrillation acute August 06, 2024 8:12am Preop cardiovascular exam acute August 06, 2024 8:12am Coronary-myocardial bridge chronic August 06, 2024 8:12am Essential (primary) hypertension chronic August 06, 2024 8:12am History of permanent cardiac pacemaker placement February 06, 2021 chronic August 06, 2024 8:12am Hyperlipidemia chronic August 06, 2024 8:12am [employer] Work Phone: 1(729) 263-680704-03-2025 Evaluation note* Diagnosis Onset Date Resolution Status Admit Date Paroxysmal atrial fibrillation acute August 06, 2024 8:12am Preop cardiovascular exam acute August 06, 2024 8:12am Coronary-myocardial bridge chronic August 06, 2024 8:12am Essential (primary) hypertension chronic August 06, 2024 8:12am History of permanent cardiac pacemaker placement February 06, 2021 chronic August 06, 2024 8:12am Hyperlipidemia chronic August 06, 2024 8:12am Paroxysmal atrial fibrillation acute November 11, 2024 1:08pm Coronary-myocardial bridge chronic November 11, 2024 1:08pm Essential (primary) hypertension chronic November 11, 2024 1:08pm History of permanent cardiac pacemaker placement February 06, 2021 chronic November 11, 2024 1:08pm Hyperlipidemia chronic November 11, 2024 1:08pm [facility] [employer] [facility] Work Phone: 1(743) 663-872604-03-2025 Evaluation note* Diagnosis Onset Date Resolution Status Admit Date Preop cardiovascular exam acute August 06, 2024 8:12am Coronary-myocardial bridge chronic August 06, 2024 8:12am Essential (primary) hypertension chronic August 06, 2024 8:12am History of permanent cardiac pacemaker placement February 06, 2021 chronic August 06, 2024 8:12am Hyperlipidemia chronic August 06, 2024 8:12am Paroxysmal atrial fibrillation resolved August 06, 2024 8:12am Mobitz type 2 second degree AV block acute November 11, 2024 1:01pm History of permanent cardiac pacemaker placement February 06, 2021 chronic November 11, 2024 1:01pm Leg swelling acute November 11 1:08pm Coronary-myocardial bridge chronic November 11, 2024 1:08pm Essential (primary) hypertension chronic November 11, 2024 1:08pm History of permanent cardiac pacemaker placement February 06, 2021 chronic November 11, 2024 1:08pm Hyperlipidemia chronic November 11, 2024 1:08pm Paroxysmal atrial fibrillation resolved November 11, 2024 1:08pm [facility] [employer] [facility] Work Phone: 1(517) 715-233904-02-2025 Telephone encounter Note* Telephone Encounter - Stephanie Storm RN - 08/05/2024 2:35 PM EDT NEUROSURGERY CARE COORDINATION [facility] QUICK NOTE Noted. No further action required by this RN at this time. TRINI Cohen, RN August 05, 2024 2:36 PM [facility]04-02-2025 Miscellaneous Notes* Telephone Encounter - Stephanie Storm RN - 08/05/2024 2:35 PM EDT NEUROSURGERY CARE COORDINATION [facility] QUICK NOTE Noted. No further action required by this RN at this time. TRINI Cohen, RN August 05, 2024 2:36 PM * Telephone Encounter - Stephanie Storm RN - 08/05/2024 1:19 PM EDT NEUROSURGERY CARE COORDINATION [facility] QUICK NOTE Noted. Chart reviewed. Patient scheduled for Right L4/[address] Everett for at [facility]. Routing to Dr. Everett. TRINI Cohen, MADY August 05, 2024 1:20 PM documented in this encounterK[facility]04-02-2025 Telephone encounter Note * Telephone Encounter - Stephanie Storm RN - 08/05/2024 1:19 PM EDT NEUROSURGERY CARE COORDINATION [facility] QUICK NOTE Noted. Chart reviewed. Patient scheduled for Right L4/[address] Everett for at [facility]. Routing to Dr. Everett. TRINI Cohen, MADY August 05, 2024 1:20 PM [facility]04-02-2025 Telephone encounter Note* Telephone Encounter - Sisi Truong LPN - 08/05/2024 11:41 AM EDT Clearance Letter faxed to Dr. Giovanni Ji's office per Mae Lopez TUNGSTEN TENDER request . Receipt obtained [facility]04-02-2025 Miscellaneous Notes* Telephone Encounter - Sisi Truong LPN - 08/05/2024 11:41 AM EDT Clearance Letter faxed to Dr. Giovanni Ji's office per Mae Lopez TUNGSTEN TENDER request . Receipt obtained * Telephone Encounter - Talisha Hicks - 08/03/2024 10:33 AM EDT Patient called back stating that she was able to get an appointment with [facility]. She will need a clearance form faxd to [phone]. Her appointment is 08/06 @ 830am with Dr Giovanni Ji * Telephone Encounter - Talisha Hicks - 08/03/2024 9:50 AM EDT Patient called stating that Dhaval Licona's office called and cancelled her appointment. They statedthat they can not give her clearance, that she will need to see her regular Psych Therapist. She triedcalling other offices, but no one will see her. Her Surgery is on August 10 documented in this encounterK[facility]03-31-2025 Telephone encounter Note * Telephone Encounter - Stephanie Storm RN - 08/03/2024 4:08 PM EDT NEUROSURGERY CARE COORDINATION [facility] PRE-OP EDUCATION TELEPHONE CALL Patient scheduled for Right L4/[address] Everett for Thursday 08/10 at [facility]. Noted medical clearance pending cardiology clearance, noted telephone encounters dated today 08/03 with further information regarding this, this RN to f/u with this, and noted financial clearance obtained. Called patient at home/mobile phone number, name and verified. Spoke with patient Kvng Landry for pre-op education. Given both written and verbal instructions regarding: pre-op skin preparation and post-op pain management, wound care, and restrictions. Provided to patient and discussed the following education materials and supplies: Map of [facility] 1st Floor, Spine Surgery Pre-/Post-Op Instructions, Skin Preparation & NPO Instructionsincluding Hibiclens & CHG wipes, Pain Management After Spine Surgery, Smoking & Spine Surgery, Nearby Accommodations List, Preparing for Post-Acute Care Instructions, and Preparing for Surgery Card? Yes. Patient states has Hibiclens soap. Discussed recommendation and provided education material to have Advance Directives completed? Yes.Provided [facility] Healthcare Power of Net Architect form? No. Provided [facility] Living Will form? No. Does patient already have forms completed and scanned into system or were forms scanned during this visit? No. Reviewed with patient to have pre-testing done within 30 days of scheduled surgery and phone numberprovided to call and schedule? Yes; [facility] appointment dated 07/27, reviewed and relayed [facility] provider instructions, including medications, see notes, this RN to f/u regarding cardiology clearance, seeabove, states aware and states understanding. Reviewed with patient that Pre-Op will call between 2PM-5PM with time to arrive for surgery the next day? Yes. Reviewed with patient that they will report to Pre/Post Op Services desk day of surgery? Yes. Does patient have transportation to and from surgery? Yes. Patient aware surgery anticipated to be OUTPATIENT. Discussed anticipated care after discharge to be self care. Post-op support: spouse. Falls Education provided? Yes. Questions and concerns answered and patient verbalized understanding via teach back. Instructed to call office as needed, office phone number provided. TRINI Cohen, RN August 03, 2024 5:02 PM [facility]03-31-2025 Miscellaneous Notes* Telephone Encounter - Stephanie Storm RN - 08/03/2024 4:08 PM EDT NEUROSURGERY CARE COORDINATION [facility] PRE-OP EDUCATION TELEPHONE CALL Patient scheduled for Right L4/[address] Everett for Thursday 08/10 at [facility]. Noted medical clearance pending cardiology clearance, noted telephone encounters dated today 08/03 with further information regarding this, this RN to f/u with this, and noted financial clearance obtained. Called patient at home/mobile phone number, name and verified. Spoke with patient Kvng Landry for pre-op education. Given both written and verbal instructions regarding: pre-op skin preparation and post-op pain management, wound care, and restrictions. Provided to patient and discussed the following education materials and supplies: [facility] 1st Floor, Spine Surgery Pre-/Post-Op Instructions, Skin Preparation & NPO Instructionsincluding Hibiclens & CHG wipes, Pain Management After Spine Surgery, Smoking & Spine Surgery, Nearby Accommodations List, Preparing for Post-Acute Care Instructions, and Preparing for Surgery Card? Yes. Patient states has Hibiclens soap. Discussed recommendation and provided education material to have Advance Directives completed? Yes.Provided [facility] Healthcare Power of Net Architect form? No. Provided [facility] Living Will form? No. Does patient already have forms completed and scanned into system or were forms scanned during this visit? No. Reviewed with patient to have pre-testing done within 30 days of scheduled surgery and phone numberprovided to call and schedule? Yes; [facility] appointment dated 07/27, reviewed and relayed [facility] provider instructions, including medications, see notes, this RN to f/u regarding cardiology clearance, seeabove, states aware and states understanding. Reviewed with patient that Pre-Op will call between 2PM-5PM with time to arrive for surgery the next day? Yes. Reviewed with patient that they will report to Pre/Post Op Services desk day of surgery? Yes. Does patient have transportation to and from surgery? Yes. Patient aware surgery anticipated to be OUTPATIENT. Discussed anticipated care after discharge to be self care. Post-op support: spouse. Falls Education provided? Yes. Questions and concerns answered and patient verbalized understanding via teach back. Instructed to call office as needed, office phone number provided. TRINI Cohen, RN August 03, 2024 5:02 PM documented in [facility] encounterK[facility] Telephone encounter Note * Telephone Encounter - Talisha Hicks - 08/03/2024 10:33 AM EDT Patient called back stating that she was able to get an appointment with [facility]. She will need a clearance form faxd to [phone]. Her appointment is 08/06 @ 830am with Dr Giovanni Ji [facility]03-31-2025 Telephone encounter Note* Telephone Encounter - Talisha Hicks - 08/03/2024 9:50 AM EDT Patient called stating that Dhaval Licona's office called and cancelled her appointment. They statedthat they can not give her clearance, that she will need to see her regular Psych Therapist. She triedcalling other offices, but no one will see her. Her Surgery is on August 10 [facility]03-31-2025 Telephone encounter Note* Telephone Encounter - Darlene Castro - 08/03/2024 8:55 AM EDT Pt had pre op appt 08/04 with Dhaval Licona. Dhaval stated pt follows for general cardiology. would be the one to clear her for surgery. Left pt message that appt is canceled and she would need to follow up with . Darlene Castro [facility]03-31-2025 Miscellaneous Notes* Telephone Encounter - Darlene Castro - 08/03/2024 8:55 AM EDT Pt had pre op appt 08/04 with Dhaval Licona. Dhaval stated pt follows for general cardiology. would be the one to clear her for surgery. Left pt message that appt is canceled and she would need to follow up with . Darlene Castro documented in this encounterK[facility]03-27-2025 Telephone encounter Note * Telephone Encounter - Sisi Truong LPN - 07/30/2024 2:39 PM EDT Signed pre op received from Ann WAGNER. Also received EKG, assessment and plan, echo , stress test ,cardiac cath reports from [facility] . Placed in scanning , 21 pages received [facility]03-27-2025 Miscellaneous Notes* Telephone Encounter - Sisi Truong LPN - 07/30/2024 2:39 PM EDT Signed pre op received from Ann WAGNER. Also received EKG, assessment and plan, echo , stress test ,cardiac cath reports from [facility] . Placed in scanning , 21 pages received documented in this encounterK[facility]03-[facility]-2025 Telephone encounter Note * Telephone Encounter - Francesca Reno LPN - 07/28/2024 1:01 PM EDT Records received via fax from [facility]. Scanned in to [employer]. Jenfier Reno LPN [facility]03-25-2025 Miscellaneous Notes* Telephone Encounter - Francesca Reno LPN - 07/28/2024 1:01 PM EDT Records received via fax from [facility]. Scanned in to [employer]. Jenifer Reno LPN documented in this encounterK[facility]03-24-2025 Telephone encounter Note * Telephone Encounter - Mae Lopez APRN.CNP - 07/27/2024 3:16 PM EDT Good afternoon, Patient was seen in [facility] today; she had a syncopal episode requiring ER visit via squad from outpatient x-ray. I faxed a letter for optimization to her certified industrial hygienist Dr. Liu at [facility]. Can we call their office to see if patient can be evaluated pre-op? She has been trying to get in touch with them for the past week and has not received a return call. If she cannot be seen, I was going to try and get her into a [facility] certified industrial hygienist. Thank you for your assistance, Mae Lopez APRN.CNP [facility]03-24-2025 Miscellaneous Notes* Telephone Encounter - Mae Lopez APRN.CNP - 07/27/2024 3:16 PM EDT Good afternoon, Patient was seen in [facility] today; she had a syncopal episode requiring ER visit via squad from outpatient x-ray. I faxed a letter for optimization to her certified industrial hygienist Dr. Liu at [facility]. Can we call their office to see if patient can be evaluated pre-op? She has been trying to get in touch with them for the past week and has not received a return call. If she cannot be seen, I was going to try and get her into a [facility] certified industrial hygienist. Thank you for your assistance, Mae Lopez APRN.CNP documented in this encounterKet[facility]03-24-2025 Telephone encounter Note * Telephone Encounter - Sisi Truong LPN - 07/27/2024 2:32 PM EDT Faxed signed records release to [facility] records dept. @ [phone] , requesting EKG , ,Echo, Pakemaker/AICD check, ER notes and chest xray , CT scan . Fax receipt obtained , placed in scanning. [facility]03-24-2025 Miscellaneous Notes* Telephone Encounter - Sisi Truong LPN - 07/27/2024 2:32 PM EDT Faxed signed records release to [facility] records dept. @ [phone] , requesting EKG , ,Echo, Pakemaker/AICD check, ER notes and chest xray , CT scan . Fax receipt obtained , placed in scanning. documented in this encounterKet[facility]03-24-2025 Instructions* Patient Instructions* Mae Lopez APRN.COUNSELING CASE MANAGER - 07/27/2024 2:11 PM EDT Images from the original note were not included. [facility]est[facility] PATIENT PREOPERATIVE INSTRUCTIONS Shawn Everett MD has scheduled you for your procedure at this surgery center: [facility]: [phone] -- [address] [address]. Please read below carefully for your personalized instructions. Dietary Restrictions: - No solid food after midnight. - You may have 12 ounces of clear liquids (water, clear juices such as apple juice or gatorade, carbonated beverages, clear tea, black coffee, jello) until 2 hours before scheduled arrival at facility. Medications: Unless instructed differently below, stay on all of your medications until your surgery. If you start any new medications after today's visit, please contact your surgeon. Pre-Surgery Med Instructions Medication Instructions lidocaine (SALONPAS) 4 % patch May continue medication until surgery as needed. sertraline (ZOLOFT) 50 mg tablet Take normal dose at bedtime day prior to surgery. carvedilol (COREG) 25 mg tablet Take the day of surgery with a small sip of water oxyCODONE-acetaminophen (PERCOCET) 5-325 mg tablet May continue medication until surgery as needed. cholecalciferol, Vitamin D3, (VITAMIN D3) 1,250 mcg (50,000 unit) cap capsule Do not take the day of surgery cholecalciferol (VITAMIN D3) 1,000 unit tab tablet Do not take the day of surgery tiZANidine (ZANAFLEX) 4 mg tablet May continue medication until surgery as needed. levothyroxine (SYNTHROID) 150 mcg tablet Take the day of surgery with a small sip of water insulin lispro (HUMALOG KWIKPEN) 100 unit/mL Do not take the day of surgery aspirin, enteric coated (ASPIRIN, ENTERIC COATED) 81 mg EC tablet Do not take the day of surgery omega-3 fatty acids/fish oil (FISH OIL-OMEGA-3 FATTY ACIDS) 300-1,000 mg cap Stop 7 days before surgery Xqjqfgpjwnibc-Omsviyko-Hnshda (MULTIVITAMIN 50 PLUS) tab Do not take the day of surgery Ascorbic Acid (VITAMIN C) 1,000 mg tablet Do not take the day of surgery diroximel fumarate (VUMERITY) 231 mg capsule, delayed release hydroCHLOROthiazide 25 mg tablet Do not take the day of surgery rosuvastatin (CRESTOR) 5 mg tablet Take normal dose at bedtime day prior to surgery. insulin glargine (LANTUS SOLOSTAR U-100 INSULIN) 100 unit/mL (3 mL) Insulin: Do not take the morning of surgery. Take 75% of your usual dose the night before surgery if possible. If not possible, take full dose the night before surgery. (24 units) gabapentin (NEURONTIN) 300 mg capsule Take the day of surgery with a small sip of water losartan (COZAAR) 50 mg tablet Take the day of surgery with a small sip of water acetaminophen (TYLENOL) 500 mg tablet May continue medication until surgery as needed. Diclofenac - hold 7 days pre - op If you start any new medications after today's visit, please contact the surgeon's office. If you are currently using a ddmz-gng-jnoy injectable or oral medication for diabetes or weight loss such as Dulaglutide (Trulicity), Exenatide (Byetta, Bydureon), Liraglutide (Victoza, Saxenda), Semaglutide (Ozempic, Wegovy, Rybelsus), or Tirzepatide (Mounjaro), the medicine should be stopped at least 7 days before surgery. These medicines can cause food to remain in your stomach for a very longtime and increase the risks from surgery and anesthesia. Not stopping the medication for a long enough time may result in your surgery being rescheduled. Blood Thinning Medications: - Stop NSAIDS (Ibuprofen, Advil, Aleve, Motrin, Celebrex, Mobic, etc.) 7 days before surgery, as directed by your surgeon. - Do NOT stop aspirin or other anticoagulants without consulting with your certified industrial hygienist or prescribing physician. - Stop ALL herbal and dietary supplements 7 days before surgery. - You may take Tylenol (Acetaminophen) or any of your pain medications that do not contain aspirin or NSAIDS as needed. Important Reminders: - Candy, mints, and tobacco products are NOT permitted the morning of surgery. - Hearing aids, dentures and glasses may be worn the morning of surgery. - NO jewelry, body piercings, makeup, hairpins or contacts are to be worn the day of surgery. If you develop symptoms such as a fever, cold, or flu, or have other changes to your health within TWO DAYS of scheduled surgery or the morning of surgery, please contact the surgery center above. Personal Belongings: -Please have photo ID and insurance cards. -If you do not have a copy of advance directives on file with us, please bring a copy with you on the day of surgery. - Leave ALL valuables and money at home or with family members. - Please bring high-quality footwear, such as sneakers, to the hospital for ambulating post-surgery. For Outpatient Procedures: - YOU MUST HAVE A RESPONSIBLE PROP MAKER TAKE YOU HOME. A SHIFT LEADER OR PROPOSAL SPECIALIST CANNOT BE MADE A RESPONSIBLE PROP MAKER. - We recommend that a responsible person stays with you overnight to take care of you. - You cannot stay in a hotel alone after outpatient surgery. You will not be permitted to have yoursurgery, if you do not have someone to take care of you. Arrival Time for Surgery: -You will receive a call from [facility] the afternoon before surgery after 2:30 pm(or Saturday for Saturday surgery) for a scheduled arrival time. - If you have not heard by 4 pm, please contact [facility] at [phone]. Please be aware that emergency situations arise, which may delay or change your surgical time. If this happens, we will notify you as soon as possible and regret any inconvenience. If you already have an Advance Directive, please fax a copy to [phone] or email to for it to be added to your chart. If you do not have an Advance Directive, you can find the appropriate form and more information at [email or web address]. We recommend that youcomplete the Advance Directive form found on the website and bring it with you the day of your surgery. It can be witnessed and scanned into your chart that day. Mae Lopez APRN.CNP documented in this encounterKet[facility]03-24-2025 History and physical note * Mae Lopez APRN.CNP - 07/27/2024 1:40 PM EDT Images from the original note were not included. [facility] Pre-Anesthesia Consultation Clinic HISTORY AND PHYSICAL EXAMINATION SERVICE DATE: 07/27/2024 SERVICE TIME: 1:23 PM PRIMARY CARE PHYSICIAN: Elmer Richards MD Assessment Patient has the following medical conditions which may affect alireza-operative course: Anxiety Assessment: Mood stable on sertraline, follows with PCP Coronary-myocardial bridge Assessment: Follows with certified industrial hygienist Dr. Liu, last OV 03/02/24. Letter faxed for optimization/cardiology records. Denies CP or palpitations; has baseline exertional dyspnea. 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 Had exacerbation in May 2024 which wastreated with 3 days of IV Solu-Medrol outpatient. Obesity, Class III, BMI >= 40 Assessment: Body mass index is 47.52 kg/m . Procedure scheduled appropriately at hospital based OR at [place]. Paroxysmal atrial fibrillation (HCC) Assessment: Hx PVCs and PAF. Follows with certified industrial hygienist Dr. Liu, last OV 03/02/24. Hx PPM, EKG in [facility] today shows atrial-paced rhythm with no extra beats. Controlled on carvedilol. PONV (postoperative nausea and vomiting) Assessment: Potential issue, would likely benefit from premedication due to history of PONV in the past Presence of cardiac pacemaker Assessment: PPM present, last interrogation on 09/12/23 reviewed. Follows with certified industrial hygienist, Dr. Liu, last OV 03/02/24. Type of device/Virology Teacher: [employer] [id number] Ema XT DR VANG Last interrogation: 09/12/23 Pacemaker dependency: Yes Surgical site: Lumbar spine Location of CIED generator in body: Chest Device rep needed: No RA (rheumatoid arthritis) (HCC) Assessment: Chronic back/joint pain. Had steroid burst earlier this month for knee pain. On Percocet, diclofenac, gabapentin, Zanaflex. Systemic lupus erythematosus (HCC) Assessment: No current treatment. Has chronic back/joint pain. History of syncope Assessment: Patient was transferred via squad to [facility] ER 07/20/24 from an outpatient x-ray due to syncopal episode. Patient states ER decreased BP medications. Fax for records sent; patient states she had CT head and x-ray. EKG today shows atrial-paced rhythm. Anesthesia consulted for chart review and letter also sent to certified industrial hygienist for optimization. ANESTHESIA FINDINGS: Intubation History: No abnormal airway history Significant Anesthesia Considerations: +has required ultrasound guidance potential postop nausea/vomiting potential slow emergence potential difficult IV/vein access Airway History: No abnormal airway history Lu Activity Status Index: METS: Walk indoors, such as around the house (1.75 METs) Do light work around the house, such as dusting or washing dishes (2.70 METs) Take care of self; that is eating, dressing, bathing, using the toilet (2.75 METs) DASI Score: 7.2 Patient denies any chest pain or undue shortness of breath with the above physical activity. Dependency List (Category): +SOB with most activity due to back/joint pain. Clinical Frailty Scale: 4. Apparently vulnerable STOP-Bang Score: Has or is being treated for high blood pressure BMI greater than 35 kg/m^2 Patient over 50 years old Denies snoring loudly Denies feeling tired, fatigued, or sleepy during the daytime Has not been observed to stop breathing or choking/gasping during sleep Does not have a large neck Non-male patient STOP-Bang Score: 3 [id number] Score: Age: <65 Sex: female CHF history: No Hypertension history: Yes Stroke/TIA/thromboembolism history: No Vascular disease history: No Diabetes history: Yes [id number] Score: 3 ARISCAT Score: Age: 51-80 Preoperative SpO2: 91-95% Respiratory infection in the last month: No Preoperative anemia: No Surgical incision: peripheral Duration of surgery: 2-3 hrs Emergency procedure: No ARISCAT Score: 27 Airway Note 09/11/23 Final Airway Details Final airway type: endotracheal airway Final Endotracheal Airway: ETT Cuffed: yes Successful intubation technique: direct laryngoscopy Endotracheal tube insertion site: oral Blade: Nelly Blade size: #4 ETT size (mm): 7.5 Measured from: lips Measurement (cm): 21 Placement verified by: capnometry Cormack-Lehane Classification: grade I - full view of glottis Number of attempts at approach: 1 Airway not difficult I - PHYSICAL EVALUATION AIRWAY Patient intubated: No. Tracheostomy tube not present Mallampati: III. TM distance: >3 FB. Neck ROM: full ROM without neurological symptoms. Mouth opening: adequate. Short neck: no. Thick neck: no Lip Bite Test: II Microretrognathia/Micronagthia/Recessed Chin: No DENTAL Dental findings: teeth intact. II - ANESTHESIA PLAN Anesthetic plan additional comments: *[facility] - anesthesia choice. Beta Josephine Monitoring Plan Post Procedure Analgesic Plan Prepared for Surgery: optimally prepared for surgery, pending [see comment]. Labs are pending. Fax sent to [facility] for ER visit records from 07/20/24. Cardiac optimization letter faxed to Dr. Liu; telephone encounter sent to [facility] nurses to help getappointment scheduled pre-op given recent syncopal episode. Anesthesia consult re: syncopal episode; email sent to [facility] anesthesia for chart review. CONSULTS: The following consults have been initiated at this time: anesthesia and cardiology. Planned Anesthetic: anesthesia choice The Following Tests/Procedures Have Been Initiated: Orders Placed This Encounter BMP Standing Status: Future Expected Date: 07/27/2024 Expiration Date: 10/26/2024 Complete Blood Count and Differential Standing Status: Future Expected Date: 07/27/2024 Expiration Date: 10/26/2024 Type and Screen, 30 day Standing Status: Future Expected Date: 07/27/2024 Expiration Date: 10/26/2024 Scheduling Instructions: A 30-day Type and Screen test has been ordered for you. This should be scheduled to be collected noearlier than 29 days before your scheduled procedure. If you receive blood products (red blood cells, platelets, plasma, cryoprecipitate) at any point before your procedure or are a female and become, please inform your provider. This test will be canceled, and a standard type and screen will need to be ordered to be collected within 3 days of your procedure. [facility] Planned Surgery or Procedure:: [place] Status of surgery/procedure:: Scheduled Date of surgery/procedure:: 08/10/2024 lidocaine (SALONPAS) 4 % patch Sig: APPLY ONE PATCH AT NIGHT AND LEAVE ON FOR 12 HOURS THEN REMOVE DURING THE DAY ECG COMPLETE Order Comments: Ordered by an unspecified provider REASON FOR VISIT: Kvng Landry is a 53 year old female who is scheduled for Procedure(s): DECOMPRESSION LAMINECTOMY LUMBAR POSTERIOR LEVEL 1 (Right L4/5 MIS Decompression) (Right) at the request of Dr. Shawn Everett for consultation. My final recommendation will be communicated back to the requesting physician by way of shared medical record or letter. Subjective The patient has the following: COVID-19 Immunization Status Current Care Gaps Covid-19 Vaccine ( season) Overdue since 01/05/2024 04/04/2021 Imm Admin: COVID-19 original vaccine, age 12+ yr, monovalent (PFIZER- BIONTECH - PURPLE TOP) 08/09/2020 Imm Admin: COVID-19 original vaccine, age 12+ yr, monovalent (PFIZER- BIONTECH - PURPLE TOP) 07/19/2020 Imm Admin: COVID-19 original vaccine, age 12+ yr, monovalent (PFIZER- BIONTECH - PURPLE TOP) Only the first 3 history entries have been loaded, but more history exists. CHIEF COMPLAINT: Pre-op evaluation HPI: This 53 year old female is scheduled for the above procedure and presents to the [facility] for pre-operative examination. Patient reports chronic back pain radiating to legs (hx MS). Denies fevers, chills, nausea, vomiting, abdominal pain, chest pain, and SOB. REVIEW OF SYSTEMS: General: +Morbid obesity +Lupus +ER 07/20/24 - passed out at x-ray Negative for: malaise and fever. Neurological: Positive for: headaches and multiple sclerosis (MS exacerbation May 2023 - IV solumedrol). 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 Respiratory: No history of current cough or dyspnea, or pneumonia in the past 6 weeks. No history of respiratory/pulmonary symptoms or problems. Cardiovascular: +EP Dr. Baer placed PPM +Dr. Liu - last OV 03/02/24 +Myocardial bridge Positive for: AICD/PPM (replaced 09/11/23 (initial placement 2020)), arrhythmia (PVC/PAF), hyperlipidemia and hypertension Negative for: abdominal aortic aneurysm, angina, anticoagulation therapy, atrial fibrillation, CAD,chest pain, CHF, congenital heart defect, DVT/PE, recent [place], murmur/valvular heart disease, PTCA, PVD, open heart surgery and valve surgery. GI: No history of GI symptoms or problems. No history of esophageal varices, recent ascites, or ETOH greater than 2 drinks per day. : Positive for: urinary incontinence (intermittent). Negative for: dysuria, nephrolithiasis and renal failure. IRRIGATOR: Negative for abnormal vaginal bleeding, abnormal vaginal discharge. Endocrine: Positive for: diabetes mellitus (CGM 143 currently), hypothyroidism (hx Marquita's) and steroid for chronic problem (prednisone for knee pain). Patient's diabetes mellitus is controlled by insulin. Hematology: +Hx lupus - no blood clots in the past Positive for: bruises/bleeds easily and chronic anti-coagulation/platelet meds. Patient is on anti-coagulation/platelet medication(s): Aspirin. Negative for: factor V Leiden. Oncology: No history of CA metastasis, chemo within 30 days, or radiotherapy within 90 days. No history of oncological symptoms or problems. Psych: Positive for: anxiety. Negative for: drug dependency and Marijuana Use. Musculoskeletal: See HPI. Positive for: back pain, joint pain (knees, hands/elbow) and rheumatoid arthritis. Skin: Positive for: rash (chest from monitoring leads). Implanted Devices: Has implanted device Implants: Pacemaker. PAST MEDICAL HISTORY Diagnosis Date Atrioventricular block, second degree Bradycardia Coronary-myocardial bridge Depression Diabetes mellitus, type 2 (HCC) DVT, lower extremity (HCC) Essential hypertension History of myocardial infarction due to atherothrombotic coronary artery disease Hypothyroidism Malfunction of electrode lead of cardiac pacemaker atrial lead Mixed hyperlipidemia MS (multiple sclerosis) ([facility]) Multiple sclerosis ([facility]) Presence of cardiac pacemaker [employer] dual-chamber MRI conditional pacemaker system implanted 02/06/2021 for second degree AV block; system extracted (removed) 09/11/2023 due to lead malfunction; new Medtronic dual-chamber pacemaker system reimplanted (system will be MRI conditional after 6 weeks post implant) PVC (premature ventricular contraction) RA (rheumatoid arthritis) ([facility]) 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 Baer on 09/11/2023. Systemic lupus erythematosus ([facility]) PAST SURGICAL HISTORY Procedure Laterality Date BASIC PACEMAKER DUAL CHAMBER Left 02/06/2021 [employer] dual-chamber MRI conditional pacemaker system implanted for second degree AV block BASIC PACEMAKER DUAL CHAMBER Left 09/11/2023 Medtronic dual-chamber pacemaker system implant; RV septal lead, paced QRS duration 108 ms; system will be MRI conditional after 6 weeks post implant; [facility]AG Dr. Baer ECHOCARDIOGRAM 08/02/2023 [facility]; see scanned documents LAPAROSCOPY SURG CHOLECYSTECTOMY Cholecystectomy, lap NEUROPLASTY &/TRANSPOS MEDIAN NRV CARPAL TUNNE Carpal tunnel decomp PACEMAKER - REMOVAL/REPOSITION LEAD DUAL Left 09/11/2023 [employer] dual-chamber pacemaker system extraction (removal); [facility]AG Dr. Baer PAST SURGICAL HISTORY OF uterine ablation TONSILLECTOMY PRIMARY/SECONDARY Tonsillectomy TOTAL ABDOMINAL HYSTERECT W/WO RMVL TUBE OVARY Hysterectomy, SHADY FAMILY HISTORY Adopted: Yes Problem Relation Age of Onset No Known Problems Mother adopted, but knows some medical facts about mother other (other) Father adopted, does not know anything about father Breast Cancer Maternal Grandmother Alcohol abuse Maternal Grandfather Social History Tobacco Use Smoking status: Former Current packs/day: 0.00 Average packs/day: 0.3 packs/day for 1.5 years (0.4 ttl pk-yrs) Types: Cigarettes Start date: 02/24/2000 Quit date: 2001 Years since quittin.9 Smokeless tobacco: Never Vaping Use Vaping status: Never Used Substance Use Topics Alcohol use: Yes Comment: few times per week Drug use: No Prior to Admission medications as of 07/27/24 1338 Medication Sig Last Dose Taking lidocaine (SALONPAS) 4 % patch APPLY ONE PATCH AT NIGHT AND LEAVE ON FOR 12 HOURS THEN REMOVE DURING THE DAY Yes sertraline (ZOLOFT) 50 mg tablet 1 tablet every day by oral route. Yes carvedilol (COREG) 25 mg tablet Take by mouth once daily. Yes oxyCODONE-acetaminophen (PERCOCET) 5-325 mg tablet Take 1 tablet by mouth every 8 hours as needed for pain. Yes cholecalciferol, Vitamin D3, (VITAMIN D3) 1,250 mcg (50,000 unit) cap capsule Take 1 capsule by mouth one time a week. Yes cholecalciferol (VITAMIN D3) 1,000 unit tab tablet Take 1 tablet by mouth every afternoon. Yes tiZANidine (ZANAFLEX) 4 mg tablet Take 4 mg by mouth daily at bedtime. Yes levothyroxine (SYNTHROID) 150 mcg tablet Take 1 tablet by mouth every afternoon. Yes insulin lispro (HUMALOG KWIKPEN) 100 unit/mL inject 10 units subcutaneously three times a day Yes aspirin, enteric coated (ASPIRIN, ENTERIC COATED) 81 mg EC tablet Take 81 mg by mouth once daily. Yes omega-3 fatty acids/fish oil (FISH OIL-OMEGA-3 FATTY ACIDS) 300-1,000 mg cap Take by mouth. Yes Owdsdvkwbfzwx-Suxctluo-Dlssav (MULTIVITAMIN 50 PLUS) tab Take 1 tablet by mouth once daily. Yes Ascorbic Acid (VITAMIN C) 1,000 mg tablet Take 1,000 mg by mouth once daily. Yes diroximel fumarate (VUMERITY) 231 mg capsule, delayed release Take 462 mg by mouth two times a day.Yes hydroCHLOROthiazide 25 mg tablet Take 12.5 mg by mouth once daily. Yes rosuvastatin (CRESTOR) 5 mg tablet Take 5 mg by mouth once daily. Yes insulin glargine (LANTUS SOLOSTAR U-100 INSULIN) 100 unit/mL (3 mL) Inject 32 Units subcutaneously every morning. Yes gabapentin (NEURONTIN) 300 mg capsule Take 600 mg by mouth two times a day. Yes losartan (COZAAR) 50 mg tablet Take 50 mg by mouth two times a day. Yes acetaminophen (TYLENOL) 500 mg tablet Take 1 tablet by mouth every 6 hours as needed. Yes FREESTYLE LUIS MIGUEL 3 SENSOR wilbur CHANGE SENSOR EVERY 14 DAYS TRUE METRIX GLUCOSE TEST STRIP test strip use 1 TEST STRIP to TEST BLOOD SUGAR four times a day TRUE METRIX GLUCOSE METER as directed. TRUEPLUS LANCETS 30 gauge use 1 LANCET to TEST BLOOD SUGAR four times a day LORazepam (ATIVAN) 1 mg tablet Take 1 tablet by mouth every 12 hours. Patient not taking: Reported on 07/27/2024 metoprolol succinate ER (TOPROL XL) 50 mg 24 hr tablet Take 50 mg by mouth two times a day. Patient not taking: Reported on 07/27/2024 No medication comments found. ALLERGIES Allergen Reactions Codeine Anaphylaxis, Other: See Comments Erythromycin Rash, Swelling Toradol [Ketorolac] Itching Given with Vicodin at the time of the reaction. Vicodin [Hydrocodon* Itching Given with Toradol at the time of the reaction. Amlodipine Other: See Comments Cefdinir Other: See Comments Copaxone [Glatirame* Shortness of Breath Hydrocodone Other: See Comments Jardiance [Empaglif* Other: See Comments Chronic yeast infection Penicillins Hives Objective PHYSICAL EXAM: General: alert and oriented and morbidly obese. Pertinent negatives noted - not distressed. Skin: normal color, no rash or lesions. HEENT: Pertinent negatives noted - no carotid bruit. Cardiovascular: regular rate and rhythm, normal S1 and S2, no rub, murmurs, or gallop. Respiratory: normal breath sounds, no wheezes or crackles. No chest wall deformity or tenderness. Abdomen: bowel sounds present and soft. Pertinent negatives noted - not tender. Extremities: no deformity, no edema or tenderness, no joint swelling or clubbing. Neurological: normal cognition and motor skills. Gait normal. No weakness or sensory deficit. PAIN ASSESSMENT: Pain Pain Level: 4 Pain Location: Back-Lower (right leg) Description: Radiating, Sharp, Aching Duration Units: Years Frequency: Continuous VITALS: BP 125/64 Pulse 79 Resp 20 Ht 5' 1.22" (1.56m) Wt 253 lb 4.9 oz (114.9kg) SpO2 95% LMP 08/08/2006 BMI 47.52 kg/(m^2). Diagnostic tests reviewed for today's visit: Lab Value Units Date High Low HB No results within date range. HCT No results within date range. WBC No results within date range. PLT No results within date range. NA No results within date range. K No results within date range. GLUC No results within date range. BUN No results within date range. CREAT No results within date range. PTSEC No results within date range. INR No results within date range. APTT No results within date range. ALT No results within date range. AST No results within date range. TBILI No results within date range. TSH No results within date range. Lab Value Units Date High Low HCGQT No results within date range. UHCG No results within date range. HCG, BODY* No results within date range. Lab Value Units Date High Low ABORHD No results within date range. ABSCREEN No results within date range. No results found for: "HBA1C" Recent Results (from the past 8760 hours) ECG COMPLETE Collection Time: 07/27/24 1:35 PM Result Value Ventricular Rate 69 Atrial Rate 69 P-R Interval 214 QRS Duration 104 QT Interval 422 QTC Calculation (Bazett) 452 Calculated P [place] -3 Calculated R [place] 11 Calculated T [place] 9 Impression AV DUAL-PACED RHYTHM WITH PROLONGED AV CONDUCTION ABNORMAL ECG WHEN COMPARED WITH ECG OF 01-Apr-2023 13:00, PREMATURE SUPRAVENTRICULAR COMPLEXES ARE NO LONGER PRESENT VENT. RATE HAS DECREASED by 53 bpm No results found for this or any previous visit (from the past [address] Calcium Score 06/20/24 from [facility] 1. Coronary artery calcium score of 30.4*. 2. Focal ground-glass infiltrative opacities left upper lobe perihilar region partially imaged, could be sequela of infectious/inflammatory process among other etiologies. Partially imaged patchy bibasilar infiltrates/atelectasis elsewhere. Clinical correlation and follow-up advised. Consider dedicated complete CT chest for further assessment. 3. Additional findings as above. Pacemaker Clinic Check 09/12/23 PPM check, dual lead system with programming. Patient ID x 2. PM check 1st day post implant. AQUACEL drsg intact left pectoral area. No hematoma or drainage noted. Presenting rhythm AP/TENTERER at 60 BPM. No vent high rate or mode switch events. Measurements stable. EGM's without noise. No changes made. Teaching completed to patent and spouse, Tyson. Carelink monitor reviewed and given. Follow up in [place]. Will fax this report to that office. Joel EARL Most recent echocardiogram: 08/02/23 scanned into Epic MRI Cardiac 04/11/2021 from [facility] Normal left ventricular systolic function with focal transmural infarct scar at the apical wall. Instructions Given to Patient: Instructions located in the after visit summary. Patient given verbal and written preop instructions and voices comprehension and compliance. SIGNATURE: Mae Lopez APRN.CNP PATIENT NAME: Kvng Landry DATE: July 27, 2024 TIME: 1:23 PM PAGER/CONTACT #: [id number] History and physical note* Mae Lopez APRN.CNP - 07/27/2024 1:40 PM EDT Images from the original note were not included. [facility] HISTORY AND PHYSICAL EXAMINATION SERVICE DATE: 07/27/2024 SERVICE TIME: 1:23 PM PRIMARY CARE PHYSICIAN: Elmer Richards MD Assessment Patient has the following medical conditions which may affect alireza-operative course: Anxiety Assessment: Mood stable on sertraline, follows with PCP Coronary-myocardial bridge Assessment: Follows with certified industrial hygienist Dr. Liu, last OV 03/02/24. Letter faxed for optimization/cardiology records. Denies CP or palpitations; has baseline exertional dyspnea. 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 Had exacerbation in May 2024 which wastreated with 3 days of IV Solu-Medrol outpatient. Obesity, Class III, BMI >= 40 Assessment: Body mass index is 47.52 kg/m . Procedure scheduled appropriately at hospital based OR at [place]. Paroxysmal atrial fibrillation (HCC) Assessment: Hx PVCs and PAF. Follows with certified industrial hygienist Dr. Liu, last OV 03/02/24. Hx PPM, EKG in [facility] today shows atrial-paced rhythm with no extra beats. Controlled on carvedilol. PONV (postoperative nausea and vomiting) Assessment: Potential issue, would likely benefit from premedication due to history of PONV in the past Presence of cardiac pacemaker Assessment: PPM present, last interrogation on 09/12/23 reviewed. Follows with certified industrial hygienist, Dr. Liu, last OV 03/02/24. 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 Had steroid burst earlier this month for knee pain. On Percocet, diclofenac, gabapentin, Zanaflex. Systemic lupus erythematosus (HCC) Assessment: No current treatment. Has chronic back/joint pain. History of syncope Assessment: Patient was transferred via squad to [facility] ER 07/20/24 from an outpatient x-ray due to syncopal episode. Patient states ER decreased BP medications. Fax for records sent; patient states she had CT head and x-ray. EKG today shows atrial-paced rhythm. Anesthesia consulted for chart review and letter also sent to certified industrial hygienist for optimization. ANESTHESIA FINDINGS: Intubation History: No abnormal airway history Significant Anesthesia Considerations: +has required ultrasound guidance potential postop nausea/vomiting potential slow emergence potential difficult IV/vein access Airway History: No abnormal airway history Lu Activity Status Index: METS: Walk indoors, such as around the house (1.75 METs) Do light work around the house, such as dusting or washing dishes (2.70 METs) Take care of self; that is eating, dressing, bathing, using the toilet (2.75 METs) DASI Score: 7.2 Patient denies any chest pain or undue shortness of breath with the above physical activity. Dependency List (Category): +SOB with most activity due to back/joint pain. Clinical Frailty Scale: 4. Apparently vulnerable STOP-Bang Score: Has or is being treated for high blood pressure BMI greater than 35 kg/m^2 Patient over 50 years old Denies snoring loudly Denies feeling tired, fatigued, or sleepy during the daytime Has not been observed to stop breathing or choking/gasping during sleep Does not have a large neck Non-male patient STOP-Bang Score: 3 [id number] Score: Age: <65 Sex: female CHF history: No Hypertension history: Yes Stroke/TIA/thromboembolism history: No Vascular disease history: No Diabetes history: Yes [id number] Score: 3 ARISCAT Score: Age: 51-80 Preoperative SpO2: 91-95% Respiratory infection in the last month: No Preoperative anemia: No Surgical incision: peripheral Duration of surgery: 2-3 hrs Emergency procedure: No ARISCAT Score: 27 Airway Note 09/11/23 Final Airway Details Final airway type: endotracheal airway Final Endotracheal Airway: ETT Cuffed: yes Successful intubation technique: direct laryngoscopy Endotracheal tube insertion site: oral Blade: Nelly Blade size: #4 ETT size (mm): 7.5 Measured from: lips Measurement (cm): 21 Placement verified by: capnometry Cormack-Lehane Classification: grade I - full view of glottis Number of attempts at approach: 1 Airway not difficult I - PHYSICAL EVALUATION AIRWAY Patient intubated: No. Tracheostomy tube not present Mallampati: III. TM distance: >3 FB. Neck ROM: full ROM without neurological symptoms. Mouth opening: adequate. Short neck: no. Thick neck: no Lip Bite Test: II Microretrognathia/Micronagthia/Recessed Chin: No DENTAL Dental findings: teeth intact. II - ANESTHESIA PLAN Anesthetic plan additional comments: *[facility] - anesthesia choice. Beta Josephine Monitoring Plan Post Procedure Analgesic Plan Prepared for Surgery: optimally prepared for surgery, pending [see comment]. Labs are pending. Fax sent to [facility] for ER visit records from 07/20/24. Cardiac optimization letter faxed to Dr. Liu; telephone encounter sent to [facility] nurses to help getappointment scheduled pre-op given recent syncopal episode. Anesthesia consult re: syncopal episode; email sent to [facility] anesthesia for chart review. CONSULTS: The following consults have been initiated at this time: anesthesia and cardiology. Planned Anesthetic: anesthesia choice The Following Tests/Procedures Have Been Initiated: Orders Placed This Encounter BMP Standing Status: Future Expected Date: 07/27/2024 Expiration Date: 10/26/2024 Complete Blood Count and Differential Standing Status: Future Expected Date: 07/27/2024 Expiration Date: 10/26/2024 Type and Screen, 30 day Standing Status: Future Expected Date: 07/27/2024 Expiration Date: 10/26/2024 Scheduling Instructions: A 30-day Type and Screen test has been ordered for you. This should be scheduled to be collected noearlier than 29 days before your scheduled procedure. If you receive blood products (red blood cells, platelets, plasma, cryoprecipitate) at any point before your procedure or are a female and become, please inform your provider. This test will be canceled, and a standard type and screen will need to be ordered to be collected within 3 days of your procedure. [facility] Planned Surgery or Procedure:: [place] Status of surgery/procedure:: Scheduled Date of surgery/procedure:: 08/10/2024 lidocaine (SALONPAS) 4 % patch Sig: APPLY ONE PATCH AT NIGHT AND LEAVE ON FOR 12 HOURS THEN REMOVE DURING THE DAY ECG COMPLETE Order Comments: Ordered by an unspecified provider REASON FOR VISIT: Kvng Landry is a 53 year old female who is scheduled for Procedure(s): DECOMPRESSION LAMINECTOMY LUMBAR POSTERIOR LEVEL 1 (Right L4/5 MIS Decompression) (Right) at the request of Dr. Shawn Everett for consultation. My final recommendation will be communicated back to the requesting physician by way of shared medical record or letter. Subjective The patient has the following: COVID-19 Immunization Status Current Care Gaps Covid-19 Vaccine ( season) Overdue since 01/05/2024 04/04/2021 Imm Admin: COVID-19 original vaccine, age 12+ yr, monovalent ([employer] - PURPLE TOP) 08/09/2020 Imm Admin: COVID-19 original vaccine, age 12+ yr, monovalent ([employer] - PURPLE TOP) 07/19/2020 Imm Admin: COVID-19 original vaccine, age 12+ yr, monovalent ([employer] - PURPLE TOP) Only the first 3 history entries have been loaded, but more history exists. CHIEF COMPLAINT: Pre-op evaluation HPI: This 53 year old female is scheduled for the above procedure and presents to the [facility] for pre-operative examination. Patient reports chronic back pain radiating to legs (hx MS). Denies fevers, chills, nausea, vomiting, abdominal pain, chest pain, and SOB. REVIEW OF SYSTEMS: General: +Morbid obesity +Lupus +ER 07/20/24 - passed out at x-ray Negative for: malaise and fever. Neurological: Positive for: headaches and multiple sclerosis (MS exacerbation May 2023 - IV solumedrol). 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 Respiratory: No history of current cough or dyspnea, or pneumonia in the past 6 weeks. No history of respiratory/pulmonary symptoms or problems. Cardiovascular: +EP Dr. Baer placed PPM +Dr. Liu - last OV 03/02/24 +Myocardial bridge Positive for: AICD/PPM (replaced 09/11/23 (initial placement 2020)), arrhythmia (PVC/PAF), hyperlipidemia and hypertension Negative for: abdominal aortic aneurysm, angina, anticoagulation therapy, atrial fibrillation, CAD,chest pain, CHF, congenital heart defect, DVT/PE, recent [place], murmur/valvular heart disease, PTCA, PVD, open heart surgery and valve surgery. GI: No history of GI symptoms or problems. No history of esophageal varices, recent ascites, or ETOH greater than 2 drinks per day. : Positive for: urinary incontinence (intermittent). Negative for: dysuria, nephrolithiasis and renal failure. IRRIGATOR: Negative for abnormal vaginal bleeding, abnormal vaginal discharge. Endocrine: Positive for: diabetes mellitus (CGM 143 currently), hypothyroidism (hx Marquita's) and steroid for chronic problem (prednisone for knee pain). Patient's diabetes mellitus is controlled by insulin. Hematology: +Hx lupus - no blood clots in the past Positive for: bruises/bleeds easily and chronic anti-coagulation/platelet meds. Patient is on anti-coagulation/platelet medication(s): Aspirin. Negative for: factor V Leiden. Oncology: No history of CA metastasis, chemo within 30 days, or radiotherapy within 90 days. No history of oncological symptoms or problems. Psych: Positive for: anxiety. Negative for: drug dependency and Marijuana Use. Musculoskeletal: See HPI. Positive for: back pain, joint pain (knees, hands/elbow) and rheumatoid arthritis. Skin: Positive for: rash (chest from monitoring leads). Implanted Devices: Has implanted device Implants: Pacemaker. PAST MEDICAL HISTORY Diagnosis Date Atrioventricular block, second degree Bradycardia Coronary-myocardial bridge Depression Diabetes mellitus, type 2 (HCC) DVT, lower extremity (HCC) Essential hypertension History of myocardial infarction due to atherothrombotic coronary artery disease Hypothyroidism Malfunction of electrode lead of cardiac pacemaker atrial lead Mixed hyperlipidemia MS (multiple sclerosis) ([facility]) Multiple sclerosis (HCC) Presence of cardiac pacemaker [employer] dual-chamber MRI conditional pacemaker system implanted 02/06/2021 for second degree AV block; system extracted (removed) 09/11/2023 due to lead malfunction; new Medtronic dual-chamber pacemaker system reimplanted (system will be MRI conditional after 6 weeks post implant) PVC (premature ventricular contraction) RA (rheumatoid arthritis) ([facility]) 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 Baer on 09/11/2023. Systemic lupus erythematosus (HCC) PAST SURGICAL HISTORY Procedure Laterality Date BASIC PACEMAKER DUAL CHAMBER Left 02/06/2021 [employer] dual-chamber MRI conditional pacemaker system implanted for second degree AV block BASIC PACEMAKER DUAL CHAMBER Left 09/11/2023 Medtronic dual-chamber pacemaker system implant; RV septal lead, paced QRS duration 108 ms; system will be MRI conditional after 6 weeks post implant; [facility]AG Dr. Baer ECHOCARDIOGRAM 08/02/2023 [facility]; see scanned documents LAPAROSCOPY SURG CHOLECYSTECTOMY Cholecystectomy, lap NEUROPLASTY &/TRANSPOS MEDIAN NRV CARPAL TUNNE Carpal tunnel decomp PACEMAKER - REMOVAL/REPOSITION LEAD DUAL Left 09/11/2023 [employer] dual-chamber pacemaker system extraction (removal); [facility] Dr. Baer PAST SURGICAL HISTORY OF uterine ablation TONSILLECTOMY PRIMARY/SECONDARY <AGE 12 Tonsillectomy TOTAL ABDOMINAL HYSTERECT W/WO RMVL TUBE OVARY Hysterectomy, SHADY FAMILY HISTORY Adopted: Yes Problem Relation Age of Onset No Known Problems Mother adopted, but knows some medical facts about mother other (other) Father adopted, does not know anything about father Breast Cancer Maternal Grandmother Alcohol abuse Maternal Grandfather Social History Tobacco Use Smoking status: Former Current packs/day: 0.00 Average packs/day: 0.3 packs/day for 1.5 years (0.4 ttl pk-yrs) Types: Cigarettes Start date: 02/24/2000 Quit date: 2001 Years since quittin.9 Smokeless tobacco: Never Vaping Use Vaping status: Never Used Substance Use Topics Alcohol use: Yes Comment: few times per week Drug use: No Prior to Admission medications as of 07/27/24 1338 Medication Sig Last Dose Taking lidocaine (SALONPAS) 4 % patch APPLY ONE PATCH AT NIGHT AND LEAVE ON FOR 12 HOURS THEN REMOVE DURING THE DAY Yes sertraline (ZOLOFT) 50 mg tablet 1 tablet every day by oral route. Yes carvedilol (COREG) 25 mg tablet Take by mouth once daily. Yes oxyCODONE-acetaminophen (PERCOCET) 5-325 mg tablet Take 1 tablet by mouth every 8 hours as needed for pain. Yes cholecalciferol, Vitamin D3, (VITAMIN D3) 1,250 mcg (50,000 unit) cap capsule Take 1 capsule by mouth one time a week. Yes cholecalciferol (VITAMIN D3) 1,000 unit tab tablet Take 1 tablet by mouth every afternoon. Yes tiZANidine (ZANAFLEX) 4 mg tablet Take 4 mg by mouth daily at bedtime. Yes levothyroxine (SYNTHROID) 150 mcg tablet Take 1 tablet by mouth every afternoon. Yes insulin lispro (HUMALOG KWIKPEN) 100 unit/mL inject 10 units subcutaneously three times a day Yes aspirin, enteric coated (ASPIRIN, ENTERIC COATED) 81 mg EC tablet Take 81 mg by mouth once daily. Yes omega-3 fatty acids/fish oil (FISH OIL-OMEGA-3 FATTY ACIDS) 300-1,000 mg cap Take by mouth. Yes Lyzwhjyafavjo-Tytzhlra-Qyzpig (MULTIVITAMIN 50 PLUS) tab Take 1 tablet by mouth once daily. Yes Ascorbic Acid (VITAMIN C) 1,000 mg tablet Take 1,000 mg by mouth once daily. Yes diroximel fumarate (VUMERITY) 231 mg capsule, delayed release Take 462 mg by mouth two times a day.Yes hydroCHLOROthiazide 25 mg tablet Take 12.5 mg by mouth once daily. Yes rosuvastatin (CRESTOR) 5 mg tablet Take 5 mg by mouth once daily. Yes insulin glargine (LANTUS SOLOSTAR U-100 INSULIN) 100 unit/mL (3 mL) Inject 32 Units subcutaneously every morning. Yes gabapentin (NEURONTIN) 300 mg capsule Take 600 mg by mouth two times a day. Yes losartan (COZAAR) 50 mg tablet Take 50 mg by mouth two times a day. Yes acetaminophen (TYLENOL) 500 mg tablet Take 1 tablet by mouth every 6 hours as needed. Yes FREESTYLE LUIS MIGUEL 3 SENSOR wilbur CHANGE SENSOR EVERY 14 DAYS TRUE METRIX GLUCOSE TEST STRIP test strip use 1 TEST STRIP to TEST BLOOD SUGAR four times a day TRUE METRIX GLUCOSE METER as directed. TRUEPLUS LANCETS 30 gauge use 1 LANCET to TEST BLOOD SUGAR four times a day LORazepam (ATIVAN) 1 mg tablet Take 1 tablet by mouth every 12 hours. Patient not taking: Reported on 07/27/2024 metoprolol succinate ER (TOPROL XL) 50 mg 24 hr tablet Take 50 mg by mouth two times a day. Patient not taking: Reported on 07/27/2024 No medication comments found. ALLERGIES Allergen Reactions Codeine Anaphylaxis, Other: See Comments Erythromycin Rash, Swelling Toradol [Ketorolac] Itching Given with Vicodin at the time of the reaction. Vicodin [Hydrocodon* Itching Given with Toradol at the time of the reaction. Amlodipine Other: See Comments Cefdinir Other: See Comments Copaxone [Glatirame* Shortness of Breath Hydrocodone Other: See Comments Jardiance [Empaglif* Other: See Comments Chronic yeast infection Penicillins Hives Objective PHYSICAL EXAM: General: alert and oriented and morbidly obese. Pertinent negatives noted - not distressed. Skin: normal color, no rash or lesions. HEENT: Pertinent negatives noted - no carotid bruit. Cardiovascular: regular rate and rhythm, normal S1 and S2, no rub, murmurs, or gallop. Respiratory: normal breath sounds, no wheezes or crackles. No chest wall deformity or tenderness. Abdomen: bowel sounds present and soft. Pertinent negatives noted - not tender. Extremities: no deformity, no edema or tenderness, no joint swelling or clubbing. Neurological: normal cognition and motor skills. Gait normal. No weakness or sensory deficit. PAIN ASSESSMENT: Pain Pain Level: 4 Pain Location: Back-Lower (right leg) Description: Radiating, Sharp, Aching Duration Units: Years Frequency: Continuous VITALS: BP 125/64 Pulse 79 Resp 20 Ht 5' 1.22" (1.56m) Wt 253 lb 4.9 oz (114.9kg) SpO2 95% LMP 08/08/2006 BMI 47.52 kg/(m^2). Diagnostic tests reviewed for today's visit: Lab Value Units Date High Low HB No results within date range. HCT No results within date range. WBC No results within date range. PLT No results within date range. NA No results within date range. K No results within date range. GLUC No results within date range. BUN No results within date range. CREAT No results within date range. PTSEC No results within date range. INR No results within date range. APTT No results within date range. ALT No results within date range. AST No results within date range. TBILI No results within date range. TSH No results within date range. Lab Value Units Date High Low HCGQT No results within date range. UHCG No results within date range. HCG, BODY* No results within date range. Lab Value Units Date High Low ABORHD No results within date range. ABSCREEN No results within date range. No results found for: "HBA1C" Recent Results (from the past 8760 hours) ECG COMPLETE Collection Time: 07/27/24 1:35 PM Result Value Ventricular Rate 69 Atrial Rate 69 P-R Interval 214 QRS Duration 104 QT Interval 422 QTC Calculation (Bazett) 452 Calculated P [place] -3 Calculated R [place] 11 Calculated T [place] 9 Impression AV DUAL-PACED RHYTHM WITH PROLONGED AV CONDUCTION ABNORMAL ECG WHEN COMPARED WITH ECG OF 01-Apr-2023 13:00, PREMATURE SUPRAVENTRICULAR COMPLEXES ARE NO LONGER PRESENT VENT. RATE HAS DECREASED by 53 bpm No results found for this or any previous visit (from the past [address] Calcium Score 06/20/24 from Care Everywhere 1. Coronary artery calcium score of 30.4*. 2. Focal ground-glass infiltrative opacities left upper lobe perihilar region partially imaged, could be sequela of infectious/inflammatory process among other etiologies. Partially imaged patchy bibasilar infiltrates/atelectasis elsewhere. Clinical correlation and follow-up advised. Consider dedicated complete CT chest for further assessment. 3. Additional findings as above. Pacemaker Clinic Check 09/12/23 PPM check, dual lead system with programming. Patient ID x 2. PM check 1st day post implant. AQUACEL drsg intact left pectoral area. No hematoma or drainage noted. Presenting rhythm AP/TENTERER at 60 BPM. No vent high rate or mode switch events. Measurements stable. EGM's without noise. No changes made. Teaching completed to patent and spouse, Tyson. Muufri monitor reviewed and given. Follow up in [place]. Will fax this report to that office. Joel EARL Most recent echocardiogram: 08/02/23 scanned into Epic MRI Cardiac 04/11/2021 from [facility] [place] Everywhere Normal left ventricular systolic function with focal transmural infarct scar at the apical wall. Instructions Given to Patient: Instructions located in the after visit summary. Patient given verbal and written preop instructions and voices comprehension and compliance. SIGNATURE: Mae Lopez APRN.CNP PATIENT NAME: Kvng Landry DATE: July 27, 2024 TIME: 1:23 PM PAGER/CONTACT #: documented in this encounterK[facility] NotePatient: KVNG LANDRY Age: 53 years Sex: Female : 1970 Associated Diagnoses: None Author: TU HITCHCOCK CNP Patient's B/P when initially arrived to hospital, she was hypotensive in the 80's, received 1 liter of NS, and remains on IVF. Initially only able to get ortho VS supine and Sitting, were stable in one teen's. All B/P medications were held. Patient B/P running 130's, nurse to repeat ortho VS. We will restart her medications at half the dose, HCTZ 12.5 mg daily, Coreg 12.5 mg BID, and Losartan 25 mg BID. Instructed nurse to tell patient on discharge to follow-up with her certified industrial hygienist, keep track of B/P in a book and take it to the certified industrial hygienist. [facility]03-17-2025 KVNG Gonzalez :1970 Registration Date:07/20/2024 Chief Complaint Syncope History of Present Illness 53-year-old female comes in with chief complaint of syncope. Patient apparently went to have an x-ray of her knee done and as she was standing up for the x-ray she felt a very intense pain in her right knee and she passed out. Patient refers that she thinks she passed out because of the pain but she does not remember. EMS reported that the staff stated that there was no falls and that they lowered the patient to a wheelchair at the time of the event. At the time of the event the patient was pale and sweaty. When patient arrived to the emergency department patient was alert oriented x 3. Also the patient was found to be hypotensive with a blood pressure of 85/51. And patient had a white blood cell count of 16.2. The patient also has history of pacemaker placement. Patient reports that she has neuropathy as well as urinary incontinence. Patient states that she also has chronic low back pain and has been seen by neurosurgery who is aware of her symptoms. Plan was for the patient to have surgery in 1 month. X-ray of the right knee shows arthritis. Patient CRP was also elevated. Review of Systems Constitutional: Negative except HPI Eyes: Negative except HPI ENMT: Negative except HPI Respiratory: Negative except HPI Cardiovascular: Negative except HPI Gastrointestinal: Negative except HPI Genitourinary: Negative except HPI Heme: Negative except HPI Endocrine: Negative except HPI Integumentary: Negative except HPI Immunologic: Negative except HPI Musculoskeletal: Negative except HPI Neurologic: Negative except HPI Psychiatric: Negative except HPI Physical Exam Vitals & Measurements T: 37 ?C (Axillary) TMIN: 36.7 ?C (Oral) TMAX: 37 ?C (Axillary) HR: 66 (Monitored) RR: 16 BP: 136/ 83 SpO2: 95% WT: 119.9 kg WT: 115.9 kg (Dosing) BMI: 51.62 Constitutional: No acute distress Respiratory: Lungs clear to auscultation bilaterally Cardiovascular: Heart regular rate and rhythm GI: Abdomen soft nontender to palpation Neurologic: Alert active oriented x 3 Psychiatric: Cooperative with appropriate mood and affect CHEST PORTABLE 07/20/24 10:38:52 PROCEDURE: XR CHEST 1 VIEW TECHNIQUE: Chest radiograph single view. HISTORY: Syncope COMPARISONS: None . FINDINGS: Heart: Normal contour. Mediastinum/Vessels: Normal contour. Lungs/Pleural space: Shallow inspiration with mild atelectatic changes at the lung bases. No effusion or pneumothorax. Bony thorax: No acute osseous abnormality. Life support devices: 2-lead left-sided pacemaker. IMPRESSION: Shallow inspiration with mild atelectatic changes at the lung bases. Electronically signed by: Michi Hill MD 07/20/2024 10:39 AM EDT Workstation: [id number] Signed By: MICHI HILL MD CT BRAIN/HEAD WITHOUT CONTRAST 07/20/24 11:39:21 PROCEDURE: CT HEAD WITHOUT IV CONTRAST TECHNIQUE: Computerized tomography of the head was performed without contrast material. This exam was performed according to our department optimization program which includes automated exposure control, adjustment of the mA and/or kV according to patient size, and/or use of iterative reconstruction technique. HISTORY: Syncope COMPARISONS: None. FINDINGS: Skull and scalp: No acute abnormality. Paranasal sinuses: The visualized paranasal sinuses and mastoids are aerated. Ventricles and subarachnoid spaces: No hydrocephalus or subarachnoid hemorrhage. Cerebrum: No CT evidence of intracranial mass, hemorrhage, or acute territorial infarction. . Cerebellum and brainstem: No evidence of hemorrhage, acute infarction or mass. Other: The visualized globes and orbits demonstrate no acute abnormality. IMPRESSION: 1. No CT evidence of acute intracranial abnormality Electronically signed by: Michi Hill MD 07/20/2024 11:41 AM EDT RP Signed By: MICHI HILL MD KNEE RIGHT 3 VIEWS 07/20/24 15:34:39 XR KNEE RIGHT 3 VIEWS CLINICAL STATEMENT: TRAUMA. TECHNOLOGIST NOTES: WHAT SYMPTOMS ARE YOU EXPERIENCING?; right knee pain COMPARISON: None FINDINGS: Tricompartmental osteoarthritic changes. No fracture or dislocation. No joint effusion. IMPRESSION: Osteoarthritis. No acute fracture or dislocation. Electronically signed by: Michi Hill MD 07/20/2024 03:35 PM EDT Signed By: MICHI HILL MD Case discussed with ER physician Assessment/Plan Low back pain with incontinence and elevated white blood cell count MRI ordered. Patient has pacemaker. Need to rule out infection in the spine with the fact that patient's back pain has been increasing she has leukocytosis and elevated CRP. Cannot assume that toxicosis is because of steroids that (more content not included)...[facility]03-17-2025 Note Immunization Screening Entered On: 07/20/2024 17:50 EDT Performed On: 07/20/2024 17:49 EDT by Louie Purvis RN Immunization Screening Immunizations Current : Yes Last Tetanus : Less than 5 years Influenza Vaccine : No Cedric and Cedric COVID-19 Vaccine : Unknown Louie Purvis RN - 07/20/2024 17:49 EDT Influenza Immunization Screening Would the patient 18 & over like to receive the Influenza Vaccine? : No Refusal Reason : Concerns re: side effects/safety Louie Purvis RN - 07/20/2024 17:49 EDTSCleveland [facility]ucl[facility] HospitalComment on above:Order Comment: Order entered secondary to inpatient admission.Result Comment: [id number] NotePROCEDURE: CT HEAD WITHOUT IV CONTRAST TECHNIQUE: Computerized tomography of the head was performed without contrast material. This exam was performed according to our department optimization program which includes automated exposure control, adjustment of the mA and/or kV according to patient size, and/or use of iterative reconstruction technique. HISTORY: Syncope COMPARISONS: None. FINDINGS: Skull and scalp: No acute abnormality. Paranasal sinuses: The visualized paranasal sinuses and mastoids are aerated. Ventricles and subarachnoid spaces: No hydrocephalus or subarachnoid hemorrhage. Cerebrum: No CT evidence of intracranial mass, hemorrhage, or acute territorial infarction. . Cerebellum and brainstem: No evidence of hemorrhage, acute infarction or mass. Other: The visualized globes and orbits demonstrate no acute abnormality. IMPRESSION: 1. No CT evidence of acute intracranial abnormality Electronically signed by: Michi Hill MD 07/20/2024 11:41 AM EDT RP Technologist: TONY Dictated By: MICHI HILL MD Signed By: MICHI HILL MD Signed Out: 07/20/24 11:41:29[facility]03-17-2025 Note PROCEDURE: XR CHEST 1 VIEW TECHNIQUE: Chest radiograph single view. HISTORY: Syncope COMPARISONS: None . FINDINGS: Heart: Normal contour. Mediastinum/Vessels: Normal contour. Lungs/Pleural space: Shallow inspiration with mild atelectatic changes at the lung bases. No effusion or pneumothorax. Bony thorax: No acute osseous abnormality. Life support devices: 2-lead left-sided pacemaker. IMPRESSION: Shallow inspiration with mild atelectatic changes at the lung bases. Electronically signed by: Michi Hill MD 07/20/2024 10:39 AM EDT RP Technologist: LINDA OSORIO Dictated By: MICHI HILL MD Signed By: MICHI HILL MD Signed Out: 07/20/24 10:39:19[facility]03-17-2025 Telephone encounter Note* Telephone Encounter - Dalia Cuellar RN - 07/20/2024 9:47 AM EDT [facility] Emergency Response Form. NOT TO BE USED AT [facility] Complete this report when the Emergency Medical Response is activated (911 calls/EmergencyTransportto the ED) or when a Code Sheet is utilized in the care of a patient (i.e., ASC) Date of the Event: 07/20/24 Time of the Event: 9:14 AM Was emergency response activated? (Local EMS/Emergency Department) YES Location of the Incident: [facility] ([facility]) Reason/Chief Complaint for Emergency Call (Check all that apply): Fall, Hypertension/Hypotension, Lack of Consciousnes (LOC), and Mental Status Change/Dizziness/Syncope CPR Initiated-Chest Compressions and/or Rescue Breathing Provided: NO Facility AED Used-Automatic External Defibrillator: NO EMS AED Used-Automatic External Defibrillator: NO Prior to EMS arrival, was any treatment administered? NO Patient Disposition: Transferred to Hospital ED Butt Welder information: Dalia Cuellar RN [facility]03-17-2025 Miscellaneous Notes* Telephone Encounter - Dalia Cuellar RN - 07/20/2024 9:47 AM EDT [facility] Emergency Response Form. NOT TO BE USED AT [facility] Complete this report when the Emergency Medical Response is activated (911 calls/EmergencyTransportto the ED) or when a Code Sheet is utilized in the care of a patient (i.e., ASC) Date of the Event: 07/20/24 Time of the Event: 9:14 AM Was emergency response activated? (Local EMS/Emergency Department) YES Location of the Incident: [facility] ([facility]) Reason/Chief Complaint for Emergency Call (Check all that apply): Fall, Hypertension/Hypotension, Lack of Consciousnes (LOC), and Mental Status Change/Dizziness/Syncope CPR Initiated-Chest Compressions and/or Rescue Breathing Provided: NO Facility AED Used-Automatic External Defibrillator: NO EMS AED Used-Automatic External Defibrillator: NO Prior to EMS arrival, was any treatment administered? NO Patient Disposition: Transferred to Hospital ED Butt Welder information: Dalia Cuellar RN documented in this encounterKet[facility]03-17-2025 History of Present illness Narrative* Jami Kelly RT(R) - 07/20/2024 8:30 AM EDT Radiology Service Progress Note PATIENT NAME: Kvng Landry DATE OF SERVICE: July 20, 2024 TIME: 9:04 AM PATIENT IDENTITY VERIFICATION COMPLETED USING TWO (2) IDENTIFIERS: Name and Date of confirmedby patient verbally. FALL SCREENING: Has the patient had 2 falls in the last year or 1 fall with injury or currently using an Ambulatory Assistive Device (Walker, Cane, Wheelchair, Crutches, etc.)? Yes, Patient High Riskfor Falls What interventions were put in place to prevent falls during this visit? Yellow "Falls Risk Wristband" Applied, Offered Assistance with Transfers/Clothing, Instructed Patient to Remain Seated (Not onExam Table) Until Exam, and Increased Observations by Caregivers PATIENT GENDER DATA: Assigned female at . status: : No status:NO. PATIENT RELEVANT IMPLANT DATA REVIEWED: Not Applicable PATIENT PRESENTS WITH AN IMPLANTABLE OR ATTACHED ELEVATOR SUPERVISOR: No RADIOLOGY DEPARTMENT: General X-ray: Exam(s) Completed: Lower Extremity X- Ray(s): Knee, AP / Lat / Tunne / Merchant Right and Wt. Bearing PERIPHERAL IV DATA: Not applicable SIGNED BY: RT Tyler(Kelvin) July 20, 2024 9:04 AM * Jami Kelly RT(R) - 07/20/2024 8:30 AM EDT RADIOLOGY SERVICE PROGRESS NOTE DATE OF SERVICE: July 20, 2024 TIME OF SERVICE: 08:50am EVENT: FALL: Fall Details: Pt was feeling lightheaded while standing during weight bearing knee xrays, so I stayed beside her. She lost consciousness so I caught her and slowly lowered her to the floor. Shecame to after about 30 seconds and had no recollection of losing consciousness. Gallito Jimenez, Radiology nurse came and took her vitals. We moved her into wheelchair and took her to orthopedic department where her appointment was scheduled today. They took over care and called the ambulance. Who was notified: Gallito Jimenez, Radiology Nurse, Stewart Franks orthopedic MD. SERS report filled out per protocol. Treatment given: No. Patient disposition: patient was alert and oriented when she left our de partment. ADDITIONAL EVENT DETAILS: N/A SIGNATURE: RT Tyler(Kelvin) PATIENT NAME: Kvng Landry DATE: July 20, 2024 TIME: 3:29 PM PAGER/CONTACT #: documented in this encounterKettering [facility]03-17-2025 Miscellaneous Notes* Addendum Note - Jami Kelly RT(R) - 07/20/2024 8:30 AM EDTEncounter addended by: Jami Kelly RT(R) on: 07/20/2024 3:44 PM Actions taken: Clinical Note Signed documented in this encounterKettering [facility]03-17-2025 Note* Addendum Note - Jami Kelly RT(R) - 07/20/2024 8:30 AM EDTEncounter addended by: Jami Kelly RT(R) on: 07/20/2024 3:44 PM Actions taken: Clinical Note Signed [facility]03-17-2025 NoteHNO ID: [id number] Author: JAMI KELLY RT(R) Service: Radiology Author Type: Technologist Type: Progress Notes Filed: 07/20/2024 09:06 Note Text: Radiology Service Progress Note PATIENT NAME: Kvng Landry DATE OF SERVICE: July 20, 2024 TIME: 9:04 AM PATIENT IDENTITY VERIFICATION COMPLETED USING TWO (2) IDENTIFIERS: Name and Date of confirmed by patient verbally. FALL SCREENING: Has the patient had 2 falls in the last year or 1 fall with injury or currently using an Ambulatory Assistive Device (Walker, Cane, Wheelchair, Crutches, etc.)? Yes, Patient High Risk for Falls What interventions were put in place to prevent falls during this visit? Yellow "Falls Risk Wristband" Applied, Offered Assistance with Transfers/Clothing, Instructed Patient to Remain Seated (Not on Exam Table) Until Exam, and Increased Observations by Caregivers PATIENT GENDER DATA: Assigned female at . status: : No status: NO. PATIENT RELEVANT IMPLANT DATA REVIEWED: Not Applicable PATIENT PRESENTS WITH AN IMPLANTABLE OR ATTACHED ELEVATOR SUPERVISOR: No RADIOLOGY DEPARTMENT: General X-ray: Exam(s) Completed: Lower Extremity X-Ray(s): Knee, AP / Lat / Tunne / Merchant Right and Wt. Bearing PERIPHERAL IV DATA: Not applicable SIGNED BY: RT Tyler(R) July 20, 2024 9:04 [facility]03-17-2025 NoteHNO ID: [id number] Author: JAMI KELLY RT(R) Service: Radiology Author Type: Technologist Type: Progress Notes Filed: 07/20/2024 15:43 Note Text: RADIOLOGY SERVICE PROGRESS NOTE DATE OF SERVICE: July 20, 2024 TIME OF SERVICE: 08:50am EVENT: FALL: Fall Details: Pt was feeling lightheaded while standing during weight bearing knee xrays, so I stayed beside her. She lost consciousness so I caught her and slowly lowered her to the floor. She came to after about 30 seconds and had no recollection of losing consciousness. Gallito Jimenez, Radiology nurse came and took her vitals. We moved her into wheelchair and took her to orthopedic department where her appointment was scheduled today. They took over care and called the ambulance. Who was notified: Gallito Jimenez, Radiology Nurse, Stewart Franks, orthopedic MD. SERS report filled out per protocol. Treatment given: No. Patient disposition: patient was alert and oriented when she left our department. ADDITIONAL EVENT DETAILS: N/A SIGNATURE: RT Tyler(R) PATIENT NAME: Kvng Landry DATE: July 20, 2024 TIME: 3:29 PM PAGER/CONTACT #:[facility]03-14-2025 Telephone encounter Note* Telephone Encounter - Stephanie Storm RN - 07/17/2024 9:58 AM EDT NEUROSURGERY CARE COORDINATION [place] QUICK NOTE Noted. No further action required by this RN at this time. TRINI Cohen, RN July 17, 2024 9:59 AM [facility]03-14-2025 Miscellaneous Notes* Telephone Encounter - Stephanie Storm RN - 07/17/2024 9:58 AM EDT NEUROSURGERY CARE COORDINATION [facility] QUICK NOTE Noted. No further action required by this RN at this time. TRINI Cohen, RN July 17, 2024 9:59 AM * Telephone Encounter - Danielle Aponte - 07/17/2024 9:50 AM EDT Patient scheduled for 07/20/2024 with Stewart Aponte * Telephone Encounter - Marcella Anthony RN - 07/17/2024 8:59 AM EDT LVM for patient to call for appt. * Telephone Encounter - Stephanie Storm RN - 07/16/2024 11:50 AM EDT NEUROSURGERY CARE COORDINATION [facility] QUICK NOTE Patient scheduled for Right L4/[address] Everett for Thursday 08/10 at [facility]. Noted Dr. Everett's MAR[facility] notes dated 04/16/2024 & 04/03/2024. Called patient at home/mobile phone number, verified name and , discussed patient's MyChart message, states right knee pain has progressed since most recent appointment with Dr. Everett, states saw PCP and states PCP stated right knee pain may be from spine as well as pain from 'walking differently to compensate for pain', states PCP started on Prednisone, states PCP prescribed narcotic, Hydrocodone, to use for a week, states PCP discussed use of OTC Lidocaine patches, states also taking Gabapentin and Tizanidine as prescribed/prn, discussed use of ice and heat prn, states neither helping too much, informed message will be sent to Dr. Everett per patient request regarding this and that response will be relayed afterwards, states understanding. Routing to Dr. Everett. This RN to f/u with this. TRINI Cohen, RN July 16, 2024 12:04 PM * Telephone Encounter - Rachel Jackson RN - 07/14/2024 3:44 PM EDT NEUROSURGERY CARE COORDINATION [facility] QUICK NOTE Attempted to contact patient to discuss MyChart message, no answer left message to return call to the office. Rachel Jackson RN July 14, 2024 3:48 PM documented in [facility]-14-[facility]25 Telephone encounter Note * Telephone Encounter - Danielle Aponte - 07/17/2024 9:50 AM EDT Patient scheduled for 07/20/2024 with Stewart Aponte [facility]03-14-2025 Telephone encounter Note* Telephone Encounter - Marcella Anthony RN - 07/17/2024 8:59 AM EDT LVM for patient to call for appt. [facility] Work Phone: [phone]) 964-491003-13-2025 Telephone encounter Note* Telephone Encounter - Stephanie Storm RN - 07/16/2024 11:50 AM EDT NEUROSURGERY CARE COORDINATION [facility] QUICK NOTE Patient scheduled for Right L4/[address] Everett for Thursday 08/10 at [facility]. Noted Dr. Everett's MARINA notes dated 04/16/2024 & 04/03/2024. Called patient at home/mobile phone number, verified name and , discussed patient's MyChart message, states right knee pain has progressed since most recent appointment with Dr. Everett, states saw PCP and states PCP stated right knee pain may be from spine as well as pain from 'walking differently to compensate for pain', states PCP started on Prednisone, states PCP prescribed narcotic, Hydrocodone, to use for a week, states PCP discussed use of OTC Lidocaine patches, states also taking Gabapentin and Tizanidine as prescribed/prn, discussed use of ice and heat prn, states neither helping too much, informed message will be sent to Dr. Everett per patient request regarding this and that response will be relayed afterwards, states understanding. Routing to Dr. Everett. This RN to f/u with this. TRINI Cohen, RN July 16, 2024 12:04 PM [facility]03-11-2025 Telephone encounter Note* Telephone Encounter - Rachel Jackson RN - 07/14/2024 3:44 PM EDT NEUROSURGERY CARE COORDINATION [facility] QUICK NOTE Attempted to contact patient to discuss KeyOwnerhart message, no answer left message to return call to the office. Rachel Jackson RN July 14, 2024 3:48 PM [facility]03-04-2025 Telephone encounter Note* Telephone Encounter - Stephanie Storm RN - 07/07/2024 8:14 AM EST NEUROSURGERY CARE COORDINATION [facility] QUICK NOTE Patient scheduled for Right L4/[address] Everett for Thursday 08/10 at [facility]. MyChart message sent to patient by this RN, to send Pre-Op Surgical Guide, see KeyOwnerhart message for further details. No further action required by this RN at this time. TRINI Cohen, RN July 07, 2024 8:14 AM [facility]03-04-2025 Miscellaneous Notes* Telephone Encounter - Stephanie Storm RN - 07/07/2024 8:14 AM EST NEUROSURGERY CARE COORDINATION [facility] QUICK NOTE Patient scheduled for Right L4/[address] Everett for Thursday 08/10 at [facility]. MyChart message sent to patient by this RN, to send Pre-Op Surgical Guide, see Task Messenger message for further details. No further action required by this RN at this time. TRINI Cohen, RN July 07, 2024 8:14 AM documented in this encounterK[facility]02-18-2025 Telephone encounter Note * Telephone Encounter - Stephanie Storm RN - 06/23/2024 9:31 AM EST NEUROSURGERY CARE [facility] QUICK NOTE Chart reviewed. Patient scheduled for Right L4/[address] Everett for Thursday 08/10 at [facility]. Return KeyOwnerhart message sent to patient by this RN, see Task Messenger message for further details. No further action required by this RN at this time. TRINI Cohen, RN June 23, 2024 9:38 AM [facility]02-18-2025 Miscellaneous Notes* Telephone Encounter - Stephanie Storm RN - 06/23/2024 9:31 AM EST NEUROSURGERY [facility] QUICK NOTE Chart reviewed. Patient scheduled for Right L4/[address] Everett for Thursday 08/10 at [facility]. Return Red Tricyclet message sent to patient by this RN, see Task Messenger message for further details. No further action required by this RN at this time. TRNII Cohen, RN June 23, 2024 9:38 AM documented in this encounterK[facility]01-14-2025 Telephone encounter Note * Telephone Encounter - Stephanie Storm RN - 05/19/2024 3:24 PM EST NEUROSURGERY CARE [facility] SURGERY SCHEDULING ? See KeyOwnerhart message encounter dated yesterday 05/18. Called patient at home/mobile phone number, verified name and . Spoke with patient. Discussed surgery scheduling process. Patient Kvng Landry accepts surgery date of SaturdayAugust [address] Everett at [facility]. Planned procedure is Right L4/5 MIS Decompression. Discussed need for both medical clearance and financial clearance prior to scheduled surgery and discussed process of both. ? PAT will be completed at [facility]; informed message will be sent to restaurant front manager staff shortly to call patient in order to assist with scheduling this appointment, this RN to f/u with this, PACC questionnaire completed. ? Medications reviewed: Yes. Medications to be stopped prior to surgery: NSAIDS and vitamins and supplements to be stopped for 7 days prior to scheduled surgery. ? Additional pre-op clearances needed: per [facility] provider recommendations. ? Any implanted devices: No. ? Transplant History: No. ? Patient will require optimization lab work: per [facility] provider recommendations. ? Questions answered. Patient verbalizes understanding via teach back. ? Additional comments: Discussed need for PACC appointment prior to scheduled surgery and discussedprocess of this, see above, pre-op COVID test not needed d/t current [facility] policy stating no longer needed prior to surgery. Informed Pre-/Post-Op Education materials will be mailed to patient and informed that this RN will call patient closer to DOS in order to provide education over telephone, patient to purchase Hibiclens soap or patient to scrap picker both Hibiclens soap and CHG wipes at front deskof this office. Pre-Op Elizabeth Educational video to be ordered. Discussed recommended but optional trek for surgical success class and provided information sheet. All questions answered, states understanding, instructed to contact office as needed. Staff message to be sent to Dr. Everett's Event Operations Manager shortly in order to notify of scheduled surgery. This RN to f/u with this. No further action required by this RN at this time. TRINI Cohen, RN May 19, 2024 3:24 PM [facility]01-14-2025 Miscellaneous Notes* Telephone Encounter - Stephanie Storm RN - 05/19/2024 3:24 PM EST NEUROSURGERY CARE COORDINATION [facility] SURGERY SCHEDULING ? See MyChart message encounter dated yesterday 05/18. Called patient at home/mobile phone number, verified name and . Spoke with patient. Discussed surgery scheduling process. Patient Kvng Landry accepts surgery date of SaturdayAugust [address] Everett at [facility]. Planned procedure is Right L4/5 MIS Decompression. Discussed need for both medical clearance and financial clearance prior to scheduled surgery and discussed process of both. ? PAT will be completed at [facility]; informed message will be sent to restaurant front manager staff shortly to call patient in order to assist with scheduling this appointment, this RN to f/u with this, PACC questionnaire completed. ? Medications reviewed: Yes. Medications to be stopped prior to surgery: NSAIDS and vitamins and supplements to be stopped for 7 days prior to scheduled surgery. ? Additional pre-op clearances needed: per [facility] provider recommendations. ? Any implanted devices: No. ? Transplant History: No. ? Patient will require optimization lab work: per [facility] provider recommendations. ? Questions answered. Patient verbalizes understanding via teach back. ? Additional comments: Discussed need for PACC appointment prior to scheduled surgery and discussedprocess of this, see above, pre-op COVID test not needed d/t current [facility] policy stating no longer needed prior to surgery. Informed Pre-/Post-Op Education materials will be mailed to patient and informed that this RN will call patient closer to DOS in order to provide education over telephone, patient to purchase Hibiclens soap or patient to scrap picker both Hibiclens soap and CHG wipes at front deskof this office. Pre-Op Elizabeth Educational video to be ordered. Discussed recommended but optional trek for surgical success class and provided information sheet. All questions answered, states understanding, instructed to contact office as needed. Staff message to be sent to Dr. Everett's Event Operations Manager shortly in order to notify of scheduled surgery. This RN to f/u with this. No further action required by this RN at this time. TRINI Cohen, RN May 19, 2024 3:24 PM documented in this encounterK[facility]12-12-2024 NoteHNO ID: [id number] Author: SHAWN EVERETT MD Service: ? Author Type: Physician Type: Progress Notes Filed: 04/16/2024 10:23 Note Text: SPINE SURGERY NEW PATIENT I have communicated my name and active licensure. The patient's identity and physical location were verified at the time of this visit. Either the patient or their legal product sales representative has been informed of the risks and benefits of -- and alternatives to -- treatment through a remote evaluation and consents to proceed with the evaluation remotely. PCP: Elmer Richards MD REFERRING PROVIDER: No referring provider defined for this encounter. 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 Severe L4-L5 stenosis according to the report. Unknown if the weakness is arising form the lumbar spine or the multiple sclerosis. The only way to be certain is unfortunately surgery. Therefore, I recommend the simplest surgery possible: lumbar decompression. 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 She is unsure if the weakness in the legs is arising from multiple sclerosis of the lumbar stenosis Major Risk Factors Obesity High Risk High: BMI > 40 Moderate: BMI 30-40 Normal: BMI < 30 Diabetes Unknown Risk High: A1C > 8 Moderate: A1C 7-8 Normal: A1C < 7 Hx of DVT / PE High Risk High: dx of DVT / PE Normal: no dx of DVT / PE Smoking normal High: Current smoker Normal: Non smoker Narcotics Use normal High:NarxCare >=300 Moderate: 100-299 Normal: 0-99 Depression Moderate Risk High: PHQ-9 >14 Moderate: PHQ-9 5-14 Normal: PHQ-9 < 5 Data from [facility] Epic Last PT session: No date on file in last 365 days Last Epidural Steroid Injection: No epidural injection on file for last 365 days Last Spine Surgery: No history of prior spine surgery in search of available [facility] records PAST MEDICAL HISTORY Diagnosis Date Atrioventricular block, second degree Bradycardia Coronary-myocardial bridge Depression Diabetes mellitus, type 2 (HCC) DVT, lower extremity (HCC) Essential hypertension History of myocardial infarction due to atherothrombotic coronary artery disease Hypothyroidism Malfunction of electrode lead of cardiac pacemaker atrial lead Mixed hyperlipidemia MS (multiple sclerosis) (HCC) Multiple sclerosis (HCC) Presence of cardiac pacemaker [employer] dual-chamber MRI conditional pacemaker system implanted 02/06/2021 for second degree AV block; system extracted (removed) 09/11/2023 due to lead malfunction; new Medtronic dual-chamber pacemaker system reimplanted (system will be MRI conditional after 6 weeks post implant) PVC (premature ventricular contraction) RA (rheumatoid arthritis) (HCC) 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 Baer on 09/11/2023. Systemic lupus erythematosus (HCC) PAST SURGICAL HISTORY Procedure Laterality Date BASIC PACEMAKER DUAL CHAMBER Left 02/06/2021 [employer] dual-chamber MRI conditional pacemaker system implanted for second degree AV block BASIC PACEMAKER DUAL CHAMBER Left 09/11/2023 Medtronic dual-chamber pacemaker system implant; RV septal lead, paced QRS duration 108 ms; system will be MRI conditional after 6 weeks post implant; CCAG Dr. Baer ECHOCARDIOGRAM 08/02/2023 [facility]; see scanned documents LAPAROSCOPY SURG CHOLECYSTECTOMY Cholecystectomy, lap NEUROPLASTY AND/TRANSPOS MEDIAN NRV CARPAL TUNNE Carpal tunnel decomp PACEMAKER - REMOVAL/REPOSITION LEAD DUAL Left 09/11/2023 [employer] dual-chamber pacemaker system extraction (removal); CCAG Dr. Baer PAST SURGICAL HISTORY OF uterine ablation TONSILLECTOMY PRIMARY/SECONDARY Tonsillectomy TOTAL ABDOMINAL HYSTERECT W/WO RMVL TUBE OVARY Hysterectomy, SHADY Current Outpatient Medications on File Prior to Visit Medication Sig TRUE METRIX GLUCOSE TEST STRIP test strip use 1 TEST STRIP to TEST BLOOD SUGAR four times a day TRUE METRIX GLUCOSE METER as directed. TRUEPLUS LANCETS 30 gauge use 1 LANCET to TEST BLOOD SUGAR four times a day LORazepam (ATIVAN) 1 mg tablet Take 1 tablet by mouth every 12 hours. cholecalciferol (VITAMIN D3) 1,000 unit tab tablet Take 1 tablet by mouth every afternoon. tiZANidine (ZANAFLEX (more content not included)...[facility] 04-16-2024 History of Present illness Narrative* Shawn Everett MD - 04/16/2024 10:03 AM EST Images from the original note were not included. SPINE SURGERY NEW PATIENT I have communicated my name and active licensure. The patient's identity and physical location wereverified at the time of this visit. Either the patient or their legal product sales representative has been informed of the risks and benefits of -- and alternatives to -- treatment through a remote evaluation andconsents to proceed with the evaluation remotely. PCP: Elmer Richards MD REFERRING PROVIDER: No referring provider defined for this encounter. 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 Severe L4-L5 stenosis according to the report. Unknown if the weakness is arising form the lumbar spine or the multiple sclerosis. The only way to be certain is unfortunately surgery. Therefore, I recommend the simplest surgery possible: lumbar decompression. 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 She is unsure if the weakness in the legs is arising from multiple sclerosis of the lumbar stenosis Major Risk Factors Obesity High Risk High: BMI > 40 Moderate: BMI 30-40 Normal: BMI < 30 Diabetes Unknown Risk High: A1C > 8 Moderate: A1C 7-8 Normal: A1C < 7 Hx of DVT / PE High Risk High: dx of DVT / PE Normal: no dx of DVT / PE Smoking normal High: Current smoker Normal: Non smoker Narcotics Use normal High:NarxCare >=300 Moderate: 100-299 Normal: 0-99 Depression Moderate Risk High: PHQ-9 >14 Moderate: PHQ-9 5-14 Normal: PHQ-9 < 5 Data from [facility] Epic Last PT session: No date on file in last 365 days Last Epidural Steroid Injection: No epidural injection on file for last 365 days Last Spine Surgery: No history of prior spine surgery in search of available [facility] records PAST MEDICAL HISTORY Diagnosis Date Atrioventricular block, second degree Bradycardia Coronary-myocardial bridge Depression Diabetes mellitus, type 2 (HCC) DVT, lower extremity ([facility]) Essential hypertension History of myocardial infarction due to atherothrombotic coronary artery disease Hypothyroidism Malfunction of electrode lead of cardiac pacemaker atrial lead Mixed hyperlipidemia MS (multiple sclerosis) ([facility]) Multiple sclerosis ([facility]) Presence of cardiac pacemaker [employer] dual-chamber MRI conditional pacemaker system implanted 02/06/2021 for second degree AV block; system extracted (removed) 09/11/2023 due to lead malfunction; new Medtronic dual-chamber pacemaker system reimplanted (system will be MRI conditional after 6 weeks post implant) PVC (premature ventricular contraction) RA (rheumatoid arthritis) ([facility]) 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 Baer on 09/11/2023. Systemic lupus erythematosus ([facility]) PAST SURGICAL HISTORY Procedure Laterality Date BASIC PACEMAKER DUAL CHAMBER Left 02/06/2021 [employer] dual-chamber MRI conditional pacemaker system implanted for second degree AV block BASIC PACEMAKER DUAL CHAMBER Left 09/11/2023 [employer] dual-chamber pacemaker system implant; RV septal lead, paced QRS duration 108 ms; system will be MRI conditional after 6 weeks post implant; CCAG Dr. Baer ECHOCARDIOGRAM 08/02/2023 [facility]; see scanned documents LAPAROSCOPY SURG CHOLECYSTECTOMY Cholecystectomy, lap NEUROPLASTY &/TRANSPOS MEDIAN NRV CARPAL TUNNE Carpal tunnel decomp PACEMAKER - REMOVAL/REPOSITION LEAD DUAL Left 09/11/2023 [employer] dual-chamber pacemaker system extraction (removal); CCAG Dr. Baer PAST SURGICAL HISTORY OF uterine ablation TONSILLECTOMY PRIMARY/SECONDARY <AGE 12 Tonsillectomy TOTAL ABDOMINAL HYSTERECT W/WO RMVL TUBE OVARY Hysterectomy, SHADY Current Outpatient Medications on File Prior to Visit Medication Sig TRUE METRIX GLUCOSE TEST STRIP test strip use 1 TEST STRIP to TEST BLOOD SUGAR four times a day TRUE METRIX GLUCOSE METER as directed. TRUEPLUS LANCETS 30 gauge use 1 LANCET to TEST BLOOD SUGAR four times a day LORazepam (ATIVAN) 1 mg tablet Take 1 tablet by mouth every 12 hours. cholecalciferol (VITAMIN D3) 1,000 unit tab tablet Take 1 tablet by mouth every afternoon. tiZANidine (ZANAFLEX) 4 mg tablet levothyroxine (SYNTHROID) 150 mcg tablet Take 1 tablet by mouth every afternoon. insulin lispro (HUMALOG KWIKPEN) 100 unit/mL inject 10 units subcutaneously three times a day aspirin, enteric coated (ASPIRIN, ENTERIC COATED) 81 mg EC tablet Take 81 mg by mouth once daily. omega-3 fatty acids/fish oil (FISH OIL-OMEGA-3 FATTY ACIDS) 300-1,000 mg cap Take by mouth. Chqnorwvuonto-Iguweisv-Cotldn (MULTIVITAMIN 50 PLUS) tab Take 1 tablet by mouth once daily. Ascorbic Acid (VITAMIN C) 1,000 mg tablet Take 1,000 mg by mouth once daily. diroximel fumarate (VUMERITY) 231 mg capsule, delayed release Take 462 mg by mouth two times a day. hydroCHLOROthiazide 25 mg tablet Take 25 mg by mouth once daily. rosuvastatin (CRESTOR) 5 mg tablet Take 5 mg by mouth once daily. metoprolol succinate ER (TOPROL XL) 50 mg 24 hr tablet Take 50 mg by mouth two times a day. insulin glargine (LANTUS SOLOSTAR U-100 INSULIN) 100 unit/mL (3 mL) Inject subcutaneously. gabapentin (NEURONTIN) 300 mg capsule Take 400 mg by mouth three times a day as needed (nerve pain). losartan (COZAAR) 50 mg tablet Take 50 mg by mouth two times a day. acetaminophen (TYLENOL) 500 mg tablet Take 1 tablet by mouth every 6 hours as needed. No current facility-administered medications on file prior to visit. Objective PHYSICAL EXAM LMP 08/08/2006 Moving all extremities Speaks without difficulty DATA REVIEW MRI L-spine: severe L4-L5 stenosis documented in this encounterK[facility]12-11-2024 Telephone encounter Note * Telephone Encounter - Olive Xiao - 04/15/2024 9:10 AM EST Patient has been scheduled for a virtual follow up. [facility]12-11-[facility]24 Miscellaneous Notes* Telephone Encounter - Olive Xiao - 04/15/2024 9:10 AM EST Patient has been scheduled for a virtual follow up. * Telephone Encounter - Mila Edge RN - 04/14/2024 4:41 PM EST Images from the original note were not included. NEUROSURGERY CARE COORDINATION [facility] QUICK NOTE Per Dr. Everett, patient to schedule follow up appointment. Routing to [facility] to call patient and assistwith scheduling follow up appointment to review and discuss images. Shawn Everett MD Dietz, Monica, RN22 hours ago (5:58 PM) Okay to schedule follow up TRINI León RN April 14, 2024 4:42 PM * Telephone Encounter - Tracie Landrum - 04/13/2024 9:03 AM EST Call received for Shawn Everett MD regarding Kvng Landry 1970. Caller: Self Patient Identified by Name and : Yes Was permission obtained from patient ? Yes Reason for Call: The patient called to inform Dr. Everett that all her imaging, including the MRI andX-ray, has been uploaded to [facility] and is available for his review and surgical evaluation. Last Office Visit: Visit date not found Last [facility] Health visit: Visit date not found Next scheduled appointment: Visit date not found Best number to reach caller: [phone] Best time to reach caller: Any Is it OK to leave a detailed voice message? Yes Tracie Sparks documented in this encounterK[facility]12-10-2024 Telephone encounter Note * Telephone Encounter - Mila Edge RN - 04/14/2024 4:41 PM EST Images from the original note were not included. NEUROSURGERY CARE COORDINATION [facility] QUICK NOTE Per Dr. Everett, patient to schedule follow up appointment. Routing to [facility] to call patient and assistwith scheduling follow up appointment to review and discuss images. Shawn Everett MD Dietz, Monica, RN22 hours ago (5:58 PM) Okay to schedule follow up TRINI León, RN April 14, 2024 4:42 PM [facility]12-10-2024 Telephone encounter Note* Telephone Encounter - Jovita Teixeira - 04/14/2024 9:15 AM EST Called patient to schedule est VV with Dr Everett imaging review and surgical discussion, no answer left voicemail [facility]12-10-2024 Miscellaneous Notes* Telephone Encounter - Jovita Teixeira - 04/14/2024 9:15 AM EST Called patient to schedule est VV with Dr Everett imaging review and surgical discussion, no answer left voicemail documented in this encounterK[facility]tering [facility]12-09-2024 Telephone encounter Note * Telephone Encounter - Tracie Landrum - 04/13/2024 9:03 AM EST Call received for Shawn Everett MD regarding Kvng Landry 1970. Caller: Self Patient Identified by Name and : Yes Was permission obtained from patient ? Yes Reason for Call: The patient called to inform Dr. Everett that all her imaging, including the MRI andX-ray, has been uploaded to [facility] and is available for his review and surgical evaluation. Last Office Visit: Visit date not found Last [facility] Health visit: Visit date not found Next scheduled appointment: Visit date not found Best number to reach caller: [phone] Best time to reach caller: Any Is it OK to leave a detailed voice message? Yes Tracie [facility]11-29-2024 NoteHNO ID: [id number] Author: SHAWN EVERETT MD Service: ? Author Type: Physician Type: Progress Notes Filed: 04/03/2024 10:23 Note Text: SPINE SURGERY NEW PATIENT I have communicated my name and active licensure. The patient's identity and physical location were verified at the time of this visit. Either the patient or their legal product sales representative has been informed of the risks and benefits of -- and alternatives to -- treatment through a remote evaluation and consents to proceed with the evaluation remotely. PCP: Elmer Richards MD REFERRING PROVIDER: No referring provider defined for this encounter. 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 I do not have the imaging on file, but severe L4-L5 stenosis according to the report. Unknown if the weakness is arising form the lumbar spine or the multiple sclerosis. The only way to be certain is unfortunately surgery. Therefore, I recommend the simplest surgery possible: lumbar decompression. 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 She is unsure if the weakness in the legs is arising from multiple sclerosis of the lumbar stenosis Major Risk Factors Obesity High Risk High: BMI > 40 Moderate: BMI 30-40 Normal: BMI < 30 Diabetes Unknown Risk High: A1C > 8 Moderate: A1C 7-8 Normal: A1C < 7 Hx of DVT / PE High Risk High: dx of DVT / PE Normal: no dx of DVT / PE Smoking normal High: Current smoker Normal: Non smoker Narcotics Use normal High:NarxCare >=300 Moderate: 100-299 Normal: 0-99 Depression Moderate Risk High: PHQ-9 >14 Moderate: PHQ-9 5-14 Normal: PHQ-9 < 5 Data from [facility] Epic Last PT session: No date on file in last 365 days Last Epidural Steroid Injection: No epidural injection on file for last 365 days Last Spine Surgery: No history of prior spine surgery in search of available [facility] records PAST MEDICAL HISTORY Diagnosis Date Atrioventricular block, second degree Bradycardia Coronary-myocardial bridge Depression Diabetes mellitus, type 2 (HCC) DVT, lower extremity (HCC) Essential hypertension History of myocardial infarction due to atherothrombotic coronary artery disease Hypothyroidism Malfunction of electrode lead of cardiac pacemaker atrial lead Mixed hyperlipidemia MS (multiple sclerosis) ([facility]) Multiple sclerosis ([facility]) Presence of cardiac pacemaker [employer] dual-chamber MRI conditional pacemaker system implanted 02/06/2021 for second degree AV block; system extracted (removed) 09/11/2023 due to lead malfunction; new Medtronic dual-chamber pacemaker system reimplanted (system will be MRI conditional after 6 weeks post implant) PVC (premature ventricular contraction) RA (rheumatoid arthritis) ([facility]) 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 Baer on 09/11/2023. Systemic lupus erythematosus ([facility]) PAST SURGICAL HISTORY Procedure Laterality Date BASIC PACEMAKER DUAL CHAMBER Left 02/06/2021 [employer] dual-chamber MRI conditional pacemaker system implanted for second degree AV block BASIC PACEMAKER DUAL CHAMBER Left 09/11/2023 [employer]tronic dual-chamber pacemaker system implant; RV septal lead, paced QRS duration 108 ms; system will be MRI conditional after 6 weeks post implant; [facility] Dr. Baer ECHOCARDIOGRAM 08/02/2023 [facility]; see scanned documents LAPAROSCOPY SURG CHOLECYSTECTOMY Cholecystectomy, lap NEUROPLASTY AND/TRANSPOS MEDIAN NRV CARPAL TUNNE Carpal tunnel decomp PACEMAKER - REMOVAL/REPOSITION LEAD DUAL Left 09/11/2023 [employer] dual-chamber pacemaker system extraction (removal); [facility] Dr. Baer PAST SURGICAL HISTORY OF uterine ablation TONSILLECTOMY PRIMARY/SECONDARY Tonsillectomy TOTAL ABDOMINAL HYSTERECT W/WO RMVL TUBE OVARY Hysterectomy, SHADY Current Outpatient Medications on File Prior to Visit Medication Sig TRUE METRIX GLUCOSE TEST STRIP test strip use 1 TEST STRIP to TEST BLOOD SUGAR four times a day TRUE METRIX GLUCOSE METER as directed. TRUEPLUS LANCETS 30 gauge use 1 LANCET to TEST BLOOD SUGAR four times a day LORazepam (ATIVAN) 1 mg tablet Take 1 tablet by mouth every 12 hours. cholecalciferol (VITAMIN D3) 1,000 unit tab tablet Take 1 tablet by mouth every afternoon. tiZANidine (ZANAFLEX) 4 mg tablet levothyrox (more content not included)...[facility]11-29-2024 History of Present illness Narrative* Shawn Everett MD - 04/03/2024 10:07 AM EST Images from the original note were not included. SPINE SURGERY NEW PATIENT I have communicated my name and active licensure. The patient's identity and physical location wereverified at the time of this visit. Either the patient or their legal product sales representative has been informed of the risks and benefits of -- and alternatives to -- treatment through a remote evaluation andconsents to proceed with the evaluation remotely. PCP: Elmer Richards MD REFERRING PROVIDER: No referring provider defined for this encounter. 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 I do not have the imaging on file, but severe L4-L5 stenosis according to the report. Unknown if the weakness is arising form the lumbar spine or the multiple sclerosis. The only way to be certain isunfortunately surgery. Therefore, I recommend the simplest surgery possible: lumbar decompression. 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 She is unsure if the weakness in the legs is arising from multiple sclerosis of the lumbar stenosis Major Risk Factors Obesity High Risk High: BMI > 40 Moderate: BMI 30-40 Normal: BMI < 30 Diabetes Unknown Risk High: A1C > 8 Moderate: A1C 7-8 Normal: A1C < 7 Hx of DVT / PE High Risk High: dx of DVT / PE Normal: no dx of DVT / PE Smoking normal High: Current smoker Normal: Non smoker Narcotics Use normal High:NarxCare >=300 Moderate: 100-299 Normal: 0-99 Depression Moderate Risk High: PHQ-9 >14 Moderate: PHQ-9 5-14 Normal: PHQ-9 < 5 Data from [facility] Epic Last PT session: No date on file in last 365 days Last Epidural Steroid Injection: No epidural injection on file for last 365 days Last Spine Surgery: No history of prior spine surgery in search of available [facility] records PAST MEDICAL HISTORY Diagnosis Date Atrioventricular block, second degree Bradycardia Coronary-myocardial bridge Depression Diabetes mellitus, type 2 ([facility]) DVT, lower extremity ([facility]) Essential hypertension History of myocardial infarction due to atherothrombotic coronary artery disease Hypothyroidism Malfunction of electrode lead of cardiac pacemaker atrial lead Mixed hyperlipidemia MS (multiple sclerosis) ([facility]) Multiple sclerosis (HCC) Presence of cardiac pacemaker [employer] dual-chamber MRI conditional pacemaker system implanted 02/06/2021 for second degree AV block; system extracted (removed) 09/11/2023 due to lead malfunction; new [employer] dual-chamber pacemaker system reimplanted (system will be MRI conditional after 6 weeks post implant) PVC (premature ventricular contraction) RA (rheumatoid arthritis) ([facility]) 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 Baer on 09/11/2023. Systemic lupus erythematosus ([facility]) PAST SURGICAL HISTORY Procedure Laterality Date BASIC PACEMAKER DUAL CHAMBER Left 02/06/2021 [employer] dual-chamber MRI conditional pacemaker system implanted for second degree AV block BASIC PACEMAKER DUAL CHAMBER Left 09/11/2023 [employer] dual-chamber pacemaker system implant; RV septal lead, paced QRS duration 108 ms; system will be MRI conditional after 6 weeks post implant; [facility] Dr. Baer ECHOCARDIOGRAM 08/02/2023 [facility]; see scanned documents LAPAROSCOPY SURG CHOLECYSTECTOMY Cholecystectomy, lap NEUROPLASTY &/TRANSPOS MEDIAN NRV CARPAL TUNNE Carpal tunnel decomp PACEMAKER - REMOVAL/REPOSITION LEAD DUAL Left 09/11/2023 [employer] dual-chamber pacemaker system extraction (removal); [facility] Dr. Baer PAST SURGICAL HISTORY OF uterine ablation TONSILLECTOMY PRIMARY/SECONDARY <AGE 12 Tonsillectomy TOTAL ABDOMINAL HYSTERECT W/WO RMVL TUBE OVARY Hysterectomy, SHADY Current Outpatient Medications on File Prior to Visit Medication Sig TRUE METRIX GLUCOSE TEST STRIP test strip use 1 TEST STRIP to TEST BLOOD SUGAR four times a day TRUE METRIX GLUCOSE METER as directed. TRUEPLUS LANCETS 30 gauge use 1 LANCET to TEST BLOOD SUGAR four times a day LORazepam (ATIVAN) 1 mg tablet Take 1 tablet by mouth every 12 hours. cholecalciferol (VITAMIN D3) 1,000 unit tab tablet Take 1 tablet by mouth every afternoon. tiZANidine (ZANAFLEX) 4 mg tablet levothyroxine (SYNTHROID) 150 mcg tablet Take 1 tablet by mouth every afternoon. insulin lispro (HUMALOG KWIKPEN) 100 unit/mL inject 10 units subcutaneously three times a day aspirin, enteric coated (ASPIRIN, ENTERIC COATED) 81 mg EC tablet Take 81 mg by mouth once daily. omega-3 fatty acids/fish oil (FISH OIL-OMEGA-3 FATTY ACIDS) 300-1,000 mg cap Take by mouth. Unwgnfpqvniky-Mihgwpma-Gnsaat (MULTIVITAMIN 50 PLUS) tab Take 1 tablet by mouth once daily. Ascorbic Acid (VITAMIN C) 1,000 mg tablet Take 1,000 mg by mouth once daily. diroximel fumarate (VUMERITY) 231 mg capsule, delayed release Take 462 mg by mouth two times a day. hydroCHLOROthiazide 25 mg tablet Take 25 mg by mouth once daily. rosuvastatin (CRESTOR) 5 mg tablet Take 5 mg by mouth once daily. metoprolol succinate ER (TOPROL XL) 50 mg 24 hr tablet Take 50 mg by mouth two times a day. insulin glargine (LANTUS SOLOSTAR U-100 INSULIN) 100 unit/mL (3 mL) Inject subcutaneously. gabapentin (NEURONTIN) 300 mg capsule Take 400 mg by mouth three times a day as needed (nerve pain). losartan (COZAAR) 50 mg tablet Take 50 mg by mouth two times a day. acetaminophen (TYLENOL) 500 mg tablet Take 1 tablet by mouth every 6 hours as needed. No current facility-administered medications on file prior to visit. Objective PHYSICAL EXAM LMP 08/08/2006 Moving all extremities Speaks without difficulty DATA REVIEW MRI L-spine: severe L4-L5 [facility] History of Present illness Narrative* Abby Webb APRN.COUNSELING CASE MANAGER - 03/11/2024 9:49 AM EST Per Triage: Kvng Landry is a 53 year old female that reports symptoms of back and BL leg pain, numbness, weakness, difficulty walking. + some trouble with hands- has an MS dx. + report of intermittent urinary incontinence. Referring provider: kelvin Severino Is this a 2nd opinion and offered surgery?: Yes, offered surgery Out of state: no BMI: 48 A1C: n/a Previous Spine Surgery: no CMT: PT Injections Tizanidine Gabapentin Diclofenac OTC NSAIDs Tylenol Studies (Reports unless indicated) XR Lumbar- non-dynamic anterolisthesis at L4-5 MRI T 02/21/24: No evidence of demyelinating disease in thoracic spine MRI L: Moderately severe central canal stenosis at L4-5 Conus terminates normally Disposition: Please schedule with lumbar spine surgeon. If the patient has lost control of bowel orbladder (does not sense the need to go), then she needs to go to the emergency department. Indications for recommendations: Not currently a candidate for elective lumbar surgery with a BMI >40. But reports of severe central stenosis and seeking a 2nd opinion. Please advise pt to send/upload images prior to visit or hand carry on CD to visit (spine MRIs, xrays) * Madhav Christiansen - 03/09/2024 9:43 AM EST Patient name: Kvng Landry Urinary incontinence /sometimes Are you being referred by a [facility] Provider or Pain Management Provider at [facility]? No If answer is "YES" please schedule directly with surgeon, triage does not need to be completed. Is this a self-referral No If not, who is the Referring Provider Dr. Ivan Severino Is this a 2nd opinion from another spine surgeon? Yes Were you offered surgery? Yes MRI/CT/myelogram within 12 months? Yes If "NO", please refer to medical spine or PCP to complete above imaging, triage does not need to be completed If "YES, please ask for the name/address of the facility where the MRI/CT/myelogram was completed: [facility] [address] [place] [address] MRI/CT/myelogram viewable in Epic: No If not, please provide [phone] to fax in imaging reports for review. Also, please inform patient to hand carry imaging disc to appointment. XR (spine) within 12 months: Yes If "YES, please ask for the name/address of the facility where the XR was completed: [facility] [address] [place] [address] Dr. Zhou's patients: Have you had previous EMG/Nerve Conduction Study, Ultrasound, or MRI for thesesame symptoms? If "YES, please ask for the name/address of the facility where they were completed: Requested provider (First and Last name): unknown Are you interested in a virtual visit if offered? 1. Where are you having symptoms related to this visit? Lumbar Spine Back pain Yes Leg pain Yes bilateral/ Rt side worst Arm pain No Neck pain Yes little bit 2. Are you having any of the following symptoms: Difficulty walking Yes Numbness Yes bilateral, feet Weakness Yes legs/arms/MS Trouble using your hands? Yes sometimes/MS 3. Have you had any injections or physical therapy in the last 12 months? Yes If "YES" then please ask for the name/address of the facility where the injections and/or physical therapy was completed Injection: [facility] [address], [place] [address] PT: [facility] [address], [place] [address] Have you tried any other kinds of non-surgical treatments in the last 12 months? (For example: NSAIDS, muscle relaxants, analgesics, oral steroids, Chiropractor, Acupuncture): Tizanidine, Gabapentin,Diclofenac, Ibuprofen, Aleve Tylenol 4. Are you currently taking daily prescribed narcotic medications for your current symptoms (For example Oxycodone, Hydrocodone, Tramadol, Morphine, Other)? No 5. Have you had previous spinal surgery for this same symptoms? No If "YES please ask for the name of facility/address of where the surgery was completed: Additional Comments [phone] [facility] Note ORIGINAL HISTORY: Multiple sclerosis COMPARISON: 25 June 2022 TECHNIQUE: 1. Axial and sagittal T1-weighted images. 2. Axial T2-weighted images. 3. Axial and sagittal FLAIR images. 4. Axial diffusion-weighted images with ADC map. 5. Axial, coronal and sagittal T1-weighted images following uncomplicated administration of intravenous gadolinium contrast. FINDINGS: The ventricles and sulci are mildly enlarged. There are no abnormal intra or extra-axial fluid collections. There are mild scattered punctate and nodular T2 hyperintensities in the cerebral white matter. There is mild T2 hyperintensity along the callososeptal interface. Bhakta-white matter differentiation is maintained. There is no abnormal restriction of diffusion. There is no abnormal enhancement of the brain or its coverings. The orbital contents are unremarkable in appearance. The paranasal sinuses are clear. IMPRESSION: No significant interval change. Interpreted by: Sha Gaitan MD Preliminary Report By: Sha Gaitan MD Electronically signed By Sha Gaitan MD Dictated Date: 02/24/2024 1:52:49 PM Prelim Date: 02/24/2024 2:07:27 PM Sign Date: 02/24/2024 2:07:27 PM Ordering Provider: [facility]10-18-2024 Note ORIGINAL EXAMINATION: MRI OF THE LUMBAR SPINE WITHOUT AND WITH CONTRAST 02/21/2024 12:47 pm TECHNIQUE: Multiplanar multisequence MRI of the lumbar spine was performed without and with the administration of intravenous contrast. COMPARISON: CT lumbar spine 07/02/2023. HISTORY: ORDERING SYSTEM PROVIDED HISTORY: Reason for Exam: Low back pain radiates down bilateral lower extremities with paresthesias and weakness, worse on the right. Saddle anesthesia since May FINDINGS: BONES/ALIGNMENT: 3 mm of anterolisthesis of L4 on L5 from facet hypertrophy. SPINAL CORD: The conus terminates normally. SOFT TISSUES: No abnormal enhancement is seen of the lumbar spine. No paraspinal mass identified. L1-L2: There is no significant disc protrusion, spinal canal stenosis or neural foraminal narrowing. L2-L3: There is no significant disc protrusion, spinal canal stenosis or neural foraminal narrowing. L3-L4: Facet hypertrophy. There is no significant disc protrusion, spinal canal stenosis or neural foraminal narrowing. L4-L5: Hypertrophic facet arthropathy results in about 3 mm of anterolisthesis of L4 on L5. There is moderately severe central canal stenosis without significant foraminal narrowing. L5-S1: Facet hypertrophy. There is no significant disc protrusion, spinal canal stenosis or neural foraminal narrowing. IMPRESSION: 1. Facet arthropathy at L3-L4 through L5-S1. 2. Moderately severe central canal stenosis at L4-L5 from facet hypertrophy and mild degenerative anterolisthesis. Interpreted by: Elmer Michel Preliminary Report By: Elmer Michel Electronically signed By Elmer Michel Dictated Date: 02/21/2024 12:49:45 PM Prelim Date: 02/21/2024 12:52:21 PM Sign Date: 02/21/2024 12:52:21 PM Ordering Provider[id number] Evaluation + Plan note Future Scheduled Tests Radiology* MRI Spine Cervical w/ + w/o Contrast 01/30/24 * MRI Spine Thoracic w/ + w/o Contrast 01/30/24 [facility] 06-17-2024 Hospital Discharge instructions Patient Education 10/21/2023 13:52:17 PM Discharge Instructions, No sed,[place] (08/05/20) (CUSTOM) [facility] Discharge Instructions POST PROCEDURE INSTRUCTIONS ___xx__There are no general limitations to your activities. You may experience some weakness for the next 3-4 hours, in which case you should limit your activity until strength and sensation returns. xx Your pain may increase for the next 24-48 hours, until the injection begins to relieve your pain. xx Rest at home today. Do not drive any vehicle, operate any heavy machinery or use any sharp objects for the remainder ofthe day. Be cautious of stairways, since your coordination may be impaired and do not drink alcoholic beverages or make major decisions for 24 hours. xx May resume driving a car in ___6 hours. xx Resume regular activity in 24 hours.. xx Resume your regular diet. Progress diet slowly, starting with water. If no difficulty with swallowing, progress to clear liquids (tea, broth, stephany mack) and then on to solids. xx Resume aspirin products/blood thinners in 24 hours. Start Lovenox injections on date . xx Keep bandaid dry and remove in 24 hours. MEDICATIONS: BEFORE PROCEDURE Physician s Pre-procedure Instruction Sheet given to patient. Stop Coumadin/Pradaxa/Eliquis/Xarelto for 5 days before procedure - date . Have ProTime drawn on (Try to have drawn at [facility] to speed results to us). Stop blood thinners Plavix, Pletal for 10 days before procedure date . Stop Aspirin, Persantine, Aggrenox for 7 days before procedure date . Stop Lovenox 24 hours before your appointment time. Stop anti-inflammatory medications (Aleve, Advil, Mobic, Naprosyn, etc.) for 5 days before procedure. Stop ALL Supplements and Vitamins for 10 days before your procedure. Take blood pressure medications the day of your procedure. Do not eat hours before procedure. Do not drink hours before procedure. May have clear liquids (water, plain tea/coffee, clear soda) up to 2 hours before procedure. Bring someone to drive you home. [facility] 06-17-2024 Summary of episode note Discharge Instructions Thank you for allowing [facility] to assist you with your healthcare needs. The following is importantdischarge information regarding your hospital visit. 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 What How Much When Why Instructions Last Dose Unchanged acetaminophen (Tylenol) 325 Milligram by mouth As needed for as needed for pain Unchanged aspirin (aspirin 81 mg oral delayed release tablet) 1 tab(s) by mouth Every day Unchanged buPROPion (buPROPion 100 mg/ 12 hours (SR) oral tablet, extended release) TAKE 1 TABLET BY MOUTH EVERY DAY Unchanged diclofenac (diclofenac sodium 50 mg oral delayed release tablet) 1 tab(s) by mouth Three (3) times a day Unchanged diroximel fumarate (Vumerity 231 mg oral delayed release capsule) 1 cap by mouth Two (2) times a day Unchanged gabapentin (gabapentin 100 mg oral capsule) 1 cap by mouth Two (2) times a day Foraminal stenosis of lumbosacral region Duration: 90 Days Unchanged gabapentin (gabapentin 300 mg oral capsule) 1 cap by mouth Two (2) times a day Lumbar radiculopathy Duration: 90 Days Unchanged hydroCHLOROthiazide (hydroCHLOROthiazide 25 mg oral tablet) TAKE 1 TABLET BY MOUTH ONCE DAILY Unchanged insulin glargine (Lantus) 30 unit(s) Subcutaneous Once a day Unchanged insulin lispro (HumaLOG) (Insulin Lispro KwikPen 100 units/ mL injectable solution) 16 unit(s) Three (3) times a day before meals Unchanged levothyroxine 150 Microgram Once a day Unchanged losartan (losartan 50 mg oral tablet) TAKE 1 TABLET BY MOUTH TWICE A DAY Unchanged metoprolol (Metoprolol Succinate ER 50 mg oral TABLET extended release) 2 tab(s) by mouth Once a day Unchanged modafinil (modafinil 200 mg oral tablet) 1 tab(s) by mouth Once a day (in the morning) Unchanged rosuvastatin (rosuvastatin 5 mg oral tablet) 1 tab(s) by mouth Once a day Unchanged tiZANidine (tiZANidine 4 mg oral tablet) 1 tab(s) by mouth Daily at bedtime Duration: 90 Days Please take this list to your next doctor s visit. Bring all medications you take, including over the counter medications, herbals and other supplements with you to your doctor s visit. Patients and families are reminded to discard old lists and to update any records with all medication providers or retail pharmacies. Education Materials [facility] Discharge Instructions POST PROCEDURE INSTRUCTIONS ___xx__There are no general limitations to your activities. You may experience some weakness for the next 3-4 hours, in which case you should limit your activity until strength and sensation returns. xx Your pain may increase for the next 24-48 hours, until the injection begins to relieve your pain. xx Rest at home today. Do not drive any vehicle, operate any heavy machinery or use any sharp objects for the remainder ofthe day. Be cautious of stairways, since your coordination may be impaired and do not drink alcoholic beverages or make major decisions for 24 hours. xx May resume driving a car in ___6 hours. xx Resume regular activity in 24 hours.. xx Resume your regular diet. Progress diet slowly, starting with water. If no difficulty with swallowing, progress to clear liquids (tea, broth, stephany mack) and then on to solids. xx Resume aspirin products/blood thinners in 24 hours. Start Lovenox injections on date . xx Keep bandaid dry and remove in 24 hours. MEDICATIONS: BEFORE PROCEDURE Physician s Pre-procedure Instruction Sheet given to patient. Stop Coumadin/Pradaxa/Eliquis/Xarelto for 5 days before procedure - date . Have ProTime drawn on (Try to have drawn at [facility] to speed results to us). Stop blood thinners Plavix, Pletal for 10 days before procedure date . Stop Aspirin, Persantine, Aggrenox for 7 days before procedure date . Stop Lovenox 24 hours before your appointment time. Stop anti-inflammatory medications (Aleve, Advil, Mobic, Naprosyn, etc.) for 5 days before procedure. Stop ALL Supplements and Vitamins for 10 days before your procedure. Take blood pressure medications the day of your procedure. Do not eat hours before procedure. Do not drink hours before procedure. May have clear liquids (water, plain tea/coffee, clear soda) up to 2 hours before procedure. Bring someone to drive you home. Additional Information VACCINATE! IT SAVES LIVES! Members of the community who have not yet received the COVID-19 vaccine and would like to receive it can visit one of [facility] vaccine clinics. There are many vaccine clinic locations within the [facility]. For locations and available times, please visit [email or web address] It is important to note that some COVID mobile vaccine clinics are held outdoors and may be canceled in rainy or stormy conditions. To learn more about pediatric vaccinations (ages 5-11), we invite you to visit the [facility] webpage. [email or web address] learn more about the COVID-19 vaccine, we invite you to visit the CDC website for a list of frequently asked questions.https://www.cdc.gov/coronavirus/2019-ncov/vaccines/faq.html [facility] Patient Portal Access Instructions: Stay connected with your healthcare team and access your personal medical information anytime with the [facility] Patient Portal. Please follow the directions below to create your [facility] account: 1.Access the email account you provided upon registration to the hospital/physician office.2.Look for an invitation email from [facility].3.Open the email and access the invitation link: AcceptInvitation to [facility].4.Fill in the required horowitz to create your account. To access your account, visit [employer]Feedlookst. Click the blue button labeled "Access Patient Portal" and then log in with the username and password that you created in the steps above. You will be able to view your test results, lab results, a summary of your visits, upcoming appointments and more. There is also a convenient messaging option where you can send secure messages to your p rovider. In addition, you will have the ability to download any documents or summaries to your computer and/or send the information securely to a physician. Remember that your healthcare information is confidential, so carefully consider who you will allowto register on the [facility] Patient Portal for access to your information. You can also access the [facility] Patient Portal on the [facility] rebeka. Simply click on "Patient Portal" and then log into your account. If you would like to receive a full copy of your medical records, please contact the [facility] Medical Records Department by calling [phone], Saturday through Saturday between 8 a.m. and 4:30 p.m. HOW TO SAFELY DISPOSE OF PRESCRIPTION MEDICATIONS Please use one of the following methods to safely dispose of your unused medications. 1.Use a drug disposal kit: the drug disposal pouch allows you to safely discard your old and unuseddrugs. Ask your nurse to give you one when you are discharged.2.Visit a local take-back location: Many local pharmacies and police departments have programs that collect old and unwanted prescriptiondrugs. Call your local pharmacy or go to http://bit.ly/1G7Cc4q to find one close to you.3.Make use of household items: Use cat litter or old coffee grounds to dispose medications if other options arenot available. Mix your drugs with these household products, seal them in an airtight container andthrow it into the garbage. Call [facility]: [phone] to be sure your drugs can be disposed of in this way. Some medicines may require a different approach.4.Never flush your medications down the toilet. IF YOU HAVE BEEN PRESCRIBED AN OPIOID FOR PAIN If you have been prescribed an opioid (such as hydrocodone, oxycodone or morphine), it is critical to understand the possible side effects and risks of opioid pain medications. Even when taken as directed, opioids can have several side effects including: Tolerance, meaning you might need to take more of a medication for the same pain relief. Nausea, vomiting and/or constipation. Sleepiness, dizziness, dry mouth, confusion, depression or itching. Physical dependence, meaning you have withdrawal symptoms when a medication is stopped, can develop within a few days. KNOW YOUR RESPONSIBILITIES It is important to know exactly how much and how often to take the opioid pain medications you are prescribed. Never take opioids in higher amounts or more often than prescribed. Do not combine opioids with alcohol or other drugs that cause drowsiness, such as benzodiazepines, also known as benzos, including diazepam and alprazolam, muscle relaxants or sleep aids. Never sell or share prescription opioids. This is illegal. Store opioids in a secure place and out of reach of others (including children, family, friends and visitors). The last page of this document has been signed and retained as a CHART COPY. Signatures Patient Education Materials PM Discharge Instructions, No Kaushik armstrong (08/05/20) (CUSTOM) Medication Leaflets My discharge plan and instructions have been reviewed and explained to me and IGRIS CYNTHIA A understand my current condition and have read and understand these discharge instructions. I have received a written copy of the plan/instructions. If I have questions, I am aware that I should contactmy doctor. Patient/Art Director Signature: Date/Time: Relationship to Patient: Witness Name/Signature: Date/Time: [facility] Pain [id number] Telephone encounter Note* Telephone Encounter - Deidre Villa LPN - 09/13/2023 5:07 PM EDT Voicemail msg left for patient to return call to [facility] to review test results. Office phone number provided. Deidre Villa LPN [facility]05-10-2024 Miscellaneous Notes* Telephone Encounter - Deidre Villa LPN - 09/13/2023 5:07 PM EDT Voicemail msg left for patient to return call to [facility] to review test results. Office phone number provided. Deidre Villa LPN * Telephone Encounter - Tyler Baer MD - 09/13/2023 4:52 PM EDT [facility] [place] [facility] Electrophysiology (EP) So it seems the swelling in her hand is not from a DVT, which is good news. It should resolve with time. If it worsens she should see her PCP about it. Tyler Baer MD September 13, 2023 4:52 PM * Telephone Encounter - Deidre Villa LPN - 09/13/2023 1:16 PM EDT [place] nurse called [facility] to give preliminary results of ultrasound: right arm negative for DVT; left arm looks negative for DVT- with continuous flow in subclavian and axillary vein in left arm. Results are being faxed over to office for review. Deidre Villa LPN * Telephone Encounter - Yadi Sena LPN - 09/13/2023 10:33 AM EDT Spoke to Eden from [facility] she is asking for clarification on the type of ultrasound Dr. Baer is asking for based on patient's symptoms. She stated they will place the orders for patient at [facility] as soon as they can have clarification. Yadi Sena LPN * Telephone Encounter - Yadi Sena LPN - 09/13/2023 10:21 AM EDT Spoke to Ms. Landry about recommendations. Patient voiced understanding at this time. Provided number for [facility] for patient to reach out about orders. Yadi Sena LPN * Telephone Encounter - Tyler Baer MD - 09/13/2023 10:[address] [facility] General Electrophysiology (EP) She might have a DVT involving the left subclavian vein where the pacing wires were placed. She should have an ultrasound to check for that, and if present she might need a short course of an anticoagulant. It might be easier for her to get the ultrasound at [facility]. Can she contact Milvia Negron of [facility] and see if they can order an ultrasound there? Tyler Baer MD September 13, 2023 10:15 AM * Telephone Encounter - Yadi Sena LPN - 09/13/2023 8:33 AM EDT Ms. Landry is calling in because patient states she has been experiencing swelling in her hands. Patient states this has been occurring since her procedure for pacemaker on 09/11/2023. Patient notes noother swelling anywhere at this time. Patient denies shortness of breath or any other symptoms at this time. Yadi Sena LPN [facility] Telephone encounter Note * Telephone Encounter - Tyler Baer MD - 09/13/2023 4:52 PM EDT [facility] [place] [facility] (EP) So it seems the swelling in her hand is not from a DVT, which is good news. It should resolve with time. If it worsens she should see her PCP about it. Tyler Baer MD September 13, 2023 4:52 PM [facility]05-10-2024 Telephone encounter Note* Telephone Encounter - Deidre Villa LPN - 09/13/2023 1:16 PM EDT [place] nurse called [facility] to give preliminary results of ultrasound: right arm negative for DVT; left arm looks negative for DVT- with continuous flow in subclavian and axillary vein in left arm. Results are being faxed over to office for review. Deidre Villa LPN [facility]05-10-2024 Telephone encounter Note* Telephone Encounter - Yadi Sena LPN - 09/13/2023 10:33 AM EDT Spoke to Eden from [facility] she is asking for clarification on the type of ultrasound Dr. Baer is asking for based on patient's symptoms. She stated they will place the orders for patient at [facility] as soon as they can have clarification. Yadi Sena LPN [facility]05-10-2024 Telephone encounter Note* Telephone Encounter - Yadi Sena LPN - 09/13/2023 10:21 AM EDT Spoke to Ms. Landry about recommendations. Patient voiced understanding at this time. Provided number for [facility] for patient to reach out about orders. Yadi Sena LPN [facility]05-10-2024 Telephone encounter Note* Telephone Encounter - Tyler Baer MD - 09/13/2023 10:13 AM EDT [facility] [place] [facility] (EP) She might have a DVT involving the left subclavian vein where the pacing wires were placed. She should have an ultrasound to check for that, and if present she might need a short course of an anticoagulant. It might be easier for her to get the ultrasound at [facility]. Can she contact Milvia Negron of [facility] and see if they can order an ultrasound there? Tyler Baer MD September 13, 2023 10:15 AM [facility]05-10-2024 Telephone encounter Note* Telephone Encounter - Yadi Sena LPN - 09/13/2023 8:33 AM EDT Ms. Landry is calling in because patient states she has been experiencing swelling in her hands. Patient states this has been occurring since her procedure for pacemaker on 09/11/2023. Patient notes noother swelling anywhere at this time. Patient denies shortness of breath or any other symptoms at this time. Yadi Sena LPN [facility]05-08-2024 Telephone encounter Note* Telephone Encounter - Tyler Baer MD - 09/11/2023 2:55 PM EDT [facility] [place] [facility] (EP) Ms. Landry had pacemaker system extraction with reimplant of new system 09/11/2023. She will follow up with [facility] and also with Eden Lopez RN of [facility]. In the past Eden was also comfortable with doing the wound check and Aquacel dressing removal. Giovanni Puentes of [facility] did send Eden Lopez a message alerting her to the need for follow up from pacemaker standpoint but you might want to confirm with her that she will do the wound check and Aquacel dressing removal in about 10 days. Thank you everyone Tyler Baer MD September 11, 2023 2:57 PM [facility]05-08-2024 Miscellaneous Notes* Telephone Encounter - Tyler Baer MD - 09/11/2023 2:55 PM EDT [facility] General Electrophysiology (EP) Ms. Landry had pacemaker system extraction with reimplant of new system 09/11/2023. She will follow up with [facility] and also with Eden Lopez RN of [facility]. In the past Eden was also comfortable with doing the wound check and Aquacel dressing removal. Giovanni Puentes of [facility] did send Eden Lopez a message alerting her to the need for follow up from pacemaker standpoint but you might want to confirm with her that she will do the wound check and Aquacel dressing removal in about 10 days. Thank you everyone Tyler Baer MD September 11, 2023 2:57 PM documented in [facility] History of Present illness Narrative* Dhaval Licona APRN.COUNSELING CASE MANAGER - 09/05/2023 10:00 AM EDT Images from the original note were not included. [facility] Cardiology Electrophysiology PRIMARY CARE PHYSICIAN: Elmer Richards ([facility]) [address] [place] [address] CHIEF COMPLAINT: History and physical update prior to pacemaker system extraction with Dr. Baer on 09/11/2023. HISTORY OF PRESENT ILLNESS copied from Dr. Baer's office note on 07/18/2023: Ms. Ladnry is a 52 year old female who presents today for evaluation of her pacemaker. She has history of heart block, had pacemaker implanted in February 2021, a [employer] dual-chamber pacemaker. She has developed malfunction of the atrial lead, with electrical noise and increased impedancevalues indicative of conductor fracture. She has not had any problems with the pacemaker site, suchas redness, swelling, pain, tenderness, drainage. No severe lightheadedness, near syncope or syncope. She was evaluated by [facility] for consideration of atrial lead revision, but it was recommendedthat this be deferred until the time of pacemaker battery depletion as the atrial lead malfunction could be managed otherwise during that period of time. However, she tells me that she has multiple sclerosis, has ongoing and recurring need for MRI scans for this condition. [facility] has told her that she cannot safely undergo MRI due to the potential conductor fracture of the atrial lead.But the MRI is evidently necessary for the guidance of treatment or management of the MS. I have confirmed and edited as necessary, the PFSH and ROS obtained by others. Interval History: Kvng is a pleasant 53-year-old female who presents today for history and physical update prior to pacemaker system extraction with Dr. Baer on 09/11/2023. Patient originally underwent implantation of dual- chamber permanent pacemaker in February 2021. Device check from March 2023 revealed bipolar right atrial lead impedance of greater than 3000 ohms. For the last 6 months plus patient endorses symptoms of shortness of breath as well as a deep ache in her left chest that randomly comes and goes regardless of activity. Additionally she does endorse some increased swelling in her bilateral lower extremities. Complex medical history includes recent diagnosis of lupus in addition to multiple sclerosis. Echo from July 2023 showed normal left ventricle size with an EF of 55% without any regional wall motion abnormalities. Lengthy discussion was had with patient regarding what to expect pre-/intra-/post procedure. Topics included procedure overview, CTS backup, general anesthesia, risk/benefits, overnight stay in CVICU, recovery, post restrictions, medications, and follow-up. Benefits include extraction of atrial lead as well as likely extraction of ventricular lead for optimization of electrical efficiency. We did discuss overall complication rate of extractions of roughly 5% including but not limited to bleeding, stroke, or . Patient is willing to receive blood products if warranted. We discussed theoretically in extremely rare emergent situations cardiothoracic surgical team may have to crack chest open to extract pacemaker system. Patient was instructed to eat and drink well day before procedure with nothing after midnight except for medications with small sips of water. I did advise her to hold her morning Humalog. Medications, allergies, and medical history were reviewed with patient. Kvng indicated I had answered all of her questionsand she would like to move forward with procedure. PAST MEDICAL HISTORY Diagnosis Date Atrioventricular block, second degree Bradycardia Coronary-myocardial bridge Depression Diabetes mellitus, type 2 ([facility]) DVT, lower extremity ([facility]) Essential hypertension History of myocardial infarction due to atherothrombotic coronary artery disease Hypothyroidism Malfunction of electrode lead of cardiac pacemaker atrial lead Mixed hyperlipidemia MS (multiple sclerosis) ([facility]) Multiple sclerosis ([facility]) Presence of cardiac pacemaker [employer] dual-chamber MRI conditional pacemaker system implanted 02/06/2021 for second degree AV block PVC (premature ventricular contraction) RA (rheumatoid arthritis) ([facility]) Right bundle branch block (RBBB) Right bundle branch block (RBBB) with left anterior fascicular block (LAFB) 02/06/2021 Systemic lupus erythematosus ([facility]) PAST SURGICAL HISTORY Procedure Laterality Date BASIC PACEMAKER DUAL CHAMBER Left 02/06/2021 [employer] dual-chamber MRI conditional pacemaker system implanted for second degree AV block ECHOCARDIOGRAM 08/02/2023 [facility]; see scanned documents LAPAROSCOPY SURG CHOLECYSTECTOMY Cholecystectomy, lap NEUROPLASTY &/TRANSPOS MEDIAN NRV CARPAL TUNNE Carpal tunnel decomp PAST SURGICAL HISTORY OF uterine ablation TONSILLECTOMY PRIMARY/SECONDARY <AGE 12 Tonsillectomy TOTAL ABDOMINAL HYSTERECT W/WO RMVL TUBE OVARY Hysterectomy, SHADY Social History Tobacco Use Smoking status: Former Packs/day: 0.30 Years: 1.50 Additional pack years: 0.00 Total pack years: 0.45 Types: Cigarettes Quit date: 2001 Years since quittin.0 Smokeless tobacco: Never Vaping Use Vaping Use: Never used Substance Use Topics Alcohol use: Yes Comment: few times per week Drug use: No Family History Adopted: Yes Problem Relation Age of Onset No Known Problems Mother adopted, but knows some medical facts about mother other (other) Father adopted, does not know anything about father Breast Cancer Maternal Grandmother Alcohol abuse Maternal Grandfather ALLERGIES Allergen Reactions Codeine Anaphylaxis, Other: See Comments Erythromycin Rash, Swelling Toradol [Ketorolac] Itching Given with Vicodin at the time of the reaction. Vicodin [Hydrocodon* Itching Given with Toradol at the time of the reaction. Amlodipine Other: See Comments Cefdinir Other: See Comments Copaxone [Glatirame* Shortness of Breath Hydrocodone Other: See Comments Jardiance [Empaglif* Other: See Comments Chronic yeast infection Penicillins Hives MEDICATIONS: TRUE METRIX GLUCOSE TEST STRIP test strip use 1 TEST STRIP to TEST BLOOD SUGAR four times a day TRUE METRIX GLUCOSE METER as directed. TRUEPLUS LANCETS 30 gauge use 1 LANCET to TEST BLOOD SUGAR four times a day LORazepam (ATIVAN) 1 mg tablet Take 1 tablet by mouth every 12 hours. cholecalciferol (VITAMIN D3) 1,000 unit tab tablet Take 1 tablet by mouth every afternoon. tiZANidine (ZANAFLEX) 4 mg tablet levothyroxine (SYNTHROID) 150 mcg tablet Take 1 tablet by mouth every afternoon. insulin lispro (HUMALOG KWIKPEN) 100 unit/mL inject 10 units subcutaneously three times a day aspirin, enteric coated (ASPIRIN, ENTERIC COATED) 81 mg EC tablet Take 81 mg by mouth once daily. omega-3 fatty acids/fish oil (FISH OIL-OMEGA-3 FATTY ACIDS) 300-1,000 mg cap Take by mouth. Joudnxevmzjkl-Cfhozhtr-Vviwhb (MULTIVITAMIN 50 PLUS) tab Take 1 tablet by mouth once daily. Ascorbic Acid (VITAMIN C) 1,000 mg tablet Take 1,000 mg by mouth once daily. diroximel fumarate (VUMERITY) 231 mg capsule, delayed release Take 462 mg by mouth two times a day. hydroCHLOROthiazide 25 mg tablet Take 25 mg by mouth once daily. rosuvastatin (CRESTOR) 5 mg tablet Take 5 mg by mouth once daily. metoprolol succinate ER (TOPROL XL) 50 mg 24 hr tablet Take 50 mg by mouth two times a day. insulin glargine (LANTUS SOLOSTAR U-100 INSULIN) 100 unit/mL (3 mL) Inject subcutaneously. gabapentin (NEURONTIN) 300 mg capsule Take 400 mg by mouth three times a day as needed (nerve pain). losartan (COZAAR) 50 mg tablet Take 50 mg by mouth two times a day. acetaminophen (TYLENOL) 500 mg tablet Take 1 tablet by mouth every 6 hours as needed. REVIEW OF SYSTEMS: Review of Systems Constitutional: Negative. HENT: Negative. Respiratory: Positive for shortness of breath. Cardiovascular: Positive for leg swelling. + Chest ache Gastrointestinal: Negative. Endocrine: Negative. Genitourinary: Negative. Musculoskeletal: Negative. Skin: Negative. Neurological: Negative. Psychiatric/Behavioral: Negative. PHYSICAL EXAMINATION: BP 113/81 Pulse 75 Ht 5' 1" (1.55m) Wt 248 lb 9.6 oz (112.8kg) SpO2 99% LMP 08/08/2006 BMI 47.00 kg/(m^2). Physical Exam Constitutional: Comments: + Morbidly obese Cardiovascular: Rate and Rhythm: Normal rate and regular rhythm. Pulses: Normal pulses. Radial pulses are 2+ on the right side and 2+ on the left side. Posterior tibial pulses are 2+ on the right side and 2+ on the left side. Heart sounds: Normal heart sounds. Pulmonary: Effort: Pulmonary effort is normal. Breath sounds: Normal breath sounds. Chest: Comments: Well-healed pink incisional pacemaker site scar. No signs of bleeding or infection. Abdominal: General: Bowel sounds are normal. Palpations: Abdomen is soft. Musculoskeletal: Right lower leg: Edema present. Left lower leg: Edema present. Skin: General: Skin is warm and dry. Neurological: Mental Status: She is alert and oriented to person, place, and time. Psychiatric: Mood and Affect: Mood normal. Behavior: Behavior normal. CARDIOVASCULAR MEDICINE TESTING: Device check 04/01/2023 RA pacing burden 42%. RV pacing burden 98%. Bipolar impedance of right atrial lead greater than 3000 ohms. Echo 08/02/2023 Normal size left ventricle. EF of 55%. No regional wall motion abnormalities. PLAN AND RECOMMENDATIONS: ASSESSMENT/PLAN: 1. Presence of cardiac pacemaker - ICD9: V45.01, ICD10: Z95.0 (primary diagnosis) Pleasant 53-year-old female who underwent implantation of dual-chamber permanent pacemaker in February 2021. Device check from 04/01/2023 revealed right atrial lead impedance of greater than 3000 ohms. RA pacing burden of 42% with RV pacing burden 98%. Profound atrial lead impedance indicative of either lead fracture or malfunction. Decision was made to move forward with extraction of right atriallead as well as likely RV lead to improve electrical efficiency. Lengthy discussion was had regarding procedure. Topics included procedure overview, CTS backup, general anesthesia, risk/benefits, overnight stay in CVICU, recovery, post restrictions, medications, and follow-up. Benefits include extraction of atrial lead as well as likely extraction of ventricular lead for optimization of electrical efficiency. We did discuss overall complication rate of extractions of roughly 5% including but not limited to bleeding, stroke, or . Patient is willing to receive blood products if warranted. We discussed theoretically in extremely rare emergent situations cardiothoracic surgical team may have to crack chest open to extract pacemaker system. Patient was instructed to eat and drink well daybefore procedure with nothing after midnight except for medications with small sips of water. I didadvise her to hold her morning Humalog. Medications, allergies, and medical history were reviewed with patient. Kvng verbalized that I had answered all of her questions and she has nothing furtherat this time. Patient would like to move forward with procedure. 2. Malfunction of cardiac pacemaker, subsequent encounter - ICD9: V58.89, 996.01, ICD10: T82.111D As above. 3. Rheumatoid arthritis, involving unspecified site, unspecified whether rheumatoid factor present (HCC) - ICD9: 714.0, ICD10: M06.9 As above. 4. Systemic lupus erythematosus, unspecified SLE type, unspecified organ involvement status (HCC) -ICD9: 710.0, ICD10: M32.9 As above. 5. Obesity, Class III, BMI >= 40 - ICD9: 278.01, ICD10: E66.01 Current BMI listed at 46.97. 6. Other fatigue - ICD9: 780.79, ICD10: R53.83 As above. 7. Essential (primary) hypertension - ICD9: 401.9, ICD10: I10 BP today 113/81. Return for Hospital will call day before procedure for when to show up on 09/10.. Dhaval Licona APRN.COUNSELING CASE MANAGER documented [facility]* Regine Will MA - 09/05/2023 9:48 AM EDT Pt would like to address SOB AND RECENT LAB RESULTS [facility]05-02-2024 Nurse Note* Regine Will MA - 09/05/2023 9:48 AM EDT Pt would like to address SOB AND RECENT LAB RESULTS documented in this encounterK[facility]04-22-2024 Telephone encounter Note * Telephone Encounter - Carolina Silverman RN - 08/26/2023 11:24 AM EDT Pt's name has been added to colp procedure board. Carolina Silverman RN [facility]04-22-2024 Miscellaneous Notes* Telephone Encounter - Carolina Silverman RN - 08/26/2023 11:24 AM EDT Pt's name has been added to garcia procedure board. Carolina Silverman RN * Telephone Encounter - Bernard Fournier - 08/26/2023 10:48 AM EDT Patient is scheduled for an Extraction/Reimplant on 09/[address] Baer. The hospital will callthe day before between 2-5pm with your arrival time. You should not eat or drink after midnight the day before the procedure. You will need a emt driver when released from the hospital and you will stay overnight for observation. You should continue to take medications as prescribed the morning of the procedure with just a sip of water unless otherwise instructed. H&P update on 09/04 at 10a with Dhaval Gage [address] [place] [address] Spoke with Kvng Landry on August 26, 2023. Informed of instructions as stated above. Patient verbalized understanding. Bernard Fournier documented in this encounterK[facility]04-[facility]-2024 Telephone encounter Note * Telephone Encounter - Bernard Fournier - 08/26/2023 10:48 AM EDT Patient is scheduled for an Extraction/Reimplant on 09/[address] Baer. The hospital will callthe day before between 2-5pm with your arrival time. You should not eat or drink after midnight the day before the procedure. You will need a emt driver when released from the hospital and you will stay overnight for observation. You should continue to take medications as prescribed the morning of the procedure with just a sip of water unless otherwise instructed. H&P update on 09/04 at 10a with Dhaval Licona [address] [place] [address] Spoke with Kvng Landry on August 26, 2023. Informed of instructions as stated above. Patient verbalized understanding. Bernard Fournier [facility]03-26-2024 Miscellaneous Notes* Telephone Encounter - Tyler Baer MD - 07/30/2023 5:[address] [facility] General Electrophysiology (EP) Please let Ms. Landry know that we are working on getting her pacemaker extraction procedure scheduled. In the meantime, I need for her to have an updated echocardiogram. The last one I can find is from 2020. She can have it done at [facility], I sent them a note so they should be willing to order it. If one has been completed in the past 6 months then I do not have it and it should be sent to me. Otherwise, she needs to contact [facility] and have the echocardiogram completed. Thank you Tyler Baer MD July 30, 2023 5:52 PM documented in this encounterK[facility]03-14-2024 History of Present illness Narrative* Tyler Baer MD - 07/18/2023 3:20 PM EDT PRIMARY CARE PHYSICIAN: Elmer Richards ([facility]) [address] [place] [address] REFERRING PHYSICIAN: Michael Liu MD ([facility]) [address] [place] [id number] Patient Care Team: Elmer Richards MD as PCP - General (Family Medicine) [facility], Sushil Casey as Referring (Neurology) Michael Liu MD (Cardiology) Group, [facility] as Specialty Title 1 Tutor (Cardiology) CHIEF COMPLAINT: Evaluation of pacemaker HISTORY OF PRESENT ILLNESS: Ms. Landry is a 52 year old female who presents today for evaluation of her pacemaker. She has history of heart block, had pacemaker implanted in February 2021, a [employer] dual-chamber pacemaker. She has developed malfunction of the atrial lead, with electrical noise and increased impedancevalues indicative of conductor fracture. She has not had any problems with the pacemaker site, suchas redness, swelling, pain, tenderness, drainage. No severe lightheadedness, near syncope or syncope. She was evaluated by [facility] for consideration of atrial lead revision, but it was recommendedthat this be deferred until the time of pacemaker battery depletion as the atrial lead malfunction could be managed otherwise during that period of time. However, she tells me that she has multiple sclerosis, has ongoing and recurring need for MRI scans for this condition. [facility] has told her that she cannot safely undergo MRI due to the potential conductor fracture of the atrial lead.But the MRI is evidently necessary for the guidance of treatment or management of the MS. I have confirmed and edited as necessary, the PFSH and ROS obtained by others. PAST MEDICAL HISTORY Diagnosis Date Atrioventricular block, second degree Bradycardia Coronary-myocardial bridge Depression Diabetes mellitus, type 2 (HCC) DVT, lower extremity (HCC) Essential hypertension History of myocardial infarction due to atherothrombotic coronary artery disease Hypothyroidism Malfunction of electrode lead of cardiac pacemaker atrial lead Mixed hyperlipidemia MS (multiple sclerosis) ([facility]) Multiple sclerosis ([facility]) Presence of cardiac pacemaker [employer] dual-chamber MRI conditional pacemaker system implanted 02/06/2021 for second degree AV block PVC (premature ventricular contraction) RA (rheumatoid arthritis) ([facility]) Right bundle branch block (RBBB) Right bundle branch block (RBBB) with left anterior fascicular block (LAFB) 02/06/2021 Systemic lupus erythematosus ([facility]) PAST SURGICAL HISTORY Procedure Laterality Date BASIC PACEMAKER DUAL CHAMBER Left 02/06/2021 [employer] dual-chamber MRI conditional pacemaker system implanted for second degree AV block LAPAROSCOPY SURG CHOLECYSTECTOMY Cholecystectomy, lap NEUROPLASTY &/TRANSPOS MEDIAN NRV CARPAL TUNNE Carpal tunnel decomp PAST SURGICAL HISTORY OF uterine ablation TONSILLECTOMY PRIMARY/SECONDARY <AGE 12 Tonsillectomy TOTAL ABDOMINAL HYSTERECT W/WO RMVL TUBE OVARY Hysterectomy, SHADY SOCIAL HISTORY Social History Tobacco Use Smoking status: Former Packs/day: 0.30 Years: 1.50 Additional pack years: 0.00 Total pack years: 0.45 Types: Cigarettes Quit date: 2001 Years since quittin.9 Smokeless tobacco: Never Vaping Use Vaping Use: Never used Substance Use Topics Alcohol use: Yes Comment: few times per week Drug use: No FAMILY HISTORY Adopted: Yes Problem Relation Age of Onset No Known Problems Mother adopted, but knows some medical facts about mother other (other) Father adopted, does not know anything about father Breast Cancer Maternal Grandmother Alcohol abuse Maternal Grandfather ALLERGIES: ALLERGIES Allergen Reactions Codeine Anaphylaxis, Other: See Comments Erythromycin Rash, Swelling Toradol [Ketorolac] Itching Given with Vicodin at the time of the reaction. Vicodin [Hydrocodon* Itching Given with Toradol at the time of the reaction. Amlodipine Other: See Comments Acetaminophen Other: See Comments Other reaction(s): syncope Cefdinir Other: See Comments Copaxone [Glatirame* Shortness of Breath Hydrocodone Other: See Comments Jardiance [Empaglif* Other: See Comments Chronic yeast infection Penicillins Hives MEDICATIONS: TRUE METRIX GLUCOSE TEST STRIP test strip use 1 TEST STRIP to TEST BLOOD SUGAR four times a day TRUE METRIX GLUCOSE METER as directed. TRUEPLUS LANCETS 30 gauge use 1 LANCET to TEST BLOOD SUGAR four times a day diazePAM (VALIUM) 5 mg tablet take 1 tablet by mouth 20 TO 30 MINUTES PRIOR TO MRI MAY TAKE 2ND DOSE IF NEEDED diclofenac, EC, (VOLTAREN) 50 mg EC tablet Take 1 tablet by mouth three times a day. LORazepam (ATIVAN) 1 mg tablet Take 1 tablet by mouth every 12 hours. cholecalciferol (VITAMIN D3) 1,000 unit tab tablet Take 1 tablet by mouth every afternoon. tiZANidine (ZANAFLEX) 4 mg tablet levothyroxine (SYNTHROID) 150 mcg tablet Take 1 tablet by mouth every afternoon. insulin lispro (HUMALOG KWIKPEN) 100 unit/mL inject 10 units subcutaneously three times a day aspirin, enteric coated (ASPIRIN, ENTERIC COATED) 81 mg EC tablet Take 81 mg by mouth once daily. omega-3 fatty acids/fish oil (FISH OIL-OMEGA-3 FATTY ACIDS) 300-1,000 mg cap Take by mouth. Kxabesytywhzc-Zwhxaolh-Ryrnjc (MULTIVITAMIN 50 PLUS) tab Take 1 tablet by mouth once daily. Ascorbic Acid (VITAMIN C) 1,000 mg tablet Take 1,000 mg by mouth once daily. diroximel fumarate (VUMERITY) 231 mg capsule, delayed release Take 462 mg by mouth two times a day. hydroCHLOROthiazide 25 mg tablet Take 25 mg by mouth once daily. rosuvastatin (CRESTOR) 5 mg tablet Take 5 mg by mouth once daily. metoprolol succinate ER (TOPROL XL) 50 mg 24 hr tablet Take 50 mg by mouth two times a day. insulin glargine (LANTUS SOLOSTAR U-100 INSULIN) 100 unit/mL (3 mL) Inject subcutaneously. diclofenac potassium (CATAFLAM) 50 mg tablet Take 50 mg by mouth three times a day. gabapentin (NEURONTIN) 300 mg capsule Take 300 mg by mouth three times a day as needed (nerve pain). losartan (COZAAR) 50 mg tablet Take 50 mg by mouth two times a day. acetaminophen (TYLENOL) 500 mg tablet Take 1 tablet by mouth every 6 hours as needed. REVIEW OF SYSTEMS: Review of Systems Constitutional: Positive for malaise/fatigue. Negative for chills, diaphoresis, fever and weight loss. Respiratory: Positive for shortness of breath. Negative for cough, hemoptysis, sputum production and wheezing. Cardiovascular: Positive for palpitations. Negative for chest pain, orthopnea, claudication, leg swelling and PND. Gastrointestinal: Negative for abdominal pain, blood in stool, melena, nausea and vomiting. Genitourinary: Negative for dysuria and hematuria. Musculoskeletal: Negative for falls. Skin: Negative for rash. Neurological: Positive for dizziness. Negative for focal weakness, seizures and loss of consciousness. PHYSICAL EXAMINATION: BP 142/85 Pulse 75 Ht 5' 1" (1.55m) Wt 246 lb (111.6kg) SpO2 96% LMP 08/08/2006 BMI 46.51 kg/(m^2). Physical Exam Vitals reviewed. Constitutional: General: She is not in acute distress. Appearance: Normal appearance. HENT: Head: Normocephalic and atraumatic. Cardiovascular: Rate and Rhythm: Normal rate and regular rhythm. Heart sounds: Normal heart sounds, S1 normal and S2 normal. No murmur heard. No friction rub. Comments: pacemaker site left upper chest without erythema, warmth, tenderness, swelling, drainage or skin erosion Pulmonary: Effort: Pulmonary effort is normal. No respiratory distress. Breath sounds: Normal breath sounds. No wheezing, rhonchi or rales. Musculoskeletal: Cervical back: Neck supple. Right lower leg: No edema. Left lower leg: No edema. Skin: General: Skin is warm and dry. Neurological: General: No focal deficit present. Mental Status: She is alert and oriented to person, place, and time. Psychiatric: Mood and Affect: Mood normal. Behavior: Behavior normal. Thought Content: Thought content normal. CARDIOVASCULAR MEDICINE TESTING: Electrocardiogram: Sinus rhythm 72 bpm; first-degree AV block (IL 300 ms); right bundle branch block and left anterior fascicular block AKA bifascicular block (QRS 150 ms); QTc 490 ms Device Check: [facility] (see scanned documents) I have personally reviewed the Electrocardiogram and Device Check. 1. Bradycardia - ICD9: 427.89, ICD10: R00.1 (primary diagnosis) 2. Atrioventricular block, second degree - ICD9: 426.13, ICD10: I44.1 3. Mobitz type 2 second degree AV block - ICD9: 426.12, ICD10: I44.1 4. Right bundle branch block (RBBB) with left anterior fascicular block (LAFB) - ICD9: 426.52, ICD10: I45.2 5. Presence of cardiac pacemaker - ICD9: V45.01, ICD10: Z95.0 6. Malfunction of electrode lead of cardiac pacemaker - ICD9: 996.01, ICD10: T82.198A 7. Palpitations - ICD9: 785.1, ICD10: R00.2 8. Obesity, Class III, BMI >= 40 - ICD9: 278.01, ICD10: E66.01 IMPRESSION: Ms. Landry has atrial lead malfunction, probably conductor fracture in light of the electrical noise on the atrial channel and elevated pacing impedances. She was evaluated at [facility] for this issue,at that time it was recommended to not undergo lead replacement. However, she has an ongoing and recurrent need for MRI for her multiple sclerosis, she tells me, and she cannot have MRI with a lead fracture. At this point I think it is very reasonable to revise the pacing system. This would involveextraction and replacement of the atrial lead at minimum. There might be rationale to replace the existing RV lead with a septal lead near the conduction system to have more physiological ventricular activation. I would like to see an updated echocardiogram, the last one that I can find is from 2020. It would be particularly important to place a septal RV lead for conduction system pacing if she has any evidence for reduced LV systolic function. I had a detailed discussion with Ms. Landry regarding my evaluation and recommendations. After our discussion, Ms. Landry expressed her understanding and I answered all her questions to her apparent satisfaction. She agrees to proceed as outlined. INFORMED CONSENT The risks, benefits and anticipated outcomes of the procedure, the risks and benefits of the alternatives to the procedure and the roles and tasks of the personnel to be involved were discussed with the patient. Consent for the procedure and agreement to proceed has been obtained. I verify that I personally obtained the consent. PLAN AND RECOMMENDATIONS: Schedule extraction and replacement procedure for pacing lead(s), probably for both leads. Likely will upgrade to conduction system pacing for the RV lead ([employer]). We will perform venogram at beginning of case to document if the left subclavian vein is patent. She needs updated echocardiogram which she can have completed at [facility] through her [facility] team. Tyler Baer MD 07/18/2023 Medical Decision Making: Problems: Moderate: New problem with uncertain prognosis Data: Unique source(s) for external note(s) reviewed: 3+ Unique test result(s) reviewed: 3+ Unique test(s) ordered: 1 Risk: Moderate: Moderate risk from testing/treatment and Decision on minor surgery w/ risk factors Medical Decision Making Level: 4 - Moderate documented in this encounterK[facility]03-13-[facility] History of Past illness Narrative* Problem Noted Date Diagnosed Date Resolved Date Candidiasis of vagina 07/17/2023 07/17/20232023 documented as of this encounter (statuses as of 07/26/2023) [facility] History of Past illness Narrative* Problem Noted Date Diagnosed Date Resolved Date Candidiasis of vagina 07/17/2023 07/17/20232023 documented as of this encounter (statuses as of 07/30/2023) [facility] History of Past illness Narrative* Problem Noted Date Diagnosed Date Resolved Date Candidiasis of vagina 07/17/2023 07/17/20232023 documented as of this encounter (statuses as of 07/30/2023) [facility] Note ORIGINAL HISTORY: Cauda Martinez a syndrome COMPARISON: MR 01 December 2019. TECHNIQUE: Axial non-contrast CT of the lumbar spine, with sagittal and coronal reconstruction. This exam was performed according to our departmental dose optimization program, and includes the following measures where applicable: automated exposure control, adjustment of the mAs and/or kVp according to patient size and/or exam, and an iterative reconstruction algorithm. FINDINGS: There are 5 lumbar type vertebral bodies counting from the last visible rib. There is mild grade 1 anterolisthesis at L4-L5. The individual vertebral bodies are intact. Disc spaces appear mostly maintained. The paraspinous tissues are unremarkable in appearance. Specific findings by level: L3-L4: There is mild facet and ligamentum flavum hypertrophy. L4-L5: There is a mild posterior disc bulge. There is facet and ligamentum flavum hypertrophy, likely with mild stenosis. L5-S1: There is mild facet hypertrophy. IMPRESSION: Mild lower lumbar degenerative changes; possible mild stenosis at L4-L5. Interpreted by: Sha Gaitan MD Preliminary Report By: Sha Gaitan MD Electronically signed By Sha Gaitan MD Dictated Date: 07/02/2023 3:59:38 PM Prelim Date: 07/02/2023 4:01:10 PM Sign Date: 07/02/2023 4:01:10 PM Ordering Provider: [facility]02-23-2024 Miscellaneous Notes* Telephone Encounter - Tianna Hannah RN - 06/28/2023 1:43 PM EST Spoke to patient. Per Dr Montanez: BB can you let her know - she is not pacer dependent. the leads are functional in a unipolar fashion. Would not recommend lead revision just to facilitate an MRI. Would proceed with an MRI with the PPM in an ODO setting. I can't control what the radiologist does locally. If she can schedule the MRI here [facility] we can tell our radiologists that they are clear to proceed. thanks bb Advised patient that she could have MRI done here, would need to likely go through Neurology to have orders placed. Tianna Hannah RN * Telephone Encounter - Lauren Pinedo - 06/28/2023 11:38 AM EST Patient returning your call. Lauren Pinedo * Telephone Encounter - Tianna Hannah RN - 06/28/2023 10:52 AM EST Called patient, no answer, left message. Tianna Hannah RN documented in this encounterK[facility]11-24-2023 Miscellaneous Notes* Telephone Encounter - Lauren Pinedo - 03/29/2023 9:31 AM EST Images from the original note were not included. Outside EP-2-pgs, 7-pgs Pacer Insert- 02/23 Lauren Pinedo documented in this encounterKet[facility]11-20-2023 Hospital Discharge instructions Patient Education 03/25/2023 12:23:20 PM Discharge Instructions, No sedKaushik (08/05/20) (CUSTOM) [facility] Discharge Instructions POST PROCEDURE INSTRUCTIONS ___xx__There are no general limitations to your activities. You may experience some weakness for the next 3-4 hours, in which case you should limit your activity until strength and sensation returns. xx Your pain may increase for the next 24-48 hours, until the injection begins to relieve your pain. xx Rest at home today. Do not drive any vehicle, operate any heavy machinery or use any sharp objects for the remainder ofthe day. Be cautious of stairways, since your coordination may be impaired and do not drink alcoholic beverages or make major decisions for 24 hours. xx May resume driving a car in ___6 hours. xx Resume regular activity in 24 hours.. xx Resume your regular diet. Progress diet slowly, starting with water. If no difficulty with swallowing, progress to clear liquids (tea, broth, stephany mack) and then on to solids. xx Resume aspirin products/blood thinners in 24 hours. Start Lovenox injections on date . xx Keep bandaid dry and remove in 24 hours. MEDICATIONS: BEFORE PROCEDURE Physician s Pre-procedure Instruction Sheet given to patient. Stop Coumadin/Pradaxa/Eliquis/Xarelto for 5 days before procedure - date . Have ProTime drawn on (Try to have drawn at [facility] to speed results to us). Stop blood thinners Plavix, Pletal for 10 days before procedure date . Stop Aspirin, Persantine, Aggrenox for 7 days before procedure date . Stop Lovenox 24 hours before your appointment time. Stop anti-inflammatory medications (Aleve, Advil, Mobic, Naprosyn, etc.) for 5 days before procedure. Stop ALL Supplements and Vitamins for 10 days before your procedure. Take blood pressure medications the day of your procedure. Do not eat hours before procedure. Do not drink hours before procedure. May have clear liquids (water, plain tea/coffee, clear soda) up to 2 hours before procedure. Bring someone to drive you home. [facility] 11-20-2023 Summary of episode note Discharge Instructions Thank you for allowing [facility] to assist you with your healthcare needs. The following is importantdischarge information regarding your hospital visit. 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 What How Much When Why Instructions Last Dose Unchanged acetaminophen (Tylenol) 325 Milligram by mouth As needed for as needed for pain Unchanged buPROPion (buPROPion 100 mg/ 12 hours (SR) oral tablet, extended release) TAKE 1 TABLET BY MOUTH EVERY DAY Unchanged diclofenac (diclofenac sodium 50 mg oral delayed release tablet) 1 tab(s) by mouth Three (3) times a day Unchanged diroximel fumarate (Vumerity 231 mg oral delayed release capsule) 1 cap by mouth Two (2) times a day Unchanged gabapentin (gabapentin 300 mg oral capsule) 1 cap by mouth Two (2) times a day Lumbar radiculopathy Duration: 90 Days Unchanged glimepiride (glimepiride 2 mg oral tablet) 1 tab(s) by mouth Once a day Unchanged hydroCHLOROthiazide (hydroCHLOROthiazide 25 mg oral tablet) TAKE 1 TABLET BY MOUTH ONCE DAILY Unchanged insulin glargine (Lantus) 30 unit(s) Subcutaneous Once a day Unchanged levothyroxine 150 Microgram Once a day Unchanged losartan (losartan 50 mg oral tablet) TAKE 1 TABLET BY MOUTH TWICE A DAY Unchanged metFORMIN (metFORMIN 1000 mg oral tablet (IR)) TAKE 1 TABLET BY MOUTH TWICE A DAY WITH MEALS Unchanged metoprolol (Metoprolol Succinate ER 50 mg oral TABLET extended release) 2 tab(s) by mouth Once a day Unchanged modafinil (modafinil 200 mg oral tablet) 1 tab(s) by mouth Once a day (in the morning) Unchanged rosuvastatin (rosuvastatin 5 mg oral tablet) 1 tab(s) by mouth Once a day Unchanged tiZANidine (tiZANidine 4 mg oral tablet) 1 tab(s) by mouth Daily at bedtime Duration: 90 Days Please take this list to your next doctor s visit. Bring all medications you take, including over the counter medications, herbals and other supplements with you to your doctor s visit. Patients and families are reminded to discard old lists and to update any records with all medication providers or retail pharmacies. Education Materials [facility] Management Discharge Instructions POST PROCEDURE INSTRUCTIONS ___xx__There are no general limitations to your activities. You may experience some weakness for the next 3-4 hours, in which case you should limit your activity until strength and sensation returns. xx Your pain may increase for the next 24-48 hours, until the injection begins to relieve your pain. xx Rest at home today. Do not drive any vehicle, operate any heavy machinery or use any sharp objects for the remainder ofthe day. Be cautious of stairways, since your coordination may be impaired and do not drink alcoholic beverages or make major decisions for 24 hours. xx May resume driving a car in ___6 hours. xx Resume regular activity in 24 hours.. xx Resume your regular diet. Progress diet slowly, starting with water. If no difficulty with swallowing, progress to clear liquids (tea, broth, stephany mack) and then on to solids. xx Resume aspirin products/blood thinners in 24 hours. Start Lovenox injections on date . xx Keep bandaid dry and remove in 24 hours. MEDICATIONS: BEFORE PROCEDURE Physician s Pre-procedure Instruction Sheet given to patient. Stop Coumadin/Pradaxa/Eliquis/Xarelto for 5 days before procedure - date . Have ProTime drawn on (Try to have drawn at [facility] to speed results to us). Stop blood thinners Plavix, Pletal for 10 days before procedure date . Stop Aspirin, Persantine, Aggrenox for 7 days before procedure date . Stop Lovenox 24 hours before your appointment time. Stop anti-inflammatory medications (Aleve, Advil, Mobic, Naprosyn, etc.) for 5 days before procedure. Stop ALL Supplements and Vitamins for 10 days before your procedure. Take blood pressure medications the day of your procedure. Do not eat hours before procedure. Do not drink hours before procedure. May have clear liquids (water, plain tea/coffee, clear soda) up to 2 hours before procedure. Bring someone to drive you home. Signatures Patient Education Materials PM Discharge Instructions, No Kaushik armstrong (08/05/20) (CUSTOM) Medication Leaflets My discharge plan and instructions have been reviewed and explained to me and IGRIS CYNTHIA A understand my current condition and have read and understand these discharge instructions. I have received a written copy of the plan/instructions. If I have questions, I am aware that I should contactmy doctor. Patient/Art Director Signature: Date/Time: Relationship to Patient: Witness Name/Signature: Date/Time: [facility] [id number] Miscellaneous Notes* Telephone Encounter - RichmondLauren Haskins - 03/13/2023 3:19 PM EST Outside [id number]- Images uploaded to [facility] PACS Referral- 03/28 (Dr. Michael Liu) Office Visit- 02/25 Device Implant- 02/23 Echo- 07/22 Stress Test- 07/22 Cardiac Cath- 07/22 Coronary Angiography- 07/22 Device Check's- 03/28 & 02/23 [facility] Discharge instructions Patient Education 02/05/2023 09:01:19 PM Discharge Instructions, No sedKaushik (08/05/20) (CUSTOM) [facility] Discharge Instructions POST PROCEDURE INSTRUCTIONS ___xx__There are no general limitations to your activities. You may experience some weakness for the next 3-4 hours, in which case you should limit your activity until strength and sensation returns. xx Your pain may increase for the next 24-48 hours, until the injection begins to relieve your pain. xx Rest at home today. Do not drive any vehicle, operate any heavy machinery or use any sharp objects for the remainder ofthe day. Be cautious of stairways, since your coordination may be impaired and do not drink alcoholic beverages or make major decisions for 24 hours. xx May resume driving a car in ___6 hours. xx Resume regular activity in 24 hours.. xx Resume your regular diet. Progress diet slowly, starting with water. If no difficulty with swallowing, progress to clear liquids (tea, broth, stephany mack) and then on to solids. xx Resume aspirin products/blood thinners in 24 hours. Start Lovenox injections on date . xx Keep bandaid dry and remove in 24 hours. MEDICATIONS: BEFORE PROCEDURE Physician s Pre-procedure Instruction Sheet given to patient. Stop Coumadin/Pradaxa/Eliquis/Xarelto for 5 days before procedure - date . Have ProTime drawn on (Try to have drawn at [facility] to speed results to us). Stop blood thinners Plavix, Pletal for 10 days before procedure date . Stop Aspirin, Persantine, Aggrenox for 7 days before procedure date . Stop Lovenox 24 hours before your appointment time. Stop anti-inflammatory medications (Aleve, Advil, Mobic, Naprosyn, etc.) for 5 days before procedure. Stop ALL Supplements and Vitamins for 10 days before your procedure. Take blood pressure medications the day of your procedure. Do not eat hours before procedure. Do not drink hours before procedure. May have clear liquids (water, plain tea/coffee, clear soda) up to 2 hours before procedure. Bring someone to drive you home. [facility] 10-03-2023 Summary of episode note Discharge Instructions Thank you for allowing [facility] to assist you with your healthcare needs. The following is importantdischarge information regarding your hospital visit. 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 What How Much When Why Instructions Last Dose Unchanged acetaminophen (Tylenol) 325 Milligram by mouth As needed for as needed for pain Unchanged buPROPion (buPROPion 100 mg/ 12 hours (SR) oral tablet, extended release) TAKE 1 TABLET BY MOUTH EVERY DAY Unchanged diclofenac (diclofenac sodium 50 mg oral delayed release tablet) 1 tab(s) by mouth Three (3) times a day Unchanged diroximel fumarate (Vumerity 231 mg oral delayed release capsule) 1 cap by mouth Two (2) times a day Unchanged gabapentin (gabapentin 300 mg oral capsule) 1 cap by mouth Two (2) times a day Lumbar radiculopathy Duration: 90 Days Unchanged glimepiride (glimepiride 2 mg oral tablet) 1 tab(s) by mouth Once a day Unchanged hydroCHLOROthiazide (hydroCHLOROthiazide 25 mg oral tablet) TAKE 1 TABLET BY MOUTH ONCE DAILY Unchanged insulin glargine (Lantus) 30 unit(s) Subcutaneous Once a day Unchanged levothyroxine 150 Microgram Once a day Unchanged losartan (losartan 50 mg oral tablet) TAKE 1 TABLET BY MOUTH TWICE A DAY Unchanged metFORMIN (metFORMIN 1000 mg oral tablet (IR)) TAKE 1 TABLET BY MOUTH TWICE A DAY WITH MEALS Unchanged metoprolol (Metoprolol Succinate ER 50 mg oral TABLET extended release) 2 tab(s) by mouth Once a day Unchanged modafinil (modafinil 200 mg oral tablet) 1 tab(s) by mouth Once a day (in the morning) Unchanged rosuvastatin (rosuvastatin 5 mg oral tablet) 1 tab(s) by mouth Once a day Unchanged tiZANidine (tiZANidine 4 mg oral tablet) 1 tab(s) by mouth Daily at bedtime Duration: 90 Days Please take this list to your next doctor s visit. Bring all medications you take, including over the counter medications, herbals and other supplements with you to your doctor s visit. Patients and families are reminded to discard old lists and to update any records with all medication providers or retail pharmacies. Education Materials [facility] Pain Management Discharge Instructions POST PROCEDURE INSTRUCTIONS ___xx__There are no general limitations to your activities. You may experience some weakness for the next 3-4 hours, in which case you should limit your activity until strength and sensation returns. xx Your pain may increase for the next 24-48 hours, until the injection begins to relieve your pain. xx Rest at home today. Do not drive any vehicle, operate any heavy machinery or use any sharp objects for the remainder ofthe day. Be cautious of stairways, since your coordination may be impaired and do not drink alcoholic beverages or make major decisions for 24 hours. xx May resume driving a car in ___6 hours. xx Resume regular activity in 24 hours.. xx Resume your regular diet. Progress diet slowly, starting with water. If no difficulty with swallowing, progress to clear liquids (tea, broth, stephany mack) and then on to solids. xx Resume aspirin products/blood thinners in 24 hours. Start Lovenox injections on date . xx Keep bandaid dry and remove in 24 hours. MEDICATIONS: BEFORE PROCEDURE Physician s Pre-procedure Instruction Sheet given to patient. Stop Coumadin/Pradaxa/Eliquis/Xarelto for 5 days before procedure - date . Have ProTime drawn on (Try to have drawn at [facility] to speed results to us). Stop blood thinners Plavix, Pletal for 10 days before procedure date . Stop Aspirin, Persantine, Aggrenox for 7 days before procedure date . Stop Lovenox 24 hours before your appointment time. Stop anti-inflammatory medications (Aleve, Advil, Mobic, Naprosyn, etc.) for 5 days before procedure. Stop ALL Supplements and Vitamins for 10 days before your procedure. Take blood pressure medications the day of your procedure. Do not eat hours before procedure. Do not drink hours before procedure. May have clear liquids (water, plain tea/coffee, clear soda) up to 2 hours before procedure. Bring someone to drive you home. Additional Information VACCINATE! IT SAVES LIVES! Members of the community who have not yet received the COVID-19 vaccine and would like to receive it can visit one of [facility] vaccine clinics. There are many vaccine clinic locations within the [facility]. For locations and available times, please visit [email or web address] It is important to note that some COVID mobile vaccine clinics are held outdoors and may be canceled in rainy or stormy conditions. To learn more about pediatric vaccinations (ages 5-11), we invite you to visit the [facility] webpage. [email or web address] learn more about the COVID-19 vaccine, we invite you to visit the CDC website for a list of frequently asked questions.https://www.cdc.gov/coronavirus/2019-ncov/vaccines/faq.html [facility] Patient Portal Access Instructions: Stay connected with your healthcare team and access your personal medical information anytime with the [facility] Patient Portal. Please follow the directions below to create your [facility] account: 1.Access the email account you provided upon registration to the hospital/physician office.2.Look for an invitation email from [facility].3.Open the email and access the invitation link: AcceptInvitation to [facility].4.Fill in the required horowitz to create your account. To access your account, visit [employer]. Click the blue button labeled "Access Patient Portal" and then log in with the username and password that you created in the steps above. You will be able to view your test results, lab results, a summary of your visits, upcoming appointments and more. There is also a convenient messaging option where you can send secure messages to your p [employer]. In addition, you will have the ability to download any documents or summaries to your computer and/or send the information securely to a physician. Remember that your healthcare information is confidential, so carefully consider who you will allowto register on the [facility] Patient Portal for access to your information. You can also access the [facility] Patient Portal on the [employer] rebeka. Simply click on "Patient Portal" and then log into your account. If you would like to receive a full copy of your medical records, please contact the [facility] Medical Records Department by calling [phone], Saturday through Saturday between 8 a.m. and 4:30 p.m. HOW TO SAFELY DISPOSE OF PRESCRIPTION MEDICATIONS Please use one of the following methods to safely dispose of your unused medications. 1.Use a drug disposal kit: the drug disposal pouch allows you to safely discard your old and unuseddrugs. Ask your nurse to give you one when you are discharged.2.Visit a local take-back location: Many local pharmacies and police departments have programs that collect old and unwanted prescriptiondrugs. Call your local pharmacy or go to [email or web address] to find one close to you.3.Make use of household items: Use cat litter or old coffee grounds to dispose medications if other options arenot available. Mix your drugs with these household products, seal them in an airtight container andthrow it into the garbage. Call [facility]: [phone] to be sure your drugs can be disposed of in this way. Some medicines may require a different approach.4.Never flush your medications down the toilet. IF YOU HAVE BEEN PRESCRIBED AN OPIOID FOR PAIN If you have been prescribed an opioid (such as hydrocodone, oxycodone or morphine), it is critical to understand the possible side effects and risks of opioid pain medications. Even when taken as directed, opioids can have several side effects including: Tolerance, meaning you might need to take more of a medication for the same pain relief. Nausea, vomiting and/or constipation. Sleepiness, dizziness, dry mouth, confusion, depression or itching. Physical dependence, meaning you have withdrawal symptoms when a medication is stopped, can develop within a few days. KNOW YOUR RESPONSIBILITIES It is important to know exactly how much and how often to take the opioid pain medications you are prescribed. Never take opioids in higher amounts or more often than prescribed. Do not combine opioids with alcohol or other drugs that cause drowsiness, such as benzodiazepines, also known as benzos, including diazepam and alprazolam, muscle relaxants or sleep aids. Never sell or share prescription opioids. This is illegal. Store opioids in a secure place and out of reach of others (including children, family, friends and visitors). The last page of this document has been signed and retained as a CHART COPY. Signatures Patient Education Materials PM Discharge Instructions, No Kaushik armstrong (08/05/20) (CUSTOM) Medication Leaflets My discharge plan and instructions have been reviewed and explained to me and IGRIS CYNTHIA A understand my current condition and have read and understand these discharge instructions. I have received a written copy of the plan/instructions. If I have questions, I am aware that I should contactmy doctor. Patient/Art Director Signature: Date/Time: Relationship to Patient: Witness Name/Signature: Date/Time: [facility] [id number] Hospital Discharge instructions Patient Education 11/09/2022 13:15:28 PM Drawer Liner pre- Instructions,Kaushik (08/05/20) ([id number]) [facility] Management Discharge Instructions POST PROCEDURE INSTRUCTIONS There are no general limitations to your activities. You may experience some weakness for the next 3-4 hours, in which case you should limit your activity until strength and sensation returns. Your pain may increase for the next 24-48 hours, until the injection begins to relieve your pain. Rest at home today. Do not drive any vehicle, operate any heavy machinery or use any sharp objects for the remainder ofthe day. Be cautious of stairways, since your coordination may be impaired and do not drink alcoholic beverages or make major decisions for 24 hours. May resume driving a car in hours. Resume regular activity in 24 hours.. Resume your regular diet. Progress diet slowly, starting with water. If no difficulty with swallowing, progress to clear liquids (tea, broth, stephany mack) and then on to solids. Resume aspirin products/blood thinners in hours. Start Lovenox injections on date . Keep bandaid dry and remove in 24 hours. MEDICATIONS: BEFORE PROCEDURE xx Physician s Pre-procedure Instruction Sheet given to patient. Stop Coumadin/Pradaxa/Eliquis/Xarelto for 5 days before procedure - date . Have ProTime drawn on (Try to have drawn at [facility] to speed results to us). Stop blood thinners Plavix, Pletal for 10 days before procedure date . Stop Aspirin, Persantine, Aggrenox for 7 days before procedure date . Stop Lovenox 24 hours before your appointment time. Stop anti-inflammatory medications (Aleve, Advil, Mobic, Naprosyn, etc.) for 5 days before procedure. xx Stop ALL Supplements and Vitamins for 10 days before your procedure. xx Take blood pressure medications the day of your procedure. xx Do not eat ___8 hours before procedure. xx Do not drink _2 hours before procedure. xx May have clear liquids (water, plain tea/coffee, clear soda) up to 2 hours before procedure. xx Bring someone to drive you home. 11/09/2022 13:15:[address] Faulkner Pre-Procedure Instructions () (CUSTOM) [facility] Pre-Procedure Instructions and Important Information Dr. Faulkner As a patient, it is important for you to understand and follow all instructions listed below beforeyou come for you procedure appointment. If there is anything listed below that you are not sure of,or do not understand, please ask or call us at the [facility] at [phone] before your procedure appointment. 1.Approval to stop your prescribed blood thinner will be obtained from your primary care doctor or certified industrial hygienist. Once approval has been obtained, you will need to stop all blood thinners as instructed, before your procedure date. Depending on the blood thinner you are taking, you will be told exactly how many days before you will need to discontinue taking the medication. a.For Warfarin (Coumadin), the physician will give you an order to have a blood test to check your Protime/INR the day before the procedure. 2.Stop all aspirin and aspirin products for a full seven (7) days before your procedure. 3.Stop all non-steroidal anti-inflammatory (NSAIDS) medication for a full five (5) days before yourprocedure. b.NSAIDS: Ibuprofen (Motrin, Advil), Naproxen (Aleve, Naprosyn), Meloxicam (Mobic), Diclofenac (Voltaren), Indomethacin (Indocin), Relafen, or other medications as instructed. 4.Stop all over the counter cold, sinus, flu, or headache medications for a full five (5) days before the procedure. These medications can contain aspirin or NSAIDS. 5.Stop all natural, herbal or vitamin supplements (Vit. E, Fish Oil, etc.) for a full ten (10) daysbefore the procedure. 6.Do not EAT anything eight (8) hours before your procedure. You may have CLEAR LIQUIDS up to two (2) hours before your procedure. Please understand, there are no exceptions to the above medication instructions. Failure to follow will result in your procedure being cancelled Please call with any changes in your medical condition/history before your procedure appointment, this includes the following: a.Any type of surgery, other injections given by another physician b.Recent infections, such as: Colds, flu, sinus infection, urinary tract infection, pneumonia, or any skin wound or infection of any kind. c.Change in medications. If you have any of the listed changes in your medical history, OR if you have failed to follow the above instructions for medication, your procedure will need to be cancelled and rescheduled for another date. The above instructions are FOR YOUR SAFETY. Failure to follow the above instructions and, or failure to inform your physician of any health issues may result in serious complications that include, but are not limited to, bleeding, serious infection, paralysis, or . [facility] 07-07-2023 Summary of episode note Discharge Instructions Thank you for allowing [facility] to assist you with your healthcare needs. The following is importantdischarge information regarding your hospital visit. 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 What How Much When Why Instructions Last Dose Unchanged acetaminophen (Tylenol) 325 Milligram by mouth As needed for as needed for pain Unchanged buPROPion (buPROPion 100 mg/ 12 hours (SR) oral tablet, extended release) TAKE 1 TABLET BY MOUTH EVERY DAY Unchanged diclofenac (diclofenac sodium 50 mg oral delayed release tablet) 1 tab(s) by mouth Three (3) times a day Unchanged diroximel fumarate (Vumerity 231 mg oral delayed release capsule) 1 cap by mouth Two (2) times a day Unchanged gabapentin (gabapentin 300 mg oral capsule) 1 cap by mouth Two (2) times a day Lumbar radiculopathy Duration: 90 Days Unchanged insulin degludec (Tresiba FlexTouch 200 units/ mL 3 mL subcutaneous solution) Subcutaneous Once a day 28 UNITS UNDER SKIN DAILY Unchanged levothyroxine 150 Microgram Once a day Unchanged losartan (losartan 50 mg oral tablet) TAKE 1 TABLET BY MOUTH TWICE A DAY Unchanged metFORMIN (metFORMIN 1000 mg oral tablet (IR)) TAKE 1 TABLET BY MOUTH TWICE A DAY WITH MEALS Unchanged metoprolol (Metoprolol Succinate ER 50 mg oral TABLET extended release) 1 tab(s) by mouth Once a day Unchanged rosuvastatin (rosuvastatin 5 mg oral tablet) 1 tab(s) by mouth Once a day Unchanged tiZANidine (tiZANidine 4 mg oral tablet) 1 tab(s) by mouth Daily at bedtime Duration: 90 Days Please take this list to your next doctor s visit. Bring all medications you take, including over the counter medications, herbals and other supplements with you to your doctor s visit. Patients and families are reminded to discard old lists and to update any records with all medication providers or retail pharmacies. Education Materials [facility] Discharge Instructions POST PROCEDURE INSTRUCTIONS There are no general limitations to your activities. You may experience some weakness for the next 3-4 hours, in which case you should limit your activity until strength and sensation returns. Your pain may increase for the next 24-48 hours, until the injection begins to relieve your pain. Rest at home today. Do not drive any vehicle, operate any heavy machinery or use any sharp objects for the remainder ofthe day. Be cautious of stairways, since your coordination may be impaired and do not drink alcoholic beverages or make major decisions for 24 hours. May resume driving a car in hours. Resume regular activity in 24 hours.. Resume your regular diet. Progress diet slowly, starting with water. If no difficulty with swallowing, progress to clear liquids (tea, broth, stephany mack) and then on to solids. Resume aspirin products/blood thinners in hours. Start Lovenox injections on date . Keep bandaid dry and remove in 24 hours. MEDICATIONS: BEFORE PROCEDURE xx Physician s Pre-procedure Instruction Sheet given to patient. Stop Coumadin/Pradaxa/Eliquis/Xarelto for 5 days before procedure - date . Have ProTime drawn on (Try to have drawn at [facility] to speed results to us). Stop blood thinners Plavix, Pletal for 10 days before procedure date . Stop Aspirin, Persantine, Aggrenox for 7 days before procedure date . Stop Lovenox 24 hours before your appointment time. Stop anti-inflammatory medications (Aleve, Advil, Mobic, Naprosyn, etc.) for 5 days before procedure. xx Stop ALL Supplements and Vitamins for 10 days before your procedure. xx Take blood pressure medications the day of your procedure. xx Do not eat ___8 hours before procedure. xx Do not drink _2 hours before procedure. xx May have clear liquids (water, plain tea/coffee, clear soda) up to 2 hours before procedure. xx Bring someone to drive you home. [facility] Pre-Procedure Instructions and Important Information Dr. Faulkner As a patient, it is important for you to understand and follow all instructions listed below beforeyou come for you procedure appointment. If there is anything listed below that you are not sure of,or do not understand, please ask or call us at the [facility] at [phone] before your procedure appointment. 1. Approval to stop your prescribed blood thinner will be obtained from your primary care doctor or certified industrial hygienist. Once approval has been obtained, you will need to stop all blood thinners as instructed,before your procedure date. Depending on the blood thinner you are taking, you will be told exactlyhow many days before you will need to discontinue taking the medication. a. For Warfarin (Coumadin), the physician will give you an order to have a blood test to check your Protime/INR the day before the procedure. 2. Stop all aspirin and aspirin products for a full seven (7) days before your procedure. 3. Stop all non-steroidal anti-inflammatory (NSAIDS) medication for a full five (5) days before your procedure. b. NSAIDS: Ibuprofen (Motrin, Advil), Naproxen (Aleve, Naprosyn), Meloxicam (Mobic), Diclofenac (Voltaren), Indomethacin (Indocin), Relafen, or other medications as instructed. 4. Stop all over the counter cold, sinus, flu, or headache medications for a full five (5) days beforethe procedure. These medications can contain aspirin or NSAIDS. 5. Stop all natural, herbal or vitamin supplements (Vit. E, Fish Oil, etc.) for a full ten (10) days before the procedure. 6. Do not EAT anything eight (8) hours before your procedure. You may have CLEAR LIQUIDS up to two (2)hours before your procedure. Please understand, there are no exceptions to the above medication instructions. Failure to follow will result in your procedure being cancelled Please call with any changes in your medical condition/history before your procedure appointment, this includes the following: a. Any type of surgery, other injections given by another physician b. Recent infections, such as: Colds, flu, sinus infection, urinary tract infection, pneumonia, or anyskin wound or infection of any kind. c. Change in medications. If you have any of the listed changes in your medical history, OR if you have failed to follow the above instructions for medication, your procedure will need to be cancelled and rescheduled for another date. The above instructions are FOR YOUR SAFETY. Failure to follow the above instructions and, or failure to inform your physician of any health issues may result in serious complications that include, but are not limited to, bleeding, serious infection, paralysis, or . Additional Information VACCINATE! IT SAVES LIVES! Members of the community who have not yet received the COVID-19 vaccine and would like to receive it can visit one of [facility] vaccine clinics. There are many vaccine clinic locations within the [facility]. For locations and available times, please visit [email or web address] It is important to note that some COVID mobile vaccine clinics are held outdoors and may be canceled in rainy or stormy conditions. To learn more about pediatric vaccinations (ages 5-11), we invite you to visit the [facility] webpage. [email or web address] learn more about the COVID-19 vaccine, we invite you to visit the CDC website for a list of frequently asked questions.https://www.cdc.gov/coronavirus/2019-ncov/vaccines/faq.html [facility] Patient Portal Access Instructions: Stay connected with your healthcare team and access your personal medical information anytime with the [facility] Patient Portal. Please follow the directions below to create your [employer] account: 1.Access the email account you provided upon registration to the hospital/physician office.2.Look for an invitation email from [facility].3.Open the email and access the invitation link: AcceptInvitation to [employer].4.Fill in the required horowitz to create your account. To access your account, visit [employer]. Click the blue button labeled "Access Patient Portal" and then log in with the username and password that you created in the steps above. You will be able to view your test results, lab results, a summary of your visits, upcoming appointments and more. There is also a convenient messaging option where you can send secure messages to your p rovider. In addition, you will have the ability to download any documents or summaries to your computer and/or send the information securely to a physician. Remember that your healthcare information is confidential, so carefully consider who you will allowto register on the [employer] Patient Portal for access to your information. You can also access the [facility] Patient Portal on the [employer] rebeka. Simply click on "Patient Portal" and then log into your account. If you would like to receive a full copy of your medical records, please contact the [facility] Medical Records Department by calling [phone], Saturday through Saturday between 8 a.m. and 4:30 p.m. HOW TO SAFELY DISPOSE OF PRESCRIPTION MEDICATIONS Please use one of the following methods to safely dispose of your unused medications. 1.Use a drug disposal kit: the drug disposal pouch allows you to safely discard your old and unuseddrugs. Ask your nurse to give you one when you are discharged.2.Visit a local take-back location: Many local pharmacies and police departments have programs that collect old and unwanted prescriptiondrugs. Call your local pharmacy or go to [email or web address] to find one close to you.3.Make use of household items: Use cat litter or old coffee grounds to dispose medications if other options arenot available. Mix your drugs with these household products, seal them in an airtight container andthrow it into the garbage. Call [facility]: [phone] to be sure your drugs can be disposed of in this way. Some medicines may require a different approach.4.Never flush your medications down the toilet. IF YOU HAVE BEEN PRESCRIBED AN OPIOID FOR PAIN If you have been prescribed an opioid (such as hydrocodone, oxycodone or morphine), it is critical to understand the possible side effects and risks of opioid pain medications. Even when taken as directed, opioids can have several side effects including: Tolerance, meaning you might need to take more of a medication for the same pain relief. Nausea, vomiting and/or constipation. Sleepiness, dizziness, dry mouth, confusion, depression or itching. Physical dependence, meaning you have withdrawal symptoms when a medication is stopped, can develop within a few days. KNOW YOUR RESPONSIBILITIES It is important to know exactly how much and how often to take the opioid pain medications you are prescribed. Never take opioids in higher amounts or more often than prescribed. Do not combine opioids with alcohol or other drugs that cause drowsiness, such as benzodiazepines, also known as benzos, including diazepam and alprazolam, muscle relaxants or sleep aids. Never sell or share prescription opioids. This is illegal. Store opioids in a secure place and out of reach of others (including children, family, friends and visitors). The last page of this document has been signed and retained as a CHART COPY. Signatures Patient Education Materials PM Drawer Liner pre- Instructions,Kaushik (08/05/20) ([id number]) PM Dr. Faulkner Pre-Procedure Instructions () (CUSTOM) Medication Leaflets My discharge plan and instructions have been reviewed and explained to me and I,KVNG LANDRY understand my current condition and have read and understand these discharge instructions. I have received a written copy of the plan/instructions. If I have questions, I am aware that I should contactmy doctor. Patient/Art Director Signature: Date/Time: Relationship to Patient: Witness Name/Signature: Date/Time: [facility] [id number] Hospital Discharge instructions Patient Education 07/13/2022 08:33:20 PM Discharge Instructions, all,Kaushik (08/05/20) ([id number]) [facility] Discharge Instructions POST PROCEDURE INSTRUCTIONS ___xx__There are no general limitations to your activities. You may experience some weakness for the next 3-4 hours, in which case you should limit your activity until strength and sensation returns. xx Your pain may increase for the next 24-48 hours, until the injection begins to relieve your pain. xx Rest at home today. xx Do not drive any vehicle, operate any heavy machinery or use any sharp objects for the remainderof the day. xx Be cautious of stairways, since your coordination may be impaired and do not drink alcoholic beverages or make major decisions for 24 hours. xx May resume driving a car in ___6 hours if no sedation was used, in 24 hours if sedation wasused. xx Resume regular activity in 24 hours.. xx Resume your regular diet. Progress diet slowly, starting with water. If no difficulty with swallowing, progress to clear liquids (tea, broth, stephayn mack) and then on to solids. xx Resume aspirin products/blood thinners in 24 hours. Start Lovenox injections on date . xx Keep bandaid dry and remove in 24 hours. MEDICATIONS: BEFORE PROCEDURE xx Physician s Pre-procedure Instruction Sheet given to patient. Stop Coumadin/Pradaxa/Eliquis/Xarelto for 5 days before procedure - date . Have ProTime drawn on (Try to have drawn at [facility] to speed results to us). Stop blood thinners Plavix, Pletal for 10 days before procedure date . Stop Aspirin, Persantine, Aggrenox for 7 days before procedure date . Stop Lovenox 24 hours before your appointment time. xx Stop anti-inflammatory medications (Aleve, Advil, Mobic, Naprosyn, etc.) for 5 days before procedure. xx Stop ALL Supplements and Vitamins for 10 days before your procedure. xx Take blood pressure medications the day of your procedure. xx Do not eat ____8 hours before procedure. xx Do not drink 2___ hours before procedure. xx May have clear liquids (water, plain tea/coffee, clear soda) up to 2 hours before procedure. xx Bring someone to drive you home. [facility] 03-10-2023 Summary of episode note Discharge Instructions Thank you for allowing [facility] to assist you with your healthcare needs. The following is importantdischarge information regarding your hospital visit. Your Care Team ELMER RICHARDS MD, DR. 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 What How Much When Why Instructions Last Dose Unchanged acetaminophen (Tylenol) 325 Milligram by mouth As needed for as needed for pain Unchanged diclofenac (diclofenac sodium 50 mg oral delayed release tablet) 1 tab(s) by mouth Three (3) times a day Unchanged diroximel fumarate (Vumerity 231 mg oral delayed release capsule) 1 cap by mouth Two (2) times a day Unchanged empagliflozin (Jardiance 25 mg oral tablet) 1 tab(s) by mouth Once a day (in the morning) Unchanged gabapentin (gabapentin 300 mg oral capsule) 1 cap by mouth Two (2) times a day Lumbar radiculopathy Duration: 30 Days Unchanged hydroCHLOROthiazide (hydroCHLOROthiazide 25 mg oral tablet) 1 tab(s) by mouth Once a day Unchanged insulin degludec (Tresiba FlexTouch 200 units/ mL 3 mL subcutaneous solution) Subcutaneous Once a day 28 UNITS UNDER SKIN DAILY Unchanged levothyroxine 150 Microgram Once a day Unchanged losartan (losartan 50 mg oral tablet) TAKE 1 TABLET BY MOUTH TWICE A DAY Unchanged metFORMIN (metFORMIN 1000 mg oral tablet (IR)) TAKE 1 TABLET BY MOUTH TWICE A DAY WITH MEALS Unchanged metoprolol (Metoprolol Succinate ER 50 mg oral TABLET extended release) 1 tab(s) by mouth Once a day Unchanged rosuvastatin (rosuvastatin 5 mg oral tablet) 1 tab(s) by mouth Once a day Unchanged tiZANidine (tiZANidine 4 mg oral tablet) 1 tab(s) by mouth Daily at bedtime Duration: 30 Days Please take this list to your next doctor s visit. Bring all medications you take, including over the counter medications, herbals and other supplements with you to your doctor s visit. Patients and families are reminded to discard old lists and to update any records with all medication providers or retail pharmacies. Education Materials [facility] Discharge Instructions POST PROCEDURE INSTRUCTIONS ___xx__There are no general limitations to your activities. You may experience some weakness for the next 3-4 hours, in which case you should limit your activity until strength and sensation returns. xx Your pain may increase for the next 24-48 hours, until the injection begins to relieve your pain. xx Rest at home today. xx Do not drive any vehicle, operate any heavy machinery or use any sharp objects for the remainderof the day. xx Be cautious of stairways, since your coordination may be impaired and do not drink alcoholic beverages or make major decisions for 24 hours. xx May resume driving a car in ___6 hours if no sedation was used, in 24 hours if sedation wasused. xx Resume regular activity in 24 hours.. xx Resume your regular diet. Progress diet slowly, starting with water. If no difficulty with swallowing, progress to clear liquids (tea, broth, stephany mack) and then on to solids. xx Resume aspirin products/blood thinners in 24 hours. Start Lovenox injections on date . xx Keep bandaid dry and remove in 24 hours. MEDICATIONS: BEFORE PROCEDURE xx Physician s Pre-procedure Instruction Sheet given to patient. Stop Coumadin/Pradaxa/Eliquis/Xarelto for 5 days before procedure - date . Have ProTime drawn on (Try to have drawn at [facility] to speed results to us). Stop blood thinners Plavix, Pletal for 10 days before procedure date . Stop Aspirin, Persantine, Aggrenox for 7 days before procedure date . Stop Lovenox 24 hours before your appointment time. xx Stop anti-inflammatory medications (Aleve, Advil, Mobic, Naprosyn, etc.) for 5 days before procedure. xx Stop ALL Supplements and Vitamins for 10 days before your procedure. xx Take blood pressure medications the day of your procedure. xx Do not eat ____8 hours before procedure. xx Do not drink 2___ hours before procedure. xx May have clear liquids (water, plain tea/coffee, clear soda) up to 2 hours before procedure. xx Bring someone to drive you home. Signatures Patient Education Materials PM Discharge Instructions, Kaushik gil (08/05/20) ([id number]) Medication Leaflets My discharge plan and instructions have been reviewed and explained to me and I,KVNG LANDRY understand my current condition and have read and understand these discharge instructions. I have received a written copy of the plan/instructions. If I have questions, I am aware that I should contactmy doctor. Patient/Art Director Signature: Date/Time: Relationship to Patient: Witness Name/Signature: Date/Time: [facility] [id number] History and physical note History and Physical Update I have examined the patient; reviewed the History and Physical and there are no changes to the History and Physical unless noted below. July 03, 2022 office note Digitally Signed by CHRISTINA JENNINGS MD on 07/13/2022 08:[address] [facility] [id number] Hospital Discharge instructions Patient Education 03/09/2022 09:25:54 PM Discharge Instructions, Kaushik gil (08/05/20) ([id number]) [facility] Discharge Instructions POST PROCEDURE INSTRUCTIONS ___xx__There are no general limitations to your activities. You may experience some weakness for the next 3-4 hours, in which case you should limit your activity until strength and sensation returns. xx Your pain may increase for the next 24-48 hours, until the injection begins to relieve your pain. xx Rest at home today. xx Do not drive any vehicle, operate any heavy machinery or use any sharp objects for the remainderof the day. xx Be cautious of stairways, since your coordination may be impaired and do not drink alcoholic beverages or make major decisions for 24 hours. xx May resume driving a car in ___6 hours if no sedation was used, in 24 hours if sedation wasused. xx Resume regular activity in 24 hours.. xx Resume your regular diet. Progress diet slowly, starting with water. If no difficulty with swallowing, progress to clear liquids (tea, broth, stephany mack) and then on to solids. xx Resume aspirin products/blood thinners in 24 hours. Start Lovenox injections on date . xx Keep bandaid dry and remove in 24 hours. MEDICATIONS: BEFORE PROCEDURE xx Physician s Pre-procedure Instruction Sheet given to patient. Stop Coumadin/Pradaxa/Eliquis/Xarelto for 5 days before procedure - date . Have ProTime drawn on (Try to have drawn at [facility] to speed results to us). Stop blood thinners Plavix, Pletal for 10 days before procedure date . Stop Aspirin, Persantine, Aggrenox for 7 days before procedure date . Stop Lovenox 24 hours before your appointment time. xx Stop anti-inflammatory medications (Aleve, Advil, Mobic, Naprosyn, etc.) for 5 days before procedure. xx Stop ALL Supplements and Vitamins for 10 days before your procedure. xx Take blood pressure medications the day of your procedure. xx Do not eat ____8 hours before procedure. xx Do not drink 2___ hours before procedure. xx May have clear liquids (water, plain tea/coffee, clear soda) up to 2 hours before procedure. xx Bring someone to drive you home. [facility] 11-04-2022 Summary of episode note Discharge Instructions Thank you for allowing [facility] to assist you with your healthcare needs. The following is importantdischarge information regarding your hospital visit. Your Care Team ELMER RICHARDS MD, DR. 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 What How Much When Why Instructions Last Dose Unchanged acetaminophen (Tylenol) 325 Milligram by mouth As needed for as needed for pain Unchanged diroximel fumarate (Vumerity 231 mg oral delayed release capsule) 2 cap by mouth Two (2) times a day do not take with high fat meal Unchanged diroximel fumarate (Vumerity 231 mg oral delayed release capsule) 1 cap by mouth Two (2) times a day Unchanged empagliflozin (Jardiance 25 mg oral tablet) 1 tab(s) by mouth Once a day (in the morning) Unchanged gabapentin (gabapentin 300 mg oral capsule) 1 cap by mouth Two (2) times a day Lumbar radiculopathy Duration: 30 Days fill date 2021 Unchanged hydroCHLOROthiazide (hydroCHLOROthiazide 25 mg oral tablet) 1 tab(s) by mouth Once a day Unchanged insulin degludec (Tresiba FlexTouch 200 units/ mL 3 mL subcutaneous solution) Subcutaneous Once a day 28 UNITS UNDER SKIN DAILY Unchanged levothyroxine 150 Microgram Once a day Unchanged losartan (losartan 50 mg oral tablet) TAKE 1 TABLET BY MOUTH TWICE A DAY Unchanged meloxicam (meloxicam 7.5 mg oral tablet) 1 tab(s) by mouth Once a day Duration: 90 Days Unchanged metFORMIN (metFORMIN 1000 mg oral tablet (IR)) TAKE 1 TABLET BY MOUTH TWICE A DAY WITH MEALS Unchanged metoprolol (Metoprolol Succinate ER 50 mg oral TABLET extended release) 1 tab(s) by mouth Once a day Unchanged rosuvastatin (rosuvastatin 5 mg oral tablet) 1 tab(s) by mouth Once a day Unchanged tiZANidine (tiZANidine 4 mg oral tablet) 1 tab(s) by mouth Daily at bedtime Duration: 30 Days fill date 2021 Please take this list to your next doctor s visit. Bring all medications you take, including over the counter medications, herbals and other supplements with you to your doctor s visit. Patients and families are reminded to discard old lists and to update any records with all medication providers or retail pharmacies. Education Materials [facility] Discharge Instructions POST PROCEDURE INSTRUCTIONS ___xx__There are no general limitations to your activities. You may experience some weakness for the next 3-4 hours, in which case you should limit your activity until strength and sensation returns. xx Your pain may increase for the next 24-48 hours, until the injection begins to relieve your pain. xx Rest at home today. xx Do not drive any vehicle, operate any heavy machinery or use any sharp objects for the remainderof the day. xx Be cautious of stairways, since your coordination may be impaired and do not drink alcoholic beverages or make major decisions for 24 hours. xx May resume driving a car in ___6 hours if no sedation was used, in 24 hours if sedation wasused. xx Resume regular activity in 24 hours.. xx Resume your regular diet. Progress diet slowly, starting with water. If no difficulty with swallowing, progress to clear liquids (tea, broth, stephany mack) and then on to solids. xx Resume aspirin products/blood thinners in 24 hours. Start Lovenox injections on date . xx Keep bandaid dry and remove in 24 hours. MEDICATIONS: BEFORE PROCEDURE xx Physician s Pre-procedure Instruction Sheet given to patient. Stop Coumadin/Pradaxa/Eliquis/Xarelto for 5 days before procedure - date . Have ProTime drawn on (Try to have drawn at [facility] to speed results to us). Stop blood thinners Plavix, Pletal for 10 days before procedure date . Stop Aspirin, Persantine, Aggrenox for 7 days before procedure date . Stop Lovenox 24 hours before your appointment time. xx Stop anti-inflammatory medications (Aleve, Advil, Mobic, Naprosyn, etc.) for 5 days before procedure. xx Stop ALL Supplements and Vitamins for 10 days before your procedure. xx Take blood pressure medications the day of your procedure. xx Do not eat ____8 hours before procedure. xx Do not drink 2___ hours before procedure. xx May have clear liquids (water, plain tea/coffee, clear soda) up to 2 hours before procedure. xx Bring someone to drive you home. Signatures Patient Education Materials PM Discharge Instructions, Kaushik gil (08/05/20) ([id number]) Medication Leaflets My discharge plan and instructions have been reviewed and explained to me and I,KVNG LANDRY understand my current condition and have read and understand these discharge instructions. I have received a written copy of the plan/instructions. If I have questions, I am aware that I should contactmy doctor. Patient/Art Director Signature: Date/Time: Relationship to Patient: Witness Name/Signature: Date/Time: [facility] [id number] History and physical note History and Physical Update I have examined the patient; reviewed the History and Physical and there are no changes to the History and Physical unless noted below. February 21, 2022 office note Digitally Signed by CHRISTINA JENNINGS MD on 03/09/2022 09:[address] [facility] [id number] Hospital Discharge instructions Patient Education 01/16/2022 07:40:09 PM Discharge Instructions, Kaushik gil (08/05/20) ([id number]) [facility] Management Discharge Instructions POST PROCEDURE INSTRUCTIONS ___xx__There are no general limitations to your activities. You may experience some weakness for the next 3-4 hours, in which case you should limit your activity until strength and sensation returns. xx Your pain may increase for the next 24-48 hours, until the injection begins to relieve your pain. xx Rest at home today. xx Do not drive any vehicle, operate any heavy machinery or use any sharp objects for the remainderof the day. xx Be cautious of stairways, since your coordination may be impaired and do not drink alcoholic beverages or make major decisions for 24 hours. xx May resume driving a car in ___6 hours if no sedation was used, in 24 hours if sedation wasused. xx Resume regular activity in 24 hours.. xx Resume your regular diet. Progress diet slowly, starting with water. If no difficulty with swallowing, progress to clear liquids (tea, broth, stephany mack) and then on to solids. xx Resume aspirin products/blood thinners in 24 hours. Start Lovenox injections on date . xx Keep bandaid dry and remove in 24 hours. MEDICATIONS: BEFORE PROCEDURE xx Physician s Pre-procedure Instruction Sheet given to patient. Stop Coumadin/Pradaxa/Eliquis/Xarelto for 5 days before procedure - date . Have ProTime drawn on (Try to have drawn at [facility] to speed results to us). Stop blood thinners Plavix, Pletal for 10 days before procedure date . Stop Aspirin, Persantine, Aggrenox for 7 days before procedure date . Stop Lovenox 24 hours before your appointment time. xx Stop anti-inflammatory medications (Aleve, Advil, Mobic, Naprosyn, etc.) for 5 days before procedure. xx Stop ALL Supplements and Vitamins for 10 days before your procedure. xx Take blood pressure medications the day of your procedure. xx Do not eat ____8 hours before procedure. xx Do not drink 2___ hours before procedure. xx May have clear liquids (water, plain tea/coffee, clear soda) up to 2 hours before procedure. xx Bring someone to drive you home. [facility] 09-13-2022 Summary of episode note Discharge Instructions Thank you for allowing [facility] to assist you with your healthcare needs. The following is importantdischarge information regarding your hospital visit. 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 What How Much When Why Instructions Last Dose Unchanged acetaminophen (Tylenol) 325 Milligram by mouth As needed for as needed for pain Unchanged diroximel fumarate (Vumerity 231 mg oral delayed release capsule) 1 cap by mouth Two (2) times a day Unchanged empagliflozin (Jardiance 25 mg oral tablet) 1 tab(s) by mouth Once a day (in the morning) Unchanged gabapentin (gabapentin 300 mg oral capsule) 1 cap by mouth Two (2) times a day Lumbar radiculopathy Duration: 90 Days Unchanged hydroCHLOROthiazide (hydroCHLOROthiazide 25 mg oral tablet) 1 tab(s) by mouth Once a day Unchanged insulin degludec (Tresiba FlexTouch 200 units/ mL 3 mL subcutaneous solution) Subcutaneous Once a day 28 UNITS UNDER SKIN DAILY Unchanged levothyroxine 150 Microgram Once a day Unchanged losartan (losartan 50 mg oral tablet) TAKE 1 TABLET BY MOUTH TWICE A DAY Unchanged meloxicam (meloxicam 7.5 mg oral tablet) 1 tab(s) by mouth Once a day Duration: 90 Days Unchanged metFORMIN (metFORMIN 1000 mg oral tablet (IR)) TAKE 1 TABLET BY MOUTH TWICE A DAY WITH MEALS Unchanged metoprolol (Metoprolol Succinate ER 50 mg oral TABLET extended release) 1 tab(s) by mouth Once a day Unchanged rosuvastatin (rosuvastatin 5 mg oral tablet) 1 tab(s) by mouth Once a day Unchanged tiZANidine (tiZANidine 4 mg oral tablet) 1 tab(s) by mouth Daily at bedtime Duration: 90 Days Fill 2021. Please take this list to your next doctor s visit. Bring all medications you take, including over the counter medications, herbals and other supplements with you to your doctor s visit. Patients and families are reminded to discard old lists and to update any records with all medication providers or retail pharmacies. [employer] [facility] Discharge Instructions POST PROCEDURE INSTRUCTIONS ___xx__There are no general limitations to your activities. You may experience some weakness for the next 3-4 hours, in which case you should limit your activity until strength and sensation returns. xx Your pain may increase for the next 24-48 hours, until the injection begins to relieve your pain. xx Rest at home today. xx Do not drive any vehicle, operate any heavy machinery or use any sharp objects for the remainderof the day. xx Be cautious of stairways, since your coordination may be impaired and do not drink alcoholic beverages or make major decisions for 24 hours. xx May resume driving a car in ___6 hours if no sedation was used, in 24 hours if sedation wasused. xx Resume regular activity in 24 hours.. xx Resume your regular diet. Progress diet slowly, starting with water. If no difficulty with swallowing, progress to clear liquids (tea, broth, stephany mack) and then on to solids. xx Resume aspirin products/blood thinners in 24 hours. Start Lovenox injections on date . xx Keep bandaid dry and remove in 24 hours. MEDICATIONS: BEFORE PROCEDURE xx Physician s Pre-procedure Instruction Sheet given to patient. Stop Coumadin/Pradaxa/Eliquis/Xarelto for 5 days before procedure - date . Have ProTime drawn on (Try to have drawn at [facility] to speed results to us). Stop blood thinners Plavix, Pletal for 10 days before procedure date . Stop Aspirin, Persantine, Aggrenox for 7 days before procedure date . Stop Lovenox 24 hours before your appointment time. xx Stop anti-inflammatory medications (Aleve, Advil, Mobic, Naprosyn, etc.) for 5 days before procedure. xx Stop ALL Supplements and Vitamins for 10 days before your procedure. xx Take blood pressure medications the day of your procedure. xx Do not eat ____8 hours before procedure. xx Do not drink 2___ hours before procedure. xx May have clear liquids (water, plain tea/coffee, clear soda) up to 2 hours before procedure. xx Bring someone to drive you home. Signatures Patient Education Materials PM Discharge Instructions, all,Takla (08/05/20) ([id number]) Medication Leaflets My discharge plan and instructions have been reviewed and explained to me and I,KVNG LANDRY understand my current condition and have read and understand these discharge instructions. I have received a written copy of the plan/instructions. If I have questions, I am aware that I should contactmy doctor. Patient/Art Director Signature: Date/Time: Relationship to Patient: Witness Name/Signature: Date/Time: [facility] [id number] History and physical note History and Physical Update I have examined the patient; reviewed the History and Physical and there are no changes to the History and Physical unless noted below. January 03, 2022 office note Digitally Signed by CHRISTINA JENNINGS MD on 01/16/2022 07:[address] [facility] [id number] Hospital Discharge instructions Patient Education 11/14/2021 09:51:51 PM Discharge Instructions, Kaushik gil (08/05/20) ([id number]) [facility] Pain Management Discharge Instructions POST PROCEDURE INSTRUCTIONS ___xx__There are no general limitations to your activities. You may experience some weakness for the next 3-4 hours, in which case you should limit your activity until strength and sensation returns. xx Your pain may increase for the next 24-48 hours, until the injection begins to relieve your pain. xx Rest at home today. xx Do not drive any vehicle, operate any heavy machinery or use any sharp objects for the remainderof the day. xx Be cautious of stairways, since your coordination may be impaired and do not drink alcoholic beverages or make major decisions for 24 hours. xx May resume driving a car in ___6 hours if no sedation was used, in 24 hours if sedation wasused. xx Resume regular activity in 24 hours.. xx Resume your regular diet. Progress diet slowly, starting with water. If no difficulty with swallowing, progress to clear liquids (tea, broth, stephany mack) and then on to solids. xx Resume aspirin products/blood thinners in 24 hours. Start Lovenox injections on date . xx Keep bandaid dry and remove in 24 hours. MEDICATIONS: BEFORE PROCEDURE xx Physician s Pre-procedure Instruction Sheet given to patient. Stop Coumadin/Pradaxa/Eliquis/Xarelto for 5 days before procedure - date . Have ProTime drawn on (Try to have drawn at [facility] to speed results to us). Stop blood thinners Plavix, Pletal for 10 days before procedure date . Stop Aspirin, Persantine, Aggrenox for 7 days before procedure date . Stop Lovenox 24 hours before your appointment time. xx Stop anti-inflammatory medications (Aleve, Advil, Mobic, Naprosyn, etc.) for 5 days before procedure. xx Stop ALL Supplements and Vitamins for 10 days before your procedure. xx Take blood pressure medications the day of your procedure. xx Do not eat ____8 hours before procedure. xx Do not drink 2___ hours before procedure. xx May have clear liquids (water, plain tea/coffee, clear soda) up to 2 hours before procedure. xx Bring someone to drive you home. [facility] 07-12-2022 Summary of episode note Discharge Instructions Thank you for allowing [facility] to assist you with your healthcare needs. The following is importantdischarge information regarding your hospital visit. 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 What How Much When Why Instructions Last Dose Changed gabapentin (gabapentin 300 mg oral capsule) 1 cap by mouth Two (2) times a day Lumbar radiculopathy Duration: 90 Days Pickup at [facility]/pharmacy #[id number] Changed meloxicam (meloxicam 7.5 mg oral tablet) 1 tab(s) by mouth Once a day Duration: 90 Days Pickup at [facility]/pharmacy #[id number] Changed tiZANidine (tiZANidine 4 mg oral tablet) 1 tab(s) by mouth Daily at bedtime Duration: 90 Days [facility] 2021[id number] Unchanged acetaminophen (Tylenol) Unchanged empagliflozin (Jardiance 25 mg oral tablet) 1 tab(s) by mouth Once a day (in the morning) Unchanged glatiramer (Copaxone 40 mg/ mL subcutaneous solution) 40 Milligram Subcutaneous Saturday / Saturday / Saturday Unchanged hydroCHLOROthiazide (hydroCHLOROthiazide 25 mg oral tablet) 1 tab(s) by mouth Once a day Unchanged insulin degludec (Tresiba FlexTouch 200 units/ mL 3 mL subcutaneous solution) Subcutaneous Once a day 28 UNITS UNDER SKIN DAILY Unchanged levothyroxine 150 Microgram Once a day Unchanged losartan (losartan 50 mg oral tablet) TAKE 1 TABLET BY MOUTH TWICE A DAY Unchanged metFORMIN (metFORMIN 1000 mg oral tablet (IR)) TAKE 1 TABLET BY MOUTH TWICE A DAY WITH MEALS Unchanged metoprolol (Metoprolol Succinate ER 50 mg oral TABLET extended release) Unchanged rosuvastatin (rosuvastatin 5 mg oral tablet) 1 tab(s) by mouth Once a day Pharmacy Information [facility]/pharmacy #[id number]: [address], [place] [phone] Please take this list to your next doctor s visit. Bring all medications you take, including over the counter medications, herbals and other supplements with you to your doctor s visit. Patients and families are reminded to discard old lists and to update any records with all medication providers or retail pharmacies. [employer] [facility] Discharge Instructions POST PROCEDURE INSTRUCTIONS ___xx__There are no general limitations to your activities. You may experience some weakness for the next 3-4 hours, in which case you should limit your activity until strength and sensation returns. xx Your pain may increase for the next 24-48 hours, until the injection begins to relieve your pain. xx Rest at home today. xx Do not drive any vehicle, operate any heavy machinery or use any sharp objects for the remainderof the day. xx Be cautious of stairways, since your coordination may be impaired and do not drink alcoholic beverages or make major decisions for 24 hours. xx May resume driving a car in ___6 hours if no sedation was used, in 24 hours if sedation wasused. xx Resume regular activity in 24 hours.. xx Resume your regular diet. Progress diet slowly, starting with water. If no difficulty with swallowing, progress to clear liquids (tea, broth, stephany mack) and then on to solids. xx Resume aspirin products/blood thinners in 24 hours. Start Lovenox injections on date . xx Keep bandaid dry and remove in 24 hours. MEDICATIONS: BEFORE PROCEDURE xx Physician s Pre-procedure Instruction Sheet given to patient. Stop Coumadin/Pradaxa/Eliquis/Xarelto for 5 days before procedure - date . Have ProTime drawn on (Try to have drawn at [facility] to speed results to us). Stop blood thinners Plavix, Pletal for 10 days before procedure date . Stop Aspirin, Persantine, Aggrenox for 7 days before procedure date . Stop Lovenox 24 hours before your appointment time. xx Stop anti-inflammatory medications (Aleve, Advil, Mobic, Naprosyn, etc.) for 5 days before procedure. xx Stop ALL Supplements and Vitamins for 10 days before your procedure. xx Take blood pressure medications the day of your procedure. xx Do not eat ____8 hours before procedure. xx Do not drink 2___ hours before procedure. xx May have clear liquids (water, plain tea/coffee, clear soda) up to 2 hours before procedure. xx Bring someone to drive you home. Additional Information VACCINATE! IT SAVES LIVES! Members of the community who have not yet received the COVID-19 vaccine and would like to receive it can visit one of [facility] vaccine clinics. There are many vaccine clinic locations within the [facility]. For locations and available times, please visit [email or web address] It is important to note that some COVID mobile vaccine clinics are held outdoors and may be canceled in rainy or stormy conditions. To learn more about pediatric vaccinations (ages 5-11), we invite you to visit the [facility] webpage. [email or web address] stions.htmlTo learn more about the COVID-19 vaccine, we invite you to visit the [facility] website for a list of frequently asked questions. [email or web address] _[email or web address]-Questions.pdf [facility] Patient Portal Access Instructions: Stay connected with your healthcare team and access your personal medical information anytime with the [facility] Patient Portal.If you would like a full copy of your medical records, please contact the [facility] Medical Records Department, Saturday through Saturday between 8a.m. and 4:30p.m. Please follow the directions below to access the portal: 1.Access the email account you provided upon registration to the hospital.2.Look for an invitation email from [facility].3.Open the email and access the invitation link: Accept Invitation to [facility]4.Fill in the required horowitz to create your account. Sign into [email or web address] with your username and password that you created in the above steps to stay up to date. You can then view a summary of results, a summary of your visits, and the ability to download your summaries to your computer or send the information securely to a physician. Remember that your healthcare information is confidential, so carefully consider who you will allow to register on the [facility] Patient Portal for access to your information. You can also access the [facility] Patient Portal on the [employer]. Simply click on "Health Records" under "HealthData" and then click on the [employer] logo. HOW TO SAFELY DISPOSE OF PRESCRIPTION MEDICATIONS Please use one of the following methods to safely dispose of your unused medications. 1.Use a drug disposal kit: the drug disposal pouch allows you to safely discard your old and unuseddrugs. Ask your nurse to give you one when you are discharged.2.Visit a local take-back location: Many local pharmacies and police departments have programs that collect old and unwanted prescriptiondrugs. Call your local pharmacy or go to http://[email or web address]/6U0Ru6n to find one close to you.3.Make use of household items: Use cat litter or old coffee grounds to dispose medications if other options arenot available. Mix your drugs with these household products, seal them in an airtight container andthrow it into the garbage. Call [facility]: [phone] to be sure your drugs can be disposed of in this way. Some medicines may require a different approach.4.Never flush your medications down the toilet. IF YOU HAVE BEEN PRESCRIBED AN OPIOID FOR PAIN If you have been prescribed an opioid (such as hydrocodone, oxycodone or morphine), it is critical to understand the possible side effects and risks of opioid pain medications. Even when taken as directed, opioids can have several side effects including: Tolerance, meaning you might need to take more of a medication for the same pain relief. Nausea, vomiting and/or constipation. Sleepiness, dizziness, dry mouth, confusion, depression or itching. Physical dependence, meaning you have withdrawal symptoms when a medication is stopped, can develop within a few days. KNOW YOUR RESPONSIBILITIES It is important to know exactly how much and how often to take the opioid pain medications you are prescribed. Never take opioids in higher amounts or more often than prescribed. Do not combine opioids with alcohol or other drugs that cause drowsiness, such as benzodiazepines, also known as benzos, including diazepam and alprazolam, muscle relaxants or sleep aids. Never sell or share prescription opioids. This is illegal. Store opioids in a secure place and out of reach of others (including children, family, friends and visitors). The last page of this document has been signed and retained as a CHART COPY. Signatures Patient Education Materials PM Discharge Instructions, all,Kaushik (08/05/20) ([id number]) Medication Leaflets My discharge plan and instructions have been reviewed and explained to me and I,KVNG LANDRY understand my current condition and have read and understand these discharge instructions. I have received a written copy of the plan/instructions. If I have questions, I am aware that I should contactmy doctor. Patient/Art Director Signature: Date/Time: Relationship to Patient: Witness Name/Signature: Date/Time: [facility] [id number] Evaluation note* Diagnosis Onset Date Resolution Status Heart block acute History of permanent cardiac pacemaker placement Octob er 2020 acute Mobitz type 2 second degree AV block acute Coronary-myocardial bridge a cute Fatigue acute History of permanent cardiac pacemaker placement Octob er 2020 acute Paroxysmal atrial fibrillation acute Diabetes chronic Essential (primary) hypertension chronic Hyperlipidemia chronic Palpitations [facility] Work Phone: 1(215) 108-829910-04-2021 Evaluation note* Diagnosis Onset Date Resolution Status Heart block acute History of permanent cardiac pacemaker placement Octob er 2020 acute Mobitz type 2 second degree AV block acute Paroxysmal atrial fibrillation acute Coronary-myocardial bridge a cute Fatigue acute History of permanent cardiac pacemaker placement Octob er 2020 acute Paroxysmal atrial fibrillation acute Diabetes chronic Essential (primary) hypertension chronic Hyperlipidemia chronic Palpitations chronic Diabetes chronic Essential (primary) hypertension chronic 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 Obesity [facility] Work Phone: 1(785) 299-430210-04-2021 Evaluation note* Diagnosis Onset Date Resolution Status Heart block acute History of permanent cardiac pacemaker placement Octob er 2020 acute Mobitz type 2 second degree AV block acute Paroxysmal atrial fibrillation acute Fatigue acute History of permanent cardiac pacemaker placement Octob er 2020 acute Paroxysmal atrial fibrillation acute Coronary-myocardial bridge c hronic Diabetes chronic Essential (primary) hypertension chronic Hyperlipidemia chronic Palpitations chronic Diabetes chronic Essential (primary) hypertension chronic 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 Obesity chronic History of permanent cardiac pacemaker placement Octob er 2020 acute Paroxysmal atrial fibrillation acute Coronary-myocardial bridge c hronic Essential (primary) hypertension chronic Hyperlipidemia chronic Palpitations chronic [facility] Work Phone: 1(349) 280-955410-04-2021 Evaluation note* Diagnosis Onset Date Resolution Status History of permanent cardiac pacemaker placement Octob er 2020 acute Mobitz type 2 second degree AV block acute Paroxysmal atrial fibrillation acute [facility] Work Phone: 1(105) 692-570710-04-2021 Evaluation note* Diagnosis Onset Date Resolution Status History of permanent cardiac pacemaker placement Octob er 2020 acute Mobitz type 2 second degree AV block acute Paroxysmal atrial fibrillation acute Depression chronic Diabetes chronic Hyperlipidemia chronic Hypothyroidism chronic Obesity chronic Vitamin D deficiency chronic [facility] Work Phone: Discharge summary Author Marcello Doe [facility] Note Date/Time October 09, 2024 12:34 pm [facility] Medical Records Department [address] [place] [id number] Emergency Department Summary 10/09/24 MR#: [id number] Acct: [id number] Name: KVNG LANDRY LEXI Rep #:[id number] : 1970 54 From: Marcello Doe MD PCP: Dr. Elmre Richards MD Status:REG ER Location: ED HPI History of Present Illness Chief Complaint: Edema Detail of Chief Complaint: Right leg pain and swelling and respiratory symptoms Informant: patient Onset/Context/Timing Onset: Days (Cough and congestion started 3 days ago) and Weeks (Leg pain and swelling started approximate week ago) Context: Sudden Onset Timing: Continuous (Leg pain has been constant located proximal calf popliteal fossa) and Intermittent (Respiratory symptoms been intermittent) Quality: Pain Location: Posterior leg on the right Current Severity: Mild Maximum Severity: Moderate Worsened by: Palpation Relieved by: Nothing Associated Symptoms Associated Symptoms: HPI narrative Narrative Narrative: Patient is a 54-year-old woman. She is status post microdiscectomy beginning ofApril L4-L5 for herniated disc. She contacted her surgeon. Because she has been complaining of leg pain swelling and reported shortness of breath he recommended she come to the emergency room for evaluation. She denies fever, chills night sweats. She denies rhinorrhea or postnasal drainage. She denies sore throat. Her cough is nonproductive. She denies chest pressure, tightness or heaviness. She denies pleuritic chest pain. She denies GI symptoms. She denies prior history of DVT or PE. She is presently on a baby aspirin. She is on no anticoagulant. Prior similar symptoms: No Recent Illness/Hospitalization: Yes [facility] Medical History Preop cardiovascular exam Edema of both upper extremities Lupus (systemic lupus erythematosus) Nonsustained monomorphic ventricular tachycardia Pacemaker lead malfunction Coronary-myocardial bridge Obesity Anxiety Thyroid disease Rheumatoid arthritis Anemia Easy bruising Excessive bleeding Migraine headache Back pain Hx of vertigo Multiple sclerosis Dietary restriction Former smoker Shortness of breath on exertion History of pain when walking History of edema Cardiology follow-up encounter Mobitz type 2 second degree AV block Arthritis Seasonal allergies Coronary-myocardial bridge Abnormal electrocardiogram Vitamin D deficiency Hypothyroidism Essential (primary) hypertension Spinal stenosis Uncontrolled diabetes mellitus with microalbuminuria Type 2 diabetes mellitus Cervicalgia Hyperlipidemia Insomnia Right bundle branch block (RBBB) Home Medications ?Medication ?Instructions ?Recorded ?Last Taken ?Type tizanidine 4 mg capsule 4 mg PO QHS muscle spasms Unknown History lancing device with lancets kit #1 ea 03/11/23 Unknown Rx (Accu-Chek FastClix Lancing Device kit) blood sugar diagnostic (Accu-Chek #150 ea 07/08/23 Unk nown Rx Guide test strips) blood-glucose meter (Accu-Chek #1 ea 07/08/23 Unknown Rx Guide Glucose Meter) lancets (Accu-Chek Fastclix Lancet #200 ea 07/08/23 Un known Rx Drum) aspirin 81 mg tablet,delayed 81 mg PO DAILY 07/12/23 U nknown History release (Adult Low Dose Aspirin) rosuvastatin 5 mg tablet 5 mg PO DAILY #90 tabs 11/21 Unknown Rx diclofenac sodium 50 mg 50 mg PO TID 01/01/24 Unknow n History tablet,delayed release semaglutide 0.25 mg or 0.5 mg (2 0.5 mg (0.736 mL) sub cut QWEEK #3 08/28/24 Unknown Rx mg/3 mL) subcutaneous pen injector mL (Ozempic) insulin lispro 100 unit/mL 15 unit (0.15 mL) subcut TI D #40.5 05/11/24 Unknown Rx subcutaneous pen (Humalog KwikPen mL (U-100) Insulin) blood-glucose sensor (FreeStyle #2 ea 05/18/24 Unknown Rx Luis Miguel 3 Sensor device) modafinil 200 mg tablet 200 mg PO QDAY 05/18/24 Unkn own History sertraline 50 mg tablet 50 mg PO QDAY 05/18/24 Unkno wn History levothyroxine 150 mcg tablet 150 mcg PO DAILY thyroid #90 tabs 05/28/24 Unknown Rx pen needle, diabetic 32 gauge x #400 ea 07/03/24 Unkno wn Rx " (BD Ultra-Fine Rin Pen Needle) cholecalciferol (vitamin D3) 50 50 mcg PO QDAY #90 cap s 07/15/24 Unknown Rx mcg (2,000 unit) capsule carvedilol 25 mg tablet 12.5 mg (1/2 x 25 mg) PO BID #60 07/28/24 Unknown Rx tabs losartan 50 mg tablet 50 mg PO QDAY #180 tabs 07/05 09/27 Unknown Rx blood sugar diagnostic (True #50 ea 08/04/24 Unknown R x Metrix Glucose Test Strip) blood-glucose meter (True Metrix #1 ea 08/04/24 Unknow n Rx Glucose Meter) lancets 30 gauge (BD Microtainer #100 ea 08/04/24 Unkn own Rx Lancet) acetaminophen 500 mg tablet 1,000 mg PO BID PRN Unknown History (Tylenol Extra Strength) diroximel fumarate 231 mg 462 mg PO BID 08/06/24 Unkno wn History capsule,delayed release (Vumerity) gabapentin 600 mg tablet 600 mg PO BID 08/06/24 Unkno wn History hydrochlorothiazide 25 mg tablet 25 mg PO DAILY this i s a dose 09/21/24 Unknown Rx increase #90 tabs insulin glargine 100 unit/mL (3 32 unit (0.32 mL) subc ut QAM #30 mL 09/23/24 Unknown Rx mL) subcutaneous pen (Lantus Solostar U-100 Insulin) Allergy/AdvReac Type Severity Reaction Status Date / Time glatiramer (copolymer 1) Allergy Severe hypotension, Verified 10/09/24 10:45 (From Copaxone) shaking, irregular breathing empagliflozin (From Allergy Intermediate yeast Verified 10/09/24 10:45 Jardiance) infection codeine Allergy Anaphylaxis Verified 10/09/24 10:45 Penicillins Allergy rash Verified 10/09/24 10:45 amlodipine AdvReac Intermediate Swelling Verified 10/09/24 10:45 in shins and ankles ached erythromycin base (From AdvReac Unknown Verified 10/09/24 10:45 Erythrocin) hydrocodone (From Vicodin) AdvReac syncope Verified 10/09/24 10:45 ketorolac (From Toradol) AdvReac anxious Verified 10/09/24 10:45 Family History Other Adopted Surgical History History of permanent cardiac pacemaker placement (02/06/21) History of cardiac catheterization History of left heart catheterization (07/30/18) Hx of cholecystectomy History of carpal tunnel release History of hysterectomy History of parathyroidectomy H/O partial thyroidectomy Social History adopted: Yes household members: spouse and children current occupational status: employed current occupation: [employer] Smoking Status: Former smoker quit date: 05/06/96 pack-years: 2 alcohol intake: never substance use type: does not use caffeine: Yes what type of physical activity do you participate in: none frequency: daily ROS ROS ED Constitutional Constitutional ED: Denies chills, fever(s), subjective, sweats or weight loss Eyes Eyes: Denies blurry vision or change in vision ENT ENT ED: Denies rhinorrhea or sore throat Cardiovascular Cardiovascular: Denies chest pain, orthopnea, palpitations, paroxysmal nocturnaldyspnea or racing heartbeat Respiratory/Chest Respiratory/Chest: Reports cough and dyspnea; Denies dyspnea on exertion, orthopnea, paroxysmal nocturnal dyspnea or sputum Gastrointestinal Gastrointestinal: Denies abdominal pain, nausea or vomiting Musculoskeletal Musculoskeletal: Reports other Details: Posterior right lower extremity pain, leg ; Denies back pain Integumentary Denies rash Neurologic Neurologic: Denies headache(s) or paresthesias Hematologic/Lymphatic Hematologic/Lymphatic: Reports systems reviewed and no addt'l complaints, exceptas documented EXAM Physical Exam Const Vital Signs: 10/09/24 10:44 10/09/24 10:44 Temperature 97.5 F L Temperature Source Temporal Pulse Rate 72 Respiratory Rate 14 Respiratory Effort Normal Non-Labored Respiratory Pattern Normal Blood Pressure 147/80 H Blood Pressure Mean 102 Pulse Ox 98 Oxygen Delivery Method Room Air Positive well nourished and well developed Constitutional Narrative: Blood pressure slightly elevated. Patient not tachypneic nor is she hypoxic. General Appearance ED: well developed and pallor HEENT Reports moist mucous membranes HEENT Narrative: Head is atraumatic normocephalic. Ears normal. Nares patent. Posterior pharynx is normal Eyes PERRL and EOMs intact bilaterally General Eye ED: Negative for pale conjunctiva or scleral icterus Neck no lymphadenopathy, supple and no JVD Chest Wall inspection of chest normal and palpation of chest normal Resp normal respiratory effort and clear to auscultation bilaterally Cardio regular rate, regular rhythm, S1 normal heart sound, S2 normal heart sound and no murmurs GI normal to inspection, nondistended, normoactive bowel sounds and non-tender Extremity Negative for normal to inspection Extremity Narrative: There is swelling of the right lower extremity. There is pain along the distribution deep venous system i.e. proximal calf, popliteal fossa and abductorcanal. There is question of some leg vein distention. Patient is on baby aspirin because she has a history of lupus anticardiolipin. She states if she ever has a blood clot she will be on anticoagulant for life. Patient also reports cough and shortness of breath started 3 days ago. Cough is nonproductive. She denies fever or chills. She denies any other symptoms. General Extremety ED: Yes tenderness; Negative for edema General Extremity: Negative for edema Neuro oriented x3, CN's II-XII intact bilaterally and no sensory deficits noted Sensorium / Orientation: alert Motor Exam: strength 5/5 throughout Psych mental status grossly normal Skin no rashes or lesions noted, no wounds and skin turgor normal General Skin Exam: pallor; Negative for elasticity normal or jaundice MDM MDM MDM Narrative Medical decision making narrative: Light of the fact the patient is status post surgery not been as active as atraumatic right leg swelling with pain palpation along the distribution deep venous system and has a Wells score of 2 patient's moderate pretest probability for DVT. Venous duplex study was ordered. Because she reports upper respiratory symptoms with cough a chest x-ray was obtained to assess for pneumonia. Prior records were reviewed. Last ER visit was February 2021. Patient's final diagnosis was noncardiac chest pain. She also had AV block. She does have a pacemaker. History & Record Review Additional record(s) reviewed:: Prior ED visit and Prior labs Lab Data Attestation: I reviewed the patient's lab results. Lab results narrative: CBC is unremarkable. Basic metabolic panel reveals a glucose of 255 with a normal CO2 anion gap. Patient does have history of diabetes. She is on insulin. Labs: Laboratory Results - last 24 hr 10/09/24 11:19 WBC 7.2 RBC 4.30 Hgb 12.9 Hct 37.8 MCV 87.9 MCH 30.0 MCHC 34.1 RDW Std Deviation 40.5 RDW Coeff of George 12.6 Plt Count 264 MPV 9.4 Immature Gran % (Auto) 0.300 Neut % (Auto) 74.5 H Lymph % (Auto) 11.2 L Porter % (Auto) 5.7 Eos % (Auto) 7.9 H Baso % (Auto) 0.4 Absolute Neuts (auto) 5.4 Absolute Lymphs (auto) 0.81 L Nucleated RBC % 0 Sodium 139 Potassium 4.0 Chloride 102 Carbon Dioxide 27.6 Anion Gap 9 BUN 10 Creatinine 0.64 L Est GFR (MDRD) Non-Af 105 BUN/Creatinine Ratio 15.4 Glucose 255 H Calcium 9.1 Venous duplex study reveals a Cullen's cyst. There is no evidence of DVT. Radiography Chest X-Ray - ED: 2 View and Read by ED Physician (2 view chest x-ray reveals hyperinflation. There is no obvious infiltrate and there is no effusion. Patient has dual-chamber pacemaker noted. Mediastinum appears unremarkable. Osseous structures with no acute process.) Diagnostic Testing: Clinical Impression(s) from Imaging Studies Chest X-Ray 10/09/24 12:10 IMPRESSION: Examination limited by AP portable technique, hypoinflation, body habitus, and patient motion. A left thoracic transvenous pacemaker with atrial and ventricular leads remains in place. Although lungs are hypoinflated, no acute pneumonic process is appreciated. No pleural effusion or pneumothorax is seen. The cardiomediastinal silhouette is stable, without evidence of cardiomegaly. Mild thoracic spine degenerative changes are seen. Reading Location: [address] Treatment and Re-Evaluation :: Patient was informed the results. She is discharged to home. Discharge Plan Triage Chief Complaint: Edema ED Provider: Marcello Doe Dx/Rx/DC Orders Clinical Impression: Synovial cyst of popliteal space [Cullen], right knee, Mobitz type 2 second degree AV block, History of permanent cardiac pacemaker placement, Lupus (systemic lupus erythematosus), Acute upper respiratory infection, Type 1 diabetes mellitus with hyperglycemia Instructions: ED Cullen's Cyst, ED URI, Viral, No Abx (Adult) Prescriptions: No Action Vumerity 231 mg capsule,delayed release(DR/EC) 462 mg PO BID aspirin [Adult Low Dose Aspirin] 81 mg tablet,delayed release (DR/EC) 81 mg PO DAILY diclofenac sodium 50 mg tablet,delayed release (DR/EC) 50 mg PO TID Ozempic 0.25 mg or 0.5 mg (2 mg/3 mL) pen injector 0.5 mg subcut QWEEK Qty: 3 5RF modafinil 200 mg tablet 200 mg PO QDAY sertraline 50 mg tablet 50 mg PO QDAY (DME) FreeStyle Luis Miguel 3 Sensor Device See Rx Instructions .Route Qty: 2 5RF Rx Instructions: 1 sensor q 14 days gabapentin 600 mg tablet 600 mg PO BID acetaminophen [Tylenol Extra Strength] 500 mg tablet 1,000 mg PO BID PRN tizanidine 4 mg Capsule 4 mg PO QHS (DME) lancing device with lancets [Accu-Chek FastClix Lancing Dev] Kit See Rx Instructions .Route Qty: 1 0RF Rx Instructions: As directed (DME) blood-glucose meter [Accu-Chek Guide Glucose Meter] Misc See Rx Instructions .Route Qty: 1 0RF Rx Instructions: As directed (DME) Accu-Chek Guide test strips Strip See Rx Instructions .Route Qty: 150 6RF Rx Instructions: 4 times daily (DME) lancets [Accu-Chek Fastclix Lancet Drum] Misc See Rx Instructions .Route Qty: 200 3RF Rx Instructions: 4 times per day rosuvastatin 5 mg tablet 5 mg PO DAILY Qty: 90 3RF insulin lispro [Humalog KwikPen Insulin] 100 unit/mL insulin pen 15 unit subcut TID Qty: 40.5 1RF levothyroxine 150 mcg tablet 150 mcg PO DAILY Qty: 90 1RF (DME) pen needle, diabetic [BD Ultra-Fine Rin Pen Needle] 32 gauge x 5/32" needle See Rx Instructions .ROUTE .MEDSUPPLY Qty: 400 3RF Rx Instructions: 4 times daily cholecalciferol (vitamin D3) 50 mcg (2,000 unit) capsule 50 mcg PO QDAY Qty: 90 3RF losartan 50 mg tablet 50 mg PO QDAY Qty: 180 3RF carvedilol 25 mg tablet 12.5 mg PO BID Qty: 60 11RF Rx Instructions: must administer with a meal/food (DME) blood-glucose meter [True Metrix Glucose Meter] Misc See Rx Instructions .Route Qty: 1 0RF Rx Instructions: As directed (DME) True Metrix Glucose Test Strip Strip See Rx Instructions .Route Qty: 50 8RF Rx Instructions: daily as backup to CGM (DME) lancets [BD Microtainer Lancet] 30 gauge misc See Rx Instructions .Route Qty: 100 3RF Rx Instructions: daily hydrochlorothiazide 25 mg tablet 25 mg PO DAILY Qty: 90 3RF insulin glargine [Lantus Solostar U-100 Insulin] 100 unit/mL (3 mL) insulin pen 32 unit subcut QAM Qty: 30 1RF Primary Care Provider: Elmer Richards Referrals: Elmer Richards MD [Primary Care Provider] - As Needed Activity Restrictions/Additional Instructions: Recommend contacting your orthopedic surgeon regarding the Cullen's cyst. Your blood sugar was elevated to 2 and 55. Print Language: Emirati Disposition Disposition: Home, Self Care What to do if you have Problems For any increased pain, shortness of breath, bleeding, nausea or vomiting, chestpain, or any unexpected problems, contact your Primary Care Provider. Call [facility] ([phone]) or report to the closest Emergency Room. Call 911 if necessary. 10/09/24 8610 <Electronically signed by Marcello Doe MD> Cosigner Signature (if applicable): CC: Dr. Elmer Richards MD ~ [facility] Work Phone: Evaluation + Plan note No data available for this section [facility] evaluation + Plan note Future Appointments Appointment Date:06/16/2021 08:00:00 AM Scheduled Provider: Location:[facility] [place] Appointment Type:PM Inj Spine L/S With Imaging [facility] Evaluation + Plan note Future Appointments Appointment Date:11/14/2021 09:00:00 AM Scheduled Provider: Location:[facility] [place] Appointment Type:PM Inj Spine L/S With Imaging [facility] Evaluation + Plan note Future Appointments Appointment Date:01/03/2022 02:00:00 PM Scheduled Provider:CORNELL BURDICK APRN-ALISTAIR Location:PM Office Appointment Type:PM OV HEAVENLY AT Appointment Date:01/16/2022 07:00:00 AM Scheduled Provider: Location:[facility] [place] Appointment Type:PM Inj Spine L/S With Imaging [facility] Evaluation + Plan note Future Appointments Appointment Date:01/16/2022 07:00:00 AM Scheduled Provider: Location:[facility] [place] Appointment Type:PM Inj Spine L/S With Imaging [facility] Evaluation + Plan note Future Appointments Appointment Date:02/20/2022 11:30:00 AM Scheduled Provider:CORNELL BURDICK Location:PM Office Appointment Type:PM EILEEN BURDICK AT [facility] Evaluation + Plan note Future Appointments Appointment Date:03/09/2022 08:30:00 AM Scheduled Provider: Location:[facility] [place] Appointment Type:PM Inj Spine L/S With Imaging [facility] Evaluation + Plan note Future Appointments Appointment Date:04/18/2022 02:00:00 PM Scheduled Provider:CHRISTINA JENNINGS MD Location:PM Office Appointment Type:PM OV [facility] Evaluation + Plan note Future Appointments Appointment Date:04/18/2022 02:00:00 PM Scheduled Provider:CHRISTINA JENNINGS MD Location:PM Office Appointment Type:PM OV Diagnostic Tests Pending * SM and RESEARCH ARCHAEOLOGIST Antibody Panel 04/16/22 * SS-A and SS-B Antibody Panel 04/16/22 * Scleroderma IgG Ab 04/16/22 * DNA Antibody (Double-stranded) 04/16/22 * Antinuclear Antibody Screen, Serum 04/16/22 * Cyclic Citrullinated Peptide 04/16/22 * Rheumatoid Factor 04/16/22 * [facility] [place]Blood Specimens) 04/16/22 [place] Evaluation + Plan note Future Appointments Appointment Date:07/03/2022 12:30:00 PM Scheduled Provider:CHRISTINA JENNINGS MD Location:PM Office Appointment Type:PM OV [facility] Evaluation + Plan note Future Appointments Appointment Date:09/11/2022 07:00:00 AM Scheduled Provider:CHRISTINA JENNINGS MD Location:PM Office Appointment Type:PM OV [facility] Evaluation + Plan note Future Appointments Appointment Date:12/24/2022 11:30:00 AM Scheduled Provider:CORNELL BURDICK Location:PM Office Appointment Type:PM OV HEAVENLY AT Appointment Date:01/04/2023 09:40:00 AM Scheduled Provider: Location:[facility] [place] Appointment Type:PM Inj Spine L/S With Imaging [facility] Evaluation + Plan note Future Appointments Appointment Date:04/01/2023 06:30:00 AM Scheduled Provider: Location:[facility] [place] Appointment Type:PM Inj Spine L/S With Imaging [facility] Evaluation + Plan note Future Appointments Appointment Date:05/30/2023 08:50:00 AM Scheduled Provider:CHRISTINA JENNINGS MD Location:PM Office Appointment Type:PM OV [facility] Evaluation + Plan note Future Appointments Appointment Date:07/04/2023 06:30:00 AM Scheduled Provider:CHRISTINA JENNINGS MD Location:PM Office Appointment Type:PM OV Future Scheduled Tests Radiology* MRI Brain w/ + w/o Contrast 06/19/23 * MRI Spine Lumbar w/o Contrast 06/19/23 [place] Evaluation + Plan note Future Appointments Appointment Date:09/04/2023 09:10:00 AM Scheduled Provider:CHRISTINA JENNINGS MD Location:PM Office Appointment Type:PM OV Future Scheduled Tests Radiology* MRI Brain w/ + w/o Contrast 06/19/23 * MRI Spine Lumbar w/o Contrast 06/19/23 [facility] Pain Management Evaluation + Plan note Future Appointments Appointment Date:10/21/2023 12:50:00 PM Scheduled Provider: Location:Pain [facility] Appointment Type:PM Inj Spine L/S With Imaging Future Scheduled Tests Radiology* MRI Brain w/ + w/o Contrast 06/19/23 * MRI Spine Lumbar w/o Contrast 06/19/23 [facility] Pain [facility] Evaluation + Plan note Future Appointments Appointment Date:10/21/2023 12:50:00 PM Scheduled Provider: Location:[facility] [place] Appointment Type:PM Inj Spine L/S With Imaging Diagnostic Tests Pending * Circulating Anticoagulants - Panel 10/07/23 * Anticardiolipin Ab, IgA, Qn 10/07/23 * Anticardiolipin Ab, IgG, Qn 10/07/23 * Anticardiolipin Ab, IgM, Qn 10/07/23 * Beta-2 Glycoprotein I Ab,G/M 10/07/23 Future Scheduled Tests Radiology* MRI Brain w/ + w/o Contrast 06/19/23 * MRI Spine Lumbar w/o Contrast 06/19/23 [place] Evaluation + Plan note Future Appointments Appointment Date:12/02/2023 09:00:00 AM Scheduled Provider:IONA URRUTIA MD Location:PM Office Appointment Type:PM OV Future Scheduled Tests Radiology* MRI Brain w/ + w/o Contrast 06/19/23 * MRI Spine Lumbar w/o Contrast 06/19/23 [facility] Pain Management Evaluation + Plan note Future Appointments Appointment Date:12/18/2023 01:45:00 PM Scheduled Provider: Location:[facility] Appointment Type:PT Outpatient Evaluation Appointment Date:01/27/2024 12:30:00 PM Scheduled Provider:IONA URRUTIA MD Location:PM Office Appointment Type:PM OV Future Scheduled Tests Radiology* MRI Brain w/ + w/o Contrast 06/19/23 * MRI Spine Lumbar w/o Contrast 06/19/23 [facility] Pain [facility] Evaluation + Plan note Future Appointments Appointment Date:01/27/2024 12:30:00 PM Scheduled Provider:IONA URRUTIA MD Location:PM Office Appointment Type:PM OV Future Scheduled Tests Radiology* MRI Brain w/ + w/o Contrast 06/19/23 * MRI Spine Lumbar w/ + w/o Contrast 01/23/24 * MRI Spine Lumbar w/o Contrast 06/19/23 * XR Spine Lumbar AP/LAT/FLEX/EXT 01/23/24 [facility] Evaluation + Plan note Future Appointments Appointment Date:02/07/2024 10:15:00 AM Scheduled Provider: Location:[facility] Appointment Type:PT Outpatient Evaluation Appointment Date:02/21/2024 09:45:00 AM Scheduled Provider: Location:[facility] Appointment Type:MRI Spine Lumbar w/ + w/o Contrast Appointment Date:02/21/2024 10:30:00 AM Scheduled Provider: Location:[facility] Appointment Type:MRI Spine Thoracic w/ + w/o Contrast Appointment Date:02/24/2024 09:00:00 AM Scheduled Provider: Location:[facility] Appointment Type:MRI Brain w/ + w/o Contrast Appointment Date:02/24/2024 09:45:00 AM Scheduled Provider: Location:[facility] Appointment Type:MRI Spine Cervical w/ + w/o Contrast Appointment Date:02/26/2024 01:45:00 PM Scheduled Provider:TATO CARRANZA MD Location:[facility] Appointment Type:NS OV Diagnostic Tests Pending * Methylmalonic Acid, Serum 02/05/24 * Vitamin B1 (Thiamine), Blood 02/05/24 Future Scheduled Tests Radiology* MRI Brain w/ + w/o Contrast 06/19/23 * MRI Brain w/ + w/o Contrast 02/24/24 * MRI Spine Cervical w/ + w/o Contrast 01/30/24 * MRI Spine Cervical w/ + w/o Contrast 02/24/24 * MRI Spine Lumbar w/ + w/o Contrast 02/21/24 * MRI Spine Lumbar w/o Contrast 06/19/23 * MRI Spine Thoracic w/ + w/o Contrast 01/30/24 * MRI Spine Thoracic w/ + w/o Contrast 02/21/24 * XR Spine Lumbar AP/LAT/FLEX/EXT 01/23/24 [place] Evaluation + Plan note Future Appointments Appointment Date:02/24/2024 09:00:00 AM Scheduled Provider: Location:[facility] Appointment Type:MRI Brain w/ + w/o Contrast Appointment Date:02/24/2024 09:45:00 AM Scheduled Provider: Location:[facility] Appointment Type:MRI Spine Cervical w/ + w/o Contrast Appointment Date:02/25/2024 10:15:00 AM Scheduled Provider: Location:[facility] Appointment Type:PT [place] - [place] Appointment Date:02/26/2024 01:45:00 PM Scheduled Provider:TATO CARRANZA MD Location:[facility] Appointment Type:NS OV Appointment Date:02/28/2024 03:00:00 PM Scheduled Provider: Location:[facility] Appointment Type:PT Treatment - [place] Appointment Date:03/02/2024 11:50:00 AM Scheduled Provider:IONA URRUTIA MD Location:PM Office Appointment Type:PM OV Appointment Date:03/02/2024 01:30:00 PM Scheduled Provider: Location:[facility] Appointment Type:PT Treatment - [place] Appointment Date:03/04/2024 03:00:00 PM Scheduled Provider: Location:[facility] Appointment Type:PT [facility] Future Scheduled Tests Radiology* MRI Brain w/ + w/o Contrast 06/19/23 * MRI Brain w/ + w/o Contrast 02/24/24 * MRI Spine Cervical w/ + w/o Contrast 01/30/24 * MRI Spine Cervical w/ + w/o Contrast 02/24/24 * MRI Spine Lumbar w/o Contrast 06/19/23 * MRI Spine Thoracic w/ + w/o Contrast 01/30/24 [facility] evaluation + Plan note Future Appointments Appointment Date:02/25/2024 10:15:00 AM Scheduled Provider: Location:[facility] Appointment Type:[facility] Appointment Date:02/26/2024 01:45:00 PM Scheduled Provider:TATO CARRANZA MD Location:[facility] Appointment Type: OV Appointment Date:02/28/2024 03:00:00 PM Scheduled Provider: Location:[facility] Appointment Type:[facility] Appointment Date:03/02/2024 11:50:00 AM Scheduled Provider:IONA URRUTIA MD Location:PM Office Appointment Type:PM OV Appointment Date:03/02/2024 01:30:00 PM Scheduled Provider: Location:[facility] Appointment Type:[facility] Appointment Date:03/04/2024 03:00:00 PM Scheduled Provider: Location:[facility] Appointment Type:[facility] Scheduled Tests Radiology* MRI Brain w/ + w/o Contrast 06/19/23 * MRI Spine Cervical w/ + w/o Contrast 01/30/24 * MRI Spine Lumbar w/o Contrast 06/19/23 * MRI Spine Thoracic w/ + w/o Contrast 01/30/24 [facility] evaluation + Plan note Future Appointments Appointment Date:02/28/2024 03:00:00 PM Scheduled Provider: Location:[facility] Appointment Type:[facility] Appointment Date:03/02/2024 01:30:00 PM Scheduled Provider: Location:[facility] Appointment Type:[facility] Appointment Date:03/04/2024 03:00:00 PM Scheduled Provider: Location:[facility] Appointment Type:[facility] Future Scheduled Tests Radiology* MRI Brain w/ + w/o Contrast 06/19/23 * MRI Spine Cervical w/ + w/o Contrast 01/30/24 * MRI Spine Lumbar w/o Contrast 06/19/23 * MRI Spine Thoracic w/ + w/o Contrast 01/30/24 [facility] Evaluation note* Diagnosis Onset Date Resolution Status Depression chronic Diabetes chronic Hyperlipidemia chronic Hypothyroidism chronic Obesity chronic Vitamin D deficiency chronic History of permanent cardiac pacemaker placement Octob er 2020 acute Paroxysmal atrial fibrillation acute Coronary-myocardial bridge c hronic Essential (primary) hypertension chronic Hyperlipidemia [facility] Work Phone: Evaluation note* Diagnosis Onset Date Resolution Status Depression chronic Diabetes chronic Hyperlipidemia chronic Hypothyroidism chronic Obesity chronic Vitamin D deficiency chronic History of permanent cardiac pacemaker placement February 06, 2021 acute Paroxysmal atrial fibrillation acute Coronary-myocardial bridge c hronic Essential (primary) hypertension chronic Hyperlipidemia chronic Encounter for routine gyneco logical examination noneactive Heart block acute History of permanent cardiac pacemaker placement February 06, 2021 acute Mobitz type 2 second degree AV block acute Pacemaker lead malfunction a [facility] Work Phone: Evaluation note* Diagnosis Paroxysmal atrial fibrillation (HCC)- Primary [facility] Bradycardia- Primary Other specified cardiac dysrhythmias Atrioventricular block, second degree Other second degree atrioventricular block Mobitz type 2 second degree AV block Mobitz (type) II atrioventricular block Right bundle branch block (RBBB) with left anterior fascicular block (LAFB) Presence of cardiac pacemaker Cardiac pacemaker in situ Malfunction of electrode lead of cardiac pacemaker Palpitations Obesity, Class III, BMI >= 40 Morbid obesity [facility] Diagnosis Onset Date Resolution Status Numbness and tingling acute Diabetes chronic Essential (primary) hypertension chronic Hypothyroidism chronic Obesity chronic Vitamin D deficiency chronic History of permanent cardiac pacemaker placement Octob er 2020 acute Mobitz type 2 second degree AV block acute Nonsustained monomorphic ventricular tachycardia acute [facility] Paroxysmal atrial fibrillation acute History of permanent cardiac pacemaker placement Octob er 2020 acute Pacemaker lead malfunction a cute Paroxysmal atrial fibrillation acute Coronary-myocardial bridge c hronic Essential (primary) hypertension chronic Hyperlipidemia [facility] Work Phone: Evaluation note* Diagnosis Presence of cardiac pacemaker- Primary Cardiac pacemaker in situ Malfunction of cardiac pacemaker, subsequent encounter Rheumatoid arthritis, involving unspecified site, unspecified whether rheumatoid factor present (HCC) Systemic lupus erythematosus, unspecified SLE type, unspecified organ involvement status (HCC) Obesity, Class III, BMI >= 40 Morbid obesity Other fatigue Essential (primary) hypertension Unspecified essential hypertension Bradycardia Other specified cardiac dysrhythmias Atrioventricular block, second degree Other second degree atrioventricular block Mobitz type 2 second degree AV block Mobitz (type) II atrioventricular block Right bundle branch block (RBBB) with left anterior fascicular block (LAFB) Presence of cardiac pacemaker Cardiac pacemaker in situ Malfunction of electrode lead of cardiac pacemaker Bradycardia Other specified cardiac dysrhythmias [facility] Diagnosis Spinal stenosis, lumbar region with neurogenic claudication- Primary [facility]* Diagnosis Spinal stenosis, lumbar region with neurogenic claudication- Primary Preoperative clearance Preoperative examination, unspecified Pre-op testing Preoperative examination, unspecified documented in this encounter [facility] note* Diagnosis Shortness of breath documented in this encounter [facility] Work Phone: Evaluation note* Diagnosis Right knee pain, unspecified chronicity- Primary Spinal stenosis, lumbar region with neurogenic claudication [facility]* Diagnosis Right knee pain, unspecified chronicity Spinal stenosis, lumbar region with neurogenic claudication [facility]* Diagnosis Pre-op evaluation- Primary Preoperative examination, unspecified Difficult intravenous access Other specified conditions influencing health status PONV (postoperative nausea and vomiting) Nausea with vomiting Presence of cardiac pacemaker Cardiac pacemaker in situ Rheumatoid arthritis, involving unspecified site, unspecified whether rheumatoid factor present (HCC) 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 Essential (primary) hypertension Unspecified essential hypertension Former smoker Personal history of tobacco use, presenting hazards to health Anxiety Anxiety state, unspecified 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 Hyperlipidemia, unspecified hyperlipidemia type MS (multiple sclerosis) (HCC) Multiple sclerosis Obesity, Class III, BMI >= 40 Morbid obesity Systemic lupus erythematosus, unspecified SLE type, unspecified organ involvement status (HCC) Paroxysmal atrial fibrillation (HCC) Atrial fibrillation History of syncope Other specified personal history presenting hazards to health Spinal stenosis, lumbar region with neurogenic claudication * Assessment & Plan Note - Mae Lopez APRN.CNP - 07/27/2024 3:13 PM EDT Associated Problem(s): History of syncope Assessment: Patient was transferred via squad to [facility] ER 07/20/24 from an outpatient x-ray due to syncopal episode. Patient states ER decreased BP medications. Fax for records sent; patient states she had CT head and x-ray. EKG today shows atrial-paced rhythm. Anesthesia consulted for chart review and letter also sent to certified industrial hygienist for optimization. * Assessment & Plan Note - Mae Lopez APRN.CNP - 07/27/2024 3:10 PM EDT Associated Problem(s): Systemic lupus erythematosus (HCC) Assessment: No current treatment. Has chronic back/joint pain. * Assessment & Plan Note - Mae Lopez APRN.CNP - 07/27/2024 3:09 PM EDT Associated Problem(s): RA (rheumatoid arthritis) (HCC) Assessment: Chronic back/joint pain. Had steroid burst earlier this month for knee pain. On Percocet, diclofenac, gabapentin, Zanaflex. * Assessment & Plan Note - Mae Lopez APRN.CNP - 07/27/2024 3:08 PM EDT Associated Problem(s): Presence of cardiac pacemaker Assessment: PPM present, last interrogation on 09/12/23 reviewed. Follows with certified industrial hygienist, Dr. Liu, last OV 03/02/24. Type of device/Virology Teacher: [employer] [id number] [place] XT DR VANG Last interrogation: 09/12/23 Pacemaker dependency: Yes Surgical site: Lumbar spine Location of CIED generator in body: Chest Device rep needed: No * Assessment & Plan Note - Mae Lopez APRN.CNP - 07/27/2024 3:06 PM EDT Associated Problem(s): PONV (postoperative nausea and vomiting) Assessment: Potential issue, would likely benefit from premedication due to history of PONV in the past * Assessment & Plan Note - Mae Lopez APRN.CNP - 07/27/2024 3:06 PM EDT Associated Problem(s): Paroxysmal atrial fibrillation (HCC) Assessment: Hx PVCs and PAF. Follows with certified industrial hygienist Dr. Liu, last OV 03/02/24. Hx PPM, EKG in [facility] today shows atrial-paced rhythm with no extra beats. Controlled on carvedilol. * Assessment & Plan Note - Mae Lopez APRN.CNP - 07/27/2024 3:05 PM EDT Associated Problem(s): Obesity, Class III, BMI >= 40 Assessment: Body mass index is 47.52 kg/m . Procedure scheduled appropriately at hospital based OR at [place]. * Assessment & Plan Note - Mae Lopez APRN.CNP - 07/27/2024 3:05 PM EDT Associated Problem(s): MS (multiple sclerosis) (HCC) Assessment: Follows closely with neuro, on Vumerity BID. Had exacerbation in May 2024 which wastreated with 3 days of IV Solu-Medrol outpatient. 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 Assessment: Controlled on Synthroid, hx Marquita, follows with PCP, clinically euthyroid * Assessment & Plan Note - Mae Lopez APRN.CNP - 07/27/2024 3:03 PM EDT Associated Problem(s): Hyperlipidemia Assessment: Controlled on statin and fish oil, follows with PCP/cardiology * Assessment & Plan Note - Mae Lopez APRN.CNP - 07/27/2024 3:03 PM EDT Associated Problem(s): Former smoker Assessment: Former smoker, quit 2001 * Assessment & Plan Note - Mae Lopez APRN.CNP - 07/27/2024 3:03 PM EDT Associated Problem(s): Essential (primary) hypertension Assessment: BP 125/64 in [facility] office, follows with PCP/cardiology Controlled on carvedilol, HCTZ, losartan Last 3 Encounter BP Readings: Date: BP: 07/27/2024 125/64 09/11/2023 125/70 09/05/2023 113/81 * Assessment & Plan Note - Mae Lopez APRN.CNP - 07/27/2024 3:02 PM EDT Associated Problem(s): Difficult intravenous access Assessment: Potential issue, has required ultrasound guidance * Assessment & Plan Note - Mae Lopez APRN.CNP - 07/27/2024 3:01 PM EDT Associated Problem(s): Coronary-myocardial bridge Assessment: Follows with certified industrial hygienist Dr. Liu, last OV 03/02/24. Letter faxed for optimization/cardiology records. Denies CP or palpitations; has baseline exertional dyspnea. * Assessment & Plan Note - Mae Lopez APRN.CNP - 07/27/2024 2:59 PM EDT Associated Problem(s): Anxiety Assessment: Mood stable on sertraline, follows with PCP [facility]* Diagnosis Pre-op evaluation- Primary Preoperative examination, unspecified Difficult intravenous access Other specified conditions influencing health status PONV (postoperative nausea and vomiting) Nausea with vomiting Presence of cardiac pacemaker Cardiac pacemaker in situ Rheumatoid arthritis, involving unspecified site, unspecified whether rheumatoid factor present (HCC) 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 Essential (primary) hypertension Unspecified essential hypertension Former smoker Personal history of tobacco use, presenting hazards to health Anxiety Anxiety state, unspecified 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 Hyperlipidemia, unspecified hyperlipidemia type MS (multiple sclerosis) (HCC) Multiple sclerosis Obesity, Class III, BMI >= 40 Morbid obesity Systemic lupus erythematosus, unspecified SLE type, unspecified organ involvement status (HCC) Paroxysmal atrial fibrillation (HCC) Atrial fibrillation History of syncope Other specified personal history presenting hazards to health Spinal stenosis, lumbar region with neurogenic claudication- Primary [facility]* Diagnosis Pre-op evaluation- Primary Preoperative examination, unspecified Difficult intravenous access Other specified conditions influencing health status PONV (postoperative nausea and vomiting) Nausea with vomiting Presence of cardiac pacemaker Cardiac pacemaker in situ Rheumatoid arthritis, involving unspecified site, unspecified whether rheumatoid factor present (HCC) 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 Essential (primary) hypertension Unspecified essential hypertension Former smoker Personal history of tobacco use, presenting hazards to health Anxiety Anxiety state, unspecified 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 Hyperlipidemia, unspecified hyperlipidemia type MS (multiple sclerosis) (HCC) Multiple sclerosis Obesity, Class III, BMI >= 40 Morbid obesity Systemic lupus erythematosus, unspecified SLE type, unspecified organ involvement status (HCC) Paroxysmal atrial fibrillation (HCC) Atrial fibrillation History of syncope Other specified personal history presenting hazards to health Spinal stenosis, lumbar region with neurogenic claudication documented in this encounter [facility] note* Diagnosis Pre-op evaluation- Primary Preoperative examination, unspecified Difficult intravenous access Other specified conditions influencing health status PONV (postoperative nausea and vomiting) Nausea with vomiting Presence of cardiac pacemaker Cardiac pacemaker in situ Rheumatoid arthritis, involving unspecified site, unspecified whether rheumatoid factor present (HCC) 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 Essential (primary) hypertension Unspecified essential hypertension Former smoker Personal history of tobacco use, presenting hazards to health Anxiety Anxiety state, unspecified 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 Hyperlipidemia, unspecified hyperlipidemia type MS (multiple sclerosis) (HCC) Multiple sclerosis Obesity, Class III, BMI >= 40 Morbid obesity Systemic lupus erythematosus, unspecified SLE type, unspecified organ involvement status (HCC) Paroxysmal atrial fibrillation (HCC) Atrial fibrillation History of syncope Other specified personal history presenting hazards to health Primary osteoarthritis of right knee- Primary Primary localized osteoarthrosis, lower leg documented in this encounter [facility] note* Diagnosis Pre-op evaluation- Primary Preoperative examination, unspecified Difficult intravenous access Other specified conditions influencing health status PONV (postoperative nausea and vomiting) Nausea with vomiting Presence of cardiac pacemaker Cardiac pacemaker in situ Rheumatoid arthritis, involving unspecified site, unspecified whether rheumatoid factor present (HCC) 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 Essential (primary) hypertension Unspecified essential hypertension Former smoker Personal history of tobacco use, presenting hazards to health Anxiety Anxiety state, unspecified 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 Hyperlipidemia, unspecified hyperlipidemia type MS (multiple sclerosis) (HCC) Multiple sclerosis Obesity, Class III, BMI >= 40 Morbid obesity Systemic lupus erythematosus, unspecified SLE type, unspecified organ involvement status (HCC) Paroxysmal atrial fibrillation (HCC) Atrial fibrillation History of syncope Other specified personal history presenting hazards to health Spinal stenosis, lumbar region with neurogenic claudication documented in this encounter [facility] note* Diagnosis Pre-op evaluation- Primary Preoperative examination, unspecified Difficult intravenous access Other specified conditions influencing health status PONV (postoperative nausea and vomiting) Nausea with vomiting Presence of cardiac pacemaker Cardiac pacemaker in situ Rheumatoid arthritis, involving unspecified site, unspecified whether rheumatoid factor present (HCC) 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 Essential (primary) hypertension Unspecified essential hypertension Former smoker Personal history of tobacco use, presenting hazards to health Anxiety Anxiety state, unspecified 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 Hyperlipidemia, unspecified hyperlipidemia type MS (multiple sclerosis) (HCC) Multiple sclerosis Obesity, Class III, BMI >= 40 Morbid obesity Systemic lupus erythematosus, unspecified SLE type, unspecified organ involvement status (HCC) Paroxysmal atrial fibrillation (HCC) Atrial fibrillation History of syncope Other specified personal history presenting hazards to health Post laminectomy syndrome- Primary Postlaminectomy syndrome, unspecified region Status post lumbar spine operative procedure for decompression of spinal cord Pain disorder associated with psychological and physical factors Other pain disorders related to psychological factors Radiculopathy, lumbar region Thoracic or lumbosacral neuritis or radiculitis, unspecified MS (multiple sclerosis) ([facility]) Multiple sclerosis S/P cardiac pacemaker procedure Cardiac pacemaker in situ Presence of cardiac pacemaker Cardiac pacemaker in situ Obesity, Class III, BMI >= 40 Morbid obesity documented in this encounter [facility] note* Diagnosis Pre-op evaluation- Primary Preoperative examination, unspecified Difficult intravenous access Other specified conditions influencing health status PONV (postoperative nausea and vomiting) Nausea with vomiting Presence of cardiac pacemaker Cardiac pacemaker in situ Rheumatoid arthritis, involving unspecified site, unspecified whether rheumatoid factor present (HCC) 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 Essential (primary) hypertension Unspecified essential hypertension Former smoker Personal history of tobacco use, presenting hazards to health Anxiety Anxiety state, unspecified 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 Hyperlipidemia, unspecified hyperlipidemia type MS (multiple sclerosis) (HCC) Multiple sclerosis Obesity, Class III, BMI >= 40 Morbid obesity Systemic lupus erythematosus, unspecified SLE type, unspecified organ involvement status ([facility]) Paroxysmal atrial fibrillation (HCC) Atrial fibrillation History of syncope Other specified personal history presenting hazards to health Primary osteoarthritis of right knee- Primary Primary localized osteoarthrosis, lower leg BMI 45.0-49.9, adult ([facility]) Body Mass Index 45.0-49.9, adult documented in this encounter [facility] note* Diagnosis Pre-op evaluation- Primary Preoperative examination, unspecified Difficult intravenous access Other specified conditions influencing health status PONV (postoperative nausea and vomiting) Nausea with vomiting Presence of cardiac pacemaker Cardiac pacemaker in situ Rheumatoid arthritis, involving unspecified site, unspecified whether rheumatoid factor present (HCC) 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 Essential (primary) hypertension Unspecified essential hypertension Former smoker Personal history of tobacco use, presenting hazards to health Anxiety Anxiety state, unspecified 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 Hyperlipidemia, unspecified hyperlipidemia type MS (multiple sclerosis) (HCC) Multiple sclerosis Obesity, Class III, BMI >= 40 Morbid obesity Systemic lupus erythematosus, unspecified SLE type, unspecified organ involvement status (HCC) Paroxysmal atrial fibrillation (HCC) Atrial fibrillation History of syncope Other specified personal history presenting hazards to health Pain in joint, multiple sites- Primary Vitamin D deficiency Unspecified vitamin D deficiency ROBBI positive Other and unspecified nonspecific immunological findings Elevated rheumatoid factor Other and unspecified nonspecific immunological findings Fibromyalgia Mylagia and myositis, unspecified Malaise and fatigue Other malaise and fatigue Multiple sclerosis (HCC) Multiple sclerosis Primary osteoarthritis of right knee Primary localized osteoarthrosis, lower leg Presence of cardiac pacemaker Cardiac pacemaker in situ Dry eye syndrome of both eyes Raynaud's disease without gangrene [facility] Diagnosis Pre-op evaluation- Primary Preoperative examination, unspecified Difficult intravenous access Other specified conditions influencing health status PONV (postoperative nausea and vomiting) Nausea with vomiting Presence of cardiac pacemaker Cardiac pacemaker in situ Rheumatoid arthritis, involving unspecified site, unspecified whether rheumatoid factor present (HCC) 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 Essential (primary) hypertension Unspecified essential hypertension Former smoker Personal history of tobacco use, presenting hazards to health Anxiety Anxiety state, unspecified 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 Hyperlipidemia, unspecified hyperlipidemia type MS (multiple sclerosis) (HCC) Multiple sclerosis Obesity, Class III, BMI >= 40 Morbid obesity Systemic lupus erythematosus, unspecified SLE type, unspecified organ involvement status (HCC) Paroxysmal atrial fibrillation (HCC) Atrial fibrillation History of syncope Other specified personal history presenting hazards to health Pain in joint, multiple sites [facility]* Diagnosis Pre-op evaluation- Primary Preoperative examination, unspecified Difficult intravenous access Other specified conditions influencing health status PONV (postoperative nausea and vomiting) Nausea with vomiting Presence of cardiac pacemaker Cardiac pacemaker in situ Rheumatoid arthritis, involving unspecified site, unspecified whether rheumatoid factor present (HCC) 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 Essential (primary) hypertension Unspecified essential hypertension Former smoker Personal history of tobacco use, presenting hazards to health Anxiety Anxiety state, unspecified 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 Hyperlipidemia, unspecified hyperlipidemia type MS (multiple sclerosis) (HCC) Multiple sclerosis Obesity, Class III, BMI >= 40 Morbid obesity Systemic lupus erythematosus, unspecified SLE type, unspecified organ involvement status (HCC) Paroxysmal atrial fibrillation (HCC) Atrial fibrillation History of syncope Other specified personal history presenting hazards to health Primary osteoarthritis of right knee- Primary Primary localized osteoarthrosis, lower leg documented in this encounter [facility] note* Diagnosis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 [address] [place] [address]- Name: Edin Betancourt Technology Adoption Manager Mara L Position: P3 Scheduling - Technology Adoption Manager Advanced Member Role: Other Care Team Related Persons Name: TYSON LANDRY Address: Home [address] [place], [place] [id number] [place] Care Team Personnel Name: Rema Christiansen Painter Barrel Position: P3 Scheduling - Technology Adoption Manager Advanced Member Role: Other Name: ELMER RICHARDS MD Member Role: Primary Care Physician Address: Address: [place] [address] Name: Edin Betancourt Technology Adoption Manager Mara Riki Position: P3 Scheduling - Technology Adoption Manager Advanced Member Role: Other Care Team Related Persons Name: TYSON LANDRY Address: Home [address] [place], [place] [id number] [place] Care Team Personnel Name: Rema Christiansen Painter Barrel Position: P3 Scheduling - Technology Adoption Manager Advanced Member Role: Other Name: ELMER RICHARDS MD Member Role: Primary Care Physician Address: Address: [place] [address] Name: Edin Betancourt Technology Adoption Manager Mara L Position: P3 Scheduling - Technology Adoption Manager Advanced Member Role: Other Care Team Related Persons Name: TYSON LANDRY Address: Home [address] [place], [place] [id number] [place] Care Team Personnel Name: Rema Christiansen Painter Barrel Position: P3 Scheduling - Technology Adoption Manager Advanced Member Role: Other Name: ELMER RICHARDS MD Member Role: Primary Care Physician Address: Address: [facility] [address] [place] [id number]- Name: Edin Betancourt Technology Adoption Manager Mara L Position: P3 Scheduling - Technology Adoption Manager Advanced Member Role: Other Care Team Related Persons Name: TYSON LANDRY Address: Home [address] [place], [place] [phone] Care Team Personnel Name: Rema Christiansen Painter Barrel Position: P3 Scheduling - Technology Adoption Manager Advanced Member Role: Other Name: ELMER RICHARDS MD Member Role: Primary Care Physician Address: Address: [facility] [address] [place] [address]- Care Team Related Persons Name: TYSON LANDRY Address: Home [address] [place], [place] [phone] Goals (unrecognized section and content) Goals may be documented in a n alternate section Patient Care team informatio n (unrecognized section and content) Team Status: Active Member Role Status Dates Dr. Elmer Richards MD Family Provider Active Dr. Elmer Richards MD Primary Care Provider Active Team Status: Inactive Member Role Status Dates Dr. Elmer Richards MD Primary Care Provider, Referring P rovider Active Jami Lopez Attending Provider Active Team Status: Inactive Member Role Status Dates Dr. Elmer Richards MD Primary Care Provide r, Attending Provider, Referring Provider Active Team Status: Inactive Member Role Status Dates Dr. Elmer Richards MD Primary Care Provider, Referring P rovider Active Jami Lopez Active Dr. Michael Liu MD Attending Provider Active Team Status: Inactive Member Role Status Dates Dr. Elmer Richards MD Referring Provider Active Josey Lynn NP-Kaitlyn Attending Provider Active Team Status: Inactive Member Role Status Dates Dr. Elmer Richards MD Primary Care Provider Active MIGUEL Moy Attending Provider, Referring Pr ovider Active Dr. Ivan Severino MD Other Provider Active Dr. Bryant Segura DO Other Provider Active Team Status: Inactive Member Role Status Dates Dr. Elmer Richards MD Primary Care Provider, Referring P rovider Active Dr. Michael Liu MD Active Milvia Negron PA, PA Attending Provider Active Team Status: Inactive Member Role Status Dates Dr. Elmer Richards MD Primary Care Provider Active LAUREN MESSER Attending Provider, Referring Pr ovider Active Team Status: Inactive Member Role Status Dates Dr. Elmer Richards MD Primary Care Provider, Referring P rovider Active Dr. Deidre Stanley DO Attending Provider Activ e Team Status: Inactive Member Role Status Dates Dr. Elmer Richards MD Primary Care Provider Active Dr. Elias Lay MD Attending Provider, Refmoon choeing Provider Active Music Engineer Relationship Specialty Start Date End Date Elmer Richards MD PCP - General Family Medicine 07/01/14 Sushil Galvan [facility] [place] [address] Referring Neurology 03/14/17 Music Engineer Relationship Specialty Start Date End Date Elmer Richards MD PCP - General Family Medicine 07/01/14 Sushil Galvan [address] [place] [phone] Referring Neurology 03/14/17 Music Engineer Relationship Specialty Start Date End Date Elmer Richards MD PCP - General Family Medicine 07/01/14 Sushil Galvan [address] [place] [phone] Referring Neurology 03/14/17 Music Engineer Relationship Specialty Start Date End Date Elmer Richards MD PCP - General Family Medicine 07/01/14 Sushil Galvan [address] [place] [phone] Referring Neurology 03/14/17 Michael Liu MD [address] [facility] [place] [address] Cardiology 04/01/23 Music Engineer Relationship Specialty Start Date End Date Elmer Richards MD PCP - General Family Medicine 07/01/14 Sushil Galvan [address] [place] [phone] Referring Neurology 03/14/17 Michael Liu MD [address] [place] [phone] Cardiology 04/01/23 Music Engineer Relationship Specialty Start Date End Date Elmer Richards MD PCP - General Family Medicine 07/01/14 Sushil Galvan [address] [place] [phone] Referring Neurology 03/14/17 Michael Liu MD [address] [facility] [place] [address] Cardiology 04/01/23 Music Engineer Relationship Specialty Start Date End Date Elmer Richards MD PCP - General Family Medicine 07/01/14 07/17/23 Elmer Richards MD [address] [place], [place] [phone] PCP - General Family Medicine 07/18/23 Sushil Galvan [address] [place] [address] Referring Neurology 03/14/17 Michael Liu MD [address] [place] [address] Cardiology 04/01/23 Group, [place] [facility] [address] [place] [address] Specialty Title 1 Tutor Cardiology 07/18/23 Music Engineer Relationship Specialty Start Date End Date Elmer Richards MD [address] [place] [address] PCP - General Family Medicine 07/18/23 Sushil Galvan [facility] [place] [address] Referring Neurology 03/14/17 Michael Liu MD [address] [facility] [place] [address] Cardiology 04/01/23 Group, [place] [facility] [address] [place] [address] Specialty Title 1 Tutor Cardiology 07/18/23 Music Engineer Relationship Specialty Start Date End Date Elmer Richards MD [address] [place] [address] PCP - General Family Medicine 07/18/23 Sushil Galvan [address] [place] [address] Referring Neurology 03/14/17 Michael Liu MD [address] [place] [phone] Cardiology 04/01/23 Group, [place] [facility] [address] [place], [place] [id number] Specialty Title 1 Tutor Cardiology 07/18/23 Team Status: Inactive Member Role Status Dates Dr. Elmer Richards MD Primary Care Provider Active Dr. Michael Liu MD Attending Provider Active Team Status: Inactive Member Role Status Dates Dr. Elmer Richards MD Primary Care Provider, Referring P rovider Active Josey Lynn TUNGSTEN TENDER-C Attending Provider Active Team Status: Inactive Member Role Status Dates Dr. Elmer Richards MD Primary Care Provider, Referring P rovider Active Milvia WAGNER, PA Attending Provider Active Team Status: Active Member Role Status Dates Dr. Elmer Richards MD Primary Care Provider Active Dr. Michael Liu MD Attending Provider Active Team Status: Inactive Member Role Status Dates Dr. Elmer Richards MD Primary Care Provider Active Milvia WAGNER, PA Attending Provider, Referr ing Provider Active Music Engineer Relationship Specialty Start Date End Date Elmer Richards MD [address] [place], [place] [phone] PCP - General Family Medicine 07/18/23 Sushil Galvan [address] [place] [phone] Referring Neurology 03/14/17 Michael Liu MD [address] [place] [address] Cardiology 04/01/23 Group, [place] [facility] [address] [place] [address] Specialty Title 1 Tutor Cardiology 07/18/23 Music Engineer Relationship Specialty Start Date End Date Elmer Richards MD [address] [facility] [address] [place] [address] PCP - General Family Medicine 07/18/23 Sushil Galvan [address] [place] [phone] Referring Neurology 03/14/17 Michael Liu MD [address] [place] [address] Cardiology 04/01/23 Group, [place] [facility] [address] [place] [address] Specialty Title 1 Tutor Cardiology 07/18/23 Music Engineer Relationship Specialty Start Date End Date Elmer Richards MD [address] [facility] [address] [place] [address] PCP - General Family Medicine 07/18/23 Michael Liu MD [address] [place] [address] Cardiology 04/01/23 Group, [place] [facility] [address] [place] [address] Specialty Title 1 Tutor Cardiology 07/18/23 Ivan Severino MD [address] [id number] Specialty Title 1 Tutor Neurology 09/11/23 Music Engineer Relationship Specialty Start Date End Date Elmer Richards MD [address] [place] [address] PCP - General Family Medicine 07/18/23 Michael Liu MD [address] [place] [address] Cardiology 04/01/23 Group, [place] [facility] [address] [place] [address] Specialty Title 1 Tutor Cardiology 07/18/23 Ivan Severino MD [address] [facility] [address] [place] [address] Specialty Title 1 Tutor Neurology 09/11/23 Music Engineer Relationship Specialty Start Date End Date Elmer Richards MD [address] [place] [address] PCP - General Family Medicine 07/18/23 Michael Liu MD [address] [place] [address] Cardiology 04/01/23 Group, [place] [facility] [address] [place] [address] Specialty Title 1 Tutor Cardiology 07/18/23 Ivan Severino MD [address] [facility] [address] [place] [address] Specialty Title 1 Tutor Neurology 09/11/23 Music Engineer Relationship Specialty Start Date End Date Elmer Richards MD [address] [place] [address] PCP - General Family Medicine 07/18/23 Michael Liu MD [address] [place] [address] Cardiology 04/01/23 Group, [place] [facility] [address] [place] [address] Specialty Title 1 Tutor Cardiology 07/18/23 Ivan Severino MD [address] [facility] [address] [place] [address] Specialty Title 1 Tutor Neurology 09/11/23 Music Engineer Relationship Specialty Start Date End Date Elmer Richards MD [address] [place] [address] PCP - General Family Medicine 07/18/23 Michael Liu MD [address] [place] [address] Cardiology 04/01/23 Group, [place] [facility] [address] [place] [address] Specialty Title 1 Tutor Cardiology 07/18/23 Ivan Severino MD [address] [facility] [address] [place] [address] Specialty Title 1 Tutor Neurology 09/11/23 Music Engineer Relationship Specialty Start Date End Date Elmer Richards MD [address] [place] [address] PCP - General Family Medicine 07/18/23 Michael Liu MD [address] [facility] [address] Cardiology 04/01/23 Group, [place] [facility] [address] [place] [address] Specialty Title 1 Tutor Cardiology 07/18/23 Ivan Severino MD [address] [facility] [address] [place] [address] Specialty Title 1 Tutor Neurology 09/11/23 Music Engineer Relationship Specialty Start Date End Date Elmer Richards MD [address] [place] [address] PCP - General Family Medicine 07/18/23 Michael Liu MD [address] [place] [address] Cardiology 04/01/23 Group, [place] [facility] [address] [place] [address] Specialty Title 1 Tutor Cardiology 07/18/23 Ivna Severino MD [address] [address] Specialty Title 1 Tutor Neurology 09/11/23 Music Engineer Relationship Specialty Start Date End Date Elmer Richards MD [address] [place] [address] PCP - General Family Medicine 07/18/23 Michael Liu MD [address] [place] [address] Cardiology 04/01/23 Group, [place] [facility] [address] [place] [address] Specialty Title 1 Tutor Cardiology 07/18/23 Ivan Severino MD [address] [facility] [address] [place] [address] Specialty Title 1 Tutor Neurology 09/11/23 Music Engineer Relationship Specialty Start Date End Date Elmer Richards MD [address] [place] [address] PCP - General Family Medicine 07/18/23 Michael Liu MD [address] [place] [address] Cardiology 04/01/23 Group, [place] [facility] [address] [facility] [address] [place] [address] Specialty Title 1 Tutor Cardiology 07/18/23 Ivan Severino MD [address] [facility] [address] [place] [address] Specialty Title 1 Tutor Neurology 09/11/23 Music Engineer Relationship Specialty Start Date End Date Elmer Richards MD [address] [facility] [address] [place] [address] PCP - General Family Medicine 07/18/23 Michael Liu MD [address] [facility] [place] [address] Cardiology 04/01/23 Group, [place] [facility] [address] [facility] [address] [place] [address] Specialty Title 1 Tutor Cardiology 07/18/23 Ivan Severino MD [address] [facility] [address] [place] [address] Specialty Title 1 Tutor Neurology 09/11/23 Music Engineer Relationship Specialty Start Date End Date Elmer Richards MD [address] [place] [address] PCP - General Family Medicine 07/18/23 Michael Liu MD [address] [place] [address] Cardiology 04/01/23 Group, [place] [facility] [address] [place] [address] Specialty Title 1 Tutor Cardiology 07/18/23 Ivan Severino MD [address] [address] Specialty Title 1 Tutor Neurology 09/11/23 Music Engineer Relationship Specialty Start Date End Date Elmer Richards MD [address] [facility] [address] [place] [address] PCP - General Family Medicine 07/18/23 Michael Liu MD [address] [place] [address] Cardiology 04/01/23 Group, [place] [facility] [address] [facility] [address] [place] [address] Specialty Title 1 Tutor Cardiology 07/18/23 Ivan Severino MD [address] [facility] [address] [place] [address] Specialty Title 1 Tutor Neurology 09/11/23 Music Engineer Relationship Specialty Start Date End Date Elmer Richards MD [address] [facility] [address] [place] [address] PCP - General Family Medicine 07/18/23 Michael Liu MD [address] [place] [address] Cardiology 04/01/23 Group, [place] [facility] [address] [place] [address] Specialty Title 1 Tutor Cardiology 07/18/23 Ivan Severino MD [address] [facility] [address] [place] [address] Specialty Title 1 Tutor Neurology 09/11/23 Music Engineer Relationship Specialty Start Date End Date Elmer Richards MD [address] [place] [address] PCP - General Family Medicine 07/18/23 Michael Liu MD [address] [place] [address] Cardiology 04/01/23 Group, [place] [facility] [address] [place] [address] Specialty Title 1 Tutor Cardiology 07/18/23 Ivan Severino MD [address] [facility] [address] [place] [address] Specialty Title 1 Tutor Neurology 09/11/23 Music Engineer Relationship Specialty Start Date End Date Elmer Richards MD [address] [place] [address] PCP - General Family Medicine 07/18/23 Michael Liu MD [address] [place] [address] Cardiology 04/01/23 Group, [place] [facility] [address] [place] [address] Specialty Title 1 Tutor Cardiology 07/18/23 Ivan Severino MD [address] [place] [address] Specialty Title 1 Tutor Neurology 09/11/23 Music Engineer Relationship Specialty Start Date End Date Elmer Richards MD [address] [place] [address] PCP - General Family Medicine 07/18/23 Michael Liu MD [address] [place] [address] Cardiology 04/01/23 Group, [place] [facility] [address] [place] [address] Specialty Title 1 Tutor Cardiology 07/18/23 Ivan Severino MD [address] [place] [address] Specialty Title 1 Tutor Neurology 09/11/23 Music Engineer Relationship Specialty Start Date End Date Elmer Richards MD [address] [place] [address] PCP - General Family Medicine 07/18/23 Michael Liu MD [address] [place] [address] Cardiology 04/01/23 Group, [place] [facility] [address] [place] [address] Specialty Title 1 Tutor Cardiology 07/18/23 Ivan Severino MD [address] [place] [address] Specialty Title 1 Tutor Neurology 09/11/23 Music Engineer Relationship Specialty Start Date End Date Elmer Richards MD [address] [place] [address] PCP - General Family Medicine 07/18/23 Michael Liu MD [address] [place] [address] Cardiology 04/01/23 Group, [place] [facility] [address] [place] [address] Specialty Title 1 Tutor Cardiology 07/18/23 Ivan Severino MD [address] [facility] [address] [place] [address] Specialty Title 1 Tutor Neurology 09/11/23 Music Engineer Relationship Specialty Start Date End Date Elmer Richards MD [address] [place] [address] PCP - General Family Medicine 07/18/23 Michael Liu MD [address] [place] [address] Cardiology 04/01/23 Group, [place] [facility] [address] [place] [address] Specialty Title 1 Tutor Cardiology 07/18/23 Ivan Severino MD [address] [facility] [address] [place] [address] Specialty Title 1 Tutor Neurology 09/11/23 Music Engineer Relationship Specialty Start Date End Date Elmer Richards MD [address] [facility] [place] [address] PCP - General Family Medicine 07/18/23 Michael Liu MD [address] [place] [address] Cardiology 04/01/23 Group, [place] [facility] [address] [place] [address] Specialty Title 1 Tutor Cardiology 07/18/23 Ivan Severino MD [address] [facility] [address] [place] [address] Specialty Title 1 Tutor Neurology 09/11/23 Music Engineer Relationship Specialty Start Date End Date Elmer Richards MD [address] [place] [address] PCP - General Family Medicine 07/18/23 Michael Liu MD [address] [place] [address] Cardiology 04/01/23 Group, [place] [facility] [address] [place] [address] Specialty Title 1 Tutor Cardiology 07/18/23 Ivan Severino MD [address] [facility] [address] [place] [address] Specialty Title 1 Tutor Neurology 09/11/23 Team Status: Active Member Role Status Dates Dr. Elmer Richards MD Primary Care Provider Active Team Status: Inactive Member Role Status Dates Dr. Elmer Richards MD Primary Care Provider Active Start: June 13, 2024 End: June 13, 2024 Dr. Michael Liu MD Attending Provider Active S tart: June 13, 2024 End: June 13, 2024 Team Status: Inactive Member Role Status Dates Dr. Elmer Richards MD Primary Care Provider Active Start: August 06, 2024 End: August 06, 2024 Dr. Elmer Richards MD Referring Provider Active St art: August 06, 2024 End: August 06, 2024 Giovanni Ji TUNGSTEN TENDER, TUNGSTEN TENDER-C Attending Provider Active S tart: August 06, 2024 End: August 06, 2024 Team Status: Inactive Member Role Status Dates Dr. Elmer Richards MD Primary Care Provider Active Start: August 31, 2024 End: August 31, 2024 Dr. Elmer Richards MD Attending Provider Active St art: August 31, 2024 End: August 31, 2024 Dr. Elmer Richards MD Referring Provider Active St art: August 31, 2024 End: August 31, 2024 Team Status: Inactive Member Role Status Dates Dr. Elmer Richards MD Primary Care Provider Active Start: September 11, 2024 End: September 11, 2024 Dr. Michael Liu MD Attending Provider Active S tart: September 11, 2024 End: September 11, 2024 Music Engineer Relationship Specialty Start Date End Date Elmer Richards MD [address] [place] [address] PCP - General Family Medicine 07/18/23 Michael Liu MD [address] [place] [address] Cardiology 04/01/23 Group, [place] [facility] [address] [facility] [address] [place] [address] Specialty Title 1 Tutor Cardiology 07/18/23 Ivan Severino MD [address] [facility] [address] [place] [address] Specialty Title 1 Tutor Neurology 09/11/23 Music Engineer Relationship Specialty Start Date End Date Elmer Richards MD [address] [facility] [address] [place], [place] [address] PCP - General Family Medicine 07/18/23 Michael Liu MD [address] [place] [address] Cardiology 04/01/23 Group, [place] [facility] [address] [place] [address] Specialty Title 1 Tutor Cardiology 07/18/23 Ivan Severino MD [address] [facility] [address] [place] [address] Specialty Title 1 Tutor Neurology 09/11/23 Music Engineer Relationship Specialty Start Date End Date Elmer Richards MD [address] [place] [address] PCP - General Family Medicine 07/18/23 Michael Liu MD [address] [facility] [place] [address] Cardiology 04/01/23 Group, [place] [facility] [address] [facility] [address] [place] [address] Specialty Title 1 Tutor Cardiology 07/18/23 Ivan Severino MD [address] [address] Specialty Title 1 Tutor Neurology 09/11/23 Team Status: Inactive Member Role Status Dates Dr. Elmer Richards MD Primary Care Provider Active Start: October 09, 2024 End: October 09, 2024 Dr. Marcello Doe MD Emergency Provider Active Sta rt: October 09, 2024 End: October 09, 2024 Music Engineer Relationship Specialty Start Date End Date Elmer Richards MD [address] [facility] [address] [place] [address] PCP - General Family Medicine 07/18/23 Michael Liu MD [address] [facility] [place] [address] Cardiology 04/01/23 Group, [place] [facility] [address] [place] [address] Specialty Title 1 Tutor Cardiology 07/18/23 Ivan Severino MD [address] [facility] [address] [place] [address] Specialty Title 1 Tutor Neurology 09/11/23 Dyana Moran MD [address] [place] [address] Internal Medicine 10/09/24 Music Engineer Relationship Specialty Start Date End Date Elmer Richards MD [address] [place] [address] PCP - General Family Medicine 07/18/23 Michael Liu MD [address] [place] [address] Cardiology 04/01/23 Group, [place] [facility] [address] [place] [address] Specialty Title 1 Tutor Cardiology 07/18/23 Ivan Severino MD [address] [facility] [address] [place] [address] Specialty Title 1 Tutor Neurology 09/11/23 Dyana Moran MD [address] [place] [address] Internal Medicine 10/09/24 Music Engineer Relationship Specialty Start Date End Date Elmer Richards MD [address] [place] [address] PCP - General Family Medicine 07/18/23 Michael Liu MD [address] [place] [address] Cardiology 04/01/23 Group, [place] [facility] [address] [place] [address] Specialty Title 1 Tutor Cardiology 07/18/23 Ivan Severino MD [address] [place] [address] Specialty Title 1 Tutor Neurology 09/11/23 Dyana Moran MD [address] [place], [place] [address] Internal Medicine 10/09/24 Music Engineer Relationship Specialty Start Date End Date Elmer Richards MD [address] [place] [address] PCP - General Family Medicine 07/18/23 Michael Liu MD [address] [facility] [place] [address] Cardiology 04/01/23 Group, [facility] [address] [place] [address] Specialty Title 1 Tutor Cardiology 07/18/23 Ivan Severino MD [address] [facility] [address] [place] [address] Specialty Title 1 Tutor Neurology 09/11/23 Dyana Moran MD [address] [place], [place] [address] Internal Medicine 10/09/24 Music Engineer Relationship Specialty Start Date End Date Elmer Richards MD [address] [place] [address] PCP - General Family Medicine 07/18/23 Michael Liu MD [address] [facility] [place] [address] Cardiology 04/01/23 Group, [facility] [address] [place] [address] Specialty Title 1 Tutor Cardiology 07/18/23 Ivan Severino MD [address] [place] [address] Specialty Title 1 Tutor Neurology 09/11/23 Dyana Moran MD [address] [place] [address] Internal Medicine 10/09/24 Music Engineer Relationship Specialty Start Date End Date Elmer Richards MD [address] [place] [address] PCP - General Family Medicine 07/18/23 Michael Liu MD [address] [facility] [place] [address] Cardiology 04/01/23 Group, [place] [facility] [address] [place] [address] Specialty Title 1 Tutor Cardiology 07/18/23 Ivan Severino MD [address] [place] [address] Specialty Title 1 Tutor Neurology 09/11/23 Dyana Moran MD [address] [place] [address] Internal Medicine 10/09/24 Music Engineer Relationship Specialty Start Date End Date Elmer Richards MD [address] [place] [address] PCP - General Family Medicine 07/18/23 Michael Liu MD [address] [place] [address] Cardiology 04/01/23 Group, [facility] [address] [place] [address] Specialty Title 1 Tutor Cardiology 07/18/23 Ivan Severino MD [address] [place] [address] Specialty Title 1 Tutor Neurology 09/11/23 Dyana Moran MD [address] [place] [address] Internal Medicine 10/09/24 Music Engineer Relationship Specialty Start Date End Date Elmer Richards MD [address] [place] [address] PCP - General Family Medicine 07/18/23 Michael Liu MD [address] [facility] [place] [address] Cardiology 04/01/23 Group, [facility] [address] [place] [address] Specialty Title 1 Tutor Cardiology 07/18/23 Ivan Severino MD [address] [place] [address] Specialty Title 1 Tutor Neurology 09/11/23 Dyana Moran MD [address] [place] [address] Internal Medicine 10/09/24 Music Engineer Relationship Specialty Start Date End Date Elmer Richards MD [address] [place] [address] PCP - General Family Medicine 07/18/23 Michael Liu MD [address] [facility] [place] [address] Cardiology 04/01/23 [facility], [facility] [facility] [address] [place] [address] Specialty Title 1 Tutor Cardiology 07/18/23 Ivan Severino MD [address] [place] [address] Specialty Title 1 Tutor Neurology 09/11/23 Dyana Moran MD [address] [place] [address] Internal Medicine 10/09/24 Team Status: Active Member Role/Relationship Status Dates Dr. Elmer Richards MD Primary Care Provider Active Team Status: Inactive Member Role/Relationship Status Dates Dr. Elmer Richards MD Primary Care Provider Active Start: August 06, 2024 End: August 06, 2024 Dr. Elmer Richards MD Referring Provider Active St art: August 06, 2024 End: August 06, 2024 Giovanni Ji TUNGSTEN TENDER, TUNGSTEN TENDER-C Attending Provider Active S tart: August 06, 2024 End: August 06, 2024 Team Status: Inactive Member Role/Relationship Status Dates Dr. Elmer Richards MD Primary Care Provider Active Start: August 31, 2024 End: August 31, 2024 Dr. Elmer Richards MD Attending Provider Active St art: August 31, 2024 End: August 31, 2024 Dr. Elmer Richards MD Referring Provider Active St art: August 31, 2024 End: August 31, 2024 Team Status: Inactive Member Role/Relationship Status Dates Dr. Elmer Richards MD Primary Care Provider Active Start: September 11, 2024 End: September 11, 2024 Dr. Michael Liu MD Attending Provider Active S tart: September 11, 2024 End: September 11, 2024 Team Status: Inactive Member Role/Relationship Status Dates Dr. Elmer Richards MD Primary Care Provider Active Start: October 09, 2024 End: October 09, 2024 Dr. Marcello Doe MD Attending Provider Active Sta rt: October 09, 2024 End: October 09, 2024 Dr. Marcello Doe MD Emergency Provider Active Sta rt: October 09, 2024 End: October 09, 2024 Team Status: Active Member Role/Relationship Status Dates Dr. Major Hodge MD Attending Provider Active Start: October 09, 2024 Dr. Marcello Doe MD Referring Provider Active Sta rt: October 09, 2024 Team Status: Active Member Role/Relationship Status Dates Dr. Elmer Richards MD Primary Care Provider Active Start: November 11, 2024 Dr. Elmer Richards MD Referring Provider Active St art: November 11, 2024 Jami Lpoez Attending Provider Active Start: 2024 Team Status: Inactive Member Role/Relationship Status Dates Dr. Elmer Richards MD Primary Care Provider Active Start: November 11, 2024 End: November 11, 2024 Dr. Elmer Richards MD Referring Provider Active St art: November 11, 2024 End: November 11, 2024 BERNARD Jasmine Attending Provider Active St art: November 11, 2024 End: November 11, 2024 Team Status: Inactive Member Role/Relationship Status Dates Dr. Elmer Richards MD Primary Care Provider Active Start: November 11, 2024 End: November 11, 2024 Dr. Elmer Richards MD Referring Provider Active St art: November 11, 2024 End: November 11, 2024 Jami Lopez Attending Provider Active Start: 2024 End: November 11, 2024 Music Engineer Relationship Specialty Start Date End Date Elmer Richards MD [address] [place] [address] PCP - General Family Medicine 07/18/23 Michael Liu MD [address] [facility] [place] [address] Cardiology 04/01/23 Group, [place] [facility] [address] [place] [address] Specialty Title 1 Tutor Cardiology 07/18/23 Ivan Severino MD [address] [place] [address] Specialty Title 1 Tutor Neurology 09/11/23 Dyana Moran MD [address] [place] [address] Internal Medicine 10/09/24 Music Engineer Relationship Specialty Start Date End Date Elmer Richards MD [address] [place] [address] PCP - General Family Medicine 07/18/23 Michael Liu MD [address] [facility] [place] [address] Cardiology 04/01/23 Group, [place] [facility] [address] [place] [address] Specialty Title 1 Tutor Cardiology 07/18/23 Ivan Severino MD [address] [place] [address] Specialty Title 1 Tutor Neurology 09/11/23 Dyana Moran MD [address] [place] [address] Internal Medicine 10/09/24 Music Engineer Relationship Specialty Start Date End Date Elmer Richards MD [address] [place] [address] PCP - General Family Medicine 07/18/23 Michael Liu MD [address] [place] [address] Cardiology 04/01/23 Group, [place] [facility] [address] [place] [address] Specialty Title 1 Tutor Cardiology 07/18/23 Ivan Severino MD [address] [place] [address] Specialty Title 1 Tutor Neurology 09/11/23 Dyana Moran MD [address] [place] [address] Internal Medicine 10/09/24 Music Engineer Relationship Specialty Start Date End Date Elmer Richards MD [address] [place] [address] PCP - General Family Medicine 07/18/23 Michael Liu MD [address] [place] [address] Cardiology 04/01/23 Group, [facility] [address] [place] [address] Specialty Title 1 Tutor Cardiology 07/18/23 Ivan Severino MD [address] [place] [address] Specialty Title 1 Tutor Neurology 09/11/23 Dyana Moran MD [address] [place], [place] [address] Internal Medicine 10/09/24 Music Engineer Relationship Specialty Start Date End Date Elmer Richards MD [address] [place] [address] PCP - General Family Medicine 07/18/23 Michael Liu MD [address] [facility] [place] [address] Cardiology 04/01/23 [facility] [address] [place] [address] Specialty Title 1 Tutor Cardiology 07/18/23 Ivan Severino MD [address] [place] [address] Specialty Title 1 Tutor Neurology 09/11/23 Dyana Moran MD [address] [place] [address] Internal Medicine 10/09/24 Team Status: Inactive Member Role/Relationship Status Dates Dr. Elmer Richards MD Primary Care Provider Active Start: November 11, 2024 End: November 11, 2024 Dr. Michael Liu MD Attending Provider Active S tart: November 11, 2024 End: November 11, 2024 Team Status: Inactive Member Role/Relationship Status Dates Dr. Elmer Richards MD Primary Care Provider Active Start: November 11, 2024 End: November 11, 2024 Dr. Elmer Richards MD Referring Provider Active St art: November 11, 2024 End: November 11, 2024 Jami Lopez Attending Provider Active Start: Barry parsons 2024 End: November 11, 2024 Team Status: Inactive Member Role/Relationship Status Dates Dr. Elmer Richards MD Primary Care Provider Active Start: November 11, 2024 End: November 11, 2024 Dr. Elmer Richards MD Referring Provider Active St art: November 11, 2024 End: November 11, 2024 BERNARD Jasmine Attending Provider Active St art: November 11, 2024 End: November 11, 2024 Team Status: Inactive Member Role/Relationship Status Dates Dr. Elmer Richards MD Primary Care Provider Active Start: November 19, 2024 End: November 19, 2024 Dr. Elmer Richards MD Referring Provider Active St art: November 19, 2024 End: November 19, 2024 Josey Lynn TUNGSTEN TENDER-C Attending Provider Active Start: November 19, 2024 End: November 19, 2024 Music Engineer Relationship Specialty Start Date End Date Elmer Richards MD [address] [place] [address] PCP - General Family Medicine 07/18/23 Michael Liu MD [address] [facility] [place] [address] Cardiology 04/01/23 [facility], [facility] [address] [place] [address] Specialty Title 1 Tutor Cardiology 07/18/23 Ivan Severino MD [address] [facility] [address] [place] [address] Specialty Title 1 Tutor Neurology 09/11/23 Dyana Moran MD [address] [place], [place] [address] Internal Medicine 10/09/24 Team Status: Inactive Member Role/Relationship Status Dates Dr. Elmer Richards MD Primary Care Provider Active Start: August 31, 2024 End: August 31, 2024 Dr. Elmer Richards MD Attending Provider Active St art: August 31, 2024 End: August 31, 2024 Dr. Elmer Richards MD Referring Provider Active St art: August 31, 2024 End: August 31, 2024 Team Status: Inactive Member Role/Relationship Status Dates Dr. Elmer Richards MD Primary Care Provider Active Start: September 11, 2024 End: September 11, 2024 Dr. Michael Liu MD Attending Provider Active S tart: September 11, 2024 End: September 11, 2024 Team Status: Inactive Member Role/Relationship Status Dates Dr. Elmer Richards MD Primary Care Provider Active Start: October 09, 2024 End: October 09, 2024 Dr. Marcello Doe MD Attending Provider Active Sta rt: October 09, 2024 End: October 09, 2024 Dr. Marcello Doe MD Emergency Provider Active Sta rt: October 09, 2024 End: October 09, 2024 Team Status: Active Member Role/Relationship Status Dates Dr. Major Hodge MD Attending Provider Active Start: October 09, 2024 Dr. Marcello Doe MD Referring Provider Active Sta rt: October 09, 2024 Team Status: Inactive Member Role/Relationship Status Dates Dr. Elmer Richards MD Primary Care Provider Active Start: November 11, 2024 End: November 11, 2024 Dr. Michael Liu MD Attending Provider Active S tart: November 11, 2024 End: November 11, 2024 Team Status: Inactive Member Role/Relationship Status Dates Dr. Elmer Richards MD Primary Care Provider Active Start: November 11, 2024 End: November 11, 2024 Dr. Elmer Richards MD Referring Provider Active St art: November 11, 2024 End: November 11, 2024 Dr. Michael Liu MD Attending Provider Active S tart: November 11, 2024 End: November 11, 2024 Team Status: Inactive Member Role/Relationship Status Dates Dr. Elmer Richards MD Primary Care Provider Active Start: November 19, 2024 End: November 19, 2024 Dr. Elmer Richards MD Referring Provider Active St art: November 19, 2024 End: November 19, 2024 MIGUEL Moy Attending Provider Active Start: November 19, 2024 End: November 19, 2024 Team Status: Inactive Member Role/Relationship Status Dates Dr. Elmer Richards MD Primary Care Provider Active Start: December 12, 2024 End: December 12, 2024 Dr. Michael Liu MD Attending Provider Active S tart: December 12, 2024 End: December 12, 2024 Music Engineer Relationship Specialty Start Date End Date Elmer Richards MD [address] [place] [address] PCP - General Family Medicine 07/18/23 Michael Liu MD [address] [place] [address] Cardiology 04/01/23 Group, [facility] [address] [place] [address] Specialty Title 1 Tutor Cardiology 07/18/23 Ivan Severino MD [address] [place] [address] Specialty Title 1 Tutor Neurology 09/11/23 Dyana Moran MD [address] [place] [address] Internal Medicine 10/09/24 Music Engineer Relationship Specialty Start Date End Date Elmer Richards MD [address] [place] [address] PCP - General Family Medicine 07/18/23 Michael Liu MD [address] [facility] [place] [address] Cardiology 04/01/23 Group, [facility] [address] [place] [address] Specialty Title 1 Tutor Cardiology 07/18/23 Ivan Severino MD [address] [place] [address] Specialty Title 1 Tutor Neurology 09/11/23 Dyana Moran MD [address] [place] [address] Internal Medicine 10/09/24 Team Status: Active Member Role/Relationship Status Dates Dr. Elmer Richards MD Primary care physician Active Team Status: Inactive Member Role/Relationship Status Dates Dr. Elmer Richards MD Primary care physician Active Start: November 11, 2024 End: November 11, 2024 Dr. Michael Liu MD Attending physician Active Start: November 11, 2024 End: November 11, 2024 Team Status: Inactive Member Role/Relationship Status Dates Dr. Elmer Richards MD Primary care physician Active Start: November 11, 2024 End: November 11, 2024 Dr. Elmer Richards MD Referring Provider Active St art: November 11, 2024 End: November 11, 2024 Dr. Michael Liu MD Attending physician Active Start: November 11, 2024 End: November 11, 2024 Team Status: Inactive Member Role/Relationship Status Dates Dr. Elmer Richards MD Primary care physician Active Start: November 11, 2024 End: November 11, 2024 Dr. Elmer Richards MD Referring Provider Active St art: November 11, 2024 End: November 11, 2024 BERNARD Jasmine Attending physician Active S tart: November 11, 2024 End: November 11, 2024 Team Status: Inactive Member Role/Relationship Status Dates Dr. Elmer Richards MD Primary care physician Active Start: November 19, 2024 End: November 19, 2024 Dr. Elmer Richards MD Referring Provider Active St art: November 19, 2024 End: November 19, 2024 MIGUEL Moy Attending physician Active Start: November 19, 2024 End: November 19, 2024 Team Status: Inactive Member Role/Relationship Status Dates Dr. Elmer Richards MD Primary care physician Active Start: December 12, 2024 End: December 12, 2024 Dr. Michael Liu MD Attending physician Active Start: December 12, 2024 End: December 12, 2024 Team Status: Inactive Member Role/Relationship Status Dates Dr. Elmer Richards MD Primary care physician Active Start: February 16, 2025 End: February 16, 2025 Dr. Michael Liu MD Attending physician Active Start: February 16, 2025 End: February 16, 2025 Team Status: Inactive Member Role/Relationship Status Dates Dr. Elmer Richards MD Primary care physician Active Start: February 16, 2025 End: February 16, 2025 Dr. Elmer Richards MD Referring Provider Active St art: February 16, 2025 End: February 16, 2025 Dr. Michael Liu MD Attending physician Active Start: February 16, 2025 End: February 16, 2025 Source Comments (unrecognize d section and content) In the event this informatio n is protected by the Federal Confidentiality of Alcohol and Drug Abuse Patient Records regulations: The Federal rules restrict any use of the information to criminally investigate or prosecute any alcohol or drug abuse patient.[facility] the event this information is protected by the Federal Confidentiality of Alcohol and Drug Abuse Patient Records regulations: The Federal rules restrict any use of the information to criminally investigate or prosecute any alcohol or drug abuse patient.[facility] CampusIn the event this information is protected by the Federal Confidentiality of Alcohol and Drug Abuse Patient Records regulations: The Federal rules restrict any use of the information to criminally investigate or prosecute any alcohol or drug abuse patient.[facility] CampusIn the event this information is protected by the Federal Confidentiality of Alcohol and Drug Abuse Patient Records regulations: The Federal rules restrict any use of the information to criminally investigate or prosecute any alcohol or drug abuse patient.[facility] CampusIn the event this information is protected by the Federal Confidentiality of Alcohol and Drug Abuse Patient Records regulations: The Federal rules restrict any use of the information to criminally investigate or prosecute any alcohol or drug abuse patient.[facility] CampusIn the event this information is protected by the Federal Confidentiality of Alcohol and Drug Abuse Patient Records regulations: The Federal rules restrict any use of the information to criminally investigate or prosecute any alcohol or drug abuse patient.[facility] CampusIn the event this information is protected by the Federal Confidentiality of Alcohol and Drug Abuse Patient Records regulations: The Federal rules restrict any use of the information to criminally investigate or prosecute any alcohol or drug abuse patient.[facility] CampusIn the event this information is protected by the Federal Confidentiality of Alcohol and Drug Abuse Patient Records regulations: The Federal rules restrict any use of the information to criminally investigate or prosecute any alcohol or drug abuse patient.[facility] Campus[facility] the event this information is protected by the Federal Confidentiality of Alcohol and Drug Abuse Patient Records regulations: The Federal rules restrict any use of the information to criminally investigate or prosecute any alcohol or drug abuse patient.[facility] CampusIn the event this information is protected by the Federal Confidentiality of Alcohol and Drug Abuse Patient Records regulations: The Federal rules restrict any use of the information to criminally investigate or prosecute any alcohol or drug abuse patient.[facility] CampusIn the event this information is protected by the Federal Confidentiality of Alcohol and Drug Abuse Patient Records regulations: The Federal rules restrict any use of the information to criminally investigate or prosecute any alcohol or drug abuse patient.[facility] CampusIn the event this information is protected by the Federal Confidentiality of Alcohol and Drug Abuse Patient Records regulations: The Federal rules restrict any use of the information to criminally investigate or prosecute any alcohol or drug abuse patient.[facility] CampusIn the event this information is protected by the Federal Confidentiality of Alcohol and Drug Abuse Patient Records regulations: The Federal rules restrict any use of the information to criminally investigate or prosecute any alcohol or drug abuse patient.[facility] CampusIn the event this information is protected by the Federal Confidentiality of Alcohol and Drug Abuse Patient Records regulations: The Federal rules restrict any use of the information to criminally investigate or prosecute any alcohol or drug abuse patient.[facility] CampusIn the event this information is protected by the Federal Confidentiality of Alcohol and Drug Abuse Patient Records regulations: The Federal rules restrict any use of the information to criminally investigate or prosecute any alcohol or drug abuse patient.[facility] CampusIn the event this information is protected by the Federal Confidentiality of Alcohol and Drug Abuse Patient Records regulations: The Federal rules restrict any use of the information to criminally investigate or prosecute any alcohol or drug abuse patient.[facility] CampusIn the event this information is protected by the Federal Confidentiality of Alcohol and Drug Abuse Patient Records regulations: The Federal rules restrict any use of the information to criminally investigate or prosecute any alcohol or drug abuse patient.[facility] CampusIn the event this information is protected by the Federal Confidentiality of Alcohol and Drug Abuse Patient Records regulations: The Federal rules restrict any use of the information to criminally investigate or prosecute any alcohol or drug abuse patient.[facility] CampusIn the event this information is protected by the Federal Confidentiality of Alcohol and Drug Abuse Patient Records regulations: The Federal rules restrict any use of the information to criminally investigate or prosecute any alcohol or drug abuse patient.[facility] CampusIn the event this information is protected by the Federal Confidentiality of Alcohol and Drug Abuse Patient Records regulations: The Federal rules restrict any use of the information to criminally investigate or prosecute any alcohol or drug abuse patient.[facility] CampusIn the event this information is protected by the Federal Confidentiality of Alcohol and Drug Abuse Patient Records regulations: The Federal rules restrict any use of the information to criminally investigate or prosecute any alcohol or drug abuse patient.[facility] CampusIn the event this information is protected by the Federal Confidentiality of Alcohol and Drug Abuse Patient Records regulations: The Federal rules restrict any use of the information to criminally investigate or prosecute any alcohol or drug abuse patient.[facility] CampusIn the event this information is protected by the Federal Confidentiality of Alcohol and Drug Abuse Patient Records regulations: The Federal rules restrict any use of the information to criminally investigate or prosecute any alcohol or drug abuse patient.[facility] CampusIn the event this information is protected by the Federal Confidentiality of Alcohol and Drug Abuse Patient Records regulations: The Federal rules restrict any use of the information to criminally investigate or prosecute any alcohol or drug abuse patient.[facility] CampusIn the event this information is protected by the Federal Confidentiality of Alcohol and Drug Abuse Patient Records regulations: The Federal rules restrict any use of the information to criminally investigate or prosecute any alcohol or drug abuse patient.[facility] CampusIn the event this information is protected by the Federal Confidentiality of Alcohol and Drug Abuse Patient Records regulations: The Federal rules restrict any use of the information to criminally investigate or prosecute any alcohol or drug abuse patient.[facility] CampusIn the event this information is protected by the Federal Confidentiality of Alcohol and Drug Abuse Patient Records regulations: The Federal rules restrict any use of the information to criminally investigate or prosecute any alcohol or drug abuse patient.[facility] CampusIn the event this information is protected by the Federal Confidentiality of Alcohol and Drug Abuse Patient Records regulations: The Federal rules restrict any use of the information to criminally investigate or prosecute any alcohol or drug abuse patient.[facility] CampusIn the event this information is protected by the Federal Confidentiality of Alcohol and Drug Abuse Patient Records regulations: The Federal rules restrict any use of the information to criminally investigate or prosecute any alcohol or drug abuse patient.[facility] CampusIn the event this information is protected by the Federal Confidentiality of Alcohol and Drug Abuse Patient Records regulations: The Federal rules restrict any use of the information to criminally investigate or prosecute any alcohol or drug abuse patient.[facility] CampusIn the event this information is protected by the Federal Confidentiality of Alcohol and Drug Abuse Patient Records regulations: The Federal rules restrict any use of the information to criminally investigate or prosecute any alcohol or drug abuse patient.[facility] CampusIn the event this information is protected by the Federal Confidentiality of Alcohol and Drug Abuse Patient Records regulations: The Federal rules restrict any use of the information to criminally investigate or prosecute any alcohol or drug abuse patient.[facility] CampusIn the event this information is protected by the Federal Confidentiality of Alcohol and Drug Abuse Patient Records regulations: The Federal rules restrict any use of the information to criminally investigate or prosecute any alcohol or drug abuse patient.[facility] CampusIn the event this information is protected by the Federal Confidentiality of Alcohol and Drug Abuse Patient Records regulations: The Federal rules restrict any use of the information to criminally investigate or prosecute any alcohol or drug abuse patient.[facility] CampusIn the event this information is protected by the Federal Confidentiality of Alcohol and Drug Abuse Patient Records regulations: The Federal rules restrict any use of the information to criminally investigate or prosecute any alcohol or drug abuse patient.[facility] CampusIn the event this information is protected by the Federal Confidentiality of Alcohol and Drug Abuse Patient Records regulations: The Federal rules restrict any use of the information to criminally investigate or prosecute any alcohol or drug abuse patient.[facility] CampusIn the event this information is protected by the Federal Confidentiality of Alcohol and Drug Abuse Patient Records regulations: The Federal rules restrict any use of the information to criminally investigate or prosecute any alcohol or drug abuse patient.[facility] CampusIn the event this information is protected by the Federal Confidentiality of Alcohol and Drug Abuse Patient Records regulations: The Federal rules restrict any use of the information to criminally investigate or prosecute any alcohol or drug abuse patient.[facility] CampusIn the event this information is protected by the Federal Confidentiality of Alcohol and Drug Abuse Patient Records regulations: The Federal rules restrict any use of the information to criminally investigate or prosecute any alcohol or drug abuse patient.[facility] CampusIn the event this information is protected by the Federal Confidentiality of Alcohol and Drug Abuse Patient Records regulations: The Federal rules restrict any use of the information to criminally investigate or prosecute any alcohol or drug abuse patient.[facility] CampusIn the event this information is protected by the Federal Confidentiality of Alcohol and Drug Abuse Patient Records regulations: The Federal rules restrict any use of the information to criminally investigate or prosecute any alcohol or drug abuse patient.[facility] CampusIn the event this information is protected by the Federal Confidentiality of Alcohol and Drug Abuse Patient Records regulations: The Federal rules restrict any use of the information to criminally investigate or prosecute any alcohol or drug abuse patient.[facility] CampusIn the event this information is protected by the Federal Confidentiality of Alcohol and Drug Abuse Patient Records regulations: The Federal rules restrict any use of the information to criminally investigate or prosecute any alcohol or drug abuse patient.[facility] CampusIn the event this information is protected by the Federal Confidentiality of Alcohol and Drug Abuse Patient Records regulations: The Federal rules restrict any use of the information to criminally investigate or prosecute any alcohol or drug abuse patient.[facility] CampusIn the event this information is protected by the Federal Confidentiality of Alcohol and Drug Abuse Patient Records regulations: The Federal rules restrict any use of the information to criminally investigate or prosecute any alcohol or drug abuse patient.[facility] CampusIn the event this information is protected by the Federal Confidentiality of Alcohol and Drug Abuse Patient Records regulations: The Federal rules restrict any use of the information to criminally investigate or prosecute any alcohol or drug abuse patient.[facility] CampusIn the event this information is protected by the Federal Confidentiality of Alcohol and Drug Abuse Patient Records regulations: The Federal rules restrict any use of the information to criminally investigate or prosecute any alcohol or drug abuse patient.[facility] CampusIn the event this information is protected by the Federal Confidentiality of Alcohol and Drug Abuse Patient Records regulations: The Federal rules restrict any use of the information to criminally investigate or prosecute any alcohol or drug abuse patient.[facility] CampusIn the event this information is protected by the Federal Confidentiality of Alcohol and Drug Abuse Patient Records regulations: The Federal rules restrict any use of the information to criminally investigate or prosecute any alcohol or drug abuse patient.[facility] CampusIn the event this information is protected by the Federal Confidentiality of Alcohol and Drug Abuse Patient Records regulations: The Federal rules restrict any use of the information to criminally investigate or prosecute any alcohol or drug abuse patient.[facility] CampusIn the event this information is protected by the Federal Confidentiality of Alcohol and Drug Abuse Patient Records regulations: The Federal rules restrict any use of the information to criminally investigate or prosecute any alcohol or drug abuse patient.[facility] CampusIn the event this information is protected by the Federal Confidentiality of Alcohol and Drug Abuse Patient Records regulations: The Federal rules restrict any use of the information to criminally investigate or prosecute any alcohol or drug abuse patient.[facility] CampusIn the event this information is protected by the Federal Confidentiality of Alcohol and Drug Abuse Patient Records regulations: The Federal rules restrict any use of the information to criminally investigate or prosecute any alcohol or drug abuse patient.[facility] CampusIn the event this information is protected by the Federal Confidentiality of Alcohol and Drug Abuse Patient Records regulations: The Federal rules restrict any use of the information to criminally investigate or prosecute any alcohol or drug abuse patient.[facility] CampusIn the event this information is protected by the Federal Confidentiality of Alcohol and Drug Abuse Patient Records regulations: The Federal rules restrict any use of the information to criminally investigate or prosecute any alcohol or drug abuse patient.[facility] CampusIn the event this information is protected by the Federal Confidentiality of Alcohol and Drug Abuse Patient Records regulations: The Federal rules restrict any use of the information to criminally investigate or prosecute any alcohol or drug abuse patient.[facility] CampusIn the event this information is protected by the Federal Confidentiality of Alcohol and Drug Abuse Patient Records regulations: The Federal rules restrict any use of the information to criminally investigate or prosecute any alcohol or drug abuse patient.[facility] CampusIn the event this information is protected by the Federal Confidentiality of Alcohol and Drug Abuse Patient Records regulations: The Federal rules restrict any use of the information to criminally investigate or prosecute any alcohol or drug abuse patient.[facility] CampusIn the event this information is protected by the Federal Confidentiality of Alcohol and Drug Abuse Patient Records regulations: The Federal rules restrict any use of the information to criminally investigate or prosecute any alcohol or drug abuse patient.[facility] CampusIn the event this information is protected by the Federal Confidentiality of Alcohol and Drug Abuse Patient Records regulations: The Federal rules restrict any use of the information to criminally investigate or prosecute any alcohol or drug abuse patient.[facility] CampusIn the event this information is protected by the Federal Confidentiality of Alcohol and Drug Abuse Patient Records regulations: The Federal rules restrict any use of the information to criminally investigate or prosecute any alcohol or drug abuse patient.[facility] CampusIn the event this information is protected by the Federal Confidentiality of Alcohol and Drug Abuse Patient Records regulations: The Federal rules restrict any use of the information to criminally investigate or prosecute any alcohol or drug abuse patient.[facility] CampusIn the event this information is protected by the Federal Confidentiality of Alcohol and Drug Abuse Patient Records regulations: The Federal rules restrict any use of the information to criminally investigate or prosecute any alcohol or drug abuse patient.[facility] CampusIn the event this information is protected by the Federal Confidentiality of Alcohol and Drug Abuse Patient Records regulations: The Federal rules restrict any use of the information to criminally investigate or prosecute any alcohol or drug abuse patient.[facility] CampusIn the event this information is protected by the Federal Confidentiality of Alcohol and Drug Abuse Patient Records regulations: The Federal rules restrict any use of the information to criminally investigate or prosecute any alcohol or drug abuse patient.[facility] CampusIn the event this information is protected by the Federal Confidentiality of Alcohol and Drug Abuse Patient Records regulations: The Federal rules restrict any use of the information to criminally investigate or prosecute any alcohol or drug abuse patient.[facility] CampusIn the event this information is protected by the Federal Confidentiality of Alcohol and Drug Abuse Patient Records regulations: The Federal rules restrict any use of the information to criminally investigate or prosecute any alcohol or drug abuse patient.[facility] CampusIn the event this information is protected by the Federal Confidentiality of Alcohol and Drug Abuse Patient Records regulations: The Federal rules restrict any use of the information to criminally investigate or prosecute any alcohol or drug abuse patient.[facility] CampusIn the event this information is protected by the Federal Confidentiality of Alcohol and Drug Abuse Patient Records regulations: The Federal rules restrict any use of the information to criminally investigate or prosecute any alcohol or drug abuse patient.[facility] CampusIn the event this information is protected by the Federal Confidentiality of Alcohol and Drug Abuse Patient Records regulations: The Federal rules restrict any use of the information to criminally investigate or prosecute any alcohol or drug abuse patient.[facility] CampusIn the event this information is protected by the Federal Confidentiality of Alcohol and Drug Abuse Patient Records regulations: The Federal rules restrict any use of the information to criminally investigate or prosecute any alcohol or drug abuse patient.[facility] CampusIn the event this information is protected by the Federal Confidentiality of Alcohol and Drug Abuse Patient Records regulations: The Federal rules restrict any use of the information to criminally investigate or prosecute any alcohol or drug abuse patient.[facility] Reason for Visit (unrecogniz ed section and content) Reason Comments Received Outside Medical Records [facility] Reason Comments Received Outside Medical Records Imaging was pushed to [facility] Reason Comments Patient Update Patient states he ne eds an MRI, but unable to get done because of Fx lead. [facility] told patient to contact us regarding repair. 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 - Other Reason Comments Established Patient Reason Comments Patient Question Reason Comments Schedule Surgery Reason Comments Orders Reason Comments Preparations For Surgery Reason Comments Emergency Situation Reason Comments Radio Gen RMP Specialty Diagnoses / Procedures Referred By Contac t Referred To Contact [facility] Diagnoses Right knee pain, unspecified chronicity r knee Procedures RADIOLOGIC EXAMINATION KNEE 3 VIEWS XR [facility] Self Xray [facility] [address] [place] [address] Phone: tel: fax: Referral ID Status Reason Start Date Expiration Date Visits Re quested Visits Authorized [id number] Closed 07/20/2024 05/05/2025 1 1 Reason Comments Cardiac optimization letter Reason Comments Pre-Op Visit Reason Comments Pre-Op Teaching DOS 08/10/2024 Reason Comments Appointment Reason Onset Date Comments Refill Request 08/20/2024 Reason Comments Post Op Pt states " right hi p and right leg pain." Reason Comments Refill Request Reason Comments New Knee Pain Reason Comments Insurance Authorization Prior Auth Delay ed Additional Information Needed Requested Reason Comments Appointment Follow-up right knee pain. Reason Comments Back Pain Specialty Diagnoses / Procedures Referred By Contac t Referred To Contact Pain Management Diagnoses Status post lumbar spine operative procedure for decompression of spinal cord Procedures CONSULT TO PAIN MGT OFFICE/OUTPATIENT NEW HIGH MDM 60 MINUTES Shawn Everett MD [address] [place] [address] Phone: tel: fax: Ayaan Moreland MD [address] [place] [address] Phone: tel: fax: Referral ID Status Reason Start Date Expiration Date V isits Requested Visits Authorized [id number] Closed PCP Requested Referral 09/22/2024 09/22/2025 1 1 Reason Comments Knee Pain Established Patient Reason Comments Joint Pain New Patient Reason Comments Clinical Update Outside medical higinio rds including ov notes and imaging results Reason Comments Established Patient Knee Pain Specialty Diagnoses / Procedures Referred By Jose t Referred To Contact ORTHOPAEDIC SURGERY Diagnoses Primary osteoarthritis of right knee Procedures SYNVISC OR SYNVISC-ONE GEL-ONE PER DOSE synvisc one or payor preferred Stewart Franks PA-C [address] [address] Phone: tel: fax: Orthopaedics [address] [address] Phone: tel: Referral ID Status Reason Start Date Expiration Date V isits Requested Visits Authorized [id number] Authorized 10/26/2024 04/27/2025 99 99 Reason Comments Joint Pain Reason Comments Low Back Pain Right side-radiating to the buttock, lower limb and feet Reason Comments Psychology Services INFORMATION SOURCE (unrecogn ized section and content) DATE CREATED AUTHOR 01/08/2024 [facility] ([place]) DATE CREATED AUTHOR AUTHOR'S ORGANIZ ATION 03/01/2024 [facility] DATE CREATED AUTHOR AUTHOR'S ORGANIZ ATION 03/27/2024 [facility] DATE CREATED AUTHOR AUTHOR'S ORGANIZ ATION 06/26/2024 [facility] DATE CREATED AUTHOR AUTHOR'S ORGANIZ ATION 08/02/2024 [facility] DATE CREATED AUTHOR AUTHOR'S ORGANIZ ATION 10/29/2024 [facility] DATE CREATED AUTHOR AUTHOR'S ORGANIZ ATION 02/14/2025 [facility] DATE CREATED AUTHOR AUTHOR'S ORGANIZ ATION 02/24/2025 [facility] DATE CREATED AUTHOR AUTHOR'S ORGANIZ ATION 02/27/2025 [facility] DATE CREATED AUTHOR AUTHOR'S DIANNA CUMMINS 03/16/2025 [facility] FOR RECORDS PERTAINING TO PATIENTS WHO ARE OR HAVE BEEN ENROLLED IN A CHEMICAL DEPENDENCY/SUBSTANCEABUSE PROGRAM, SOME INFORMATION MAY BE OMITTED. This clinical summary was aggregated from multiple sources. Caution should be exercised in using it in the provision of clinical care. This summary normalizes information from multiple sources, and as a consequence, information in this document may materially change the coding, format and clinical context of patient data. In addition, data may be omitted in some cases. CLINICAL DECISIONS SHOULD BE BASED ON THE PRIMARY CLINICAL RECORDS. [facility] provides no warranty or guarantee of the accuracy or completeness of information in this document.
== END | disposition home or self-care (01) ==
LOC: MTRAD 12:33
PROVIDERS: PCP Family Medicine; Referring Provider Family Medicine; Visit Provider Family Medicine
DX: J20.9 Acute bronchitis, unspecified (principal)
CPT/HCPCS: 71046